=== PATIENT | female | born 1940 | race Caucasian/White ===

== ENCOUNTER → 2018-01-07 02:07 | Outpatient (CLI) | payer MEDICARE, SELFPAY ==
[2018-01-07 08:31] LABS: Anion Gap 11.3 mmol/L (3-11); BUN 18 mg/dL (7-18); CO2 23.7 mmol/L (21.0-32.0); CREATININE 1.34 mg/dL (0.55-1.02); Calcium 8.9 mg/dL (8.5-10.1); Chloride 107 mmol/L (98-107); Estimated GFR 38.25 (mL/min/1.73m2); Glucose 93 mg/dL (70-100); Lithium 0.71 mmol/L (0.60-1.20); Potassium 4.6 mmol/L (3.5-5.1); Sodium 142 mmol/L (136-145)
== END ==
PROVIDERS: PCP Nurse Practitioner Family; Visit Provider Psychiatry & Neurology Psychiatry
DX: F31.9 Bipolar disorder, unspecified (principal); Z79.899 Other long term (current) drug therapy; I12.9 Hypertensive chronic kidney disease with stage 1 through stage 4 chronic kidney disease, or unspecified chronic kidney disease; N18.9 Chronic kidney disease, unspecified
CPT/HCPCS: 36415; 80048; 80178

== ENCOUNTER 2018-04-03 01:51 | Outpatient (CLI) | payer MEDICARE, SELFPAY ==
[2018-04-03 08:18] LABS: Anion Gap 9.3 mmol/L (3-11); BUN 16 mg/dL (7-18); CO2 24.7 mmol/L (21.0-32.0); CREATININE 1.31 mg/dL (0.55-1.02); Chloride 107 mmol/L (98-107); Estimated GFR 39.16 (mL/min/1.73m2); Glucose 95 mg/dL (70-100); Potassium 4.4 mmol/L (3.5-5.1); Sodium 141 mmol/L (136-145)
[2018-04-03 08:21] LABS: Lithium 0.61 mmol/L (0.60-1.20)
== END 2018-04-03 02:11 ==
PROVIDERS: PCP Nurse Practitioner Family; Visit Provider Psychiatry & Neurology Psychiatry
DX: Z79.899 Other long term (current) drug therapy (principal); Z51.81 Encounter for therapeutic drug level monitoring; F31.9 Bipolar disorder, unspecified; I10 Essential (primary) hypertension
CPT/HCPCS: 36415; 80048; 80178

== ENCOUNTER 2018-06-12 01:57 | Outpatient (CLI) | payer MEDICARE, SELFPAY ==
[2018-06-12 07:47] LABS: Absolute Basophil Count 0.01 k/cumm (0.0-0.2); Absolute Eosinophil Count 0.23 k/cumm (0.0-0.7); Absolute Lymphocyte Count 1.83 k/cumm (1.2-3.4); Absolute Monocyte Count 0.41 k/cumm (0.11-0.7); Basophils % 0.2; Eosinophils % 4.9; HCT 38.6 % (36.0-46.0); HGB 12.1 g/dL (12.0-15.5); Lymphocytes % 39.1; Mean Corp. HGB Concentration 31.3 g/dL (32.0-36.0); Mean Corpuscular Hemoglobin 27.3 pg (27.0-33.0); Mean Corpuscular Volume 86.9 fL (80-95); Mean Platelet Volume 9.2 fL (8.0-11.0); Monocytes % 8.8; Platelet Count 310 x1000/uL (130-400); RBC 4.44 m/cumm (4.00-5.20); RBC Distribution Width 14.8 % (11.7-14.6); White Blood Cell Count 4.68 k/cumm (4.4-10.8)
[2018-06-12 08:17] LABS: Anion Gap 13.6 mmol/L (3-11); BUN 18 mg/dL (7-18); CO2 21.4 mmol/L (21.0-32.0); CREATININE 1.56 mg/dL (0.55-1.02); Chloride 108 mmol/L (98-107); Cholesterol 247 mg/dL (50-200); Estimated GFR 32.02 (mL/min/1.73m2); Glucose 105 mg/dL (70-100); HDL Cholesterol 44 mg/dL (40-60); LDL CHOLESTEROL 163 mg/dL (<100); Potassium 4.2 mmol/L (3.5-5.1); Sodium 143 mmol/L (136-145); Triglyceride 223 mg/dL (30-150)
[2018-06-12 08:25] LABS: TSH (W/Ref FT4) 0.68 uIU/mL (0.358-3.74)
== END 2018-06-12 02:17 ==
PROVIDERS: PCP Nurse Practitioner Family; Visit Provider Psychiatry & Neurology Psychiatry
DX: E03.9 Hypothyroidism, unspecified (principal); E78.5 Hyperlipidemia, unspecified; I12.9 Hypertensive chronic kidney disease with stage 1 through stage 4 chronic kidney disease, or unspecified chronic kidney disease; N18.9 Chronic kidney disease, unspecified; F32.9 Major depressive disorder, single episode, unspecified; Z51.81 Encounter for therapeutic drug level monitoring; Z79.899 Other long term (current) drug therapy
CPT/HCPCS: 36415; 80048; 80061; 83721; 80178; 84443; 85025

== ENCOUNTER 2018-12-12 01:58 | Outpatient (CLI) | payer MEDICARE, SELFPAY ==
[2018-12-12 09:02] LABS: Lithium 0.54 mmol/L (0.60-1.20)
[2018-12-12 09:18] LABS: Anion Gap 11.9 mmol/L (3-11); BUN 22 mg/dL (7-18); CO2 22.1 mmol/L (21.0-32.0); CREATININE 1.35 mg/dL (0.55-1.02); Calcium 9.2 mg/dL (8.5-10.1); Chloride 108 mmol/L (98-107); Estimated GFR 37.83 (mL/min/1.73m2); Glucose 100 mg/dL (70-100); Potassium 4.2 mmol/L (3.5-5.1); Sodium 142 mmol/L (136-145); TSH 1.28 uIU/mL (0.358-3.74)
== END 2018-12-12 02:18 ==
PROVIDERS: PCP Nurse Practitioner Family; Visit Provider Psychiatry & Neurology Psychiatry
DX: Z79.899 Other long term (current) drug therapy (principal); Z51.81 Encounter for therapeutic drug level monitoring; E03.9 Hypothyroidism, unspecified; I10 Essential (primary) hypertension; F31.9 Bipolar disorder, unspecified
CPT/HCPCS: 36415; 80048; 80178; 84443

== ENCOUNTER 2018-12-20 23:05 | Emergency (ER) | payer MEDICARE, SELFPAY ==
[2018-12-20] VITALS (11 sets, daily range): BP systolic 131–156; BP diastolic 71–78; PULSE 92–99; RESP 18–26; TEMP 36.6; O2SAT 94–97
--- NOTE | 2018-12-20 23:23 | W.ED.GENAD ---
Discharge Plan Disposition Patient Disposition: HOME Condition: Good Discharge Details Chief Complaint: Nausea/Vomit/Diar Clinical Impression: Nausea, vomiting and diarrhea, Dizziness Primary Care Provider: Patricia Goss ED Provider: Tawanda Lee [place] Meds and New Rx's Prescriptions: New ondansetron 4 mg tablet,disintegrating 4 mg PO Q8H PRN (Reason: nausea and vomiting) Qty: 10 RF: 0 meclizine 25 mg tablet 25 mg PO BID PRN (Reason: dizziness) Qty: 10 RF: 0 Continued psyllium husk [Metamucil] 0.4 gram capsule 0.4 gm PO DAILY Qty: 90 RF: 3 multivitamin 1 EACH tablet 1 ea PO DAILY RF: 0 cholecalciferol (vitamin D3) [Vitamin D3] 2,000 UNIT tablet 2,000 unit PO DAILY RF: 0 acetaminophen [Tylenol Extra Strength] 500 MG tablet 500 mg PO Q6H PRN RF: 0 aspirin [Aspirin Low-Strength] 81 MG tablet,chewable 81 mg PO DAILY RF: 0 nortriptyline 25 MG capsule 50 mg PO HS RF: 0 lithium carbonate 450 MG tablet extended release 300 mg PO HS RF: 0 lorazepam 0.5 MG tablet 1 mg PO TID RF: 0 quetiapine [Seroquel] 50 MG tablet 100 mg PO HS RF: 0 polyethylene glycol 3350 [Miralax] 17 GM powder in packet 17 gm PO daily prn PRNQty: 1 RF: 11 Varicella-Zoster Ge/As01b/Pf [Shingrix Vial Kit] 50 MCG INJ 50 mcg IM ONCE Qty: 1 RF: 1 sodium chloride [Saline Nasal Mist] 44 ML aerosol,spray 44 ml NS QID Qty: 1 RF: 0 metoprolol succinate 50 mg tablet extended release 24 hr 50 mg PO DAILY Qty: 30 RF: 11 folic acid 1 mg tablet 1 mg PO DAILY Qty: 30 RF: 11 amlodipine 5 mg tablet 5 mg PO DAILY Qty: 30 RF: 11 pantoprazole 40 mg tablet,delayed release (DR/EC) 40 mg PO DAILY Qty: 30 RF: 11 levothyroxine 50 mcg tablet 50 mcg PO DAILY Qty: 30 RF: 11 Discharge Instructions Instructions: Acute Nausea and Vomiting (ED), Dizziness (ED) Additional Instructions: Take it easy over the weekend. Patient ordered to stay hydrated and drink fluids. Stick with a bland diet. You may use ondansetron for nausea and vomiting. You may use meclizine for dizziness. Follow-up with primary care next week. Return to the ED if you develop worsening dizziness, inability to ambulate, persistent vomiting, severe headache, new neurological changes, chest pain, other concerns. Referrals: Patricia Goss NP [Primary Care Provider] - Medical Decision Making Patient presenting with vomiting and diarrhea, onset tonight. Denies any pain. Is quite uncomfortable from nausea. IV established and laboratory studies obtained. Zofran and LR ordered. EKG is sinus at 99. Nonspecific ST changes noted. Nothing acute. 00:15 -patient's laboratory studies for the most part are unremarkable. White count is normal. Hemoglobin is normal. Chemistries with a baseline creatinine of 1.4. Little bit of an anion gap which has been present previously. Potassium a little low at 3.3. Liver function normal. Magnesium normal. [place] level low. Patient complains she still feels unwell although is very vague and nonspecific. Continues to deny pain. Has significant problems with anxiety. States she is feeling dizzy when she gets up but she has not got up while here. I am going to give a low dose of IV Ativan. Continue fluids. Give her a p.o. challenge and check orthostatics and ambulation. 02:30 -patient was able to ambulate to the bathroom without difficulty. She is not orthostatic at all. She still complains of being dizzy but cannot really describe that for me. Daughter reports prior history of vertigo. Patient is not really reporting the spinning sensation to me. She is tolerating zafar mello. Ativan did not seem to help her at all. Daughter cannot recall the name of medication she is used for vertigo in the past. Patient given dose of Antivert. Subsequently fell asleep. When she woke she actually stated she felt better. I do not think this is stroke related. She is nonfocal neurologically and she ambulated without difficulty. Will discharge home with prescription for Zofran and Antivert and have her follow-up with primary care next week. Return to the ED over the weekend if any worsening vertigo, new neurologic changes, persistent vomiting, chest pain, other concerns. Medical Records Medical records reviewed: Yes I reviewed the patient's medical records. Lab Data Lab results reviewed: Yes I reviewed the patient's lab results. ECG Data Attestation: I personally reviewed and interpreted this ECG (s) as follows: Prior ECG tracings: available for review Interpretation: Sinus rhythm at 99. Normal axis and intervals. Nonspecific ST changes, nondiagnostic. HPI General Mode of arrival: wheelchair. Date/Time Provider Initiated Documentation: 12/20/18 23:19. Limitations to Documentation: no limitations. Information obtained by: patient, family, RN notes reviewed and old records reviewed. HPI Narrative: Patient is brought in by daughter for evaluation of nausea, vomiting and diarrhea that started a couple of hours ago. She had some dizziness last night but no vomiting or diarrhea. She saw her primary care today for medication refills. Tonight began to have vomiting and diarrhea. She is also feeling dizzy again. She denies pain anywhere. Specifically no headache, chest pain/pressure, abdominal pain. There is been no hematemesis or hematochezia. She had no fever. Patient herself is not really answering a lot of questions because she is so uncomfortable from the nausea. Related Data Home Medications Medication Instructions Recorded Confirmed cholecalciferol (vitamin D3) 2,000 unit PO DAILY 09/18/12 12/20/18 [Vitamin D3] multivitamin 1 ea PO DAILY 09/18/12 12/20/18 acetaminophen [Tylenol Extra 500 mg PO Q6H PRN 12/31/13 12/20/18 Strength] aspirin [Aspirin Low-Strength] 81 mg PO DAILY tab.chew 12/11/14 12/20/18 nortriptyline 50 mg PO HS 06/17/15 12/20/18 lithium carbonate 300 mg PO HS 10/31/17 12/20/18 lorazepam 1 mg PO TID tab-cap 10/31/17 12/20/18 quetiapine [Seroquel] 100 mg PO HS 10/31/17 12/20/18 polyethylene glycol 3350 [Miralax] 17 gm PO daily prn PRN #1 canister 12/06/17 12/20/18 sodium chloride [Saline Nasal Mist] 44 ml NS QID #1 bottle 12/26/17 12/20/18 psyllium husk 0.4 gram capsule 0.4 gm PO DAILY #90 cap 06/07/18 12/20/18 amlodipine 5 mg tablet 5 mg PO DAILY #30 tab-cap 11/20/18 12/20/18 folic acid 1 mg tablet 1 mg PO DAILY #30 tab 11/20/18 12/20/18 levothyroxine 50 mcg tablet 50 mcg PO DAILY #30 tab 11/20/18 12/20/18 metoprolol succinate 50 mg 50 mg PO DAILY #30 tab-cap 11/20/18 12/20/18 tablet,extended release 24 hr pantoprazole 40 mg tablet,delayed 40 mg PO DAILY #30 tab 11/20/18 12/20/18 release meclizine 25 mg PO BID PRN #10 tab 12/21/18 ondansetron 4 mg PO Q8H PRN #10 tab 12/21/18 Previous Rx's Medication Instructions Recorded sodium chloride [Saline Nasal Mist] 44 ml NS QID #1 bottle 12/26/17 psyllium husk 0.4 gram capsule 0.4 gm PO DAILY #90 cap 06/07/18 amlodipine 5 mg tablet 5 mg PO DAILY #30 tab-cap 11/20/18 folic acid 1 mg tablet 1 mg PO DAILY #30 tab 11/20/18 levothyroxine 50 mcg tablet 50 mcg PO DAILY #30 tab 11/20/18 metoprolol succinate 50 mg 50 mg PO DAILY #30 tab-cap 11/20/18 tablet,extended release 24 hr pantoprazole 40 mg tablet,delayed 40 mg PO DAILY #30 tab 11/20/18 release meclizine 25 mg PO BID PRN #10 tab 12/21/18 ondansetron 4 mg PO Q8H PRN #10 tab 12/21/18 Allergies Allergy/AdvReac Type Severity Reaction Status Date / Time fluoxetine Allergy Mild Unverified 12/20/18 09:53 olanzapine Allergy Mild Unverified 12/20/18 09:53 trazodone Allergy Mild Unverified 12/20/18 09:53 haloperidol AdvReac Severe Contraindic Unverified 12/20/18 09:53 ated Phenothiazines AdvReac Severe DYSTONIA Unverified 12/20/18 09:53 General Stated Complaint: Nausea/Vomit/Diar GRANT: 3 Review of Systems Review of Systems Unobtainable due to (patient not really answering questions at this time due to feeling unwell) [facility] Medical History (Updated 12/20/18 @ 23:34 by Tawanda Lee MD) Bipolar 2 disorder (Chronic 01/30/17) CKD (chronic kidney disease) Deep vein thrombosis (Resolved 12/08/13) ECT for depression, [facility] GERD (gastroesophageal reflux disease) (Chronic) HLD (hyperlipidemia) HTN (hypertension) Hypothyroidism (Chronic 11/11/12) Tardive dyskinesia (Chronic 04/17/16) Surgical History (Updated 12/20/18 @ 23:34 by Tawanda Lee MD) S/P ORIF (open reduction internal fixation) fracture (Acute) Social History Smoking/Tobacco Use Status: Never Alcohol Intake: former Drug use: Never Substance use type: does not use Number of Children: 2 Pets and animals: Yes Pets and animals: cat(s) Current gender identity: female What type of physical activity do you participate in: walking Frequency: daily Seatbelt use: always Do you feel safe at home: Yes Do you feel safe in your relationship?: Yes Exam Narrative Exam Narrative: Vitals: Afebrile. Tachypneic, tachycardic, elevated blood pressure, all likely related to anxiety and not feeling well. Normal saturations. Const: Elderly female who appears uncomfortable. HEENT: NC/AT. Normal facial exam. Eyes: Normal conjunctiva and sclera. Neck: Supple. Trachea midline. Lungs: Normal respiratory effort. Lungs are clear. Cor: RRR without murmur/gallop. Good distal pulses. GI: Soft. NT/ND. No guarding or rebound. Neuro: A+O x 3. CN grossly in tact. No focal deficits. Ext: No C/C/E. No deformity or tenderness. Skin: Warm and dry without rash. Course Vital Signs Temperature 97.9 F 12/20/18 23:11 Pulse 99 H 12/20/18 23:11 Respiratory Rate 26 H 12/20/18 23:11 Blood Pressure 156/74 H 12/20/18 23:11 Pulse Oximetry 95 12/20/18 23:11 Temperature 97.9 F 12/20/18 23:11 Pulse 99 H 12/20/18 23:11 Respiratory Rate 26 H 12/20/18 23:11 Blood Pressure 156/74 H 12/20/18 23:11 Blood Pressure Position Sitting 12/20/18 23:11 Pulse Oximetry 95 12/20/18 23:11 Oxygen Delivery Method Room Air 12/20/18 23:11 Oxygen Flow Rate 0 12/20/18 23:11
[2018-12-20 23:34] LABS: Abs Immature Grans 0.02 k/cumm (0.0-0.09); Absolute Basophil Count 0.01 k/cumm (0.0-0.2); Absolute Eosinophil Count 0.03 k/cumm (0.0-0.7); Absolute Lymphocyte Count 1.16 k/cumm (1.2-3.4); Absolute Monocyte Count 0.43 k/cumm (0.11-0.7); Absolute Neutrophil Count 7.62 k/cumm (1.2-6.7); Basophils % 0.1; Eosinophils % 0.3; HCT 37.6 % (36.0-46.0); HGB 12.2 g/dL (12.0-15.5); Immature Grans % 0.2; Lymphocytes % 12.5; Mean Corp. HGB Concentration 32.4 g/dL (32.0-36.0); Mean Corpuscular Volume 86.2 fL (80-95); Mean Platelet Volume 9.1 fL (8.0-11.0); Monocytes % 4.6; Neutrophils % 82.3; Platelet Count 264 x1000/uL (130-400); RBC 4.36 m/cumm (4.00-5.20); RBC Distribution Width 14.9 % (11.7-14.6); White Blood Cell Count 9.27 k/cumm (4.4-10.8)
[2018-12-20] MEDS: Lactated Ringers 1,000 ML 150 ML IV (23:34)
[2018-12-20] MEDS: Ondansetron 4 MG/2 ML VIAL IVP (23:34)
[2018-12-20 23:53] LABS: ALT 23 U/L (12-78); AST 19 U/L (15-37); Alkaline Phosphatase 83 U/L (46-116); Anion Gap 16.8 mmol/L (3-11); BUN 18 mg/dL (7-18); Bilirubin, Total 0.3 mg/dL (0.2-1.0); CO2 22.2 mmol/L (21.0-32.0); CREATININE 1.39 mg/dL (0.55-1.02); Calcium 9.1 mg/dL (8.5-10.1); Chloride 102 mmol/L (98-107); Estimated GFR 36.57 (mL/min/1.73m2); Glucose 179 mg/dL (70-100); Magnesium 2.1 mg/dL (1.8-2.4); Potassium 3.3 mmol/L (3.5-5.1); Sodium 141 mmol/L (136-145)
[2018-12-21] VITALS (23 sets, daily range): BP systolic 128–157; BP diastolic 67–92; PULSE 87–104; RESP 14–32; TEMP 36.8; O2SAT 95–98
[2018-12-21] LABS: Troponin I < 0.05 ng/mL (0.00-0.06)
[2018-12-21 00:04] LABS: Lithium 0.41 mmol/L (0.60-1.20)
[2018-12-21] MEDS: LORazepam 2 MG/ML VIAL 0.5 MG IVP (00:22)
--- NOTE | 2018-12-21 01:14 | NUR.NOTE ---
Nursing Note: Pt ambulated with steady gait stand by assist only to bathroom, voided then back into bed. Pt still c/o feeling dizzy. Dr. batres made aware.
--- NOTE | 2018-12-21 01:21 | NUR.NOTE ---
Nursing Note: Pt given zafar mello to sip on.
[2018-12-21] MEDS: Meclizine 25 MG TAB PO (01:30)
--- NOTE | 2018-12-21 02:13 | NUR.NOTE ---
Nursing Note: Pt tolerating po fluids.
== END 2018-12-21 02:47 | disposition home or self-care (01) ==
PROVIDERS: Emergency Provider Emergency Medicine; PCP Nurse Practitioner Family
DX: R11.2 Nausea with vomiting, unspecified (principal); R42 Dizziness and giddiness; F41.9 Anxiety disorder, unspecified; I12.9 Hypertensive chronic kidney disease with stage 1 through stage 4 chronic kidney disease, or unspecified chronic kidney disease; N18.9 Chronic kidney disease, unspecified
CPT/HCPCS: 36415; 80053; 93005; 96361; 96374; 96375; 99284; 80178; 83735; 84484; 85025; 93010; 99285; J2060; J2405

== ENCOUNTER 2019-01-11 14:05 | Emergency (ER) | payer MEDICARE, SELFPAY ==
--- NOTE | 2019-01-11 14:09 | NUR.NOTE ---
Nursing Note: daughter has taken PT in stating primary compliant of anxiety as a result of N/V/D that was present yesterday but absent today as well as a rash. PT has a history of anxiety and was given 1MG of ativan at 1300 daughter states that Ativan had no efect and PT is still nervous
[2019-01-11 14:14] VITALS: BP 137/77; PULSE 111; RESP 19; TEMP 36.5; O2SAT 98
[2019-01-11 15:13] LABS: Bilirubin Negative (Negative); Blood Negative (Negative); Clarity Clear (Clear); Glucose Negative (Negative); Ketones Negative (Negative); Leukocyte Esterase Negative (Negative); Nitrite Negative (Negative); Urobilinogen 0.2 EU/dL (Up TO 0.2); pH 7.5 (5-8)
[2019-01-11 15:50] LABS: Abs Immature Grans 0.01 k/cumm (0.0-0.09); Absolute Basophil Count 0.01 k/cumm (0.0-0.2); Absolute Eosinophil Count 0.08 k/cumm (0.0-0.7); Absolute Monocyte Count 0.71 k/cumm (0.11-0.7); Basophils % 0.1; Eosinophils % 0.8; HCT 40.5 % (36.0-46.0); Immature Grans % 0.1; Lymphocytes % 18.9; Mean Corp. HGB Concentration 32.1 g/dL (32.0-36.0); Mean Corpuscular Hemoglobin 27.8 pg (27.0-33.0); Mean Corpuscular Volume 86.5 fL (80-95); Mean Platelet Volume 8.5 fL (8.0-11.0); Monocytes % 7.5; Neutrophils % 72.6; Platelet Count 358 x1000/uL (130-400); RBC 4.68 m/cumm (4.00-5.20); RBC Distribution Width 15.4 % (11.7-14.6); White Blood Cell Count 9.51 k/cumm (4.4-10.8)
[2019-01-11 16:05] LABS: ALT 25 U/L (12-78); AST 29 U/L (15-37); Albumin 3.7 g/dL (3.4-5.0); Alkaline Phosphatase 89 U/L (46-116); Anion Gap 13.6 mmol/L (3-11); BUN 12 mg/dL (7-18); Bilirubin, Total 0.5 mg/dL (0.2-1.0); CO2 21.4 mmol/L (21.0-32.0); CREATININE 1.29 mg/dL (0.55-1.02); Calcium 9.5 mg/dL (8.5-10.1); Chloride 104 mmol/L (98-107); Estimated GFR 39.87 (mL/min/1.73m2); Glucose 105 mg/dL (70-100); Potassium 3.9 mmol/L (3.5-5.1); Sodium 139 mmol/L (136-145); Total Protein 8.1 g/dL (6.4-8.2)
[2019-01-11] MEDS: LORazepam 2 MG/ML VIAL 1 MG IVP (16:37)
[2019-01-11] MEDS: Ondansetron 4 MG/2 ML VIAL IVP (16:52)
[2019-01-11] MEDS: Clotrimazole 1% 15 GM TUBE TP (16:55)
--- NOTE | 2019-01-11 16:56 | ED.GENADUL_ITS ---
Discharge Plan Disposition Patient Disposition: HOME Condition: Improving Discharge Details Chief Complaint: Anxiety Clinical Impression: Anxiety, Vomiting and diarrhea Primary Care Provider: Patricia Goss ED Provider: Judith Wallace Home Meds and New Rx's Prescriptions: Continued psyllium husk [Metamucil] 0.4 gram capsule 0.4 gm PO DAILY Qty: 90 RF: 3 multivitamin 1 EACH tablet 1 ea PO DAILY RF: 0 cholecalciferol (vitamin D3) [Vitamin D3] 2,000 UNIT tablet 2,000 unit PO DAILY RF: 0 acetaminophen [Tylenol Extra Strength] 500 MG tablet 500 mg PO Q6H PRN RF: 0 aspirin [Aspirin Low-Strength] 81 MG tablet,chewable 81 mg PO DAILY RF: 0 nortriptyline 25 MG capsule 50 mg PO HS RF: 0 lithium carbonate 450 MG tablet extended release 300 mg PO HS RF: 0 lorazepam 0.5 MG tablet 1 mg PO TID RF: 0 quetiapine [Seroquel] 50 MG tablet 100 mg PO HS RF: 0 polyethylene glycol 3350 [Miralax] 17 GM powder in packet 17 gm PO daily prn PRNQty: 1 RF: 11 Varicella-Zoster Ge/As01b/Pf [Shingrix Vial Kit] 50 MCG INJ 50 mcg IM ONCE Qty: 1 RF: 1 sodium chloride [Saline Nasal Mist] 44 ML aerosol,spray 44 ml NS QID Qty: 1 RF: 0 metoprolol succinate 50 mg tablet extended release 24 hr 50 mg PO DAILY Qty: 30 RF: 11 folic acid 1 mg tablet 1 mg PO DAILY Qty: 30 RF: 11 amlodipine 5 mg tablet 5 mg PO DAILY Qty: 30 RF: 11 pantoprazole 40 mg tablet,delayed release (DR/EC) 40 mg PO DAILY Qty: 30 RF: 11 levothyroxine 50 mcg tablet 50 mcg PO DAILY Qty: 30 RF: 11 meclizine 25 mg tablet 25 mg PO BID PRN (Reason: dizziness) Qty: 10 RF: 0 ondansetron 4 mg tablet,disintegrating 4 mg PO Q8H PRN (Reason: nausea and vomiting) Qty: 10 RF: 0 Discharge Instructions Instructions: Acute Nausea and Vomiting (ED), Acute Diarrhea (ED), Anxiety (ED) Additional Instructions: Take your Zofran that you have at home as needed and directed for nausea or vomiting. Take your Ativan that you have at home as needed directed for your anxiety. Call your primary care doctor on Sunday to schedule follow-up appointment for reevaluation. Return immediately to the emergency department if you develop any worsening or new concerning symptoms. Discharge Data Discharge Date/Time-TO BE ENTERED AT DEPARTURE: 01/11/19 18:48 Discharge Physician: Judith Wallace Medical Decision Making 78-year-old female with history of bipolar, anxiety, hypertension, hypothyroidism who presents with dizziness yesterday and vomiting and diarrhea for the past 2 days. Daughter also states that patient is significantly anxious due to her symptoms. She also states she has what appears to be a yeast infection in her groin which patient is very anxious about. Heart rate 111. Remainder vitals within normal limits. She appears nontoxic. She is significantly anxious and has difficulty answering questions due to her anxiety. She is noted to be shaking and frequently running her hands through her head and hair with questioning. Screening labs checked on arrival which are unremarkable. Urinalysis negative. EKG done to complain of dizziness which notes a rate of 88, sinus and no acute ST ischemic changes. Patient given a dose of Zofran, Ativan, bolus IV fluids as well as clotrimazole cream to bilateral groin. Will reassess. 1800 --patient feels much better. She is no longer shaking and appears, relaxed. Clotrimazole cream applied to bilateral groin. Daughter admitted that patient has been having several episodes of dizziness for the past few weeks. Patient has no focal deficits on exam. A CT head was done which was negative. Daughter feels comfortable taking patient home. Patient has Ativan, meclizine and Zofran at home which she is advised to take as needed. Advised to call the primary care doctor to schedule a follow-up appointment for reevaluation and to return here at any time if worse. Medical Records Medical records reviewed: Yes I reviewed the patient's medical records. Lab Data Lab results reviewed: Yes I reviewed the patient's lab results. Laboratory Tests Range/Units 01/11/19 01/11/19 01/11/19 15:05 15:44 15:44 WBC (4.4-10.8) k/cumm 9.51 RBC (4.00-5.20) m/cumm 4.68 Hgb (12.0-15.5) g/dL 13.0 Hct (36.0-46.0) % 40.5 MCV (80-95) fL 86.5 MCH (27.0-33.0) pg 27.8 MCHC (32.0-36.0) g/dL 32.1 RDW (11.7-14.6) % 15.4 H Plt Count (130-400) x1000/uL 358 MPV (8.0-11.0) fL 8.5 Immature Gran % 0.1 Neutrophils % 72.6 Lymphocytes % 18.9 Monocytes % 7.5 Eosinophils % 0.8 Basophils % 0.1 Absolute Neutrophils (1.2-6.7) k/cumm 6.90 H Absolute Lymphocytes (1.2-3.4) k/cumm 1.80 Absolute Monocytes (0.11-0.7) k/cumm 0.71 H Absolute Eosinophils (0.0-0.7) k/cumm 0.08 Absolute Basophils (0.0-0.2) k/cumm 0.01 Sodium (136-145) mmol/L 139 Potassium (3.5-5.1) mmol/L 3.9 Chloride (98-107) mmol/L 104 Carbon Dioxide (21.0-32.0) mmol/L 21.4 Anion Gap (3-11) mmol/L 13.6 H BUN (7-18) mg/dL 12 Creatinine (0.55-1.02) mg/dL 1.29 H Estimated GFR/1.73 m2 (mL/min/1.73m2) 39.87 Glucose (70-100) mg/dL 105 H Calcium (8.5-10.1) mg/dL 9.5 Total Bilirubin (0.2-1.0) mg/dL 0.5 AST (15-37) U/L 29 ALT (12-78) U/L 25 Alkaline Phosphatase (46-116) U/L 89 Total Protein (6.4-8.2) g/dL 8.1 Albumin (3.4-5.0) g/dL 3.7 Urine Color (Yellow) Yellow Urine Clarity (Clear) Clear Urine pH (5-8) 7.5 Ur Specific Gregory (1.005-1.025) 1.010 Urine Protein (Negative) mg/dL Negative Urine Ketones (Negative) mg/dL Negative Urine Blood (Negative) Negative Urine Nitrite (Negative) Negative Urine Bilirubin (Negative) Negative Urine Urobilinogen (Up TO 0.2) EU/dL 0.2 Ur Leukocyte Esterase (Negative) Negative Urine Glucose (Negative) mg/dL Negative ECG Data Attestation: I personally reviewed and interpreted this ECG (s) as follows: Interpretation: rate of 83, sinus, [address] depression in 1, V4, V5 and V6 which is been seen in previous EKG. T wave inversion in V2 which is new compared to previous. There is no acute ST elevation. MD 170. QTc 501 which appears unchanged from previous. HPI General Mode of arrival: ambulatory . Date/Time Provider Initiated Documentation: 01/11/19 14:45 . Limitations to Documentation: no limitations . Information obtained by: patient and family . HPI Narrative: Patient is a 78-year-old female with a history of hypertension, hypothyroidism, anxiety, depression, bipolar disorder who presents to the ED with feelings of anxiety, nausea, vomiting, diarrhea and dizziness since yesterday. Patient presents with daughter who provides most of the history as patient is significantly anxious and hard of hearing and has difficulty providing some details of the history. Daughter states that patient vomited 3 times and had diarrhea 2 times since yesterday. C states patient complained mainly of dizziness yesterday morning but denies any at present. Daughter states that patient is significantly anxious and takes Ativan at home for this. Daughter states patient also has a bilateral groin rash which she would like evaluated. She states she has been eating and drinking. She denies any fever, coughing, headache, neck pain, chest pain, shortness of breath, abdominal pain, recent travel, recent surgery, recent antibiotics, sick contacts or new medications. Related Data Home Medications Medication Instructions Recorded Confirmed cholecalciferol (vitamin D3) 2,000 unit PO DAILY 09/18/12 01/11/19 [Vitamin D3] multivitamin 1 ea PO DAILY 09/18/12 01/11/19 acetaminophen [Tylenol Extra 500 mg PO Q6H PRN 12/31/13 01/11/19 Strength] aspirin [Aspirin Low-Strength] 81 mg PO DAILY tab.chew 12/11/14 01/11/19 nortriptyline 50 mg PO HS 06/17/15 01/11/19 lithium carbonate 300 mg PO HS 10/31/17 01/11/19 lorazepam 1 mg PO TID tab-cap 10/31/17 01/11/19 quetiapine [Seroquel] 100 mg PO HS 10/31/17 01/11/19 polyethylene glycol 3350 [Miralax] 17 gm PO daily prn PRN #1 canister 12/06/17 01/11/19 sodium chloride [Saline Nasal Mist] 44 ml NS QID #1 bottle 12/26/17 01/11/19 psyllium husk 0.4 gram capsule 0.4 gm PO DAILY #90 cap 06/07/18 01/11/19 amlodipine 5 mg tablet 5 mg PO DAILY #30 tab-cap 11/20/18 01/11/19 folic acid 1 mg tablet 1 mg PO DAILY #30 tab 11/20/18 01/11/19 levothyroxine 50 mcg tablet 50 mcg PO DAILY #30 tab 11/20/18 01/11/19 metoprolol succinate 50 mg 50 mg PO DAILY #30 tab-cap 11/20/18 01/11/19 tablet,extended release 24 hr pantoprazole 40 mg tablet,delayed 40 mg PO DAILY #30 tab 11/20/18 01/11/19 release ondansetron 4 mg PO Q8H PRN #10 tab 12/21/18 01/11/19 meclizine 25 mg tablet 25 mg PO BID PRN #10 tab 01/10/19 01/11/19 Previous Rx's Medication Instructions Recorded sodium chloride [Saline Nasal Mist] 44 ml NS QID #1 bottle 12/26/17 psyllium husk 0.4 gram capsule 0.4 gm PO DAILY #90 cap 06/07/18 amlodipine 5 mg tablet 5 mg PO DAILY #30 tab-cap 11/20/18 folic acid 1 mg tablet 1 mg PO DAILY #30 tab 11/20/18 levothyroxine 50 mcg tablet 50 mcg PO DAILY #30 tab 11/20/18 metoprolol succinate 50 mg 50 mg PO DAILY #30 tab-cap 11/20/18 tablet,extended release 24 hr pantoprazole 40 mg tablet,delayed 40 mg PO DAILY #30 tab 11/20/18 release ondansetron 4 mg PO Q8H PRN #10 tab 12/21/18 meclizine 25 mg tablet 25 mg PO BID PRN #10 tab 01/10/19 Allergies Allergy/AdvReac Type Severity Reaction Status Date / Time fluoxetine Allergy Mild Unverified 01/11/19 14:16 olanzapine Allergy Mild Unverified 01/11/19 14:16 trazodone Allergy Mild Unverified 01/11/19 14:16 haloperidol AdvReac Severe Contraindic Unverified 01/11/19 14:16 ated Phenothiazines AdvReac Severe DYSTONIA Unverified 01/11/19 14:16 General Stated Complaint: Anxiety GRANT: 4 Review of Systems Review of Systems All systems reviewed & are unremarkable except as noted in HPI and below Constitutional Reports as per HPI, Denies chills and Denies fever(s) Eyes Denies blurry vision ENT Denies dizziness, Denies sore throat and Denies throat swelling Cardiovascular Denies chest pain and Denies dyspnea Respiratory Denies cough and Denies dyspnea Gastrointestinal Denies abdominal pain, Reports diarrhea and Reports vomiting Genitourinary Denies hematuria and Denies dysuria Musculoskeletal Denies back pain and Denies numbness Integumentary/Breasts Denies lesions and Denies rash Neurologic Denies dizziness, Denies focal weakness and Denies numbness Psychiatric Reports anxiety Allergic/Immunologic Denies throat swelling [facility] Medical History Bipolar 2 disorder (Chronic 01/30/17) CKD (chronic kidney disease) Deep vein thrombosis (Resolved 12/08/13) ECT for depression, [facility] GERD (gastroesophageal reflux disease) (Chronic) HLD (hyperlipidemia) HTN (hypertension) Hypothyroidism (Chronic 11/11/12) Tardive dyskinesia (Chronic 04/17/16) Surgical History S/P ORIF (open reduction internal fixation) fracture (Acute) Social History Smoking/Tobacco Use Status: Never Alcohol Intake: former Drug use: Never Substance use type: does not use Number of Children: 2 Pets and animals: Yes Pets and animals: cat(s) Current gender identity: female What type of physical activity do you participate in: walking Frequency: daily Seatbelt use: always Do you feel safe at home: Yes Do you feel safe in your relationship?: Yes Exam Const General: cooperative, healthy appearing and anxious (Difficulty answering questions due to anxiety) HENMT Head: normal to inspection Face and sinus: normal facial exam Eyes General: appearance normal, both eyes and all related structures EOM: EOM intact bilaterally Neck Neck: normal visual inspection and No submandibular swelling Lymphatic: no lymphadenopathy noted Chest Chest: normal inspection of the chest and no tenderness Resp Effort & Inspection: normal respiratory effort and able to speak in complete sentences Auscultation: clear to auscultation bilaterally Cardio Rate: regular rate Rhythm: regular rhythm GI Inspection: normal to inspection Palpation: soft, not firm, not rigid and nontender Auscultation: normal bowel sounds Skin General skin exam: no rashes or lesions noted Neuro General: alert, awake and oriented x3 Cranial Nerves: CN's II-XI intact bilaterally Cognition: normal cognition Speech: speech normal Motor: muscle tone normal throughout and strength 5/5 throughout Sensory Exam: no sensory deficits noted Extrem General: normal to inspection, full ROM, normal capillary refill, no calf tenderness bilaterally and no edema Psych Appearance: grossly normal Mental Status: mental status grossly normal Speech and Movement: speech and movement normal Affect: anxious affect Course Vital Signs Temperature 97.7 F 01/11/19 14:14 Pulse 111 H 01/11/19 14:14 Respiratory Rate 01/11/19 14:14 Blood Pressure 137/77 01/11/19 14:14 Pulse Oximetry 98 01/11/19 14:14 Temperature 97.7 F 01/11/19 14:14 Temperature Source Skin 01/11/19 14:14 Pulse 111 H 01/11/19 14:14 Respiratory Rate 01/11/19 14:14 Respiratory Effort 01/11/19 16:17 Blood Pressure 137/77 01/11/19 14:14 Blood Pressure Position Sitting 01/11/19 14:14 Pulse Oximetry 98 01/11/19 14:14 Oxygen Delivery Method Room Air 01/11/19 14:14 Oxygen Flow Rate 0 01/11/19 14:14 Pain Level 0 01/11/19 14:14 Lab/Test Results Lab/Test Results: Laboratory Tests Range/Units 01/11/19 01/11/19 01/11/19 15:05 15:44 15:44 WBC (4.4-10.8) k/cumm 9.51 RBC (4.00-5.20) m/cumm 4.68 Hgb (12.0-15.5) g/dL 13.0 Hct (36.0-46.0) % 40.5 MCV (80-95) fL 86.5 MCH (27.0-33.0) pg 27.8 MCHC (32.0-36.0) g/dL 32.1 RDW (11.7-14.6) % 15.4 H Plt Count (130-400) x1000/uL 358 MPV (8.0-11.0) fL 8.5 Immature Gran % 0.1 Neutrophils % 72.6 Lymphocytes % 18.9 Monocytes % 7.5 Eosinophils % 0.8 Basophils % 0.1 Absolute Neutrophils (1.2-6.7) k/cumm 6.90 H Absolute Lymphocytes (1.2-3.4) k/cumm 1.80 Absolute Monocytes (0.11-0.7) k/cumm 0.71 H Absolute Eosinophils (0.0-0.7) k/cumm 0.08 Absolute Basophils (0.0-0.2) k/cumm 0.01 Sodium (136-145) mmol/L 139 Potassium (3.5-5.1) mmol/L 3.9 Chloride (98-107) mmol/L 104 Carbon Dioxide (21.0-32.0) mmol/L 21.4 Anion Gap (3-11) mmol/L 13.6 H BUN (7-18) mg/dL 12 Creatinine (0.55-1.02) mg/dL 1.29 H Estimated GFR/1.73 m2 (mL/min/1.73m2) 39.87 Glucose (70-100) mg/dL 105 H Calcium (8.5-10.1) mg/dL 9.5 Total Bilirubin (0.2-1.0) mg/dL 0.5 AST (15-37) U/L 29 ALT (12-78) U/L 25 Alkaline Phosphatase (46-116) U/L 89 Total Protein (6.4-8.2) g/dL 8.1 Albumin (3.4-5.0) g/dL 3.7 Urine Color (Yellow) Yellow Urine Clarity (Clear) Clear Urine pH (5-8) 7.5 Ur Specific Gregory (1.005-1.025) 1.010 Urine Protein (Negative) mg/dL Negative Urine Ketones (Negative) mg/dL Negative Urine Blood (Negative) Negative Urine Nitrite (Negative) Negative Urine Bilirubin (Negative) Negative Urine Urobilinogen (Up TO 0.2) EU/dL 0.2 Ur Leukocyte Esterase (Negative) Negative Urine Glucose (Negative) mg/dL Negative
[2019-01-11] MEDS: Normal Saline Flush 10 ML SYR IVP (17:01)
--- NOTE | 2019-01-11 17:49 | DI.CT_ITS ---
SYMPTOM/DIAGNOSIS: DIZZINESS,. ? ACUTE CVA NONCONTRAST HEAD CT: A noncontrast cranial CT was performed. There is moderate generalized cerebral atrophy and there are patchy areas of decreased attenuation and periventricular white matter bilaterally consistent with microvascular ischemic changes. The orbital and temporal bone structures appear intact. Paranasal sinuses and mastoid air cells appear clear. CONCLUSION: No evidence of acute intracranial process. Cerebral atrophy and white matter changes noted as described above.
--- NOTE | 2019-01-11 18:19 | DI.VRAD_ITS ---
EXAM: CT Head Without Contrast EXAM DATE/TIME: 01/11/2019 5:50 PM CLINICAL HISTORY: 78 years old, female; Anxiety TECHNIQUE: Imaging protocol: Computed tomography images of the head without contrast. Coronal and sagittal reformatted images were created and reviewed. COMPARISON: CT HEAD WITHOUT CONTRAST 07/21/2017 1:53 PM FINDINGS: Brain: Periventricular white matter areas of decreased density which are likely secondary to chronic ischemia from microvascular change. No acute intracranial hemorrhage. Diffuse cerebral atrophy. No mass effect or midline shift. No extra-axial fluid collection. Ventricles: Ventricular prominence in this patient with diffuse cerebral atrophy. Bones/joints: No acute fracture. Hyperostosis frontalis internus. Sinuses: Left ethmoid benign osteoma. Otherwise, no significant disease of the paranasal sinuses. Mastoid air cells: No mastoiditis. Soft tissues: Unremarkable. Vasculature: Arterial calcification. IMPRESSION: 1. No acute intracranial findings - no changes compared to 07/21/2017. 2. Diffuse cerebral atrophy and age-related periventricular white matter changes. Dictated and Authenticated by: Mike Rabago MD. Ordering:WILLIS Wong MD
[2019-01-11 18:44] VITALS: BP 171/69; PULSE 92; RESP 16; TEMP 36.7; O2SAT 97
== END 2019-01-11 18:48 | disposition home or self-care (01) ==
PROVIDERS: Emergency Provider Physician Assistant; PCP Nurse Practitioner Family
DX: F41.9 Anxiety disorder, unspecified (principal); R11.0 Nausea; I12.9 Hypertensive chronic kidney disease with stage 1 through stage 4 chronic kidney disease, or unspecified chronic kidney disease; N18.9 Chronic kidney disease, unspecified
CPT/HCPCS: 36415; 80053; 93005; 96374; 96375; 99285; 70450; 81003; 85025; 93010; J2060; J2405

== ENCOUNTER 2019-04-01 01:51 | Outpatient (CLI) | payer MEDICARE, SELFPAY ==
[2019-04-01 08:12] LABS: Lithium 0.53 mmol/L (0.60-1.20)
[2019-04-01 08:27] LABS: Anion Gap 11.1 mmol/L (3-11); BUN 16 mg/dL (7-18); CO2 24.9 mmol/L (21.0-32.0); CREATININE 1.32 mg/dL (0.55-1.02); Chloride 109 mmol/L (98-107); Estimated GFR 38.72 (mL/min/1.73m2); Potassium 4.3 mmol/L (3.5-5.1); Sodium 145 mmol/L (136-145); TSH 1.65 uIU/mL (0.36-3.74)
== END 2019-04-01 02:11 ==
PROVIDERS: PCP Nurse Practitioner Family; Visit Provider Nurse Practitioner Family
DX: F31.81 Bipolar II disorder (principal); Z79.899 Other long term (current) drug therapy; Z51.81 Encounter for therapeutic drug level monitoring
CPT/HCPCS: 36415; 80051; 84520; 80178; 82565; 84443

== ENCOUNTER 2019-04-19 04:40 | Emergency (ER) | payer MEDICARE, SELFPAY ==
[2019-04-19] VITALS (30 sets, daily range): BP systolic 141–158; BP diastolic 71–103; PULSE 85–132; RESP 16–31; TEMP 36.8; O2SAT 92–96
--- NOTE | 2019-04-19 05:25 | DI.CT_ITS ---
EXAM: CT CHEST/ABD/PEL WO CLINICAL HISTORY: fell, right flank and chest pain, r/o fracture TECHNIQUE: Noncontrast COMPARISON: No exams were available for comparison FINDINGS: There are fractures of the right 8th and 9th ribs. There is no evidence of pneumothorax, pleural or pericardial effusions. There is mild lingular atelectasis. There are old healed rib fractures on t he left. There are mild compression fractures of T8 and T10. Degenerative disc changes and facet deg enerative changes are seen. The liver, gallbladder, spleen, pancreas, kidneys and adrenals are unrem arkable. There is a large hiatal hernia. There is no bowel dilatation, free air or free fluid. The re is calcification in the aorta but no evidence of an aneurysm. Urinary bladder is somewhat distend ed but otherwise unremarkable. The uterus has a postmenopausal appearance. IMPRESSION: Acute fractures of the right 8th and 9th ribs.
[2019-04-19 05:27] LABS: Abs Immature Grans 0.01 k/cumm (0.0-0.09); Absolute Basophil Count 0.02 k/cumm (0.0-0.2); Absolute Eosinophil Count 0.33 k/cumm (0.0-0.7); Absolute Lymphocyte Count 2.03 k/cumm (1.2-3.4); Absolute Monocyte Count 0.55 k/cumm (0.11-0.7); Absolute Neutrophil Count 2.82 k/cumm (1.2-6.7); Basophils % 0.3; Eosinophils % 5.7; HCT 37.5 % (36.0-46.0); HGB 11.7 g/dL (12.0-15.5); Immature Grans % 0.2; Lymphocytes % 35.2; Mean Corp. HGB Concentration 31.2 g/dL (32.0-36.0); Mean Corpuscular Hemoglobin 27.9 pg (27.0-33.0); Mean Corpuscular Volume 89.3 fL (80-95); Monocytes % 9.5; Neutrophils % 49.1; Platelet Count 318 x1000/uL (130-400); RBC Distribution Width 14.9 % (11.7-14.6); White Blood Cell Count 5.76 k/cumm (4.4-10.8)
[2019-04-19] MEDS: Lidocaine 5% Patch 1 PATCH TP (05:30)
[2019-04-19] MEDS: Acetaminophen 500 MG TAB 1000 MG PO (05:30)
[2019-04-19 05:43] LABS: ALT 25 U/L (14-59); AST 16 U/L (15-37); Albumin 3.6 g/dL (3.4-5.0); Alkaline Phosphatase 72 U/L (46-116); Anion Gap 10.7 mmol/L (3-11); BUN 18 mg/dL (7-18); Bilirubin, Total 0.2 mg/dL (0.2-1.0); CO2 22.3 mmol/L (21.0-32.0); Chloride 108 mmol/L (98-107); Estimated GFR 36.18 (mL/min/1.73m2); Glucose 113 mg/dL (74-106); Potassium 3.7 mmol/L (3.5-5.1); Sodium 141 mmol/L (136-145); Total Protein 7.7 g/dL (6.4-8.2)
--- NOTE | 2019-04-19 05:44 | DI.VRAD_ITS ---
PROCEDURE INFORMATION: Exam: CT Chest Without Contrast Exam date and time: 04/19/2019 4:48 AM Age: 79 years old Clinical history: Injury or trauma; Initial encounter; Rlq; Blunt trauma (contusions or hematomas); Injury date: 04/19/2019; Injury details: Fall, right flank and chest pain, R/O fracture TECHNIQUE: Imaging protocol: Computed tomography of the chest without contrast. Radiation optimization: All CT scans at this facility use at least one of these dose optimization techniques: automated exposure control; mA and/or kV adjustment per patient size (includes targeted exams where dose is matched to clinical indication); or iterative reconstruction. COMPARISON: No relevant prior studies available. FINDINGS: Lungs: Atelectasis in the medial right middle lobe and lingula with no acute pulmonary infiltrate. Pleural space: Unremarkable. No pneumothorax. No pleural effusion. Heart: Unremarkable. No cardiomegaly. No pericardial effusion. Mediastinum: Prominent hiatal hernia. Patulous esophagus. Aorta: Unremarkable. No aortic aneurysm. Lymph nodes: Unremarkable. No enlarged lymph nodes. Bones/joints: Acute fractures of the right lateral ninth and possibly eighth ribs. Soft tissues: Unremarkable. IMPRESSION: Acute fractures of the right lateral ninth and possibly eighth ribs. PROCEDURE INFORMATION: Exam: CT Abdomen And Pelvis Without Contrast Exam date and time: 04/19/2019 4:48 AM Age: 79 years old Clinical history: Injury or trauma; Initial encounter; Rlq; Blunt trauma (contusions or hematomas); Injury date: 04/19/2019; Injury details: Fall, right flank and chest pain, R/O fracture TECHNIQUE: Imaging protocol: Computed tomography of the abdomen and pelvis without contrast. Radiation optimization: All CT scans at this facility use at least one of these dose optimization techniques: automated exposure control; mA and/or kV adjustment per patient size (includes targeted exams where dose is matched to clinical indication); or iterative reconstruction. COMPARISON: No relevant prior studies available. FINDINGS: Liver: Normal. No mass. Gallbladder and bile ducts: Normal. No calcified stones. No ductal dilation. Pancreas: Normal. No ductal dilation. Spleen: Normal. No splenomegaly. Adrenals: Normal. No mass. Kidneys and ureters: Normal. No hydronephrosis. Stomach and bowel: Unremarkable. No obstruction. No mucosal thickening. Appendix: No evidence of appendicitis. Intraperitoneal space: Unremarkable. No free air. No significant fluid collection. Vasculature: Unremarkable. No abdominal aortic aneurysm. Lymph nodes: Unremarkable. No enlarged lymph nodes. Bladder: Unremarkable as visualized. Reproductive: Unremarkable as visualized. Bones/joints: Unremarkable. No acute fracture. Soft tissues: Unremarkable. IMPRESSION: No acute findings. Dictated and Authenticated by: Reji Garcia MD. Ordering:NICKOLAS Mackay MD
--- NOTE | 2019-04-19 05:45 | W.ED.GENAD ---
Discharge Plan Disposition Patient Disposition: HOME Condition: Good Discharge Details Chief Complaint: Chest/Rib Clinical Impression: Right rib fracture Primary Care Provider: Patricia Goss ED Provider: Thompson Mireles Home Meds and New Rx's Prescriptions: New lidocaine [Lidoderm] 1 PATCH patch 1 patch Topical Q24H Qty: 4 RF: 0 No Action psyllium husk [Metamucil] 0.4 gram capsule 0.4 gm PO DAILY Qty: 90 RF: 3 multivitamin 1 EACH tablet 1 ea PO DAILY RF: 0 cholecalciferol (vitamin D3) [Vitamin D3] 2,000 UNIT tablet 2,000 unit PO DAILY RF: 0 acetaminophen [Tylenol Extra Strength] 500 MG tablet 500 mg PO Q6H PRN RF: 0 aspirin [Aspirin Low-Strength] 81 MG tablet,chewable 81 mg PO DAILY RF: 0 nortriptyline 25 MG capsule 50 mg PO HS RF: 0 lithium carbonate 450 MG tablet extended release 300 mg PO HS RF: 0 lorazepam 0.5 MG tablet 1 mg PO TID RF: 0 quetiapine [Seroquel] 50 MG tablet 100 mg PO HS RF: 0 Varicella-Zoster Ge/As01b/Pf [Shingrix Vial Kit] 50 MCG INJ 50 mcg IM ONCE Qty: 1 RF: 1 metoprolol succinate 50 mg tablet extended release 24 hr 50 mg PO DAILY Qty: 30 RF: 11 folic acid 1 mg tablet 1 mg PO DAILY Qty: 30 RF: 11 amlodipine 5 mg tablet 5 mg PO DAILY Qty: 30 RF: 11 pantoprazole 40 mg tablet,delayed release (DR/EC) 40 mg PO DAILY Qty: 30 RF: 11 levothyroxine 50 mcg tablet 50 mcg PO DAILY Qty: 30 RF: 11 meclizine 25 mg tablet 25 mg PO BID PRN (Reason: dizziness) Qty: 10 RF: 0 ondansetron 4 mg tablet,disintegrating 4 mg PO Q8H PRN (Reason: nausea and vomiting) Qty: 10 RF: 0 Discharge Instructions Instructions: Rib Fracture (ED) Additional Instructions: At this time you have a fracture of your potential 8 and ninth rib on the right. Please continue to use the patches, if your insurance does not cover these you can get [id number] patches at 4% and apply them as directed. Please use the incentive spirometer 5-10 times per day, in the way discussed with you. Continue to use Tylenol and Motrin as needed for pain. If you notice any worsening of your symptoms, or any new symptoms such as vomiting, diarrhea, fever, chills, shortness of breath, chest pain, numbness, weakness, or fainting , please return immediately to the emergency department for reevaluation. Please follow up with your primary care provider as soon as possible for reassessment and reevaluation. As always, it was a pleasure participating in your medical care today. Referrals: Patricia Goss NP [Primary Care Provider] - Medical Decision Making This is an 79-year-old female with a past medical history of bipolar, chronic kidney disease, hypertension high cholesterol who presents today for evaluation of right rib pain. Patient fell yesterday and hit her right ribs on the stove. Exam demonstrates no evidence of bruising but she does have mild reproducible tenderness of the right ribs. Because of the patient's age and mechanism CT scan was ordered, CT scan shows no evidence of pneumothorax, hemothorax, but does show evidence of mild acute fracture of the right lateral ninth and possibly eighth ribs. Patient's pain is slightly improved with NSAIDs and Lidoderm patch. No evidence of respiratory distress whatsoever. I did discuss oral medications versus rib block, and family has requested rib block. We will consult anesthesia to perform this. With no other acute process noted in the chest abdomen or pelvis see no clear clinical indication for admission at this time as the patient is notably stable. 8 AM Patient received rib block and had near complete resolution of her symptoms. Patient will be discharged home with incentive spirometry. Discussed red flags which to return. I have extensively reviewed the treatment plan and discharge instructions with the patient and their family. I have addressed all patient concerns at this time. The patient and family was made aware of what symptoms to monitor for that would warrant a return to the emergency department. Discussed the plan with the patient and family, they demonstrate verbal understanding and agreement with our assessment and plan at this time. EKG 4: 52 Rate 99, PA 170, QTc 485, QRS 104, sinus rhythm, no significant ST elevations or depressions, no evidence of STEMI. FINDINGS: Lungs: Atelectasis in the medial right middle lobe and lingula with no acute pulmonary infiltrate. Pleural space: Unremarkable. No pneumothorax. No pleural effusion. Heart: Unremarkable. No cardiomegaly. No pericardial effusion. Mediastinum: Prominent hiatal hernia. Patulous esophagus. Aorta: Unremarkable. No aortic aneurysm. Lymph nodes: Unremarkable. No enlarged lymph nodes. Bones/joints: Acute fractures of the right lateral ninth and possibly eighth ribs. Soft tissues: Unremarkable. IMPRESSION: Acute fractures of the right lateral ninth and possibly eighth ribs. FINDINGS: Liver: Normal. No mass. Gallbladder and bile ducts: Normal. No calcified stones. No ductal dilation. Pancreas: Normal. No ductal dilation. Spleen: Normal. No splenomegaly. Adrenals: Normal. No mass. Kidneys and ureters: Normal. No hydronephrosis. Stomach and bowel: Unremarkable. No obstruction. No mucosal thickening. Appendix: No evidence of appendicitis. Intraperitoneal space: Unremarkable. No free air. No significant fluid collection. Vasculature: Unremarkable. No abdominal aortic aneurysm. Lymph nodes: Unremarkable. No enlarged lymph nodes. Bladder: Unremarkable as visualized. Reproductive: Unremarkable as visualized. Bones/joints: Unremarkable. No acute fracture. Soft tissues: Unremarkable. IMPRESSION: No acute findings. Thank you for allowing us to participate in the care of your patient. Dictated and Authenticated by: Reji Garcia MD 04/19/2019 5:43 AM Eastern Time ([place] & [place]) HPI General Date/Time Provider Initiated Documentation: 04/19/19 04:41. HPI Narrative: This is an 79-year-old female with a past medical history of bipolar, depression, GERD, hypertension, chronic kidney disease, who presents today for evaluation of right rib pain. Patient states that yesterday she fell and hit her right ribs, did not hurt significantly then, however this evening while she was sleeping she woke up and had significant pain on the right side. Worse with movement palpation and breathing. She denies any cough fever or chills. She denies any tearing sensation in her chest. She denies any numbness tingling or weakness. She has not taken anything for the pain. She has no other complaints at this time. No other modifying factors. Related Data Home Medications Medication Instructions Recorded Confirmed cholecalciferol (vitamin D3) 2,000 unit PO DAILY 09/18/12 04/19/19 [Vitamin D3] multivitamin 1 ea PO DAILY 09/18/12 04/19/19 acetaminophen [Tylenol Extra 500 mg PO Q6H PRN 12/31/13 04/19/19 Strength] aspirin [Aspirin Low-Strength] 81 mg PO DAILY tab.chew 12/11/14 04/19/19 nortriptyline 50 mg PO HS 06/17/15 04/19/19 lithium carbonate 300 mg PO HS 10/31/17 04/19/19 lorazepam 1 mg PO TID tab-cap 10/31/17 04/19/19 quetiapine [Seroquel] 100 mg PO HS 10/31/17 04/19/19 psyllium husk 0.4 gram capsule 0.4 gm PO DAILY #90 cap 06/07/18 04/19/19 amlodipine 5 mg tablet 5 mg PO DAILY #30 tab-cap 11/20/18 04/19/19 folic acid 1 mg tablet 1 mg PO DAILY #30 tab 11/20/18 04/19/19 levothyroxine 50 mcg tablet 50 mcg PO DAILY #30 tab 11/20/18 04/19/19 metoprolol succinate 50 mg 50 mg PO DAILY #30 tab-cap 11/20/18 04/19/19 tablet,extended release 24 hr pantoprazole 40 mg tablet,delayed 40 mg PO DAILY #30 tab 11/20/18 04/19/19 release ondansetron 4 mg PO Q8H PRN #10 tab 12/21/18 04/19/19 meclizine 25 mg tablet 25 mg PO BID PRN #10 tab 01/10/19 04/19/19 lidocaine [Lidoderm] 1 patch TOPICAL Q24H #4 patch 04/19/19 Previous Rx's Medication Instructions Recorded psyllium husk 0.4 gram capsule 0.4 gm PO DAILY #90 cap 06/07/18 amlodipine 5 mg tablet 5 mg PO DAILY #30 tab-cap 11/20/18 folic acid 1 mg tablet 1 mg PO DAILY #30 tab 11/20/18 levothyroxine 50 mcg tablet 50 mcg PO DAILY #30 tab 11/20/18 metoprolol succinate 50 mg 50 mg PO DAILY #30 tab-cap 11/20/18 tablet,extended release 24 hr pantoprazole 40 mg tablet,delayed 40 mg PO DAILY #30 tab 11/20/18 release ondansetron 4 mg PO Q8H PRN #10 tab 12/21/18 meclizine 25 mg tablet 25 mg PO BID PRN #10 tab 08/16/19 lidocaine [Lidoderm] 1 patch TOPICAL Q24H #4 patch 04/19/19 Allergies Allergy/AdvReac Type Severity Reaction Status Date / Time fluoxetine Allergy Mild Unverified 04/19/19 07:19 olanzapine Allergy Mild Unverified 04/19/19 07:19 trazodone Allergy Mild Unverified 04/19/19 07:19 haloperidol AdvReac Severe Contraindic Unverified 04/19/19 07:19 ated Phenothiazines AdvReac Severe DYSTONIA Unverified 04/19/19 07:19 General GRANT: 4 Review of Systems All systems reviewed & are unremarkable except as noted in HPI and below PFSH Social History Smoking/Tobacco Use Status: Never Alcohol Intake: former Drug use: Never Substance use type: does not use Number of Children: 2 Pets and animals: Yes Pets and animals: cat(s) Current gender identity: female What type of physical activity do you participate in: walking Frequency: daily Seatbelt use: always Do you feel safe at home: Yes Do you feel safe in your relationship?: Yes Exam Narrative Exam Narrative: 1.Const: Well-nourished, Well-developed, appearing stated age 2.Eyes: PERRL, no conjunctival injection, and symmetrical lids. 3.ENT: Atraumatic external nose and ears. Moist MM. Neck: Symmetric, trachea midline, No thyromegaly. 4.CVS: +S1/S2, No murmurs or gallops. Peripheral pulses 2+ and equal in all extremities. Brisk capillary refill in all extremities. 5.RESP: Airway clear, no obstructions. No abrasions or ecchymosis. Chest movement symmetric with respirations. Trachea midline. No crepitus. No step offs. No paradoxical movements. Lungs are clear to auscultation bilaterally. No rales, rhonchi, wheezing or stridor. Breath sound symmetric. No Sucking chest wounds. No clinical evidence of significant chest trauma. Mild reproducible tenderness on the right aspect of the lower ribs around ribs 789. 6.GI: Soft, Nontender/Nondistended, No hepatosplenomegaly. No guarding or rebound. 7.MSK: Normocephalic/Atraumatic, Extremities w/o deformity No cyanosis or clubbing, Normal movement of all extremities. Please see respiratory for description of ribs 8.Skin: Warm, Dry. No rashes or lesions. 9.Neuro: venetian blind maker II-XII grossly intact. Sensation grossly intact, no focal neurologic deficits. 10.Psych: (AAO) x3. Appropriate mood and affect Course Lab/Test Results Lab/Test Results: Laboratory Tests Range/Units 04/19/19 05:10 WBC (4.4-10.8) k/cumm 5.76 RBC (4.00-5.20) m/cumm 4.20 Hgb (12.0-15.5) g/dL 11.7 L Hct (36.0-46.0) % 37.5 MCV (80-95) fL 89.3 MCH (27.0-33.0) pg 27.9 MCHC (32.0-36.0) g/dL 31.2 L RDW (11.7-14.6) % 14.9 H Plt Count (130-400) x1000/uL 318 MPV (8.0-11.0) fL 9.0 Immature Gran % 0.2 Neutrophils % 49.1 Lymphocytes % 35.2 Monocytes % 9.5 Eosinophils % 5.7 Basophils % 0.3 Absolute Neutrophils (1.2-6.7) k/cumm 2.82 Absolute Lymphocytes (1.2-3.4) k/cumm 2.03 Absolute Monocytes (0.11-0.7) k/cumm 0.55 Absolute Eosinophils (0.0-0.7) k/cumm 0.33 Absolute Basophils (0.0-0.2) k/cumm 0.02
[2019-04-19 05:51] LABS: Troponin I < 0.05 ng/Ml (<0.06)
[2019-04-19] MEDS: Bupivacaine 0.5% Pres-Free 30 ML VIAL (07:47)
[2019-04-19] MEDS: Bupivacaine LIPOSOME/PF 133 MG/10 ML VIAL IJ (07:47)
== END 2019-04-19 08:33 | disposition home or self-care (01) ==
PROVIDERS: Emergency Provider Student in an Organized Health Care Education/Training Program; PCP Nurse Practitioner Family
DX: R07.81 Pleurodynia (principal); S22.31XA Fracture of one rib, right side, initial encounter for closed fracture; W01.190A Fall on same level from slipping, tripping and stumbling with subsequent striking against furniture, initial encounter; I12.9 Hypertensive chronic kidney disease with stage 1 through stage 4 chronic kidney disease, or unspecified chronic kidney disease; N18.9 Chronic kidney disease, unspecified
CPT/HCPCS: 36415; 64450; 71250; 76942; 80053; 93005; 99285; 74176; 84484; 85025; 93010; 99284

== ENCOUNTER 2019-05-02 08:09 | Inpatient (IN) | payer MEDICARE, SELFPAY ==
[2019-05-02] VITALS (38 sets, daily range): BP systolic 49–175; BP diastolic 21–120; PULSE 71–118; RESP 15–31; TEMP 36.2–37; O2SAT 94–99
[2019-05-02 09:12] LABS: Bilirubin Negative (Negative); Blood Trace-intact (Negative); Clarity Sl Cloudy (Clear); Glucose Negative (Negative); Ketones Negative (Negative); Leukocyte Esterase Large (Negative); Nitrite Negative (Negative); Urobilinogen 0.2 EU/dL (Up TO 0.2)
[2019-05-02 09:22] LABS: Epithelial Cells Few HPF (Negative); RBC 0-2 HPF (0-2); WBC >50 HPF (0-5)
[2019-05-02 09:23] LABS: Bacteria Few HPF (Negative); C & S Indicated? Yes; Casts Negative LPF (Negative); Crystals Negative HPF (Negative); Mucus Negative (Negative)
--- NOTE | 2019-05-02 09:30 | DI.CT_ITS ---
EXAM: CT HEAD WO CLINICAL HISTORY: confusion TECHNIQUE: The procedure was performed according to the usual protocol. COMPARISON: CT HEAD WO from 01/11/2019 FINDINGS: Ventricles and sulci are consistent with the patient's age. There are areas of decreased attenuation in the white matter most consistent with small vessel ischemic disease. No acute intracranial hemor rhage, midline shift or mass effect is present. The ventricles are intact. The basilar cisterns are patent. The visualized paranasal sinuses and mastoid air cells are well pneumatized. The calvarium is intact. IMPRESSION: No acute intracranial process. The findings were discussed with the emergency department on the date of the examination.
--- NOTE | 2019-05-02 09:39 | DI.RAD_ITS ---
EXAM: XR CHEST 2V PA LATERAL INDICATION: recent chest trauma. COMPARISON: ABD FLAT UPRIGHT PA CHEST from 07/01/2009 ABD FLAT UPRIGHT PA CHEST from 11/13/2009 TECHNIQUE: 2D digital imaging was performed. FINDINGS: There is poor inspiration. The heart size and pulmonary vasculature are within normal limits. There is atherosclerosis of the thoracic aorta. The lungs are clear. No pleural effusion or pneumothorax is present. There is a hiatal hernia present. Age-appropriate degenerative changes are seen in the spine. IMPRESSION: No acute pulmonary process.
[2019-05-02] MEDS: Normal Saline 1,000 ML 1000 ML IV (09:55)
[2019-05-02] MEDS: Normal Saline Flush 10 ML SYR IVP ×2 (09:59→14:05)
[2019-05-02 10:03] LABS: Abs Immature Grans 0.02 k/cumm (0.0-0.09); Absolute Basophil Count 0.01 k/cumm (0.0-0.2); Absolute Eosinophil Count 0.22 k/cumm (0.0-0.7); Absolute Lymphocyte Count 1.26 k/cumm (1.2-3.4); Absolute Monocyte Count 0.52 k/cumm (0.11-0.7); Absolute Neutrophil Count 4.99 k/cumm (1.2-6.7); Basophils % 0.1; Eosinophils % 3.1; HGB 12.1 g/dL (12.0-15.5); Immature Grans % 0.3; Lymphocytes % 17.9; Mean Corpuscular Hemoglobin 27.3 pg (27.0-33.0); Mean Platelet Volume 8.4 fL (8.0-11.0); Monocytes % 7.4; Neutrophils % 71.2; Platelet Count 419 x1000/uL (130-400); RBC 4.43 m/cumm (4.00-5.20); RBC Distribution Width 14.9 % (11.7-14.6); White Blood Cell Count 7.02 k/cumm (4.4-10.8)
[2019-05-02 10:13] LABS: Lactate 2.4 mmol/L (0.6-1.4)
[2019-05-02 10:56] LABS: Lithium 0.78 mmol/L (0.60-1.20)
[2019-05-02 11:02] LABS: ALT 33 U/L (14-59); AST 28 U/L (15-37); Albumin 3.5 g/dL (3.4-5.0); Alkaline Phosphatase 75 U/L (46-116); Anion Gap 13.1 mmol/L (3-11); BUN 19 mg/dL (7-18); Bilirubin, Total 0.3 mg/dL (0.2-1.0); CO2 21.9 mmol/L (21.0-32.0); CREATININE 1.59 mg/dL (0.55-1.02); Calcium 9.1 mg/dL (8.5-10.1); Chloride 107 mmol/L (98-107); Estimated GFR 31.24 (mL/min/1.73m2); Glucose 117 mg/dL (74-106); Lipase 161 U/L (73-393); Potassium 3.9 mmol/L (3.5-5.1); Sodium 142 mmol/L (136-145); Total Protein 7.5 g/dL (6.4-8.2)
[2019-05-02 11:11] LABS: Troponin I < 0.05 ng/Ml (<0.06)
[2019-05-02] MEDS: cefTRIAXone 1 GM/50 ML BAG IVPB (12:00)
[2019-05-02] MEDS: Normal Saline 1,000 ML 125 ML IV ×2 (14:05→22:13)
[2019-05-02] MEDS: Heparin 5,000 UNITS/ML VIAL 5000 UNITS SC ×2 (14:09→21:41)
[2019-05-02 16:24] LABS: Troponin I < 0.05 ng/Ml (<0.06)
[2019-05-02 16:42] LABS: Lactate 1.6 mmol/L (0.6-1.4)
[2019-05-02] MEDS: Acetaminophen 325 MG TAB PO (16:44)
--- NOTE | 2019-05-02 17:03 | ED.GENADUL_ITS ---
Discharge Plan Discharge Details Chief Complaint: Anxiety Admit Date/Time: 05/02/19 11:37 Admit Provider: Hayley Pinzon Attending Provider: Hayley Pinzon Primary Care Provider: Patricia Goss ED Provider: Elsa Batista Discharge Data Discharge Date/Time-TO BE ENTERED AT DEPARTURE: 05/02/19 13:13 Medical Decision Making This is an 79-year-old patient who presents for what originally was reported as anxiety however sounds like changes in her daily activities and confusion as well as agitation in the evenings. Patient recently sustained a fall 2-1/2 weeks ago resulting in 2 rib fractures on the right. Patient has no new complaints of cough, difficulty breathing shortness of breath or wheezing. Patient does have change in her daily activity including inability to do her daily puzzles in the evening, decreased p.o. intake, increase in urinary incontinence. Patient's medical history and review of systems is somewhat limited as patient's answers are quite vague to most questions and requires redirecting. Patient is alert to person place and time. Patient's daughter at the bedside is somewhat concerned in her change in mental status. Originally seeking a psychiatric evaluation for agitation in the evenings. Patient has been compliant with Ativan which was prescribed a few days ago. Patient's neurologic exam today reveals no focal deficit however patient is slow to respond to commands and questions why test are being performed however again no focal neurologic deficits are noted. Labs ordered as well as head CT to be sure that she has no resulting head injury after fall sustained recently, urinalysis ordered given her urinary incontinence to be sure that there is no sign of infection. Crucible level ordered. Patient's lactate noted to be 2.4. No significant leukocytosis associated. Patient has some worsening renal function. Urinalysis is notable for urinary tract infection and associated to elevated lactate I feel likely this is patient source of infection. Patient's chest x-ray today is unremarkable. Given patient's clinical presentation I recommended admission to the hospital and IV antibiotic for possible urosepsis. Blood cultures are pending. Blood cultures drawn prior to admission antibiotic administration. CXR reveals: NDICATION: recent chest trauma. COMPARISON: ABD FLAT UPRIGHT PA CHEST from 07/01/2009 ABD FLAT UPRIGHT PA CHEST from 11/13/2009 TECHNIQUE: 2D digital imaging was performed. FINDINGS: There is poor inspiration. The heart size and pulmonary vasculature are within normal limits. There is atherosclerosis of the thoracic aorta. The lungs are clear. No pleural effusion or pneumothorax is present. There is a hiatal hernia present. Age-appropriate degenerative changes are seen in the spine. IMPRESSION: No acute pulmonary process. Head Ct reveals: CLINICAL HISTORY: confusion TECHNIQUE: The procedure was performed according to the usual protocol. COMPARISON: CT HEAD WO from 01/11/2019 FINDINGS: Ventricles and sulci are consistent with the patient's age. There are areas of decreased attenuation in the white matter most consistent with small vessel ischemic disease. No acute intracranial hemorrhage, midline shift or mass effect is present. The ventricles are intact. The basilar cisterns are patent. The visualized paranasal sinuses and mastoid air cells are well pneumatized. The calvarium is intact. IMPRESSION: No acute intracranial process. The findings were discussed with the emergency department on the date of the examination. EKG at this time reveals a heart rate of 105, sinus tachycardia with a regular rhythm. Nonspecific ST depressions were noted. No significant change compared to EKG performed on 01/11/2019. This was reviewed with Dr. Marlo Vang Patient and daughter agree with plan of care of admission to the hospital at this time. Spoke with hospitalist who will accept this patient's admission HPI General Date/Time Provider Initiated Documentation: 05/02/19 08:27 . HPI Narrative: This is a 79-year-old patient who presents accompanied by her daughter for increase in reported anxiety in the last several days. Patient is very vague in her history reporting that she is unsure of the majority of her symptoms. Daughter reports that she has had increase in agitation at night has been increasingly confused is clearly not at her baseline. Eating less as well as not performing her normal daily activities including her puzzles which she typically does at night. Patient was recently evaluated in the emergency room after sustaining a fall 2-1/2 weeks ago in which she fell striking her right rib cage. Patient had a CT at the time that reveals 2 acute fractures of the right ribs. Patient reports she has been managing her pain with patches as well as Tylenol. Patient reports patches are causing a rash at the right chest wall and they have discontinued patches today. Patient does report her pain is improving and is significantly less at this time. Patient denies obvious chest pain, difficulty breathing shortness of breath or wheezing. Patient reports baseline abdominal discomfort which is unchanged although she is very vague in her reports. Patient denies nausea, vomiting or diarrhea. Patient does report incontinence of urine which is increased recently however she does typically wear diapers. Patient denies obvious headache or dizziness. Daughter reports patient's gait has been less steady in the last week. Related Data Home Medications Medication Instructions Recorded Confirmed cholecalciferol (vitamin D3) 2,000 unit PO DAILY 09/18/12 05/02/19 [Vitamin D3] multivitamin 1 ea PO DAILY 09/18/12 05/02/19 acetaminophen [Tylenol Extra 500 mg PO Q6H PRN 12/31/13 05/02/19 Strength] aspirin [Aspirin Low-Strength] 81 mg PO DAILY tab.chew 12/11/14 05/02/19 nortriptyline 50 mg PO HS 06/17/15 05/02/19 lithium carbonate 300 mg PO HS 10/31/17 05/02/19 lorazepam 1 mg PO TID tab-cap 10/31/17 05/02/19 quetiapine [Seroquel] 100 mg PO HS 10/31/17 05/02/19 psyllium husk 0.4 gram capsule 0.4 gm PO DAILY #90 cap 06/07/18 04/19/19 amlodipine 5 mg tablet 5 mg PO DAILY #30 tab-cap 11/20/18 05/02/19 folic acid 1 mg tablet 1 mg PO DAILY #30 tab 11/20/18 05/02/19 levothyroxine 50 mcg tablet 50 mcg PO DAILY #30 tab 11/20/18 05/02/19 metoprolol succinate 50 mg 50 mg PO DAILY #30 tab-cap 11/20/18 05/02/19 tablet,extended release 24 hr pantoprazole 40 mg tablet,delayed 40 mg PO DAILY #30 tab 11/20/18 05/02/19 release ondansetron 4 mg PO Q8H PRN #10 tab 12/21/18 05/02/19 meclizine 25 mg tablet 25 mg PO BID PRN #10 tab 01/10/19 05/02/19 lidocaine [Lidoderm] 1 patch TOPICAL Q24H #4 patch 04/19/19 meloxicam 7.5 mg tablet 7.5 mg PO DAILY PRN #30 tab-cap 04/28/19 05/02/19 Previous Rx's Medication Instructions Recorded psyllium husk 0.4 gram capsule 0.4 gm PO DAILY #90 cap 06/07/18 amlodipine 5 mg tablet 5 mg PO DAILY #30 tab-cap 11/20/18 folic acid 1 mg tablet 1 mg PO DAILY #30 tab 11/20/18 levothyroxine 50 mcg tablet 50 mcg PO DAILY #30 tab 11/20/18 metoprolol succinate 50 mg 50 mg PO DAILY #30 tab-cap 11/20/18 tablet,extended release 24 hr pantoprazole 40 mg tablet,delayed 40 mg PO DAILY #30 tab 11/20/18 release ondansetron 4 mg PO Q8H PRN #10 tab 12/21/18 meclizine 25 mg tablet 25 mg PO BID PRN #10 tab 01/10/19 lidocaine [Lidoderm] 1 patch TOPICAL Q24H #4 patch 04/19/19 meloxicam 7.5 mg tablet 7.5 mg PO DAILY PRN #30 tab-cap 04/28/19 Allergies Allergy/AdvReac Type Severity Reaction Status Date / Time fluoxetine Allergy Mild Unverified 04/28/19 10:29 olanzapine Allergy Mild Unverified 04/28/19 10:29 trazodone Allergy Mild Unverified 04/28/19 10:29 haloperidol AdvReac Severe Contraindic Unverified 04/28/19 10:29 ated Phenothiazines AdvReac Severe DYSTONIA Unverified 04/28/19 10:29 General Stated Complaint: Anxiety GRANT: 3 Review of Systems All systems reviewed & are unremarkable except as noted in HPI and below Constitutional Constitutional: Denies chills and Denies fever(s) ENT Ears, Nose, Mouth, and Throat: Denies otalgia, Reports nasal discharge and Denies sore throat Cardiovascular Cardiovascular: Denies dyspnea Respiratory Respiratory: Denies cough and Denies dyspnea Gastrointestinal Gastrointestinal: Denies vomiting Genitourinary Genitourinary: Reports urinary incontinence [facility] Medical History Bipolar 2 disorder (Chronic 01/30/17) Per Dr. 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 HENMT: Head nomocephalic, normal to inspection. Atraumatic. Hearing grossly n ormal. External ear canal no erythema or swelling. TM normal bilaterally. Nose normal to inspection. No rhinnorhea. Normal facial exam. Oral mucosa dry. Tounge normal. Dentition normal. Normal posterior oropharynx. Uvula midline. EYES: General normal appearance. Alignment normal. Eyelids normal. Conjunctiva normal. Sclera normal. PERRL. NECK: Normal visual inspection. FROM. No lymphadenopathy. Trachea midline. No Midline tenderness. CHEST: Normal insepection of the chest. RESP: Normal respiratory effort. Speaking full sentences. No cough. No wheezing. No retractions. Clear to auscaltation. Breath sound equal and present bilaterally. CARDIO: No JVD. Normal PMI. Regular Rate, tachycardic. Regular Rhythm. Normal peripheral pulses. GI: Normal inspection of abdomen. No distension. Soft. Nontender. Bowel sounds present in all 4 quadrants. No rebound. No gaurding. MUSCULOSKELETAL: Normal Gait. FROM of all extremities. Distal neurovascularly intact. Sensation intact distally. No distal edema lower legs SKIN: Normal. Dry. No rashes. NEURO: Alert and awake. Speech clear. Alert and oriented x 3. Speech is clear. Patient is slow in her response to requested tasks however cranial nerves intact as tested III - XI. Normal [id number] test. No pronator drift. Normal heel-hines test. No Nystagmus. Gait normal. Strength intact in all extremities. Sensation intact in all extremities. PSYCH: Normal affect. Cooperative. Course Vital Signs Vital signs: Vital Signs Temperature 36.6 C 05/02/19 08:16 Pulse 118 H 05/02/19 08:16 Respiratory Rate 18 05/02/19 08:16 Blood Pressure 175/120 H 05/02/19 08:16 Pulse Oximetry 99 05/02/19 08:16 Temperature 36.3 C L 05/02/19 16:24 Temperature Source Temporal Artery Scan 05/02/19 16:24 Pulse 92 H 05/02/19 16:24 Pulse 86 05/02/19 13:01 Respiratory Rate 22 05/02/19 16:24 Respiratory Effort 05/02/19 08:16 Respiratory Depth Normal 05/02/19 08:16 Respiratory Pattern Normal 05/02/19 08:16 Blood Pressure 157/88 H 05/02/19 16:24 Blood Pressure Mean 101 05/02/19 13:00 Blood Pressure Position Sitting 05/02/19 08:16 Pulse Oximetry 96 05/02/19 16:24 Oxygen Delivery Method Room Air 05/02/19 16:24 Oxygen Flow Rate 0 05/02/19 16:24 Pain Level 6 05/02/19 16:44 Comment 05/02/19 14:00 Lab/Test Results Lab/Test Results: 05/02/19 09:05 Urine - Reflex from Ua Urine Culture - Pending Laboratory Tests Range/Units 05/02/19 05/02/19 05/02/19 09:05 09:55 09:55 WBC (4.4-10.8) k/cumm RBC (4.00-5.20) m/cumm Hgb (12.0-15.5) g/dL Hct (36.0-46.0) % MCV (80-95) fL MCH (27.0-33.0) pg MCHC (32.0-36.0) g/dL RDW (11.7-14.6) % Plt Count (130-400) x1000/uL MPV (8.0-11.0) fL Immature Gran % Neutrophils % Lymphocytes % Monocytes % Eosinophils % Basophils % Absolute Neutrophils (1.2-6.7) k/cumm Absolute Lymphocytes (1.2-3.4) k/cumm Absolute Monocytes (0.11-0.7) k/cumm Absolute Eosinophils (0.0-0.7) k/cumm Absolute Basophils (0.0-0.2) k/cumm Sodium (136-145) mmol/L 142 Potassium (3.5-5.1) mmol/L 3.9 Chloride (98-107) mmol/L 107 Carbon Dioxide (21.0-32.0) mmol/L 21.9 Anion Gap (3-11) mmol/L 13.1 H BUN (7-18) mg/dL 19 H Creatinine (0.55-1.02) mg/dL 1.59 H Estimated GFR/1.73 m2 (mL/min/1.73m2) 31.24 Glucose (74-106) mg/dL 117 H Lactate (0.6-1.4) mmol/L 2.4 H* Calcium (8.5-10.1) mg/dL 9.1 Total Bilirubin (0.2-1.0) mg/dL 0.3 AST (15-37) U/L 28 ALT (14-59) U/L 33 Alkaline Phosphatase (46-116) U/L 75 Troponin I (<0.06) ng/Ml < 0.05 Total Protein (6.4-8.2) g/dL 7.5 Albumin (3.4-5.0) g/dL 3.5 Lipase (73-393) U/L 161 Urine Color (Yellow) Yellow Urine Clarity (Clear) Sl cloudy Urine pH (5-8) 7.0 Ur Specific [place] (1.005-1.025) 1.010 Urine Protein (Negative) mg/dL Negative Urine Ketones (Negative) mg/dL Negative Urine Blood (Negative) Trace-intact H Urine Nitrite (Negative) Negative Urine Bilirubin (Negative) Negative Urine Urobilinogen (Up TO 0.2) EU/dL 0.2 Ur Leukocyte Esterase (Negative) Large H Urine RBC (0-2) HPF 0-2 Urine WBC (0-5) HPF >50 H Ur Epithelial Cells (Negative) HPF Few Urine Crystals (Negative) HPF Negative Urine Bacteria (Negative) HPF Few Urine Casts (Negative) LPF Negative Urine Mucus (Negative) Negative Urine Other (Negative) Ur Culture Indicated? Yes Urine Glucose (Negative) mg/dL Negative Crucible (0.60-1.20) mmol/L Range/Units 05/02/19 05/02/19 09:55 09:55 WBC (4.4-10.8) k/cumm 7.02 RBC (4.00-5.20) m/cumm 4.43 Hgb (12.0-15.5) g/dL 12.1 Hct (36.0-46.0) % 39.0 MCV (80-95) fL 88.0 MCH (27.0-33.0) pg 27.3 MCHC (32.0-36.0) g/dL 31.0 L RDW (11.7-14.6) % 14.9 H Plt Count (130-400) x1000/uL 419 H MPV (8.0-11.0) fL 8.4 Immature Gran % 0.3 Neutrophils % 71.2 Lymphocytes % 17.9 Monocytes % 7.4 Eosinophils % 3.1 Basophils % 0.1 Absolute Neutrophils (1.2-6.7) k/cumm 4.99 Absolute Lymphocytes (1.2-3.4) k/cumm 1.26 Absolute Monocytes (0.11-0.7) k/cumm 0.52 Absolute Eosinophils (0.0-0.7) k/cumm 0.22 Absolute Basophils (0.0-0.2) k/cumm 0.01 Sodium (136-145) mmol/L Potassium (3.5-5.1) mmol/L Chloride (98-107) mmol/L Carbon Dioxide (21.0-32.0) mmol/L Anion Gap (3-11) mmol/L BUN (7-18) mg/dL Creatinine (0.55-1.02) mg/dL Estimated GFR/1.73 m2 (mL/min/1.73m2) Glucose (74-106) mg/dL Lactate (0.6-1.4) mmol/L Calcium (8.5-10.1) mg/dL Total Bilirubin (0.2-1.0) mg/dL AST (15-37) U/L ALT (14-59) U/L Alkaline Phosphatase (46-116) U/L Troponin I (<0.06) ng/Ml Total Protein (6.4-8.2) g/dL Albumin (3.4-5.0) g/dL Lipase (73-393) U/L Urine Color (Yellow) Urine Clarity (Clear) Urine pH (5-8) Ur Specific [place] (1.005-1.025) Urine Protein (Negative) mg/dL Urine Ketones (Negative) mg/dL Urine Blood (Negative) Urine Nitrite (Negative) Urine Bilirubin (Negative) Urine Urobilinogen (Up TO 0.2) EU/dL Ur Leukocyte Esterase (Negative) Urine RBC (0-2) HPF Urine WBC (0-5) HPF Ur Epithelial Cells (Negative) HPF Urine Crystals (Negative) HPF Urine Bacteria (Negative) HPF Urine Casts (Negative) LPF Urine Mucus (Negative) Urine Other (Negative) Ur Culture Indicated? Urine Glucose (Negative) mg/dL Crucible (0.60-1.20) mmol/L 0.78
--- NOTE | 2019-05-02 19:13 | W.PM.HP.N ---
Date of service: 05/02/19 Time of Service: 19:13 Assessment and Plan Assessment and plan (1) Encephalopathy acute: Status: Acute Assessment and plan: Multifactorial - due to UTI, urinary retention - but also, possible supratherapeutic lithium level for her (her normal levels are closer to 0.4-0.6). Will hold lithium dose tonight. Hydrate aggressively. Treat UTI. Will place a batista catheter. Check TSH. If mental status does not normalize with these measures within the next 48 hours, we do have to wonder about this being a presentation of her psychiatric disorder rather than acute delirium. (2) UTI (urinary tract infection): Status: Acute Assessment and plan: As above - started on empiric ceftriaxone. Blood and urine cultures collected. In June of 2017, she had a pansensitive E.Coli. (3) Urinary retention with incomplete bladder emptying: Status: Acute Assessment and plan: Will offer a batista catheter today. I am afraid the patient might pull it out, so she might need a sitter. Might be contributing to both UTI and encephalopathy. Needs a steady bowel regimen as well. (4) Dehydration: Status: Acute Assessment and plan: Hydrate intravenously (5) Acute kidney injury superimposed on chronic kidney disease: Status: Acute Assessment and plan: Hydrate intravenously; treat urinary retention with a batista catheter; monitor I/O's and daily weights. (6) Bipolar 2 disorder: Status: Chronic Assessment and plan: Hold lithium tonight and recheck level in am - target level between 0.4-0.6. Encephalopathy could be due to slight lithium toxicity. Continue seroquel, lorazepam, nortriptyline (7) Essential hypertension: Status: Chronic Assessment and plan: Continue amlodipine and metoprolol. (8) DVT prophylaxis: Status: Acute Assessment and plan: heparin SC (9) Discharge planning issues: Status: Acute Assessment and plan: Full code History of Present Illness History of Present Illness Chief Complaint: agitation/anxiety Narrative: Ms Orosco is an 79 year old female with PMHx of Bipolar 2 disorder with severe depressive episodes, previously requiring ECT, on lithium, as well as mild tardive dyskinesia, h/o DVT, no longer on anticoagulation, HTN, hyperlipidemia, who for the last few days, but especially so for the last 2 days, had been more anxious, agitated, and sometimes aggressive at home. She was brought in to the ED because her daughter is fearful that the patient is about to become depressed again. She describes behaviors at home where the patient would be rocking in place, anxious. When family members (daughter or ) would try to help her go to the bathroom, she would pinch them, scratch them or hit them. She stopped doing her regular crossword puzzles at home. She hasn't been eating and drinking as much. In the ED, she was found to have a UTI and was initiated on rocephin. Her CT head was negative (2 weeks ago she fell and broke 2 ribs; no falls reported since). Her lithium level was 0.78 (normally it is close to 0.4-0.6). When I came to examine the patient and asked her how she was doing, she said I need to go to the bathroom and I can't. Her bladder scan revealed >800 cc. Batista catheter is ordered. Review of Systems Narrative: 12 systems attempted to be reviewed. Patient is inattentive, denies pain, but not answering most of my questions. Her daughter fills in that her last BM may or may not have been last night. [facility] Medical History Bipolar 2 disorder (Chronic 01/30/17) Per Dr. Heath, with severe treatment resistant dpressive phases vs treatment resistant depression 01/25/17 RH CKD (chronic kidney disease) Deep vein thrombosis (Resolved 12/08/13) ECT for depression, [facility] GERD (gastroesophageal reflux disease) (Chronic) HLD (hyperlipidemia) HTN (hypertension) Hypothyroidism (Chronic 11/11/12) Tardive dyskinesia (Chronic 04/17/16) Dr. 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 Family History (Updated 05/02/19 @ 19:30 by Hayley Pinzon MD) Brother Heart disease Stroke Brother Heart disease Other Hypertension Social History Smoking/Tobacco Use Status: Never Alcohol Intake: former Drug use: Never Substance use type: does not use Number of Children: 2 Pets and animals: Yes Pets and animals: cat(s) Current gender identity: female What type of physical activity do you participate in: walking Frequency: daily Seatbelt use: always Do you feel safe at home: Yes Do you feel safe in your relationship?: Yes Meds Home Medications and Allergies Home Medications Medication Instructions Recorded Confirmed Type cholecalciferol (vitamin D3) 2,000 unit PO DAILY 09/18/12 05/02/19 History [Vitamin D3] multivitamin 1 ea PO DAILY 09/18/12 05/02/19 History acetaminophen [Tylenol Extra 500 mg PO Q6H PRN 12/31/13 05/02/19 History Strength] aspirin [Aspirin Low-Strength] 81 mg PO DAILY tab.chew 12/11/14 05/02/19 History nortriptyline 50 mg PO HS 06/17/15 05/02/19 History lithium carbonate 300 mg PO HS 10/31/17 05/02/19 History lorazepam 1 mg PO TID tab-cap 10/31/17 05/02/19 History quetiapine [Seroquel] 100 mg PO HS 10/31/17 05/02/19 History amlodipine 5 mg tablet 5 mg PO DAILY #30 tab-cap 11/20/18 05/02/19 Rx folic acid 1 mg tablet 1 mg PO DAILY #30 tab 11/20/18 05/02/19 Rx levothyroxine 50 mcg tablet 50 mcg PO DAILY #30 tab 11/20/18 05/02/19 Rx metoprolol succinate 50 mg 50 mg PO DAILY #30 tab-cap 11/20/18 05/02/19 Rx tablet,extended release 24 hr pantoprazole 40 mg tablet,delayed 40 mg PO DAILY #30 tab 11/20/18 05/02/19 Rx release ondansetron 4 mg PO Q8H PRN #10 tab 12/21/18 05/02/19 Rx meclizine 25 mg tablet 25 mg PO BID PRN #10 tab 01/10/19 05/02/19 Rx meloxicam 7.5 mg tablet 7.5 mg PO DAILY PRN #30 tab-cap 04/28/19 05/02/19 Rx Allergies Allergy/AdvReac Type Severity Reaction Status Date / Time fluoxetine Allergy Mild Unverified 04/28/19 10:29 olanzapine Allergy Mild Unverified 04/28/19 10:29 trazodone Allergy Mild Unverified 04/28/19 10:29 haloperidol AdvReac Severe Contraindic Unverified 04/28/19 10:29 ated Phenothiazines AdvReac Severe DYSTONIA Unverified 04/28/19 10:29 Exam Narrative Exam Narrative: General: Very anxious elderly female, A&Ox3 (difficulty with the date), restless and rocking in the chair Neurological: A&ox3, no focal deficits, restless Psychiatric: anxious, restless, fearful affect Skin: Visible skin intact HEENT: Atraumatic, normocephalic, EOMI, dry MM, clear oropharynx, no submandibular or cervical lymphadenopathy, no goiter or JVD Cardiovascular: RRR, tachycardic, ?quiet CALVIN Lungs: CTAB Gastrointestinal: abdomen soft, full, nontender Genitourinary: bladder scan >800 cc Extremities: no e/c/c BLE's Results Imaging Additional studies: CT head: No acute intracranial process. CXR: No acute pulmonary process. EKG: Sinus tach, HR 105, nonspecific ST changes, but no acute ischemia Labs Result diagrams: 05/02/19 09:55 05/02/19 09:55 Labs: Laboratory Results - last 24 hr 05/02/19 05/02/19 05/02/19 09:05 09:55 09:55 WBC RBC Hgb Hct MCV MCH MCHC RDW Plt Count MPV Immature Gran % Neutrophils % Lymphocytes % Monocytes % Eosinophils % Basophils % Absolute Neutrophils Absolute Lymphocytes Absolute Monocytes Absolute Eosinophils Absolute Basophils Sodium 142 Potassium 3.9 Chloride 107 Carbon Dioxide 21.9 Anion Gap 13.1 H BUN 19 H Creatinine 1.59 H Estimated GFR/1.73 m2 31.24 Glucose 117 H Lactate 2.4 H* Calcium 9.1 Total Bilirubin 0.3 AST 28 ALT 33 Alkaline Phosphatase 75 Troponin I < 0.05 Total Protein 7.5 Albumin 3.5 Lipase 161 Urine Color Yellow Urine Clarity Sl cloudy Urine pH 7.0 Ur Specific [place] 1.010 Urine Protein Negative Urine Ketones Negative Urine Blood Trace-intact H Urine Nitrite Negative Urine Bilirubin Negative Urine Urobilinogen 0.2 Ur Leukocyte Esterase Large H Urine RBC 0-2 Urine WBC >50 H Ur Epithelial Cells Few Urine Crystals Negative Urine Bacteria Few Urine Casts Negative Urine Mucus Negative Urine Other Ur Culture Indicated? Yes Urine Glucose Negative [place] 05/02/19 05/02/19 05/02/19 09:55 09:55 11:40 WBC 7.02 RBC 4.43 Hgb 12.1 Hct 39.0 MCV 88.0 MCH 27.3 MCHC 31.0 L RDW 14.9 H Plt Count 419 H MPV 8.4 Immature Gran % 0.3 Neutrophils % 71.2 Lymphocytes % 17.9 Monocytes % 7.4 Eosinophils % 3.1 Basophils % 0.1 Absolute Neutrophils 4.99 Absolute Lymphocytes 1.26 Absolute Monocytes 0.52 Absolute Eosinophils 0.22 Absolute Basophils 0.01 Sodium Potassium Chloride Carbon Dioxide Anion Gap BUN Creatinine Estimated GFR/1.73 m2 Glucose Lactate Calcium Total Bilirubin AST ALT Alkaline Phosphatase Troponin I < 0.05 Total Protein Albumin Lipase Urine Color Urine Clarity Urine pH Ur Specific [place] Urine Protein Urine Ketones Urine Blood Urine Nitrite Urine Bilirubin Urine Urobilinogen Ur Leukocyte Esterase Urine RBC Urine WBC Ur Epithelial Cells Urine Crystals Urine Bacteria Urine Casts Urine Mucus Urine Other Ur Culture Indicated? Urine Glucose [place] 0.78 05/02/19 16:35 WBC RBC Hgb Hct MCV MCH MCHC RDW Plt Count MPV Immature Gran % Neutrophils % Lymphocytes % Monocytes % Eosinophils % Basophils % Absolute Neutrophils Absolute Lymphocytes Absolute Monocytes Absolute Eosinophils Absolute Basophils Sodium Potassium Chloride Carbon Dioxide Anion Gap BUN Creatinine Estimated GFR/1.73 m2 Glucose Lactate 1.6 H Calcium Total Bilirubin AST ALT Alkaline Phosphatase Troponin I Total Protein Albumin Lipase Urine Color Urine Clarity Urine pH Ur Specific [place] Urine Protein Urine Ketones Urine Blood Urine Nitrite Urine Bilirubin Urine Urobilinogen Ur Leukocyte Esterase Urine RBC Urine WBC Ur Epithelial Cells Urine Crystals Urine Bacteria Urine Casts Urine Mucus Urine Other Ur Culture Indicated? Urine Glucose [place] Last Vital Signs Temp 36.3 C L 05/02/19 16:24 Pulse 92 H 05/02/19 16:24 Resp 22 05/02/19 16:24 BP 157/88 H 05/02/19 16:24 Pulse Ox 96 05/02/19 16:24
[2019-05-02] MEDS: LORazepam 0.5 MG TAB 1 MG PO (20:19)
[2019-05-02] MEDS: QUEtiapine 100 MG TAB PO (21:40)
[2019-05-03 03:45] VITALS: BP 143/84; PULSE 79; RESP 16; TEMP 36.3; O2SAT 96
[2019-05-03] MEDS: Normal Saline 1,000 ML 125 ML IV (06:15)
[2019-05-03] MEDS: Heparin 5,000 UNITS/ML VIAL 5000 UNITS SC ×2 (06:16→14:01)
[2019-05-03] MEDS: Levothyroxine 50 MCG TAB PO (06:16)
[2019-05-03 07:31] LABS: Abs Immature Grans 0.01 k/cumm (0.0-0.09); Absolute Basophil Count 0.02 k/cumm (0.0-0.2); Absolute Eosinophil Count 0.23 k/cumm (0.0-0.7); Absolute Lymphocyte Count 1.49 k/cumm (1.2-3.4); Absolute Monocyte Count 0.32 k/cumm (0.11-0.7); Absolute Neutrophil Count 2.81 k/cumm (1.2-6.7); Basophils % 0.4; Eosinophils % 4.7; HCT 35.7 % (36.0-46.0); Immature Grans % 0.2; Lymphocytes % 30.5; Mean Corp. HGB Concentration 30.8 g/dL (32.0-36.0); Mean Corpuscular Hemoglobin 27.6 pg (27.0-33.0); Mean Corpuscular Volume 89.5 fL (80-95); Mean Platelet Volume 8.3 fL (8.0-11.0); Monocytes % 6.6; Neutrophils % 57.6; Platelet Count 338 x1000/uL (130-400); RBC 3.99 m/cumm (4.00-5.20); RBC Distribution Width 15.2 % (11.7-14.6); White Blood Cell Count 4.88 k/cumm (4.4-10.8)
[2019-05-03 07:35] LABS: Lactate 0.7 mmol/L (0.6-1.4)
[2019-05-03 07:40] VITALS: BP 137/74; PULSE 58; RESP 18; TEMP 36.4; O2SAT 98
[2019-05-03 07:58] LABS: Anion Gap 7.9 mmol/L (3-11); BUN 12 mg/dL (7-18); CO2 25.1 mmol/L (21.0-32.0); CREATININE 1.07 mg/dL (0.55-1.02); Calcium 8.3 mg/dL (8.5-10.1); Chloride 113 mmol/L (98-107); Estimated GFR 49.34 (mL/min/1.73m2); Glucose 101 mg/dL (74-106); Magnesium 2.2 mg/dL (1.8-2.4); Potassium 3.5 mmol/L (3.5-5.1); Sodium 146 mmol/L (136-145); TSH 1.66 uIU/mL (0.36-3.74)
[2019-05-03 08:08] LABS: Lithium 0.36 mmol/L (0.60-1.20)
[2019-05-03] MEDS: Pantoprazole 40 MG TABCR PO (08:59)
[2019-05-03] MEDS: Psyllium PKT 1 EACH PO (08:59)
[2019-05-03] MEDS: Cholecalciferol (Vitamin D3) 1,000 UNIT TAB 2000 UNITS PO (08:59)
[2019-05-03] MEDS: Folic Acid 1 MG TAB PO (09:00)
[2019-05-03] MEDS: Metoprolol CR 50 MG TABCR PO (09:00)
[2019-05-03] MEDS: amLODIPine 5 MG TAB PO (09:00)
[2019-05-03] MEDS: Multivitamin TAB 1 TAB PO (09:00)
[2019-05-03] MEDS: Aspirin 81 MG CHEW PO (09:00)
[2019-05-03] MEDS: LORazepam 0.5 MG TAB 1 MG PO ×2 (09:01→14:00)
[2019-05-03 11:53] VITALS: BP 162/91; PULSE 84; RESP 20; TEMP 36.7; O2SAT 97
--- NOTE | 2019-05-03 11:54 | IN_ITS ---
Date of service: 05/03/19 Time of Service: 09:00 PT Notes Inpatient Physical Therapy Evaluation Date: [] Referring Doctor: Dr. Hayley Pinzon PT Orders: PT CONSULT: Evaluate and treat: Limited ability Precautions: Fall precautions Patient Profile/Admitting Diagnosis: Patient is an 79-year-old female admitted May 02, 2019 after coming into the ER secondary to concerns from her family members with anxiety/confusion. Was found to be diagnosed with a UTI. Patient was recently seen at an [facility] emergency room on 19 April secondary to a fall onto a stove fracturing ribs 8 and 9 on the right. She was discharged to home after that ER visit. Patient's family indicated more confusion as of late and lack of interest with activities she enjoyed such as working on her puzzles in the evening. Also lack of appetite. PMHX: Medical History Bipolar 2 disorder (Chronic 01/30/17) Per Dr. Heath, with severe treatment resistant dpressive phases vs treatment resistant depression 01/25/17 [facility] CKD (chronic kidney disease) Deep vein thrombosis (Resolved 12/08/13) ECT for depression, [facility] GERD (gastroesophageal reflux disease) (Chronic) HLD (hyperlipidemia) HTN (hypertension) Hypothyroidism (Chronic 11/11/12) Tardive dyskinesia (Chronic 04/17/16) Dr. 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 Social History/Home Situation: Patient states she lives in a home with her and her daughter often checks on her. She has 3 steps entering the home. Baseline mobility was no use of an assistive device at home. Current Functional Limitations: Ambulation, functional mobility Equipment Owned/DME: None Subjective: Patient states that she is not interested in receiving physical therapy at this time. Following some discussion she is agreeable to consult. Poor historian. Seems somewhat confused and anxious. Evidence of tardive dyskinesia during today's evaluation. Denies any significant pain other than some mild discomfort in the right thoracic region in the area of her rib fractures. Objective: General Observation: IV in right antecubital fossa, catheter, bilateral lower extremity compression garments. Mental Status: Patient is awake upon start of initial evaluation. Is aware of person and place however not time. Pain: Mild complaints of thoracic pain on the right 3/10. ROM: Right Upper Extremity: Within functional limits Left Upper Extremity: Within functional limits Right Lower Extremity: Within functional limits Left Lower Extremity: Within functional limits Strength: Right Upper Extremity: 4/5 throughout Left Upper Extremity: 4/5 throughout Right Lower Extremity: 4-/5 throughout Left Lower Extremity: 4-/5 throughout Sensation: Intact sensation light touch throughout bilateral lower extremities Bed Mobility/Transfers: Supine to sit: Min assist x1 with head of bed at 40 degrees. Sit to stand: Contact-guard with gait belt Stand to sit: Contact-guard with gait belt Bed mobility: Min assist repositioning superiorly in the bed. Gait: 10 feet x 2 with contact-guard and front wheeled walker. Balance: Static Sitting: Good Dynamic Sitting: Good Static Standing: Fair Dynamic Standing: Fair Special Tests: Mobility Limitations Standardized Measure [facility] 6 clicks Basic Mobility Inpatient Short Form: Raw Score: 18 standardized Score: 43 0.63 CMS Score: 46.58% CMS Modifier: CK Informed Consent/Education: Patient instructed in purpose of PT consult and plan of care. Assessment: Patient is a 79 year old female referred to physical therapy services with the diagnosis of UTI, anxiety. Patient presents with clinical signs and symptoms consistent with medical diagnosis, as demonstrated by the following impairment level findings: Motor control, strength. Impairments are contributing to the following functional limitations: Bed mobility, ambulation, transfers. [facility] score 46.58%. Given her history of falls in the past, recommend assistive device a front wheel walker for ambulation purposes for safety reasons. Patient is assessed as a Moderate 91578 3 complexity based on the following: History: See above Examination: See above Presentation: Evolving Decision Making: AM-PAC 46.58% Goals: Goals X1 week 1. Supine-Sit: standby assist 2. Sit-Supine: Standby assist 3. Sit-Stand: Standby assist to a front wheel walker 4. Stand-Sit: Standby assist from a front wheeled walker 5. Bed-Chair: Standby assist with front wheeled walker 6. Chair-Bed: Standby assist with front wheeled walker 7. Gait greater than or equal to 150 feet with standby assist and front wheeled walker 8. Stairs standby assist with negotiation of 3 stairs with railing Plan of Care/Treatment Plan: 1-2x/day, 7 days/week x 1 week. Plan of care has been reviewed with the [employer] providing the service under Physical Therapy direction. Initiate Physical Therapy intervention for strengthening, bed mobility, transfers, gait, stairs, balance training, use of assistive device. DISCHARGE RECOMMENDATIONS: Home health PT for further strengthening and functional mobility training as well as gait training with front wheeled walker TREATMENT CODE/TIME: 07741: 30 minutes direct one-on-one care 9:00 to 930. Disclaimer: This note was created using PostPath voice recognition software. It was reviewed for major content. However, there may be multiple small discrepancies and errors due to the voice recognition aspects of the software. Reji Ferris PT, DPT
[2019-05-03] MEDS: cefTRIAXone 1 GM/50 ML BAG IVPB (12:36)
--- NOTE | 2019-05-03 12:38 | PHARADMIT ---
Admission Pharmacy Clinical Review Encephalopathy Code Status Full Code Current Weight Wgt-72.1 kg Renally Cleared and Narrow Therapeutic Index Meds CrCl~ 30 mL/min Meds-OK QTc Value / Action Taken QTc-473 (Protonix, Seroquel, Nortripytyline BP Control, Fever BP-162/91 Tmax- 36.7C Electrolytes reviewed Na-146 K+3.5 Mag-2.2 DVT Prophylaxis Heparin SC Opiate Usage / Scheduled Bowel Regimen Ordered No No Plt/SCr for Heparin / Enoxaparin Plts-338 SCr-1.07 INR for Warfarin na H/H stable, WBC/Bands H&H- 11.0/35.7 WBC- 4.88 Antibiotic appropriateness Rocephin, Cultures and Sensitivities Urine-strep, Blood-pending Surgical ABX d/c within 24 hr na DM control / Insulin Dosing BG-101 Heart Failure (Check EF%) (JOSE's, B-Block, Diuretics) Norvasc, Toprol-XL, IV to PO Switch No Home Meds Reviewed Yes Home Meds Not Ordered Meclizine, Comments [place] level low 0.36 (0.6-1.2)
--- NOTE | 2019-05-03 15:36 | PGE_ITS ---
Date of Service Date of service: 05/03/19 Time of Service: 15:36 Assessment and Plan Assessment and plan (1) Encephalopathy acute: Start date: 05/03/19 Start time: 15:38 Status: Acute Assessment and plan: Resolved back to baseline. UTI with urine culture growing strep b 10-50,000 colonies, on ceftriaxone. Anxious lady. [place] resumed, level 0.36 today Blood cultures no growth to date lactate 0.7 TSH normal range. (2) UTI (urinary tract infection): Start date: 05/03/19 Start time: 15:39 Status: Acute Assessment and plan: As above - started on empiric ceftriaxone. (3) Urinary retention with incomplete bladder emptying: Start date: 05/03/19 Start time: 15:40 Status: Acute Assessment and plan: Catheter insertion. Will d/c tomorrow with PVR for 24 hours to monitor retention (4) Dehydration: Start date: 05/03/19 Start time: 15:41 Status: Acute Assessment and plan: Resolved. MMM, Creatinine 1.07, does not appear dry (5) Acute kidney injury superimposed on chronic kidney disease: Start date: 05/03/19 Start time: 15:41 Status: Acute Assessment and plan: improved. Creatinine today 1.07 appears baseline approx 1.29-1.33, upon admission 1.59. Continue to monitor. D/C fluids. Taking oral hydration. (6) Bipolar 2 disorder: Start date: 05/03/19 Start time: 15:43 Status: Chronic Assessment and plan: lithium level 0.36, resume lithium Continue seroquel, lorazepam, nortriptyline (7) Essential hypertension: Start date: 05/03/19 Start time: 15:43 Status: Chronic Assessment and plan: Continue amlodipine and metoprolol. (8) DVT prophylaxis: Start date: 05/03/19 Start time: 15:43 Status: Acute Assessment and plan: heparin SC (9) Discharge planning issues: Start date: 05/03/19 Start time: 15:44 Status: Acute Assessment and plan: Full code Subjective Subjective Patient reports: other Interval history since last seen: Anxious, but feeling better, wants to go home. AAOx3. Denies CP, SOB, N/V/D Exam Narrative Exam Narrative: General: Very anxious elderly female, A&Ox3, anxious and rocking in the chair Neurological: A&ox3, no focal deficits, restless Psychiatric: anxious, restless, fearful affect Skin: Visible skin intact HEENT: Atraumatic, normocephalic, EOMI, MMM, clear oropharynx, no submandibular or cervical lymphadenopathy, no goiter or JVD Cardiovascular: RRR, tachycardic, ?quiet [place] Lungs: CTAB Gastrointestinal: abdomen soft, full, nontender Genitourinary: catheter with clear yellow urine Extremities: no e/c/c BLE's Objective Objective Clinical Data: Abnormal lab results 05/02/19 05/03/19 05/03/19 Range/Units 16:35 07:15 07:15 RBC (4.00-5.20) m/cumm Hgb (12.0-15.5) g/dL Hct (36.0-46.0) % MCHC (32.0-36.0) g/dL RDW (11.7-14.6) % Sodium 146 H (136-145) mmol/L Chloride 113 H (98-107) mmol/L Creatinine 1.07 H D (0.55-1.02) mg/dL Lactate 1.6 H (0.6-1.4) mmol/L Calcium 8.3 L (8.5-10.1) mg/dL [place] 0.36 L (0.60-1.20) mmol/L 05/03/19 Range/Units 07:15 RBC 3.99 L (4.00-5.20) m/cumm Hgb 11.0 L (12.0-15.5) g/dL Hct 35.7 L (36.0-46.0) % MCHC 30.8 L (32.0-36.0) g/dL RDW 15.2 H (11.7-14.6) % Sodium (136-145) mmol/L Chloride (98-107) mmol/L Creatinine (0.55-1.02) mg/dL Lactate (0.6-1.4) mmol/L Calcium (8.5-10.1) mg/dL [place] (0.60-1.20) mmol/L Vital Signs Temperature 36.7 C 05/03/19 11:53 Temperature Source Temporal Artery Scan 05/03/19 11:53 Pulse 84 05/03/19 11:53 Pulse Rhythm Regular 05/03/19 03:45 Pulse 86 05/02/19 13:01 Respiratory Rate 20 05/03/19 11:53 Respiratory Effort 05/03/19 03:45 Respiratory Depth Shallow 05/03/19 03:45 Respiratory Pattern Normal 05/03/19 03:45 Blood Pressure 162/91 H 05/03/19 11:53 Blood Pressure Mean 101 05/02/19 13:00 Blood Pressure Position Sitting 05/02/19 08:16 Pulse Oximetry 97 05/03/19 11:53 Oxygen Delivery Method Room Air 05/03/19 11:53 Oxygen Flow Rate 0 05/03/19 11:53 Pain Level 5 05/03/19 11:53 Comment 05/02/19 19:53 Intake & Output 05/02/19 05/03/19 05/03/19 23:59 11:59 23:59 Intake Total 2760 / 2760 2057.917 / 2597.917 540 / 2597.917 Output Total 1100 / 1100 3200 / 3200 Balance 1660 / 1660 -1142.083 / -602.083 540 / -602.083 Weight 72.121 kg Intake: IV 2060 / 2060 1347.917 / 1347.917 Oral 700 / 700 710 / 1250 540 / 1250 Output: Urine 1100 / 1100 3200 / 3200 Other: Urine Color Pale Pale Yellow Yellow Straw Urine Appearance Clear Clear Urine Odor Normal Comment very strong smelling Voiding Methods Bedside Commode Laboratory Results WBC 4.88 k/cumm (4.4-10.8) D 05/03/19 07:15 RBC 3.99 m/cumm (4.00-5.20) L 05/03/19 07:15 Hgb 11.0 g/dL (12.0-15.5) L 05/03/19 07:15 Hct 35.7 % (36.0-46.0) L 05/03/19 07:15 MCV 89.5 fL (80-95) 05/03/19 07:15 MCH 27.6 pg (27.0-33.0) 05/03/19 07:15 MCHC 30.8 g/dL (32.0-36.0) L 05/03/19 07:15 RDW 15.2 % (11.7-14.6) H 05/03/19 07:15 Plt Count 338 x1000/uL (130-400) 05/03/19 07:15 MPV 8.3 fL (8.0-11.0) 05/03/19 07:15 Immature Gran % 0.2 05/03/19 07:15 Neutrophils % 57.6 05/03/19 07:15 Lymphocytes % 30.5 05/03/19 07:15 Monocytes % 6.6 05/03/19 07:15 Eosinophils % 4.7 05/03/19 07:15 Basophils % 0.4 05/03/19 07:15 Absolute Neutrophils 2.81 k/cumm (1.2-6.7) 05/03/19 07:15 Absolute Lymphocytes 1.49 k/cumm (1.2-3.4) 05/03/19 07:15 Absolute Monocytes 0.32 k/cumm (0.11-0.7) 05/03/19 07:15 Absolute Eosinophils 0.23 k/cumm (0.0-0.7) 05/03/19 07:15 Absolute Basophils 0.02 k/cumm (0.0-0.2) 05/03/19 07:15 Sodium 146 mmol/L (136-145) H 05/03/19 07:15 Potassium 3.5 mmol/L (3.5-5.1) 05/03/19 07:15 Chloride 113 mmol/L (98-107) H 05/03/19 07:15 Carbon Dioxide 25.1 mmol/L (21.0-32.0) 05/03/19 07:15 Anion Gap 7.9 mmol/L (3-11) 05/03/19 07:15 BUN 12 mg/dL (7-18) D 05/03/19 07:15 Creatinine 1.07 mg/dL (0.55-1.02) H D 05/03/19 07:15 Estimated GFR/1.73 m2 49.34 (mL/min/1.73m2) 05/03/19 07:15 Glucose 101 mg/dL (74-106) 05/03/19 07:15 Lactate 0.7 mmol/L (0.6-1.4) 05/03/19 07:15 Calcium 8.3 mg/dL (8.5-10.1) L 05/03/19 07:15 Magnesium 2.2 mg/dL (1.8-2.4) 05/03/19 07:15 Total Bilirubin 0.3 mg/dL (0.2-1.0) 05/02/19 09:55 AST 28 U/L (15-37) 12 09:55 ALT 33 U/L (14-59) 05/02/19 09:55 Alkaline Phosphatase 75 U/L (46-116) 05/02/19 09:55 Troponin I < 0.05 ng/Ml (<0.06) 05/02/19 11:40 Total Protein 7.5 g/dL (6.4-8.2) 05/02/19 09:55 Albumin 3.5 g/dL (3.4-5.0) 05/02/19 09:55 Lipase 161 U/L (73-393) 05/02/19 09:55 TSH 1.66 uIU/mL (0.36-3.74) 05/03/19 07:15 Urine Color Yellow (Yellow) 05/02/19 09:05 Urine Clarity Sl cloudy (Clear) 05/02/19 09:05 Urine pH 7.0 (5-8) 05/02/19 09:05 Ur Specific [place] 1.010 (1.005-1.025) 05/02/19 09:05 Urine Protein Negative mg/dL (Negative) 05/02/19 09:05 Urine Ketones Negative mg/dL (Negative) 05/02/19 09:05 Urine Blood Trace-intact (Negative) H 05/02/19 09:05 Urine Nitrite Negative (Negative) 05/02/19 09:05 Urine Bilirubin Negative (Negative) 05/02/19 09:05 Urine Urobilinogen 0.2 EU/dL (Up TO 0.2) 05/02/19 09:05 Ur Leukocyte Esterase Large (Negative) H 05/02/19 09:05 Urine RBC 0-2 HPF (0-2) 05/02/19 09:05 Urine WBC >50 HPF (0-5) H 05/02/19 09:05 Ur Epithelial Cells Few HPF (Negative) 05/02/19 09:05 Urine Crystals Negative HPF (Negative) 05/02/19 09:05 Urine Bacteria Few HPF (Negative) 05/02/19 09:05 Urine Casts Negative LPF (Negative) 05/02/19 09:05 Urine Mucus Negative (Negative) 05/02/19 09:05 Urine Other (Negative) 05/02/19 09:05 Ur Culture Indicated? Yes 05/02/19 09:05 Urine Glucose Negative mg/dL (Negative) 05/02/19 09:05 [place] 0.36 mmol/L (0.60-1.20) L 05/03/19 07:15
[2019-05-03 15:42] VITALS: BP 172/99; PULSE 101; RESP 22; TEMP 36.5; O2SAT 99
--- NOTE | 2019-05-03 17:57 | INITIAL_ITS ---
- If Service Date Differs Date of service: 05/03/19 Time of Service: 17:57 Care Management Initial Assess REASON FOR HOSPITALIZATION:: Toxic metabolic encephalopathy PAST MEDICAL HISTORY/PAST SURGICAL HISTORY:: Medical History: Bipolar 2 disorder (Chronic 01/30/17) - Per Dr. 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 Dr. Esther Heath - Dose reductions in the past have led to severe relapse of psychotic depression. No surgical history of record. PREVIOUS FUNCTIONAL STATUS/SOCIAL/FAMILY SUPPORTS:: Stacy resides in [facility] with her , Llaito. The couple has two adult children who live locally and are sources of support for Stacy and her . At the daughter's report, Stacy is independent with her ADLs at baseline. Her does the grocery shopping and cooking at home and drives Stacy to appointments. Stacy helps clean the house and enjoys doing word searching and reading. CURRENT FUNCTIONAL STATUS:: Stacy is sitting in a chair when CM comes to meet with her. Her daughter, Lluvia, is present in the room. Stacy is visibly anxious and minimally engages in conversation. Lluvia answers most questions asked by CM. ADVANCE DIRECTIVES:: On file at [facility]; Poncho Orosco is agent and daughter Lluvia Briceno is alternate agent. Has patient been provided with information about the portal?: Yes Did the patient sign up for the portal?: No (Pt is not interested) CODE STATUS:: Full Code INSURANCE COVERAGE / FINANCIAL ISSUES:: [employer] and Medicare CURRENT HOME/COMMUNITY SERVICES/EQUIPMENT:: Patient sees Marita Monsalve aprn, at [facility]. Patient has no other community services or DME per her daughter. PRIMARY CARE PHYSICIAN:: Patricia Goss aprn ([facility]) POTENTIAL DISCHARGE NEEDS:: Follow-up appointment with PCP, [facility], and plan of care. PATIENT/FAMILY EDUCATION NEEDS:: Discharge plan, limitations, follow-up plan, including Ask Me Three and self-management. ANTICIPATED BARRIERS TO DISCHARGE:: None. TRANSPORTATION:: Via private vehicle by family member when ready. PLAN:: Stacy will be discharged home when medically cleared by provider. Anticipate no additional services needed at time of discharge. Family members will transport Stacy home via private vehicle upon discharge.
[2019-05-03] MEDS: Normal Saline Flush 10 ML SYR IVP (22:21)
[2019-05-03] MEDS: LORazepam 2 MG/ML VIAL 0.5 MG IVP (22:21)
[2019-05-04 06:50] VITALS: TEMP 37.3
[2019-05-04 09:01] LABS: Abs Immature Grans 0.03 k/cumm (0.0-0.09); Absolute Basophil Count 0.01 k/cumm (0.0-0.2); Absolute Lymphocyte Count 1.25 k/cumm (1.2-3.4); Absolute Monocyte Count 0.58 k/cumm (0.11-0.7); Absolute Neutrophil Count 10.97 k/cumm (1.2-6.7); Basophils % 0.1; Eosinophils % 0.2; HCT 38.1 % (36.0-46.0); Immature Grans % 0.2; Lymphocytes % 9.7; Mean Corp. HGB Concentration 31.5 g/dL (32.0-36.0); Mean Corpuscular Hemoglobin 27.6 pg (27.0-33.0); Mean Corpuscular Volume 87.8 fL (80-95); Mean Platelet Volume 8.3 fL (8.0-11.0); Monocytes % 4.5; Neutrophils % 85.3; Platelet Count 376 x1000/uL (130-400); RBC 4.34 m/cumm (4.00-5.20); RBC Distribution Width 14.9 % (11.7-14.6); White Blood Cell Count 12.86 k/cumm (4.4-10.8)
[2019-05-04 09:08] LABS: Anion Gap 12.2 mmol/L (3-11); BUN 11 mg/dL (7-18); CO2 23.8 mmol/L (21.0-32.0); CREATININE 0.93 mg/dL (0.55-1.02); Calcium 9.1 mg/dL (8.5-10.1); Chloride 108 mmol/L (98-107); Estimated GFR 58.01 (mL/min/1.73m2); Glucose 130 mg/dL (74-106); Potassium 3.6 mmol/L (3.5-5.1); Sodium 144 mmol/L (136-145)
[2019-05-04 09:13] LABS: Absolute Eosinophil Count 0.03 k/cumm (0.0-0.7)
[2019-05-04 10:50] VITALS: PULSE 112; RESP 24; TEMP 36.7; O2SAT 97
--- NOTE | 2019-05-04 12:21 | PT.INNT ---
Date of service: 05/04/19 Time of Service: 12:22 PT Notes Visit Reasons: UTI,TOXIC METABOLIC ENCEPHALOPATHY,MILD LITHIUM TO 05/04/2019 Held today's PT session, per nursing request. Will attempt to resume PT services tomorrow morning, if appropriate.
[2019-05-04] MEDS: LORazepam 2 MG/ML VIAL 1 MG IVP ×2 (12:30→18:40)
[2019-05-04] MEDS: diphenhydrAMINE 50 MG/ML VIAL 25 MG IVP (12:39)
[2019-05-04] MEDS: cefTRIAXone 1 GM/50 ML BAG IVPB (13:04)
--- NOTE | 2019-05-04 15:00 | W.INMHPGNOTE ---
Date of service: 05/04/19 Time of Service: 14:45 Mental Health Crisis Note Presenting Issue How did you arrive at the ED and why did you come: Patient arrives to [facility] transition unit with chief complaint of broken rib(s) and elevated anxiety / confusion and medication non-compliance (lithium). Precipitating Factors Patient is an 79yo female with extended history of anxiety and prior in-patient treatment. Per documentation and health care social worker consult, patient has a history of medication non-compliance and decompensation in relation anxiety and psychosis. Disposition BEHAVIOR: Appropriate EYE CONTACT: Fleeting MOOD: Unable to assess AFFECT: Unable to assess APPETITE: N/A SLEEP(trouble falling/staying asleep: N/A Plan Full assessment was not completed as patient was too subdued and not engaged and/or cooperative with process. Patient speaks extremely softly and it is difficult to adequately evaluate and hear all responses to questions in her current state. Patient did not exhibit any behavioral manifestations of acute psychosis at time of evaluation. Patient has not been medically cleared at time of contact. This information will be passed on to clinician and another evaluation may be warranted once clearance has been completed and/or patient presents in a more cooperative state. Signature Clinician's Name/Title: Bryon Sandoval [facility] Emergency Clinician
--- NOTE | 2019-05-04 15:16 | CMPROGNOTE_ITS ---
- If Service Date Differs Date of service: 05/04/19 Time of Service: 15:16 Care Management Progress Note S/O: Stacy is lying in bed when CM comes to meet with her today. Her daughter, Lluvia, is present in the room. Stacy makes little eye contact and engages minimally with CM. Daughter shares her concerns patient is becoming psychotic as she has been refusing to take her medications and has a history of on-set of psychosis when off of [place] for a period of time. At provider's request, CM coordinated a mental health crisis assessment. Krishan, [facility] crisis screener, briefly met with Stacy and reported he was unable to complete the assessment due to patient's lack of engagement with the process. CM continues to follow. A: Stacy is an 79 year old female admitted to [facility] on 05/02/2019 for UTI, toxic metabolic encephalopathy, and mild lithium toxicity. P: Disposition is to be determined in the next following days based on Stacy' progress and mental status. Per provider, Stacy is not currently medically cleared for discharge. CM continues to follow and to support discharge planning needs. - MH Services (Omit if N/A) Current MH Services: [facility] (Sees Marita Monsalve aprn, for med management)
--- NOTE | 2019-05-04 15:31 | W.PM.PROGNOT ---
Date of Service Date of service: 05/04/19 Time of Service: 15:31 Assessment and Plan Assessment and plan (1) Encephalopathy acute: Start date: 05/04/19 Start time: 15:43 Status: Acute Assessment and plan: Unable to assess at this time. Psych history with severe bipolar, anxiety and missed 2 doses of lithium. Daughter states when doses missed she becomes this way. this appears to be her underlying psych baseline. Unable to assess from infectious stand point, though yesterday she was AAOx3, so I feel this is more psych at this time. (2) UTI (urinary tract infection): Start date: 05/04/19 Start time: 15:45 Status: Acute Assessment and plan: Group b strep grew on urine culture. On ceftriaxone. Will give 5 day dose. (3) Urinary retention with incomplete bladder emptying: Start date: 05/04/19 Start time: 15:46 Status: Acute Assessment and plan: When patient willing to cooperate d/c catheter and PVR x 24 hours to assess urinary retention (4) Dehydration: Start date: 05/04/19 Start time: 15:47 Status: Acute Assessment and plan: Resolved. (5) Acute kidney injury superimposed on chronic kidney disease: Start date: 05/04/19 Start time: 15:47 Status: Acute Assessment and plan: Kidney function normal, likely in setting of not taking lithium x 2 days with hydration (6) Bipolar 2 disorder: Start date: 05/04/19 Start time: 15:48 Status: Chronic Assessment and plan: Refused lithium last night, today anxious, talking to her self not making sense. Refusing all care. Given ativan 1 mg IVP prn with benadryl IVP prn, q 6 hours for agitation Continue seroquel, and nortriptyline (7) Essential hypertension: Start date: 05/04/19 Start time: 15:50 Status: Chronic Assessment and plan: Continue amlodipine and metoprolol. Unable to assess today as patient is not cooperative (8) DVT prophylaxis: Start date: 05/04/19 Start time: 15:50 Status: Acute Assessment and plan: heparin SC (9) Discharge planning issues: Start date: 05/04/19 Start time: 15:50 Status: Acute Assessment and plan: Full code If patient becomes psychotic may require psychiatric treatment vs home. Will try liquid lithium to get patient to cooperate and ativan IVP with Benadryl. Above case discussed with Dr. Ferguson who is in agreement. Subjective Subjective Patient reports: other Interval history since last seen: Patient agitated and not allowing care today. Daughter at bedside, states when patient misses librium doses she has a psychotic break. Patient was talking to self and not making much sense, but then would say I can't I can't. refused assessment. Refused PO meds. Injection of ativan and benadryl given to patient for anxiety, pt was much calmer following injection. Ordered as needed. Stopped po ativan will trial low dose [id number]. Exam Narrative Exam Narrative: After injection, patient only allowed evaluation of her heart and anterior lung sounds. RRR no mumur, lungs clear from anterior position. AAO x self at this time, likely related to psychiatric history. Objective Objective Clinical Data: Abnormal lab results 05/04/19 05/04/19 Range/Units 08:45 08:45 WBC 12.86 H D (4.4-10.8) k/cumm MCHC 31.5 L (32.0-36.0) g/dL RDW 14.9 H (11.7-14.6) % Absolute Neutrophils 10.97 H (1.2-6.7) k/cumm Chloride 108 H (98-107) mmol/L Anion Gap 12.2 H (3-11) mmol/L Glucose 130 H (74-106) mg/dL Vital Signs Temperature 36.7 C 05/04/19 10:50 Temperature Source Skin 05/04/19 10:50 Pulse 112 H 05/04/19 10:50 Pulse Rhythm Regular 05/04/19 09:00 Pulse 86 05/02/19 13:01 Respiratory Rate 24 05/04/19 10:50 Respiratory Effort Non-Labored 05/04/19 09:00 Respiratory Depth Shallow 05/04/19 09:00 Respiratory Pattern Normal 05/04/19 09:00 Blood Pressure 172/99 H 05/03/19 15:42 Blood Pressure Mean 101 05/02/19 13:00 Blood Pressure Position Sitting 05/02/19 08:16 Pulse Oximetry 97 05/04/19 10:50 Oxygen Delivery Method Room Air 05/04/19 10:50 Oxygen Flow Rate 0 05/04/19 10:50 Pain Level 3 05/03/19 15:42 Comment 05/04/19 10:50 Intake & Output 05/03/19 05/04/19 05/04/19 23:59 11:59 23:59 Intake Total 1502.083 / 3560.000 300 / 420 120 / 420 Output Total 2100 / 5300 1300 / 1750 450 / 1750 Balance -597.917 / -1740.000 -1000 / -1330 -330 / -1330 Intake: IV 722.083 / 2070.000 Oral 780 / 1490 300 / 420 120 / 420 Output: Urine 2100 / 5300 1300 / 1750 450 / 1750 Other: Urine Color Pale Light [place]onda Yellow Urine Appearance Clear Sediment Clear Stool Size Moderate Stool Characteristics Soft Liquid Green Laboratory Results WBC 12.86 k/cumm (4.4-10.8) H D 05/04/19 08:45 RBC 4.34 m/cumm (4.00-5.20) 05/04/19 08:45 Hgb 12.0 g/dL (12.0-15.5) 05/04/19 08:45 Hct 38.1 % (36.0-46.0) 05/04/19 08:45 MCV 87.8 fL (80-95) 05/04/19 08:45 MCH 27.6 pg (27.0-33.0) 05/04/19 08:45 MCHC 31.5 g/dL (32.0-36.0) L 05/04/19 08:45 RDW 14.9 % (11.7-14.6) H 05/04/19 08:45 Plt Count 376 x1000/uL (130-400) 05/04/19 08:45 MPV 8.3 fL (8.0-11.0) 05/04/19 08:45 Immature Gran % 0.2 05/04/19 08:45 Neutrophils % 85.3 05/04/19 08:45 Lymphocytes % 9.7 05/04/19 08:45 Monocytes % 4.5 05/04/19 08:45 Eosinophils % 0.2 05/04/19 08:45 Basophils % 0.1 05/04/19 08:45 Absolute Neutrophils 10.97 k/cumm (1.2-6.7) H 05/04/19 08:45 Absolute Lymphocytes 1.25 k/cumm (1.2-3.4) 05/04/19 08:45 Absolute Monocytes 0.58 k/cumm (0.11-0.7) 05/04/19 08:45 Absolute Eosinophils 0.03 k/cumm (0.0-0.7) 05/04/19 08:45 Absolute Basophils 0.01 k/cumm (0.0-0.2) 05/04/19 08:45 Sodium 144 mmol/L (136-145) 05/04/19 08:45 Potassium 3.6 mmol/L (3.5-5.1) 05/04/19 08:45 Chloride 108 mmol/L (98-107) H 05/04/19 08:45 Carbon Dioxide 23.8 mmol/L (21.0-32.0) 05/04/19 08:45 Anion Gap 12.2 mmol/L (3-11) H 05/04/19 08:45 BUN 11 mg/dL (7-18) 05/04/19 08:45 Creatinine 0.93 mg/dL (0.55-1.02) 05/04/19 08:45 Estimated GFR/1.73 m2 58.01 (mL/min/1.73m2) 05/04/19 08:45 Glucose 130 mg/dL (74-106) H 05/04/19 08:45 Lactate 0.7 mmol/L (0.6-1.4) 05/03/19 07:15 Calcium 9.1 mg/dL (8.5-10.1) 05/04/19 08:45 Magnesium 2.2 mg/dL (1.8-2.4) 05/03/19 07:15 Total Bilirubin 0.3 mg/dL (0.2-1.0) 05/02/19 09:55 AST 28 U/L (15-37) 05/02/19 09:55 ALT 33 U/L (14-59) 05/02/19 09:55 Alkaline Phosphatase 75 U/L (46-116) 05/02/19 09:55 Troponin I < 0.05 ng/Ml (<0.06) 05/02/19 11:40 Total Protein 7.5 g/dL (6.4-8.2) 05/02/19 09:55 Albumin 3.5 g/dL (3.4-5.0) 05/02/19 09:55 Lipase 161 U/L (73-393) 05/02/19 09:55 TSH 1.66 uIU/mL (0.36-3.74) 05/03/19 07:15 Urine Color Yellow (Yellow) 05/02/19 09:05 Urine Clarity Sl cloudy (Clear) 05/02/19 09:05 Urine pH 7.0 (5-8) 05/02/19 09:05 Ur Specific [place] 1.010 (1.005-1.025) 05/02/19 09:05 Urine Protein Negative mg/dL (Negative) 05/02/19 09:05 Urine Ketones Negative mg/dL (Negative) 05/02/19 09:05 Urine Blood Trace-intact (Negative) H 05/02/19 09:05 Urine Nitrite Negative (Negative) 05/02/19 09:05 Urine Bilirubin Negative (Negative) 05/02/19 09:05 Urine Urobilinogen 0.2 EU/dL (Up TO 0.2) 05/02/19 09:05 Ur Leukocyte Esterase Large (Negative) H 05/02/19 09:05 Urine RBC 0-2 HPF (0-2) 05/02/19 09:05 Urine WBC >50 HPF (0-5) H 05/02/19 09:05 Ur Epithelial Cells Few HPF (Negative) 05/02/19 09:05 Urine Crystals Negative HPF (Negative) 05/02/19 09:05 Urine Bacteria Few HPF (Negative) 05/02/19 09:05 Urine Casts Negative LPF (Negative) 05/02/19 09:05 Urine Mucus Negative (Negative) 05/02/19 09:05 Urine Other (Negative) 05/02/19 09:05 Ur Culture Indicated? Yes 05/02/19 09:05 Urine Glucose Negative mg/dL (Negative) 05/02/19 09:05 [place] 0.36 mmol/L (0.60-1.20) L 05/03/19 07:15
[2019-05-04] MEDS: Cholestyramine/Aspartame PKT 1 EACH PO (15:48)
[2019-05-04 16:38] VITALS: TEMP 37
[2019-05-04] MEDS: diphenhydrAMINE 50 MG/ML VIAL IVP (18:41)
[2019-05-04] MEDS: QUEtiapine 100 MG TAB PO (19:10)
[2019-05-04 20:14] VITALS: BP 168/116; PULSE 109; RESP 21; TEMP 36.5; O2SAT 95
[2019-05-04 23:19] VITALS: BP 149/88; PULSE 125; RESP 20; TEMP 37; O2SAT 99
[2019-05-05 03:55] VITALS: BP 133/101; PULSE 116; RESP 21; TEMP 36.9; O2SAT 96
[2019-05-05] MEDS: Levothyroxine 50 MCG TAB PO (05:30)
[2019-05-05] MEDS: Heparin 5,000 UNITS/ML VIAL 5000 UNITS SC ×3 (05:30→20:32)
[2019-05-05 07:50] VITALS: BP 145/87; PULSE 108; RESP 17; TEMP 37.3; O2SAT 96
[2019-05-05 07:53] LABS: Abs Immature Grans 0.02 k/cumm (0.0-0.09); Absolute Basophil Count 0.01 k/cumm (0.0-0.2); Absolute Eosinophil Count 0.15 k/cumm (0.0-0.7); Absolute Lymphocyte Count 1.58 k/cumm (1.2-3.4); Absolute Monocyte Count 0.85 k/cumm (0.11-0.7); Absolute Neutrophil Count 8.69 k/cumm (1.2-6.7); Basophils % 0.1; Eosinophils % 1.3; HCT 37.3 % (36.0-46.0); HGB 11.6 g/dL (12.0-15.5); Immature Grans % 0.2; Mean Corp. HGB Concentration 31.1 g/dL (32.0-36.0); Mean Corpuscular Hemoglobin 27.4 pg (27.0-33.0); Mean Corpuscular Volume 88.2 fL (80-95); Mean Platelet Volume 8.6 fL (8.0-11.0); Monocytes % 7.5; Neutrophils % 76.9; Platelet Count 395 x1000/uL (130-400); RBC 4.23 m/cumm (4.00-5.20); RBC Distribution Width 15.2 % (11.7-14.6)
[2019-05-05 08:04] LABS: Anion Gap 12.1 mmol/L (3-11); BUN 17 mg/dL (7-18); CO2 22.9 mmol/L (21.0-32.0); CREATININE 1.22 mg/dL (0.55-1.02); Chloride 107 mmol/L (98-107); Estimated GFR 42.41 (mL/min/1.73m2); Glucose 119 mg/dL (74-106); Magnesium 2.4 mg/dL (1.8-2.4); Potassium 3.3 mmol/L (3.5-5.1); Sodium 142 mmol/L (136-145)
[2019-05-05] MEDS: Pantoprazole 40 MG TABCR PO (08:21)
[2019-05-05] MEDS: amLODIPine 5 MG TAB PO (08:23)
[2019-05-05] MEDS: Aspirin 81 MG CHEW PO (08:23)
[2019-05-05] MEDS: Metoprolol CR 50 MG TABCR PO (08:25)
--- NOTE | 2019-05-05 09:08 | PDOC.CMPRO ---
- If Service Date Differs Date of service: 05/05/19 Time of Service: 09:08 Care Management Progress Note S/O: Stacy continues to experience a lot of anxiety. When asked how she is, she replies I'm still living. She engages minimally with CM and when she does answer questions, her speech is so soft that she is difficult to understand. Her daughter, who is present in the room, reports Stacy is now taking her [place] and is doing a little bit better. CM continues to follow. A: Stacy is an 79 year old female admitted to [facility] on 05/02/2019 for UTI, metabolic encephalopathy, and mild [place] toxicity. P: Disposition remains to be determined as it is based on Stacy' progress and mental status over the next few days. Per provider, Stacy is not currently medically cleared for discharge. CM continues to follow and to support discharge planning needs. - MH Services (Omit if N/A) Current MH Services: [facility] (Sees Marita Monsalve aprn, for med mgmt)
--- NOTE | 2019-05-05 10:07 | PT.INNT ---
Date of service: 05/05/19 Time of Service: 10:07 PT Notes Visit Reasons: UTI,TOXIC METABOLIC ENCEPHALOPATHY,MILD LITHIUM TO 05/05/19 Patient appears confused and refuses to work with PT. Will attempt to resume PT services this afternoon.
[2019-05-05] MEDS: Normal Saline Flush 10 ML SYR IVP (14:07)
[2019-05-05] MEDS: cefTRIAXone 1 GM/50 ML BAG IVPB (14:08)
--- NOTE | 2019-05-05 14:29 | PT.INTREAT ---
Date of service: 05/05/19 Time of Service: 14:29 PT Notes Visit Reasons: UTI,TOXIC METABOLIC ENCEPHALOPATHY,MILD LITHIUM TO Inpatient Physical Therapy Treatment Note [facility] Date: 05/05/19 PRECAUTIONS: Fall SUBJECTIVE: Stacy reports the need to use the toilet. OBJECTIVE: Patient appears confused PAIN: No c/o pain BED MOBILITY/TRANSFERS Sit-stand: CGA Stand-sit: CGA GAIT Assistive Device: No AD Weight bearing: Full Assist: CGA Distance: 20' x2 Deviation: Confused, increased need for direction Static stand 2x5 minutes with SBA TOILETING: Patient toileted with assist for donning/doffing brief ASSESSMENT: Patient tolerated session with increased confusion. She was able to tolerate a progression in gait distance without assistive device support. PLAN: Continue with PT's POC TREATMENT CODE/TIME: 25 minutes; [id number] x2
[2019-05-05] MEDS: diphenhydrAMINE 50 MG/ML VIAL IVP (14:30)
[2019-05-05] MEDS: LORazepam 2 MG/ML VIAL 1 MG IVP (14:30)
[2019-05-05 15:27] LABS: Bilirubin Negative (Negative); Blood Moderate (Negative); Clarity Clear (Clear); Glucose Negative (Negative); Ketones Negative (Negative); Leukocyte Esterase Trace (Negative); Nitrite Negative (Negative); Specific Gravity 1.025 (1.005-1.025); Urobilinogen 0.2 EU/dL (Up TO 0.2)
[2019-05-05 15:32] VITALS: BP 122/80; PULSE 109; RESP 24; TEMP 37.3; O2SAT 94
[2019-05-05 15:38] LABS: Epithelial Cells Rare HPF (Negative)
[2019-05-05 15:39] LABS: Bacteria Few HPF (Negative); C & S Indicated? Yes; Crystals Negative HPF (Negative); Mucus Moderate (Negative); Other Cells Few Renal (Negative); RBC >50 HPF (0-2)
--- NOTE | 2019-05-05 15:56 | PGE_ITS ---
Date of Service Date of service: 05/05/19 Time of Service: 15:57 Assessment and Plan Assessment and plan (1) Encephalopathy acute: Start date: 05/05/19 Start time: 16:01 Status: Acute Assessment and plan: Unable to assess at this time. Psych history with severe bipolar, anxiety and missed 2 doses of lithium. Daughter states when doses missed she becomes this way. this appears to be her underlying psych baseline. She did take lithium last night, she is less anxious and more cooperative. Continue to offer lithium and patient should be back to baseline (2) UTI (urinary tract infection): Start date: 05/05/19 Start time: 16:02 Status: Acute Assessment and plan: Group b strep grew on urine culture. On ceftriaxone. urine culture with sensitivity to penicillins. Will give 5 day dose. Leukocytosis improving (3) Urinary retention with incomplete bladder emptying: Start date: 05/05/19 Start time: 16:02 Status: Acute Assessment and plan: catheter dcd and PVR x 24 hours to assess urinary retention (4) Acute kidney injury superimposed on chronic kidney disease: Start date: 05/05/19 Start time: 16:03 Status: Acute Assessment and plan: Creatinine is elevated at 1.22, but this still appears to be within patients baseline (5) Bipolar 2 disorder: Start date: 05/05/19 Start time: 16:04 Status: Chronic Assessment and plan: Took lithium last night. Improving today, allowing care and cooperative. Continues to anxious and talking to self, but answering questions more appropriately. Benadryl with ativan IVP as needed. Continue seroquel, and nortriptyline (6) Essential hypertension: Start date: 05/05/19 Start time: 16:06 Status: Chronic Assessment and plan: Continue amlodipine and metoprolol. normotensive. (7) DVT prophylaxis: Start date: 05/05/19 Start time: 16:06 Status: Acute Assessment and plan: heparin SC (8) Discharge planning issues: Status: Acute Assessment and plan: Full code If patient becomes psychotic may require psychiatric treatment vs home. Above case discussed with Dr. Ferguson who is in agreement. Subjective Subjective Patient reports: no new complaints Interval history since last seen: Better today. Was more cooperative and took lithium last night. Sitter at bedside due to anxiety. laying in bed and talking to self again today. Finish 5 day course of ceftriaxone. Exam Narrative Exam Narrative: Sherri cooperative today. Still continues to be oriented to self. tachy rhythm, no SOB, LSC, EOMI, FROM. no clubbing, cyanosis or edema to bilateral feet. Skin intact. Follow catheter dcd. Objective Objective Clinical Data: Abnormal lab results 05/05/19 05/05/19 05/05/19 Range/Units 07:23 07:23 14:30 WBC 11.30 H (4.4-10.8) k/cumm Hgb 11.6 L (12.0-15.5) g/dL MCHC 31.1 L (32.0-36.0) g/dL RDW 15.2 H (11.7-14.6) % Absolute Neutrophils 8.69 H (1.2-6.7) k/cumm Absolute Monocytes 0.85 H (0.11-0.7) k/cumm Potassium 3.3 L (3.5-5.1) mmol/L Anion Gap 12.1 H (3-11) mmol/L Creatinine 1.22 H (0.55-1.02) mg/dL Glucose 119 H (74-106) mg/dL Urine Protein 100 H (Negative) mg/dL Urine Blood Moderate H (Negative) Ur Leukocyte Esterase Trace H (Negative) Urine RBC >50 H (0-2) HPF Urine WBC 10-20 H (0-5) HPF Vital Signs Temperature 37.3 C 05/05/19 15:32 Temperature Source Tympanic 05/05/19 15:32 Pulse 109 H 05/05/19 15:32 Pulse Rhythm Regular 05/05/19 15:30 Pulse 86 05/02/19 13:01 Respiratory Rate 24 05/05/19 15:32 Respiratory Effort Non-Labored 05/05/19 15:30 Respiratory Depth Normal 05/05/19 15:30 Respiratory Pattern Normal 05/05/19 15:30 Blood Pressure 122/80 05/05/19 15:32 Blood Pressure Mean 101 05/02/19 13:00 Blood Pressure Position Sitting 05/02/19 08:16 Pulse Oximetry 94 L 05/05/19 15:32 Oxygen Delivery Method Room Air 05/05/19 15:32 Oxygen Flow Rate 0 05/05/19 15:32 Pain Level 0 05/05/19 15:32 Comment 05/04/19 16:38 Intake & Output 05/04/19 05/05/19 05/05/19 23:59 11:59 23:59 Intake Total 170 / 470 620 / 620 Output Total 650 / 1950 100 / 400 300 / 400 Balance -480 / -1480 -100 / 220 320 / 220 Weight 68 kg Intake: IV 50 / 50 80 / 80 Oral 120 / 420 540 / 540 Output: Urine 650 / 1950 100 / 400 300 / 400 Other: Urine Color Yellow Yellow Yellow Straw Urine Appearance Cloudy Clear Cloudy Urine Odor Normal Stool Size Moderate Small Stool Characteristics Soft Soft Liquid Brown Green Laboratory Results WBC 11.30 k/cumm (4.4-10.8) H 05/05/19 07:23 RBC 4.23 m/cumm (4.00-5.20) 05/05/19 07:23 Hgb 11.6 g/dL (12.0-15.5) L 05/05/19 07:23 Hct 37.3 % (36.0-46.0) 05/05/19 07:23 MCV 88.2 fL (80-95) 05/05/19 07:23 MCH 27.4 pg (27.0-33.0) 05/05/19 07:23 MCHC 31.1 g/dL (32.0-36.0) L 05/05/19 07:23 RDW 15.2 % (11.7-14.6) H 05/05/19 07:23 Plt Count 395 x1000/uL (130-400) 05/05/19 07:23 MPV 8.6 fL (8.0-11.0) 05/05/19 07:23 Immature Gran % 0.2 05/05/19 07:23 Neutrophils % 76.9 05/05/19 07:23 Lymphocytes % 14.0 05/05/19 07:23 Monocytes % 7.5 05/05/19 07:23 Eosinophils % 1.3 05/05/19 07:23 Basophils % 0.1 05/05/19 07:23 Absolute Neutrophils 8.69 k/cumm (1.2-6.7) H 05/05/19 07:23 Absolute Lymphocytes 1.58 k/cumm (1.2-3.4) 05/05/19 07:23 Absolute Monocytes 0.85 k/cumm (0.11-0.7) H 05/05/19 07:23 Absolute Eosinophils 0.15 k/cumm (0.0-0.7) 05/05/19 07:23 Absolute Basophils 0.01 k/cumm (0.0-0.2) 05/05/19 07:23 Sodium 142 mmol/L (136-145) 05/05/19 07:23 Potassium 3.3 mmol/L (3.5-5.1) L 05/05/19 07:23 Chloride 107 mmol/L (98-107) 05/05/19 07:23 Carbon Dioxide 22.9 mmol/L (21.0-32.0) 05/05/19 07:23 Anion Gap 12.1 mmol/L (3-11) H 05/05/19 07:23 BUN 17 mg/dL (7-18) D 05/05/19 07:23 Creatinine 1.22 mg/dL (0.55-1.02) H 05/05/19 07:23 Estimated GFR/1.73 m2 42.41 (mL/min/1.73m2) 05/05/19 07:23 Glucose 119 mg/dL (74-106) H 05/05/19 07:23 Lactate 0.7 mmol/L (0.6-1.4) 05/03/19 07:15 Calcium 9.0 mg/dL (8.5-10.1) 05/05/19 07:23 Magnesium 2.4 mg/dL (1.8-2.4) 05/05/19 07:23 Total Bilirubin 0.3 mg/dL (0.2-1.0) 05/02/19 09:55 AST 28 U/L (15-37) 05/02/19 09:55 ALT 33 U/L (14-59) 05/02/19 09:55 Alkaline Phosphatase 75 U/L (46-116) 05/02/19 09:55 Troponin I < 0.05 ng/Ml (<0.06) 05/02/19 11:40 Total Protein 7.5 g/dL (6.4-8.2) 05/02/19 09:55 Albumin 3.5 g/dL (3.4-5.0) 05/02/19 09:55 Lipase 161 U/L (73-393) 05/02/19 09:55 TSH 1.66 uIU/mL (0.36-3.74) 05/03/19 07:15 Urine Color Yellow (Yellow) 05/05/19 14:30 Urine Clarity Clear (Clear) 05/05/19 14:30 Urine pH 6.0 (5-8) 05/05/19 14:30 Ur Specific [place] 1.025 (1.005-1.025) 05/05/19 14:30 Urine Protein 100 mg/dL (Negative) H 05/05/19 14:30 Urine Ketones Negative mg/dL (Negative) 05/05/19 14:30 Urine Blood Moderate (Negative) H 05/05/19 14:30 Urine Nitrite Negative (Negative) 05/05/19 14:30 Urine Bilirubin Negative (Negative) 05/05/19 14:30 Urine Urobilinogen 0.2 EU/dL (Up TO 0.2) 05/05/19 14:30 Ur Leukocyte Esterase Trace (Negative) H 05/05/19 14:30 Urine RBC >50 HPF (0-2) H 05/05/19 14:30 Urine WBC 10-20 HPF (0-5) H 05/05/19 14:30 Ur Epithelial Cells Rare HPF (Negative) 05/05/19 14:30 Urine Crystals Negative HPF (Negative) 05/05/19 14:30 Urine Bacteria Few HPF (Negative) 05/05/19 14:30 Urine Casts Negative LPF (Negative) 05/02/19 09:05 Urine Mucus Moderate (Negative) 05/05/19 14:30 Urine Other Few renal (Negative) 05/05/19 14:30 Ur Culture Indicated? Yes 05/05/19 14:30 Urine Glucose Negative mg/dL (Negative) 05/05/19 14:30 [place] 0.36 mmol/L (0.60-1.20) L 05/03/19 07:15 Patient ABO/Rh A Positive 05/05/19 08:30 Antibody Screen Negative 05/05/19 08:30
[2019-05-05] MEDS: Acetaminophen 325 MG TAB PO (18:09)
[2019-05-05] MEDS: Docusate Sodium 100 MG CAP PO (18:10)
[2019-05-05] MEDS: QUEtiapine 100 MG TAB PO (20:31)
[2019-05-05] MEDS: Psyllium PKT 1 EACH PO (20:32)
[2019-05-05 20:50] VITALS: BP 171/91; PULSE 103; RESP 24; TEMP 37.1; O2SAT 96
[2019-05-06 01:53] VITALS: BP 133/84; PULSE 98; RESP 18; TEMP 36.4; O2SAT 95
[2019-05-06] MEDS: Heparin 5,000 UNITS/ML VIAL 5000 UNITS SC ×3 (04:47→20:08)
[2019-05-06] MEDS: Levothyroxine 50 MCG TAB PO (05:08)
[2019-05-06 05:25] VITALS: BP 133/82; PULSE 87; RESP 18; TEMP 36.6; O2SAT 95
[2019-05-06] MEDS: LORazepam 2 MG/ML VIAL 1 MG IVP ×2 (07:31→17:09)
[2019-05-06] MEDS: diphenhydrAMINE 50 MG/ML VIAL IVP (07:32)
[2019-05-06] MEDS: Normal Saline Flush 10 ML SYR IVP ×3 (07:32→17:10)
[2019-05-06 07:40] VITALS: BP 129/70; PULSE 70; RESP 17; TEMP 36.1; O2SAT 95
[2019-05-06 07:49] LABS: Abs Immature Grans 0.02 k/cumm (0.0-0.09); Absolute Basophil Count 0.01 k/cumm (0.0-0.2); Absolute Eosinophil Count 0.49 k/cumm (0.0-0.7); Absolute Lymphocyte Count 2.21 k/cumm (1.2-3.4); Absolute Monocyte Count 0.81 k/cumm (0.11-0.7); Absolute Neutrophil Count 4.96 k/cumm (1.2-6.7); Basophils % 0.1; Eosinophils % 5.8; HCT 37.8 % (36.0-46.0); HGB 11.8 g/dL (12.0-15.5); Immature Grans % 0.2; Mean Corp. HGB Concentration 31.2 g/dL (32.0-36.0); Mean Corpuscular Hemoglobin 27.9 pg (27.0-33.0); Mean Corpuscular Volume 89.4 fL (80-95); Mean Platelet Volume 9.5 fL (8.0-11.0); Monocytes % 9.5; Neutrophils % 58.4; Platelet Count 336 x1000/uL (130-400); RBC 4.23 m/cumm (4.00-5.20); RBC Distribution Width 15.3 % (11.7-14.6)
[2019-05-06 07:58] LABS: Anion Gap 12.5 mmol/L (3-11); BUN 29 mg/dL (7-18); CO2 22.5 mmol/L (21.0-32.0); CREATININE 1.41 mg/dL (0.55-1.02); Calcium 9.3 mg/dL (8.5-10.1); Chloride 105 mmol/L (98-107); Estimated GFR 35.89 (mL/min/1.73m2); Glucose 105 mg/dL (74-106); Potassium 3.6 mmol/L (3.5-5.1); Sodium 140 mmol/L (136-145)
--- NOTE | 2019-05-06 10:34 | PT.INTREAT ---
Date of service: 05/06/19 Time of Service: 10:34 PT Notes Visit Reasons: UTI,TOXIC METABOLIC ENCEPHALOPATHY,MILD LITHIUM TO Inpatient Physical Therapy Treatment Note [facility] Date: 05/06/19 PRECAUTIONS: Fall, Confusion SUBJECTIVE: Stacy expresses that she is sick of sitting in her bed. She is agreeable to taking a walk. Throughout session, she states I need to get to the hospital. OBJECTIVE: PAIN: No c/o pain BED MOBILITY/TRANSFERS Supine-sit: I with HOB flat Sit-stand: S Stand-sit: S GAIT Assistive Device: No AD Weight bearing: Full Assist: CGA-SBA Distance: 200' Deviation: Confused, standing pauses ASSESSMENT: Patient tolerated session well without complaint. She was able to tolerate a progression in gait distance without assistive device support and CGA-SBA. She would benefit from continued gait and transfer training, as well as general strengthening for improved mobility. PLAN: Continue with PT's POC TREATMENT CODE/TIME: 25 minutes; 34467 x2
[2019-05-06 11:20] VITALS: BP 137/88; PULSE 106; RESP 18; TEMP 36; O2SAT 95
--- NOTE | 2019-05-06 11:37 | W.NUTCONSULT ---
Date of service: 05/06/19 Time of Service: 11:37 Nutritional Consult ASSESSMENT: 79 year old female admitted with dehydration, UTI, ITZEL and encephalopathy. BMI indicates obesity. Following Heart Healthy Diet with adequate intake. Currently not considered at nutritional risk. screen completed by Corrina Duncan MS, RD NUTRITIONAL DIAGNOSIS: Dehydration, UTI MONITORING AND EVALUATION: will monitor po intake and weight trends and intervene as needed Time Spent in Nutritional Counseling and Treatment: 0 time face to face
[2019-05-06] MEDS: LORazepam 1 MG TAB PO (12:16)
[2019-05-06] MEDS: cefTRIAXone 1 GM/50 ML BAG IVPB (13:18)
[2019-05-06 15:40] VITALS: BP 146/92; PULSE 122; RESP 17; TEMP 36.4; O2SAT 96
--- NOTE | 2019-05-06 18:46 | W.PM.PROGNOT ---
Date of Service Date of service: 05/06/19 Time of Service: 18:46 Assessment and Plan Assessment and plan (1) UTI (urinary tract infection): Status: Acute Assessment and plan: She continues on IV ceftriaxone for her UTI. Urinalysis 05/02/2019 is growing out 10-50,000 colonies of mixed positive cori and 10-50,000 colonies of gram-positive cori. Group B strep was isolated which should be sensitive to ceftriaxone. (2) Encephalopathy acute: Status: Acute Assessment and plan: Her encephalopathy was thought to be secondary to the untreated UTI. She has been hydrated and the UTI is been treated. By report some of her encephalopathic symptoms are improved but she still is having some ongoing psyche issues including paranoia, lashing out at people, anxiety. Her daughter came by this evening and evaluated her and wanted her checked again by mental health. Her daughter recommend she go into a psych facility. (3) Bipolar 2 disorder: Status: Chronic Assessment and plan: Patient has had ongoing issues with bipolar illness. She is back on her lithium. Unclear what her baseline level of functioning is. Question psych referral. (4) Discharge planning issues: Status: Acute Assessment and plan: She is a full code and monitored in acute care status. She is improving. We are trying to assess her baseline and appropriateness for return home versus referral to a psych facility. Subjective Subjective Interval history since last seen: Patient requires a CPSO constantly because of wandering and abnormal behaviors. She has been striking out at caregivers that have been trying to help her. Her behaviors are a little better than they were yesterday. She is now on scheduled lorazepam as she takes at home. She is not complaining of any dysuria. No fevers. Exam Narrative Exam Narrative: On exam she is markedly confused and confabulatory. She appears to have a certain amount of paranoia. She has no respiratory difficulty. Her lungs are generally clear heart regular no abdominal tenderness. Objective Objective Clinical Data: Abnormal lab results 05/06/19 05/06/19 Range/Units 07:12 07:12 Hgb 11.8 L (12.0-15.5) g/dL MCHC 31.2 L (32.0-36.0) g/dL RDW 15.3 H (11.7-14.6) % Absolute Monocytes 0.81 H (0.11-0.7) k/cumm Anion Gap 12.5 H (3-11) mmol/L BUN 29 H D (7-18) mg/dL Creatinine 1.41 H (0.55-1.02) mg/dL Vital Signs Temperature 36.4 C L 05/06/19 15:40 Temperature Source Tympanic 05/06/19 15:40 Pulse 122 H 05/06/19 15:40 Pulse Rhythm Regular 05/06/19 10:37 Pulse 86 05/02/19 13:01 Respiratory Rate 17 05/06/19 15:40 Respiratory Effort Non-Labored 05/06/19 10:37 Respiratory Depth Normal 05/06/19 10:37 Respiratory Pattern Normal 05/06/19 10:37 Blood Pressure 146/92 H 05/06/19 15:40 Blood Pressure Mean 101 05/02/19 13:00 Blood Pressure Position Sitting 05/02/19 08:16 Pulse Oximetry 96 05/06/19 15:40 Oxygen Delivery Method Room Air 05/06/19 15:40 Oxygen Flow Rate 0 05/06/19 15:40 Pain Level 0 05/06/19 15:40 Comment 05/06/19 15:40 Intake & Output 05/05/19 05/06/19 05/06/19 23:59 11:59 23:59 Intake Total 620 / 620 170 / 630 460 / 630 Output Total 300 / 400 350 / 350 Balance 320 / 220 -180 / 280 460 / 280 Weight 70 kg Intake: IV 80 / 80 20 / 80 60 / 80 Oral 540 / 540 150 / 550 400 / 550 Output: Urine 300 / 400 350 / 350 Other: Urine Color Yellow Yellow Straw Urine Appearance Cloudy Clear Urine Odor None Comment per cadre pt voided a small amount of urine in the toilet earlier pt has voided x 2 on this shift. first void at approximately with small amount. second void at approximately 1400 with a very large void noted in toilet; no hat present in toilet to measure. Voiding Methods Toilet Bedside Commode Toilet Laboratory Results WBC 8.50 k/cumm (4.4-10.8) 05/06/19 07:12 RBC 4.23 m/cumm (4.00-5.20) 05/06/19 07:12 Hgb 11.8 g/dL (12.0-15.5) L 05/06/19 07:12 Hct 37.8 % (36.0-46.0) 05/06/19 07:12 MCV 89.4 fL (80-95) 05/06/19 07:12 MCH 27.9 pg (27.0-33.0) 05/06/19 07:12 MCHC 31.2 g/dL (32.0-36.0) L 05/06/19 07:12 RDW 15.3 % (11.7-14.6) H 05/06/19 07:12 Plt Count 336 x1000/uL (130-400) 05/06/19 07:12 MPV 9.5 fL (8.0-11.0) 05/06/19 07:12 Immature Gran % 0.2 05/06/19 07:12 Neutrophils % 58.4 05/06/19 07:12 Lymphocytes % 26.0 05/06/19 07:12 Monocytes % 9.5 05/06/19 07:12 Eosinophils % 5.8 05/06/19 07:12 Basophils % 0.1 05/06/19 07:12 Absolute Neutrophils 4.96 k/cumm (1.2-6.7) 05/06/19 07:12 Absolute Lymphocytes 2.21 k/cumm (1.2-3.4) 05/06/19 07:12 Absolute Monocytes 0.81 k/cumm (0.11-0.7) H 05/06/19 07:12 Absolute Eosinophils 0.49 k/cumm (0.0-0.7) 05/06/19 07:12 Absolute Basophils 0.01 k/cumm (0.0-0.2) 05/06/19 07:12 Sodium 140 mmol/L (136-145) 05/06/19 07:12 Potassium 3.6 mmol/L (3.5-5.1) 05/06/19 07:12 Chloride 105 mmol/L (98-107) 05/06/19 07:12 Carbon Dioxide 22.5 mmol/L (21.0-32.0) 05/06/19 07:12 Anion Gap 12.5 mmol/L (3-11) H 05/06/19 07:12 BUN 29 mg/dL (7-18) H D 05/06/19 07:12 Creatinine 1.41 mg/dL (0.55-1.02) H 05/06/19 07:12 Estimated GFR/1.73 m2 35.89 (mL/min/1.73m2) 05/06/19 07:12 Glucose 105 mg/dL (74-106) 05/06/19 07:12 Lactate 0.7 mmol/L (0.6-1.4) 05/03/19 07:15 Calcium 9.3 mg/dL (8.5-10.1) 05/06/19 07:12 Magnesium 2.4 mg/dL (1.8-2.4) 05/05/19 07:23 Total Bilirubin 0.3 mg/dL (0.2-1.0) 05/02/19 09:55 AST 28 U/L (15-37) 05/02/19 09:55 ALT 33 U/L (14-59) 05/02/19 09:55 Alkaline Phosphatase 75 U/L (46-116) 05/02/19 09:55 Troponin I < 0.05 ng/Ml (<0.06) 05/02/19 11:40 Total Protein 7.5 g/dL (6.4-8.2) 05/02/19 09:55 Albumin 3.5 g/dL (3.4-5.0) 05/02/19 09:55 Lipase 161 U/L (73-393) 05/02/19 09:55 TSH 1.66 uIU/mL (0.36-3.74) 05/03/19 07:15 Urine Color Yellow (Yellow) 05/05/19 14:30 Urine Clarity Clear (Clear) 05/05/19 14:30 Urine pH 6.0 (5-8) 05/05/19 14:30 Ur Specific [place] 1.025 (1.005-1.025) 05/05/19 14:30 Urine Protein 100 mg/dL (Negative) H 05/05/19 14:30 Urine Ketones Negative mg/dL (Negative) 05/05/19 14:30 Urine Blood Moderate (Negative) H 05/05/19 14:30 Urine Nitrite Negative (Negative) 05/05/19 14:30 Urine Bilirubin Negative (Negative) 05/05/19 14:30 Urine Urobilinogen 0.2 EU/dL (Up TO 0.2) 05/05/19 14:30 Ur Leukocyte Esterase Trace (Negative) H 05/05/19 14:30 Urine RBC >50 HPF (0-2) H 05/05/19 14:30 Urine WBC 10-20 HPF (0-5) H 05/05/19 14:30 Ur Epithelial Cells Rare HPF (Negative) 05/05/19 14:30 Urine Crystals Negative HPF (Negative) 05/05/19 14:30 Urine Bacteria Few HPF (Negative) 05/05/19 14:30 Urine Casts Negative LPF (Negative) 05/02/19 09:05 Urine Mucus Moderate (Negative) 05/05/19 14:30 Urine Other Few renal (Negative) 05/05/19 14:30 Ur Culture Indicated? Yes 05/05/19 14:30 Urine Glucose Negative mg/dL (Negative) 05/05/19 14:30 [place] 0.36 mmol/L (0.60-1.20) L 05/03/19 07:15 Patient ABO/Rh A Positive 05/05/19 08:30 Antibody Screen Negative 05/05/19 08:30
--- NOTE | 2019-05-06 18:47 | CMPROGNOTE_ITS ---
- If Service Date Differs Date of service: 05/06/19 Time of Service: 18:47 Care Management Progress Note S/O: Stacy was sitting up in her chair when CM met with her. She was responding to questions from CM, but often too quiet to hear or understand. CM also met with Stacy's daughter, Lluvia, who reported that she did not feel that she would be able to bring her mother home at this time. She stated that her mother has needed inpatient psychiatric stabilization many times in the past, and feels that she may need it now. CM contacted [facility] for a new evaluation. Theron from [facility] met with the patient and family and reported that she is not a candidate for transfer at this time as she does not meet criteria. CM will continue to follow. A: Stacy is an 79 year old female admitted to [facility] on 05/02/2019 for UTI, metabolic encephalopathy, and mild [place] toxicity. P: Anticipate Stacy will return home when medically cleared, possibly tomorrow. She will follow up with her PCP as well as outpatient therapist, as recommended. Her daughter will attempt to reschedule an appointment with Vanessa at [facility], as one was missed due to her inpatient status. Lluvia will drive her home via private vehicle when ready. CM will continue to follow and support patient, family and staff with discharge planning considerations.
[2019-05-06] MEDS: QUEtiapine 100 MG TAB PO (20:07)
[2019-05-06] MEDS: Cholestyramine/Aspartame PKT 1 EACH PO (20:07)
[2019-05-06] MEDS: Psyllium PKT 1 EACH PO (20:07)
[2019-05-06 20:29] VITALS: BP 132/83; PULSE 119; RESP 19; TEMP 36.5; O2SAT 96
[2019-05-07 01:02] VITALS: BP 129/64; PULSE 115; RESP 18; TEMP 36.6; O2SAT 95
[2019-05-07] MEDS: Normal Saline Flush 10 ML SYR IVP (01:21)
[2019-05-07] MEDS: LORazepam 2 MG/ML VIAL 1 MG IVP (01:21)
[2019-05-07] MEDS: Heparin 5,000 UNITS/ML VIAL 5000 UNITS SC (06:49)
[2019-05-07 07:35] LABS: Abs Immature Grans 0.02 k/cumm (0.0-0.09); Absolute Basophil Count 0.02 k/cumm (0.0-0.2); Absolute Eosinophil Count 0.53 k/cumm (0.0-0.7); Absolute Lymphocyte Count 1.63 k/cumm (1.2-3.4); Absolute Monocyte Count 0.69 k/cumm (0.11-0.7); Absolute Neutrophil Count 4.06 k/cumm (1.2-6.7); Basophils % 0.3; Eosinophils % 7.6; HCT 39.3 % (36.0-46.0); HGB 12.4 g/dL (12.0-15.5); Immature Grans % 0.3; Lymphocytes % 23.5; Mean Corp. HGB Concentration 31.6 g/dL (32.0-36.0); Mean Corpuscular Hemoglobin 27.9 pg (27.0-33.0); Mean Corpuscular Volume 88.3 fL (80-95); Mean Platelet Volume 9.3 fL (8.0-11.0); Monocytes % 9.9; Neutrophils % 58.4; Platelet Count 417 x1000/uL (130-400); RBC 4.45 m/cumm (4.00-5.20); RBC Distribution Width 15.3 % (11.7-14.6); White Blood Cell Count 6.95 k/cumm (4.4-10.8)
[2019-05-07 07:40] VITALS: BP 128/82; PULSE 111; RESP 17; TEMP 36.6; O2SAT 96
[2019-05-07 07:47] LABS: Anion Gap 11.8 mmol/L (3-11); BUN 32 mg/dL (7-18); CO2 24.2 mmol/L (21.0-32.0); CREATININE 1.61 mg/dL (0.55-1.02); Calcium 8.9 mg/dL (8.5-10.1); Chloride 103 mmol/L (98-107); Estimated GFR 30.79 (mL/min/1.73m2); Glucose 99 mg/dL (74-106); Potassium 3.6 mmol/L (3.5-5.1); Sodium 139 mmol/L (136-145)
[2019-05-07] MEDS: Multivitamin TAB 1 TAB PO (09:20)
[2019-05-07] MEDS: LORazepam 1 MG TAB PO (09:20)
[2019-05-07] MEDS: Aspirin 81 MG CHEW PO (09:20)
[2019-05-07] MEDS: Pantoprazole 40 MG TABCR PO (09:20)
[2019-05-07] MEDS: Folic Acid 1 MG TAB PO (09:20)
[2019-05-07] MEDS: Metoprolol CR 50 MG TABCR PO (09:20)
[2019-05-07] MEDS: Levothyroxine 50 MCG TAB PO (09:29)
[2019-05-07] MEDS: amLODIPine 5 MG TAB PO (09:29)
[2019-05-07 09:48] VITALS: PULSE 108
--- NOTE | 2019-05-07 17:04 | PDOC.CMDIS ---
- If Service Date Differs Date of service: 05/07/19 Time of Service: 17:04 LACE Index Scoring Tool - Questions: Length of Stay (in days): 4 - 6 Acuity (Admit via E.D.?): Yes Comorbidities: Liver or Renal Disease E.D. Visits: 4 - Answers: Total Score: 16 Risk of Readmission: High Risk Care Management Discharge Reason for Hospitalization: Toxic metabolic encephalopathy Discharge Plan: Stacy will return home with no additional services at this time. She will follow up today with Vanessa at [facility] regarding her med management. Her daughter Lluvia will drive her home via private vehicle. Patient/Family Education Needs: Review discharge instructions regarding medication, discussion of self care needs including Ask Me Three - MH Services (Omit if N/A) Current MH Services: Internal [facility] (Out patient med management)
--- NOTE | 2019-05-07 18:50 | DSE_ITS ---
Date of service: 05/07/19 Time of Service: 18:50 DS: Diagnosis Discharge Diagnosis (1) UTI (urinary tract infection): Status: Acute Asessment and Plan: Her urine culture grew out group B strep. She was treated with ceftriaxone. (2) Encephalopathy acute: Status: Acute Asessment and Plan: Her encephalopathic behavior was thought to be due to the untreated UTI and dehydration. She was hydrated with fluids and the UTI was treated. She continued to have some behavioral difficulties. Some of this was thought to be baseline for her. (3) Bipolar 2 disorder: Status: Chronic Asessment and Plan: She was put back on her lithium. She was cooperating with taking her medications. (4) Discharge planning issues: Status: Acute Asessment and Plan: She was discharged to home with plans to follow-up with [facility] later this morning. They will decide whether she needs further psych iatric hospitalization. Discharge Plan Disposition Patient Disposition: HOME Condition: Improving Discharge Details Chief Complaint: Anxiety Reason For Visit: UTI,TOXIC METABOLIC ENCEPHALOPATHY,MILD LITHIUM TO Admit Date/Time: 05/02/19 11:37 Admit Provider: Hayley Pinzon Attending Provider: Hyaley Pinzon Primary Care Provider: Patricia Goss ED Provider: Elsa Batista Hospital Course Hospital Course: 79-year-old female with history of bipolar 2 disorder, severe depression, history of ECT treatments, on lithium therapy presents with increased anger anxiety and agitation. She was combative with family members. Her p.o. intake had fallen off. In the emergency room she was found to have evidence of a urinary tract infection. She was started empirically on ceftriaxone. She had a head CT that was negative. Her lithium level slightly in the toxic range at 0.78. She appears to be in urinary retention with 800 cc in her bladder. She went on to grow group B strep in her urine culture. Subjectively her behaviors were a little more controllable. She had a CPSO during her entire stay. She wandered around and had most of her demands met. She did get agitated a few times with caregivers and could be assaultive at times. Our overall assessment was she was approaching baseline. Some of her behaviors seem to be chronic. We discussed this with her daughter who feels she would benefit from psychiatric admission. [facility] human services evaluated her and felt that she was at baseline and not in eminent danger to herself or others. Ultimately they offered her an appointment for 11 AM this morning to assess her on an outpatient basis. She is discharged home. Home Meds and New Rx's Prescriptions: Continued meloxicam 7.5 mg tablet 7.5 mg PO DAILY PRN (Reason: pain) Qty: 30 RF: 0 multivitamin 1 EACH tablet 1 ea PO DAILY RF: 0 cholecalciferol (vitamin D3) [Vitamin D3] 2,000 UNIT tablet 2,000 unit PO DAILY RF: 0 acetaminophen [Tylenol Extra Strength] 500 MG tablet 500 mg PO Q6H PRN RF: 0 aspirin [Aspirin Low-Strength] 81 MG tablet,chewable 81 mg PO DAILY RF: 0 nortriptyline 25 MG capsule 50 mg PO HS RF: 0 lorazepam 0.5 MG tablet 1 mg PO TID RF: 0 quetiapine [Seroquel] 50 MG tablet 100 mg PO HS RF: 0 metoprolol succinate 50 mg tablet extended release 24 hr 50 mg PO DAILY Qty: 30 RF: 11 folic acid 1 mg tablet 1 mg PO DAILY Qty: 30 RF: 11 amlodipine 5 mg tablet 5 mg PO DAILY Qty: 30 RF: 11 pantoprazole 40 mg tablet,delayed release (DR/EC) 40 mg PO DAILY Qty: 30 RF: 11 levothyroxine 50 mcg tablet 50 mcg PO DAILY Qty: 30 RF: 11 meclizine 25 mg tablet 25 mg PO BID PRN (Reason: dizziness) Qty: 10 RF: 0 ondansetron 4 mg tablet,disintegrating 4 mg PO Q8H PRN (Reason: nausea and vomiting) Qty: 10 RF: 0 lithium carbonate 300 mg Tablet Extended Release 300 mg PO QHS RF: 0 Discharge Instructions Instructions: Urinary Tract Infection in Women (DC), Encephalopathy (DC), [place] Toxicity (DC) Additional Instructions: Follow-up at [facility] services as scheduled Stand Alone Forms: Nursing Discharge Form Referrals: Bj Douglas DO [OSTEOPATHIC DOCTOR] - 05/13/19 2:45 pm Activity:: Activity as Tolerated Equipment/Supplies:: No Equipment Needed Diet:: As Tolerated Discharge Orders Discharge Orders: Discharge Order (Routine); Ordered 05/07/19 Ordered By: Reji Rangel Discharge Data Discharge Date/Time-TO BE ENTERED AT DEPARTURE: 05/07/19 10:49 DS: Summary Status at Discharge Functional status at discharge: independent ambulation Overall status at discharge: patient is progressing back to baseline Mental Status: other (Agitated dementia) Speech and Movement: agitated Mood: paranoid, angry and other (Agitated dementia) Affect: labile affect Exam Narrative Exam Narrative: At the time of discharge her vitals were stable she was afebrile satting 96% on room air Psych Mental Status: other (Agitated dementia) Speech and Movement: agitated Mood: paranoid, angry and other (Agitated dementia) Affect: labile affect DS: Data Vitals/I&O Vitals and I&O: Vital Signs Temperature 36.6 C 05/07/19 07:40 Temperature Source Tympanic 05/07/19 07:40 Pulse 108 H 05/07/19 09:48 Pulse Rhythm Regular 05/07/19 09:49 Pulse 86 05/02/19 13:01 Respiratory Rate 17 05/07/19 07:40 Respiratory Effort Non-Labored 05/07/19 09:49 Respiratory Depth Normal 05/07/19 09:49 Respiratory Pattern Normal 05/07/19 09:49 Blood Pressure 128/82 05/07/19 07:40 Blood Pressure Mean 101 05/02/19 13:00 Blood Pressure Position Sitting 05/02/19 08:16 Pulse Oximetry 96 05/07/19 07:40 Oxygen Delivery Method Room Air 05/07/19 07:40 Oxygen Flow Rate 0 05/07/19 07:40 Pain Level 0 05/07/19 07:40 Comment 05/06/19 15:40 Intake & Output 05/06/19 05/07/19 05/07/19 23:59 11:59 23:59 Intake Total 470 / 640 420 / 420 Balance 470 / 290 420 / 420 Weight 69.9 kg Intake: IV 70 / 90 Oral 400 / 550 420 / 420 Other: Urine Color Yellow Urine Appearance Clear Comment pt has voided x 2 on this shift. first void at approximately with small amount. second void at approximately 1400 with a very large void noted in toilet; no hat present in toilet to measure. VOIDED Voiding Methods Toilet Bedside Commode Data Completed and Pending Labs on day of discharge: Labs from last 24 hours 05/07/19 05/07/19 06:54 06:54 WBC 6.95 RBC 4.45 Hgb 12.4 Hct 39.3 MCV 88.3 MCH 27.9 MCHC 31.6 L RDW 15.3 H Plt Count 417 H MPV 9.3 Immature Gran % 0.3 Neutrophils % 58.4 Lymphocytes % 23.5 Monocytes % 9.9 Eosinophils % 7.6 Basophils % 0.3 Absolute Neutrophils 4.06 Absolute Lymphocytes 1.63 Absolute Monocytes 0.69 Absolute Eosinophils 0.53 Absolute Basophils 0.02 Sodium 139 Potassium 3.6 Chloride 103 Carbon Dioxide 24.2 Anion Gap 11.8 H BUN 32 H Creatinine 1.61 H Estimated GFR/1.73 m2 30.79 Glucose 99 Calcium 8.9 PFSH Medical History Bipolar 2 disorder (Chronic 01/30/17) Per Dr. 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 Surgical History S/P ORIF (open reduction internal fixation) fracture (Acute) Family History Brother Heart disease Stroke Brother Heart disease Other Hypertension Social History Smoking/Tobacco Use Status: Never Alcohol Intake: former Drug use: Never Substance use type: does not use Number of Children: 2 Pets and animals: Yes Pets and animals: cat(s) Current gender identity: female What type of physical activity do you participate in: walking Frequency: daily Seatbelt use: always Do you feel safe at home: Yes Do you feel safe in your relationship?: Yes
--- NOTE | 2019-05-08 13:51 | PT.INDS ---
Date of service: 05/08/19 Time of Service: 13:51 PT Notes Visit Reasons: UTI,TOXIC METABOLIC ENCEPHALOPATHY,MILD LITHIUM TO Inpatient Physical Therapy Discharge Summary Dates: 05/08/2019 Dates of Service: 05/03/2019 through 05/06/2019 This is a clinical summary of care provided on the duration of dates listed above. No charge was made in the completion of this documentation. Referring Doctor: Dr. Hayley Pinzon PT Orders: PT CONSULT: Evaluate and treat: Limited ability Precautions: Fall precautions Patient Profile/Admitting Diagnosis: Patient is an 79-year-old female admitted May 02, 2019 after coming into the ER secondary to concerns from her family members with anxiety/confusion. Was found to be diagnosed with a UTI. Patient was recently seen at an [facility] emergency room on 19 April secondary to a fall onto a stove fracturing ribs 8 and 9 on the right. She was discharged to home after that ER visit. Patient's family indicated more confusion as of late and lack of interest with activities she enjoyed such as working on her puzzles in the evening. Also lack of appetite. PMHX: Medical History Bipolar 2 disorder (Chronic 01/30/17) Per Dr. Heath, with severe treatment resistant dpressive phases vs treatment resistant depression 01/25/17 RH CKD (chronic kidney disease) Deep vein thrombosis (Resolved 12/08/13) ECT for depression, [facility] [place] [facility] (gastroesophageal reflux disease) (Chronic) HLD (hyperlipidemia) HTN (hypertension) Hypothyroidism (Chronic 11/11/12) Tardive dyskinesia (Chronic 04/17/16) Dr. 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 Social History/Home Situation: Patient states she lives in a home with her and her daughter often checks on her. She has 3 steps entering the home. Baseline mobility was no use of an assistive device at home. Current Functional Limitations: Ambulation, functional mobility Equipment Owned/DME: None Subjective: NT Objective: General Observation: NT Mental Status: NT Pain: NT ROM: Right Upper Extremity: Within functional limits Left Upper Extremity: Within functional limits Right Lower Extremity: Within functional limits Left Lower Extremity: Within functional limits Strength: Right Upper Extremity: 4/5 throughout Left Upper Extremity: 4/5 throughout Right Lower Extremity: 4-/5 throughout Left Lower Extremity: 4-/5 throughout Sensation: Intact sensation light touch throughout bilateral lower extremities Bed Mobility/Transfers: Supine to sit: Independent Sit to stand: Supervision Stand to sit: Supervision belt Bed mobility: Independent Gait: Patient tolerated 200 feet of level surface ambulation with full weightbearing requiring only CGA without an assistive device requiring only standing causes and minimal assist for directional changes. Balance: Static Sitting: Good Dynamic Sitting: Good Static Standing: Fair Dynamic Standing: Fair Assessment: Patient is a 79 year old female referred to physical therapy services with the diagnosis of UTI, anxiety. Patient presents with clinical signs and symptoms consistent with medical diagnosis, as demonstrated by the following impairment level findings: Motor control, strength. Impairments are contributing to the following functional limitations: Bed mobility, ambulation, transfers. Goals: Goals X1 week 1. Supine-Sit: standby assist MET 2. Sit-Supine: Standby assist MET 3. Sit-Stand: Standby assist to a front wheel walker MET 4. Stand-Sit: Standby assist from a front wheeled walker MET 5. Bed-Chair: Standby assist with front wheeled walker MET 6. Chair-Bed: Standby assist with front wheeled walker MET 7. Gait greater than or equal to 150 feet with standby assist and front wheeled walker MET 8. Stairs standby assist with negotiation of 3 stairs with railing MET DISCHARGE RECOMMENDATIONS: Home health PT for further strengthening and functional mobility training as well as gait training with front wheeled walker TREATMENT CODE/TIME: NC. Thank you very much for this referral. Sneha Paiz PT, DPT, CLT [facility] Inpatient PT at [facility]
== END 2019-05-07 10:49 | disposition home or self-care (01) | DRG 689 ==
LOC: ER 12:40 → MS 13:17
PROVIDERS: Nurse Practitioner Family; Admitting Provider Internal Medicine; Emergency Provider Physician Assistant; PCP Nurse Practitioner Family; Visit Provider Family Medicine
DX: N39.0 Urinary tract infection, site not specified (principal); G92 Toxic encephalopathy; F31.81 Bipolar II disorder; F03.91 Unspecified dementia, unspecified severity, with behavioral disturbance; N17.9 Acute kidney failure, unspecified; E86.0 Dehydration; R33.9 Retention of urine, unspecified; B95.1 Streptococcus, group B, as the cause of diseases classified elsewhere; Z91.83 Wandering in diseases classified elsewhere; T43.595A Adverse effect of other antipsychotics and neuroleptics, initial encounter; E03.9 Hypothyroidism, unspecified; N18.9 Chronic kidney disease, unspecified; I12.9 Hypertensive chronic kidney disease with stage 1 through stage 4 chronic kidney disease, or unspecified chronic kidney disease; K21.9 Gastro-esophageal reflux disease without esophagitis
CPT/HCPCS: 36410; 36415; 80048; 80053; 83690; 86850; 86900; 86901; 87040; 87077; 93005; 96361; 96365; 97162; 97530; 99223; 99233; 99238; 99285; 70450; 71046; 80178; 81003; 81015; 83605; 83735; 84443; 84484; 85025; 87086; 87324; 93010; J0696; J1200; J1644; J2060; J3490

== ENCOUNTER 2019-05-14 01:17 | Outpatient (CLI) | payer MEDICARE, SELFPAY ==
[2019-05-14 08:16] LABS: Lithium 0.64 mmol/L (0.60-1.20)
[2019-05-14 08:31] LABS: ALT 24 U/L (14-59); AST 17 U/L (15-37); Albumin 3.5 g/dL (3.4-5.0); Alkaline Phosphatase 76 U/L (46-116); BUN 16 mg/dL (7-18); Bilirubin, Total 0.3 mg/dL (0.2-1.0); CREATININE 1.38 mg/dL (0.55-1.02); Calcium 8.7 mg/dL (8.5-10.1); Chloride 106 mmol/L (98-107); Estimated GFR 36.79 (mL/min/1.73m2); Glucose 145 mg/dL (74-106); Sodium 142 mmol/L (136-145); TSH 5.19 uIU/mL (0.36-3.74); Total Protein 6.9 g/dL (6.4-8.2)
== END 2019-05-14 01:37 ==
PROVIDERS: Nurse Practitioner Family; PCP Nurse Practitioner Family; Visit Provider Nurse Practitioner Family
DX: F31.4 Bipolar disorder, current episode depressed, severe, without psychotic features (principal); Z51.81 Encounter for therapeutic drug level monitoring; Z79.899 Other long term (current) drug therapy
CPT/HCPCS: 36415; 80053; 80178; 84443

== ENCOUNTER 2019-05-16 11:38 | Outpatient (REF) | payer MEDICARE, SELFPAY | END 2019-05-16 11:58 | LOC: LBN 11:38 | PROVIDERS: PCP Nurse Practitioner Family; Visit Provider Family Medicine | DX: Z53.8 Procedure and treatment not carried out for other reasons | CPT/HCPCS: 87086 ==

== ENCOUNTER 2019-05-20 11:03 | Outpatient (REF) | payer MEDICARE, SELFPAY | END 2019-05-20 11:23 | LOC: LBN 11:03 | PROVIDERS: PCP Nurse Practitioner Family; Visit Provider Family Medicine | DX: N39.0 Urinary tract infection, site not specified (principal) | CPT/HCPCS: 87086 ==

== ENCOUNTER 2019-06-04 02:23 | Outpatient (CLI) | payer MEDICARE, SELFPAY ==
[2019-06-04 08:12] LABS: BUN 16 mg/dL (7-18); CREATININE 1.13 mg/dL (0.55-1.02); Estimated GFR 46.33 (mL/min/1.73m2)
[2019-06-04 08:26] LABS: TSH (W/Ref FT4) 2.65 uIU/mL (0.36-3.74)
[2019-06-04 08:53] LABS: Lithium 0.55 mmol/L (0.60-1.20)
== END 2019-06-04 02:43 ==
PROVIDERS: Family Medicine; PCP Nurse Practitioner Family; Visit Provider Nurse Practitioner Family
DX: E03.9 Hypothyroidism, unspecified (principal); E07.81 Sick-euthyroid syndrome; F31.4 Bipolar disorder, current episode depressed, severe, without psychotic features; Z79.899 Other long term (current) drug therapy; Z51.81 Encounter for therapeutic drug level monitoring
CPT/HCPCS: 36415; 84520; 80178; 82565; 84443

== ENCOUNTER 2019-06-05 09:56 | Emergency (ER) | payer MEDICARE, SELFPAY ==
[2019-06-05 10:01] VITALS: BP 151/68; PULSE 123; RESP 18; TEMP 36.4; O2SAT 98
--- NOTE | 2019-06-05 10:13 | ED.GENADUL_ITS ---
Discharge Plan Disposition Patient Disposition: HOME Condition: Stable Discharge Details Chief Complaint: AMS/LOC Clinical Impression: Bipolar 2 disorder Primary Care Provider: Patricia Goss ED Provider: Reji Hobbs Home Meds and New Rx's Prescriptions: Continued nortriptyline 50 mg capsule 50 mg PO QHS RF: 0 Vraylar 1.5 mg capsule 1.5 mg PO DAILY Qty: 30 RF: 0 multivitamin 1 EACH tablet 1 ea PO DAILY RF: 0 cholecalciferol (vitamin D3) [Vitamin D3] 2,000 UNIT tablet 2,000 unit PO DAILY RF: 0 acetaminophen [Tylenol Extra Strength] 500 MG tablet 500 mg PO Q6H PRN RF: 0 aspirin [Aspirin Low-Strength] 81 MG tablet,chewable 81 mg PO DAILY RF: 0 metoprolol succinate 50 mg tablet extended release 24 hr 50 mg PO DAILY Qty: 30 RF: 11 folic acid 1 mg tablet 1 mg PO DAILY Qty: 30 RF: 11 amlodipine 5 mg tablet 5 mg PO DAILY Qty: 30 RF: 11 pantoprazole 40 mg tablet,delayed release (DR/EC) 40 mg PO DAILY Qty: 30 RF: 11 levothyroxine 50 mcg tablet 50 mcg PO DAILY Qty: 30 RF: 11 meclizine 25 mg tablet 25 mg PO BID PRN (Reason: dizziness) Qty: 10 RF: 0 lorazepam 0.5 mg tablet 0.5 mg PO TID RF: 0 quetiapine [Seroquel] 50 mg tablet 100 mg PO HS RF: 0 ondansetron 4 mg tablet,disintegrating 4 mg PO Q8H PRN (Reason: nausea and vomiting) Qty: 10 RF: 0 lithium carbonate 300 mg tablet extended release 300 mg PO QHS RF: 0 Discharge Instructions Additional Instructions: follow up with your primary care provider and [facility] within the next 2 weeks take your medications as directed if you feel more ill, have difficulty breathing or fevers return to the emergency department Medical Decision Making 79 yo female with hx of bipolar, tardive dyskinesia, prior dvt not on blood thinners, ckd, who comes in with daughter as she had confusion today on taking her meds. She was admitted for a uti last month and d/c'd and today she thought the meds that were for her were her husbands and got upset about the being on a phone. The daughter brought her here. She states behavior like this is not significantly out of the ordinary for her mother. She has no chest pain, fevesr, chills. She does appear anxious on exam but is caox4 with no focal neuro deficits. suspect the episode this morning is due to her underlying bipolar but will evaluate for possible uti vs electrolyte abnormality. pt remains stable, lab shows no acute findings. Awaiting UA Ua unremarkable and remains stable. She remains caox4, no si/hi. Pt refused to meet with care management. Advised daughter to have her f/u with pcp and nekhs and return precautions given Differential Diagnosis Differential Diagnosis: uti, bipolar, electrolyte abnormalities HPI General Mode of arrival: ambulatory . Date/Time Provider Initiated Documentation: 06/05/19 10:04 . Limitations to Documentation: no limitations . Information obtained by: patient and family . History of Present Illness 79 year old F presents to the emergency department with the chief complaint of did not take meds, Patient started experiencing this minute(s) (120) and it has been constant. No relieving factors improve symptom(s), No exacerbating factors reported . Patient did receive the following treatments prior to arrival, none Related Data Home Medications Medication Instructions Recorded Confirmed cholecalciferol (vitamin D3) 2,000 unit PO DAILY 09/18/12 06/05/19 [Vitamin D3] multivitamin 1 ea PO DAILY 09/18/12 06/05/19 acetaminophen [Tylenol Extra 500 mg PO Q6H PRN 12/31/13 06/05/19 Strength] aspirin [Aspirin Low-Strength] 81 mg PO DAILY tab.chew 12/11/14 06/05/19 amlodipine 5 mg tablet 5 mg PO DAILY #30 tab-cap 11/20/18 06/05/19 folic acid 1 mg tablet 1 mg PO DAILY #30 tab 11/20/18 06/05/19 levothyroxine 50 mcg tablet 50 mcg PO DAILY #30 tab 11/20/18 06/05/19 metoprolol succinate 50 mg 50 mg PO DAILY #30 tab-cap 11/20/18 06/05/19 tablet,extended release 24 hr pantoprazole 40 mg tablet,delayed 40 mg PO DAILY #30 tab 11/20/18 06/05/19 release ondansetron 4 mg PO Q8H PRN #10 tab 12/21/18 06/05/19 meclizine 25 mg tablet 25 mg PO BID PRN #10 tab 01/10/19 06/05/19 cariprazine 1.5 mg capsule 1.5 mg PO DAILY #30 cap 05/16/19 06/05/19 lithium carbonate 300 mg 300 mg PO QHS tab 05/16/19 06/05/19 tablet,extended release lorazepam 0.5 mg tablet 0.5 mg PO TID tab-cap 05/16/19 06/05/19 nortriptyline 50 mg capsule 50 mg PO QHS 05/16/19 06/05/19 quetiapine 50 mg tablet 100 mg PO HS tab 05/16/19 06/05/19 Previous Rx's Medication Instructions Recorded amlodipine 5 mg tablet 5 mg PO DAILY #30 tab-cap 11/20/18 folic acid 1 mg tablet 1 mg PO DAILY #30 tab 11/20/18 levothyroxine 50 mcg tablet 50 mcg PO DAILY #30 tab 11/20/18 metoprolol succinate 50 mg 50 mg PO DAILY #30 tab-cap 11/20/18 tablet,extended release 24 hr pantoprazole 40 mg tablet,delayed 40 mg PO DAILY #30 tab 11/20/18 release ondansetron 4 mg PO Q8H PRN #10 tab 12/21/18 meclizine 25 mg tablet 25 mg PO BID PRN #10 tab 01/10/19 cariprazine 1.5 mg capsule 1.5 mg PO DAILY #30 cap 05/16/19 Allergies Allergy/AdvReac Type Severity Reaction Status Date / Time fluoxetine Allergy Mild Verified 06/05/19 10:05 olanzapine Allergy Mild Verified 06/05/19 10:05 trazodone Allergy Mild Verified 06/05/19 10:05 haloperidol AdvReac Severe Contraindic Verified 06/05/19 10:05 ated Phenothiazines AdvReac Severe DYSTONIA Verified 06/05/19 10:05 General Stated Complaint: AMS/LOC GRANT: 3 Review of Systems All systems reviewed & are unremarkable except as noted in HPI and below Constitutional Constitutional: Denies chills and Denies fever(s) ENT Ears, Nose, Mouth, and Throat: Denies change in voice Cardiovascular Cardiovascular: Denies chest pain and Denies dyspnea Respiratory Respiratory: Denies cough and Denies dyspnea Gastrointestinal Gastrointestinal: Denies abdominal pain, Denies nausea and Denies vomiting Musculoskeletal Musculoskeletal: Denies joint swelling Psychiatric Psychiatric: Denies depression [facility] Social History Smoking/Tobacco Use Status: Never Alcohol Intake: former Drug use: Never Substance use type: does not use Number of Children: 2 Pets and animals: Yes Pets and animals: cat(s) Current gender identity: female What type of physical activity do you participate in: walking Frequency: daily Seatbelt use: always Do you feel safe at home: Yes Do you feel safe in your relationship?: Yes Exam Const General: anxious Orientation: alert HENMT Head: normal to inspection Ears: external ears normal General nose exam: external nose normal Mouth: moist mucous membranes Eyes General: appearance normal, both eyes and all related structures Neck Neck: normal visual inspection Resp Effort & Inspection: normal respiratory effort and able to speak in complete sentences Cardio Rate: regular rate Skin General skin exam: no rashes or lesions noted Neuro General: alert and oriented x3 Extrem General: normal to inspection Psych Mental Status: mental status grossly normal Course Vital Signs Vital signs: Vital Signs Temperature 36.4 C L 06/05/19 10:01 Pulse 123 H 06/05/19 10:01 Respiratory Rate 18 06/05/19 10:01 Blood Pressure 151/68 H 06/05/19 10:01 Pulse Oximetry 98 06/05/19 10:01 Temperature 36.4 C L 06/05/19 10:01 Temperature Source Temporal Artery Scan 06/05/19 10:01 Pulse 123 H 06/05/19 10:01 Respiratory Rate 18 06/05/19 10:01 Respiratory Effort Non-Labored 06/05/19 10:04 Blood Pressure 151/68 H 06/05/19 10:01 Blood Pressure Position Supine 06/05/19 10:01 Pulse Oximetry 98 06/05/19 10:01 Oxygen Delivery Method Room Air 06/05/19 10:01 Oxygen Flow Rate 0 06/05/19 10:01 Pain Level 0 06/05/19 10:01
[2019-06-05 10:22] VITALS: RESP 18
[2019-06-05 10:26] LABS: BE (Venous) -3.5 mmol/L (-3-3); HCO3 (Venous) 22 mmol/L (22-28); O2 Sat (Venous) 70 % (70-80); TCO2 (Venous) 21 mmol/L (22-29); pCO2 (Venous) 39 mm/Hg (34-47); pH (Venous) 7.36 (7.32-7.43); pO2 (Venous) 38 mm/Hg (28-44)
[2019-06-05 10:29] LABS: Abs Immature Grans 0.01 k/cumm (0.0-0.09); Absolute Basophil Count 0.02 k/cumm (0.0-0.2); Absolute Eosinophil Count 0.19 k/cumm (0.0-0.7); Absolute Lymphocyte Count 1.27 k/cumm (1.2-3.4); Absolute Monocyte Count 0.42 k/cumm (0.11-0.7); Absolute Neutrophil Count 4.22 k/cumm (1.2-6.7); Basophils % 0.3; Eosinophils % 3.1; HCT 37.5 % (36.0-46.0); HGB 11.7 g/dL (12.0-15.5); Immature Grans % 0.2 %; Lymphocytes % 20.7; Mean Corp. HGB Concentration 31.2 g/dL (32.0-36.0); Mean Corpuscular Hemoglobin 27.9 pg (27.0-33.0); Mean Corpuscular Volume 89.3 fL (80-95); Mean Platelet Volume 8.5 fL (8.0-11.0); Monocytes % 6.9; Neutrophils % 68.8; Platelet Count 413 x1000/uL (130-400); RBC Distribution Width 15.8 % (11.7-14.6); White Blood Cell Count 6.13 k/cumm (4.4-10.8)
[2019-06-05 11:00] LABS: Magnesium 2.2 mg/dL (1.8-2.4); TSH (W/Ref FT4) 2.14 uIU/mL (0.36-3.74)
[2019-06-05 11:03] LABS: ALT 24 U/L (14-59); AST 20 U/L (15-37); Albumin 3.6 g/dL (3.4-5.0); Alkaline Phosphatase 91 U/L (46-116); Anion Gap 14.4 mmol/L (3-11); BUN 18 mg/dL (7-18); Bilirubin, Total 0.3 mg/dL (0.2-1.0); CO2 22.6 mmol/L (21.0-32.0); Chloride 107 mmol/L (98-107); Estimated GFR 33.41 (mL/min/1.73m2); Glucose 152 mg/dL (74-106); Lithium 0.53 mmol/L (0.60-1.20); Potassium 3.8 mmol/L (3.5-5.1); Sodium 144 mmol/L (136-145); Total Protein 7.8 g/dL (6.4-8.2)
[2019-06-05 11:11] VITALS: BP 122/66; PULSE 97; RESP 15; TEMP 36.4; O2SAT 94
[2019-06-05 11:13] LABS: ETHANOL BLOOD < 3.0 mg/dL (<3)
[2019-06-05] MEDS: Normal Saline 1,000 ML 150 ML IV (11:18)
[2019-06-05 11:19] LABS: Acetaminophen < 2 ug/mL (10-30)
[2019-06-05 11:58] VITALS: BP 113/51; PULSE 91; RESP 18; O2SAT 96
[2019-06-05 12:21] LABS: Bilirubin Negative (Negative); Blood Negative (Negative); Clarity Clear (Clear); Glucose Negative (Negative); Ketones Negative (Negative); Leukocyte Esterase Negative (Negative); Nitrite Negative (Negative); Specific Gravity <= 1.005 (1.005-1.025); Urobilinogen 0.2 EU/dL (Up TO 0.2); pH 6.5 (5-8)
== END 2019-06-05 13:04 | disposition home or self-care (01) ==
PROVIDERS: Emergency Provider Emergency Medicine; PCP Nurse Practitioner Family
DX: F31.81 Bipolar II disorder (principal)
CPT/HCPCS: 80053; 82805; 99282; 80178; 80320; 80329; 81003; 83735; 84443; 85025

== ENCOUNTER 2019-06-09 10:08 | Emergency (ER) | payer MEDICARE, SELFPAY ==
[2019-06-09 10:13] VITALS: BP 145/94; PULSE 114; RESP 20; TEMP 35.9; O2SAT 97
[2019-06-09] MEDS: Acetaminophen 500 MG TAB PO (10:59)
[2019-06-09 11:34] LABS: Abs Immature Grans 0.01 k/cumm (0.0-0.09); Absolute Basophil Count 0.01 k/cumm (0.0-0.2); Absolute Eosinophil Count 0.16 k/cumm (0.0-0.7); Absolute Lymphocyte Count 1.47 k/cumm (1.2-3.4); Absolute Monocyte Count 0.63 k/cumm (0.11-0.7); Absolute Neutrophil Count 4.54 k/cumm (1.2-6.7); Basophils % 0.1; Eosinophils % 2.3; HCT 35.7 % (36.0-46.0); HGB 11.1 g/dL (12.0-15.5); Immature Grans % 0.1 %; Lymphocytes % 21.6; Mean Corp. HGB Concentration 31.1 g/dL (32.0-36.0); Mean Corpuscular Hemoglobin 27.9 pg (27.0-33.0); Mean Corpuscular Volume 89.7 fL (80-95); Mean Platelet Volume 8.5 fL (8.0-11.0); Monocytes % 9.2; Neutrophils % 66.7; Platelet Count 364 x1000/uL (130-400); RBC 3.98 m/cumm (4.00-5.20); RBC Distribution Width 15.9 % (11.7-14.6); White Blood Cell Count 6.82 k/cumm (4.4-10.8)
[2019-06-09 11:51] LABS: ALT 21 U/L (14-59); AST 17 U/L (15-37); Albumin 3.4 g/dL (3.4-5.0); Alkaline Phosphatase 84 U/L (46-116); Anion Gap 10.3 mmol/L (3-11); BUN 16 mg/dL (7-18); Bilirubin, Total 0.2 mg/dL (0.2-1.0); CO2 25.7 mmol/L (21.0-32.0); CREATININE 1.27 mg/dL (0.55-1.02); Calcium 8.9 mg/dL (8.5-10.1); Chloride 108 mmol/L (98-107); Estimated GFR 40.49 (mL/min/1.73m2); Glucose 114 mg/dL (74-106); Potassium 3.9 mmol/L (3.5-5.1); Sodium 144 mmol/L (136-145); TSH 2.33 uIU/mL (0.36-3.74); Total Protein 7.2 g/dL (6.4-8.2)
[2019-06-09 11:52] LABS: Lithium 0.63 mmol/L (0.60-1.20)
--- NOTE | 2019-06-09 12:09 | PDOC.MHCN ---
Date of service: 06/09/19 Time of Service: 12:09 Mental Health Crisis Note Presenting Issue How did you arrive at the ED and why did you come: Stacy arrived to the ER today via [facility] after family called for help. Precipitating Factors Stacy has been struggling with agitation, confusion and day to day functions for the past 3 weeks. Her PMHNP, Marita Monsalve has attempted to work with Stacy and her family on an outpatient basis however, these attempts have not been beneficial. Marita tried Stacy on Vraylar 1.5mg to try to decrease the agitation but daughter reported that it has only intensified the agitation. Daughter wondered about an increase in lithium but Stacy' kidney levels are high so this is not supported. Stacy by hx is extremely sensitive to changes in medications even times administered either of these if not closely monitored could be detrimental to her health. Daughter described Stacy to be perseverating and obsessing on things and lately it has been [place] money she got that she has moved and hidden somewhere and now she is accusing others of taking. She has become dependant on her and will not allow him to leave the home to go to the store or out for a coffee with his friends. She is tearful and depressed. She is confused lately as to how she should put on her poise pads or depends and this has never been an issue. Daughter stated that most of her behaviors are first thing in the morning and later in the afternoons. Stacy is observed as tearful when we speak and and making comments that her family does not want her or that he took the wrong pills. Daughter stated that Stacy gets confused as to who is really the Pt and thinks it is her or her daughter. She stated that she her father and her brother can not continue to manage her in this state as she and her brother have missed a lot of work. Daughter reported that Stacy cannot take lithium during the day as it significantly increases her symptoms as does giving her, her meds on a different schedule than she has been taking them. Stacy' last hospitalization was May 2 years ago and Stacy was hospitalized for 7 months. Daughter reports that she tends ot have really long placements. Stacy denied SI and HI. She does not use substances. She can get aggressive when she is sick and has had some situations of being aggressive recetly. She is followed by Marita Monsalve from [facility] [phone]. Disposition BEHAVIOR: Stacy is tearful and confused. She speaks often in the 3rd person. She is medically cleared at this time. She is verbally aggressive but is not has not been physically aggressive. EYE CONTACT: Stacy makes fair eye contact. MOOD: Her mood is depressed. AFFECT: Her affect is flat and tearful. APPETITE: Stacy' appetite fluctuates day to day. SLEEP(trouble falling/staying asleep: Stacy has been sleeping as far as the daughter is aware. Plan Stacy needs more intensive support right now as her symptoms cannot be managed on an outpatient basis. I will seek an admission at [facility]. Provisional Diagnosis Depressive d/o unspecified Signature Clinician's Name/Title: Valerie Villarreal, MS Emergency Services Clinician
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
[2019-06-09 13:45] LABS: Bilirubin Negative (Negative); Blood Negative (Negative); Clarity Clear (Clear); Glucose Negative (Negative); Ketones Negative (Negative); Leukocyte Esterase Negative (Negative); Nitrite Negative (Negative); Urobilinogen 0.2 EU/dL (Up TO 0.2)
[2019-06-09 13:56] LABS: *AMPHETAMINES SCREEN URINE Negative (Negative); *BARBITURATES SCREEN URINE Negative (Negative); *BENZODIAZEPINES SCREEN URINE Negative (Negative); Cannabinoids THC Negative (Negative); Cocaine Screen,Urine Negative (Negative); METHADONE URINE SCREEN Negative (Negative); OPIATES URINE SCREEN Negative (Negative)
[2019-06-09 13:58] LABS: Tricyclic Antidepressants POSITIVE (Negative)
[2019-06-09 14:23] VITALS: BP 149/71; PULSE 98; O2SAT 99
[2019-06-09] MEDS: LORazepam 1 MG TAB PO (14:35)
== END 2019-06-09 14:33 | disposition home or self-care (01) ==
PROVIDERS: Emergency Provider Student in an Organized Health Care Education/Training Program; PCP Nurse Practitioner Family
DX: F31.81 Bipolar II disorder (principal); R41.0 Disorientation, unspecified; I12.9 Hypertensive chronic kidney disease with stage 1 through stage 4 chronic kidney disease, or unspecified chronic kidney disease; N18.9 Chronic kidney disease, unspecified
CPT/HCPCS: 36415; 80053; 80307; 93005; 99283; 80178; 81003; 84443; 85025; 93010

== ENCOUNTER 2019-06-13 19:55 | Inpatient (IN) | payer MEDICARE, SELFPAY ==
[2019-06-13 20:00] VITALS: BP 154/65; PULSE 104; RESP 19; TEMP 36.3; O2SAT 97
--- NOTE | 2019-06-13 20:11 | ED.GENADUL_ITS ---
Discharge Plan Disposition Patient Disposition: [facility] INPATIENT Condition: Stable Discharge Details Chief Complaint: AMS/LOC Clinical Impression: Acute hypokalemia, Noncompliance with medication regimen, AMS (altered mental status) Admit Date/Time: 06/13/19 21:25 Admit Provider: Heladio Robertson Attending Provider: Heladio Robertson Primary Care Provider: Patricia Goss ED Provider: Thompson Mireles Discharge Data Discharge Date/Time-TO BE ENTERED AT DEPARTURE: 06/13/19 22:50 Medical Decision Making 79-year-old female with a past medical history of bipolar, depression, multiple episodes of ECT therapy, hypertension high cholesterol hypothyroidism who presents today for evaluation of worsening delirium, altered mental status, medication refusal and combativeness. Family states that over the last week and 1/2 to 2 weeks she has had a steady decline. She is become more depressed at home, combative, and has been gradually refusing more and more of her home medications. This is climax over the last 2 days with complete refusal of her medications, mild altered mental status, and inability to care for self, combined with the refusal to let others care for her as well. She was seen 5 days ago by care management and the plan was to get her to a facility in either [place] or [facility]. Unfortunately secondary to her declining condition, this was never enacted. She presents today by EMS with her daughter for further assessment and evaluation. Patient does not provide any additional historical components. Daughter who is at bedside denies any complaints of new cough, fever, or other abnormalities. Exam is relatively unremarkable. The patient is a and O x1 for place, moves all extremities and shows no focal neurologic deficits or meningeal signs. Lungs are difficult to auscultate secondary to patient noncompliance, however no mary rhonchi or rales are detected. Vital signs demonstrate minimal tachycardia, afebrile, stable blood pressure. Patient is demonstrating signs concerning for failure to thrive, and her mental status is likely exacerbated by her medical noncompliance, and likely compounded by depression bipolar. No clinical evidence of meningitis or encephalitis at this time. I have contacted case management discussed the case with them, especially with the previous plan for transfer to a facility for prolonged care. At this time with the patient's altered state, we will evaluate for infectious etiology, rehydrate, plan for swing bed admission. 10:30 PM Laboratory work-up is returned relatively unremarkable, no white count, electrolytes benign aside for potassium of 3.2 in the setting of a normal magnesium. We will correct the potassium. Chest x-ray read as negative per virtual radiology, urinalysis shows no evidence of significant infection. After fluids the patient does certainly have more energy, but she continues to demonstrate noncompliance, and an inability to care for herself. Family still feels that replacement is best. We have contacted case management, they agree with admission, and evaluation tomorrow for potential placement options. I did discuss the case with hospitalist Dr. Robertson, he agrees with the assessment and plan. I have extensively reviewed the treatment plan with the patient. I have addressed all patient concerns at this time. I have also discussed the plan with the admitting physician and they agree with the current assessment and plan and have agreed to assume responsibility for the patient. All parties demonstrate verbal understanding and agreement with our assessment and plan at this time. FINDINGS: Lungs: No lung infiltrates or consolidation. No pulmonary edema. Pleural space: No pleural effusions. Heart/Mediastinum: Large hiatal hernia. Vasculature: Atherosclerotic thoracic aorta without aneurysmal features. Bones/joints: Degenerative thoracic spine change. IMPRESSION: 1. Prominent hiatal hernia. 2. No lung infiltrates or edema. 3. No pleural effusions. Thank you for allowing us to participate in the care of your patient. Dictated and Authenticated by: Jordy Richards MD 06/13/2019 8:38 PM Eastern Time ([place] & [place]) HPI General Date/Time Provider Initiated Documentation: 06/13/19 19:56 . HPI Narrative: 79-year-old female with a past medical history of bipolar, depression, multiple episodes of ECT therapy, hypertension high cholesterol hypothyroidism who presents today for evaluation of worsening delirium, altered mental status, medication refusal and combativeness. Family states that over the last week and 1/2 to 2 weeks she has had a steady decline. She is become more depressed at home, combative, and has been gradually refusing more and more of her home medications. This is climax over the last 2 days with complete refusal of her medications, mild altered mental status, and inability to care for self, combined with the refusal to let others care for her as well. She was seen 5 days ago by care management and the plan was to get her to a facility in either [place] or [facility]. Unfortunately secondary to her declining condition, this was never enacted. She presents today by EMS with her daughter for further assessment and evaluation. Patient does not provide any additional historical components. Daughter who is at bedside denies any complaints of new cough, fever, or other abnormalities. Related Data Home Medications Medication Instructions Recorded Confirmed cholecalciferol (vitamin D3) 2,000 unit PO DAILY 09/18/12 06/13/19 [Vitamin D3] multivitamin 1 ea PO DAILY 09/18/12 06/13/19 acetaminophen [Tylenol Extra 500 mg PO Q6H PRN 12/31/13 06/13/19 Strength] aspirin [Aspirin Low-Strength] 81 mg PO DAILY tab.chew 12/11/14 06/13/19 amlodipine 5 mg tablet 5 mg PO DAILY #30 tab-cap 11/20/18 06/13/19 folic acid 1 mg tablet 1 mg PO DAILY #30 tab 11/20/18 06/13/19 levothyroxine 50 mcg tablet 50 mcg PO DAILY #30 tab 11/20/18 06/13/19 metoprolol succinate 50 mg 50 mg PO DAILY #30 tab-cap 11/20/18 06/13/19 tablet,extended release 24 hr pantoprazole 40 mg tablet,delayed 40 mg PO DAILY #30 tab 11/20/18 06/13/19 release ondansetron 4 mg PO Q8H PRN #10 tab 12/21/18 06/13/19 lithium carbonate 300 mg 300 mg PO QHS tab 05/16/19 06/13/19 tablet,extended release lorazepam 0.5 mg tablet 0.5 mg PO TID tab-cap 05/16/19 06/13/19 nortriptyline 50 mg capsule 50 mg PO QHS 05/16/19 06/13/19 quetiapine 50 mg tablet 100 mg PO HS tab 05/16/19 06/13/19 Previous Rx's Medication Instructions Recorded amlodipine 5 mg tablet 5 mg PO DAILY #30 tab-cap 11/20/18 folic acid 1 mg tablet 1 mg PO DAILY #30 tab 11/20/18 levothyroxine 50 mcg tablet 50 mcg PO DAILY #30 tab 11/20/18 metoprolol succinate 50 mg 50 mg PO DAILY #30 tab-cap 11/20/18 tablet,extended release 24 hr pantoprazole 40 mg tablet,delayed 40 mg PO DAILY #30 tab 11/20/18 release ondansetron 4 mg PO Q8H PRN #10 tab 12/21/18 Allergies Allergy/AdvReac Type Severity Reaction Status Date / Time fluoxetine Allergy Mild Verified 06/13/19 20:09 olanzapine Allergy Mild Verified 06/13/19 20:09 trazodone Allergy Mild Verified 06/13/19 20:09 haloperidol AdvReac Severe Contraindic Verified 06/13/19 20:09 ated Phenothiazines AdvReac Severe DYSTONIA Verified 06/13/19 20:09 General Stated Complaint: AMS/LOC GRANT: 3 Review of Systems All systems reviewed & are unremarkable except as noted in HPI and below PFSH Medical History Bipolar 2 disorder (Chronic 01/30/17) Per Dr. Heath, with severe treatment resistant dpressive phases vs treatment resistant depression 01/25/17 CKD (chronic kidney disease) Deep vein thrombosis (Resolved 12/08/13) [place] [facility] [place]Chronic) HLD (hyperlipidemia) HTN (hypertension) Hypothyroidism (Chronic 11/11/12) Tardive dyskinesia (Chronic 04/17/16) Dr. Esther Heath Dose reductions in the past have led to severe relapse of psychotic depress ion Surgical History S/P ORIF (open reduction internal fixation) fracture (Acute) Family History Brother Heart disease Stroke Brother Heart disease Other Hypertension Social History Smoking/Tobacco Use Status: Never Alcohol Intake: former Drug use: Never Substance use type: does not use Number of Children: 2 Pets and animals: Yes Pets and animals: cat(s) Current gender identity: female What type of physical activity do you participate in: walking Frequency: daily Seatbelt use: always Do you feel safe at home: Yes Do you feel safe in your relationship?: Yes Exam Narrative Exam Narrative: 1.Const: Well-nourished, elderly 2.Eyes: PERRL, no conjunctival injection, and symmetrical lids. 3.ENT: Atraumatic external nose and ears. Dry MM. Neck: Symmetric, trachea midline, No thyromegaly. No nuchal rigidity or meningeal signs. Negative Kernig's and Brudzinski's. 4.CVS: +S1/S2, No murmurs or gallops. Peripheral pulses 2+ and equal in all extremities. Brisk capillary refill in all extremities. 5.RESP: Unlabored respiratory effort. Clear to auscultation bilaterally. No wheezes rales or rhonchi 6.GI: Soft, Nontender/Nondistended, No hepatosplenomegaly. No guarding or rebound. 7.MSK: Normocephalic/Atraumatic, Extremities w/o deformity or ttp No cyanosis or clubbing, Normal movement of all extremities 8.Skin: Warm, Dry. No rashes or lesions. 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 Sensation grossly intact, no focal neurologic deficits. 10.Psych: ANO x1, mildly altered, confrontational with nursing staff, is aware of place but no other components. Notably noncompliant with requests. Does move all extremities. Course Vital Signs Vital signs: Vital Signs Temperature 36.3 C L 06/13/19 20:00 Pulse 104 H 06/13/19 20:00 Respiratory Rate 19 06/13/19 20:00 Blood Pressure 154/65 H 06/13/19 20:00 Pulse Oximetry 97 06/13/19 20:00 Temperature 36.3 C L 06/13/19 20:00 Temperature Source Skin 06/13/19 20:00 Pulse 104 H 06/13/19 20:00 Respiratory Rate 19 06/13/19 20:00 Respiratory Effort 06/13/19 20:00 Blood Pressure 154/65 H 06/13/19 20:00 Pulse Oximetry 97 06/13/19 20:00 Oxygen Delivery Method Room Air 06/13/19 20:00 Oxygen Flow Rate 0 06/13/19 20:00 Pain Level 0 06/13/19 20:00 Lab/Test Results Lab/Test Results: 06/13/19 20:05 Urine - Bladder Aspirate Urine Culture - Pending
[2019-06-13] MEDS: Normal Saline 1,000 ML 1000 ML IV (20:21)
[2019-06-13 20:22] LABS: BE (Venous) -1.6 mmol/L (-3-3); HCO3 (Venous) 24 mmol/L (22-28); O2 Sat (Venous) 69 % (70-80); TCO2 (Venous) 23 mmol/L (22-29); pCO2 (Venous) 46 mm/Hg (34-47); pH (Venous) 7.33 (7.35-7.45); pO2 (Venous) 38 mm/Hg (28-44)
[2019-06-13 20:24] LABS: Absolute Basophil Count 0.01 k/cumm (0.0-0.2); Absolute Eosinophil Count 0.19 k/cumm (0.0-0.7); Absolute Lymphocyte Count 1.82 k/cumm (1.2-3.4); Absolute Monocyte Count 0.58 k/cumm (0.11-0.7); Absolute Neutrophil Count 5.42 k/cumm (1.2-6.7); Basophils % 0.1; Eosinophils % 2.4; HGB 10.7 g/dL (12.0-15.5); Lymphocytes % 22.7; Mean Corp. HGB Concentration 31.5 g/dL (32.0-36.0); Mean Corpuscular Hemoglobin 28.2 pg (27.0-33.0); Mean Corpuscular Volume 89.5 fL (80-95); Mean Platelet Volume 8.5 fL (8.0-11.0); Monocytes % 7.2; Neutrophils % 67.6; Platelet Count 347 x1000/uL (130-400); RBC Distribution Width 15.7 % (11.7-14.6); White Blood Cell Count 8.02 k/cumm (4.4-10.8)
--- NOTE | 2019-06-13 20:25 | DI.RAD_ITS ---
EXAM: XR PORTABLE CHEST AP CLINICAL HISTORY: altered, eval for pneumonia TECHNIQUE: COMPARISON: XR CHEST 2V PA LATERAL from 05/02/2019 FINDINGS: The heart may be mildly enlarged. There is a poor inspiration. There is a large hiatal hernia. Karen gs are grossly clear. IMPRESSION: No acute process. If there is a high clinical suspicion of pneumonia follow-up PA and lateral chest could be obtained.
[2019-06-13 20:37] LABS: INR 1.1 (0.9-1.1); Prothrombin Time 10.8 sec (9.3-11.0)
--- NOTE | 2019-06-13 20:39 | DI.VRAD_ITS ---
PROCEDURE INFORMATION: Exam: XR Chest, 1 View Exam date and time: 06/13/2019 8:03 PM Age: 79 years old Clinical indication: Patient HX: Altered, eval for pneumonia TECHNIQUE: Imaging protocol: XR of the chest Views: 1 view. COMPARISON: CR XR CHEST 2V PA LATERAL 05/02/2019 9:39 AM FINDINGS: Lungs: No lung infiltrates or consolidation. No pulmonary edema. Pleural space: No pleural effusions. Heart/Mediastinum: Large hiatal hernia. Vasculature: Atherosclerotic thoracic aorta without aneurysmal features. Bones/joints: Degenerative thoracic spine change. IMPRESSION: 1. Prominent hiatal hernia. 2. No lung infiltrates or edema. 3. No pleural effusions. Dictated and Authenticated by: Jordy Richards MD. Ordering:NICKOLAS Mackay MD
[2019-06-13 20:40] LABS: Ammonia < 10 umol/L (11-32)
[2019-06-13 20:45] LABS: ALT 20 U/L (14-59); AST 16 U/L (15-37); Albumin 3.4 g/dL (3.4-5.0); Alkaline Phosphatase 80 U/L (46-116); Anion Gap 11.2 mmol/L (3-11); BUN 18 mg/dL (7-18); Bilirubin, Total 0.3 mg/dL (0.2-1.0); CO2 24.8 mmol/L (21.0-32.0); CREATININE 1.31 mg/dL (0.55-1.02); Calcium 9.1 mg/dL (8.5-10.1); Chloride 106 mmol/L (98-107); Estimated GFR 39.06 (mL/min/1.73m2); Glucose 143 mg/dL (74-106); Potassium 3.2 mmol/L (3.5-5.1); Sodium 142 mmol/L (136-145); TSH (W/Ref FT4) 3.19 uIU/mL (0.36-3.74); Total Protein 7.3 g/dL (6.4-8.2)
[2019-06-13] MEDS: POTASSIUM CHLORIDE 20 MEQ/100 ML BAG 50 MEQ IVPB (20:52)
[2019-06-13 21:07] LABS: Magnesium 2.2 mg/dL (1.8-2.4)
--- NOTE | 2019-06-13 21:14 | W.PM.HP.N ---
Date of service: 06/13/19 Time of Service: 21:14 Assessment and Plan Assessment and plan (1) Agitation: Status: Acute Assessment and plan: Agitation. No specific precipitant identified at present. May be worsening of baseline mood disorder, but will want to r/o UTI. Plan: Check urinalysis, resume usual meds in meantime.. May need psychiatric placement. History of Present Illness History of Present Illness Chief Complaint: agitation Narrative: 79 female with long h/o depression. Over past few weeks, and especially past few days, has been becoming more agitated, oppositional, and now refusing all meds. Daughter tells me this is a typical sequence when her depression is flaring, but on at least one occasion was a manifestation of a UTI. At any rate she was brought by EMS as family was no longer able to manage kellen at home. In ER initial evaluation essentially benign except for slightly low potassium of 3.2, though urine sample has yet to be obtained.No feverr, leukocytosiss and CXR negative. Case reviewed with care management and advised admission. Patient denies pain or SOB. Does not provide any other history. Review of Systems Unobtainable due to mental condition [facility] Medical History Bipolar 2 disorder (Chronic 01/30/17) Per Dr. Heath, with severe treatment resistant dpressive phases vs treatment resistant depression 01/25/17 RH CKD (chronic kidney disease) Deep vein thrombosis (Resolved 12/08/13) [place] [facility] [place]Chronic) HLD (hyperlipidemia) HTN (hypertension) Hypothyroidism (Chronic 11/11/12) Tardive dyskinesia (Chronic 04/17/16) Dr. 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 Surgical History S/P ORIF (open reduction internal fixation) fracture (Acute) Family History Brother Heart disease Stroke Brother Heart disease Other Hypertension Social History Smoking/Tobacco Use Status: Never Alcohol Intake: former Drug use: Never Substance use type: does not use Number of Children: 2 Pets and animals: Yes Pets and animals: cat(s) Current gender identity: female What type of physical activity do you participate in: walking Frequency: daily Seatbelt use: always Do you feel safe at home: Yes Do you feel safe in your relationship?: Yes Meds Home Medications and Allergies Home Medications Medication Instructions Recorded Confirmed Type cholecalciferol (vitamin D3) 2,000 unit PO DAILY 09/18/12 06/13/19 History [Vitamin D3] multivitamin 1 ea PO DAILY 09/18/12 06/13/19 History acetaminophen [Tylenol Extra 500 mg PO Q6H PRN 12/31/13 06/13/19 History Strength] aspirin [Aspirin Low-Strength] 81 mg PO DAILY tab.chew 12/11/14 06/13/19 History amlodipine 5 mg tablet 5 mg PO DAILY #30 tab-cap 11/20/18 06/13/19 Rx folic acid 1 mg tablet 1 mg PO DAILY #30 tab 11/20/18 06/13/19 Rx levothyroxine 50 mcg tablet 50 mcg PO DAILY #30 tab 11/20/18 06/13/19 Rx metoprolol succinate 50 mg 50 mg PO DAILY #30 tab-cap 11/20/18 06/13/19 Rx tablet,extended release 24 hr pantoprazole 40 mg tablet,delayed 40 mg PO DAILY #30 tab 11/20/18 06/13/19 Rx release ondansetron 4 mg PO Q8H PRN #10 tab 12/21/18 06/13/19 Rx lithium carbonate 300 mg 300 mg PO QHS tab 05/16/19 06/13/19 History tablet,extended release lorazepam 0.5 mg tablet 0.5 mg PO TID tab-cap 05/16/19 06/13/19 History nortriptyline 50 mg capsule 50 mg PO QHS 05/16/19 06/13/19 History quetiapine 50 mg tablet 100 mg PO HS tab 05/16/19 06/13/19 History Allergies Allergy/AdvReac Type Severity Reaction Status Date / Time fluoxetine Allergy Mild Verified 06/13/19 20:09 olanzapine Allergy Mild Verified 06/13/19 20:09 trazodone Allergy Mild Verified 06/13/19 20:09 haloperidol AdvReac Severe Contraindic Verified 06/13/19 20:09 ated Phenothiazines AdvReac Severe DYSTONIA Verified 06/13/19 20:09 Exam Narrative Exam Narrative: 154/65, 104, 19, 36.3. HEENT AT/NC; neck supple; lungs clear; heart RRR; abdomen soft and NT; pelvic/rectal deferred; extremities w/o edema; neuro Ox1, moves all 4s. Results Labs Result diagrams: 06/13/19 20:15 06/13/19 20:15 Labs: Laboratory Results - last 24 hr 06/13/19 06/13/19 06/13/19 20:15 20:15 20:15 WBC 8.02 RBC 3.80 L Hgb 10.7 L Hct 34.0 L MCV 89.5 MCH 28.2 MCHC 31.5 L RDW 15.7 H Plt Count 347 MPV 8.5 Immature Gran % 0.0 Neutrophils % 67.6 Lymphocytes % 22.7 Monocytes % 7.2 Eosinophils % 2.4 Basophils % 0.1 Absolute Neutrophils 5.42 Absolute Lymphocytes 1.82 Absolute Monocytes 0.58 Absolute Eosinophils 0.19 Absolute Basophils 0.01 PT INR APTT VBG pH VBG pCO2 VBG pO2 VBG HCO3 VBG Total CO2 VBG O2 Saturation VBG Base Excess Sodium 142 Potassium 3.2 L Chloride 106 Carbon Dioxide 24.8 Anion Gap 11.2 H BUN 18 Creatinine 1.31 H Estimated GFR/1.73 m2 39.06 Glucose 143 H Calcium 9.1 Magnesium Total Bilirubin 0.3 AST 16 ALT 20 Alkaline Phosphatase 80 Ammonia < 10 L Total Protein 7.3 Albumin 3.4 TSH 3.19 06/13/19 06/13/19 06/13/19 20:15 20:15 20:15 WBC RBC Hgb Hct MCV MCH MCHC RDW Plt Count MPV Immature Gran % Neutrophils % Lymphocytes % Monocytes % Eosinophils % Basophils % Absolute Neutrophils Absolute Lymphocytes Absolute Monocytes Absolute Eosinophils Absolute Basophils PT 10.8 INR 1.1 APTT 22.0 VBG pH 7.33 L VBG pCO2 46 VBG pO2 38 VBG HCO3 24 VBG Total CO2 23 VBG O2 Saturation 69 L VBG Base Excess -1.6 Sodium Potassium Chloride Carbon Dioxide Anion Gap BUN Creatinine Estimated GFR/1.73 m2 Glucose Calcium Magnesium 2.2 Total Bilirubin AST ALT Alkaline Phosphatase Ammonia Total Protein Albumin TSH Last Vital Signs Temp 36.3 C L 06/13/19 20:00 Pulse 104 H 06/13/19 20:00 Resp 19 06/13/19 20:00 BP 154/65 H 06/13/19 20:00 Pulse Ox 97 06/13/19 20:00
[2019-06-13 21:31] LABS: Bilirubin Negative (Negative); Blood Trace-lysed (Negative); Clarity Clear (Clear); Glucose Negative (Negative); Ketones Negative (Negative); Leukocyte Esterase Negative (Negative); Nitrite Negative (Negative); Urobilinogen 0.2 EU/dL (Up TO 0.2)
[2019-06-13 21:41] LABS: Bacteria Negative HPF (Negative); C & S Indicated? C&S Done As Ordered; Casts Negative LPF (Negative); Crystals Negative HPF (Negative); Epithelial Cells Negative HPF (Negative); Mucus Negative (Negative); Other Cells Rare Renal (Negative); RBC 0-2 HPF (0-2); WBC 0-2 HPF (0-5)
--- NOTE | 2019-06-13 21:57 | NUR.NOTE ---
Nursing Note: Waiting room number for admit.
[2019-06-13] MEDS: LORazepam 2 MG/ML VIAL 0.5 MG IVP (22:22)
[2019-06-13 22:40] VITALS: BP 154/65; PULSE 104; RESP 19
[2019-06-13 23:06] VITALS: BP 164/73; PULSE 101; RESP 18; TEMP 36.5; O2SAT 98
[2019-06-14] MEDS: QUEtiapine 100 MG TAB PO ×2 (00:43→19:34)
[2019-06-14 07:30] VITALS: BP 166/68; PULSE 91; RESP 18; TEMP 36.6; O2SAT 98
[2019-06-14] MEDS: Aspirin 81 MG CHEW PO (09:15)
[2019-06-14] MEDS: Levothyroxine 50 MCG TAB PO (09:15)
[2019-06-14] MEDS: amLODIPine 5 MG TAB PO (09:15)
[2019-06-14] MEDS: Metoprolol CR 50 MG TABCR PO (09:15)
[2019-06-14] MEDS: Multivitamin TAB 1 TAB PO (09:15)
[2019-06-14] MEDS: Cholecalciferol (Vitamin D3) 1,000 UNIT TAB 2000 UNITS PO (09:15)
[2019-06-14] MEDS: Folic Acid 1 MG TAB PO (09:15)
[2019-06-14] MEDS: LORazepam 0.5 MG TAB PO ×3 (09:15→19:34)
[2019-06-14] MEDS: Pantoprazole 40 MG TABCR PO (09:15)
[2019-06-14 11:41] LABS: Lithium 0.78 mmol/L (0.60-1.20)
--- NOTE | 2019-06-14 13:12 | MHPN_ITS ---
Date of service: 06/14/19 Time of Service: 13:12 Mental Health Crisis Note Presenting Issue How did you arrive at the ED and why did you come: Patient was admitted to ER 06/13 with c/c of depressive agitation. BRIJESH is conducting a follow-up assessment to determine status and appropriate discharge location. Precipitating Factors Patient is an 79yo female that resides with . Per documentation history and consultation with care staff and family members, the patient has been struggling with severe depressive agitation, confusion, and decreased ADLs / daily functioning for the past several months. These episodes typically occur in the morning and evenings and have increased in frequency and severity. It is reported by family members that the patient will occasionally exhibit repetitive and irrational behavioral patterns, become verbally aggressive and/or unresponsive, refuse to take prescribed medications, express incoherent and confused speech, and will have difficulty accurately discerning the identity of family members. These episodes are also accompanied by severe deficits in short term memory. Patient has extensive history of hospitalizations and ECT treatment. Patient denies current SI / HI, intent or plan. She denies racing thoughts, delusions, or hallucinations. Disposition BEHAVIOR: The patient is alert and responsive to questions but displays some orientation errors and mild degree of confusion and/or comprehension issues. The patient's responses are occasionally delayed and she has some measure of d ifficulty properly articulating her responses. Some degree of cognitive impairment is present and memory deficits (retention and recall) are evident. The patient is otherwise appropriate in interactions. EYE CONTACT: Patient has intermittent eye contact accompanied by prolonged vacant staring. MOOD: Depressed AFFECT: Congruent to mood APPETITE: Fluctuating appetite. SLEEP(trouble falling/staying asleep: Intermittent sleep disturbance: 4+ days (per daughter). Plan The patient's family members express concern over her ability to adequately maintain her safety and daily functioning. Based on current presentation, extensive history of prior hospitalization, and reported interference with functioning across different domains, severity is estimated to be moderate-high. Due to concerns of acuity and history of decompensation, it is recommended that patient may require in-patient level of care for stabilization and safety. Signature Clinician's Name/Title: Bryon Sandoval BA, [facility] Emergency Security Analyst
[2019-06-14] MEDS: Potassium Chloride 20 MEQ TABCR 40 MEQ PO (14:16)
--- NOTE | 2019-06-14 14:34 | PHARADMIT ---
Addendum entered by Ad Trimble III 06/19/19 14:15: Pharmacy Note Subjective Patient has improved to baseline. feels patient may not have been receiving Seroquel at home. Now that patient is receiving meds properly she has responded. Objective VS-OK [place] level 1.12 (0.6-1.2) Assessment [place] CR 450mg reduced to 300mg PO daily. Plan Patient to be discharged home, (today) with daughter. Addendum entered by Ad Trimble III 06/18/19 12:08: Pharmacy Note Subjective Patients has psychosis, speaks in word salad, per . Awaiting EE evaluation. Objective BP- 101/65 HR-86 No Labs Assessment Seroquel dose increased to 200mg at 8PM. Plan Watch for [place] level Addendum entered by Arabella Worthington 06/16/19 17:24: Pharmacy Note Subjective neuro consult ordered Objective BP-146/85 HR-103 no labs Assessment lithium dose increased to 450 mg daily lorazepam dose increased to 1 mg TID Plan waiting for placement Original Note: Admission Pharmacy Clinical Review AGITATION Code Status Full Code Current Weight 69.2 kg Renally Cleared and Narrow Therapeutic Index Meds CRCL ~25ML/MIN QTc Value / Action Taken 472 BP Control, Fever 166/68 afebrile Electrolytes reviewed K 3.2 bolus given DVT Prophylaxis no Opiate Usage / Scheduled Bowel Regimen Ordered no/no Plt/SCr for Heparin / Enoxaparin 347 INR for Warfarin 1.1 H/H stable, WBC/Bands 10.7/34.0 wbc 8.02 Antibiotic appropriateness na Cultures and Sensitivities na Surgical ABX d/c within 24 hr na DM control / Insulin Dosing na Heart Failure (Check EF%) (JOSE's, B-Block, Diuretics) IV to PO Switch Home Meds Reviewed Home Meds Not Ordered ondansetron 4 mg PO Q8H PRN #10 tab lithium carbonate 300 mg tablet,extended release 300 mg PO QHS tab lorazepam 0.5 mg tablet 0.5 mg PO TID tab-cap nortriptyline 50 mg capsule 50 mg PO QHS quetiapine 50 mg tablet 100 mg PO HS tab Comments pt refusing medications, mental health to see pt. lithium level WNL but usually runs lower for pt.
[2019-06-14 15:30] VITALS: BP 132/81; PULSE 92; RESP 18; TEMP 36.2; O2SAT 95
--- NOTE | 2019-06-14 16:02 | PGE_ITS ---
Date of Service Date of service: 06/14/19 Time of Service: 16:02 Assessment and Plan Assessment and plan (1) Agitation: Start date: 06/14/19 Start time: 16:06 Status: Acute Assessment and plan: NO UTI present. Negative nitrates and leukos. 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 Could benefit from psychiatric inpatient stay. to see, waiting to hear back from [facility] and [facility] [place] for [place] status. Above case discussed with Dr. Pinzon who is in agreement. Subjective Subjective Patient reports: other Interval history since last seen: continues to be confused. Not agitated at the time of evaluation, though she can not recall facts such as her daughters name who is sitting beside her. evaluated her today. Awaiting to see if [facility] or [facility] will admit her to psychiatric services as they are familiar with her. Exam Narrative Exam Narrative: Const: Sitting in chair doing crossword puzzle Eyes: PERRLA, EOMI Neck: no lymphedema or goiter Resp: clear, even unlabored breath sounds Cardio: RRR no murmur appreciated. GI: abd soft nontender, bsx 4 Neuro: confused, does not recognize where she is or who is in the room. Objective Objective Clinical Data: Abnormal lab results 06/13/19 06/13/19 06/13/19 Range/Units 20:15 20:15 20:15 RBC 3.80 L (4.00-5.20) m/cumm Hgb 10.7 L (12.0-15.5) g/dL Hct 34.0 L (36.0-46.0) % MCHC 31.5 L (32.0-36.0) g/dL RDW 15.7 H (11.7-14.6) % VBG pH (7.35-7.45) VBG O2 Saturation (70-80) % Potassium 3.2 L (3.5-5.1) mmol/L Anion Gap 11.2 H (3-11) mmol/L Creatinine 1.31 H (0.55-1.02) mg/dL Glucose 143 H (74-106) mg/dL Ammonia < 10 L (11-32) umol/L Urine Blood (Negative) 06/13/19 06/13/19 Range/Units 20:15 21:25 RBC (4.00-5.20) m/cumm Hgb (12.0-15.5) g/dL Hct (36.0-46.0) % MCHC (32.0-36.0) g/dL RDW (11.7-14.6) % VBG pH 7.33 L (7.35-7.45) VBG O2 Saturation 69 L (70-80) % Potassium (3.5-5.1) mmol/L Anion Gap (3-11) mmol/L Creatinine (0.55-1.02) mg/dL Glucose (74-106) mg/dL Ammonia (11-32) umol/L Urine Blood Trace-lysed H (Negative) Vital Signs Temperature 36.2 C L 06/14/19 15:30 Temperature Source Tympanic 06/14/19 15:30 Pulse 92 H 06/14/19 15:30 Pulse Rhythm Regular 06/14/19 10:54 Respiratory Rate 18 06/14/19 15:30 Respiratory Effort 06/14/19 10:54 Respiratory Depth Normal 06/14/19 10:54 Respiratory Pattern Normal 06/14/19 10:54 Blood Pressure 132/81 06/14/19 15:30 Pulse Oximetry 95 06/14/19 15:30 Oxygen Delivery Method Room Air 06/14/19 15:30 Oxygen Flow Rate 0 06/14/19 15:30 Pain Level 0 06/14/19 07:30 Comment 06/14/19 00:19 Intake & Output 06/13/19 06/14/19 06/14/19 23:59 11:59 23:59 Intake Total 1000 / 1000 Output Total 650 / 650 Balance 350 / 350 Weight 73.2 kg 69.2 kg Intake: IV 1000 / 1000 Output: Urine 650 / 650 Other: Urine Color Pale Yellow Yellow Urine Appearance Clear Comment voided in toilet Voiding Methods Toilet Incontinent Laboratory Results WBC 8.02 k/cumm (4.4-10.8) 06/13/19 20:15 RBC 3.80 m/cumm (4.00-5.20) L 06/13/19 20:15 Hgb 10.7 g/dL (12.0-15.5) L 06/13/19 20:15 Hct 34.0 % (36.0-46.0) L 06/13/19 20:15 MCV 89.5 fL (80-95) 06/13/19 20:15 MCH 28.2 pg (27.0-33.0) 06/13/19 20:15 MCHC 31.5 g/dL (32.0-36.0) L 06/13/19 20:15 RDW 15.7 % (11.7-14.6) H 06/13/19 20:15 Plt Count 347 x1000/uL (130-400) 06/13/19 20:15 MPV 8.5 fL (8.0-11.0) 06/13/19 20:15 Immature Gran % 0.0 % 06/13/19 20:15 Neutrophils % 67.6 06/13/19 20:15 Lymphocytes % 22.7 06/13/19 20:15 Monocytes % 7.2 06/13/19 20:15 Eosinophils % 2.4 06/13/19 20:15 Basophils % 0.1 06/13/19 20:15 Absolute Neutrophils 5.42 k/cumm (1.2-6.7) 06/13/19 20:15 Absolute Lymphocytes 1.82 k/cumm (1.2-3.4) 06/13/19 20:15 Absolute Monocytes 0.58 k/cumm (0.11-0.7) 06/13/19 20:15 Absolute Eosinophils 0.19 k/cumm (0.0-0.7) 06/13/19 20:15 Absolute Basophils 0.01 k/cumm (0.0-0.2) 06/13/19 20:15 PT 10.8 sec (9.3-11.0) 06/13/19 20:15 INR 1.1 (0.9-1.1) 06/13/19 20:15 APTT 22.0 sec (21.0-31.4) 06/13/19 20:15 VBG pH 7.33 (7.35-7.45) L 06/13/19 20:15 VBG pCO2 46 mm/Hg (34-47) 06/13/19 20:15 VBG pO2 38 mm/Hg (28-44) 06/13/19 20:15 VBG HCO3 24 mmol/L (22-28) 06/13/19 20:15 VBG Total CO2 23 mmol/L (22-29) 06/13/19 20:15 VBG O2 Saturation 69 % (70-80) L 06/13/19 20:15 VBG Base Excess -1.6 mmol/L (-3-3) 06/13/19 20:15 Sodium 142 mmol/L (136-145) 06/13/19 20:15 Potassium 3.2 mmol/L (3.5-5.1) L 06/13/19 20:15 Chloride 106 mmol/L (98-107) 06/13/19 20:15 Carbon Dioxide 24.8 mmol/L (21.0-32.0) 06/13/19 20:15 Anion Gap 11.2 mmol/L (3-11) H 06/13/19 20:15 BUN 18 mg/dL (7-18) 06/13/19 20:15 Creatinine 1.31 mg/dL (0.55-1.02) H 06/13/19 20:15 Estimated GFR/1.73 m2 39.06 (mL/min/1.73m2) 06/13/19 20:15 Glucose 143 mg/dL (74-106) H 06/13/19 20:15 Calcium 9.1 mg/dL (8.5-10.1) 06/13/19 20:15 Magnesium 2.2 mg/dL (1.8-2.4) 06/13/19 20:15 Total Bilirubin 0.3 mg/dL (0.2-1.0) 06/13/19 20:15 AST 16 U/L (15-37) 06/13/19 20:15 ALT 20 U/L (14-59) 06/13/19 20:15 Alkaline Phosphatase 80 U/L (46-116) 06/13/19 20:15 Ammonia < 10 umol/L (11-32) L 06/13/19 20:15 Total Protein 7.3 g/dL (6.4-8.2) 06/13/19 20:15 Albumin 3.4 g/dL (3.4-5.0) 06/13/19 20:15 TSH 3.19 uIU/mL (0.36-3.74) 06/13/19 20:15 Urine Color Yellow (Yellow) 06/13/19 21:25 Urine Clarity Clear (Clear) 06/13/19 21:25 Urine pH 7.0 (5-8) 06/13/19 21:25 Ur Specific [place] 1.010 (1.005-1.025) 06/13/19 21:25 Urine Protein Negative mg/dL (Negative) 06/13/19 21:25 Urine Ketones Negative mg/dL (Negative) 06/13/19 21:25 Urine Blood Trace-lysed (Negative) H 06/13/19 21:25 Urine Nitrite Negative (Negative) 06/13/19 21:25 Urine Bilirubin Negative (Negative) 06/13/19 21:25 Urine Urobilinogen 0.2 EU/dL (Up TO 0.2) 06/13/19 21:25 Ur Leukocyte Esterase Negative (Negative) 06/13/19 21:25 Urine RBC 0-2 HPF (0-2) 06/13/19 21:25 Urine WBC 0-2 HPF (0-5) 06/13/19 21:25 Ur Epithelial Cells Negative HPF (Negative) 06/13/19 21:25 Urine Crystals Negative HPF (Negative) 06/13/19 21:25 Urine Bacteria Negative HPF (Negative) 06/13/19 21:25 Urine Casts Negative LPF (Negative) 06/13/19 21:25 Urine Mucus Negative (Negative) 06/13/19 21:25 Urine Other Rare renal (Negative) 06/13/19 21:25 Ur Culture Indicated? C&s done as ordered 06/13/19 21:25 Urine Glucose Negative mg/dL (Negative) 06/13/19 21: [place] 0.78 mmol/L (0.60-1.20) 06/14/19 11:15
--- NOTE | 2019-06-14 19:11 | PDOC.CMIN ---
- If Service Date Differs Date of service: 06/14/19 Time of Service: 19:11 Care Management Initial Assess REASON FOR HOSPITALIZATION:: Agitation PAST MEDICAL HISTORY/PAST SURGICAL HISTORY:: Medical History: Bipolar 2 disorder (Chronic 01/30/17) - Per Dr. 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 Dr. Esther Heath - Dose reductions in the past have led to severe relapse of psychotic depression. No surgical history of record. PREVIOUS FUNCTIONAL STATUS/SOCIAL/FAMILY SUPPORTS:: Stacy resides in [facility] with her , Lalito. The couple has two adult children who live locally and are sources of support for Stacy and her . At the daughter's report, Stacy is independent with her ADLs at baseline. Her does the grocery shopping and cooking at home and drives Stacy to appointments. Stacy helps clean the house and enjoys doing word searching and reading. CURRENT FUNCTIONAL STATUS:: Stacy was sitting up in her chair when CM met with her. She reported that she 'doesn't remember anything'. She presents confused and disoriented. Her daughter, Lluvia, who is her legal guardian, was in the room with her. She reported that her mother has not been back to her baseline since prior to her last admission, in Apr 2019. Lluvia reported that she has been staying with her since she discharged on 05/07/2019, and that her mother has had increasing symptoms of agitation and anxiety, which are worse at night. She asked CM if psyciatric stabilization would be explored on this admission. CM consulted [facility] for Stacy to be evaluated. [facility]errals were sent to [facility] and [facility] [place] [facility] [place] and [facility] do not have bed availability. [facility] [place] due to lack of acute pyschosis, per reports. CM will continue to follow. ADVANCE DIRECTIVES:: On file at [facility]; Poncho Orosco is agent and daughter Lluvia Briceno is alternate agent. Lluvia is Stacy's legal guardian. Has patient been provided with information about the portal?: No Did the patient sign up for the portal?: No CODE STATUS:: Full Code INSURANCE COVERAGE / FINANCIAL ISSUES:: MCR/ AARP CURRENT HOME/COMMUNITY SERVICES/EQUIPMENT:: Patient sees Marita Monsalve aprn, at [facility]. Patient has no other community services or DME per her daughter. PRIMARY CARE PHYSICIAN:: Patricia Goss aprn ([facility]) POTENTIAL DISCHARGE NEEDS:: Follow-up appointment with PCP, [facility], and plan of care. PATIENT/FAMILY EDUCATION NEEDS:: Review discharge instructions regarding medications, follow up plan and self management. ANTICIPATED BARRIERS TO DISCHARGE:: Lack of acceptance or bed availability at psychiatric facility, family having difficulty managing Stacy at home. TRANSPORTATION:: Anticipate via private vehicle by family PLAN:: CM supporting provider and [facility] disc pad knockout worker in order to create plan of care for Stacy, including placement at psychiatric facility, if accepted. Plan to be determined based on bed availability and acceptance. Outpatient follow up for mental health needs including counceling at [facility]. CM will continue to follow and support discharge planning considerations.
[2019-06-14 19:40] VITALS: BP 134/87; PULSE 92; RESP 18; TEMP 36.7; O2SAT 96
[2019-06-15 03:10] VITALS: BP 146/78; PULSE 85; RESP 17; TEMP 36.6; O2SAT 99
[2019-06-15] MEDS: Levothyroxine 50 MCG TAB PO (06:22)
[2019-06-15 07:30] VITALS: BP 164/83; PULSE 78; RESP 20; TEMP 36.3; O2SAT 91
[2019-06-15] MEDS: Aspirin 81 MG CHEW PO (07:52)
[2019-06-15] MEDS: Folic Acid 1 MG TAB PO (07:52)
[2019-06-15] MEDS: Pantoprazole 40 MG TABCR PO (07:52)
[2019-06-15] MEDS: LORazepam 0.5 MG TAB PO ×3 (07:52→19:21)
[2019-06-15] MEDS: amLODIPine 5 MG TAB PO (07:52)
[2019-06-15] MEDS: Cholecalciferol (Vitamin D3) 1,000 UNIT TAB 2000 UNITS PO (07:52)
[2019-06-15] MEDS: Metoprolol CR 50 MG TABCR PO (07:52)
[2019-06-15] MEDS: Multivitamin TAB 1 TAB PO (07:52)
--- NOTE | 2019-06-15 11:16 | W.PM.PROGNOT ---
Date of Service Date of service: 06/15/19 Time of Service: 11:16 Assessment and Plan Assessment and plan (1) Agitation: Status: Acute Assessment and plan: At this time she continues to be calm but delusional. Question dementia vs psychosis. No agitation at the moment. Brushing hair will consult neurology to r/o neuro diagnosis. Above case discussed with Dr. Pinzon who is in agreement. Subjective Subjective Patient reports: other Interval history since last seen: Continues to be delusional, can not answer questions appropriately. Questioning underlying dementia. Will consult neuro for psychosis vs dementia. Exam Narrative Exam Narrative: Const: Sitting in chair brushing hair Eyes: PERRLA, EOMI Neck: no lymphedema or goiter Resp: clear, even unlabored breath sounds Cardio: RRR no murmur appreciated. GI: abd soft nontender, bsx 4 Neuro: confused, does not recognize where she is or who is in the room. Objective Objective Clinical Data: Vital Signs Temperature 36.3 C L 06/15/19 07:30 Temperature Source Temporal Artery Scan 06/15/19 07:30 Pulse 78 06/15/19 07:30 Pulse Rhythm Regular 06/15/19 09:41 Respiratory Rate 20 06/15/19 07:30 Respiratory Effort 06/15/19 09:41 Respiratory Depth Normal 06/15/19 09:41 Respiratory Pattern Normal 06/15/19 09:41 Blood Pressure 164/83 H 06/15/19 07:30 Pulse Oximetry 91 L 06/15/19 07:30 Oxygen Delivery Method Room Air 06/15/19 07:30 Oxygen Flow Rate 0 06/15/19 07:30 Pain Level 2 06/15/19 07:30 Comment 06/14/19 00:19 Intake & Output 06/14/19 06/14/19 06/15/19 11:59 23:59 11:59 Intake Total 100 / 340 240 / 340 600 / 600 Output Total 200 / 200 600 / 600 Balance 100 / 140 40 / 140 0 / 0 Weight 69.2 kg Intake: Oral 100 / 340 240 / 340 600 / 600 Output: Urine 200 / 200 600 / 600 Other: Urine Color Yellow Yellow Yellow Urine Appearance Clear Clear Clear Urine Odor None None Comment voided in toilet 11,42,20 Voiding Methods Toilet Toilet Toilet Incontinent Laboratory Results WBC 8.02 k/cumm (4.4-10.8) 06/13/19 20:15 RBC 3.80 m/cumm (4.00-5.20) L 06/13/19 20:15 Hgb 10.7 g/dL (12.0-15.5) L 06/13/19 20:15 Hct 34.0 % (36.0-46.0) L 06/13/19 20:15 MCV 89.5 fL (80-95) 06/13/19 20:15 MCH 28.2 pg (27.0-33.0) 06/13/19 20:15 MCHC 31.5 g/dL (32.0-36.0) L 06/13/19 20:15 RDW 15.7 % (11.7-14.6) H 06/13/19 20:15 Plt Count 347 x1000/uL (130-400) 06/13/19 20:15 MPV 8.5 fL (8.0-11.0) 06/13/19 20:15 Immature Gran % 0.0 % 06/13/19 20:15 Neutrophils % 67.6 06/13/19 20:15 Lymphocytes % 22.7 06/13/19 20:15 Monocytes % 7.2 06/13/19 20:15 Eosinophils % 2.4 06/13/19 20:15 Basophils % 0.1 06/13/19 20:15 Absolute Neutrophils 5.42 k/cumm (1.2-6.7) 06/13/19 20:15 Absolute Lymphocytes 1.82 k/cumm (1.2-3.4) 06/13/19 20:15 Absolute Monocytes 0.58 k/cumm (0.11-0.7) 06/13/19 20:15 Absolute Eosinophils 0.19 k/cumm (0.0-0.7) 06/13/19 20:15 Absolute Basophils 0.01 k/cumm (0.0-0.2) 06/13/19 20:15 PT 10.8 sec (9.3-11.0) 06/13/19 20:15 INR 1.1 (0.9-1.1) 06/13/19 20:15 APTT 22.0 sec (21.0-31.4) 06/13/19 20:15 VBG pH 7.33 (7.35-7.45) L 06/13/19 20:15 VBG pCO2 46 mm/Hg (34-47) 06/13/19 20:15 VBG pO2 38 mm/Hg (28-44) 06/13/19 20:15 VBG HCO3 24 mmol/L (22-28) 06/13/19 20:15 VBG Total CO2 23 mmol/L (22-29) 06/13/19 20:15 VBG O2 Saturation 69 % (70-80) L 06/13/19 20:15 VBG Base Excess -1.6 mmol/L (-3-3) 06/13/19 20:15 Sodium 142 mmol/L (136-145) 06/13/19 20:15 Potassium 3.2 mmol/L (3.5-5.1) L 06/13/19 20:15 Chloride 106 mmol/L (98-107) 06/13/19 20:15 Carbon Dioxide 24.8 mmol/L (21.0-32.0) 06/13/19 20:15 Anion Gap 11.2 mmol/L (3-11) H 06/13/19 20:15 BUN 18 mg/dL (7-18) 06/13/19 20:15 Creatinine 1.31 mg/dL (0.55-1.02) H 06/13/19 20:15 Estimated GFR/1.73 m2 39.06 (mL/min/1.73m2) 06/13/19 20:15 Glucose 143 mg/dL (74-106) H 06/13/19 20:15 Calcium 9.1 mg/dL (8.5-10.1) 06/13/19 20:15 Magnesium 2.2 mg/dL (1.8-2.4) 06/13/19 20:15 Total Bilirubin 0.3 mg/dL (0.2-1.0) 06/13/19 20:15 AST 16 U/L (15-37) 06/13/19 20:15 ALT 20 U/L (14-59) 06/13/19 20:15 Alkaline Phosphatase 80 U/L (46-116) 06/13/19 20:15 Ammonia < 10 umol/L (11-32) L 06/13/19 20:15 Total Protein 7.3 g/dL (6.4-8.2) 06/13/19 20:15 Albumin 3.4 g/dL (3.4-5.0) 06/13/19 20:15 TSH 3.19 uIU/mL (0.36-3.74) 06/13/19 20:15 Urine Color Yellow (Yellow) 06/13/19 21:25 Urine Clarity Clear (Clear) 06/13/19 21:25 Urine pH 7.0 (5-8) 06/13/19 21:25 Ur Specific [place] 1.010 (1.005-1.025) 06/13/19 21:25 Urine Protein Negative mg/dL (Negative) 06/13/19 21:25 Urine Ketones Negative mg/dL (Negative) 06/13/19 21: Urine Blood Trace-lysed (Negative) H 06/13/19 21:25 Urine Nitrite Negative (Negative) 06/13/19 21: Urine Bilirubin Negative (Negative) 06/13/19 21: Urine Urobilinogen 0.2 EU/dL (Up TO 0.2) 06/13/19 21:25 Ur Leukocyte Esterase Negative (Negative) 06/13/19 21:25 Urine RBC 0-2 HPF (0-2) 06/13/19 21:25 Urine WBC 0-2 HPF (0-5) 06/13/19 21:25 Ur Epithelial Cells Negative HPF (Negative) 06/13/19 21:25 Urine Crystals Negative HPF (Negative) 06/13/19 21:25 Urine Bacteria Negative HPF (Negative) 06/13/19 21:25 Urine Casts Negative LPF (Negative) 06/13/19 21:25 Urine Mucus Negative (Negative) 06/13/19 21:25 Urine Other Rare renal (Negative) 06/13/19 21:25 Ur Culture Indicated? C&s done as ordered 06/13/19 21:25 Urine Glucose Negative mg/dL (Negative) 06/13/19 21:25 [place] 0.78 mmol/L (0.60-1.20) 06/14/19 11:15
[2019-06-15 15:30] VITALS: BP 154/84; PULSE 88; RESP 18; TEMP 36.8; O2SAT 94
[2019-06-15] MEDS: QUEtiapine 100 MG TAB PO (19:21)
[2019-06-15 19:29] VITALS: BP 155/83; PULSE 102; RESP 24; TEMP 36.5; O2SAT 97
--- NOTE | 2019-06-15 21:02 | CMPROGNOTE_ITS ---
- If Service Date Differs Date of service: 06/15/19 Time of Service: 21:02 Care Management Progress Note S/O: Per provider, Stacy is calm but continues to be delusional. Neurology consult ordered to r/o dementia. CM to call [facility] [place] if symptoms worsen to discuss inpatient psychiatric admission. CM will also follow up with [facility], [facility], [facility], and [facility]. CM will continue to follow. A: Stacy is an 79 year old female admitted to [facility] on 06/13/2019 for agitation. P: Anticipate Stacy will return home vs be admitted to inpatient psychiatric facility, depending on bed availability and acceptance. If home, CM will contact [facility] for wrap around support in the community. Neuro consulted to r/o dementia. Transportation TBD by disposition. CM will continue to follow and support pt, family and staff with discharge planning considerations.
[2019-06-16] MEDS: Levothyroxine 50 MCG TAB PO (05:03)
[2019-06-16 05:29] VITALS: BP 107/70; PULSE 91; RESP 18; TEMP 36.2; O2SAT 98
[2019-06-16 07:15] VITALS: BP 127/82; PULSE 95; RESP 20; TEMP 36.4; O2SAT 96
[2019-06-16] MEDS: Folic Acid 1 MG TAB PO (08:26)
[2019-06-16] MEDS: Cholecalciferol (Vitamin D3) 1,000 UNIT TAB 2000 UNITS PO (08:26)
[2019-06-16] MEDS: amLODIPine 5 MG TAB PO (08:27)
[2019-06-16] MEDS: Pantoprazole 40 MG TABCR PO (08:27)
[2019-06-16] MEDS: LORazepam 0.5 MG TAB PO ×3 (08:27→15:08)
[2019-06-16] MEDS: Metoprolol CR 50 MG TABCR PO (08:27)
[2019-06-16] MEDS: Aspirin 81 MG CHEW PO (08:27)
[2019-06-16] MEDS: Multivitamin TAB 1 TAB PO (08:27)
[2019-06-16] MEDS: LORazepam 2 MG/ML VIAL 0.5 MG IM/IVP (08:43)
[2019-06-16] MEDS: Normal Saline Flush 10 ML SYR IVP ×2 (08:43→19:22)
--- NOTE | 2019-06-16 10:05 | W.PM.PROGNOT ---
Date of Service Date of service: 06/16/19 Time of Service: 10:06 Assessment and Plan Assessment and plan (1) Agitation: Start date: 06/16/19 Start time: 10:08 Status: Acute Assessment and plan: At this time patient is agitated and confused. Allows assessment, but continues to rock and talk in sentences. unable to make sense of what she is saying. Given IVP ativan additionally to PO for anxiety. Above case discussed with Dr. Pinzon who is in agreement. Subjective Subjective Patient reports: other Interval history since last seen: Agitated this morning. Not making much sense with words. Keeps repeating sentences. Ativan po given, without relief of anxiety additional IVP given. Awaiting to hear back from inpatient psych facilities. Also waiting psych consult. Continue to monitor. Exam Narrative Exam Narrative: Const: Sitting in chair rocking agitated, unable to make out what patient is saying just repeating sentences over and over. Eyes: PERRLA, EOMI Neck: no lymphedema or goiter Resp: clear, even unlabored breath sounds Cardio: RRR no murmur appreciated. GI: abd soft nontender, bsx 4 Neuro: confused, agitated. Objective Objective Clinical Data: Vital Signs Temperature 36.2 C L 06/16/19 05:29 Temperature Source Tympanic 06/16/19 05:29 Pulse 91 H 06/16/19 05:29 Pulse Rhythm Regular 06/16/19 09:51 Respiratory Rate 18 06/16/19 05:29 Respiratory Effort Non-Labored 06/16/19 09:51 Respiratory Depth Normal 06/16/19 09:51 Respiratory Pattern Normal 06/16/19 09:51 Blood Pressure 107/70 06/16/19 05:29 Pulse Oximetry 98 06/16/19 05:29 Oxygen Delivery Method Room Air 06/16/19 05:29 Oxygen Flow Rate 0 06/16/19 05:29 Pain Level 0 06/16/19 05:29 Comment 06/14/19 00:19 Intake & Output 06/15/19 06/15/19 06/16/19 11:59 23:59 11:59 Intake Total 600 / 1640 1040 / 1640 500 / 500 Output Total 600 / 1700 1100 / 1700 400 / 400 Balance 0 / -60 -60 / -60 100 / 100 Intake: Oral 600 / 1640 1040 / 1640 500 / 500 Output: Urine 600 / 1700 1100 / 1700 400 / 400 Other: Urine Color Yellow Yellow Yellow Urine Appearance Clear Clear Clear Urine Odor None Normal Normal Comment 11,42,20 Stool Size Moderate Stool Characteristics Soft Formed Voiding Methods Toilet Toilet Toilet Laboratory Results WBC 8.02 k/cumm (4.4-10.8) 06/13/19 20:15 RBC 3.80 m/cumm (4.00-5.20) L 06/13/19 20:15 Hgb 10.7 g/dL (12.0-15.5) L 06/13/19 20:15 Hct 34.0 % (36.0-46.0) L 06/13/19 20:15 MCV 89.5 fL (80-95) 06/13/19 20:15 MCH 28.2 pg (27.0-33.0) 06/13/19 20:15 MCHC 31.5 g/dL (32.0-36.0) L 06/13/19 20:15 RDW 15.7 % (11.7-14.6) H 06/13/19 20:15 Plt Count 347 x1000/uL (130-400) 06/13/19 20:15 MPV 8.5 fL (8.0-11.0) 06/13/19 20:15 Immature Gran % 0.0 % 06/13/19 20:15 Neutrophils % 67.6 06/13/19 20:15 Lymphocytes % 22.7 06/13/19 20:15 Monocytes % 7.2 06/13/19 20:15 Eosinophils % 2.4 06/13/19 20:15 Basophils % 0.1 06/13/19 20:15 Absolute Neutrophils 5.42 k/cumm (1.2-6.7) 06/13/19 20:15 Absolute Lymphocytes 1.82 k/cumm (1.2-3.4) 06/13/19 20:15 Absolute Monocytes 0.58 k/cumm (0.11-0.7) 06/13/19 20:15 Absolute Eosinophils 0.19 k/cumm (0.0-0.7) 06/13/19 20:15 Absolute Basophils 0.01 k/cumm (0.0-0.2) 06/13/19 20:15 PT 10.8 sec (9.3-11.0) 06/13/19 20:15 INR 1.1 (0.9-1.1) 06/13/19 20:15 APTT 22.0 sec (21.0-31.4) 06/13/19 20:15 VBG pH 7.33 (7.35-7.45) L 06/13/19 20:15 VBG pCO2 46 mm/Hg (34-47) 06/13/19 20:15 VBG pO2 38 mm/Hg (28-44) 06/13/19 20:15 VBG HCO3 24 mmol/L (22-28) 06/13/19 20:15 VBG Total CO2 23 mmol/L (22-29) 06/13/19 20:15 VBG O2 Saturation 69 % (70-80) L 06/13/19 20:15 VBG Base Excess -1.6 mmol/L (-3-3) 06/13/19 20:15 Sodium 142 mmol/L (136-145) 06/13/19 20:15 Potassium 3.2 mmol/L (3.5-5.1) L 06/13/19 20:15 Chloride 106 mmol/L (98-107) 06/13/19 20:15 Carbon Dioxide 24.8 mmol/L (21.0-32.0) 06/13/19 20:15 Anion Gap 11.2 mmol/L (3-11) H 06/13/19 20:15 BUN 18 mg/dL (7-18) 06/13/19 20:15 Creatinine 1.31 mg/dL (0.55-1.02) H 06/13/19 20:15 Estimated GFR/1.73 m2 39.06 (mL/min/1.73m2) 06/13/19 20:15 Glucose 143 mg/dL (74-106) H 06/13/19 20:15 Calcium 9.1 mg/dL (8.5-10.1) 06/13/19 20:15 Magnesium 2.2 mg/dL (1.8-2.4) 06/13/19 20:15 Total Bilirubin 0.3 mg/dL (0.2-1.0) 06/13/19 20:15 AST 16 U/L (15-37) 06/13/19 20:15 ALT 20 U/L (14-59) 06/13/19 20:15 Alkaline Phosphatase 80 U/L (46-116) 06/13/19 20:15 Ammonia < 10 umol/L (11-32) L 06/13/19 20:15 Total Protein 7.3 g/dL (6.4-8.2) 06/13/19 20:15 Albumin 3.4 g/dL (3.4-5.0) 06/13/19 20:15 TSH 3.19 uIU/mL (0.36-3.74) 06/13/19 20:15 Urine Color Yellow (Yellow) 06/13/19 21:25 Urine Clarity Clear (Clear) 06/13/19 21: Urine pH 7.0 (5-8) 06/13/19 21:25 Ur Specific [place] 1.010 (1.005-1.025) 06/13/19 21:25 Urine Protein Negative mg/dL (Negative) 06/13/19 21: Urine Ketones Negative mg/dL (Negative) 06/13/19 21:25 Urine Blood Trace-lysed (Negative) H 06/13/19 21:25 Urine Nitrite Negative (Negative) 06/13/19 21: Urine Bilirubin Negative (Negative) 06/13/19 21: Urine Urobilinogen 0.2 EU/dL (Up TO 0.2) 06/13/19 21:25 Ur Leukocyte Esterase Negative (Negative) 06/13/19 21:25 Urine RBC 0-2 HPF (0-2) 06/13/19 21:25 Urine WBC 0-2 HPF (0-5) 06/13/19 21:25 Ur Epithelial Cells Negative HPF (Negative) 06/13/19 21:25 Urine Crystals Negative HPF (Negative) 06/13/19 21:25 Urine Bacteria Negative HPF (Negative) 06/13/19 21:25 Urine Casts Negative LPF (Negative) 06/13/19 21:25 Urine Mucus Negative (Negative) 06/13/19 21:25 Urine Other Rare renal (Negative) 06/13/19 21:25 Ur Culture Indicated? C&s done as ordered 06/13/19 21: Urine Glucose Negative mg/dL (Negative) 06/13/19 21: [place] 0.78 mmol/L (0.60-1.20) 06/14/19 11:15
[2019-06-16 10:38] VITALS: O2SAT 97
--- NOTE | 2019-06-16 12:10 | W.NUTCONSULT ---
Date of service: 06/16/19 Time of Service: 12:10 Nutritional Consult ASSESSMENT: 79 year old female admitted for agitation, placement pending. BMI on high end of normal for age. Following regular meal plan with adequate intake. Not considered at nutritional risk at this time. MONITORING AND EVALUATION: po intake, weight, labs Time Spent in Nutritional Counseling and Treatment: 0 time spent face to face
--- NOTE | 2019-06-16 13:09 | NCONE_ITS ---
Date of service: 06/16/19 Time of Service: 13:09 Assessment and Plan Assessment and plan (1) Agitation: Status: Acute (2) Psychosis: Status: Acute Assessment and plan: Ms. Orosco is an 79-year-old woman of unknown handedness with a history of poorly controlled bipolar depression and anxiety who presents with a one-month history of progressive depression and agitation. Neurology was consulted with concerns of whether she could be developing dementia and/or her symptoms could be a manifestation of dementia. Her cognitive testing and neurological and physical exam were all somewhat limited due to acute psychosis. Based on these limited findings and review of her history, I cannot find any supportive documentation of a progressive or late stage dementia. Her symptoms are atypical of an acute dementing state. Given history of similar presentations which were felt to be psychiatric and responded to psychiatric treatments, I would again pursue psychiatric treatment. If she does not improve with psychiatric treatments, she should be referred back to neurology for further evaluation. Please call with any further questions or concerns. DISCLAIMER: This note was created using [employer] voice recognition software. History of Present Illness History of Present Illness Chief Complaint: altered mental status Narrative: Handedness: unknown. HPI: Ms. Orosco is an 79 year-old woman with a past medical history of hyper tension, hyperlipidemia, chronic kidney disease, hypothyroidism, remote DVT not on anticoagulation, and bipolar disorder complicated by depression s/p remote ECT as well as tardive dyskinesia. Ms. Orosco has a long history of bipolar disorder and major depression with disassociative features with multiple extended previous inpatient psychiatric hospitalizations throughout her life. Her most recent hospitalization occurred summer 2017 which include medication adjustments and ECT treatments. This past summer 2018, Ms. Orosco's anxiety began increasing, likely in relation to the skilled nursing of her longtime psychiatrist Dr. Heath. Beginning in April, she has become increasingly confused and especially agitated at times. She was briefly admitted in mid April at which time she was found to have a UTI and mild dehydration. She has had 2 further ER visits since for altered mental status and agitation and was ultimately admitted on 06/13/2018 for this as well as refusal to take any of her medications. Throughout these visits, she has had numerous testing including normal CBC, CMP, TSH, and UA. She did a urine drug screen on 06/09/2019 which showed positive try cyclic antidepressants. She did a lithium level on 06/14/2019 which was 0.78. She had a CT head on 05/02/2019 which I was able to review personally. She has no significant atrophy but does have mild to moderate chronic white matter disease changes. There are no acute findings. I compared these images with her images from 01/11/2019 and do not see any changes. Prior to April, she was living with her daughter but quite capable in her ADLs and IADLs per report. In review of her PCP notes from the last 2 years, I cannot find any mention of memory problems or concerns about memory. Per hospitalization notes, daughter has reported that current symptoms are consistent with psychiatric breaks in the past. Consults Requesting physician: Linda Bell Review of Systems Unobtainable due to mental status [facility] Medical History Bipolar 2 disorder (Chronic 01/30/17) Per Dr. 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 Surgical History S/P ORIF (open reduction internal fixation) fracture (Acute) Family History Brother Heart disease Stroke Brother Heart disease Other Hypertension Social History Smoking/Tobacco Use Status: Never Alcohol Intake: former Drug use: Never Substance use type: does not use Number of Children: 2 Pets and animals: Yes Pets and animals: cat(s) Current gender identity: female What type of physical activity do you participate in: walking Frequency: daily Seatbelt use: always Do you feel safe at home: Yes Do you feel safe in your relationship?: Yes Visit Medication and Allergies Active Medications Generic Name Dose Route Start Last Admin Trade Name Freq PRN Reason Stop Dose Admin Acetaminophen 650 mg 06/13/19 21:24 Tylenol PO Q4H PRN PRN Amlodipine Besylate 5 mg 06/14/19 08:30 06/16/19 08:27 Norvasc PO 5 mg DAILY [facility] Administration Aspirin 81 mg 06/14/19 08:30 06/16/19 08:27 PO 81 mg DAILY MEÑO Administration Cholecalciferol 2,000 units 06/14/19 08:30 06/16/19 08:26 Vitamin D PO 2,000 units DAILY [facility] Administration Dimethicone/Zinc Oxide 0 gm 06/13/19 21:24 Norman Protect Cream TP PRN PRN Folic Acid 1 mg 06/14/19 08:30 06/16/19 08:26 Folate PO 1 mg DAILY [facility] Administration IV Miscellaneous Supplies 1 each 06/13/19 20:00 IV DIRECTED [facility] Levothyroxine Sodium 50 mcg 06/14/19 06:00 06/16/19 05:03 Levothroid PO 50 mcg 0600 [facility] Administration Fraser Carbonate 300 mg 06/14/19 20:00 06/15/19 19:21 Eskalith Cr PO 300 mg DAILY@1999 [facility] Administration Lorazepam 0.5 mg 06/14/19 08:30 06/16/19 08:27 Ativan PO 0.5 mg TID [facility] Administration Lorazepam 0.5 mg 06/14/19 17:26 06/16/19 08:43 Ativan Injection IM/IVP 0.5 mg Q6H PRN PRN Administration Metoprolol Succinate 50 mg 06/14/19 08:30 06/16/19 08:27 Toprol Xl PO 50 mg DAILY [facility] Administration Multivitamins 1 tab 06/14/19 08:30 06/16/19 08:27 PO 1 tab DAILY [facility] Administration Nortriptyline HCl 50 mg 06/14/19 20:00 06/15/19 19:21 Pamelor PO 50 mg DAILY@1999 [facility] Administration Pantoprazole Sodium 40 mg 06/14/19 08:30 06/16/19 08:27 Protonix PO 40 mg DAILY [facility] Administration Quetiapine Fumarate 100 mg 06/14/19 20:00 06/15/19 19:21 Seroquel PO 100 mg DAILY@1999 [facility] Administration Sodium Chloride 0 ml 06/16/19 08:30 06/16/19 08:43 Saline Flush 10 Ml Syringe IVP 10 ml BID MEÑO Administration Allergies fluoxetine Allergy (Mild, Verified 06/13/19 20:09) olanzapine Allergy (Mild, Verified 06/13/19 20:09) trazodone Allergy (Mild, Verified 06/13/19 20:09) haloperidol Adverse Reaction (Severe, Verified 06/13/19 20:09) Contraindicated Phenothiazines Adverse Reaction (Severe, Verified 06/13/19 20:09) DYSTONIA Exam Narrative Exam Narrative: Physical Exam: Gen: Patient of apparent stated age, NAD Head and face: no facial or cranial abnormalities Neck: Supple, no meningismus, no occipital tenderness CV: RRR, no murmur Resp: CTA B/L Abd: soft, nontender, nondistended Ext: No edema. No clubbing or cyanosis. No bony deformity. Neuro Exam: Language: fluency, naming, and repetition intact; some difficulties with comprehension; Mental Status: AAOx3, current events and fund of knowledge not intact; tangential; kept referring to a piece of paper in a non-sensical way; was very fixated on this piece of paper and having it interpreted; it was a list of her medications Speech: mild dysarthria with minimal chin tremor; has diagnosis of TD Cranial nerves: Funduscopy: not performed CN II: visual ignacio intact by threat CN III, IV, : extraocular movements intact by observation; she was unable to participate in visual pursuit;, no nystagmus, pupils symmetric and reactive to light CN V: face sensation intact to PP CN VII: no facial asymmetry noted CN VIII: hearing intact bilaterally CN IX, X: palate rises symmetrically CN XI: trapezius/SCM appear 5/5 bilaterally CN XII: protrudes tongue symmetrically Sensory: intact to PP in all extremities Motor: bulk and tone intact. No cogwheel rigidity. Would not participate in FMM testing or with pronator drift. Strength difficult to assess due to lack of cooperation. Moves all extremities equally. Has 5/5 strength in the bilateral UE. Had give way weakness in the LE, but this was symmetrical. LE testing also inhibited by bilateral leg/feet tremors. Reflexes: 2+ at the biceps, triceps, brachioradialis, and L patella; reduced at the R patella and achilles tendons bilaterally; toes down going on the right and neutral on the left; Coordination: would not participate in formal testing; some dysmetria noted in bilateral UE with natural movements Gait: deferred, patient in contained environment MMSE 1.Orientation a.Place (Country, State, City, Building, Floor) 4 b.Time (Year, Season, Month, Date, day of the week) 4 2.Immediate Recall (3 objects) 3/3 3.Attention (Serial 7s or spell world backwards) 0/5 (would not participate) 4.Delayed Recall (3 objects) 0/3 (2/3 with cueing) 5.Language a.Naming (watch and pencil) 06/29 b.Repetition 05/28 c.Comprehension (3-step command) 05/30 d.Reading (Close your eyes) N/T e.Writing (sentence) N/T 6.Visuospatial/Executive (copy drawing) N/T TOTAL: Results Last Vital Signs Temp 36.4 C L 06/16/19 07:15 Pulse 95 H 06/16/19 07:15 Resp 20 06/16/19 07:15 BP 127/82 06/16/19 07:15 Pulse Ox 97 06/16/19 10:38 Labs Result diagrams: 06/13/19 20:15 06/13/19 20:15
[2019-06-16 15:20] VITALS: BP 146/85; PULSE 103; RESP 18; TEMP 36.8; O2SAT 96
--- NOTE | 2019-06-16 16:38 | PDOC.CMPRO ---
- If Service Date Differs Date of service: 06/16/19 Time of Service: 16:39 Care Management Progress Note S/O: CM met with Stacy in the room she is talkative/she is not able to articulate her needs at this time. She has a list in her hand of her medications she states that she does not know what they are for. She expresses concern that she does not know what her medications are for or what her daughter is giving her. She states that she does not always get a long with her daughter. Stacy states that she wants to be home with her spouse and does not want to go anywhere for treatment. She is fixated on the paper in her hand. Mental Health did assess her on admission, however there is no mention of continued support while she is inpatient. [facility] has declined Stacy. Stacy has a pending neuro consult r/t question of cognitive impairment will await to see the results of the consult. Daughter is not present at the time of encounter with CM. A:Stacy is a 79 year old female admitted with agitation, with a history of bipolar P:Stacy remains acute at this time disposition to be determined. CM to continue to provide support patient and family discharge planning disposition.
[2019-06-16] MEDS: LORazepam 1 MG TAB PO (19:21)
[2019-06-16] MEDS: QUEtiapine 100 MG TAB PO (19:22)
[2019-06-16 19:25] VITALS: BP 145/84; PULSE 105; RESP 20; TEMP 36.8; O2SAT 94
[2019-06-17] MEDS: LORazepam 1 MG TAB PO ×3 (07:52→19:39)
[2019-06-17] MEDS: Metoprolol CR 50 MG TABCR PO (07:54)
[2019-06-17] MEDS: LORazepam 2 MG/ML VIAL 0.5 MG IM/IVP (08:07)
--- NOTE | 2019-06-17 08:28 | CMPROGNOTE_ITS ---
- If Service Date Differs Date of service: 06/17/19 Time of Service: 08:28 Care Management Progress Note S/O: Stacy remains acute at this time, CM contacted mental health and requested that they revaluate patient. [facility] recommend making the patient involuntary there is not a physician available and the patient is not requesting to leave. The patient is not currently SI or HI and is not in need of a CPSO. Stacy is taking her medications, she is agitated at times when CM is in the room which appears to be worse when her daughter is present. Daughter (Guardian) of patient states she will not take the patient home and that she or Stacy spouse can not provide safe care due to Stacy's behaviors. CM reviewed benefits in r/t acute stay vs swing bed level of care. Daughter states I cant pay for my mothers care there will be nothing left for me or my brother. Patient was declined exterminator term[employer] m edicaid in the past due to resources. CM encouraged family to reach out to their insole and outsole splitter to discuss financial resources to assist in determination if she would meet LTM guidelines. Stacy remains inpatient at this time related to agitation and determination of safe discharge plan which includes assistance by mental health in psychiatric placement. A:Stacy is a 79 year old female admitted with agitation, with a history of bipolar in need of psychiatric stabilization P:Stacy remains acute at this time disposition to be determined. CM to continue to provide support patient and family discharge planning disposition.
[2019-06-17] MEDS: Normal Saline Flush 10 ML SYR IVP ×2 (08:46→19:40)
[2019-06-17] MEDS: Levothyroxine 50 MCG TAB PO (09:13)
[2019-06-17 09:50] VITALS: BP 126/72; PULSE 78
[2019-06-17] MEDS: Folic Acid 1 MG TAB PO (10:02)
[2019-06-17] MEDS: amLODIPine 5 MG TAB PO (10:02)
[2019-06-17] MEDS: Aspirin 81 MG CHEW PO (10:02)
[2019-06-17] MEDS: Cholecalciferol (Vitamin D3) 1,000 UNIT TAB 2000 UNITS PO (10:02)
[2019-06-17] MEDS: Multivitamin TAB 1 TAB PO (10:02)
--- NOTE | 2019-06-17 13:18 | PGE_ITS ---
Date of Service Date of service: 06/17/19 Time of Service: 13:18 Assessment and Plan Assessment and plan (1) Psychosis: Status: Acute Assessment and plan: Evaluated by neurology - patient's presentation is not felt to be due to dementia, based on course/symptoms. The patient requires inpatient psychiatric hospitalization, and if the patient does not want to go voluntarily, I support the idea of involuntary hospitalization. She is medically cleared for inpatient psychiatric stay. For now, continue her current medications. (2) Agitation: Status: Acute Assessment and plan: As above (3) Bipolar 2 disorder: Status: Chronic Assessment and plan: As above (4) Hypothyroidism: Status: Chronic Assessment and plan: Continue levothyroxine Qualifiers: Hypothyroidism type: unspecified Qualified Code(s): E03.9 - Hypothyroidism, unspecified (5) DVT prophylaxis: Status: Acute Assessment and plan: heparin SC (6) Discharge planning issues: Status: Acute Assessment and plan: Full code Seeking EE for involuntary admission to a psychiatric facility. Subjective Subjective Interval history since last seen: I'm doing bad. When I ask Ms Orosco what she means, she does not answer. When I ask her what's bad? She says everything. When I ask her if I can listen to her with my sthetoscope, she answers: I don't want to listen to anybody. She seems to choose not to answer my other questions. She states I don't want to see anybody. She does not know where she is right now. I guess I am in f ... I am in f (and she does not complete the sentence). Per her daughter and nursing, the patient has been perseverating over her list of medications, repeatedly looking over it. Per nursing/daughter, the patient believes she is being given the wrong medications. Per mental health, the patient may have to be EE'ed for involuntary psychiatric admission, which in my opinion is appropriate. Exam Narrative Exam Narrative: General: elderly female, sitting in a chair, responds to her name and some questions, A&Ox1 HEENT: EOMI, MMM Heart: RRR, no m/r/g Lungs: CTAB Abdomen: soft, nontender, nondistended Extremities: no e/c/c BLE's Objective Objective Clinical Data: Vital Signs Temperature 36.8 C 06/16/19 19:25 Temperature Source Skin 06/16/19 19:25 Pulse 78 06/17/19 09:50 Pulse Rhythm Regular 06/17/19 09:50 Respiratory Rate 20 06/16/19 19:25 Respiratory Effort 06/17/19 09:50 Respiratory Depth Shallow 06/17/19 09:50 Respiratory Pattern Normal 06/17/19 03:15 Blood Pressure 126/72 06/17/19 09:50 Pulse Oximetry 94 L 06/16/19 19:25 Oxygen Delivery Method Room Air 06/16/19 19:25 Oxygen Flow Rate 0 06/16/19 19:25 Pain Level 0 06/16/19 15:20 Comment 06/17/19 03:10 Intake & Output 06/16/19 06/17/19 06/17/19 23:59 11:59 23:59 Intake Total 610 / 1110 Output Total 200 / 600 600 / 600 Balance 410 / 510 -600 / -600 Intake: IV 10 / 10 Oral 600 / 1100 Output: Urine 200 / 600 600 / 600 Other: Urine Color Yellow Yellow Urine Appearance Clear Clear Urine Odor None Comment Voided significant amount in diaper as well Voiding Methods Toilet Toilet Diaper Incontinent Laboratory Results WBC 8.02 k/cumm (4.4-10.8) 06/13/19 20:15 RBC 3.80 m/cumm (4.00-5.20) L 06/13/19 20:15 Hgb 10.7 g/dL (12.0-15.5) L 06/13/19 20:15 Hct 34.0 % (36.0-46.0) L 06/13/19 20:15 MCV 89.5 fL (80-95) 06/13/19 20:15 MCH 28.2 pg (27.0-33.0) 06/13/19 20:15 MCHC 31.5 g/dL (32.0-36.0) L 06/13/19 20:15 RDW 15.7 % (11.7-14.6) H 06/13/19 20:15 Plt Count 347 x1000/uL (130-400) 06/13/19 20:15 MPV 8.5 fL (8.0-11.0) 06/13/19 20:15 Immature Gran % 0.0 % 06/13/19 20:15 Neutrophils % 67.6 06/13/19 20:15 Lymphocytes % 22.7 06/13/19 20:15 Monocytes % 7.2 06/13/19 20:15 Eosinophils % 2.4 06/13/19 20:15 Basophils % 0.1 06/13/19 20:15 Absolute Neutrophils 5.42 k/cumm (1.2-6.7) 06/13/19 20:15 Absolute Lymphocytes 1.82 k/cumm (1.2-3.4) 06/13/19 20:15 Absolute Monocytes 0.58 k/cumm (0.11-0.7) 06/13/19 20:15 Absolute Eosinophils 0.19 k/cumm (0.0-0.7) 06/13/19 20:15 Absolute Basophils 0.01 k/cumm (0.0-0.2) 06/13/19 20:15 PT 10.8 sec (9.3-11.0) 06/13/19 20:15 INR 1.1 (0.9-1.1) 06/13/19 20:15 APTT 22.0 sec (21.0-31.4) 06/13/19 20:15 VBG pH 7.33 (7.35-7.45) L 06/13/19 20:15 VBG pCO2 46 mm/Hg (34-47) 06/13/19 20:15 VBG pO2 38 mm/Hg (28-44) 06/13/19 20:15 VBG HCO3 24 mmol/L (22-28) 06/13/19 20:15 VBG Total CO2 23 mmol/L (22-29) 06/13/19 20:15 VBG O2 Saturation 69 % (70-80) L 06/13/19 20:15 VBG Base Excess -1.6 mmol/L (-3-3) 06/13/19 20:15 Sodium 142 mmol/L (136-145) 06/13/19 20:15 Potassium 3.2 mmol/L (3.5-5.1) L 06/13/19 20:15 Chloride 106 mmol/L (98-107) 06/13/19 20:15 Carbon Dioxide 24.8 mmol/L (21.0-32.0) 06/13/19 20:15 Anion Gap 11.2 mmol/L (3-11) H 06/13/19 20:15 BUN 18 mg/dL (7-18) 06/13/19 20:15 Creatinine 1.31 mg/dL (0.55-1.02) H 06/13/19 20:15 Estimated GFR/1.73 m2 39.06 (mL/min/1.73m2) 06/13/19 20:15 Glucose 143 mg/dL (74-106) H 06/13/19 20:15 Calcium 9.1 mg/dL (8.5-10.1) 06/13/19 20:15 Magnesium 2.2 mg/dL (1.8-2.4) 06/13/19 20:15 Total Bilirubin 0.3 mg/dL (0.2-1.0) 06/13/19 20:15 AST 16 U/L (15-37) 06/13/19 20:15 ALT 20 U/L (14-59) 06/13/19 20:15 Alkaline Phosphatase 80 U/L (46-116) 06/13/19 20:15 Ammonia < 10 umol/L (11-32) L 06/13/19 20:15 Total Protein 7.3 g/dL (6.4-8.2) 06/13/19 20:15 Albumin 3.4 g/dL (3.4-5.0) 06/13/19 20:15 TSH 3.19 uIU/mL (0.36-3.74) 06/13/19 20:15 Urine Color Yellow (Yellow) 06/13/19 21:25 Urine Clarity Clear (Clear) 06/13/19 21:25 Urine pH 7.0 (5-8) 06/13/19 21:25 Ur Specific [place] 1.010 (1.005-1.025) 06/13/19 21:25 Urine Protein Negative mg/dL (Negative) 06/13/19 21:25 Urine Ketones Negative mg/dL (Negative) 06/13/19 21:25 Urine Blood Trace-lysed (Negative) H 06/13/19 21:25 Urine Nitrite Negative (Negative) 06/13/19 21:25 Urine Bilirubin Negative (Negative) 06/13/19 21:25 Urine Urobilinogen 0.2 EU/dL (Up TO 0.2) 06/13/19 21:25 Ur Leukocyte Esterase Negative (Negative) 06/13/19 21:25 Urine RBC 0-2 HPF (0-2) 06/13/19 21:25 Urine WBC 0-2 HPF (0-5) 06/13/19 21:25 Ur Epithelial Cells Negative HPF (Negative) 06/13/19 21:25 Urine Crystals Negative HPF (Negative) 06/13/19 21:25 Urine Bacteria Negative HPF (Negative) 06/13/19 21:25 Urine Casts Negative LPF (Negative) 06/13/19 21:25 Urine Mucus Negative (Negative) 06/13/19 21:25 Urine Other Rare renal (Negative) 06/13/19 21:25 Ur Culture Indicated? C&s done as ordered 06/13/19 21:25 Urine Glucose Negative mg/dL (Negative) 06/13/19 21:25 [place] 0.78 mmol/L (0.60-1.20) 06/14/19 11:15
--- NOTE | 2019-06-17 14:34 | PDOC.MHCN_ITS ---
Mental Health Crisis Note Presenting Issue How did you arrive at the ED and why did you come: Clt had already arrived at [facility] was placed on the floors. Clt has been suffering from agitation and testing was done. The clt was cleared of any neurological issues. Medical suspected clt's behavior was because of clt's psychological issues. Precipitating Factors Clt was very incoherent. She was not able to do date, place, time or situation. The clt had claimed she was at home demanding her daughter leave. The clt has been decompensating for days having some days better than others. On good days clt was oriented times 4. Disposition BEHAVIOR: uncooperative and harsh toward family EYE CONTACT: Intermittent MOOD: Disagreeable AFFECT: Angry APPETITE: Good Plan We are considering an EE.
[2019-06-17 15:35] VITALS: BP 152/92; PULSE 100; RESP 20; TEMP 36.1; O2SAT 97
[2019-06-17] MEDS: QUEtiapine 100 MG TAB PO (19:40)
[2019-06-18] MEDS: Heparin 5,000 UNITS/ML VIAL 5000 UNITS SC ×2 (01:51→14:38)
[2019-06-18 04:10] VITALS: BP 146/85; PULSE 92; RESP 19; TEMP 36.4; O2SAT 97
[2019-06-18] MEDS: Levothyroxine 50 MCG TAB PO (05:45)
[2019-06-18 06:53] LABS: HCT 35.6 % (36.0-46.0); Mean Corp. HGB Concentration 30.9 g/dL (32.0-36.0); Mean Corpuscular Hemoglobin 27.5 pg (27.0-33.0); Mean Platelet Volume 8.8 fL (8.0-11.0); Platelet Count 351 x1000/uL (130-400); RBC Distribution Width 15.8 % (11.7-14.6); White Blood Cell Count 7.93 k/cumm (4.4-10.8)
[2019-06-18] MEDS: Cholecalciferol (Vitamin D3) 1,000 UNIT TAB 2000 UNITS PO (07:57)
[2019-06-18] MEDS: LORazepam 1 MG TAB PO ×3 (07:57→20:11)
[2019-06-18] MEDS: amLODIPine 5 MG TAB PO (07:57)
[2019-06-18] MEDS: Aspirin 81 MG CHEW PO (07:58)
[2019-06-18] MEDS: Pantoprazole 40 MG TABCR PO (07:59)
[2019-06-18] MEDS: Multivitamin TAB 1 TAB PO (07:59)
[2019-06-18] MEDS: Metoprolol CR 50 MG TABCR PO (08:01)
[2019-06-18] MEDS: Normal Saline Flush 10 ML SYR IVP ×2 (08:03→20:11)
[2019-06-18] MEDS: Folic Acid 1 MG TAB PO (08:03)
[2019-06-18 09:29] VITALS: BP 101/65; PULSE 86; RESP 18; TEMP 36.7; O2SAT 96
[2019-06-18 09:55] VITALS: O2SAT 96
--- NOTE | 2019-06-18 10:25 | PT.INIE ---
Date of service: 06/18/19 Time of Service: 09:26 PT Notes Visit Reasons: AGITATION Physical Therapy Inpatient Initial Evaluation Date: 06/18/2019 Referring Doctor: Hayley Pinzon M.D. PT Orders: PT CONSULT: Limited Ability Precautions: Fall. Standard. Activity as tolerated. Patient Profile/Admitting Diagnosis: Pt is an 79-year-old female that presented to the ER on 06/13/2019 for AMS/LOC. She was admitted to the hospital with diagnoses of agitation, psychosis, and bipolar 2 disorder. PMHX: Medical History Bipolar 2 disorder (Chronic 01/30/17) Per Dr. 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 Surgical History S/P ORIF (open reduction internal fixation) fracture (Acute) Social History/Home Situation: Pt previously lived with her daughter, but per medical records the daughter is no longer able to care for the pt at home. Care management is currently looking at a psychiatric facility for housing. Equipment Owned/DME: none Subjective: While ambulating the pt stated twice, ?not too far? as she reported that she had broken her ribs and hips, but was not able to report on when this had occurred. Objective: General Observation: IV line in RUE. Mental Status: Unable to follow greater than one step commands. Pain: no complaints of pain at rest Vital Signs: NT ROM: Right Upper Extremity: Shoulder Flexion WFL. Shoulder abduction WFL. Elbow flexion WFL. Wrist flexion WFL. Opening and closing of hand WFL. Left Upper Extremity: Shoulder Flexion WFL. Shoulder abduction WFL. Elbow flexion WFL. Wrist flexion WFL. Opening and closing of hand WFL. Right Lower Extremity: Hip flexion WFL. Hip abduction WFL. Knee flexion WFL. Ankle dorsiflexion WFL. Ankle plantarflexion WFL. Left Lower Extremity: Hip flexion WFL. Hip abduction WFL. Knee flexion WFL. Ankle dorsiflexion WFL. Ankle plantarflexion WFL. 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 Strength may be greater, however, the pt had a difficult time with instructions for PT to apply resistance. Lower extremity strength is globally a 3/5 strength. Strength may be greater, however, the pt had a difficult time with instructions for PT to apply resistance. Sensation: Intact as to pain and pressure on bilateral lower extremities. Bed Mobility/Transfers: Rolling NT Supine to sit NT Sit to supine NT Sit to stand SBA with cues to push up from chair Stand to sit SBA with cues to reach back to chair Bed to chair SBA Chair to bed SBA Gait: Pt was able to ambulate 120 feet + 25 feet + 25 feet with FWB using a front-wheeled walker. Step through gait pattern using walker and age-related decrease in mark. CGA by PT with wheelchair follow of PT student. She requires guidance by PT with walker. Pt reported some discomfort on ribs and hip. Balance: Static Sitting: Normal Dynamic Sitting: Normal Static Standing: Fair Dynamic Standing: Fair Special Tests: Mobility Limitations Standardized Measure [facility] AM-PAC 6 clicks Basic Mobility Inpatient Short Form: Raw Score: 22 CMS Score: 21% deficit Informed Consent/Education: Patient instructed in purpose of PT consult and plan of care. Assessment: Pt is an 79-year-old female that presented to the ER on 06/13/2019 for AMS/LOC. She was admitted to the hospital with diagnoses of agitation, psychosis, and bipolar 2 disorder. Pt presents to physical therapy with impairment level findings as listed below. She demonstrates decreased safety awareness with using walker as she required assistance with walker while ambulating. Pt would continue to benefit from skilled physical therapy at this time. Patient presents with clinical signs and symptoms consistent with current/admitting diagnoses that have resulted to mobility limitations, gait instability, generalized weakness, and impairment of motor control as demonstrated by the following impairment level findings: 1. Decreased strength to B LE and UE major muscle groups 2. Impaired standing balance 3. Impaired activity tolerance 4. Impaired cognition Impairments are contributing to the following functional limitations: 1. Increased dependence with transfers 2. Inability to safely ambulate without assistive device and physical assistance 3. Increase completion time for mobility ADL performance 4. Increased fall risk Patient is assessed as a 11716 moderate complexity based on the following: History: Pt is an 79-year-old female that presented to the ER on 06/13/2019 for AMS/LOC. She was admitted to the hospital with diagnoses of agitation, psychosis, and bipolar 2 disorder. Examination: Demonstrable impairment in strength, balance, and range of motion with underlying impairments and functional limitations as documented above Presentation: Evolving Decision Makin moderate complexity Goals: Goals X1 week 1. Supine-Sit independent 2. Sit-Supine independent 3. Sit-Stand independent 4. Stand-Sit independent 5. Bed-Chair independent 6. Chair-Bed independent 7. Independent gait on level surface with use of least restrictive device for at least 300 feet without report of pain nor dyspnea 8. Independent stair negotiation while holding onto bilateral rails for at least 5 steps without report of pain nor dyspnea 9. Independent with home exercise program 10. Good static and dynamic standing balance/tolerance Plan of Care/Treatment Plan: 1x/day, 7 days/week x 1 week. Plan of care has been reviewed with the CARE MANAGEMENT ASSOCIATE providing the service under Physical Therapy direction. Initiate Physical Therapy intervention for strengthening, bed mobility, transfers, gait, stairs, balance training, use of assistive device. DISCHARGE RECOMMENDATIONS: Pt is to be discharged to a SNF when medically cleared. TREATMENT CODE/TIME: 90209 x 29 minutes beginning at 9:26 A.M. Thank you very much for this referral. Gala Henriquez, SPT Doctor of Physical Therapy Student [facility] Supervision provided by: Sneha Paiz PT, DPT, CLT [facility] [place], [place]
[2019-06-18 12:15] LABS: Bilirubin Negative (Negative); Blood Negative (Negative); Clarity Clear (Clear); Glucose Negative (Negative); Ketones Negative (Negative); Leukocyte Esterase Trace (Negative); Nitrite Negative (Negative); Specific Gravity 1.015 (1.005-1.025); Urobilinogen 0.2 EU/dL (Up TO 0.2); pH 6.5 (5-8)
[2019-06-18 12:27] LABS: Epithelial Cells Moderate HPF (Negative); Other Cells Few Renal (Negative); RBC 0-2 HPF (0-2)
[2019-06-18 12:28] LABS: Bacteria Few HPF (Negative); C & S Indicated? No/Sq. Contamination; Casts 10-20 Hyaline LPF (Negative); Crystals Few Amorphous HPF (Negative); Mucus Negative (Negative)
--- NOTE | 2019-06-18 12:53 | NUR.NOTE ---
Patient took AM medication with some education on why she should take them and what medications she was given. Pt is following commands, however does perseverate on her medications and believes that she is suppose to give the medications to her and is afraid she will give the wrong meds. Nursing Note:
[2019-06-18 15:34] VITALS: BP 146/80; PULSE 82; RESP 18; TEMP 36.3; O2SAT 97
--- NOTE | 2019-06-18 15:55 | PDOC.MHCN ---
Mental Health Crisis Note Presenting Issue How did you arrive at the ED and why did you come: Kathleen has been hospitalized since Sunday evening because of agitation. Precipitating Factors Clt yesterday was angry and disoriented. Today, clt has appeared that she has cleared. The clt was oriented to month and year, to place, and situation. The clt was able to engage in a coherent conversation. Clt's affect was bright. She called and requested her visit. The clt's Seroquel will be up'ed and upon the clt's continued improvement, she'll dc'ed tomorrow. Disposition BEHAVIOR: Clt has been cooperative. EYE CONTACT: Eye contact is good. MOOD: PLeasant AFFECT: Bright APPETITE: Good SLEEP(trouble falling/staying asleep: Better Plan Upon her continued improvement clt should be dc'ed tomorrow.
--- NOTE | 2019-06-18 16:14 | PGE_ITS ---
Date of Service Date of service: 06/18/19 Time of Service: 16:14 Assessment and Plan Assessment and plan (1) Psychosis: Status: Acute Assessment and plan: Evaluated by neurology - patient's presentation is not felt to be due to dementia, based on course/symptoms. Her exam today is markedly better than yesterday. I have informally consulted psychiatry - Dr Arevalo's recommendation is trialing to increase seroquel tonight, which we will do. Pending patient's status tomorrow, she could potentially be discharged home. Continue lithium. Recheck level in am. (2) Agitation: Status: Acute Assessment and plan: As above (3) Bipolar 2 disorder: Status: Chronic Assessment and plan: As above (4) Hypothyroidism: Status: Chronic Assessment and plan: Continue levothyroxine Qualifiers: Hypothyroidism type: unspecified Qualified Code(s): E03.9 - Hypothyroidism, unspecified (5) DVT prophylaxis: Status: Acute Assessment and plan: heparin SC (6) Discharge planning issues: Status: Acute Assessment and plan: Full code No longer appears to meet criteria for EE. Possible discharge home tomorrow. Subjective Subjective Interval history since last seen: Ms Orosco is much more alert today. She knows she is at [facility]. She has been able to speak in full sentences that make sense. She was able to tell me the details of her conversation with Kamilla (mental health worker). She has been taking her medications. Denies chest pain, shortness of breath, dizziness, nausea. When I ask her if something specific is bothering her today, she says my depression, I guess. Exam Narrative Exam Narrative: General: elderly female, sitting in a chair, A&Ox2, much more coherent today and interacts appropriately. HEENT: EOMI, MMM Heart: RRR, no m/r/g Lungs: CTAB Abdomen: soft, nontender, nondistended Extremities: no e/c/c BLE's Objective Objective Clinical Data: Abnormal lab results 06/18/19 06/18/19 Range/Units 06:25 10:45 Hgb 11.0 L (12.0-15.5) g/dL Hct 35.6 L (36.0-46.0) % MCHC 30.9 L (32.0-36.0) g/dL RDW 15.8 H (11.7-14.6) % Ur Leukocyte Esterase Trace H (Negative) Vital Signs Temperature 36.3 C L 06/18/19 15:34 Temperature Source Tympanic 06/18/19 15:34 Pulse 82 06/18/19 15:34 Pulse Rhythm Regular 06/18/19 15:51 Respiratory Rate 18 06/18/19 15:34 Respiratory Effort 06/18/19 15:51 Respiratory Depth Normal 06/18/19 15:51 Respiratory Pattern Normal 06/18/19 15:51 Blood Pressure 146/80 H 06/18/19 15:34 Pulse Oximetry 97 06/18/19 15:34 Oxygen Delivery Method Room Air 06/18/19 15:34 Oxygen Flow Rate 0 06/18/19 15:34 Pain Level 0 06/18/19 15:34 Comment 06/17/19 03:10 Intake & Output 06/17/19 06/18/19 06/18/19 23:59 11:59 23:59 Intake Total 920 / 920 900 / 1340 440 / 1340 Output Total 800 / 1400 700 / 700 Balance 120 / -480 200 / 640 440 / 640 Intake: IV 10 Oral 910 / 910 900 / 1340 440 / 1340 Output: Urine 800 / 1400 700 / 700 Other: Urine Color Yellow Yellow Urine Appearance Clear Clear Clear Urine Odor Strong None Voiding Methods Toilet Toilet Laboratory Results WBC 7.93 k/cumm (4.4-10.8) 06/18/19 06:25 RBC 4.00 m/cumm (4.00-5.20) 06/18/19 06:25 Hgb 11.0 g/dL (12.0-15.5) L 06/18/19 06:25 Hct 35.6 % (36.0-46.0) L 06/18/19 06:25 MCV 89.0 fL (80-95) 06/18/19 06:25 MCH 27.5 pg (27.0-33.0) 06/18/19 06:25 MCHC 30.9 g/dL (32.0-36.0) L 06/18/19 06:25 RDW 15.8 % (11.7-14.6) H 06/18/19 06:25 Plt Count 351 x1000/uL (130-400) 06/18/19 06:25 MPV 8.8 fL (8.0-11.0) 06/18/19 06:25 Immature Gran % 0.0 % 06/13/19 20:15 Neutrophils % 67.6 06/13/19 20:15 Lymphocytes % 22.7 06/13/19 20:15 Monocytes % 7.2 06/13/19 20:15 Eosinophils % 2.4 06/13/19 20:15 Basophils % 0.1 06/13/19 20:15 Absolute Neutrophils 5.42 k/cumm (1.2-6.7) 06/13/19 20:15 Absolute Lymphocytes 1.82 k/cumm (1.2-3.4) 06/13/19 20:15 Absolute Monocytes 0.58 k/cumm (0.11-0.7) 06/13/19 20:15 Absolute Eosinophils 0.19 k/cumm (0.0-0.7) 06/13/19 20:15 Absolute Basophils 0.01 k/cumm (0.0-0.2) 06/13/19 20:15 PT 10.8 sec (9.3-11.0) 06/13/19 20:15 INR 1.1 (0.9-1.1) 06/13/19 20:15 APTT 22.0 sec (21.0-31.4) 06/13/19 20:15 VBG pH 7.33 (7.35-7.45) L 06/13/19 20:15 VBG pCO2 46 mm/Hg (34-47) 06/13/19 20:15 VBG pO2 38 mm/Hg (28-44) 06/13/19 20:15 VBG HCO3 24 mmol/L (22-28) 06/13/19 20:15 VBG Total CO2 23 mmol/L (22-29) 06/13/19 20:15 VBG O2 Saturation 69 % (70-80) L 06/13/19 20:15 VBG Base Excess -1.6 mmol/L (-3-3) 06/13/19 20:15 Sodium 142 mmol/L (136-145) 06/13/19 20:15 Potassium 3.2 mmol/L (3.5-5.1) L 06/13/19 20:15 Chloride 106 mmol/L (98-107) 06/13/19 20:15 Carbon Dioxide 24.8 mmol/L (21.0-32.0) 06/13/19 20:15 Anion Gap 11.2 mmol/L (3-11) H 06/13/19 20:15 BUN 18 mg/dL (7-18) 06/13/19 20:15 Creatinine 1.31 mg/dL (0.55-1.02) H 06/13/19 20:15 Estimated GFR/1.73 m2 39.06 (mL/min/1.73m2) 06/13/19 20:15 Glucose 143 mg/dL (74-106) H 06/13/19 20:15 Calcium 9.1 mg/dL (8.5-10.1) 06/13/19 20:15 Magnesium 2.2 mg/dL (1.8-2.4) 06/13/19 20:15 Total Bilirubin 0.3 mg/dL (0.2-1.0) 06/13/19 20:15 AST 16 U/L (15-37) 06/13/19 20:15 ALT 20 U/L (14-59) 06/13/19 20:15 Alkaline Phosphatase 80 U/L (46-116) 06/13/19 20:15 Ammonia < 10 umol/L (11-32) L 06/13/19 20:15 Total Protein 7.3 g/dL (6.4-8.2) 06/13/19 20:15 Albumin 3.4 g/dL (3.4-5.0) 06/13/19 20:15 TSH 3.19 uIU/mL (0.36-3.74) 06/13/19 20:15 Urine Color Yellow (Yellow) 06/18/19 10:45 Urine Clarity Clear (Clear) 06/18/19 10:45 Urine pH 6.5 (5-8) 06/18/19 10:45 Ur Specific [place] 1.015 (1.005-1.025) 06/18/19 10:45 Urine Protein Negative mg/dL (Negative) 06/18/19 10:45 Urine Ketones Negative mg/dL (Negative) 06/18/19 10:45 Urine Blood Negative (Negative) 06/18/19 10:45 Urine Nitrite Negative (Negative) 06/18/19 10:45 Urine Bilirubin Negative (Negative) 06/18/19 10:45 Urine Urobilinogen 0.2 EU/dL (Up TO 0.2) 06/18/19 10:45 Ur Leukocyte Esterase Trace (Negative) H 06/18/19 10:45 Urine RBC 0-2 HPF (0-2) 06/18/19 10:45 Urine WBC 5-10 HPF (0-5) 06/18/19 10:45 Ur Epithelial Cells Moderate HPF (Negative) 06/18/19 10:45 Urine Crystals Few amorphous HPF (Negative) 06/18/19 10:45 Urine Bacteria Few HPF (Negative) 06/18/19 10:45 Urine Casts 10-20 hyaline LPF (Negative) 06/18/19 10:45 Urine Mucus Negative (Negative) 06/18/19 10:45 Urine Other Few renal (Negative) 06/18/19 10:45 Ur Culture Indicated? No/sq. contamination 06/18/19 10:45 Urine Glucose Negative mg/dL (Negative) 06/18/19 10:45 Lucky 0.78 mmol/L (0.60-1.20) 06/14/19 11:15
--- NOTE | 2019-06-18 17:57 | PDOC.CMPRO ---
- If Service Date Differs Date of service: 06/18/19 Time of Service: 17:57 Care Management Progress Note S/O: Stacy remains acute at this time, CM met with mental health Stacy is no longer meeting EE criteria. She is taking her medications, she was able communicate today including reading the newspaper. She appeared less agitated with her family and requested her spouse come to visit. Provider increased her Seroquel today to see if her symptoms improved. Per Mental health Stacy had been on a higher dose and the family decreased it recently. Stacy may be able to return home with family if her agitation continues to improve. Her daughter Lluvia agrees with the plan and feels that if on Stacy continues to progress she would like her to be discharged home with ongoing supports through [facility]. A:Stacy is a 79 year old female admitted with agitation, with a history of bipolar in need of psychiatric stabilization P:Stacy remains acute at this time disposition to be determined. CM to continue to provide support patient and family discharge planning disposition.
[2019-06-18 20:09] VITALS: BP 126/75; PULSE 74; RESP 18; TEMP 37.2; O2SAT 97
[2019-06-18] MEDS: QUEtiapine 100 MG TAB 200 MG PO (20:11)
[2019-06-18] MEDS: Acetaminophen 325 MG TAB 650 MG PO (23:14)
[2019-06-19] MEDS: Heparin 5,000 UNITS/ML VIAL 5000 UNITS SC ×2 (01:46→13:57)
[2019-06-19 01:55] VITALS: BP 94/61; PULSE 72; RESP 16; TEMP 36.1; O2SAT 94
[2019-06-19 05:21] VITALS: BP 100/60; PULSE 68; RESP 16; TEMP 36.4; O2SAT 95
[2019-06-19] MEDS: Levothyroxine 50 MCG TAB PO (05:27)
[2019-06-19 07:33] LABS: Lithium 1.12 mmol/L (0.60-1.20)
[2019-06-19 07:38] VITALS: BP 131/81; PULSE 91; RESP 17; TEMP 36.4; O2SAT 95
[2019-06-19] MEDS: Normal Saline Flush 10 ML SYR IVP (09:19)
[2019-06-19] MEDS: Aspirin 81 MG CHEW PO (09:20)
[2019-06-19] MEDS: Multivitamin TAB 1 TAB PO (09:20)
[2019-06-19] MEDS: Metoprolol CR 50 MG TABCR PO (09:20)
[2019-06-19] MEDS: Cholecalciferol (Vitamin D3) 1,000 UNIT TAB 2000 UNITS PO (09:20)
[2019-06-19] MEDS: Pantoprazole 40 MG TABCR PO (09:20)
[2019-06-19] MEDS: amLODIPine 5 MG TAB PO (09:20)
[2019-06-19] MEDS: LORazepam 1 MG TAB PO ×2 (09:20→13:56)
[2019-06-19] MEDS: Folic Acid 1 MG TAB PO (09:20)
--- NOTE | 2019-06-19 10:53 | PT.INTREAT ---
Date of service: 06/19/19 Time of Service: 10:53 PT Notes Visit Reasons: AGITATION Inpatient Physical Therapy Treatment Note [facility] Date: 06/19/19 PRECAUTIONS: Fall SUBJECTIVE: Stacy is pleasant and agreeable to participating in PT. OBJECTIVE: PAIN: No c/o pain BED MOBILITY/TRANSFERS Sit-stand: SBA Stand-sit: SBA GAIT Assistive Device: No AD FWW Weight bearing: Full Assist: CGA without AD SBA with FWW Distance: 40' without AD 200' with FWW Deviation: Small shuffling steps without AD, path deviation to R with FWW, not able to navigate around obstacles well ASSESSMENT: Patient tolerated session well without complaint. She was able to tolerate a progression in gait distance with FWW support and SBA. She would benefit from continued gait and transfer training, as well as general conditioning for improved mobility and activity tolerance. PLAN: Continue with PT's POC TREATMENT CODE/TIME: 15 minutes; 63128
--- NOTE | 2019-06-19 12:49 | PDOC.CMDIS ---
- If Service Date Differs Date of service: 06/19/19 Time of Service: 12:49 LACE Index Scoring Tool - Questions: Length of Stay (in days): 4 - 6 Acuity (Admit via E.D.?): Yes Comorbidities: Mild Liver/Renal Disease E.D. Visits: 7 - Answers: Total Score: 13 Risk of Readmission: High Risk Care Management Discharge Reason for Hospitalization: Agitation Discharge Plan: Stacy will be discharged home today with her daughter and return to her own home with her spouse. Home health is been recommended for nursing and PT which will be ordered at time of discharge. CM contacted home health and placed referral. Stacy will have medication changes to manage her symptoms of agitation, family is part of discharge plan and education. She will follow-up with [facility] services and her primary care provider as directed. [facility] did meet with patient today and reviewed the plan, CM is recommended PUBLIC RELATIONS SENIOR ASSOCIATE services in the community to assist with medications and support r/t Stacy's mental health diagnosis and promote indepednece. Daughter to transport home at time of discharge. Patient/Family Education Needs: Discharge education, medication changes, limitations, follow-up plan of care, ask me 3, and self-management. Services Needed at Discharge: Home Health Care Services, Physical Therapy - MH Services (Omit if N/A) Current MH Services: [facility]
--- NOTE | 2019-06-19 14:41 | DSE_ITS ---
Date of service: 06/19/19 Time of Service: 14:42 DS: Diagnosis Discharge Diagnosis (1) Psychosis: Status: Acute (2) Agitation: Status: Acute (3) Bipolar 2 disorder: Status: Chronic (4) Hypothyroidism: Status: Chronic Discharge Plan Disposition Patient Disposition: HOME W/HOME HEALTH SERVICE Condition: Stable Discharge Details Chief Complaint: AMS/LOC Clinical Impression: Acute hypokalemia, Noncompliance with medication regimen, AMS (altered mental status) Reason For Visit: AGITATION Admit Date/Time: 06/15/19 22:26 Admit Provider: Heladio Robertson Attending Provider: Heladio Robertson Primary Care Provider: Patricia Goss ED Provider: Thompson Mireles Hospital Course Hospital Course: Ms Orosco is an 79 year old female with PMHx of Bipolar disorder with episodes of agitated depression/psychosis, as well as history of hypothyroidism, CKDIII, tardive dyskinesia, who was treated on [facility] hospitalist service from 06/13/2019 until 06/19/2019 for acute psychosis and agitation in setting of her bipolar 2 disorder. Per daughter, the patient was taking 450 mg of lithium as well as 100 mg of seroquel at home with worsening symptoms. When the patient was given 450 mg of lithium at [facility], this resulted in her levels going up to 1.12 without evidence of lithium toxicity. This is slightly higher than target for Ms Orosco, however, so this dose is being decreased back down to 300 mg on discharge with recommendations for prompt follow up with PCP and psychiatry on discharge. Her seroquel was titrated back up to 200 mg PO QHS. With these changes, the patient is A&Ox3, able to participate in her care, does not resist care, is compliant with her medications. While she was initially agreeing to a voluntary psychiatric hospitalization, she was declined by several facilities, and is no longer willing to go voluntarily. Given her ability to participate in her care and improved psychiatric status, the patient does not meet criteria for involuntary psychiatric hospitalization. She is cleared for discharge home with home health RN, PT, YOUTH CAREER SPECIALIST. She is also being set up with [facility]. Care for patient as well as completion of her discharge summary on day of discharge took 45 minutes. Home Meds and New Rx's Prescriptions: New lithium carbonate 300 mg Tablet Extended Release 300 mg PO DAILY@1999 Qty: 30 RF: 0 quetiapine [Seroquel] 100 mg Tablet 200 mg PO DAILY@1999 Qty: 60 RF: 0 Continued nortriptyline 50 mg capsule 50 mg PO QHS RF: 0 multivitamin 1 EACH tablet 1 ea PO DAILY RF: 0 cholecalciferol (vitamin D3) [Vitamin D3] 2,000 UNIT tablet 2,000 unit PO DAILY RF: 0 acetaminophen [Tylenol Extra Strength] 500 MG tablet 500 mg PO Q6H PRN RF: 0 aspirin [Aspirin Low-Strength] 81 MG tablet,chewable 81 mg PO DAILY RF: 0 metoprolol succinate 50 mg tablet extended release 24 hr 50 mg PO DAILY Qty: 30 RF: 11 folic acid 1 mg tablet 1 mg PO DAILY Qty: 30 RF: 11 amlodipine 5 mg tablet 5 mg PO DAILY Qty: 30 RF: 11 pantoprazole 40 mg tablet,delayed release (DR/EC) 40 mg PO DAILY Qty: 30 RF: 11 levothyroxine 50 mcg tablet 50 mcg PO DAILY Qty: 30 RF: 11 ondansetron 4 mg tablet,disintegrating 4 mg PO Q8H PRN (Reason: nausea and vomiting) Qty: 10 RF: 0 lorazepam 1 mg Tablet 1 mg PO TID RF: 0 Discontinued quetiapine [Seroquel] 50 mg tablet 100 mg PO HS RF: 0 lithium carbonate 450 mg Tablet Extended Release 450 mg PO QHS RF: 0 Discharge Instructions Instructions: Flournoy (By mouth), Quetiapine (By mouth) Additional Instructions: Follow up with your PCP and mental health as instructed. Return to the hospital with any changes in mental/psychiatric status that cannot be handled at home, any fever, bleeding, chest pain, or shortness of breath. Drink plenty of water. Next lithium level 06/23/2019. Care Plan Goals: Home with [facility], home health nursing, PT, YOUTH CAREER SPECIALIST. Stand Alone Forms: Nursing Discharge Form Referrals: Linda Garcia NP [NURSE PRACTITIONER] - 06/26/19 12:45 pm Activity:: Activity as Tolerated Equipment/Supplies:: No Equipment Needed Diet:: As Tolerated DS: Summary Status at Discharge Functional status at discharge: independent ambulation Overall status at discharge: patient is progressing back to baseline Mental Status: mental status grossly normal Speech and Movement: speech and movement normal Mood: congruent mood and euthymic mood Affect: normal affect and blunted Exam Narrative Exam Narrative: General: elderly female, sitting in a chair, A&Ox3, coherent, answering questions appropriately HEENT: EOMI, MMM Heart: RRR, no m/r/g Lungs: CTAB Abdomen: soft, nontender, nondistended Extremities: no e/c/c BLE's Psych Mental Status: mental status grossly normal Speech and Movement: speech and movement normal Mood: congruent mood and euthymic mood Affect: normal affect and blunted DS: Data Vitals/I&O Vitals and I&O: Vital Signs Temperature 36.4 C L 06/19/19 07:38 Temperature Source Tympanic 06/19/19 07:38 Pulse 91 H 06/19/19 07:38 Pulse Rhythm Regular 06/19/19 11:05 Respiratory Rate 17 06/19/19 07:38 Respiratory Effort Non-Labored 06/19/19 11:05 Respiratory Depth Normal 06/19/19 11:05 Respiratory Pattern Normal 06/19/19 11:05 Blood Pressure 131/81 06/19/19 07:38 Pulse Oximetry 95 06/19/19 07:38 Oxygen Delivery Method Room Air 06/19/19 07:38 Oxygen Flow Rate 0 06/19/19 07:38 Pain Level 0 06/19/19 07:38 Comment 06/17/19 03:10 Intake & Output 06/18/19 06/19/19 06/19/19 23:59 11:59 23:59 Intake Total 680 / 1580 1090 / 1330 240 / 1330 Output Total 500 / 1200 350 / 350 Balance 180 / 380 740 / 980 240 / 980 Intake: Oral 680 / 1580 1090 / 1330 240 / 1330 Output: Urine 500 / 1200 350 / 350 Other: Urine Color Yellow Straw Urine Appearance Clear Clear Urine Odor None Normal Comment patient missed the hat good flow in the toilet Voiding Methods Toilet Toilet Toilet Data Completed and Pending Completed studies during hospitalization [Text1]: CXR 06/13/2019: No acute process. If there is a high clinical suspicion of pneumonia follow-up PA and lateral chest could be obtained. Labs on day of discharge: Labs from last 24 hours 06/19/19 06:40 Flournoy 1.12 [facility] Medical History Bipolar 2 disorder (Chronic 01/30/17) Per Dr. 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 Surgical History S/P ORIF (open reduction internal fixation) fracture (Acute) Family History Brother Heart disease Stroke Brother Heart disease Other Hypertension Social History Smoking/Tobacco Use Status: Never Alcohol Intake: former Drug use: Never Substance use type: does not use Number of Children: 2 Pets and animals: Yes Pets and animals: cat(s) Current gender identity: female What type of physical activity do you participate in: walking Frequency: daily Seatbelt use: always Do you feel safe at home: Yes Do you feel safe in your relationship?: Yes
--- NOTE | 2019-06-19 15:04 | PDOC.HHF2F ---
Home Health Certification Home Health Certification: 1. Encounter Date and Reason I certify that KENIA RAPHAEL was seen by Hayley Pinzon on 06/19/19 and that I had a [id number] encounter with this patient that meets the physician face to face encounter requirements. 2. Clinical Findings Supporting Skilled Need and Homebound Status I certify that home health services are medically necessary, include either intermittent chcf and/or physical/speech therapy, and that this patient is homebound in that absences from the home require considerable and taxing effort and are infrequent or of short duration, or are attributable to the need to receive medical care. [X] (a) Attached documentation from encounter provides clinical findings supporting skilled need and homebound status (including what assistance patient requires to leave the home). The encounter with the patient was in whole, or in part, for the following medical condition, which is the primary reason for home health care: AGITATION Fdc: medication reconciliation, teaching, assessment of patient's safety. Please, check lithium level on 06/23/2019 - results to Prerna Plunkett. Physical Therapy: eval and treat ASSISTANT MANAGER AIRSIDE OPERATIONS: assess for patient's safety at home and resources in the community that might benefit the patient Homebound: unable to leave home without assistance 3. Certification and Authentication I certify that I composed the above information based on my clinical judgement relating to this patient's medical condition and, if applicable, clinical findings communicated to me by the NPP or inpatient physician who performed the Home Health Referral. All further orders will be obtained through ___Patricia Goss (Community Based Physician - PCP)
--- NOTE | 2019-06-20 15:26 | INDS_ITS ---
Date of service: 06/20/19 Time of Service: 15:26 PT Notes Visit Reasons: AGITATION Physical Therapy Inpatient Discharge Summary Date: 06/18/2019 Dates of Service: 06/18/2019 through 06/19/2019 This is a clinical summary of care provided on the duration of dates listed above. No charge was made in the completion of this documentation. Objective: Unable to follow greater than one step commands. Pain: no complaints of pain at rest Vital Signs: NT ROM: Right Upper Extremity: Shoulder Flexion WFL. Shoulder abduction WFL. Elbow flexion WFL. Wrist flexion WFL. Opening and closing of hand WFL. Left Upper Extremity: Shoulder Flexion WFL. Shoulder abduction WFL. Elbow flexion WFL. Wrist flexion WFL. Opening and closing of hand WFL. Right Lower Extremity: Hip flexion WFL. Hip abduction WFL. Knee flexion WFL. Ankle dorsiflexion WFL. Ankle plantarflexion WFL. Left Lower Extremity: Hip flexion WFL. Hip abduction WFL. Knee flexion WFL. Ankle dorsiflexion WFL. Ankle plantarflexion WFL. Strength: Upper extremity strength is globally a 3/5 with strong sql report developer strength. Strength may be greater, however, the pt had a difficult time with instructions for PT to apply resistance. Lower extremity strength is globally a 3/5 strength. Strength may be greater, however, the pt had a difficult time with instructions for PT to apply resistance. Sensation: Intact as to pain and pressure on bilateral lower extremities. Bed Mobility/Transfers: Rolling NT Supine to sit NT Sit to supine NT Sit to stand SBA with cues to push up from chair Stand to sit SBA with cues to reach back to chair Bed to chair SBA Chair to bed SBA Gait: Pt was able to ambulate 40 feet FWB without an assistive device. Small shuffling gait pattern. CGA provided by PT. She was able to ambulate 200 feet using a front-wheeled walker. Path of ambulation deviates to the R. Not able to navigate around obstacles very well. SBA provided by PT. Balance: Static Sitting: Normal Dynamic Sitting: Normal Static Standing: Fair Dynamic Standing: Fair Assessment: Pt is an 79-year-old female that presented to the ER on 06/13/2019 for AMS/LOC. She was admitted to the hospital with diagnoses of agitation, psychosis, and bipolar 2 disorder. Pt presented to physical therapy with impairment level findings as listed below. The pt is able to ambulate without an assistive device, however, demonstrates a shuffling gait placing her at a high fall risk. She demonstrates decreased safety awareness with using a walker as she required assistance with walker navigation and deviates to the R while ambulating. Patient presented with clinical signs and symptoms consistent with current/admitting diagnoses that have resulted to mobility limitations, gait instability, generalized weakness, and impairment of motor control as demonstrated by the following impairment level findings: 1. Decreased strength to B LE and UE major muscle groups 2. Impaired standing balance 3. Impaired activity tolerance 4. Impaired cognition Impairments continue to contribute to the following functional limitations: 1. Increased dependence with transfers 2. Inability to safely ambulate without assistive device and physical assistance 3. Increase completion time for mobility ADL performance 4. Increased fall risk Patient is assessed as a [id number] moderate complexity based on the following: History: Pt is an 79-year-old female that presented to the ER on 06/13/2019 for AMS/LOC. She was admitted to the hospital with diagnoses of agitation, psychosis, and bipolar 2 disorder. Examination: Demonstrable impairment in strength, balance, and range of motion with underlying impairments and functional limitations as documented above Presentation: Evolving Decision Makin moderate complexity Goals: Goals X1 week 1. Supine-Sit independent -NOT MET 2. Sit-Supine independent -NOT MET 3. Sit-Stand independent -NOT MET 4. Stand-Sit independent -NOT MET 5. Bed-Chair independent -NOT MET 6. Chair-Bed independent -NOT MET 7. Independent gait on level surface with use of least restrictive device for at least 300 feet without report of pain nor dyspnea -NOT MET 8. Independent stair negotiation while holding onto bilateral rails for at least 5 steps without report of pain nor dyspnea -NOT MET 9. Independent with home exercise program -NOT MET 10. Good static and dynamic standing balance/tolerance -NOT MET DISCHARGE RECOMMENDATIONS: Discharge to nursing home facility for continued physical therapy for improved strength and increased independence with ambulating. Thank you very much for this referral. Gala Henriquez, SPT Doctor of Physical Therapy Student [facility] Supervision provided by Sneha Paiz PT, DPT, CLT [facility] [place], [place]
== END 2019-06-19 16:16 | disposition home health service (06) | DRG 885 ==
LOC: ER 20:22 → MS 22:54
PROVIDERS: Family Medicine; Admitting Provider General Practice; Emergency Provider Student in an Organized Health Care Education/Training Program; PCP Nurse Practitioner Family; Visit Provider Internal Medicine
DX: F23 Brief psychotic disorder (principal); F31.81 Bipolar II disorder; R45.1 Restlessness and agitation; E87.6 Hypokalemia; T43.596A Underdosing of other antipsychotics and neuroleptics, initial encounter; Z91.138 Patient's unintentional underdosing of medication regimen for other reason; E03.9 Hypothyroidism, unspecified; N18.3 Chronic kidney disease, stage 3 (moderate); K21.9 Gastro-esophageal reflux disease without esophagitis; E78.5 Hyperlipidemia, unspecified; G24.01 Drug induced subacute dyskinesia; I12.9 Hypertensive chronic kidney disease with stage 1 through stage 4 chronic kidney disease, or unspecified chronic kidney disease
CPT/HCPCS: 36415; 51701; 80053; 82805; 85027; 96361; 96365; 96366; 96375; 97162; 97530; 99222; 99223; 99232; 99233; 99239; 99285; 71045; 80178; 81003; 81015; 82140; 83735; 84443; 85025; 85610; 85730; 87086; 99219; 99226; G0378; J1644; J2060; J3480; J3490

== ENCOUNTER → 2019-06-16 08:14 | Outpatient (BNVA) | payer MEDICARE, SELFPAY | PROVIDERS: PCP Nurse Practitioner Family; Referring Provider Nurse Practitioner Family; Visit Provider Psychiatry & Neurology Neurology | DX: R69 Illness, unspecified (principal) ==

== ENCOUNTER 2020-01-09 08:47 | Outpatient (CLI) | payer MEDICARE, SELFPAY ==
[2020-01-12 10:50] LABS: SARS-CoV-2 RNA Undetected (Undetected); SARS-CoV-2 Specimen Source Nasopharynx
== END 2020-01-09 09:07 ==
PROVIDERS: PCP Nurse Practitioner Family; Visit Provider Nurse Practitioner
DX: Z11.59 Encounter for screening for other viral diseases (principal)
CPT/HCPCS: U0003

== ENCOUNTER 2020-02-10 00:41 | Outpatient (CLI) | payer MEDICARE, SELFPAY ==
--- NOTE | 2020-02-10 06:30 | DI.RAD_ITS ---
EXAM: XR HIP RT COMPLETE AP PELVIS CLINICAL HISTORY: R/o fx or dislocation, RT HIP PAIN, M25.551 TECHNIQUE: COMPARISON: No exams were available for comparison FINDINGS: Three views were obtained. There are mild degenerative changes of both hips with mild osteophyte for mation of the acetabula bilaterally. Mild DJD of the SI joints and moderate degenerative changes of the lower lumbar spine noted. There is no evidence of acute fracture or dislocation. IMPRESSION: RADIATION DOSE DELIVERED: Total DLP
[2020-02-10 08:22] LABS: Abs Immature Grans 0.01 10^3/uL (0.0-0.06); Absolute Basophil Count 0.02 10^3/uL (0.0-0.2); Absolute Eosinophil Count 0.25 10^3/uL (0.0-0.7); Absolute Monocyte Count 0.39 10^3/uL (0.1-0.8); Basophils % 0.4; Eosinophils % 4.4; HCT 40.6 % (36.0-46.0); HGB 12.7 g/dL (11.2-15.7); Immature Grans % 0.2; Lymphocytes % 28.2; MCH 29.1 pg (27.0-33.0); MCHC 31.3 % (32.0-36.0); MCV 92.9 fL (80-95); MPV 9.7 fL (8.0-11.0); Monocytes % 6.9; Neutrophils % 59.9; Nucleated RBC 0 %; Platelet Count 248 10^3/uL (130-400); RBC 4.37 10^6/uL (3.93-5.22); RDW 13.7 % (11.7-14.6); RDW-SD 46.5 fL; WBC 5.67 10^3/uL (4.4-10.8)
[2020-02-10 08:28] LABS: ALT 20 U/L (14-59); AST 16 U/L (15-37); Albumin 3.6 g/dL (3.4-5.0); Alkaline Phosphatase 63 U/L (46-116); Anion Gap 10.3 mmol/L (3-11); BUN 17 mg/dL (7-18); Bilirubin, Total 0.5 mg/dL (0.2-1.0); CO2 21.7 mmol/L (21.0-32.0); CREATININE 1.37 mg/dL (0.55-1.02); Calcium 9.4 mg/dL (8.5-10.1); Chloride 108 mmol/L (98-107); Glucose 106 mg/dL (74-106); Potassium 4.1 mmol/L (3.5-5.1); Sodium 140 mmol/L (136-145); TSH (W/Ref FT4) 0.36 uIU/mL (0.36-3.74); Total Protein 7.5 g/dL (6.4-8.2)
[2020-02-10 08:51] LABS: Lithium 0.83 mmol/L (0.60-1.20)
== END 2020-02-10 01:01 ==
PROVIDERS: Nurse Practitioner Family; PCP Nurse Practitioner Family; Visit Provider Nurse Practitioner Family
DX: M25.551 Pain in right hip (principal); M16.0 Bilateral primary osteoarthritis of hip; D64.9 Anemia, unspecified; F31.4 Bipolar disorder, current episode depressed, severe, without psychotic features; Z79.899 Other long term (current) drug therapy; Z51.81 Encounter for therapeutic drug level monitoring
CPT/HCPCS: 36415; 80053; 73502; 80178; 84443; 85025

== ENCOUNTER 2020-04-09 03:28 | Outpatient (CLI) | payer MEDICARE, SELFPAY ==
--- NOTE | 2020-04-09 14:00 | DI.RAD_ITS ---
EXAM: XR KNEE RT 3V AP,LAT,RAINE CLINICAL HISTORY: OA vs. other?,rt knee pain,m25.561. TECHNIQUE: 2D digital imaging was performed. COMPARISON: CR XR CHEST 2V PA LATERAL from 05/02/2019 FINDINGS: BONES: No acute fracture is present. No bony destructive lesion is seen. Small enthesophyte at the chaudhari perior patella. JOINTS: The knee is normally aligned. No joint effusion is seen. SOFT TISSUE: Normal. IMPRESSION: Unremarkable radiographs of the right knee. DATA REPOSITORY: RADIATION DOSE DELIVERED:
== END 2020-04-09 03:48 ==
PROVIDERS: PCP Nurse Practitioner Family; Visit Provider Nurse Practitioner Family
DX: M25.561 Pain in right knee (principal)
CPT/HCPCS: 73562

== ENCOUNTER 2020-05-27 03:09 | Outpatient (CLI) | payer MEDICARE, SELFPAY ==
[2020-05-27 08:44] LABS: Lithium 0.61 mmol/L (0.60-1.20)
[2020-05-27 08:55] LABS: TSH (W/Ref FT4) 4.83 uIU/mL (0.36-3.74)
[2020-05-27 09:16] LABS: FREE T4 0.98 ng/dL (0.76-1.46)
== END 2020-05-27 03:29 ==
PROVIDERS: Nurse Practitioner Adult Health; PCP Nurse Practitioner Family; Visit Provider Nurse Practitioner Family
DX: E03.9 Hypothyroidism, unspecified (principal); F31.81 Bipolar II disorder; F32.9 Major depressive disorder, single episode, unspecified; Z51.81 Encounter for therapeutic drug level monitoring; Z79.899 Other long term (current) drug therapy
CPT/HCPCS: 36415; 80178; 84439; 84443

== ENCOUNTER 2020-07-12 23:30 | Observation (INO) | payer MEDICARE, SELFPAY ==
[2020-07-12 23:31] VITALS: BP 144/74; PULSE 95; RESP 18; TEMP 36.6; O2SAT 96
[2020-07-12 23:37] VITALS: RESP 18
--- NOTE | 2020-07-12 23:44 | ED.GENADUL_ITS ---
Discharge Plan Disposition Patient Disposition: [facility] INPATIENT Condition: Stable Discharge Details Chief Complaint: AMS/LOC Clinical Impression: Agitation, Psychosis, Bipolar 2 disorder Primary Care Provider: Patricia Goss ED Provider: Reji Hobbs Home Meds and New Rx's Prescriptions: No Action multivitamin 1 EACH tablet 1 ea PO DAILY RF: 0 cholecalciferol (vitamin D3) [Vitamin D3] 2,000 UNIT tablet 2,000 unit PO DAILY RF: 0 aspirin [Aspirin Low-Strength] 81 MG tablet,chewable 81 mg PO DAILY RF: 0 docusate sodium 100 mg capsule 100 mg PO BID RF: 0 ferrous sulfate 324 mg (65 mg iron) tablet,delayed release (DR/EC) 324 mg PO DAILY RF: 0 Desenex 2 % powder 1 applic TP DAILY RF: 0 sennosides [Senna Laxative] 8.6 mg tablet 8.6 mg PO QHS PRNRF: 0 lithium carbonate 300 mg tablet 300 mg PO QHS RF: 0 lorazepam 1 mg tablet 1 mg PO BID PRNRF: 0 melatonin 3 mg capsule 3 mg PO HS PRN (Reason: sleep) Qty: 90 RF: 3 amlodipine 5 mg tablet 5 mg PO DAILY Qty: 30 RF: 11 carvedilol 12.5 mg tablet 12.5 mg PO BID Qty: 60 RF: 11 folic acid 1 mg tablet 1 mg PO DAILY Qty: 30 RF: 11 levothyroxine 50 mcg tablet 50 mcg PO DAILY Qty: 30 RF: 11 memantine 10 mg tablet 10 mg PO DAILY Qty: 30 RF: 11 pantoprazole 40 mg tablet,delayed release (DR/EC) 40 mg PO DAILY Qty: 30 RF: 11 acetaminophen [Tylenol Extra Strength] 500 mg tablet 1,000 mg PO TID PRN (Reason: pain) Qty: 270 RF: 3 levothyroxine 25 mcg tablet 25 mcg PO DAILY Qty: 30 RF: 2 quetiapine [Seroquel] 50 mg tablet 100 mg PO QHS RF: 0 Medical Decision Making 80 yo female with hx of bipolar, hypothyroidism ckd, htn, who comes in with altered mental status. Pt lives with her . Her daughter called prior to patient arrival stating patient is normally caox4 and calm but the last day or so has been more aggressive, yelling at family, no physical altercations per daughter. The patient arrives and when asked what her name is she states I don't know and says the same to where she is and time. She appears anxious on exam and will only say 1-2 words at a time without signs of being in respiratory distress. SHe is moving all her extremities and states she can feel soft touch when applied to all extremities. PERRL, no obvious facial assymetry, doesn't cooperate fully enough to evaluate all cranial nerves. She apparently has had intermittent right leg pain since March and on exam I fully ranged her hip, knee and ankle and she had no complaints of pain and no grimacing to indicate pain, no calf tenderness and no swelling. Given lack of falls reported by family and no signs of trauma and reassuring exam of the leg do not feel imaging indicated at the present time. Will obtain labs to evaluate for elevated lithium level, hyponatremia, ua to evaluate for uti and also head ct to evaluate for possible sdh, less likely to have cva but has had symptoms for over a day so would not be a lytic candidate regardless. while in CT patient started to scream that she could not lie down due to pain in the right leg, and was able to lift her leg up and clutch it with her arms by flexing at the hip, points to her right hip when asked where the pain is. Unlikely fx given the range of motion but while she is in CT will obtain ct pelvis labs and imaging show no significant findings and UAalso unremarkable. Upon chart review it appears when she had episodes of increased agitation in the past increasing her seroquel to 200mg at night has helped and so I ordered 100mg orally and she is now calm in the bed in no distress. I spoke with her daughter Lluvia who did not feel comfortable currently having her return home as she doesn't feel she has the support necessary to care for her. Will discuss with hospitalist about admission for agitation and altered mental status which is likely secondary to her bipolar disorder Differential Diagnosis Differential Diagnosis: uti, hyponatremia, sdh HPI General Mode of arrival: EMS . Date/Time Provider Initiated Documentation: 07/12/20 23:39 . Limitations to Documentation: altered mental status . History of Present Illness 80 year old F presents to the emergency department with the chief complaint of altered mental status, described as moderate, Patient started experiencing this day(s) (1) and it has been constant. No relieving factors improve symptom(s), No exacerbating factors reported . Patient notes no other symptoms.. Patient did receive the following treatments prior to arrival, none Related Data Home Medications Medication Instructions Recorded Confirmed cholecalciferol (vitamin D3) 2,000 unit PO DAILY 09/18/12 07/12/20 [Vitamin D3] multivitamin 1 ea PO DAILY 09/18/12 07/12/20 aspirin [Aspirin Low-Strength] 81 mg PO DAILY tab.chew 12/11/14 07/12/20 docusate sodium 100 mg capsule 100 mg PO BID 11/27/19 07/12/20 ferrous sulfate 324 mg (65 mg 324 mg PO DAILY 11/27/19 07/12/20 iron) tablet,delayed release miconazole nitrate 2 % topical 1 applic TP DAILY 11/27/19 07/12/20 powder sennosides 8.6 mg tablet 8.6 mg PO QHS PRN 11/27/19 04/08/20 lithium carbonate 300 mg tablet 300 mg PO QHS 12/31/19 07/12/20 lorazepam 1 mg tablet 1 mg PO BID PRN 01/12/20 07/12/20 melatonin 3 mg capsule 3 mg PO HS PRN #90 cap 01/19/20 07/12/20 amlodipine 5 mg tablet 5 mg PO DAILY #30 tab 02/05/20 07/12/20 carvedilol 12.5 mg tablet 12.5 mg PO BID #60 tab 02/05/20 07/12/20 folic acid 1 mg tablet 1 mg PO DAILY #30 tab 02/05/20 07/12/20 levothyroxine 50 mcg tablet 50 mcg PO DAILY #30 tab 02/05/20 07/12/20 memantine 10 mg tablet 10 mg PO DAILY #30 tab 02/05/20 07/12/20 pantoprazole 40 mg tablet,delayed 40 mg PO DAILY #30 tab 02/05/20 07/12/20 release acetaminophen 500 mg tablet 1,000 mg PO TID PRN #270 tab 02/20/20 07/12/20 levothyroxine 25 mcg tablet 25 mcg PO DAILY #30 tab-cap 04/15/20 07/12/20 quetiapine 50 mg tablet 100 mg PO QHS tab 07/12/20 07/12/20 Previous Rx's Medication Instructions Recorded melatonin 3 mg capsule 3 mg PO HS PRN #90 cap 01/19/20 amlodipine 5 mg tablet 5 mg PO DAILY #30 tab 02/05/20 carvedilol 12.5 mg tablet 12.5 mg PO BID #60 tab 02/05/20 folic acid 1 mg tablet 1 mg PO DAILY #30 tab 02/05/20 levothyroxine 50 mcg tablet 50 mcg PO DAILY #30 tab 02/05/20 memantine 10 mg tablet 10 mg PO DAILY #30 tab 02/05/20 pantoprazole 40 mg tablet,delayed 40 mg PO DAILY #30 tab 02/05/20 release acetaminophen 500 mg tablet 1,000 mg PO TID PRN #270 tab 02/20/20 levothyroxine 25 mcg tablet 25 mcg PO DAILY #30 tab-cap 04/15/20 Allergies Allergy/AdvReac Type Severity Reaction Status Date / Time fluoxetine Allergy Mild Verified 07/12/20 23:39 olanzapine Allergy Mild Verified 07/12/20 23:39 trazodone Allergy Mild Verified 07/12/20 23:39 haloperidol AdvReac Severe Contraindic Verified 07/12/20 23:39 ated Phenothiazines AdvReac Severe DYSTONIA Verified 07/12/20 23:39 General Stated Complaint: AMS/LOC GRANT: 3 Review of Systems Unobtainable due to mental condition Gastrointestinal Gastrointestinal: Denies vomiting [facility] Medical History (Updated 07/13/20 @ 01:20 by Reji Hobbs MD) Bipolar 2 disorder (01/30/17) Per Dr. 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 Surgical History S/P ORIF (open reduction internal fixation) fracture Family History Brother Heart disease Stroke Brother Heart disease Other Hypertension Social History Smoking/Tobacco Use Status: Never Smoking risk assessment performed?: Yes Alcohol Intake: former Drug use: Never Substance use type: does not use Number of Children: 2 Pets and animals: Yes Pets and animals: cat(s) Current gender identity: female What type of physical activity do you participate in: walking Frequency: daily Seatbelt use: always Do you feel safe at home: Yes Do you feel safe in your relationship?: Yes Exam Const General: anxious Orientation: alert HENMT Head: normal to inspection Ears: external ears normal General nose exam: external nose normal Mouth: moist mucous membranes Eyes General: appearance normal, both eyes and all related structures Neck Neck: normal visual inspection Resp Effort & Inspection: normal respiratory effort Cardio Rate: regular rate Skin General skin exam: no rashes or lesions noted Neuro General: patient alert Extrem General: normal to inspection Course Vital Signs Vital signs: Vital Signs Temperature 36.6 C 07/12/20 23:31 Pulse 95 H 07/12/20 23:31 Respiratory Rate 18 07/12/20 23:31 Blood Pressure 144/74 H 07/12/20 23:31 Pulse Oximetry 96 07/12/20 23:31 Temperature 36.6 C 07/12/20 23:31 Temperature Source Temporal Artery Scan 07/12/20 23:31 Pulse 95 H 07/12/20 23:31 Respiratory Rate 18 07/12/20 23:37 Respiratory Effort Non-Labored 07/12/20 23:37 Respiratory Depth Normal 07/12/20 23:37 Respiratory Pattern Normal 07/12/20 23:37 Blood Pressure 144/74 H 07/12/20 23:31 Blood Pressure Position Supine 07/12/20 23:31 Pulse Oximetry 96 07/12/20 23:31 Oxygen Delivery Method Room Air 07/12/20 23:31 Oxygen Flow Rate 0 07/12/20 23:31 Pain Level 3 07/12/20 23:31
--- NOTE | 2020-07-12 23:45 | DI.CT_ITS ---
EXAM: CT HEAD WO CLINICAL HISTORY: altered mental status TECHNIQUE: COMPARISON: CT CT HEAD WO from 05/02/2019 FINDINGS: Noncontrast cranial CT was performed. There is significant motion artifact on the images obtained. There is moderate generalized cerebral atrophy. There is no gross intracranial hemorrhage, mass effe ct, or midline shift. Orbital and temporal bone structures appear intact. No gross calvarial fractu re. Visualized portions of mastoid air cells and paranasal sinuses appear well aerated. IMPRESSION: Limited study. No evidence of acute intracranial injury. RADIATION DOSE DELIVERED: 791.67mGy.cm Total DLP
[2020-07-13] VITALS (7 sets, daily range): BP systolic 128–160; BP diastolic 69–86; PULSE 57–78; RESP 18–20; TEMP 36.2–36.9; O2SAT 95–99
[2020-07-13 00:09] LABS: Abs Immature Grans 0.02 10^3/uL (0.0-0.06); Absolute Basophil Count 0.02 10^3/uL (0.0-0.2); Absolute Eosinophil Count 0.27 10^3/uL (0.0-0.7); Absolute Lymphocyte Count 2.28 10^3/uL (1.2-3.4); Absolute Monocyte Count 0.58 10^3/uL (0.1-0.8); Absolute Neutrophil Count 3.62 10^3/uL (1.2-6.7); Basophils % 0.3; HCT 36.1 % (36.0-46.0); HGB 11.6 g/dL (11.2-15.7); Immature Grans % 0.3; Lymphocytes % 33.6; MCH 29.2 pg (27.0-33.0); MCHC 32.1 % (32.0-36.0); MCV 90.9 fL (80-95); MPV 10.9 fL (8.0-11.0); Monocytes % 8.5; Neutrophils % 53.3; Nucleated RBC 0 %; RBC 3.97 10^6/uL (3.93-5.22); RDW 14.2 % (11.7-14.6); RDW-SD 47.6 fL; WBC 6.79 10^3/uL (4.4-10.8)
[2020-07-13 00:15] LABS: Lithium 1.3 mmol/l (0.6-1.2)
[2020-07-13 00:16] LABS: Ammonia 30 umol/L (11-32)
[2020-07-13 00:20] LABS: ALT 20 U/L (14-59); AST 19 U/L (15-37); Albumin 3.7 g/dL (3.4-5.0); Alkaline Phosphatase 64 U/L (46-116); Anion Gap 10.8 mmol/L (3-11); BUN 23 mg/dL (7-18); Bilirubin, Total 0.2 mg/dL (0.2-1.0); CO2 22.2 mmol/L (21.0-32.0); CREATININE 1.2 mg/dL (0.55-1.02); Calcium 9.1 mg/dL (8.5-10.1); Chloride 109 mmol/L (98-107); Estimated GFR 43.12 (mL/min/1.73m2); Glucose 120 mg/dL (74-106); Magnesium 2.3 mg/dL (1.8-2.4); Sodium 142 mmol/L (136-145); Total Protein 7.4 g/dL (6.4-8.2)
[2020-07-13 00:22] LABS: Bilirubin, Direct < 0.05 mg/dL (0.00-0.20)
[2020-07-13 00:24] LABS: Bilirubin Negative (Negative); Blood Negative (Negative); Clarity Clear (Clear); Glucose Negative (Negative); Ketones Negative (Negative); Leukocyte Esterase Negative (Negative); Nitrite Negative (Negative); Urobilinogen 0.2 EU/dL (Up TO 0.2)
--- NOTE | 2020-07-13 00:26 | DI.CT_ITS ---
EXAM: CT PELVIC WO CLINICAL HISTORY: right hip pain TECHNIQUE: COMPARISON: CT CT CHEST/ABD/PEL WO from 04/19/2019 FINDINGS: CT of the pelvis was performed without contrast administration. No abdominal wall hernia. No free f luid in the pelvis. No free intraperitoneal air. Normal caliber of visualized abdominal aorta. Not e is made of constipation. There are degenerative changes of the lower lumbar spine, the SI joints, and the hips. There is no e vidence acute fracture or dislocation. IMPRESSION: No evidence of acute pelvic fracture. RADIATION DOSE DELIVERED: 354.07mGy.cm Total DLP
[2020-07-13 00:29] LABS: *AMPHETAMINES SCREEN URINE Negative (Negative); *BARBITURATES SCREEN URINE Negative (Negative); *BENZODIAZEPINES SCREEN URINE Negative (Negative); Cannabinoids THC Negative (Negative); Cocaine Screen,Urine Negative (Negative); METHADONE URINE SCREEN Negative (Negative); OPIATES URINE SCREEN Negative (Negative)
[2020-07-13 00:32] LABS: ETHANOL BLOOD < 3.0 mg/dL (<3)
[2020-07-13 00:33] LABS: Tricyclic Antidepressants POSITIVE (Negative)
--- NOTE | 2020-07-13 00:49 | DI.VRAD_ITS ---
PROCEDURE INFORMATION: Exam: CT Head Without Contrast Exam date and time: 07/12/2020 12:25 AM Age: 80 years old Clinical indication: Altered mental status/memory loss; Confusion or disorientation; Patient HX: Confusion/ AMS TECHNIQUE: Imaging protocol: Computed tomography of the head without contrast. Radiation optimization: All CT scans at this facility use at least one of these dose optimization techniques: automated exposure control; mA and/or kV adjustment per patient size (includes targeted exams where dose is matched to clinical indication); or iterative reconstruction. COMPARISON: CT HEAD WO 05/02/2019 9:30 AM FINDINGS: Brain: Generalized atrophy and chronic white matter ischemic changes. There is no mass, acute hemorrhage or acute infarct. Cerebral ventricles: No ventriculomegaly. Bones/joints: Unremarkable. No acute fracture. Paranasal sinuses: Visualized sinuses are unremarkable. No fluid levels. Mastoid air cells: Visualized mastoid air cells are well aerated. Soft tissues: Unremarkable. IMPRESSION: No acute abnormality. Dictated and Authenticated by: Kiera Vincent MD. Ordering:LUIZ Mendoza MD
[2020-07-13] MEDS: QUEtiapine 100 MG TAB PO (01:01)
--- NOTE | 2020-07-13 01:02 | DI.VRAD_ITS ---
PROCEDURE INFORMATION: Exam: CT Pelvis Without Contrast; Skeletal Exam date and time: 07/13/2020 12:38 AM Age: 80 years old Clinical indication: Patient HX: Right hip pain, confusion TECHNIQUE: Imaging protocol: Computed tomography images of the pelvis without contrast. Exam focused on the skeletal structures. Radiation optimization: All CT scans at this facility use at least one of these dose optimization techniques: automated exposure control; mA and/or kV adjustment per patient size (includes targeted exams where dose is matched to clinical indication); or iterative reconstruction. COMPARISON: CT CHEST/ABD/PEL WO 04/19/2019 5:17 AM FINDINGS: Bones/joints: Degenerative changes of the spine and scoliosis, without acute osseous abnormality. No acute fracture. No dislocation. Soft tissues: There is a small fat-containing umbilical hernia. IMPRESSION: No acute findings. Additional findings as described. Dictated and Authenticated by: Kiera Vincent MD. Ordering:LUIZ Mendoza MD
[2020-07-13 01:44] LABS: FREE T4 0.96 ng/dL (0.76-1.46)
[2020-07-13 01:44] LABS: Source Nasopharynx
[2020-07-13 02:22] LABS: COVID-19 PCR Negative (Negative); Influenza A PCR Negative (Negative); Influenza B PCR Negative (Negative); RSV PCR Negative (Negative)
--- NOTE | 2020-07-13 03:13 | HPE_ITS ---
Date of service: 07/13/20 Time of Service: 03:13 Assessment and Plan Assessment and plan (1) Agitation: Status: Acute Assessment and plan: Most consistent with developing manic episode. Looking back over her history she has had previous episodes of agitation that responded to increased quetiapine. I agree with increasing to 200mg qhs. She has a history of even more severe depression needing ECT, follow mood. Memantine is a new medication in the past year. Presumably given for cognitive impairment, but this can cause agitation so I will withhold this for now. Pain may also be contributing, see below. (2) Bipolar 2 disorder: Status: Chronic Assessment and plan: On chronic lithium and quetiaptine. [place] level high, though was much lower on the same dose. Discussed using as where she is not been taking her medication for the last 2 days. Clearly she is having difficulty managing her medication as an outpatient, and this is further evidence she likely needs additional nursing care. Clarify the dose and long-acting versus short acting formulation with pharmacy today. (3) Hypothyroidism: Status: Chronic Assessment and plan: TSH above ideal range, but has been on iron so I think affecting absorbtion. Will stop iron rather than increase dose. Follow as outpatient in 6 weeks. Qualifiers: Hypothyroidism type: unspecified Qualified Code(s): E03.9 - Hypothyroidism, unspecified (4) Anemia: Status: Chronic Assessment and plan: Normalized on past 2 CBCs including on admission with normal MCV. Iron likely affecting thyroid absorbtion. Stop iron. (5) Chronic kidney disease, stage III (moderate): Status: Chronic Assessment and plan: Stable at baseline. Follow with medication changes (6) Essential hypertension: Status: Chronic Assessment and plan: Blood pressures high with agitation, but not at dangerous levels. Continue amlodipine. JOSE/ARB not recommended per nephrology. (7) DJD (degenerative joint disease), lumbar: Status: Acute Assessment and plan: CT reviewed. I think pain is from her spine, though she is not cooperative with exam. Acetaminophen prn for now. Consider PT if limiting mobility when she is less agitated. She has history of DVT but was on the other side, exam not consistent with this. (8) DVT prophylaxis: Status: Inactive Assessment and plan: lovenox (9) Discharge planning issues: Status: Acute Assessment and plan: plan to discharge home pending stability of mood/behavior. History of Present Illness History of Present Illness Chief Complaint: agitation Narrative: 80 yo F with history of bipolar on lithium who is brought by daughter to the ED with increasing agitation, refusing her medication and increasing combativeness at home. Patient is not able to give her own history, though she does respond to some directed yes or no questions. History per the family and emergency room record. Family states over the past 1 to 2 weeks she is steadily been more depressed, irritable, and refusing some of her medications. She states for the past 2 days she is not taking any of her medications, and has not been able to take care of herself or let them take care of her. They had previously had a plan of admission to a [facility] facility in the week prior to admission, but with increasing combativeness this they were not able to place her. Review of Systems Narrative: partially limited by mental status, lack of cooperation with interview Constitutional Constitutional: Denies fever(s), Denies poor appetite, Denies weight gain and Denies weight loss Eyes Eyes: Denies change in vision and Denies other visual disturbances ENT Ears, Nose, Mouth, and Throat: Denies nasal congestion, Denies nasal discharge and Denies sore throat Cardiovascular Cardiovascular: Denies chest pain and Denies palpitations Respiratory Respiratory: Denies chest congestion and Denies cough Gastrointestinal Gastrointestinal: Denies change in stool character and Denies vomiting Neurologic Neurologic: Reports behavioral changes, Denies localized weakness, Denies sensory deficit and Denies tremor(s) Psychiatric Psychiatric: Reports behavioral changes and Reports irritability Comments: doesn't express AH/VH or SI Endocrine Endocrine: Denies palpitations Hematologic/Lymphatic Hematologic/Lymphatic: Reports easy bruising [facility] Medical History (Updated 07/13/20 @ 03:28 by Garcia Gerardo) Bipolar 2 disorder (01/30/17) Per Dr. Heath, with severe treatment resistant dpressive phases vs treatment resistant depression 01/25/17 CKD (chronic kidney disease) Deep vein thrombosis (12/08/13) ECT for depression, [facility] GERD (gastroesophageal reflux disease) HLD (hyperlipidemia) HTN (hypertension) Hypothyroidism (11/11/12) Tardive dyskinesia (04/17/16) Dr. 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 Surgical History S/P ORIF (open reduction internal fixation) fracture Family History Brother Heart disease Stroke Brother Heart disease Other Hypertension Social History Smoking/Tobacco Use Status: Never Smoking risk assessment performed?: Yes Alcohol Intake: former Drug use: Never Substance use type: does not use Number of Children: 2 Pets and animals: Yes Pets and animals: cat(s) Current gender identity: female What type of physical activity do you participate in: walking Frequency: daily Seatbelt use: always Do you feel safe at home: Yes Do you feel safe in your relationship?: Yes Meds Home Medications and Allergies Home Medications Medication Instructions Recorded Confirmed Type cholecalciferol (vitamin D3) 2,000 unit PO DAILY 09/18/12 07/12/20 History [Vitamin D3] multivitamin 1 ea PO DAILY 09/18/12 07/12/20 History aspirin [Aspirin Low-Strength] 81 mg PO DAILY tab.chew 12/11/14 07/12/20 History docusate sodium 100 mg capsule 100 mg PO BID 11/27/19 07/12/20 History ferrous sulfate 324 mg (65 mg 324 mg PO DAILY 11/27/19 07/12/20 History iron) tablet,delayed release miconazole nitrate 2 % topical 1 applic TP DAILY 11/27/19 07/12/20 History powder sennosides 8.6 mg tablet 8.6 mg PO QHS PRN 11/27/19 04/08/20 History lithium carbonate 300 mg tablet 300 mg PO QHS 12/31/19 07/12/20 History lorazepam 1 mg tablet 1 mg PO BID PRN 01/12/20 07/12/20 History melatonin 3 mg capsule 3 mg PO HS PRN #90 cap 01/19/20 07/12/20 Rx amlodipine 5 mg tablet 5 mg PO DAILY #30 tab 02/05/20 07/12/20 Rx carvedilol 12.5 mg tablet 12.5 mg PO BID #60 tab 02/05/20 07/12/20 Rx folic acid 1 mg tablet 1 mg PO DAILY #30 tab 02/05/20 07/12/20 Rx levothyroxine 50 mcg tablet 50 mcg PO DAILY #30 tab 02/05/20 07/12/20 Rx memantine 10 mg tablet 10 mg PO DAILY #30 tab 02/05/20 07/12/20 Rx pantoprazole 40 mg tablet,delayed 40 mg PO DAILY #30 tab 02/05/20 07/12/20 Rx release acetaminophen 500 mg tablet 1,000 mg PO TID PRN #270 tab 02/20/20 07/12/20 Rx levothyroxine 25 mcg tablet 25 mcg PO DAILY #30 tab-cap 04/15/20 07/12/20 Rx quetiapine 50 mg tablet 100 mg PO QHS tab 07/12/20 07/12/20 History Allergies Allergy/AdvReac Type Severity Reaction Status Date / Time fluoxetine Allergy Mild Verified 07/12/20 23:39 olanzapine Allergy Mild Verified 07/12/20 23:39 trazodone Allergy Mild Verified 07/12/20 23:39 haloperidol AdvReac Severe Contraindic Verified 07/12/20 23:39 ated Phenothiazines AdvReac Severe DYSTONIA Verified 07/12/20 23:39 Exam Narrative Exam Narrative: GEN: Alert and oriented x3, irritable and not cooperative with exam. She is breathing heavily when she talks, but normally at rest. HEENT: Head atraumatic. Conjunctiva clear, no icterus. PEERL, EOMI. no rhinorrhea. MMM, OP benign. Neck is supple with no masses or lymphadenopathy LUNGS: CTAB with normal effort CV: RRR with no murmurs, gallops, or rubs. ABD: +BS, soft, NT/ND EXT: no cyanosis, clubbing, or edema MSK: No joint redness or swelling. Does not allow exam of the right leg. She is not focally tender at the greater trochanter. She is able to move the hip and flex the knee without obvious worsening pain. NEURO: CN 2-12 grossly intact. Normal movement of 4 extremities. Normal speech and coordination SKIN: No rashs or open wounds. PSYCH: Irritable, somewhat depressed. No overt hallucinations. Results Imaging CT scan - pelvis: report reviewed Additional studies: CT pelvis without contrast: No evidence of acute pelvic fracture. CT head without contrast: No evidence of acute intracranial injury. Labs Result diagrams: 07/12/20 23:55 07/12/20 23:55 Labs: Laboratory Results - last 24 hr 07/12/20 07/12/20 07/12/20 23:49 23:55 23:55 WBC RBC Hgb Hct MCV MCH MCHC RDW Plt Count MPV Immature Gran % Neutrophils % Lymphocytes % Monocytes % Eosinophils % Basophils % Nucleated RBC % Absolute Neutrophils Absolute Lymphocytes Absolute Monocytes Absolute Eosinophils Absolute Basophils Sodium 142 Potassium 4.0 Chloride 109 H Carbon Dioxide 22.2 Anion Gap 10.8 BUN 23 H Creatinine 1.2 H Estimated GFR/1.73 m2 43.12 Glucose 120 H Calcium 9.1 Magnesium 2.3 Total Bilirubin 0.2 Conjugated Bilirubin < 0.05 AST 19 ALT 20 Alkaline Phosphatase 64 Ammonia Total Protein 7.4 Albumin 3.7 TSH 7.30 H Free T4 0.96 Urine Color Urine Clarity Urine pH Ur Specific [place] Urine Protein Urine Ketones Urine Blood Urine Nitrite Urine Bilirubin Urine Urobilinogen Ur Leukocyte Esterase Urine Glucose Urine Opiates Screen Urine Methadone Screen Ur Barbiturates Screen Ur Tricyclics Screen Ur Amphetamines Screen U Benzodiazepines Scrn [place] 1.3 H Urine Cocaine Screen Ur THC Screen Ethyl Alcohol < 3.0 COVID-19 Source SARS-CoV-2 (PCR) Influenza Type A (PCR) Influenza Type B (PCR) RSV (PCR) 07/12/20 07/12/20 07/13/20 23:55 23:55 00:05 WBC 6.79 RBC 3.97 Hgb 11.6 Hct 36.1 MCV 90.9 MCH 29.2 MCHC 32.1 RDW 14.2 Plt Count MPV 10.9 Immature Gran % 0.3 Neutrophils % 53.3 Lymphocytes % 33.6 Monocytes % 8.5 Eosinophils % 4.0 Basophils % 0.3 Nucleated RBC % 0 Absolute Neutrophils 3.62 Absolute Lymphocytes 2.28 Absolute Monocytes 0.58 Absolute Eosinophils 0.27 Absolute Basophils 0.02 Sodium Potassium Chloride Carbon Dioxide Anion Gap BUN Creatinine Estimated GFR/1.73 m2 Glucose Calcium Magnesium Total Bilirubin Conjugated Bilirubin AST ALT Alkaline Phosphatase Ammonia 30 Total Protein Albumin TSH Free T4 Urine Color Urine Clarity Urine pH Ur Specific [place] Urine Protein Urine Ketones Urine Blood Urine Nitrite Urine Bilirubin Urine Urobilinogen Ur Leukocyte Esterase Urine Glucose Urine Opiates Screen Negative Urine Methadone Screen Negative Ur Barbiturates Screen Negative Ur Tricyclics Screen Positive A Ur Amphetamines Screen Negative U Benzodiazepines Scrn Negative [place] Urine Cocaine Screen Negative Ur THC Screen Negative Ethyl Alcohol COVID-19 Source SARS-CoV-2 (PCR) Influenza Type A (PCR) Influenza Type B (PCR) RSV (PCR) 07/13/20 07/13/20 00:05 01:40 WBC RBC Hgb Hct MCV MCH MCHC RDW Plt Count MPV Immature Gran % Neutrophils % Lymphocytes % Monocytes % Eosinophils % Basophils % Nucleated RBC % Absolute Neutrophils Absolute Lymphocytes Absolute Monocytes Absolute Eosinophils Absolute Basophils Sodium Potassium Chloride Carbon Dioxide Anion Gap BUN Creatinine Estimated GFR/1.73 m2 Glucose Calcium Magnesium Total Bilirubin Conjugated Bilirubin AST ALT Alkaline Phosphatase Ammonia Total Protein Albumin TSH Free T4 Urine Color Yellow Urine Clarity Clear Urine pH 7.0 Ur Specific [place] 1.020 Urine Protein Negative Urine Ketones Negative Urine Blood Negative Urine Nitrite Negative Urine Bilirubin Negative Urine Urobilinogen 0.2 Ur Leukocyte Esterase Negative Urine Glucose Negative Urine Opiates Screen Urine Methadone Screen Ur Barbiturates Screen Ur Tricyclics Screen Ur Amphetamines Screen U Benzodiazepines Scrn [place] Urine Cocaine Screen Ur THC Screen Ethyl Alcohol COVID-19 Source Nasopharynx SARS-CoV-2 (PCR) Negative Influenza Type A (PCR) Negative Influenza Type B (PCR) Negative RSV (PCR) Negative Last Vital Signs Temp 36.3 C L 07/13/20 02:42 Pulse 78 07/13/20 02:42 Resp 20 07/13/20 02:42 BP 160/86 H 07/13/20 02:42 Pulse Ox 96 07/13/20 02:42 COVID-19 Screening Have you, or household traveled for leisure in last 14 days?: No Had IN PERSON contact w/suspected or confirmed C-19 person: No
[2020-07-13] MEDS: Levothyroxine 50 MCG TAB 75 MCG PO (05:57)
[2020-07-13] MEDS: Acetaminophen 500 MG TAB 1000 MG PO ×2 (08:29→13:23)
[2020-07-13] MEDS: Carvedilol 12.5 MG TAB PO ×2 (08:31→17:22)
[2020-07-13] MEDS: Aspirin 81 MG CHEW PO (08:31)
[2020-07-13] MEDS: amLODIPine 5 MG TAB PO (08:31)
[2020-07-13] MEDS: Folic Acid 1 MG TAB PO (08:31)
[2020-07-13] MEDS: Cholecalciferol (Vitamin D3) 1,000 UNIT TAB 2000 UNITS PO (08:31)
[2020-07-13] MEDS: Pantoprazole 40 MG TABCR PO (08:31)
[2020-07-13] MEDS: Enoxaparin 40 MG/0.4 ML SYR SC (08:32)
--- NOTE | 2020-07-13 09:43 | PDOC.CMIN ---
- If Service Date Differs Date of service: 07/13/20 Time of Service: 09:44 Care Management Initial Assess REASON FOR HOSPITALIZATION:: Agitation PAST MEDICAL HISTORY/PAST SURGICAL HISTORY:: Medical History (Updated 07/13/20 @ 03:28 by Garcia Gerardo). Bipolar 2 disorder (01/30/17). Per Dr. Heath, with severe treatment resistant dpressive phases vs treatment resistant depression 01/25/17 RH. CKD (chronic kidney disease). Deep vein thrombosis (12/08/13). ECT for depression, [facility] [place]. GERD (gastroesophageal reflux disease). HLD (hyperlipidemia). HTN (hypertension). Hypothyroidism (11/11/12). Tardive dyskinesia (04/17/16). Dr. Esther Heath. 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 Surgical History . S/P ORIF (open reduction internal fixation) fracture PREVIOUS FUNCTIONAL STATUS/SOCIAL/FAMILY SUPPORTS:: Stacy lives in a single family home in [place], [place] with her Laltio. She has 2 children; one of them, Lluvia Briceno, lives locally and is supportive. Lalito does most of the shopping and cooking however Stacy is able to perform most of her ADLs. CURRENT FUNCTIONAL STATUS:: Stacy was sitting up in a chair when met with her. She appeared hesitant to talk to and repeatedly told CM that she does not want to go anywhere except home. Stacy seemed to have a lot of difficulty finding words to express her thoughts, as though she could not remember. She did manage to tell that her daughter was upset with her because she did not know which medications she needed to take and when to take them. Per her daughter, Stacy did not refuse any doses of medication as was told to the providers on admission except for Tylenol because she thought she had already taken it. Stacy also shared that sometimes she has really bad dreams. She stated that she thought this was from the Tylenol she is taking for her back pain, as her daughter told her it was possible. Her daughter confirmed this. ADVANCE DIRECTIVES:: Marcus Orosco [facility] - on file at [facility] Has patient been provided with info about the portal/API?: Yes Did the patient sign up for the portal?: No CODE STATUS:: Full Code INSURANCE COVERAGE / FINANCIAL ISSUES:: Medicare. AARP CURRENT HOME/COMMUNITY SERVICES/EQUIPMENT:: has been seen by [facility] in past PRIMARY CARE PHYSICIAN:: Patricia Goss POTENTIAL DISCHARGE NEEDS:: Stacy may need either additional supports in the home or possibly placement in a SNF PATIENT/FAMILY EDUCATION NEEDS:: Discharge plan, limitations, follow up plan, Ask Me Three TRANSPORTATION:: to be determined by disposition PLAN:: Stacy will likely be discharged home with new home health services for medication management. She will follow up with her PCP and discharge plan of care and transport home with family. CM will continue to support patient and family and assess for discharge planning needs.
[2020-07-13] MEDS: Heparin 500 UNITS/5 ML SYRINGE IVP (11:56)
[2020-07-13] MEDS: Normal Saline Flush 10 ML SYR IVP (11:56)
--- NOTE | 2020-07-13 16:23 | PGE_ITS ---
Date of Service Date of service: 07/13/20 Time of Service: 16:24 Subjective Subjective Patient reports: no new complaints Interval history since last seen: Patient sitting up in chair working on [employer], calm, believes she is here because of her leg. No complaints. Objective Last Vital Signs Temp 36.8 C 07/13/20 11:17 Pulse 57 L 07/13/20 11:17 Resp 18 07/13/20 11:17 BP 157/69 H 07/13/20 11:17 Pulse Ox 97 07/13/20 11:17 Laboratory Results - last 24 hr 07/12/20 07/12/20 07/12/20 23:49 23:55 23:55 WBC RBC Hgb Hct MCV MCH MCHC RDW Plt Count MPV Immature Gran % Neutrophils % Lymphocytes % Monocytes % Eosinophils % Basophils % Nucleated RBC % Absolute Neutrophils Absolute Lymphocytes Absolute Monocytes Absolute Eosinophils Absolute Basophils Sodium 142 Potassium 4.0 Chloride 109 H Carbon Dioxide 22.2 Anion Gap 10.8 BUN 23 H Creatinine 1.2 H Estimated GFR/1.73 m2 43.12 Glucose 120 H Calcium 9.1 Magnesium 2.3 Total Bilirubin 0.2 Conjugated Bilirubin < 0.05 AST 19 ALT 20 Alkaline Phosphatase 64 Ammonia Total Protein 7.4 Albumin 3.7 TSH 7.30 H Free T4 0.96 Urine Color Urine Clarity Urine pH Ur Specific [place] Urine Protein Urine Ketones Urine Blood Urine Nitrite Urine Bilirubin Urine Urobilinogen Ur Leukocyte Esterase Urine Glucose Urine Opiates Screen Urine Methadone Screen Ur Barbiturates Screen Ur Tricyclics Screen Ur Amphetamines Screen U Benzodiazepines Scrn [place] 1.3 H Urine Cocaine Screen Ur THC Screen Ethyl Alcohol < 3.0 COVID-19 Source SARS-CoV-2 (PCR) Influenza Type A (PCR) Influenza Type B (PCR) RSV (PCR) 07/12/20 07/12/20 07/13/20 23:55 23:55 00:05 WBC 6.79 RBC 3.97 Hgb 11.6 Hct 36.1 MCV 90.9 MCH 29.2 MCHC 32.1 RDW 14.2 Plt Count MPV 10.9 Immature Gran % 0.3 Neutrophils % 53.3 Lymphocytes % 33.6 Monocytes % 8.5 Eosinophils % 4.0 Basophils % 0.3 Nucleated RBC % 0 Absolute Neutrophils 3.62 Absolute Lymphocytes 2.28 Absolute Monocytes 0.58 Absolute Eosinophils 0.27 Absolute Basophils 0.02 Sodium Potassium Chloride Carbon Dioxide Anion Gap BUN Creatinine Estimated GFR/1.73 m2 Glucose Calcium Magnesium Total Bilirubin Conjugated Bilirubin AST ALT Alkaline Phosphatase Ammonia 30 Total Protein Albumin TSH Free T4 Urine Color Urine Clarity Urine pH Ur Specific [place] Urine Protein Urine Ketones Urine Blood Urine Nitrite Urine Bilirubin Urine Urobilinogen Ur Leukocyte Esterase Urine Glucose Urine Opiates Screen Negative Urine Methadone Screen Negative Ur Barbiturates Screen Negative Ur Tricyclics Screen Positive A Ur Amphetamines Screen Negative U Benzodiazepines Scrn Negative [place] Urine Cocaine Screen Negative Ur THC Screen Negative Ethyl Alcohol COVID-19 Source SARS-CoV-2 (PCR) Influenza Type A (PCR) Influenza Type B (PCR) RSV (PCR) 07/13/20 07/13/20 00:05 01:40 WBC RBC Hgb Hct MCV MCH MCHC RDW Plt Count MPV Immature Gran % Neutrophils % Lymphocytes % Monocytes % Eosinophils % Basophils % Nucleated RBC % Absolute Neutrophils Absolute Lymphocytes Absolute Monocytes Absolute Eosinophils Absolute Basophils Sodium Potassium Chloride Carbon Dioxide Anion Gap BUN Creatinine Estimated GFR/1.73 m2 Glucose Calcium Magnesium Total Bilirubin Conjugated Bilirubin AST ALT Alkaline Phosphatase [place]mon[place] Total Protein Albumin TSH Free T4 Urine Color Yellow Urine Clarity Clear Urine pH 7.0 Ur Specific [place] 1.020 Urine Protein Negative Urine Ketones Negative Urine Blood Negative Urine Nitrite Negative Urine Bilirubin Negative Urine Urobilinogen 0.2 Ur Leukocyte Esterase Negative Urine Glucose Negative Urine Opiates Screen Urine Methadone Screen Ur Barbiturates Screen Ur Tricyclics Screen Ur Amphetamines Screen U Benzodiazepines Scrn [place] Urine Cocaine Screen Ur THC Screen Ethyl Alcohol COVID-19 Source Nasopharynx SARS-CoV-2 (PCR) Negative Influenza Type A (PCR) Negative Influenza Type B (PCR) Negative RSV (PCR) Negative
[2020-07-13] MEDS: Lithium Carbonate 150 MG CAP 300 MG PO (21:10)
[2020-07-13] MEDS: QUEtiapine 100 MG TAB 200 MG PO (21:10)
[2020-07-13] MEDS: LORazepam 1 MG TAB PO (22:04)
[2020-07-14 04:15] VITALS: BP 129/71; PULSE 71; RESP 17; TEMP 36.7; O2SAT 97
[2020-07-14] MEDS: Levothyroxine 50 MCG TAB 75 MCG PO (06:18)
[2020-07-14 07:24] VITALS: BP 126/73; PULSE 66; RESP 16; TEMP 36.1; O2SAT 96
[2020-07-14] MEDS: amLODIPine 5 MG TAB PO (07:36)
[2020-07-14] MEDS: Cholecalciferol (Vitamin D3) 1,000 UNIT TAB 2000 UNITS PO (07:36)
[2020-07-14] MEDS: Folic Acid 1 MG TAB PO (07:36)
[2020-07-14] MEDS: Pantoprazole 40 MG TABCR PO (07:36)
[2020-07-14] MEDS: Carvedilol 12.5 MG TAB PO (07:36)
[2020-07-14] MEDS: Aspirin 81 MG CHEW PO (07:36)
[2020-07-14] MEDS: LORazepam 1 MG TAB PO (07:36)
[2020-07-14] MEDS: Acetaminophen 500 MG TAB 1000 MG PO (07:37)
[2020-07-14] MEDS: Enoxaparin 40 MG/0.4 ML SYR SC (08:19)
--- NOTE | 2020-07-14 08:58 | PDOC.CMPRO ---
- If Service Date Differs Date of service: 07/14/20 Time of Service: 08:58 Care Management Progress Note S/O: A: Stacy is an 80 year old woman admitted on with agitation P:Stacy will likely be discharged home with new home health services for medication management. She will follow up with her PCP and discharge plan of care and transport home with family. CM will continue to support patient and family and assess for discharge planning needs.
[2020-07-14] MEDS: Docusate Sodium 100 MG CAP PO (09:26)
[2020-07-14] MEDS: Polyethylene Glycol 3350 17 GM PACKET PO (09:26)
[2020-07-14 11:32] VITALS: BP 113/73; PULSE 70; RESP 18; TEMP 36.3; O2SAT 97
--- NOTE | 2020-07-14 12:32 | DSE_ITS ---
Date of service: 07/14/20 Time of Service: 12:33 DS: Diagnosis Discharge Diagnosis (1) Agitation: Status: Acute (2) Bipolar 2 disorder: Status: Chronic (3) Hypothyroidism: Status: Chronic (4) Anemia: Status: Chronic (5) Chronic kidney disease, stage III (moderate): Status: Chronic (6) Essential hypertension: Status: Chronic (7) DJD (degenerative joint disease), lumbar: Status: Acute Discharge Plan Disposition Patient Disposition: HOME Condition: Stable Discharge Details Reason For Visit: AGITATION Admit Date/Time: 07/13/20 01:28 Admit Provider: Garcia Gerardo Attending Provider: Garcia Gerardo Primary Care Provider: Patricia Goss [facility] Course Hospital Course: This is an 80 yo female with history of bipolar on lithium who is brought to the ED by her daughter with increasing agitation, refusing her medication and increasing combativeness at home. Patient is not able to give her own history, though she does respond to some directed yes or no questions. History per the family and emergency room record which includes a 1 to 2 week history of steadily being more depressed, irritable, and refusing some of her medications. Her work up in the ED showed a TSH of 7.3, lithium level of 1.3, otherwise unremarkable work up. she was referred to observation for further monitoring and evaluation. Her seroquel dose was increased to 200 mg nightly, her iron and memantine placed on hold. Her behaviors resolved and she was cooperative, taking her medications as directed. she should follow up outpatient with TSH level in 4-6 weeks and resume other medications per pcp. discharge plan discussed with DR Marty Gonzalez and New Rx's Prescriptions: Continued multivitamin 1 EACH tablet 1 ea PO DAILY RF: 0 cholecalciferol (vitamin D3) [Vitamin D3] 2,000 UNIT tablet 2,000 unit PO DAILY RF: 0 aspirin [Aspirin Low-Strength] 81 MG tablet,chewable 81 mg PO DAILY RF: 0 docusate sodium 100 mg capsule 100 mg PO BID RF: 0 Desenex 2 % powder 1 applic TP DAILY RF: 0 sennosides [Senna Laxative] 8.6 mg tablet 8.6 mg PO QHS PRNRF: 0 lithium carbonate 300 mg tablet 300 mg PO QHS RF: 0 lorazepam 1 mg tablet 1 mg PO BID PRNRF: 0 melatonin 3 mg capsule 3 mg PO HS PRN (Reason: sleep) Qty: 90 RF: 3 amlodipine 5 mg tablet 5 mg PO DAILY Qty: 30 RF: 11 carvedilol 12.5 mg tablet 12.5 mg PO BID Qty: 60 RF: 11 folic acid 1 mg tablet 1 mg PO DAILY Qty: 30 RF: 11 levothyroxine 50 mcg tablet 50 mcg PO DAILY Qty: 30 RF: 11 pantoprazole 40 mg tablet,delayed release (DR/EC) 40 mg PO DAILY Qty: 30 RF: 11 acetaminophen [Tylenol Extra Strength] 500 mg tablet 1,000 mg PO TID PRN (Reason: pain) Qty: 270 RF: 3 levothyroxine 25 mcg tablet 25 mcg PO DAILY Qty: 30 RF: 2 Changed quetiapine [Seroquel] 50 mg tablet 200 mg PO QHS Qty: 0 RF: 0 Discontinued ferrous sulfate 324 mg (65 mg iron) tablet,delayed release (DR/EC) 324 mg PO DAILY RF: 0 memantine 10 mg tablet 10 mg PO DAILY Qty: 30 RF: 11 Discharge Instructions Instructions: Altered Mental Status (ED) Additional Instructions: your TSH level was elevated and thought to be due use with iron supplementation. this has been discontinued and you should continue your usual synthyroid dose and recheck level in 6 weeks. Stand Alone Forms: Nursing Discharge Form Referrals: Patricia Goss NP [Primary Care Provider] - 07/22/20 10:00 am Activity:: Activity as Tolerated Equipment/Supplies:: No Equipment Needed Diet:: As Tolerated Discharge Orders Discharge Orders: Discharge Order (Routine); Ordered 07/14/20 Ordered By: Alejandra Trujillo Other Ambulatory Orders: TSH (Routine) Timeframe: 4 Weeks Location: None Selected Ordered By: Alejandra Trujillo DS: Summary Time Spent with Patient providing and/or coordinating discharge services: Less than 30 minutes Status at Discharge Functional status at discharge: independent ambulation Overall status at discharge: patient is progressing back to baseline Mental Status: mental status grossly normal Speech and Movement: speech and movement normal Mood: congruent mood Affect: normal affect Exam Const General: cooperative, healthy appearing, comfortable and no acute distress Nutritional Appearance: average body habitus Orientation: alert HENMT Head: normal to inspection, normocephalic and atraumatic General nose exam: external nose normal Mouth: moist mucous membranes Eyes General: appearance normal, both eyes and all related structures Neck Neck: normal visual inspection Resp Effort & Inspection: normal respiratory effort Cardio Rate: regular rate Rhythm: regular rhythm GI Inspection: normal to inspection Palpation: soft Auscultation: normal bowel sounds Skin General skin exam: no rashes or lesions noted Neuro General: patient alert and patient awake Extrem General: normal to inspection and full ROM Psych Mental Status: mental status grossly normal Speech and Movement: speech and movement normal Mood: congruent mood Affect: normal affect DS: Data Vitals/I&O Vitals and I&O: Vital Signs Temperature 36.3 C L 07/14/20 11:32 Temperature Source Tympanic 07/14/20 11:32 Pulse 70 07/14/20 11:32 Pulse Rhythm Regular 07/14/20 02:47 Respiratory Rate 18 07/14/20 11:32 Respiratory Effort 07/14/20 02:47 Respiratory Depth Normal 07/14/20 02:47 Respiratory Pattern Normal 07/14/20 02:47 Blood Pressure 113/73 07/14/20 11:32 Blood Pressure Position Supine 07/12/20 23:31 Pulse Oximetry 97 07/14/20 11:32 Oxygen Delivery Method Room Air 07/14/20 11:32 Oxygen Flow Rate 0 07/14/20 11:32 Pain Level 2 07/14/20 12:22 Comment 07/14/20 07:24 Intake & Output 07/13/20 07/14/20 07/14/20 23:59 11:59 23:59 Intake Total 520 / 1525 1500 / 1500 Output Total 100 / 400 Balance 420 / 1125 1500 / 1500 Weight 60.6 kg Intake: Oral 520 / 1490 1500 / 1500 Output: Urine 100 / 400 Other: Urine Color Yellow Yellow Urine Appearance Clear Clear Urine Odor Normal Comment voided large amount into toilet Void x1 in the toilet. Voiding Methods Toilet Toilet [facility] Medical History (Updated 07/13/20 @ 03:28 by Garcia Gerardo) Bipolar 2 disorder (01/30/17) Per Dr. 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
--- NOTE | 2020-07-14 19:18 | PDOC.CMDIS ---
- If Service Date Differs Date of service: 07/14/20 Time of Service: 19:18 LACE Index Scoring Tool - Questions: Length of Stay (in days): 1 Acuity (Admit via E.D.?): Yes Comorbidities: Liver or Renal Disease E.D. Visits: 1 - Answers: Total Score: 10 Risk of Readmission: High Risk Care Management Discharge Reason for Hospitalization: Agitation Discharge Plan: Stacy will be discharged home with no new services. She will follow up with her PCP and discharge plan of care and transport home with family. Patient/Family Education Needs: Discharge plan, limitations, follow up plan, Ask Me Three
== END 2020-07-14 14:06 | disposition home or self-care (01) ==
LOC: ER 07-13 01:48 → MS 07-13 02:36
PROVIDERS: Admitting Provider Family Medicine; Emergency Provider Emergency Medicine; PCP Nurse Practitioner Family; Visit Provider Family Medicine
DX: F31.81 Bipolar II disorder (principal); E03.9 Hypothyroidism, unspecified; I12.9 Hypertensive chronic kidney disease with stage 1 through stage 4 chronic kidney disease, or unspecified chronic kidney disease; Z86.718 Personal history of other venous thrombosis and embolism; G24.01 Drug induced subacute dyskinesia; R45.1 Restlessness and agitation; N18.30 Chronic kidney disease, stage 3 unspecified; M47.816 Spondylosis without myelopathy or radiculopathy, lumbar region
CPT/HCPCS: 36415; 80053; 80307; 87637; 99217; 99219; 99285; J1650; NC; 70450; 72192; 80178; 80320; 81003; 82140; 82248; 83735; 84439; 84443; 85025; G0378

== ENCOUNTER 2020-07-26 03:51 | Outpatient (CLI) | payer MEDICARE, SELFPAY ==
[2020-07-26 08:26] LABS: Abs Immature Grans 0.02 10^3/uL (0.0-0.06); Absolute Basophil Count 0.02 10^3/uL (0.0-0.2); Absolute Eosinophil Count 0.28 10^3/uL (0.0-0.7); Absolute Lymphocyte Count 1.75 10^3/uL (1.2-3.4); Absolute Monocyte Count 0.41 10^3/uL (0.1-0.8); Absolute Neutrophil Count 3.24 10^3/uL (1.2-6.7); Basophils % 0.3; Eosinophils % 4.9; HCT 38.6 % (36.0-46.0); HGB 12.1 g/dL (11.2-15.7); Immature Grans % 0.3; Lymphocytes % 30.6; MCH 28.7 pg (27.0-33.0); MCHC 31.3 % (32.0-36.0); MCV 91.5 fL (80-95); MPV 8.9 fL (8.0-11.0); Monocytes % 7.2; Neutrophils % 56.7; Nucleated RBC 0 %; Platelet Count 303 10^3/uL (130-400); RBC 4.22 10^6/uL (3.93-5.22); RDW 14.6 % (11.7-14.6); RDW-SD 49.3 fL; WBC 5.72 10^3/uL (4.4-10.8)
[2020-07-26 08:46] LABS: Hemoglobin A1C 5.5 % (<5.7)
[2020-07-26 08:57] LABS: ALT 20 U/L (14-59); AST 12 U/L (15-37); Albumin 3.6 g/dL (3.4-5.0); Alkaline Phosphatase 70 U/L (46-116); Anion Gap 10.3 mmol/L (3-11); BUN 25 mg/dL (7-18); Bilirubin, Total 0.3 mg/dL (0.2-1.0); CO2 23.7 mmol/L (21.0-32.0); CREATININE 1.2 mg/dL (0.55-1.02); Calcium 9.1 mg/dL (8.5-10.1); Chloride 109 mmol/L (98-107); Estimated GFR 43.12 (mL/min/1.73m2); FREE T4 0.89 ng/dL (0.76-1.46); Glucose 100 mg/dL (74-106); Magnesium 2.3 mg/dL (1.8-2.4); Potassium 4.2 mmol/L (3.5-5.1); Sodium 143 mmol/L (136-145); TSH 1.83 uIU/mL (0.36-3.74); Total Protein 7.6 g/dL (6.4-8.2)
[2020-07-26 09:37] LABS: Calculated LDL 134 mg/dL (<100); Cholesterol 223 mg/dL (<200); Folate > 20.0 ng/mL (8.6-20.0); HDL Cholesterol 44 mg/dL (40-60); Triglyceride 227 mg/dL (<150); Vitamin B12 897 pg/mL (193-986)
[2020-07-26 09:39] LABS: Lithium 0.6 mmol/l (0.6-1.2)
[2020-07-26 16:13] LABS: T3,Free 2.8 pg/mL (2.8-5.3)
[2020-07-28 21:42] LABS: 25-Hydroxy D Total 82 ng/mL; 25-Hydroxy D2 <4.0 ng/mL; 25-Hydroxy D3 82 ng/mL
== END 2020-07-26 03:52 | disposition home or self-care (01) ==
LOC: LBO 03:51
PROVIDERS: PCP Nurse Practitioner Family; Visit Provider Psychiatry & Neurology Psychiatry
DX: F31.4 Bipolar disorder, current episode depressed, severe, without psychotic features (principal); Z79.899 Other long term (current) drug therapy; Z13.228 Encounter for screening for other metabolic disorders; Z51.81 Encounter for therapeutic drug level monitoring
CPT/HCPCS: 36415; 80053; 80061; 82306; 80178; 82607; 82746; 83036; 83735; 84439; 84443; 84481; 85025

== ENCOUNTER 2020-08-16 03:46 | Outpatient (CLI) | payer MEDICARE, SELFPAY ==
[2020-08-16 15:48] LABS: TSH (W/Ref FT4) 1.51 uIU/mL (0.36-3.74)
== END 2020-08-16 03:47 | disposition home or self-care (01) ==
PROVIDERS: PCP Nurse Practitioner Family; Visit Provider Nurse Practitioner Family
DX: E03.9 Hypothyroidism, unspecified (principal)
CPT/HCPCS: 36415; 84443

== ENCOUNTER 2020-08-30 02:39 | Outpatient (CLI) | payer MEDICARE, SELFPAY ==
--- NOTE | 2020-08-30 08:04 | DI.US_ITS ---
EXAM: US EXTREMITY VENOUS BI CLINICAL HISTORY: R/o DVT,BILAT LEG PAIN,M79.605,M79.604. TECHNIQUE: Bilateral lower extremity venous ultrasound performed using grayscale, color-flow, and sp ectral Doppler analysis. COMPARISON: No exams were available for comparison FINDINGS: The bilateral common femoral, femoral and popliteal veins demonstrate normal compressibility, augment ation, and color Doppler. The posterior tibial veins are patent. The saphenofemoral junctions are unr emarkable. There is no evidence of a Le's cyst. The soft tissues are unremarkable. IMPRESSION: Right: Negative for DVT Left: Negative for DVT DATA REPOSITORY:
== END 2020-08-30 02:59 ==
PROVIDERS: PCP Nurse Practitioner Family; Visit Provider Nurse Practitioner Family
DX: M79.604 Pain in right leg (principal); M79.605 Pain in left leg
CPT/HCPCS: 93970

== ENCOUNTER 2020-11-23 03:21 | Outpatient (CLI) | payer MEDICARE, SELFPAY ==
[2020-11-23 08:25] LABS: Abs Immature Grans 0.01 10^3/uL (0.0-0.06); Absolute Basophil Count 0.02 10^3/uL (0.0-0.2); Absolute Lymphocyte Count 1.45 10^3/uL (1.2-3.4); Absolute Monocyte Count 0.49 10^3/uL (0.1-0.8); Absolute Neutrophil Count 3.25 10^3/uL (1.2-6.7); Basophils % 0.4; Eosinophils % 3.7; HCT 36.5 % (36.0-46.0); HGB 11.4 g/dL (11.2-15.7); Hemoglobin A1C 5.8 % (<5.7); Immature Grans % 0.2; Lymphocytes % 26.8; MCH 27.6 pg (27.0-33.0); MCHC 31.2 % (32.0-36.0); MCV 88.4 fL (80-95); Neutrophils % 59.9; Nucleated RBC 0 %; Platelet Count 330 10^3/uL (130-400); RBC 4.13 10^6/uL (3.93-5.22); RDW 14.4 % (11.7-14.6); RDW-SD 46.7 fL; WBC 5.42 10^3/uL (4.4-10.8)
[2020-11-23 09:34] LABS: ALT 19 U/L (14-59); AST 11 U/L (15-37); Albumin 3.7 g/dL (3.4-5.0); Alkaline Phosphatase 69 U/L (46-116); Anion Gap 14.8 mmol/L (3-11); BUN 24 mg/dL (7-18); Bilirubin, Total 0.4 mg/dL (0.2-1.0); CO2 20.2 mmol/L (21.0-32.0); CREATININE 1.4 mg/dL (0.55-1.02); Calcium 9.3 mg/dL (8.5-10.1); Calculated LDL 157 mg/dL (<100); Chloride 110 mmol/L (98-107); Cholesterol 242 mg/dL (<200); Estimated GFR 36.09 (mL/min/1.73m2); Ferritin 35 ng/mL (8-252); Glucose 115 mg/dL (74-106); HDL Cholesterol 44 mg/dL (40-60); Magnesium 2.3 mg/dL (1.8-2.4); Potassium 4.5 mmol/L (3.5-5.1); Sodium 145 mmol/L (136-145); TSH 1.69 uIU/mL (0.36-3.74); Total Protein 7.5 g/dL (6.4-8.2); Triglyceride 209 mg/dL (<150); Vitamin B12 996 pg/mL (193-986)
[2020-11-23 09:38] LABS: Folate > 20.0 ng/mL (8.6-20.0)
[2020-11-23 15:15] LABS: FREE T4 0.79 ng/dL (0.76-1.46)
[2020-11-23 16:44] LABS: T3,Free 3.1 pg/mL (2.8-5.3)
[2020-11-25 00:50] LABS: Vitamin D 25 Total 80.1 ng/mL (30-100)
== END 2020-11-23 03:22 | disposition home or self-care (01) ==
LOC: LBO 03:21
PROVIDERS: PCP Nurse Practitioner Family; Visit Provider Psychiatry & Neurology Psychiatry
DX: F31.4 Bipolar disorder, current episode depressed, severe, without psychotic features (principal); Z79.899 Other long term (current) drug therapy
CPT/HCPCS: 36415; 80053; 80061; 82306; 82607; 82728; 82746; 83036; 83735; 84439; 84443; 84481; 85025; 86140

== ENCOUNTER 2020-12-05 21:13 | Observation (INO) | payer MEDICARE, SELFPAY ==
[2020-12-05 21:27] VITALS: BP 159/89; PULSE 108; RESP 20; TEMP 36.2; O2SAT 97
--- NOTE | 2020-12-05 21:45 | RT.EKG_ITS ---
APPROVED REPORT Exam: Resting ECG Reason for Exam: agitation Patient Location: E HR:96 bpm ECG Measurements Heart Rate 96 AXIS VT 156 P 24 QRSd 97 QRS -9 QT 394 T -3 QTc 497 Conclusion Sinus rhythm...normal P axis, V-rate 60- [address]-T changes
[2020-12-05] MEDS: LORazepam 2 MG/ML VIAL 0.5 MG IVP (22:43)
[2020-12-05 22:53] LABS: Abs Immature Grans 0.02 10^3/uL (0.0-0.06); Absolute Basophil Count 0.02 10^3/uL (0.0-0.2); Absolute Eosinophil Count 0.26 10^3/uL (0.0-0.7); Absolute Lymphocyte Count 2.22 10^3/uL (1.2-3.4); Absolute Monocyte Count 0.63 10^3/uL (0.1-0.8); Absolute Neutrophil Count 4.33 10^3/uL (1.2-6.7); Basophils % 0.3; Eosinophils % 3.5; HCT 35.6 % (36.0-46.0); HGB 11.1 g/dL (11.2-15.7); Immature Grans % 0.3; Lymphocytes % 29.7; MCH 27.7 pg (27.0-33.0); MCHC 31.2 % (32.0-36.0); MCV 88.8 fL (80-95); MPV 9.3 fL (8.0-11.0); Monocytes % 8.4; Neutrophils % 57.8; Nucleated RBC 0 %; Platelet Count 275 10^3/uL (130-400); RBC 4.01 10^6/uL (3.93-5.22); RDW 14.2 % (11.7-14.6); RDW-SD 46.1 fL; WBC 7.48 10^3/uL (4.4-10.8)
[2020-12-05 23:04] LABS: Lithium 0.5 mmol/l (0.6-1.2)
[2020-12-05 23:14] LABS: ALT 18 U/L (14-59); AST 16 U/L (15-37); Albumin 3.8 g/dL (3.4-5.0); Alkaline Phosphatase 65 U/L (46-116); Anion Gap 13.3 mmol/L (3-11); BUN 19 mg/dL (7-18); Bilirubin, Total 0.3 mg/dL (0.2-1.0); CO2 21.7 mmol/L (21.0-32.0); CREATININE 1.4 mg/dL (0.55-1.02); Calcium 9.2 mg/dL (8.5-10.1); Chloride 109 mmol/L (98-107); Estimated GFR 36.09 (mL/min/1.73m2); Glucose 109 mg/dL (74-106); Potassium 3.8 mmol/L (3.5-5.1); Sodium 144 mmol/L (136-145); TSH 1.74 uIU/mL (0.36-3.74); Total Protein 7.7 g/dL (6.4-8.2)
[2020-12-05 23:37] LABS: Bilirubin Negative (Negative); Blood Negative (Negative); Clarity Clear (Clear); Glucose Negative (Negative); Ketones Negative (Negative); Leukocyte Esterase Negative (Negative); Nitrite Negative (Negative); Specific Gravity 1.015 (1.005-1.025); Urobilinogen 0.2 EU/dL (Up TO 0.2)
--- NOTE | 2020-12-05 23:43 | ED.GENADUL_ITS ---
Discharge Plan Disposition Condition: Improving Discharge Details Chief Complaint: GenMedical Admit Date/Time: 12/06/20 00:26 Admit Provider: Heladio Robertson Attending Provider: Heladio Robertson Primary Care Provider: Patricia Goss ED Provider: Nataliia Gould Discharge Instructions Activity:: Activity as Tolerated Equipment/Supplies:: No Equipment Needed Diet:: Normal Diet Discharge Orders Discharge Orders: Discharge Order (Routine); Ordered 12/06/20 Ordered By: Krishan Ferguson Discharge Data Discharge Date/Time-TO BE ENTERED AT DEPARTURE: 12/06/20 02:00 Medical Decision Making [place] slightly subtherapeutic, the remainder of labs do not show acute pathology Urinalysis no evidence of infection Patient is alert and oriented x2 which is baseline per daughter, however she is quite tangential and does not respond appropriately for questions asked, she is repetitive in the room and daughter states that patient has episodes similar to this, specifically after ECT however this was more progressive and patient has been quite combative and agitated at home and I do not feel comfortable. Specifically patient's called daughter to pick her up to bring patient to the emergency room as he is unable to care for her at home. She is been hospitalized before for similar presentation reportedly there have been no falls or trauma so no CT was ordered EKG does not show significant abnormality Patient denies any current complaints She is alert, quite restless in the room although cooperative for basic tasks when asked Creatinine baseline per patient, 1.4, BUN 19 Glucose 109 Urinalysis for infection Case discussed with Dr. Robertson who is agreeable to admitting patient [facility] and [facility] counselor evaluated patient and patient will be reassessed in the morning after discussion with psychiatrist, plan for possible placement Patient given 0.5 of Ativan for anxiety and restless Medical Records Medical records reviewed: Yes I reviewed the patient's medical records. Lab Data Lab results reviewed: Yes I reviewed the patient's lab results. ECG Data Prior ECG tracings: available for review HPI General Mode of arrival: ambulatory . Date/Time Provider Initiated Documentation: 12/05/20 21:36 . Limitations to Documentation: altered mental status . Information obtained by: family . HPI Narrative: This 80-year-old female presents with past medical history of bipolar disease, dementia, tardive dyskinesia, hypothyroidism, hypertension, hyperlipidemia, DVT who presents for report of increasing agitation and refusing to take medications. Patient has been combative with and daughter. She lives with her he has been attempting to give her medication but patient has been increasingly more anxious prompting the visit today. Daughter states patient scratched her numerous times has been quite combative. Patient's does not feel comfo rtable taking care of this patient reportedly. Patient is status post ECT on . Daughter states she has suddenly worsened since having ECT. She has managed by a psychiatrist she recommended increasing her Seroquel during the day, daughter has been doing this for the past 3 days without relief of symptoms. They deny any falls or injuries. She is presented similarly to this in the past. It sounds like she has not been hospitalized for the past several months although daughter is concerned that she is trending toward possible placement. They do not feel comfortable taking patient home. They feels that she is progressively more confused although she has presented similarly. He denies new or urinary symptoms, fever, falls, injuries, vomiting, diarrhea Re lated Data Home Medications Medication Instructions Recorded Confirmed cholecalciferol (vitamin D3) 2,000 unit PO DAILY 09/18/12 12/07/20 [Vitamin D3] multivitamin 1 ea PO DAILY 09/18/12 12/07/20 aspirin [Aspirin Low-Strength] 81 mg PO DAILY tab.chew 12/11/14 12/07/20 miconazole nitrate 2 % topical 1 applic TP DAILY 11/27/19 12/07/20 powder lithium carbonate 300 mg tablet 300 mg PO QHS 12/31/19 12/07/20 lorazepam 1 mg tablet 1 mg PO BID PRN 01/12/20 12/07/20 amlodipine 5 mg tablet 5 mg PO DAILY #30 tab 02/05/20 12/07/20 carvedilol 12.5 mg tablet 12.5 mg PO BID #60 tab 02/05/20 12/07/20 folic acid 1 mg tablet 1 mg PO DAILY #30 tab 02/05/20 12/07/20 levothyroxine 50 mcg tablet 50 mcg PO DAILY #30 tab 02/05/20 12/07/20 pantoprazole 40 mg tablet,delayed 40 mg PO DAILY #30 tab 02/05/20 12/07/20 release acetaminophen 500 mg tablet 1,000 mg PO TID PRN #270 tab 02/20/20 12/07/20 quetiapine [Seroquel] 200 mg PO QHS #0 tab 07/14/20 12/07/20 quetiapine 50 mg PO QAM 12/06/20 12/07/20 Previous Rx's Medication Instructions Recorded amlodipine 5 mg tablet 5 mg PO DAILY #30 tab 02/05/20 carvedilol 12.5 mg tablet 12.5 mg PO BID #60 tab 02/05/20 folic acid 1 mg tablet 1 mg PO DAILY #30 tab 02/05/20 levothyroxine 50 mcg tablet 50 mcg PO DAILY #30 tab 02/05/20 pantoprazole 40 mg tablet,delayed 40 mg PO DAILY #30 tab 02/05/20 release acetaminophen 500 mg tablet 1,000 mg PO TID PRN #270 tab 02/20/20 quetiapine [Seroquel] 200 mg PO QHS #0 tab 07/14/20 Allergies Allergy/AdvReac Type Severity Reaction Status Date / Time fluoxetine Allergy Mild Verified 12/07/20 12:19 olanzapine Allergy Mild Verified 12/07/20 12:19 trazodone Allergy Mild Verified 12/07/20 12:19 haloperidol AdvReac Severe Contraindic Verified 12/07/20 12:19 ated Phenothiazines AdvReac Severe DYSTONIA Verified 12/07/20 12:19 General Stated Complaint: GenMedical GRANT: 3 Review of Systems All systems reviewed & are unremarkable except as noted in HPI and below PFSH Medical History Bipolar 2 disorder (01/30/17) Per Dr. 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 Esther Heath Dose reductions in the past have led to severe relapse of psychotic depr ession Surgical History S/P ORIF (open reduction internal fixation) fracture Family History Brother Heart disease Stroke Brother Heart disease Other Hypertension Social History Smoking/Tobacco Use Status: Never Smoking risk assessment performed?: Yes Alcohol Intake: former Drug use: Never Substance use type: does not use Number of Children: 2 Pets and animals: Yes Pets and animals: cat(s) Current gender identity: female What type of physical activity do you participate in: walking Frequency: daily Seatbelt use: always Do you feel safe at home: Yes Do you feel safe in your relationship?: Yes Exam Const General: frail appearing HENMT Head: normal to inspection Teeth and gingiva: dentition normal Eyes Pupils: PERRL Resp Effort & Inspection: normal respiratory effort Cardio Rate: regular rate GI Other: Nontender abdominal exam, scratches noted Skin Other: Scratches noted to bilateral lower extremities Neuro General: patient alert and patient oriented x3 Cranial Nerves: PERRL Gait: gait assisted Other: Able to follow basic commands although tangential and repetitive Extrem Other: See above Psych Appearance: disheveled Speech and Movement: agitated, not catatonic and restless Affect: labile affect Attitude: cooperative Thought Content: suicidality Judgment: poor Course Vital Signs Vital signs: Vital Signs Temperature 36.2 C L 12/05/20 21:27 Pulse 108 H 12/05/20 21:27 Respiratory Rate 20 12/05/20 21:27 Blood Pressure 159/89 H 12/05/20 21:27 Pulse Oximetry 97 12/05/20 21:27 Temperature 36.2 C L 12/05/20 21:27 Temperature Source Skin 12/05/20 21:27 Pulse 108 H 12/05/20 21:27 Respiratory Rate 20 12/05/20 21:27 Blood Pressure 159/89 H 12/05/20 21:27 Pulse Oximetry 97 12/05/20 21:27 Pain Level 5 12/05/20 21:27 Lab/Test Results Lab/Test Results: Laboratory Tests Range/Units 12/05/20 12/05/20 12/05/20 22:45 22:45 22:45 WBC (4.4-10.8) 10^3/uL 7.48 RBC (3.93-5.22) 10^6/uL 4.01 Hgb (11.2-15.7) g/dL 11.1 L Hct (36.0-46.0) % 35.6 L MCV (80-95) fL 88.8 MCH (27.0-33.0) pg 27.7 MCHC (32.0-36.0) % 31.2 L RDW (11.7-14.6) % 14.2 Plt Count (130-400) 10^3/uL 275 MPV (8.0-11.0) fL 9.3 Immature Gran % 0.3 Neutrophils % 57.8 Lymphocytes % 29.7 Monocytes % 8.4 Eosinophils % 3.5 Basophils % 0.3 Nucleated RBC % % 0 Absolute Neutrophils (1.2-6.7) 10^3/uL 4.33 Absolute Lymphocytes (1.2-3.4) 10^3/uL 2.22 Absolute Monocytes (0.1-0.8) 10^3/uL 0.63 Absolute Eosinophils (0.0-0.7) 10^3/uL 0.26 Absolute Basophils (0.0-0.2) 10^3/uL 0.02 Sodium (136-145) mmol/L 144 Potassium (3.5-5.1) mmol/L 3.8 Chloride (98-107) mmol/L 109 H Carbon Dioxide (21.0-32.0) mmol/L 21.7 Anion Gap (3-11) mmol/L 13.3 H BUN (7-18) mg/dL 19 H Creatinine (0.55-1.02) mg/dL 1.4 H Estimated GFR/1.73 m2 (mL/min/1.73m2) 36.09 Glucose (74-106) mg/dL 109 H Calcium (8.5-10.1) mg/dL 9.2 Total Bilirubin (0.2-1.0) mg/dL 0.3 AST (15-37) U/L 16 ALT (14-59) U/L 18 Alkaline Phosphatase (46-116) U/L 65 Total Protein (6.4-8.2) g/dL 7.7 Albumin (3.4-5.0) g/dL 3.8 TSH (0.36-3.74) uIU/mL 1.74 Urine Color (Yellow) Urine Clarity (Clear) Urine pH (5-8) Ur Specific [place] (1.005-1.025) Urine Protein (Negative) mg/dL Urine Ketones (Negative) mg/dL Urine Blood (Negative) Urine Nitrite (Negative) Urine Bilirubin (Negative) Urine Urobilinogen (Up TO 0.2) EU/dL Ur Leukocyte Esterase (Negative) Urine Glucose (Negative) mg/dL [place] (0.6-1.2) mmol/l 0.5 L Range/Units 12/05/20 23:30 WBC (4.4-10.8) 10^3/uL RBC (3.93-5.22) 10^6/uL Hgb (11.2-15.7) g/dL Hct (36.0-46.0) % MCV (80-95) fL MCH (27.0-33.0) pg MCHC (32.0-36.0) % RDW (11.7-14.6) % Plt Count (130-400) 10^3/uL MPV (8.0-11.0) fL Immature Gran % Neutrophils % Lymphocytes % Monocytes % Eosinophils % Basophils % Nucleated RBC % % Absolute Neutrophils (1.2-6.7) 10^3/uL Absolute Lymphocytes (1.2-3.4) 10^3/uL Absolute Monocytes (0.1-0.8) 10^3/uL Absolute Eosinophils (0.0-0.7) 10^3/uL Absolute Basophils (0.0-0.2) 10^3/uL Sodium (136-145) mmol/L Potassium (3.5-5.1) mmol/L Chloride (98-107) mmol/L Carbon Dioxide (21.0-32.0) mmol/L Anion Gap (3-11) mmol/L BUN (7-18) mg/dL Creatinine (0.55-1.02) mg/dL Estimated GFR/1.73 m2 (mL/min/1.73m2) Glucose (74-106) mg/dL Calcium (8.5-10.1) mg/dL Total Bilirubin (0.2-1.0) mg/dL AST (15-37) U/L ALT (14-59) U/L Alkaline Phosphatase (46-116) U/L Total Protein (6.4-8.2) g/dL Albumin (3.4-5.0) g/dL TSH (0.36-3.74) uIU/mL Urine Color (Yellow) Yellow Urine Clarity (Clear) Clear Urine pH (5-8) 7.0 Ur Specific [place] (1.005-1.025) 1.015 Urine Protein (Negative) mg/dL Negative Urine Ketones (Negative) mg/dL Negative Urine Blood (Negative) Negative Urine Nitrite (Negative) Negative Urine Bilirubin (Negative) Negative Urine Urobilinogen (Up TO 0.2) EU/dL 0.2 Ur Leukocyte Esterase (Negative) Negative Urine Glucose (Negative) mg/dL Negative [place] (0.6-1.2) mmol/l
[2020-12-05 23:48] LABS: Source Nasal/Nares
--- NOTE | 2020-12-06 00:01 | PDOC.MHCN_ITS ---
Date of service: 12/06/20 Time of Service: 00:01 Mental Health Crisis Note Presenting Issue How did you arrive at the ED and why did you come: Client arrived at [facility] ED with her daughter, daughter states that client has been getting ECT 2x monthly at [facility]. This past Sunday she got her ECT and when she arrived home she was worried about her medication. On Sunday client took 2 doses of her medication. Precipitating Factors Did not assess due to state of client. Disposition BEHAVIOR: Client is laying down i hospital bed and is disoriented. Client was unable to answer majority of the questions, but daughter was present in the room who is legal guardian and was able to process with this radio script writer what client was saying. EYE CONTACT: Client makes minimal eye contact. MOOD: Clients mood appears to be highly agitated and disoriented. AFFECT: Elevated APPETITE: Clients daughter states that client has not been eating well the past couple of days, stating that client has been grazing on a couple of meals. SLEEP(trouble falling/staying asleep: Client on a typical day would go to bed around 6:00 p.m. however the past couple of nights has not been going to bed until very late. Plan Client is being admitted in the ICU due to not being able to go home in agitated state. Physicians medical assistant cardiology Nataliia Vincent states that alternative placement will be discussed for client tomorrow. This radio script writer will notify clients [facility] doctor about interaction with client. Signature Clinician's Name/Title: Citlaly Martell [facility] Emergency Clinician
--- NOTE | 2020-12-06 00:08 | HPE_ITS ---
Date of service: 12/06/20 Time of Service: 00:09 Assessment and Plan Assessment and plan (1) Agitation: Status: Acute Assessment and plan: By timing this is likely due to recent change in med regimen, though may also be part of natural course and variability of disease. For now would continue baseline regimen with additional prn Ativan. Will need some further adjustment, perhaps including increased dose [place] as this is slightly subtherapeutic. Per prior records patient is Full Code History of Present Illness History of Present Illness Chief Complaint: agitation Narrative: 80 female with h/o dementia, psychotic depression, bipolar, gets q2week ECT in addition to medication regimen. According to family patient's regimen was adjusted some 3-4 days [employer] by reducing Ativan by 50% and adding daytime dose of Seroquel to baseline HS dose. It is not clear to family (daughter) why the Ativan dose was reduced. In any case patient here with increasing agitation, combativeness over past few days and they are not able to care for her. In ER medical w/u unrevealing save perhaps for [place] level of 0.5 (0.6-1.2). Patient given Ativan 0.5 IV, daughter states has not helped much. Patient is admitted for further management. Patient unable to provide further history. Review of Systems Unobtainable due to mental status PFSH Medical History Bipolar 2 disorder (01/30/17) Per Dr. 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 Surgical History S/P ORIF (open reduction internal fixation) fracture Family History Brother Heart disease Stroke Brother Heart disease Other Hypertension Social History Smoking/Tobacco Use Status: Never Smoking risk assessment performed?: Yes Alcohol Intake: former Drug use: Never Substance use type: does not use Number of Children: 2 Pets and animals: Yes Pets and animals: cat(s) Current gender identity: female What type of physical activity do you participate in: walking Frequency: daily Seatbelt use: always Do you feel safe at home: Yes Do you feel safe in your relationship?: Yes Meds Allergies and Home Medications Allergies Allergy/AdvReac Type Severity Reaction Status Date / Time fluoxetine Allergy Mild Verified 12/05/20 21:31 olanzapine Allergy Mild Verified 12/05/20 21:31 trazodone Allergy Mild Verified 12/05/20 21:31 haloperidol AdvReac Severe Contraindic Verified 12/05/20 21:31 ated Phenothiazines AdvReac Severe DYSTONIA Verified 12/05/20 21:31 Home Medications Medication Instructions Recorded Confirmed Type cholecalciferol (vitamin D3) 2,000 unit PO DAILY 09/18/12 12/05/20 History [Vitamin D3] multivitamin 1 ea PO DAILY 09/18/12 12/05/20 History aspirin [Aspirin Low-Strength] 81 mg PO DAILY tab.chew 12/11/14 12/05/20 History miconazole nitrate 2 % topical 1 applic TP DAILY 11/27/19 12/05/20 History powder sennosides 8.6 mg tablet 8.6 mg PO QHS PRN 11/27/19 12/05/20 History lithium carbonate 300 mg tablet 300 mg PO QHS 12/31/19 12/05/20 History lorazepam 1 mg tablet 1 mg PO BID PRN 01/12/20 12/05/20 History amlodipine 5 mg tablet 5 mg PO DAILY #30 tab 02/05/20 12/05/20 Rx carvedilol 12.5 mg tablet 12.5 mg PO BID #60 tab 02/05/20 12/05/20 Rx folic acid 1 mg tablet 1 mg PO DAILY #30 tab 02/05/20 12/05/20 Rx levothyroxine 50 mcg tablet 50 mcg PO DAILY #30 tab 02/05/20 12/05/20 Rx pantoprazole 40 mg tablet,delayed 40 mg PO DAILY #30 tab 02/05/20 12/05/20 Rx release acetaminophen 500 mg tablet 1,000 mg PO TID PRN #270 tab 02/20/20 12/05/20 Rx quetiapine [Seroquel] 200 mg PO QHS #0 tab 07/14/20 12/05/20 Rx Exam Narrative Exam Narrative: 159/89, 108, 36.2, 20, 97% RA. HEENT atraumatic; neck supple; lungs clear; heart RRR; abdomen soft and NT; extremities w/o edema; neuro restless, limited responsiveness to questions, moves all 4s Results Labs Result diagrams: 12/05/20 22:45 12/05/20 22:45 Labs: Laboratory Results - last 24 hr 12/05/20 12/05/20 12/05/20 22:45 22:45 22:45 WBC 7.48 RBC 4.01 Hgb 11.1 L Hct 35.6 L MCV 88.8 MCH 27.7 MCHC 31.2 L RDW 14.2 Plt Count 275 MPV 9.3 Immature Gran % 0.3 Neutrophils % 57.8 Lymphocytes % 29.7 Monocytes % 8.4 Eosinophils % 3.5 Basophils % 0.3 Nucleated RBC % 0 Absolute Neutrophils 4.33 Absolute Lymphocytes 2.22 Absolute Monocytes 0.63 Absolute Eosinophils 0.26 Absolute Basophils 0.02 Sodium 144 Potassium 3.8 Chloride 109 H Carbon Dioxide 21.7 Anion Gap 13.3 H BUN 19 H Creatinine 1.4 H Estimated GFR/1.73 m2 36.09 Glucose 109 H Calcium 9.2 Total Bilirubin 0.3 AST 16 ALT 18 Alkaline Phosphatase 65 Total Protein 7.7 Albumin 3.8 TSH 1.74 Urine Color Urine Clarity Urine pH Ur Specific [place] Urine Protein Urine Ketones Urine Blood Urine Nitrite Urine Bilirubin Urine Urobilinogen Ur Leukocyte Esterase Urine Glucose [place] 0.5 L COVID-19 Source 12/05/20 12/05/20 23:30 23:40 WBC RBC Hgb Hct MCV MCH MCHC RDW Plt Count MPV Immature Gran % Neutrophils % Lymphocytes % Monocytes % Eosinophils % Basophils % Nucleated RBC % Absolute Neutrophils Absolute Lymphocytes Absolute Monocytes Absolute Eosinophils Absolute Basophils Sodium Potassium Chloride Carbon Dioxide Anion Gap BUN Creatinine Estimated GFR/1.73 m2 Glucose Calcium Total Bilirubin AST ALT Alkaline Phosphatase Total Protein Albumin TSH Urine Color Yellow Urine Clarity Clear Urine pH 7.0 Ur Specific [place] 1.015 Urine Protein Negative Urine Ketones Negative Urine Blood Negative Urine Nitrite Negative Urine Bilirubin Negative Urine Urobilinogen 0.2 Ur Leukocyte Esterase Negative Urine Glucose Negative [place] COVID-19 Source Nasal/Nares Last Vital Signs Temp 36.2 C L 12/05/20 21:27 Pulse 108 H 12/05/20 21:27 Resp 20 12/05/20 21:27 BP 159/89 H 12/05/20 21:27 Pulse Ox 97 12/05/20 21:27
[2020-12-06 00:38] LABS: COVID-19 PCR Negative (Negative)
[2020-12-06] MEDS: Acetaminophen 325 MG TAB 650 MG PO (01:10)
[2020-12-06] MEDS: LORazepam 2 MG/ML VIAL 0.5 MG IVP (01:11)
[2020-12-06 02:10] VITALS: BP 150/98; PULSE 90; RESP 22; TEMP 35.7; O2SAT 95
[2020-12-06 02:26] LABS: *AMPHETAMINES SCREEN URINE Negative (Negative); *BARBITURATES SCREEN URINE Negative (Negative); *BENZODIAZEPINES SCREEN URINE Negative (Negative); Cannabinoids THC Negative (Negative); Cocaine Screen,Urine Negative (Negative); METHADONE URINE SCREEN Negative (Negative); OPIATES URINE SCREEN Negative (Negative)
[2020-12-06 02:27] LABS: Tricyclic Antidepressants Negative (Negative)
[2020-12-06] MEDS: Levothyroxine 50 MCG TAB PO (06:27)
[2020-12-06 08:03] VITALS: BP 128/66; PULSE 75; O2SAT 96
[2020-12-06] MEDS: Aspirin 81 MG CHEW PO (08:09)
[2020-12-06] MEDS: LORazepam 1 MG TAB PO (08:09)
[2020-12-06] MEDS: amLODIPine 5 MG TAB PO (08:09)
[2020-12-06] MEDS: Pantoprazole 40 MG TABCR PO (08:09)
[2020-12-06] MEDS: Carvedilol 12.5 MG TAB PO ×2 (08:10→17:11)
[2020-12-06 08:21] VITALS: O2SAT 96
--- NOTE | 2020-12-06 09:20 | PDOC.CMIN ---
- If Service Date Differs Date of service: 12/06/20 Time of Service: 09:20 Care Management Initial Assess REASON FOR HOSPITALIZATION:: Agitation PAST MEDICAL HISTORY/PAST SURGICAL HISTORY:: Bipolar 2 disorder (01/30/17). Per Dr. Heath, with severe treatment resistant dpressive phases vs treatment resistant depression 01/25/17 [facility]. CKD (chronic kidney disease). Deep vein thrombosis (12/08/13). GERD (gastroesophageal reflux disease). HLD (hyperlipidemia). HTN (hypertension). Hypothyroidism (11/11/12). Tardive dyskinesia (04/17/16). Dr. Esther Heath. 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 S/P ORIF (open reduction internal fixation) fracture PREVIOUS FUNCTIONAL STATUS/SOCIAL/FAMILY SUPPORTS:: Stacy resides in [facility] with her , Lalito. Her daughter Lluvia lives close by and is her legal guardian, and supportive in her care needs. Lluvia is diagnosed with bipolar disorder 2, as well as dementia, her family manages her primary care needs. CURRENT FUNCTIONAL STATUS:: Stacy was lying in bed when CM met with her. She had just woken up from a nap. CM met with Lluvia to review discharge plan, she reviewed her current concerns re: Stacy's symptoms to include agitation, confusion and medication management-missed doses. CM encouraged Lluvia to engage in caregiver supports and self care as she reported feeling overwhelmed with the current needs of her family in the setting of being unemployed. ADVANCE DIRECTIVES:: On file, daughter Lluvia as guardian, Lalito as agent. Has patient been provided with info about the portal/API?: No Did the patient sign up for the portal?: No CODE STATUS:: Full Code INSURANCE COVERAGE / FINANCIAL ISSUES:: Medicare. AARP CURRENT HOME/COMMUNITY SERVICES/EQUIPMENT:: Medication management; previous Dr. Heath PRIMARY CARE PHYSICIAN:: Patricia Goss POTENTIAL DISCHARGE NEEDS:: Evaluations for increased needs; possible placement. PATIENT/FAMILY EDUCATION NEEDS:: Review discharge instructions, discuss Ask Me Three. ANTICIPATED BARRIERS TO DISCHARGE:: Patient presentation, agitated dementia. TRANSPORTATION:: TBD by disposition. PLAN:: Stacy continues to be closely monitored and treated, if she stabilizes behaviorally on medications she will likely return home. CM to discuss possible transfer to [facility] for further observation and medication management; Lluvia was uninterested in [facility] at this time. [facility] has met with Stacy and feels she is stable to return home, which at this time is in line with her wishes.
[2020-12-06] MEDS: QUEtiapine 50 MG TAB PO (10:38)
[2020-12-06] MEDS: Acetaminophen 500 MG TAB 1000 MG PO (11:11)
--- NOTE | 2020-12-06 11:31 | NUR.NOTE ---
Nursing Note: At 1055 on 12/06/20, this RN received report on the pt. from the [facility]. At 1100 on 12/06/20, pt. was transferred from ICU to Med/Surg at this time per MD order. Pt. was settled in and oriented to room 212. VS were obtained; VSS. Pt. complaining of mild-moderate right leg pain. Pt. to be medicated at the next available time per the MAR. Head to toe assessment performed; see worklist for more information. RN will reassess as necessary.
--- NOTE | 2020-12-06 12:44 | W.INMHPGNOTE ---
Date of service: 12/06/20 Time of Service: 12:45 Mental Health Crisis Note Presenting Issue How did you arrive at the ED and why did you come: Pt arrived on 12.05.2020 via her daughter for catatonia and confusion with perseveration regarding her medications. Precipitating Factors Pt denied SI and HI. She is not showing signs of delusions rather is fully oriented. Disposition BEHAVIOR: Pt is cooperative and engaged. She is clear about why she came and what she would like to happen today. EYE CONTACT: Eye contact is fair. MOOD: Pt's mood appeared calm and slightly anxious about why this clinician and [facility] Arlette Dickerson were present or about possibly having to go somewhere other than home. AFFECT: Pt's affect was slightly anxious. APPETITE: Pt is eating lunch when [facility] arrived. She reported that she has little appetite. SLEEP(trouble falling/staying asleep: Pt reported that she is tired and stated she does not think she slept well but was reported to have slept per staff observations. Plan Pt is cleared for release home when she is medically safe to do so. Pt does not want further treatment at this time and does not meet criteria for in patient treatment. Daughter was made aware and is planning to visit this afternoon and discuss option with her medical team at [facility]. Signature Clinician's Name/Title: Valerie Villarreal MS, [facility] Emergency Services Clinician
--- NOTE | 2020-12-06 16:10 | W.PM.DS.N ---
Date of service: 12/06/20 Time of Service: 16:11 DS: Diagnosis Discharge Diagnosis (1) Agitation: Status: Acute Asessment and Plan: Patient presented to the ER last night 12/05 w/ increased agitation and combativeness to the point her family was unable to care for her. She has long hx of depression w/ pschosis and BPD for which she has been receiving ECT treatments every 2 wks along w/ medications (lithium, seroquel and ativan). Her Seroquel was recently increased from 200 mg nightly to 50 mg in the a.m. and 200 mg at night but her lorazepam was reduced to 0.5 mg bid prn. Since then she has had increased agitation necessitating her being brougth to the ER. She was resumed on her increased dose of Seroquel and her lorazepam dose was resumed at 1 mg bid. Mental health from [facility] did a consultation and did not find her to be agitated but rather she was cooperative and clear about why she was brought to the hospital. [facility] felt that she was appropriate for discharge home to her family. The patient desires to return home and her meds have been resumed at their prior doses. workup included routine labs including CBC, CMP, TSH, lithium level (0.5) all which were unremarkable. (2) Bipolar 2 disorder: Status: Chronic Asessment and Plan: cont. current home meds. follow up w/ PCP and psychiatry/psychology (3) Major depressive disorder: Status: Chronic Asessment and Plan: as above Discharge Plan Disposition Patient Disposition: HOME Condition: Improving Discharge Details Reason For Visit: Agitation Admit Date/Time: 12/06/20 00:26 Admit Provider: Heladio Robertson Attending Provider: Heladio Robertson [facility] Hospital Course: see H&P, ER notes and mental health consultation for details. See my notes under her problem lists regarding presentation and treatment. Home Meds and New Rx's Prescriptions: Continued multivitamin 1 EACH tablet 1 ea PO DAILY RF: 0 cholecalciferol (vitamin D3) [Vitamin D3] 2,000 UNIT tablet 2,000 unit PO DAILY RF: 0 aspirin [Aspirin Low-Strength] 81 MG tablet,chewable 81 mg PO DAILY RF: 0 Desenex 2 % powder 1 applic TP DAILY RF: 0 sennosides [Senna Laxative] 8.6 mg tablet 8.6 mg PO QHS PRNRF: 0 lithium carbonate 300 mg tablet 300 mg PO QHS RF: 0 lorazepam 1 mg tablet 1 mg PO BID PRNRF: 0 amlodipine 5 mg tablet 5 mg PO DAILY Qty: 30 RF: 11 carvedilol 12.5 mg tablet 12.5 mg PO BID Qty: 60 RF: 11 folic acid 1 mg tablet 1 mg PO DAILY Qty: 30 RF: 11 levothyroxine 50 mcg tablet 50 mcg PO DAILY Qty: 30 RF: 11 pantoprazole 40 mg tablet,delayed release (DR/EC) 40 mg PO DAILY Qty: 30 RF: 11 acetaminophen [Tylenol Extra Strength] 500 mg tablet 1,000 mg PO TID PRN (Reason: pain) Qty: 270 RF: 3 quetiapine [Seroquel] 50 mg tablet 200 mg PO QHS Qty: 0 RF: 0 quetiapine 50 mg tablet 50 mg PO QAM RF: 0 Discharge Instructions Instructions: Anxiety (DC), Depression in Older Adults (ED) Referrals: Patricia Goss NP [Primary Care Provider] - 12/16/20 3:00 pm Activity:: Activity as Tolerated Equipment/Supplies:: No Equipment Needed Diet:: Normal Diet Discharge Orders Discharge Orders: Discharge Order (Routine); Ordered 12/06/20 Ordered By: Krishan Ferguson DS: Summary Time Spent with Patient providing and/or coordinating discharge services: Less than 30 minutes Status at Discharge Functional status at discharge: independent ambulation Overall status at discharge: patient is back to baseline Mental Status: other (patient is clear and coherent. she is back to a baseline cognition) Speech and Movement: speech and movement normal Mood: congruent mood and other (patient is clear and coherent. she is back to a baseline cognition) Affect: normal affect Exam Narrative Exam Narrative: Patient is alert and oriented to person/place and circumstances; she is calm demeanor, she is sitting up watching TV and is requesting to return home. She has no tremors nor involuntary EPS movements such as akesthesia, or dyskinesia. She is holding the newspaper while listening to the TV. Voice is quiet but coherent, she responds to my questions appropriately. Psych Mental Status: other (patient is clear and coherent. she is back to a baseline cognition) Speech and Movement: speech and movement normal Mood: congruent mood and other (patient is clear and coherent. she is back to a baseline cognition) Affect: normal affect DS: Data Vitals/I&O Vitals and I&O: Vital Signs Temperature 35.7 C L 12/06/20 02:10 Temperature Source Temporal Artery Scan 12/06/20 02:10 Pulse 75 12/06/20 08:03 Pulse Rhythm Regular 12/06/20 11:05 Respiratory Rate 22 12/06/20 02:10 Respiratory Effort Non-Labored 12/06/20 11:05 Respiratory Depth Normal 12/06/20 11:05 Respiratory Pattern Normal 12/06/20 11:05 Blood Pressure 128/66 12/06/20 08:03 Blood Pressure Mean 75 12/06/20 08:03 Pulse Oximetry 96 12/06/20 08:21 Oxygen Delivery Method Room Air 12/06/20 08:21 Oxygen Flow Rate 0 12/06/20 08:21 Pain Level 0 12/06/20 15:08 Comment 12/06/20 15:08 Intake & Output 12/05/20 12/06/20 12/06/20 23:59 11:59 23:59 Intake Total 520 / 520 Output Total 150 / 150 400 / 400 Balance -150 / -150 120 / 120 Weight 65.408 kg 62.5 kg Intake: IV Oral 510 / 510 Output: Urine 150 / 150 400 / 400 Other: Urine Color Pale Straw Yellow Urine Appearance Clear Clear Urine Odor Normal Normal Comment unable to obtain information due to mental status Incontinent x1 of a moderate amount of urine in the briefs. Briefs were changed. Voiding Methods Bedside Commode Diaper Incontinent Data Completed and Pending Labs on day of discharge: Labs from last 24 hours 12/06/20 12/05/20 12/05/20 01:41 23:40 23:30 WBC RBC Hgb Hct MCV MCH MCHC RDW Plt Count MPV Immature Gran % Neutrophils % Lymphocytes % Monocytes % Eosinophils % Basophils % Nucleated RBC % Absolute Neutrophils Absolute Lymphocytes Absolute Monocytes Absolute Eosinophils Absolute Basophils Sodium Potassium Chloride Carbon Dioxide Anion Gap BUN Creatinine Estimated GFR/1.73 m2 Glucose Calcium Total Bilirubin AST ALT Alkaline Phosphatase Total Protein Albumin TSH Urine Color Urine Clarity Urine pH Ur Specific [place] Urine Protein Urine Ketones Urine Blood Urine Nitrite Urine Bilirubin Urine Urobilinogen Ur Leukocyte Esterase Urine Glucose Urine Opiates Screen Cancelled Negative Urine Methadone Screen Cancelled Negative Ur Barbiturates Screen Cancelled Negative Ur Tricyclics Screen Cancelled Negative Ur Amphetamines Screen Cancelled Negative U Benzodiazepines Scrn Cancelled Negative [place] Urine Cocaine Screen Cancelled Negative Ur THC Screen Cancelled Negative COVID-19 Source Nasal/Nares SARS-CoV-2 (PCR) Negative 12/05/20 12/05/20 12/05/20 23:30 22:45 22:45 WBC 7.48 RBC 4.01 Hgb 11.1 L Hct 35.6 L MCV 88.8 MCH 27.7 MCHC 31.2 L RDW 14.2 Plt Count 275 MPV 9.3 Immature Gran % 0.3 Neutrophils % 57.8 Lymphocytes % 29.7 Monocytes % 8.4 Eosinophils % 3.5 Basophils % 0.3 Nucleated RBC % 0 Absolute Neutrophils 4.33 Absolute Lymphocytes 2.22 Absolute Monocytes 0.63 Absolute Eosinophils 0.26 Absolute Basophils 0.02 Sodium Potassium Chloride Carbon Dioxide Anion Gap BUN Creatinine Estimated GFR/1.73 m2 Glucose Calcium Total Bilirubin AST ALT Alkaline Phosphatase Total Protein Albumin TSH Urine Color Yellow Urine Clarity Clear Urine pH 7.0 Ur Specific [place] 1.015 Urine Protein Negative Urine Ketones Negative Urine Blood Negative Urine Nitrite Negative Urine Bilirubin Negative Urine Urobilinogen 0.2 Ur Leukocyte Esterase Negative Urine Glucose Negative Urine Opiates Screen Urine Methadone Screen Ur Barbiturates Screen Ur Tricyclics Screen Ur Amphetamines Screen U Benzodiazepines Scrn [place] 0.5 L Urine Cocaine Screen Ur THC Screen COVID-19 Source SARS-CoV-2 (PCR) 12/05/20 22:45 WBC RBC Hgb Hct MCV MCH MCHC RDW Plt Count MPV Immature Gran % Neutrophils % Lymphocytes % Monocytes % Eosinophils % Basophils % Nucleated RBC % Absolute Neutrophils Absolute Lymphocytes Absolute Monocytes Absolute Eosinophils Absolute Basophils Sodium 144 Potassium 3.8 Chloride 109 H Carbon Dioxide 21.7 Anion Gap 13.3 H BUN 19 H Creatinine 1.4 H Estimated GFR/1.73 m2 36.09 Glucose 109 H Calcium 9.2 Total Bilirubin 0.3 AST 16 ALT 18 Alkaline Phosphatase 65 Total Protein 7.7 Albumin 3.8 TSH 1.74 Urine Color Urine Clarity Urine pH Ur Specific [place] Urine Protein Urine Ketones Urine Blood Urine Nitrite Urine Bilirubin Urine Urobilinogen Ur Leukocyte Esterase Urine Glucose Urine Opiates Screen Urine Methadone Screen Ur Barbiturates Screen Ur Tricyclics Screen Ur Amphetamines Screen U Benzodiazepines Scrn [facility] Urine Cocaine Screen Ur THC Screen COVID-19 Source SARS-CoV-2 (PCR) [facility] Medical History Bipolar 2 disorder (01/30/17) Per Dr. 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
[2020-12-06 17:10] VITALS: BP 119/74; PULSE 74
== END 2020-12-06 17:45 | disposition home or self-care (01) ==
LOC: ER 12-06 01:01 → ICU 12-06 02:37 → MS 12-06 11:57
PROVIDERS: Admitting Provider General Practice; Emergency Provider Physician Assistant; PCP Nurse Practitioner Family; Visit Provider General Practice
DX: R45.1 Restlessness and agitation (principal); F31.81 Bipolar II disorder; I12.9 Hypertensive chronic kidney disease with stage 1 through stage 4 chronic kidney disease, or unspecified chronic kidney disease; N18.9 Chronic kidney disease, unspecified; E03.9 Hypothyroidism, unspecified; Z20.822 Contact with and (suspected) exposure to COVID-19; K21.9 Gastro-esophageal reflux disease without esophagitis; E78.5 Hyperlipidemia, unspecified; Z86.718 Personal history of other venous thrombosis and embolism; G24.01 Drug induced subacute dyskinesia; F03.90 Unspecified dementia, unspecified severity, without behavioral disturbance, psychotic disturbance, mood disturbance, and anxiety
CPT/HCPCS: 36415; 51701; 80053; 80307; 87635; 93005; 96374; 96376; 99285; 80178; 81003; 84443; 85025; 93010; 99219; 99222; 99238; G0378; J2060

== ENCOUNTER 2020-12-07 11:12 | Inpatient (IN) | payer MEDICARE, SELFPAY ==
[2020-12-07 11:14] VITALS: BP 142/100; PULSE 106; RESP 18; TEMP 36.4; O2SAT 97
--- NOTE | 2020-12-07 12:48 | ED.GENADUL_ITS ---
Discharge Plan Discharge Details Chief Complaint: AMS/LOC Admit Date/Time: 12/07/20 12:52 Admit Provider: Krishan Ferguson Attending Provider: Krishan Ferguson Primary Care Provider: Patricia Goss ED Provider: Marlo Vang Discharge Data Discharge Date/Time-TO BE ENTERED AT DEPARTURE: 12/07/20 13:35 Medical Decision Making 80-year-old female with multiple local problems including history of bipolar, just discharged in the hospital returns with family who is unable to care for her secondary to altered mental status and intermittently aggressive behavior. I spoke to Dr. Salomon who will admit the patient. HPI General Mode of arrival: ambulatory . Date/Time Provider Initiated Documentation: 12/07/20 11:16 . Limitations to Documentation: altered mental status . Information obtained by: patient . HPI Narrative: 80-year-old with multiple medical problems occluding history of bipolar, recently hospitalized for combative behavior, discharged yesterday, returns today with family who notes they are unable to care for her at home. Family states she remains altered and was combative today. Patient seems to be perseverating about her medications. Symptoms are severe per daughter. Review of systems and history limited secondary to altered mental status. Noted trauma. Patient denies pain. Related Data Home Medications Medication Instructions Recorded Confirmed cholecalciferol (vitamin D3) 2,000 unit PO DAILY 09/18/12 12/07/20 [Vitamin D3] multivitamin 1 ea PO DAILY 09/18/12 12/07/20 aspirin [Aspirin Low-Strength] 81 mg PO DAILY tab.chew 12/11/14 12/07/20 miconazole nitrate 2 % topical 1 applic TP DAILY 11/27/19 12/07/20 powder lithium carbonate 300 mg tablet 300 mg PO QHS 12/31/19 12/07/20 lorazepam 1 mg tablet 1 mg PO BID PRN 01/12/20 12/07/20 amlodipine 5 mg tablet 5 mg PO DAILY #30 tab 02/05/20 12/07/20 carvedilol 12.5 mg tablet 12.5 mg PO BID #60 tab 02/05/20 12/07/20 folic acid 1 mg tablet 1 mg PO DAILY #30 tab 02/05/20 12/07/20 levothyroxine 50 mcg tablet 50 mcg PO DAILY #30 tab 02/05/20 12/07/20 pantoprazole 40 mg tablet,delayed 40 mg PO DAILY #30 tab 02/05/20 12/07/20 release acetaminophen 500 mg tablet 1,000 mg PO TID PRN #270 tab 02/20/20 12/07/20 quetiapine [Seroquel] 200 mg PO QHS #0 tab 07/14/20 12/07/20 quetiapine 50 mg PO QAM 12/06/20 12/07/20 Previous Rx's Medication Instructions Recorded amlodipine 5 mg tablet 5 mg PO DAILY #30 tab 02/05/20 carvedilol 12.5 mg tablet 12.5 mg PO BID #60 tab 02/05/20 folic acid 1 mg tablet 1 mg PO DAILY #30 tab 02/05/20 levothyroxine 50 mcg tablet 50 mcg PO DAILY #30 tab 02/05/20 pantoprazole 40 mg tablet,delayed 40 mg PO DAILY #30 tab 02/05/20 release acetaminophen 500 mg tablet 1,000 mg PO TID PRN #270 tab 02/20/20 quetiapine [Seroquel] 200 mg PO QHS #0 tab 07/14/20 Allergies Allergy/AdvReac Type Severity Reaction Status Date / Time fluoxetine Allergy Mild Verified 12/07/20 12:19 olanzapine Allergy Mild Verified 12/07/20 12:19 trazodone Allergy Mild Verified 12/07/20 12:19 haloperidol AdvReac Severe Contraindic Verified 12/07/20 12:19 ated Phenothiazines AdvReac Severe DYSTONIA Verified 12/07/20 12:19 General Stated Complaint: AMS/LOC GRANT: 3 Review of Systems Unobtainable due to mental condition [facility] Medical History Bipolar 2 disorder (01/30/17) Per Dr. 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 Surgical History S/P ORIF (open reduction internal fixation) fracture Family History Brother Heart disease Stroke Brother Heart disease Other Hypertension Social History Smoking/Tobacco Use Status: Never Smoking risk assessment performed?: Yes Alcohol Intake: former Drug use: Never Substance use type: does not use Number of Children: 2 Pets and animals: Yes Pets and animals: cat(s) Current gender identity: female What type of physical activity do you participate in: walking Frequency: daily Seatbelt use: always Do you feel safe at home: Yes Do you feel safe in your relationship?: Yes Exam Const General: cooperative and anxious Orientation: alert, awake and oriented to person HENMT Head: normocephalic and atraumatic Mouth: moist mucous membranes Eyes Conjunctivae: normal conjunctivae Sclera: normal sclerae EOM: EOM intact bilaterally Resp Auscultation: clear to auscultation bilaterally, no rales, no rhonchi and no wheezes Cardio Jugular venous pressure: no JVD Rate: regular rate and not tachycardic Rhythm: regular rhythm GI Palpation: soft, not firm, no guarding, no masses, not rigid and nontender Skin General skin exam: no rashes or lesions noted Neuro General: patient alert, patient awake, oriented Patient Orientation: Person and Confused and tone normal Cognition: abnormal cognition Extrem General: no edema Psych Appearance: grossly normal Affect: other (Anxious) Attitude: cooperative Thought Process: perseverating Insight: poor Course Vital Signs Vital signs: Vital Signs Temperature 36.4 C L 12/07/20 11:14 Pulse 106 H 12/07/20 11:14 Respiratory Rate 18 12/07/20 11:14 Blood Pressure 142/100 H 12/07/20 11:14 Pulse Oximetry 97 12/07/20 11:14 Temperature 36.4 C L 12/07/20 11:14 Temperature Source Skin 12/07/20 11:14 Pulse 106 H 12/07/20 11:14 Respiratory Rate 18 12/07/20 11:14 Blood Pressure 142/100 H 12/07/20 11:14 Blood Pressure Position Sitting 12/07/20 11:14 Pulse Oximetry 97 12/07/20 11:14 Oxygen Delivery Method Room Air 12/07/20 11:14 Oxygen Flow Rate 0 12/07/20 11:14
[2020-12-07 13:29] VITALS: BP 143/86; PULSE 98; RESP 20; TEMP 36.4; O2SAT 97
[2020-12-07 13:38] LABS: Source Nasal/Nares
[2020-12-07] MEDS: QUEtiapine 25 MG TAB 50 MG PO (13:54)
[2020-12-07] MEDS: LORazepam 1 MG TAB PO (13:54)
[2020-12-07 13:55] VITALS: BP 142/65; PULSE 93; RESP 20; TEMP 36.6; O2SAT 97
[2020-12-07 14:28] LABS: COVID-19 PCR Negative (Negative)
[2020-12-07] MEDS: Acetaminophen 325 MG TAB PO (14:47)
[2020-12-07 15:26] VITALS: BP 144/88; PULSE 93; RESP 19; TEMP 36.4; O2SAT 96
[2020-12-07] MEDS: LORazepam 1 MG TAB (16:58)
--- NOTE | 2020-12-07 17:52 | W.PM.HP.N ---
Date of service: 12/07/20 Time of Service: 17:53 Assessment and Plan Assessment and plan (1) Agitation: Status: Acute Assessment and plan: Her agitation and combativeness seems to be a chronic concern and related to her BPD and she may also suffer from some dementia as well. Per her daughter, she perseverates on her medications and when she is not obsessed about her meds she becomes preoccupied about her bowel movements or about having cancer. I told Lluvia, the patient's daughter, that I will speak w/ Dr. Cardenas or one of the psychiatric nurse practitioners about her mother and discuss medication management. We will also look into trying to get her into [facility] in [place]. The patient apparently has been there in the past. (2) Bipolar 2 disorder: Status: Chronic Assessment and plan: cont. [place] 300 mg HS, incr. Seroquel to 100 mg in the a.m. and 200 mg at HS. Further adjustment based upon my discussion w/ her psychiatric providers tomorrow. History of Present Illness History of Present Illness Chief Complaint: agitation Narrative: 80 yr old female w/ PMH of BPD, psychotic depression, ?dementia, who receives ECT every 2 wks in addition to medications for her BPD and psychosis (including [place], Seroquel, and prn lorazepam for agitation) (patient had been under the care of Dr. Heath but now is under the care of Dr. Cardenas at [facility]) and she was hospitalized at [facility] from 12/05 to 12/06/2020 for worsening agitation, combativeness. Patient lives w/ her but became aggressive and combative after her lorazepam dose was reduced and she had just had her Seroquel dose increased (was on 200 mg HS and additional 50 mg was added in the morning. Patient was hospitalized overnight and her home meds were resumed including resumption of her lorazepam at 1 mg bid prn agitation and her Seroquel was continued at 50 mg qam and 200 mg qHS. Patient was seen by [facility] (Valerie Villarreal) and deemed to be mentally stable for outpatient follow up and did not require inpatient psychiatric treatment. Patient was discharged home to the care of her family as she was cooperative and taking her meds. However the family brought her back to the ER today when patient became aggressive towards her daughter and when they tried to get her to take the rest of her morning meds. Patient had overslept and was late in taking her medications. She did take her levothyroxine and protonix but when her daughter and her tried to get her to take the rest of her morning medications she became aggressive and tried to charge at them. Her daughter Lluvia called human services who advised the family to bring her to the emergency room. Lluvia indicated that the patient has been tried on various antipsychotic w/ a number of different doseasges. Patient previously had been on higher dose of lithium up to 450 mg per day but developed toxicity. She was also on alternating 300 mg w/ 450 mg per day and seemed to do ok. She was intolerant of Depakote d/t severe somnolence. I told Lluvia that I will reach out to YELITZA to Dr. Cardenas to try to have a phone consultation to discuss med adjustment. Review of Systems Unobtainable due to mental condition [facility] Medical History Bipolar 2 disorder (01/30/17) Per Dr. 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 Surgical History S/P ORIF (open reduction internal fixation) fracture Family History Brother Heart disease Stroke Brother Heart disease Other Hypertension Social History Smoking/Tobacco Use Status: Never Smoking risk assessment performed?: Yes Alcohol Intake: former Drug use: Never Substance use type: does not use Number of Children: 2 Pets and animals: Yes Pets and animals: cat(s) Current gender identity: female What type of physical activity do you participate in: walking Frequency: daily Seatbelt use: always Do you feel safe at home: Yes Do you feel safe in your relationship?: Yes Meds Allergies and Home Medications Allergies Allergy/AdvReac Type Severity Reaction Status Date / Time fluoxetine Allergy Mild Verified 12/07/20 12:19 olanzapine Allergy Mild Verified 12/07/20 12:19 trazodone Allergy Mild Verified 12/07/20 12:19 haloperidol AdvReac Severe Contraindic Verified 12/07/20 12:19 ated Phenothiazines AdvReac Severe DYSTONIA Verified 12/07/20 12:19 Home Medications Medication Instructions Recorded Confirmed Type cholecalciferol (vitamin D3) 2,000 unit PO DAILY 09/18/12 12/07/20 History [Vitamin D3] multivitamin 1 ea PO DAILY 09/18/12 12/07/20 History aspirin [Aspirin Low-Strength] 81 mg PO DAILY tab.chew 12/11/14 12/07/20 History miconazole nitrate 2 % topical 1 applic TP DAILY 11/27/19 12/07/20 History powder lithium carbonate 300 mg tablet 300 mg PO QHS 12/31/19 12/07/20 History lorazepam 1 mg tablet 1 mg PO BID PRN 01/12/20 12/07/20 History amlodipine 5 mg tablet 5 mg PO DAILY #30 tab 02/05/20 12/07/20 Rx carvedilol 12.5 mg tablet 12.5 mg PO BID #60 tab 02/05/20 12/07/20 Rx folic acid 1 mg tablet 1 mg PO DAILY #30 tab 02/05/20 12/07/20 Rx levothyroxine 50 mcg tablet 50 mcg PO DAILY #30 tab 02/05/20 12/07/20 Rx pantoprazole 40 mg tablet,delayed 40 mg PO DAILY #30 tab 02/05/20 12/07/20 Rx release acetaminophen 500 mg tablet 1,000 mg PO TID PRN #270 tab 02/20/20 12/07/20 Rx quetiapine [Seroquel] 200 mg PO QHS #0 tab 07/14/20 12/07/20 Rx quetiapine 50 mg PO QAM 12/06/20 12/07/20 History Exam Narrative Exam Narrative: Elderly white female lying in bed. She is alert, she is oriented to person and place (knows that she is in the hospital) however she is obsessed w/ her medication list and perseverates on her medications all being wrong and not being given at the correct times despite multiple people explaining to her that her meds have been reordered as prescribed at home. Patient is dressed in her street clothes as she refuses to put on hospital gowns. HEENT unremarkable, speech is clear, coherent; eyes w/out nystagmus; no facial asymmetry Neck: supple and nontender Lungs: clear Heart: regular Abdomen: soft and nontender Results Labs Labs: Laboratory Results - last 24 hr 12/07/20 13:18 COVID-19 Source Nasal/Nares SARS-CoV-2 (PCR) Negative Last Vital Signs Temp 36.4 C L 12/07/20 15:26 Pulse 93 H 12/07/20 15:26 Resp 19 12/07/20 15:26 BP 144/88 H 12/07/20 15:26 Pulse Ox 96 12/07/20 15:26
[2020-12-07 23:52] VITALS: BP 152/92; PULSE 86; RESP 20; TEMP 36.3; O2SAT 97
[2020-12-08] MEDS: Acetaminophen 325 MG TAB PO ×2 (02:02→11:00)
[2020-12-08] MEDS: LORazepam 1 MG TAB PO ×3 (02:05→17:00)
[2020-12-08 07:14] LABS: HCT 38.8 % (36.0-46.0); HGB 12.1 g/dL (11.2-15.7); MCH 27.5 pg (27.0-33.0); MCHC 31.2 % (32.0-36.0); MCV 88.2 fL (80-95); MPV 9.3 fL (8.0-11.0); Platelet Count 291 10^3/uL (130-400); RDW 14.3 % (11.7-14.6); RDW-SD 46.5 fL; WBC 6.49 10^3/uL (4.4-10.8)
[2020-12-08 07:41] VITALS: BP 164/90; PULSE 86; RESP 18; TEMP 37.1; O2SAT 97
[2020-12-08] MEDS: Carvedilol 12.5 MG TAB PO ×2 (08:11→22:12)
[2020-12-08] MEDS: QUEtiapine 25 MG TAB 100 MG PO (08:11)
[2020-12-08] MEDS: Pantoprazole 40 MG TABCR PO (08:11)
[2020-12-08] MEDS: amLODIPine 5 MG TAB PO (08:12)
[2020-12-08] MEDS: Levothyroxine 50 MCG TAB PO (08:13)
--- NOTE | 2020-12-08 09:44 | NUR.NOTE ---
Nursing Note: 0925: pt has been appropriate with interactions with this scribe this morning. pt is fixated on medications and what she should be taking this morning. it appears that pt takes medication from pill boxes at home and is not clear as to what each one is, rather that she takes pills from a certain color pill box at certain times. from the medication list provided by family, it also appears that the pt has several pill boxes around the house as it indicates to take pills from the counter the basket the headboard at various times throughout the day. there are medications listed on the med list provided by the family, that indicate meds to be taken at Noon and 1400; pt only has daily and HS meds ordered at this time. RN was able to administer several medications this morning to pt with time and patience. pt declined breakfast but is drinking water when offered by RN and has had 400 cc intake this morning. pt has not rested since admission on 12/07/20. RN sits with pt at the bedside, pt is obviously drowsy with eyes closing frequently but pt fights sleep and sits back up in an attempt to stay awake. pt has declined to get oob to the chair this am; RN awaiting medication to take full effect and will attempt again to toilet and bathe the pt.
--- NOTE | 2020-12-08 13:37 | INITIAL_ITS ---
- If Service Date Differs Date of service: 12/08/20 Time of Service: 13:38 Care Management Initial Assess REASON FOR HOSPITALIZATION:: Agitation, failure to thrive PAST MEDICAL HISTORY/PAST SURGICAL HISTORY:: Bipolar 2 disorder (01/30/17). Per Dr. Heath, with severe treatment resistant dpressive phases vs treatment resistant depression 01/25/17 RH. CKD (chronic kidney disease). Deep vein thrombosis (12/08/13). GERD (gastroesophageal reflux disease). HLD (hyperlipidemia). HTN (hypertension). Hypothyroidism (11/11/12). Tardive dyskinesia (04/17/16). Dr. Esther Heath. 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 S/P ORIF (open reduction internal fixation) fracture PREVIOUS FUNCTIONAL STATUS/SOCIAL/FAMILY SUPPORTS:: Stacy resides in [facility] with her , Lalito. Her daughter Lluvia lives close by and is her legal guardian, and supportive in her care needs. Lluvia is diagnosed with bipolar disorder 2, as well as dementia, her family manages her primary care needs. CURRENT FUNCTIONAL STATUS:: Stacy is in bed, in constant movement, perseverating on medications. Lluvia and Nursing is attempting to support her. ADVANCE DIRECTIVES:: On file, daughter Lluvia as guardian, Lalito as agent. Has patient been provided with info about the portal/API?: No Did the patient sign up for the portal?: No CODE STATUS:: Full Code INSURANCE COVERAGE / FINANCIAL ISSUES:: Medicare. AARP CURRENT HOME/COMMUNITY SERVICES/EQUIPMENT:: Medication management; Dr. Cardenas at [facility]. PRIMARY CARE PHYSICIAN:: Patricia Goss POTENTIAL DISCHARGE NEEDS:: Evaluations for increased needs; possible placement- referral to [facility] completed. MD-MD: Dr. Ferguson and Dr. Cardenas. PATIENT/FAMILY EDUCATION NEEDS:: Review discharge instructions, discuss Ask Me Three. ANTICIPATED BARRIERS TO DISCHARGE:: Patient presentation, agitation. TRANSPORTATION:: TBD by disposition. PLAN:: Stacy continues to be closely monitored and treated, she has continued to have periods of agitation and required additional support with accepting medications. faxed referral to [facility]; awaiting determination-no beds availability anticipated for at least a week at this time. Stacy will meet with Valerie of [facility], as well. Dr. Ferguson will connect with Dr. Cardenas to discuss medication adjustments. CM continues to follow.
[2020-12-08] MEDS: QUEtiapine 25 MG TAB PO ×2 (13:47→19:30)
[2020-12-08] MEDS: Lithium Carbonate 300 MG CAP PO (15:20)
[2020-12-08 15:36] VITALS: BP 165/86; PULSE 86; RESP 20; TEMP 36.5; O2SAT 99
--- NOTE | 2020-12-08 16:53 | W.PM.PROGNOT ---
Date of Service Date of service: 12/08/20 Time of Service: 16:53 Assessment and Plan Assessment and plan (1) Agitation: Status: Acute Assessment and plan: trial of Klonopin 0.25 mg bid during the day, continue her Seroquel at reduced dose of 100 mg HS; trial of low dose Ambien at night since melatonin is not working. (2) Bipolar 2 disorder: Status: Chronic Assessment and plan: cont. [place] 300 mg HS, Seroquel doses changed as noted above. Patient has been intolerant of higher doses of [place]. She did take her lithium dose early today. Case d/w Dr. Cardenas this morning. Subjective Subjective Interval history since last seen: Patient has been agitated all day. Reportedly not sleeping at night. I had a phone conversation w/ her psychiatrist, Dr. Cardenas, this morning, and he recommended adding smaller more frequent Seroquel doses such as 25 mg bid and reduce her night dose to 100 mg. He has been trying to avoid benzodiazepines in her d/t incr confusion in elderly. However, I explained to him that Lluvia her daughter has been frustrated w/ her mother's behavior w/ agitation and aggressiveness. I am discontinuing her Ativan but put her on scheduled dose of Klonapin 0.25 mg bid to see if this controls her agitation. Also she needs a good night sleep. I will trial Ambien. I usually avoid this in elderly but I think this is safer than giving her higher doses of antipsychotics and she has allergy to trazodone. At least w/ ambien it has short half life and if she does not tolerate this I can stop the Ambien. Exam Narrative Exam Narrative: confused and agitated. This afternoon she has been constantly trying to elope from her room. She is restless and not making much sense. Objective Last Vital Signs Temp 36.5 C 12/08/20 15:36 Pulse 86 12/08/20 15:36 Resp 20 12/08/20 15:36 BP 165/86 H 12/08/20 15:36 Pulse Ox 99 12/08/20 15:36 Laboratory Results - last 24 hr 12/08/20 06:18 WBC 6.49 RBC 4.40 Hgb 12.1 Hct 38.8 MCV 88.2 MCH 27.5 MCHC 31.2 L RDW 14.3 Plt Count 291 MPV 9.3
[2020-12-08] MEDS: Polyethylene Glycol 3350 17 GM PACKET PO (17:08)
[2020-12-08] MEDS: clonazePAM 0.5 MG TAB 0.25 MG PO (17:17)
[2020-12-08] MEDS: Melatonin 3 MG TAB 9 MG PO (22:12)
[2020-12-08] MEDS: QUEtiapine 100 MG TAB PO (22:12)
[2020-12-08] MEDS: Zolpidem 6.25 MG TABCR PO (22:12)
[2020-12-09 01:14] VITALS: RESP 18
[2020-12-09 08:54] VITALS: BP 122/78; PULSE 67; RESP 16; TEMP 36.7; O2SAT 94
[2020-12-09] MEDS: Aspirin 81 MG CHEW PO (08:56)
[2020-12-09] MEDS: Pantoprazole 40 MG TABCR PO (08:56)
[2020-12-09] MEDS: Cholecalciferol (Vitamin D3) 1,000 UNIT TAB 2000 UNITS PO (08:56)
[2020-12-09] MEDS: amLODIPine 5 MG TAB PO (08:56)
[2020-12-09] MEDS: Multivitamin TAB 1 TAB PO (08:56)
[2020-12-09] MEDS: Folic Acid 1 MG TAB PO (08:56)
[2020-12-09] MEDS: Carvedilol 12.5 MG TAB PO ×2 (08:56→19:21)
[2020-12-09] MEDS: Levothyroxine 50 MCG TAB PO (08:56)
[2020-12-09] MEDS: clonazePAM 0.5 MG TAB 0.25 MG PO ×2 (08:56→14:01)
[2020-12-09] MEDS: QUEtiapine 25 MG TAB PO ×3 (08:57→19:21)
--- NOTE | 2020-12-09 10:13 | NUR.NOTE ---
Nursing Note: At 1000 on 12/09/20, this RN returned a call from Lluvia Briceno (the pt.'s daughter). RN updated the pt.'s daughter regarding the pt.'s mentation, VS, pain level, head to toe assessment, plan of care, medications administered, etc. Pt.'s daughter verbalized understanding and presented with a few questions that were answered. Pt.'s daughter states that she has tried to ask the MD and the day care director about the possibility of getting the pt. transferred [place] [facility] where the pt.'s specialists are, as well as, where the pt. receives electroconvulsive therapy. RN informed the pt.'s daughter that they would mention this to the charge nurse so that it could be mentioned to the MD again. RN will reassess as necessary.
[2020-12-09] MEDS: Enoxaparin 30 MG/0.3 ML SYR SC (14:01)
--- NOTE | 2020-12-09 14:32 | PGE_ITS ---
Date of Service Date of service: 12/09/20 Time of Service: 14:33 Assessment and Plan Assessment and plan (1) Agitation: Status: Acute Assessment and plan: cont. low dose Klonopin 0.25 mg bid during the day, along w/ her Seroquel 25 mg tid and Seroquel 100 mg at HS. Ambien CR 6.25 mg at HS. (2) Bipolar 2 disorder: Status: Chronic Assessment and plan: cont. [place] 300 mg HS, Seroquel doses changed as noted above. Patient has been intolerant of higher doses of [place]. Case d/w Dr. Cardenas yesterday. Subjective Subjective Interval history since last seen: Patient has been cooperative w/ taking her meds this morning. She is still restless and perseverates on her medications/schedule. She is convinced that her daughter does not know what meds she is to be taking or on what schedule. She also thinks that the nursed do not know her meds. Stacy slept last night. she did have a rough time on evening shift but once she got her evening Seroquel and Ambien she did sleep. I went over the patient's recent med changes w/ Lluvia and explained them and the child care center administrator walked in and joined our conversation. I also sat next to the patient and directed my conversation to her explaining the recent med changes. Her Seroquel dose was adjusted at the recommendation of Dr. Cardenas her psychiatrist however, I explained that the addition of Klonopin and Ambien were mine. Exam Narrative Exam Narrative: Patient is sitting in her chair. She did not try to get up on her own nor did she try to grab my papers like she did yesterday. At times she was tearful. She still perseverates on her meds. She has a list of her meds in front of her that was handwrittten for her. She is not exhibiting any dyskinesia. She is still restless but she is more alert and following the conversation compared to yesterday. Objective Last Vital Signs Temp 36.7 C 12/09/20 08:54 Pulse 67 12/09/20 08:54 Resp 16 12/09/20 08:54 BP 122/78 12/09/20 08:54 Pulse Ox 94 12/09/20 08:54
[2020-12-09 15:39] VITALS: BP 136/82; PULSE 72; RESP 19; TEMP 36.6; O2SAT 97
--- NOTE | 2020-12-09 17:15 | CMPROGNOTE_ITS ---
Care Management Progress Note S/O: Stacy was sitting up in her chair, her mother on her bedside, meeting with Dr. Ferguson when CM met with her. She continues to perseverate on medications and requested an updated list of medications-CM notified GUERRERO Vincent of request. Plan at this time is to attempt stabilization through medication adjustments and discharge Stacy to home. CM continues to follow. A: 80 year old female admitted to [facility] on 12/07/20 for agitation, failure to thrive P: Stacy continues to be closely monitored and treated, she has continued to have periods of agitation and required additional support with accepting medications. LASHAWN declined referral. Dr. Ferguson continues to work with Dr. Cardenas in regard to medication adjustments. CM continues to follow.
[2020-12-09] MEDS: Melatonin 3 MG TAB 9 MG PO (19:21)
[2020-12-09] MEDS: QUEtiapine 100 MG TAB PO (19:21)
[2020-12-09] MEDS: Zolpidem 6.25 MG TABCR PO (19:21)
[2020-12-09] MEDS: Lithium Carbonate 300 MG CAP PO (21:04)
[2020-12-09 21:42] VITALS: BP 132/79; PULSE 81; RESP 18; TEMP 36.6; O2SAT 98
[2020-12-10] MEDS: Levothyroxine 50 MCG TAB PO (07:36)
[2020-12-10 07:43] VITALS: BP 133/71; PULSE 66; RESP 18; TEMP 36.5; O2SAT 95
[2020-12-10] MEDS: Multivitamin TAB 1 TAB PO (08:35)
[2020-12-10] MEDS: Folic Acid 1 MG TAB PO (08:35)
[2020-12-10] MEDS: Carvedilol 12.5 MG TAB PO ×2 (08:35→19:49)
[2020-12-10] MEDS: amLODIPine 5 MG TAB PO (08:35)
[2020-12-10] MEDS: QUEtiapine 25 MG TAB PO ×3 (08:35→19:49)
[2020-12-10] MEDS: Cholecalciferol (Vitamin D3) 1,000 UNIT TAB 2000 UNITS PO (08:35)
[2020-12-10] MEDS: Aspirin 81 MG CHEW PO (08:35)
[2020-12-10] MEDS: clonazePAM 0.5 MG TAB 0.25 MG PO ×2 (08:35→13:59)
[2020-12-10] MEDS: Pantoprazole 40 MG TABCR PO (08:35)
--- NOTE | 2020-12-10 09:50 | CMPROGNOTE_ITS ---
Care Management Progress Note S/O: Stacy continues to make gains toward stabilization. Plan remains to attempt stabilization through medication adjustments and discharge Stacy to home. CM reviewed with Lluvia, daughter that if Stacy remains stable through the weekend she will discharge to home on Sunday. CM continues to follow. A: 80 year old female admitted to [facility] on 12/07/20 for agitation, failure to thrive P: Stacy continues to be closely monitored and treated, and acute for medication adjustments. 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 CM continues to follow.
--- NOTE | 2020-12-10 13:35 | W.PM.PROGNOT ---
Date of Service Date of service: 12/10/20 Time of Service: 13:35 Assessment and Plan Assessment and plan (1) Agitation: Status: Acute Assessment and plan: cont. low dose Klonopin 0.25 mg bid during the day, along w/ her Seroquel 25 mg tid and Seroquel 100 mg at HS. Ambien CR 6.25 mg at HS and melatonin at night. (note she had just been on melatonin but was not sleeping adequately, since Ambien was added she is now sleeping through the night. (2) Bipolar 2 disorder: Status: Chronic Assessment and plan: cont. [place] 300 mg HS, Seroquel doses changed as noted above. Patient has been intolerant of higher doses of [place]. Case d/w Dr. Cardenas yesterday. (3) Constipation: Status: Chronic Assessment and plan: last BM 48hr ago.She is on prn docusate and miralax and dulcolax. I will ask nursing to put her on scheduled docusate and give her dose of Miralax today. Qualifiers: Constipation type: unspecified constipation type Qualified Code(s): K59.00 - Constipation, unspecified (4) Essential hypertension: Status: Chronic Assessment and plan: her bp is much improved since she has been on the klonopin. I think a lot of her elevated BP on admission was d/t her agitation. 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 (5) GERD (gastroesophageal reflux disease): Status: Chronic Assessment and plan: patient is chronically on protonix 40 mg daily Qualifiers: Esophagitis presence: esophagitis presence not specified Qualified Code(s): K21.9 - Gastro-esophageal reflux disease without esophagitis (6) Discharge planning issues: Status: Acute Assessment and plan: Per my discussion w/ CM yesterday and today, the patient was not accepted for admission to [facility]. The patient previously had been an inpatient there and [place] [facility]unclear reason but from my discussion w/ her daughter Lluvia yesterday, the patient had worsening psychosis which led to lengthy hospitalizations at both [facility] [place] [facility] It is my opinion that if the patient continues to cooperate w/ her medicaation schedule and does not present to be a behaviorial issue w/ aggression then I think that the patient should return home to family on Sunday unless they are seeking assisted placement. An acute inpatient stay will no longer be necessary if she is taking her meds and she is calm and cooperative. Patient remains full code Subjective Subjective Interval history since last seen: Patient slept well last night. She has been taking her medications (w/ a lot of encouragement from nursing). She still perseverates on her medications and timing of her meds. She indicates that her daughter does not care for her and will not give her medications the way the patient feels she is suppose to have them. The patient at times will swear at staff but has not been physically aggressive and has not tried to elope. Exam Narrative Exam Narrative: Patient is sitting up in her chair and staff is grooming her hair. She is calm and cooperative for nursing staff. Voice is tremulous but she is alert, and reponds to questions appropriately although she seems to be fixated on her medication schedule. She is upset that she slept in until 7:20 a.m. and only had 40 minutes until breakfast to get some of her morning meds into her. (she takes her synthroid and her protonix first thing in the morning before breakfast. Lungs are clear Heart is regular Abdomen: soft, not distended and not tender. Objective Last Vital Signs Temp 36.5 C 12/10/20 07:43 Pulse 66 12/10/20 07:43 Resp 18 12/10/20 07:43 BP 133/71 12/10/20 07:43 Pulse Ox 95 12/10/20 07:43
[2020-12-10] MEDS: Enoxaparin 30 MG/0.3 ML SYR SC (13:59)
[2020-12-10] MEDS: Polyethylene Glycol 3350 17 GM PACKET PO (13:59)
[2020-12-10 15:23] VITALS: BP 128/84; PULSE 80; RESP 22; TEMP 36.8; O2SAT 94
[2020-12-10 19:30] VITALS: BP 140/73; PULSE 66; RESP 18; TEMP 36.5; O2SAT 98
[2020-12-10] MEDS: QUEtiapine 100 MG TAB PO (19:48)
[2020-12-10] MEDS: Docusate Sodium 100 MG CAP PO (19:48)
[2020-12-10] MEDS: Lithium Carbonate 300 MG CAP PO (19:48)
[2020-12-10] MEDS: Zolpidem 6.25 MG TABCR PO (19:48)
[2020-12-10] MEDS: Melatonin 3 MG TAB 9 MG PO (19:49)
[2020-12-10 22:32] VITALS: BP 106/70; PULSE 73; RESP 17; TEMP 36; O2SAT 95
[2020-12-11] MEDS: Pantoprazole 40 MG TABCR PO (06:04)
[2020-12-11] MEDS: Levothyroxine 50 MCG TAB PO (06:04)
[2020-12-11 07:00] LABS: HCT 37.4 % (36.0-46.0); HGB 11.6 g/dL (11.2-15.7); MCH 27.6 pg (27.0-33.0); MCV 88.8 fL (80-95); MPV 9.4 fL (8.0-11.0); Platelet Count 267 10^3/uL (130-400); RBC 4.21 10^6/uL (3.93-5.22); RDW 14.5 % (11.7-14.6); RDW-SD 46.9 fL; WBC 5.93 10^3/uL (4.4-10.8)
[2020-12-11] MEDS: Carvedilol 12.5 MG TAB PO ×2 (07:45→20:24)
[2020-12-11] MEDS: Docusate Sodium 100 MG CAP PO (07:45)
[2020-12-11] MEDS: amLODIPine 5 MG TAB PO (07:45)
[2020-12-11] MEDS: Cholecalciferol (Vitamin D3) 1,000 UNIT TAB 2000 UNITS PO (07:45)
[2020-12-11] MEDS: Folic Acid 1 MG TAB PO (07:45)
[2020-12-11] MEDS: Aspirin 81 MG CHEW PO (07:45)
[2020-12-11] MEDS: QUEtiapine 25 MG TAB PO ×3 (07:45→20:25)
[2020-12-11 07:46] VITALS: BP 142/82; PULSE 83; RESP 19; TEMP 36.6; O2SAT 97
[2020-12-11] MEDS: Multivitamin TAB 1 TAB PO (07:46)
[2020-12-11] MEDS: clonazePAM 0.5 MG TAB 0.25 MG PO ×2 (07:46→14:07)
--- NOTE | 2020-12-11 11:10 | PGE_ITS ---
Date of Service Date of service: 12/11/20 Time of Service: 11:10 Assessment and Plan Assessment and plan (1) Bipolar 2 disorder: Status: Chronic Assessment and plan: With anxiety and agitation. Currently with ongoing anxiety; perseverating over her medications. Klonipin was added yesterday. Also added yesterday was Ambien to help regulate her sleep-wake cycle. Cont her Seroqeul; dosage was adjusted yesterday. Cont lithium. (2) Constipation: Status: Chronic Assessment and plan: Now with frequent loose stool. Stopped scheduled Senna. Cont prn MIralax and Colace. Qualifiers: Constipation type: unspecified constipation type Qualified Code(s): K59.00 - Constipation, unspecified (3) Essential hypertension: Status: Chronic Assessment and plan: Cont Coreg and monitor. Has improved with addition of Klonipin; some anxiety driven elevations were likely occuring. (4) Chronic kidney disease, stage III (moderate): Status: Chronic Assessment and plan: Creatinine of 1.4 Recent baseline around 1.2. Encourage po intake. (5) Discharge planning issues: Status: Acute Assessment and plan: She was not accepted for admission to [facility]. The patient previously had been an inpatient there and required transfer out [place] [facility]unclear reason but from my discussion w/ her daughter Lluvia yesterday, the patient had worsening psychosis which led to lengthy hospitalizations at both [facility] [place] [facility]). If the patient continues to cooperate w/ her medicaation schedule and does not present to be a behaviorial issue w/ aggression then she should return home to family on Sunday unless they are seeking custodial placement. An acute inpatient stay will no longer be necessary if she is taking her meds and she is calm and cooperative. Patient remains full code Subjective Subjective Patient reports: afebrile; denies nausea, vomiting and shortness of breath Interval history since last seen: Ms Orosco is sitting in the recliner. Anxious appearing and suspicious of who I am. She has her list of medications and the times they are administered in front of her on her tray. States she is eating well. She c/o frequent stools. Is not reliable as to the number of stools or the time frame. She states she didn't sleep well last PM but this contradicts nursing staff reports. Exam Const General: no acute distress Nutritional Appearance: average body habitus Orientation: alert Neck Neck: full ROM and no JVD Resp Effort & Inspection: normal respiratory effort Auscultation: clear to auscultation bilaterally Cardio Rate: regular rate Rhythm: regular rhythm Heart Sounds: S1 normal and S2 normal GI Palpation: soft and nontender Auscultation: normal bowel sounds Extrem General: no pedal edema and no calf tenderness Psych Appearance: grossly normal Affect: anxious affect Thought Process: impoverished Thought Content: obsessions Insight: poor Objective Last Vital Signs Temp 36.6 C 12/11/20 07:46 Pulse 83 12/11/20 07:46 Resp 19 12/11/20 07:46 BP 142/82 H 12/11/20 07:46 Pulse Ox 97 12/11/20 07:46 Laboratory Results - last 24 hr 12/11/20 06:15 WBC 5.93 RBC 4.21 Hgb 11.6 Hct 37.4 MCV 88.8 MCH 27.6 MCHC 31.0 L RDW 14.5 Plt Count 267 MPV 9.4
[2020-12-11] MEDS: Enoxaparin 30 MG/0.3 ML SYR SC (14:07)
[2020-12-11 15:00] VITALS: BP 155/87; PULSE 88; RESP 18; TEMP 36.6; O2SAT 95
[2020-12-11 20:05] VITALS: BP 163/73; PULSE 84; RESP 18; TEMP 36.6; O2SAT 96
[2020-12-11] MEDS: Zolpidem 6.25 MG TABCR PO (20:25)
[2020-12-11] MEDS: Melatonin 3 MG TAB 9 MG PO (20:25)
[2020-12-11] MEDS: Lithium Carbonate 300 MG CAP PO (20:25)
[2020-12-11] MEDS: QUEtiapine 100 MG TAB PO (20:25)
[2020-12-12] MEDS: Pantoprazole 40 MG TABCR PO (05:52)
[2020-12-12] MEDS: Levothyroxine 50 MCG TAB PO (05:53)
[2020-12-12 07:30] VITALS: BP 169/87; PULSE 78; RESP 16; TEMP 36.3; O2SAT 97
[2020-12-12] MEDS: clonazePAM 0.5 MG TAB 0.25 MG PO ×2 (07:45→14:10)
[2020-12-12] MEDS: Aspirin 81 MG CHEW PO (07:45)
[2020-12-12] MEDS: QUEtiapine 25 MG TAB PO ×3 (07:45→19:40)
[2020-12-12] MEDS: Cholecalciferol (Vitamin D3) 1,000 UNIT TAB 1000 UNITS PO (07:45)
[2020-12-12] MEDS: Multivitamin TAB 1 TAB PO (07:45)
[2020-12-12] MEDS: Carvedilol 12.5 MG TAB PO ×2 (07:45→19:40)
[2020-12-12] MEDS: Folic Acid 1 MG TAB PO (07:45)
[2020-12-12] MEDS: amLODIPine 5 MG TAB PO (07:45)
--- NOTE | 2020-12-12 10:45 | W.PM.PROGNOT ---
Date of Service Date of service: 12/12/20 Time of Service: 10:45 Assessment and Plan Assessment and plan (1) Bipolar 2 disorder: Status: Chronic Assessment and plan: With anxiety and agitation. Currently with ongoing anxiety; perseverating over her medications. Klonipin has helped with her previous agitation. Manuelaien has helped aid in her sleep. Cont her Seroquel. Cont lithium. (2) Constipation: Status: Chronic Assessment and plan: Loose stool on 12/10 and none since. Stopped scheduled Senna; now prn. Cont prn MIralax and Colace. Qualifiers: Constipation type: unspecified constipation type Qualified Code(s): K59.00 - Constipation, unspecified (3) Essential hypertension: Status: Chronic Assessment and plan: Cont Coreg and monitor. (4) Chronic kidney disease, stage III (moderate): Status: Chronic Assessment and plan: Creatinine of 1.4 on 12/05. Recent baseline around 1.2. Encourage po intake. BMP in AM (5) Discharge planning issues: Status: Acute Assessment and plan: She was not accepted for admission to [facility]. The patient previously had been an inpatient there and required transfer out to [facility] [place] (unclear reason but from my discussion w/ her daughter Lluvia yesterday, the patient had worsening psychosis which led to lengthy hospitalizations at both [facility] and [facility]). If the patient continues to cooperate w/ her medicaation schedule and does not present to be a behaviorial issue w/ aggression then she should return home to family on Sunday unless they are seeking assisted placement. An acute inpatient stay will no longer be necessary if she is taking her meds and she is calm and cooperative. Patient remains full code Subjective Subjective Patient reports: afebrile; denies nausea, vomiting and shortness of breath Interval history since last seen: Ms Orosco is sitting in the recliner. Anxious appearing and suspicious of who I am. She continuous to have her list of medications and the times they are administered in front of her on her tray. States she is eating well. Last recorded stool was on 12/10. Exam Const General: no acute distress Nutritional Appearance: average body habitus Orientation: alert Neck Neck: full ROM and no JVD Resp Effort & Inspection: normal respiratory effort Auscultation: clear to auscultation bilaterally Cardio Rate: regular rate Rhythm: regular rhythm Heart Sounds: S1 normal and S2 normal GI Palpation: soft and nontender Auscultation: normal bowel sounds Extrem General: no pedal edema and no calf tenderness Psych Appearance: grossly normal Affect: anxious affect Thought Process: impoverished Thought Content: obsessions Insight: poor Objective Last Vital Signs Temp 36.3 C L 12/12/20 07:30 Pulse 78 12/12/20 07:30 Resp 16 12/12/20 07:30 BP 169/87 H 12/12/20 07:30 Pulse Ox 97 12/12/20 07:30
[2020-12-12] MEDS: Enoxaparin 30 MG/0.3 ML SYR SC (14:10)
[2020-12-12] MEDS: Acetaminophen 325 MG TAB PO (14:10)
[2020-12-12 16:00] VITALS: BP 156/86; PULSE 79; RESP 16; TEMP 36.7; O2SAT 97
--- NOTE | 2020-12-12 17:38 | NUR.NOTE ---
Nursing Note: 1700 12/12/20 patients son came to visit with his partner. This RN was sitting at nurses station documenting and could hear son arguing/raising voice. This RN overheard conversations asking patient how many times a day she takes meds and what are you going to do when you get home? all things that patient has been over-worried about since her arrival. patient had a good day today with this RN. did not focus as much on the med list. talked with nurse about her hair and what foods she likes. walked a loop in the hallway with nurse. willing to take tylenol for arthritis pain. When this RN walked into patients room to see patients son, patient was crying. RN asked if patient was okay and patient replied just forget about it. this RN told family that patient had a good day and hadn't been emotional all day, and that this conversation might be better for another time. patients son replied with yeah we've been dealing with this for 25 years. this RN said okay, I'll be back later to check in.
[2020-12-12] MEDS: QUEtiapine 100 MG TAB PO (22:34)
[2020-12-12] MEDS: Lithium Carbonate 300 MG CAP PO (22:34)
[2020-12-12] MEDS: Melatonin 3 MG TAB 9 MG PO (22:34)
[2020-12-12] MEDS: Zolpidem 6.25 MG TABCR PO (22:34)
[2020-12-12 23:44] VITALS: BP 114/73; PULSE 78; RESP 16; TEMP 36.3; O2SAT 98
[2020-12-13] MEDS: Levothyroxine 50 MCG TAB PO (06:00)
[2020-12-13 08:14] VITALS: BP 158/85; PULSE 77; RESP 17; TEMP 36.6; O2SAT 97
[2020-12-13] MEDS: clonazePAM 0.5 MG TAB 0.25 MG PO ×2 (08:17→14:04)
[2020-12-13] MEDS: Cholecalciferol (Vitamin D3) 1,000 UNIT TAB 1000 UNITS PO (08:18)
[2020-12-13] MEDS: Pantoprazole 40 MG TABCR PO (08:18)
[2020-12-13] MEDS: Multivitamin TAB 1 TAB PO (08:18)
[2020-12-13] MEDS: amLODIPine 5 MG TAB PO (08:18)
[2020-12-13] MEDS: Aspirin 81 MG CHEW PO (08:18)
[2020-12-13] MEDS: Folic Acid 1 MG TAB PO (08:18)
[2020-12-13] MEDS: QUEtiapine 25 MG TAB PO ×2 (08:18→14:04)
[2020-12-13] MEDS: Carvedilol 12.5 MG TAB PO (08:18)
[2020-12-13 10:35] LABS: Anion Gap 8.8 mmol/L (3-11); BUN 39 mg/dL (7-18); CO2 23.2 mmol/L (21.0-32.0); CREATININE 1.4 mg/dL (0.55-1.02); Calcium 8.9 mg/dL (8.5-10.1); Chloride 108 mmol/L (98-107); Estimated GFR 36.09 (mL/min/1.73m2); Glucose 130 mg/dL (74-106); Potassium 3.9 mmol/L (3.5-5.1); Sodium 140 mmol/L (136-145)
--- NOTE | 2020-12-13 12:37 | W.PM.DS.N ---
Date of service: 12/13/20 Time of Service: 12:38 DS: Diagnosis Discharge Diagnosis (1) Bipolar 2 disorder: Status: Chronic (2) Constipation: Status: Chronic (3) Essential hypertension: Status: Chronic (4) Chronic kidney disease, stage III (moderate): Status: Chronic (5) Discharge planning issues: Status: Acute Discharge Plan Disposition Patient Disposition: HOME W/HOME HEALTH SERVICE Condition: Stable Discharge Details Reason For Visit: Agitation, Failure to Thrive Admit Date/Time: 12/07/20 12:52 Admit Provider: Krishan Ferguson Attending Provider: Krishan Ferguson Primary Care Provider: Wolfgang,[facility] Hospital Course: 80 yr old female w/ PMH of BPD, psychotic depression, ?dementia, who receives ECT every 2 wks in addition to medications for her BPD and psychosis (including [place], Seroquel, and prn lorazepam for agitation) (patient had been under the care of Dr. Heath but now is under the care of Dr. Cardenas at [facility]) and she was hospitalized at [facility] from 12/05 to 12/06/2020 for worsening agitation, combativeness. Patient lives w/ her but became aggressive and combative after her lorazepam dose was reduced and she had just had her Seroquel dose increased (was on 200 mg HS and additional 50 mg was added in the morning. Patient was hospitalized overnight and her home meds were resumed including resumption of her lorazepam at 1 mg bid prn agitation and her Seroquel was continued at 50 mg qam and 200 mg qHS. Patient was seen by [facility] (Valerie Villarreal) and deemed to be mentally stable for outpatient follow up and did not require inpatient psychiatric treatment. Patient was discharged home to the care of her family as she was cooperative and taking her meds. However the family brought her back to the ER today when patient became aggressive towards her daughter and when they tried to get her to take the rest of her morning meds. Patient had overslept and was late in taking her medications. She did take her levothyroxine and protonix but when her daughter and her tried to get her to take the rest of her morning medications she became aggressive and tried to charge at them. Her daughter Lluvia called human services who advised the family to bring her to the emergency room. Lluvia indicated that the patient has been tried on various antipsychotic w/ a number of different dosages. Patient previously had been on higher dose of lithium up to 450 mg per day but developed toxicity. She was also on alternating 300 mg w/ 450 mg per day and seemed to do ok. She was intolerant of Depakote d/t severe somnolence. I told Lluvia that I will reach out to YELITZA to Dr. Cardenas to try to have a phone consultation to discuss med adjustment. After discussing her case with her psychiatrist, her Seroquel dose was adjusted. Her lithium dose remained as per her routine. Clonazepam 0.25mg po in the AM and at 2 Pm initiated, as was Ambien nightly. Her sleep-wake cycle improved. She showed no combative/aggressive or obstinate behaviors after these changes. She continued to perseverate on her medications and was anxious. Her appetite was good and her vital signs remained stable. Labs were unremarkable. We found that it was best not to engage her in conversation frequently since it caused her anxiety that appeared to be due to difficulty in forming her thoughts and expressing herself. She will follow up with her PCP in 1-2 weeks. Home Meds and New Rx's Prescriptions: New quetiapine 25 mg Tablet 25 mg PO TID Qty: 90 RF: 0 polyethylene glycol 3350 17 gram Powder In Packet 17 g PO DAILY PRN PRN (Reason: Constipation) Qty: 0 RF: 0 clonazepam 0.5 mg Tablet 0.25 mg PO 0800,1400 Qty: 60 RF: 0 Melatonin 9 mg PO HS Qty: 0 RF: 0 zolpidem 6.25 mg Tablet,Ext Release Multiphase 6.25 mg PO HS Qty: 30 RF: 0 Continued Desenex 2 % powder 1 applic TP DAILY RF: 0 acetaminophen [Tylenol Extra Strength] 500 mg tablet 1,000 mg PO TID PRN (Reason: pain) Qty: 270 RF: 3 Changed quetiapine [Seroquel] 50 mg tablet 100 mg PO QHS Qty: 0 RF: 0 Discontinued lorazepam 1 mg tablet 1 mg PO BID PRNRF: 0 No Action multivitamin 1 EACH tablet 1 ea PO DAILY RF: 0 cholecalciferol (vitamin D3) [Vitamin D3] 2,000 UNIT tablet 2,000 unit PO DAILY RF: 0 aspirin [Aspirin Low-Strength] 81 MG tablet,chewable 81 mg PO DAILY RF: 0 lithium carbonate 300 mg tablet 300 mg PO QHS RF: 0 amlodipine 5 mg tablet 5 mg PO DAILY Qty: 30 RF: 11 carvedilol 12.5 mg tablet 12.5 mg PO BID Qty: 60 RF: 11 folic acid 1 mg tablet 1 mg PO DAILY Qty: 30 RF: 11 levothyroxine 50 mcg tablet 50 mcg PO DAILY Qty: 30 RF: 11 pantoprazole 40 mg tablet,delayed release (DR/EC) 40 mg PO DAILY Qty: 30 RF: 11 quetiapine 50 mg tablet 50 mg PO QAM RF: 0 Discharge Instructions Stand Alone Forms: Nursing Discharge Form Activity:: Activity as Tolerated Equipment/Supplies:: No Equipment Needed Diet:: Normal Diet Discharge Orders Discharge Orders: Discharge Order (Routine); Ordered 12/13/20 Ordered By: Jose Alfredo Mark DS: Summary Time Spent with Patient providing and/or coordinating discharge services: Greater than 30 minutes Status at Discharge Functional status at discharge: independent ambulation Overall status at discharge: patient is back to baseline Mental Status: other (Baseline confusion) Speech and Movement: restless Mood: anxious mood Affect: anxious affect Exam Psych Speech and Movement: restless Mood: anxious mood Affect: anxious affect DS: Data Vitals/I&O Vitals and I&O: Vital Signs Temperature 36.6 C 12/13/20 08:14 Temperature Source Temporal Artery Scan 12/13/20 08:14 Pulse 77 12/13/20 08:14 Pulse Rhythm Regular 12/13/20 10:35 Respiratory Rate 17 12/13/20 08:14 Respiratory Effort Non-Labored 12/13/20 10:35 Respiratory Depth Normal 12/13/20 10:35 Respiratory Pattern Normal 12/13/20 10:35 Blood Pressure 158/85 H 12/13/20 08:14 Blood Pressure Position Sitting 12/07/20 11:14 Pulse Oximetry 97 12/13/20 08:14 Oxygen Delivery Method Room Air 12/13/20 08:14 Oxygen Flow Rate 0 12/13/20 08:14 Pain Level 0 12/13/20 08:14 Comment 12/09/20 15:30 Intake & Output 12/12/20 12/13/20 12/13/20 23:59 11:59 23:59 Intake Total 480 / 960 240 / 240 Balance 480 / 960 240 / 240 Intake: Oral 480 / 960 240 / 240 Other: Urine Color Yellow Yellow Urine Appearance Clear Clear Urine Odor Normal Voiding Methods Toilet Toilet Data Completed and Pending Labs on day of discharge: Labs from last 24 hours 12/13/20 10:20 Sodium 140 Potassium 3.9 Chloride 108 H Carbon Dioxide 23.2 Anion Gap 8.8 BUN 39 H Creatinine 1.4 H Estimated GFR/1.73 m2 36.09 Glucose 130 H Calcium 8.9 PFSH Medical History Bipolar 2 disorder (01/30/17) Per Dr. 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
--- NOTE | 2020-12-13 13:14 | PDOC.HHF2F ---
Home Health Certification Home Health Certification: 1. Encounter Date and Reason I certify that Stacy Orosco was seen by Jose Alfredo Mark MD on 12/13/20 and that I had a [id number] encounter with this patient that meets the physician face to face encounter requirements. 2. Clinical Findings Supporting Skilled Need and Homebound Status I certify that home health services are medically necessary, include either intermittent senior care and/or physical/speech therapy, and that this patient is homebound in that absences from the home require considerable and taxing effort and are infrequent or of short duration, or are attributable to the need to receive medical care. [X] (a) Attached documentation from encounter provides clinical findings supporting skilled need and homebound status (including what assistance patient requires to leave the home). The encounter with the patient was in whole, or in part, for the following medical condition, which is the primary reason for home health care: Agitation, Failure to Thrive Jail:Medication managment. New medications and changes to established medications made during this hospitalization. Middle School Librarian: Assist patient and family with community resources. Physical Therapy: Speech Therapy: Homebound: Pt has significant debility from her bipolar disorder that causes confusion and difficulty making decisions. She is not safe outside of her home environment without another person assisting her. 3. Certification and Authentication I certify that I composed the above information based on my clinical judgement relating to this patient's medical condition and, if applicable, clinical findings communicated to me by the NPP or inpatient physician who performed the Home Health Referral. All further orders will be obtained through ____Patricia Goss (Community Based Physician - PCP)
--- NOTE | 2020-12-13 13:59 | CMDISCH_ITS ---
LACE Index Scoring Tool - Questions: Length of Stay (in days): 4 - 6 Acuity (Admit via E.D.?): Yes Comorbidities: Liver or Renal Disease E.D. Visits: 3 - Answers: Total Score: 15 Risk of Readmission: High Risk Care Management Discharge Reason for Hospitalization: Agitation, failure to thrive Discharge Plan: Stacy will discharge home with new orders for VNA RN and LINUX SERVER ENGINEER through [facility] to support the family in med reconciliation and long term care administrator planning. She will transport via private vehicle with her daughter, Lluvia. Patient/Family Education Needs: Review discharge instructions, discuss Ask Me Three. Services Needed at Discharge: Home Health Care Services (RN/LINUX SERVER ENGINEER)
[2020-12-13] MEDS: Enoxaparin 30 MG/0.3 ML SYR SC (14:04)
[2020-12-13 16:11] VITALS: BP 136/78; PULSE 70; RESP 17; TEMP 36.5; O2SAT 96
== END 2020-12-13 17:50 | disposition home health service (06) | DRG 884 ==
LOC: ER 13:04 → MS 13:44
PROVIDERS: Family Medicine; Admitting Provider Internal Medicine; Emergency Provider Student in an Organized Health Care Education/Training Program; PCP Nurse Practitioner Family; Visit Provider Internal Medicine
DX: R45.1 Restlessness and agitation (principal); F31.81 Bipolar II disorder; I12.9 Hypertensive chronic kidney disease with stage 1 through stage 4 chronic kidney disease, or unspecified chronic kidney disease; K59.00 Constipation, unspecified; R41.0 Disorientation, unspecified; Z20.822 Contact with and (suspected) exposure to COVID-19; F03.90 Unspecified dementia, unspecified severity, without behavioral disturbance, psychotic disturbance, mood disturbance, and anxiety; F28 Other psychotic disorder not due to a substance or known physiological condition; Z86.718 Personal history of other venous thrombosis and embolism; E78.5 Hyperlipidemia, unspecified; E03.9 Hypothyroidism, unspecified; G24.01 Drug induced subacute dyskinesia; K21.9 Gastro-esophageal reflux disease without esophagitis; N18.30 Chronic kidney disease, stage 3 unspecified
CPT/HCPCS: 36415; 80048; 85027; 87635; 99285; 99222; 99231; 99232; 99239; 99284; J1650

== ENCOUNTER 2020-12-15 07:30 | Emergency (ER) | payer MEDICARE, SELFPAY ==
[2020-12-15 07:32] VITALS: BP 158/83; PULSE 92; TEMP 37.4; O2SAT 97
[2020-12-15 07:43] VITALS: RESP 18
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
[2020-12-15 08:14] LABS: Abs Immature Grans 0.01 10^3/uL (0.0-0.06); Absolute Basophil Count 0.02 10^3/uL (0.0-0.2); Absolute Eosinophil Count 0.31 10^3/uL (0.0-0.7); Absolute Lymphocyte Count 1.37 10^3/uL (1.2-3.4); Absolute Monocyte Count 0.54 10^3/uL (0.1-0.8); Absolute Neutrophil Count 3.48 10^3/uL (1.2-6.7); Basophils % 0.3; Eosinophils % 5.4; HCT 37.2 % (36.0-46.0); HGB 11.7 g/dL (11.2-15.7); Immature Grans % 0.2; Lymphocytes % 23.9; MCH 27.6 pg (27.0-33.0); MCHC 31.5 % (32.0-36.0); MCV 87.7 fL (80-95); MPV 9.3 fL (8.0-11.0); Monocytes % 9.4; Neutrophils % 60.8; Nucleated RBC 0 %; Platelet Count 284 10^3/uL (130-400); RBC 4.24 10^6/uL (3.93-5.22); RDW 14.2 % (11.7-14.6); RDW-SD 45.8 fL; WBC 5.73 10^3/uL (4.4-10.8)
[2020-12-15] MEDS: Normal Saline 1,000 ML 150 ML IV (08:25)
[2020-12-15] MEDS: Normal Saline Flush 10 ML SYR IVP (08:25)
[2020-12-15] MEDS: LORazepam 2 MG/ML VIAL (08:26)
[2020-12-15 08:32] LABS: ALT 21 U/L (14-59); AST 20 U/L (15-37); Alkaline Phosphatase 66 U/L (46-116); Anion Gap 11.1 mmol/L (3-11); BUN 31 mg/dL (7-18); Bilirubin, Total 0.6 mg/dL (0.2-1.0); CO2 22.9 mmol/L (21.0-32.0); CREATININE 1.3 mg/dL (0.55-1.02); Calcium 9.7 mg/dL (8.5-10.1); Chloride 110 mmol/L (98-107); Estimated GFR 39.31 (mL/min/1.73m2); Glucose 116 mg/dL (74-106); Magnesium 2.3 mg/dL (1.8-2.4); Potassium 3.6 mmol/L (3.5-5.1); Sodium 144 mmol/L (136-145); Total Protein 8.1 g/dL (6.4-8.2)
[2020-12-15] MEDS: QUEtiapine 25 MG TAB 50 MG PO (08:44)
[2020-12-15 08:48] LABS: Lithium 0.8 mmol/l (0.6-1.2)
--- NOTE | 2020-12-15 11:00 | PDOC.MHCN_ITS ---
Date of service: 12/15/20 Time of Service: 11:00 Mental Health Crisis Note Presenting Issue How did you arrive at the ED and why did you come: Pt arrived via [facility] today at the request of her daughter. She is in an agitated state and needs support. Precipitating Factors Pt denied SI and HI. She is showing no signs of delusions at this time. Disposition BEHAVIOR: Pt is oriented to time and place. She understands that she is having increased agitation and aggressiveness. She does not feel that anything is going to work and yet knows she needs help. EYE CONTACT: Pt makes good eye contact. MOOD: Pt's mood is agitated and confused about why she is doing what she is doing but is fully oriented to person, place and time. She is also anxious. AFFECT: Her affect appeared anxious. APPETITE: Pt reported her appetite is fine until last night and her daughter made her eat. SLEEP(trouble falling/staying asleep: Pt reported her sleep has been fine except for last night. Pt's daughter reported that she left at 10 pm last night and that the Pt was still up and that the Pt's said she had gotten up several times after the daughter left. Plan Pt is decompensating in her mood and ability to remain independent and safe. Sh e knows something is wrong however, she is not willing to be admitted to [facility] until placement is found and there is not enough to write an EE at this time. Therefore she will need to be discharged to home. A huddle was had with care management, nursing supervisor knitting and Dr. Messina. Both Dr. Messina and I attempted to get the Pt admitted to [facility] in hopes to get early intervention and transfer possibly from [facility] however, they are not accepting referrals at this time. Signature Clinician's Name/Title: Valerie Villarreal MS, [facility] Emergency Services Clinician, [facility]
[2020-12-15 11:06] LABS: Bilirubin Negative (Negative); Blood Negative (Negative); Clarity Clear (Clear); Glucose Negative (Negative); Ketones Negative (Negative); Leukocyte Esterase Negative (Negative); Nitrite Negative (Negative); Specific Gravity 1.015 (1.005-1.025); Urobilinogen 0.2 EU/dL (Up TO 0.2)
--- NOTE | 2020-12-15 11:28 | NUR.NOTE ---
customer care agent is with pt at this time Nursing Note:
[2020-12-15 11:36] LABS: Source Nasal/Nares
[2020-12-15 12:27] LABS: COVID-19 PCR Negative (Negative)
--- NOTE | 2020-12-15 17:00 | CMPROGNOTE_ITS ---
- If Service Date Differs Date of service: 12/15/20 Time of Service: 17:00 Care Management Progress Note CM rec'd page from ED MD Dr. Messina to review Stacy's needs. CM reviewed past admission interventions, safety plan and barriers to stability in home setting including familial relations. CM notified [employer] Alejandra of Stacy's presentation, Alejandra reported speaking with Psychiatry who recommended ECT, which Stacy is scheduled for soon. CM met with Valerie [facility] and then with Lluvia and Stacy to report that [facility] had exhausted resources stabilizing Stacy and that she experienced stability while inpatient with med changes coordinated by Dr. Cardenas and Dr. Ferguson. Lluvia reported that Dr. Cardenas had again adjusted medications yesterday including increasing seroquel and librium and removing ambien, which Lluvia reports Stacy has not had since her discharge on Sunday. [facility] currently has no inpatient beds at this time, and Stacy reported CM reviewed recommendation that Stacy remain in [facility] ED until she could transfer to appropriate facility that could meet her current needs. Valerie reported that due to Stacy not being willing to seek voluntary treatment, she could not be held by at this time; please refer to her note for further information.
--- NOTE | 2021-01-04 07:59 | NUR.NOTE ---
Nursing Note: Patient's IV fluids ended at 11 am, she got a total of 375 NS via IV and 625 mLs were wasted.
== END 2020-12-15 12:32 | disposition home or self-care (01) ==
PROVIDERS: Emergency Provider Emergency Medicine; PCP Nurse Practitioner Family
DX: F31.81 Bipolar II disorder (principal); Z20.822 Contact with and (suspected) exposure to COVID-19
CPT/HCPCS: 36415; 80053; 87635; 96361; 96374; 99284; 80178; 81003; 83735; 85025; J2060

== ENCOUNTER 2021-02-09 02:19 | Outpatient (CLI) | payer MEDICARE, SELFPAY ==
[2021-02-10 18:57] LABS: COVID-19 RT-PCR UVMMC Result Negative (Negative)
== END 2021-02-09 02:20 | disposition home or self-care (01) ==
LOC: LBO 02:19
PROVIDERS: PCP Nurse Practitioner Family; Visit Provider Nurse Practitioner Family
DX: Z20.822 Contact with and (suspected) exposure to COVID-19 (principal)
CPT/HCPCS: U0003; U0005

== ENCOUNTER 2021-03-30 03:19 | Outpatient (CLI) | payer MEDICARE, SELFPAY ==
[2021-03-30 07:52] LABS: Abs Immature Grans 0.01 10^3/uL (0.0-0.06); Absolute Basophil Count 0.02 10^3/uL (0.0-0.2); Absolute Eosinophil Count 0.27 10^3/uL (0.0-0.7); Absolute Lymphocyte Count 1.53 10^3/uL (1.2-3.4); Absolute Monocyte Count 0.38 10^3/uL (0.1-0.8); Absolute Neutrophil Count 2.89 10^3/uL (1.2-6.7); Basophils % 0.4; Eosinophils % 5.3; HCT 36.3 % (36.0-46.0); HGB 10.9 g/dL (11.2-15.7); Immature Grans % 0.2; MCH 26.4 pg (27.0-33.0); MCV 87.9 fL (80-95); MPV 8.9 fL (8.0-11.0); Monocytes % 7.5; Neutrophils % 56.6; Nucleated RBC 0 %; Platelet Count 368 10^3/uL (130-400); RBC 4.13 10^6/uL (3.93-5.22); RDW 14.8 % (11.7-14.6); RDW-SD 47.4 fL
[2021-03-30 08:27] LABS: Lithium 0.9 mmol/l (0.6-1.2)
[2021-03-30 08:38] LABS: ALT 17 U/L (14-59); AST 11 U/L (15-37); Albumin 3.8 g/dL (3.4-5.0); Alkaline Phosphatase 62 U/L (46-116); Anion Gap 13.6 mmol/L (3-11); BUN 24 mg/dL (7-18); Bilirubin, Total 0.3 mg/dL (0.2-1.0); CO2 21.4 mmol/L (21.0-32.0); CREATININE 1.5 mg/dL (0.55-1.02); Calcium 9.2 mg/dL (8.5-10.1); Chloride 109 mmol/L (98-107); Estimated GFR 33.33 (mL/min/1.73m2); Glucose 109 mg/dL (74-106); Potassium 4.9 mmol/L (3.5-5.1); Sodium 144 mmol/L (136-145); TSH 1.82 uIU/mL (0.36-3.74); Total Protein 7.6 g/dL (6.4-8.2)
[2021-03-30 08:54] LABS: FREE T4 0.87 ng/dL (0.76-1.46)
[2021-03-30 16:50] LABS: T3,Free 2.7 pg/mL (2.8-5.3)
== END 2021-03-30 03:20 | disposition home or self-care (01) ==
LOC: LBO 03:19
PROVIDERS: PCP Nurse Practitioner Family; Visit Provider Psychiatry & Neurology Psychiatry
DX: F31.4 Bipolar disorder, current episode depressed, severe, without psychotic features (principal)
CPT/HCPCS: 36415; 80053; 80178; 84439; 84443; 84481; 85025

== ENCOUNTER 2021-05-14 05:12 | Emergency (ER) | payer MEDICARE, SELFPAY ==
--- NOTE | 2021-05-14 05:20 | W.ED.GENAD ---
Discharge Plan Disposition Patient Disposition: HOME Condition: Stable Discharge Details Clinical Impression: Anxiety Primary Care Provider: Patricia Goss ED Provider: Marlo Vang Home Meds and New Rx's Prescriptions: Continued amlodipine 10 mg tablet 10 mg PO DAILY Qty: 90 RF: 3 multivitamin 1 EACH tablet 1 ea PO DAILY RF: 0 cholecalciferol (vitamin D3) [Vitamin D3] 2,000 UNIT tablet 2,000 unit PO DAILY RF: 0 aspirin [Aspirin Low-Strength] 81 MG tablet,chewable 81 mg PO DAILY RF: 0 Desenex 2 % powder 1 applic TP DAILY RF: 0 acetaminophen [Tylenol Extra Strength] 500 mg tablet 1,000 mg PO TID PRN (Reason: pain) Qty: 270 RF: 3 carvedilol 12.5 mg tablet 12.5 mg PO BID Qty: 60 RF: 11 folic acid 1 mg tablet 1 mg PO DAILY Qty: 30 RF: 11 levothyroxine 50 mcg tablet 50 mcg PO DAILY Qty: 30 RF: 11 pantoprazole 40 mg tablet,delayed release (DR/EC) 40 mg PO DAILY Qty: 30 RF: 11 polyethylene glycol 3350 17 gram Powder In Packet 17 g PO DAILY PRN PRN (Reason: Constipation) Qty: 0 RF: 0 lithium carbonate 450 mg Tablet Extended Release 450 mg PO HS RF: 0 lorazepam 1 mg tablet 1 mg PO BID PRN PRNRF: 0 melatonin 5 mg capsule 5 mg PO HS RF: 0 hydroxyzine HCl 25 mg Tablet 25 mg PO RF: 0 quetiapine [Seroquel] 50 mg tablet 150 mg PO QHS RF: 0 Discharge Instructions Instructions: Anxiety (ED) Additional Instructions: Please contact your primary care physician to arrange follow-up. Return to the ER immediately for any worsening or new concerning symptoms. Referrals: Patricia Goss NP [Primary Care Provider] - Discharge Data Discharge Date/Time-TO BE ENTERED AT DEPARTURE: 05/14/21 09:08 Medical Decision Making <Tawanda Lee MD - Last Filed: 05/17/21 20:05> While this may be a chronic condition for patient, daughter brought her in for evaluation though cannot definitively tell me this is an acute change. That being said patient is agitated, incoherent at times with thought process, pressured, and would benefit from lab check, urinalysis, head CT. We will also offer Ativan to help calm her down. Patient definitely more calm after Ativan. Laboratory studies are baseline and unchanged. Urine is negative for infection. [place] level is therapeutic. CT head has a lot of motion artifact. There was questionable worsening hypodensity in the left frontal lobe. Radiology recommends repeat scan with the patient being still. Will likely need more Ativan or something to help with some sedation. Will sign over to oncoming physician Dr. Vang. Daughter will take the patient home and follow-up with Dr. Cardenas from [facility] on Sunday if CT scan shows no new changes. Lab Data Lab results reviewed: Yes I reviewed the patient's lab results. <Marlo Vang MD - Last Filed: 05/14/21 09:07> CT of the head was interpreted by radiology: No evidence of hypoattenuation frontal lobe as questioned on previous examination. No evidence of acute intracranial process. Chronic small vessel ischemic changes are present. A medical screening exam was performed today and patient is stable. Plan for discharge with outpatient follow-up on Sunday. Plan discussed with patient and her daughter who are in agreement. HPI <Tawanda Lee MD - Last Filed: 05/17/21 20:05> General Mode of arrival: ambulatory. Date/Time Provider Initiated Documentation: 05/14/21 05:14. Limitations to Documentation: no limitations. Information obtained by: patient, family and RN notes reviewed. HPI Narrative: Patient brought in by her daughter for evaluation of agitation. Per the daughter patient has not been sleeping and has been up all night last night. Patient has history of bipolar disorder. She receives ECT once every 2 weeks. She is also on medications including lithium. Per the daughter patient is more agitated and aggressive at home. She becomes compulsive regarding morning medications. She does not sleep. I am unable to ascertain from the daughter whether this is a significant change or not. It does not sound much different than the patient baseline, however, and daughter of patient at this point are overwhelmed. Patient herself does not want to be here. She is difficult to understand at times, but this also does not sound new. Patient offers no complaint other than she does not want to be here. Patient is clearly anxious and agitated. Related Data Home Medications Medication Instructions Recorded Confirmed cholecalciferol (vitamin D3) 2,000 unit PO DAILY 09/18/12 05/14/21 [Vitamin D3] multivitamin 1 ea PO DAILY 09/18/12 05/14/21 aspirin [Aspirin Low-Strength] 81 mg PO DAILY tab.chew 12/11/14 05/14/21 miconazole nitrate 2 % topical 1 applic TP DAILY 11/27/19 05/14/21 powder acetaminophen 500 mg tablet 1,000 mg PO TID PRN #270 tab 02/20/20 05/14/21 polyethylene glycol 3350 17 g PO DAILY PRN PRN #0 ea 12/13/20 01/26/21 quetiapine [Seroquel] 150 mg PO QHS 12/15/20 05/14/21 amlodipine 10 mg tablet 10 mg PO DAILY #90 tab-cap 01/26/21 05/14/21 carvedilol 12.5 mg tablet 12.5 mg PO BID #60 tab 02/09/21 05/14/21 folic acid 1 mg tablet 1 mg PO DAILY #30 tab 02/09/21 05/14/21 levothyroxine 50 mcg tablet 50 mcg PO DAILY #30 tab 02/09/21 05/14/21 pantoprazole 40 mg tablet,delayed 40 mg PO DAILY #30 tab 02/09/21 05/14/21 release hydroxyzine HCl 25 mg PO 05/14/21 lithium carbonate 450 mg PO HS 05/14/21 05/14/21 lorazepam 1 mg PO BID PRN PRN 05/14/21 05/14/21 melatonin 5 mg PO HS 05/14/21 05/14/21 Previous Rx's Medication Instructions Recorded acetaminophen 500 mg tablet 1,000 mg PO TID PRN #270 tab 02/20/20 polyethylene glycol 3350 17 g PO DAILY PRN PRN #0 ea 12/13/20 amlodipine 10 mg tablet 10 mg PO DAILY #90 tab-cap 01/26/21 carvedilol 12.5 mg tablet 12.5 mg PO BID #60 tab 02/09/21 folic acid 1 mg tablet 1 mg PO DAILY #30 tab 02/09/21 levothyroxine 50 mcg tablet 50 mcg PO DAILY #30 tab 02/09/21 pantoprazole 40 mg tablet,delayed 40 mg PO DAILY #30 tab 02/09/21 release Allergies Allergy/AdvReac Type Severity Reaction Status Date / Time fluoxetine Allergy Mild Verified 05/14/21 05:34 olanzapine Allergy Mild Verified 05/14/21 05:34 trazodone Allergy Mild Verified 05/14/21 05:34 haloperidol AdvReac Severe Contraindic Verified 05/14/21 05:34 ated Phenothiazines AdvReac Severe DYSTONIA Verified 05/14/21 05:34 General GRANT: 3 Review of Systems <Tawanda Lee MD - Last Filed: 05/17/21 20:05> Unobtainable due to mental condition [facility] <Tawanda Lee MD - Last Filed: 05/17/21 20:05> All Active Problems (Updated 05/14/21 @ 08:50 by Marlo Vang MD) Anxiety (Chronic) Sensorineural hearing loss, bilateral (Acute) Knee pain, right (Acute) Hip pain, right (Acute) Anemia (Chronic) Acute kidney injury superimposed on chronic kidney disease (Acute) Encephalopathy acute (Acute) Multiple fractures of ribs (Acute 12/09/13) Hearing loss (Chronic) Chronic kidney disease, stage III (moderate) (Chronic 09/26/11) 08/25/2016 [facility] nephro consult: JOSE-I or ARB not recommended for this pt DJD (degenerative joint disease), lumbar (Acute 12/26/13) x-ray 12/2013 DVT (deep venous thrombosis) (Acute 12/08/13) 09/2013 L at OSH, (confirmed 11/2013 [facility] pt off therapy) RX Xarelto Depressive disorder (Acute 11/11/12) Dr. Esther Heath, Psychiatrist Multiple hospitalizations Psych dx's: unipolar vs. 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 With Catatonia. S/P multiple psychiatric admissions. On [place], Lorazepam, Nortriptyline and Quetiapine as an out-patient, unclear doses. Hypertension (Chronic) Hyperlipidemia (Chronic) Hypothyroidism (Chronic) Constipation (Chronic) Medical History Bipolar 2 disorder (01/30/17) Per Dr. 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 Surgical History S/P ORIF (open reduction internal fixation) fracture Family History Brother Heart disease Stroke Brother Heart disease Other Hypertension Social History Smoking/Tobacco Use Status: Never Smoking risk assessment performed?: Yes Alcohol Intake: former Drug use: Never Substance use type: does not use Number of Children: 2 Pets and animals: Yes Pets and animals: cat(s) Current gender identity: female What type of physical activity do you participate in: walking Frequency: daily Seatbelt use: always Do you feel safe at home: Yes Do you feel safe in your relationship?: Yes Exam <Tawanda Lee MD - Last Filed: 05/17/21 20:05> Narrative Exam Narrative: Const: Anxious, agitated elderly female who offers no physical complaint. HEENT: NC/AT. Normal facial exam. Neck: Supple. Trachea midline. Lungs: Normal respiratory effort. Lungs are clear. Cor: RRR without murmur/gallop. Good radial pulses. GI: Soft. NT/ND. No guarding or rebound. Neuro: Awake and alert. Agitated. Speech difficult to understand at times due to mumbling/slurring and at other times due to non-coherent structure. Cranial nerves II - XII grossly intact. No gross motor or sensory deficit. Ext: No C/C/E. Skin: Warm and dry without rash. Psych: Agitated. Pressured. Abnormal thought process. Sign Out <Tawanda Lee MD - Last Filed: 05/17/21 20:05> Sign Out Data: Sign Out Comment: pending repeat CT head Last updated by Tawanda Lee MD at 05/14/21 07:51
[2021-05-14 05:24] VITALS: BP 163/108; PULSE 106; RESP 20; TEMP 36.7; O2SAT 98
--- NOTE | 2021-05-14 05:45 | DI.CT_ITS ---
Exam(s) CT HEAD WO EXAM: CT HEAD WO CLINICAL HISTORY: AMS. TECHNIQUE: Imaging Protocol: Axial computed tomography images with coronal and sagittal reformatted images were created and reviewed COMPARISON: CT CT HEAD WO from 07/13/2020 FINDINGS: Exam is limited by patient motion. Ventricles are normal in size. Areas of hemorrhage or infarct ca nnot be excluded. No grossly displaced skull fracture. Sinuses and mastoid air cells are grossly cl ear. IMPRESSION: Severely limited exam. No gross evidence of an acute intracranial process. RADIATION DOSE DELIVERED: 1,413.6mGy.cm Total DLP DATA REPOSITORY: All CT scans at this facility are submitted to the National Radiology Data Registry (NRDR) Dose Index Registry (DIR) with the [employer] (ACR). RADIATION OPTIMIZATION: All CT scans at this facility use at least one of these dose optimization te chniques: automated exposure control; mA and/or kV adjustment per patient size (includes targeted exa ms where dose is matched to clinical indication); or iterative reconstruction.
[2021-05-14 05:56] LABS: Bilirubin Negative (Negative); Blood Trace-intact (Negative); Clarity Clear (Clear); Glucose Negative (Negative); Ketones Negative (Negative); Leukocyte Esterase Negative (Negative); Nitrite Negative (Negative); Urobilinogen 0.2 EU/dL (Up TO 0.2)
[2021-05-14 06:01] LABS: Bacteria Negative HPF (Negative); C & S Indicated? No; Casts Negative LPF (Negative); Crystals Negative HPF (Negative); Epithelial Cells Negative HPF (Negative); Mucus Negative (Negative); RBC 0-2 HPF (0-2); WBC Negative HPF (0-5)
[2021-05-14 06:05] LABS: HCT 35.6 % (36.0-46.0); HGB 10.7 g/dL (11.2-15.7); MCHC 30.1 % (32.0-36.0); MCV 86.6 fL (80-95); MPV 8.6 fL (8.0-11.0); Platelet Count 361 10^3/uL (130-400); RBC 4.11 10^6/uL (3.93-5.22); RDW 15.2 % (11.7-14.6); RDW-SD 48.3 fL; WBC 8.78 10^3/uL (4.4-10.8)
[2021-05-14] MEDS: LORazepam 1 MG TAB PO ×2 (06:05→08:08)
[2021-05-14 06:17] LABS: Lithium 0.9 mmol/l (0.6-1.2)
[2021-05-14 06:31] LABS: ALT 16 U/L (14-59); AST 13 U/L (15-37); Albumin 4.1 g/dL (3.4-5.0); Alkaline Phosphatase 74 U/L (46-116); Anion Gap 13.3 mmol/L (3-11); BUN 22 mg/dL (7-18); Bilirubin, Total 0.3 mg/dL (0.2-1.0); CO2 21.7 mmol/L (21.0-32.0); CREATININE 1.4 mg/dL (0.55-1.02); Calcium 9.2 mg/dL (8.5-10.1); Chloride 111 mmol/L (98-107); Glucose 118 mg/dL (74-106); Potassium 4.1 mmol/L (3.5-5.1); Sodium 146 mmol/L (136-145); TSH (W/Ref FT4) 3.79 uIU/mL (0.36-3.74); Total Protein 8.2 g/dL (6.4-8.2)
[2021-05-14 06:48] LABS: FREE T4 0.87 ng/dL (0.76-1.46)
--- NOTE | 2021-05-14 07:30 | DI.VRAD_ITS ---
Addendum created by Claudio Yee DO on 05/14/2021 7:38:56 AM EST: THIS REPORT CONTAINS FINDINGS THAT MAY BE CRITICAL TO PATIENT CARE. The findings were verbally communicated via telephone conference with AMARI LEUNG at 7:38 AM EST on 05/14/2021. The findings were acknowledged and understood. Initial report created on 05/14/2021 7:30:31 AM EST: PROCEDURE INFORMATION: Exam: CT Head Without Contrast Exam date and time: 05/14/2021 5:54 AM Age: 81 years old Clinical indication: Other: AMS TECHNIQUE: Imaging protocol: Computed tomography of the head without contrast. COMPARISON: CT HEAD WO 07/13/2020 12:14 AM FINDINGS: Brain: Limited evaluation due to patient motion. No large intracranial hemorrhage appreciated. Evaluation for acute or subacute ischemic changes is markedly limited however there is an area hypoattenuation in the left frontal lobe that may represent an acute or subacute ischemic event. This is an area hypodensity seen on prior exam, however on this study this appears to be somewhat more prominent than on prior exam. Cerebral ventricles: No ventriculomegaly. Paranasal sinuses: Not well evaluated due to motion but grossly clear. Mastoid air cells: Visualized mastoid air cells are well aerated. Bones/joints: Limited evaluation. Soft tissues: Limited evaluation. Other findings: Markedly limited examination secondary to patient motion. IMPRESSION: Markedly limited evaluation secondary to patient motion, however there is an area hypodensity in the left frontal lobe that appears to be more prominent than on previous exam and may represent an acute or subacute ischemic event. Dictated and Authenticated by: Claudio Yee MD. Ordering:CAROLINA Neff MD
--- NOTE | 2021-05-14 08:00 | DI.CT_ITS ---
Exam(s) CT HEAD WO EXAM: CT HEAD WO CLINICAL HISTORY: altered, prior with artifact. TECHNIQUE: Imaging Protocol: Axial computed tomography images with coronal and sagittal reformatted images were created and reviewed COMPARISON: CT CT HEAD WO from 05/14/2021 FINDINGS: There is no significant motion artifact on the current exam Ventricles and Extra axial spaces: Normal in size and morphology for the patient's age. Hemorrhage: None. Cerebral parenchyma: Mild white matter changes of small vessel disease. No significant atrophy. Midline shift: None. Brainstem/Cerebellum: Normal. Calvarium: Normal. Visualized Paranasal sinuses/Mastoids: Clear. Soft Tissues: Unremarkable. IMPRESSION: No acute intracranial process. RADIATION DOSE DELIVERED: 645.8mGy.cm Total DLP DATA REPOSITORY: All CT scans at this facility are submitted to the National Radiology Data Registry (NRDR) Dose Index Registry (DIR) with the [employer] (ACR). RADIATION OPTIMIZATION: All CT scans at this facility use at least one of these dose optimization te chniques: automated exposure control; mA and/or kV adjustment per patient size (includes targeted exa ms where dose is matched to clinical indication); or iterative reconstruction.
--- NOTE | 2021-05-14 08:47 | DI.VRAD_ITS ---
PROCEDURE INFORMATION: Exam: CT Head Without Contrast Exam date and time: 05/14/2021 8:05 AM Age: 81 years old Clinical indication: Altered mental status/memory loss TECHNIQUE: Imaging protocol: Computed tomography of the head without contrast. COMPARISON: CT HEAD WO 05/14/2021 6:13 AM FINDINGS: Brain: The question hypodensity in the left frontal lobe seen on previous examination is not present on this exam. There are scattered periventricular areas white matter hypoattenuation consistent with chronic small vessel ischemic change. No acute intracranial hemorrhage. Cerebral ventricles: No ventriculomegaly. Paranasal sinuses: Visualized sinuses are unremarkable. No fluid levels. Mastoid air cells: Visualized mastoid air cells are well aerated. Bones/joints: Unremarkable. No acute fracture. Soft tissues: Unremarkable. IMPRESSION: 1. No evidence of hypo attenuation in the left frontal lobe as questioned on previous examination. No evidence of an acute intracranial process. 2. Chronic small vessel ischemic changes are present. Dictated and Authenticated by: Claudio Yee MD. Ordering:MATHEW Sellers MD
== END 2021-05-14 09:08 | disposition home or self-care (01) ==
PROVIDERS: Emergency Medicine; Emergency Provider Student in an Organized Health Care Education/Training Program; PCP Nurse Practitioner Family
DX: F41.9 Anxiety disorder, unspecified (principal); R41.82 Altered mental status, unspecified
CPT/HCPCS: 36415; 80053; 85027; 99284; 70450; 80178; 81003; 81015; 84439; 84443; 99283

== ENCOUNTER 2021-08-16 02:43 | Outpatient (CLI) | payer MEDICARE, SELFPAY ==
[2021-08-16 09:03] LABS: Lithium 0.7 mmol/l (0.6-1.2)
== END 2021-08-16 02:44 | disposition home or self-care (01) ==
LOC: LBO 02:43
PROVIDERS: PCP Nurse Practitioner Family; Visit Provider Psychiatry & Neurology Psychiatry
DX: F31.4 Bipolar disorder, current episode depressed, severe, without psychotic features (principal)
CPT/HCPCS: 36415; 80178

== ENCOUNTER 2021-09-13 01:30 | Outpatient (RCR) | payer MEDICARE, SELFPAY ==
[2021-09-13] MEDS: Normal Saline Flush 10 ML SYR IVP (09:25)
[2021-09-13] MEDS: Heparin 500 UNITS/5 ML SYRINGE IV (09:25)
== END 2021-09-24 23:59 | disposition home or self-care (01) ==
LOC: INF 01:30
PROVIDERS: PCP Nurse Practitioner Family; Visit Provider Nurse Practitioner Family
DX: Z45.2 Encounter for adjustment and management of vascular access device (principal)
CPT/HCPCS: 96523

== ENCOUNTER 2021-10-18 02:26 | Outpatient (RCR) | payer MEDICARE, SELFPAY ==
[2021-10-18] MEDS: Normal Saline Flush 10 ML SYR IVP (10:02)
[2021-10-18] MEDS: Heparin 500 UNITS/5 ML SYRINGE IV (10:03)
== END 2021-10-25 23:59 | disposition home or self-care (01) ==
LOC: INF 02:26
PROVIDERS: PCP Nurse Practitioner Family; Visit Provider Nurse Practitioner Family
DX: Z45.2 Encounter for adjustment and management of vascular access device (principal)
CPT/HCPCS: 96523

== ENCOUNTER 2021-11-19 04:17 | Inpatient (IN) | payer MEDICARE, SELFPAY ==
[2021-11-19] VITALS (150 sets, daily range): BP systolic 78–151; BP diastolic 30–100; PULSE 72–114; RESP 5–37; TEMP 33.1–37.8; O2SAT 85–100
--- NOTE | 2021-11-19 04:30 | RT.EKG_ITS ---
APPROVED REPORT Exam: Resting ECG Reason for Exam: altered mental status Patient Location: E HR:90 bpm ECG Measurements Heart Rate 90 AXIS NC 156 P 44 QRSd 94 QRS 20 QT 398 T 14 QTc 487 Conclusion Sinus rhythm...normal P axis, V-rate 60- 99
--- NOTE | 2021-11-19 04:45 | DI.CT_ITS ---
Exam(s) CT CHEST/ABD/PEL WO EXAM: CT CHEST/ABD/PEL WO CLINICAL HISTORY: fall, pain on right chest and abdomen. TECHNIQUE: Imaging Protocol: Axial computed tomography images with coronal and sagittal reformatted images were created and reviewed CONTRAST MATERIAL: Intravenous: none Oral: None COMPARISON: CT CT PELVIC WO from 07/13/2020 FINDINGS: CHEST: Images degraded by respiratory motion artifact. LUNGS: Prominent area of infiltrate involving the left upper lobe and lingular segment. Also signifi cant infiltrate in the left lower lobe. No associated pleural effusion on either side. No infiltrat es in the right lung.. MEDIASTINUM: No obvious hilar nor mediastinal adenopathy. The esophagus is dilated and there is a lar ge retrocardiac hiatal hernia measuring 10 cm wide by 5.5 cm AP. CARDIAC: Mild cardiomegaly. No pericardial effusion. Mitral valve calcification notedevaluation of the ascending thoracic aorta is difficult because of the amount of motion artifact OSSEOUS: No significant osseous lesions.. ABDOMEN: There is no ascites. LIVER: There are no obvious focal hepatic lesions evident of this noninfused study. GALLBLADDER/BILIARY: Gallstones noted. Gallbladder wall is difficult to evaluate accurately because of the amount of motion artifact here. CBD is not dilated. PANCREAS: No evidence of obvious pancreatic mass nor dilatation of the pancreatic duct. SPLEEN: Spleen is not enlarged. No obvious intrasplenic lesions. ADRENALS: There are no significant adrenal masses. KIDNEYS: No calculi nor hydronephrosis. No obvious solid renal masses. No cysts evident. ABDOMINAL AORTA: Abdominal aorta is not enlarged. LYMPH NODES: There is no retroperitoneal nor para-aortic adenopathy. ABDOMINAL WALL/GI: No evidence of significant anterior abdominal wall nor inguinal hernia. No evidence of bowel obstruction. PELVIS: LYMPH NODES: There is no intrapelvic nor inguinal adenopathy. GI: No evidence of appendicitis.No evidence of sigmoid diverticulitis. URINARY BLADDER: No calculi nor obvious masses evident REPRODUCTIVE: Age appropriate OSSEOUS: No significant osseous lesions. Mild compression fracture at superior endplate of L1, age indeterminate.. Also T10 and T8 IMPRESSION: 1. Large area of infiltrate in the left upper lobe and left lower lobe. No pleural effusions. No pn eumothorax. Right lung is clear. 2. Large hiatal hernia evident, as described above 3. Cholelithiasis. L1 compression fracture, most probably not acute. RADIATION DOSE DELIVERED: 1,081.72mGy.cm Total DLP DATA REPOSITORY: All CT scans at this facility are submitted to the National Radiology Data Registry (NRDR) Dose Index Registry (DIR) with the [employer] (ACR). RADIATION OPTIMIZATION: All CT scans at this facility use at least one of these dose optimization te chniques: automated exposure control; mA and/or kV adjustment per patient size (includes targeted exa ms where dose is matched to clinical indication); or iterative reconstruction.
--- NOTE | 2021-11-19 04:45 | DI.CT_ITS ---
Exam(s) CT HEAD CERVICAL SPINE WO EXAM: CT HEAD CERVICAL SPINE WO CLINICAL HISTORY: fall, altered mental status. TECHNIQUE: Imaging Protocol: Axial computed tomography images with coronal and sagittal reformatted images were created and reviewed COMPARISON: CT CT HEAD WO from 05/14/2021 FINDINGS: BRAIN: There are no skull fractures nor fluid in the visualized paranasal sinuses. There is no evidence of intracranial hemorrhage, mass effect, or shift of midline structures. There are no extra-axial fluid collections. The ventricles are not enlarged or shifted and there is no blo od within the ventricular system nor within the basal cisterns. The amount of periventricular hypodensity is basically unchanged from 05/24/2021 consistent chronic s mall vessel disease. No acute infarct. CERVICAL SPINE: There is no evidence of fracture nor listhesis. No significant prevertebral soft tissue swelling. There is no significant facet joint malalignment. In left side of C 4 vertebral body there is asymmetric prominence of the left foramen transverse area at this level. This of questionable significance. No lytic lesion evident at this level. IMPRESSION: No acute intracranial findings on this noninfused CT scan of the brain. No evidence of cervical spine fracture, malalignment, nor acute compromise of the cervical spinal can al. Asymmetric increased size of the left foramen transverse area at C4 level noted. Smooth erosion at t his level. If clinically indicated further study with MRI or CT angiography can be performed. RADIATION DOSE DELIVERED: 1,135.83mGy.cm Total DLP DATA REPOSITORY: All CT scans at this facility are submitted to the National Radiology Data Registry (NRDR) Dose Index Registry (DIR) with the [employer] (ACR). RADIATION OPTIMIZATION: All CT scans at this facility use at least one of these dose optimization te chniques: automated exposure control; mA and/or kV adjustment per patient size (includes targeted exa ms where dose is matched to clinical indication); or iterative reconstruction.
[2021-11-19] MEDS: Normal Saline 1,000 ML 1000 ML IV (04:50)
--- NOTE | 2021-11-19 04:51 | ED.GENADUL_ITS ---
Discharge Plan Disposition Patient Disposition: [facility] INPATIENT Condition: Critical Discharge Details Clinical Impression: Anemia, Fall, Altered mental status, Pneumonia Primary Care Provider: Patricia Goss ED Provider: Reji Hobbs [place] Meds and New Rx's Prescriptions: No Action ondansetron 4 mg tablet,disintegrating 4 mg PO Q8H PRN amlodipine 10 mg tablet 10 mg PO DAILY Qty: 90 3RF multivitamin 1 EACH tablet 1 ea PO DAILY cholecalciferol (vitamin D3) [Vitamin D3] 2,000 UNIT tablet 2,000 unit PO DAILY aspirin [Aspirin Low-Strength] 81 MG tablet,chewable 81 mg PO DAILY Desenex 2 % powder 1 applic TP DAILY Rx Instructions: to erythematous areas of groin per discharge [facility] 11/25/19 [facility] acetaminophen [Tylenol Extra Strength] 500 mg tablet 1,000 mg PO TID PRN (Reason: pain) Qty: 270 3RF carvedilol 12.5 mg tablet 12.5 mg PO BID Qty: 60 11RF folic acid 1 mg tablet 1 mg PO DAILY Qty: 30 11RF levothyroxine 50 mcg tablet 50 mcg PO DAILY Qty: 30 11RF Rx Instructions: DX:THYROID REPLACEMENT pantoprazole 40 mg tablet,delayed release (DR/EC) 40 mg PO DAILY Qty: 30 11RF Rx Instructions: Take 40mg in the AM on an empty stomach, at least 20-30 minutes before first meal. polyethylene glycol 3350 17 gram Powder In Packet 17 g PO DAILY PRN PRN (Reason: Constipation) Qty: 0 0RF lithium carbonate 450 mg Tablet Extended Release 450 mg PO HS lorazepam 1 mg tablet 1 mg PO BID PRN PRN Label Comments: TAKE ONE TABLET BY MOUTH TWICE A DAY NEEDED melatonin 5 mg capsule 5 mg PO HS Label Comments: Take 1 capsule by mouth at bedtime hydroxyzine HCl 25 mg Tablet 25 mg PO Rx Instructions: Daughter thinks she gets this prior to her ECT treatments. quetiapine [Seroquel] 50 mg tablet 150 mg PO QHS Medical Decision Making 81 yo female with hx of bipolar on lithium, ckd, htn, hld, who comes in with ems with AMS. The daughter provides most of this history and states for the last few days has been agitated and altered. Tonight she was asleep with her significant other and she got up to use the rest room and he heard her fall. EMS was called and on their arrival she was on the ground not able to provide any history, was lethargic so was brought here. On arrival she is noted to be hypoxic in the mid to high 80's and has a systolic BP of 90. She appears lethargic but will open her eyes to verbal stimuli and knows her name and that she is in the hospital but is unable to provide answers to any other questions. She has a very mild right facial assymetry that her daughter is unsure is new or not. She is pale in appearance. PERRL, no signs of trauma to the head, does have tenderness to the right side of her abdomen and right lateral chest with no crepitus. Diminished breath sounds at the bases, no wheezing. When I try and test drift her legs immediately hit the bed and her arms she slowly raises back down to the bed. Unclear etiology of her symptoms, given the fall and tenderness will obtain ct chest/abd/pelvis and also ct head and c spine. Her last known normal was days ago so not a lytic candidate if this is a cva. Will check cbc, cmp, lithium level and reassess. cbc with hemoglobin of 5.8, I did a rectal exam with daughter and nurse in the room and daughter gave consent for the patient, only able to get a small less than a pea size amout of stool that was brown and guiac negative. other labs pending, daughter consents for the patient to get blood so [address] shows consolidation on the left consistent with pneumonia, ceftriaxone and azithromycin ordered. Labs show creatinine of 2.1, bun only 38 so unlikely Upper gi bleed. Given her anemia, pneumonia, AMS and soft blood pressure will admit to the ICU for continued treatment and management. Daughter updated with plan and is in agreement. Differential Diagnosis Differential Diagnosis: cva, lithium toxicity, electrolyte abnormality, pneumonia Medical Records Medical records reviewed: Yes I reviewed the patient's medical records. Imaging Data Radiologic Study: Attestation: I personally reviewed and interpreted this imaging study as follows: Imaging: CT Scan Radiologist's impression: no acute findings head and c spine CT Radiologic Study #2: Attestation: I personally reviewed and interpreted this imaging study as follows: Imaging: CT Scan Radiologist's impression: IMPRESSION: 1. No evidence for acute trauma in the chest. 2. Large consolidation in the left upper lobe and moderate amount in the left lower lobe. Consistent with pneumonia 3. Large hiatal/paraesophageal hernia. IMPRESSION: 1. No acute findings. 2. Cholelithiasis 3. No acute fracture. Mild L1 compression deformity, likely chronic but new from 2019 exam Lab Data Lab results reviewed: Yes I reviewed the patient's lab results. ECG Data Attestation: I personally reviewed and interpreted this ECG (s) as follows: Prior ECG tracings: available for review Interpretation: sinus rhythm, rate of 90, no acute st t wave ischemic findings HPI General Mode of arrival: EMS . Date/Time Provider Initiated Documentation: 11/19/21 04:18 . Limitations to Documentation: altered mental status . Information obtained by: family . History of Present Illness 81 year old F presents to the emergency department with the chief complaint of altered mental status, described as moderate, Patient started experiencing this unknown and it has been constant. No relieving factors improve symptom(s), No exacerbating factors reported . Patient notes confusion. Patient did receive the following treatments prior to arrival, none Related Data Home Medications Medication Instructions Recorded Confirmed cholecalciferol (vitamin D3) 50 2,000 unit PO DAILY 09/18/12 05/19/21 mcg (2,000 unit) tablet (Vitamin D3) multivitamin 1 ea PO DAILY 09/18/12 05/19/21 aspirin 81 mg chewable tablet 81 mg PO DAILY 12/11/14 05/19/21 (Aspirin Low-Strength) miconazole nitrate 2 % topical 1 applic topical DAILY 11/27/19 05/19/21 powder (Desenex) acetaminophen 500 mg tablet 1,000 mg PO TID PRN pain #270 tabs 02/20/20 05/19/21 (Tylenol Extra Strength) polyethylene glycol 3350 17 gram 17 g PO DAILY PRN PRN Constipation 12/13/20 05/19/21 oral powder packet #0 ea quetiapine 50 mg tablet (Seroquel) 150 mg PO QHS 12/15/20 05/19/21 amlodipine 10 mg tablet 10 mg PO DAILY #90 tab-caps 01/26/21 05/19/21 carvedilol 12.5 mg tablet 12.5 mg PO BID #60 tabs 02/09/21 05/19/21 folic acid 1 mg tablet 1 mg PO DAILY #30 tabs 02/09/21 05/19/21 levothyroxine 50 mcg tablet 50 mcg PO DAILY #30 tabs 02/09/21 05/19/21 pantoprazole 40 mg tablet,delayed 40 mg PO DAILY #30 tabs 02/09/21 05/19/21 release hydroxyzine HCl 25 mg tablet 25 mg PO 05/14/21 05/19/21 lithium carbonate 450 mg 450 mg PO HS 05/14/21 05/14/21 tablet,extended release lorazepam 1 mg tablet 1 mg PO BID PRN PRN 05/14/21 05/19/21 melatonin 5 mg capsule 5 mg PO HS 05/14/21 05/19/21 ondansetron 4 mg disintegrating 4 mg PO Q8H PRN 05/19/21 05/19/21 tablet Previous Rx's Medication Instructions Recorded acetaminophen 500 mg tablet 1,000 mg PO TID PRN pain #270 tabs 02/20/20 (Tylenol Extra Strength) polyethylene glycol 3350 17 gram 17 g PO DAILY PRN PRN Constipation 12/13/20 oral powder packet #0 ea amlodipine 10 mg tablet 10 mg PO DAILY #90 tab-caps 01/26/21 carvedilol 12.5 mg tablet 12.5 mg PO BID #60 tabs 02/09/21 folic acid 1 mg tablet 1 mg PO DAILY #30 tabs 02/09/21 levothyroxine 50 mcg tablet 50 mcg PO DAILY #30 tabs 02/09/21 pantoprazole 40 mg tablet,delayed 40 mg PO DAILY #30 tabs 02/09/21 release Allergies Allergy/AdvReac Type Severity Reaction Status Date / Time fluoxetine Allergy Mild Verified 05/19/21 10:52 olanzapine Allergy Mild Verified 05/19/21 10:52 trazodone Allergy Mild Verified 05/19/21 10:52 haloperidol AdvReac Severe Contraindic Verified 05/19/21 10:52 ated Phenothiazines AdvReac Severe DYSTONIA Verified 05/19/21 10:52 General Stated Complaint: AMS/LOC GRANT: 3 Review of Systems Unobtainable due to mental status PFSH All Active Problems (Updated 11/19/21 @ 06:37 by Heladio Gold) Hypoxemia (Acute) ITZEL (acute kidney injury) (Acute) Anemia (Acute) Fall (Acute) Altered mental status (Acute) Pneumonia (Acute) Asymmetrical sensorineural hearing loss (Acute) Anxiety (Chronic) Sensorineural hearing loss, bilateral (Acute) Knee pain, right (Acute) Hip pain, right (Acute) Anemia (Chronic) Acute kidney injury superimposed on chronic kidney disease (Acute) Encephalopathy acute (Acute) Multiple fractures of ribs (Acute 12/09/13) Hearing loss (Chronic) Chronic kidney disease, stage III (moderate) (Chronic 09/26/11) 08/25/2016 [facility] [place] nephro consult: JOSE-I or ARB not recommended for this pt DJD (degenerative joint disease), lumbar (Acute 12/26/13) x-ray 12/2013 DVT (deep venous thrombosis) (Acute 12/08/13) 09/2013 L at OSH, (confirmed 11/2013 [facility] bc pt off therapy) RX Xarelto Depressive disorder (Acute 11/11/12) Dr. Esther Heath, Psychiatrist Multiple hospitalizations Psych dx's: unipolar vs. bipolar 2 depression, multiple episodes of delirium in response to medications in the past during previous hospitalizations Essential hypertension (Chronic 10/01/12) Heartburn (Acute 11/11/12) Hyperlipidemia (Acute 11/11/12) TLCs Lumbar scoliosis (Acute 12/26/13) X-ray 12/2013; moderate L convex lumbar scoliosis Urge incontinence of urine (Acute 11/11/12) M. 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 With Catatonia. S/P multiple psychiatric admissions. On [place], Lorazepam, Nortriptyline and Quetiapine as an out-patient, unclear doses. Hypertension (Chronic) Hyperlipidemia (Chronic) Hypothyroidism (Chronic) Constipation (Chronic) Medical History Bipolar 2 disorder (01/30/17) Per Dr. 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 Surgical History S/P ORIF (open reduction internal fixation) fracture Family History Brother Heart disease Stroke Brother Heart disease Dementia Father Throat cancer Mother Dementia Other Hypertension Social History Smoking/Tobacco Use Status: Never Smoking risk assessment performed?: Yes Alcohol Intake: former Drug use: Never Substance use type: does not use Number of Children: 2 Pets and animals: Yes Pets and animals: cat(s) Current gender identity: female What type of physical activity do you participate in: walking Frequency: daily Seatbelt use: always Do you feel safe at home: Yes Do you feel safe in your relationship?: Yes Exam Const Limitations: altered mental status HENMT Head: normal to inspection Ears: external ears normal General nose exam: external nose normal Mouth: moist mucous membranes Eyes General: appearance normal, both eyes and all related structures Neck Neck: normal visual inspection Resp Auscultation: no wheezes Cardio Rate: regular rate GI Palpation: soft and tender Skin General skin exam: no rashes or lesions noted Neuro General: patient confused Cranial Nerves: PERRL Extrem General: normal to inspection Course Vital Signs Vital signs: Vital Signs Temperature 36.0 C L 11/19/21 04:27 Pulse 92 H 11/19/21 04:27 Respiratory Rate 24 11/19/21 04:27 Blood Pressure 91/42 L 11/19/21 04:27 Pulse Oximetry 100 11/19/21 04:27 Temperature 36.0 C L 11/19/21 04:27 Temperature Source Skin 11/19/21 04:27 Pulse 92 H 11/19/21 04:27 Respiratory Rate 24 11/19/21 04:27 Blood Pressure 91/42 L 11/19/21 04:27 Blood Pressure Position Sitting 11/19/21 04:27 Pulse Oximetry 100 11/19/21 04:27 Oxygen Delivery Method Room Air 11/19/21 04:27 Oxygen Flow Rate 0 11/19/21 04:27 Comment 11/19/21 04:27 Critical Care Time Critical Care Time Critical Care Time: Yes Total Critical Care Time: 60 (minutes) Attestation: time spent on lab review, hemodynamic monitoring, and frequent reassessments on a patient requiring bipap and blood transfusions for life threatening anemia and potential to deteriorate at any time
[2021-11-19 04:58] LABS: BE (Venous) -10 mmol/L (-2-3); HCO3 (Venous) 16 mmol/L (23-28); O2 Sat (Venous) 75 %; Source Nasal/Nares; TCO2 (Venous) 16 mmol/L (24-29); pCO2 (Venous) 31 mmHg (41-51); pH (Venous) 7.33 (7.31-7.41); pO2 (Venous) 43 mmHg
[2021-11-19 05:06] LABS: Abs Immature Grans 0.02 10^3/uL (0.0-0.06); Absolute Basophil Count 0.01 10^3/uL (0.0-0.2); Absolute Eosinophil Count 0.02 10^3/uL (0.0-0.7); Absolute Lymphocyte Count 0.56 10^3/uL (1.2-3.4); Absolute Monocyte Count 0.49 10^3/uL (0.1-0.8); Absolute Neutrophil Count 4.02 10^3/uL (1.2-6.7); Basophils % 0.2; Eosinophils % 0.4; HCT 21.2 % (36.0-46.0); Immature Grans % 0.4; Lymphocytes % 10.9; MCH 19.1 pg (27.0-33.0); MCHC 27.4 % (32.0-36.0); MCV 70 fL (80-95); MPV 9.6 fL (8.0-11.0); Monocytes % 9.6; Neutrophils % 78.5; Platelet Count 264 10^3/uL (130-400); RBC 3.04 10^6/uL (3.93-5.22); RDW 17.1 % (11.7-14.6); RDW-SD 43.8 fL; WBC 5.12 10^3/uL (4.4-10.8)
[2021-11-19 05:09] LABS: Lithium 0.8 mmol/l (0.6-1.2)
[2021-11-19 05:13] LABS: HGB 5.8 g/dL (11.2-15.7)
[2021-11-19 05:17] LABS: Troponin I < 50 ng/L (<or=60)
[2021-11-19 05:20] LABS: Hypochromasia 3+; Microcytosis 2+
[2021-11-19 05:23] LABS: ALT 15 U/L (14-59); AST 13 U/L (15-37); Albumin 3.4 g/dL (3.4-5.0); Alkaline Phosphatase 66 U/L (46-116); Anion Gap 10.7 mmol/L (3-11); BUN 38 mg/dL (7-18); Bilirubin, Total 0.4 mg/dL (0.2-1.0); CO2 20.3 mmol/L (21.0-32.0); CREATININE 2.1 mg/dL (0.55-1.02); Calcium 8.5 mg/dL (8.5-10.1); Chloride 104 mmol/L (98-107); ETHANOL BLOOD 4.1 mg/dL (<10); Estimated GFR 22.55 (mL/min/1.73m2); Glucose 109 mg/dL (74-106); Potassium 4.1 mmol/L (3.5-5.1); Sodium 135 mmol/L (136-145); TSH (W/Ref FT4) 2.19 uIU/mL (0.36-3.74); Total Protein 6.6 g/dL (6.4-8.2)
[2021-11-19 05:24] LABS: Acetaminophen < 2 ug/mL (10-30)
--- NOTE | 2021-11-19 05:39 | DI.VRAD_ITS ---
PROCEDURE INFORMATION: Exam: CT Head Without Contrast Exam date and time: 11/19/2021 5:12 AM Age: 81 years old Clinical indication: Trauma; Concussion / head injury; Injury date: 11/19/21; Fall, altered mental status TECHNIQUE: Imaging protocol: Computed tomography of the head without contrast. Radiation optimization: All CT scans at this facility use at least one of these dose optimization techniques: automated exposure control; mA and/or kV adjustment per patient size (includes targeted exams where dose is matched to clinical indication); or iterative reconstruction. COMPARISON: CT HEAD WO 05/14/2021 8:37 AM FINDINGS: Brain: Periventricular white matter areas of decreased density which are likely secondary to chronic ischemia from microvascular change. No acute intracranial hemorrhage. Diffuse cerebral atrophy. Cerebral ventricles: Ventricular prominence in this patient with diffuse cerebral atrophy. Paranasal sinuses: No significant disease of the paranasal sinuses. Mastoid air cells: No mastoiditis. Bones/joints: No acute fracture. Soft tissues: Unremarkable. Vasculature: Arterial calcifications. IMPRESSION: 1. No acute fracture. 2. No acute intracranial findings. 3. Diffuse cerebral atrophy. Age-related periventricular white matter changes. PROCEDURE INFORMATION: Exam: CT Cervical Spine Without Contrast Exam date and time: 11/19/2021 5:12 AM Age: 81 years old Clinical indication: Trauma; Concussion / head injury; Injury date: 11/19/21; Fall, altered mental status TECHNIQUE: Imaging protocol: Computed tomography of the cervical spine without contrast. Radiation optimization: All CT scans at this facility use at least one of these dose optimization techniques: automated exposure control; mA and/or kV adjustment per patient size (includes targeted exams where dose is matched to clinical indication); or iterative reconstruction. COMPARISON: CT HEAD WO 05/14/2021 8:37 AM FINDINGS: Bones/joints: No acute fracture. No subluxation. Discs/Spinal canal/Neural foramina: No significant disc protrusion. No severe spinal canal stenosis. Cervical spine multilevel degenerative / spondylitic changes with multilevel neural foraminal narrowing. Lungs: Lung apices are normal. Soft tissues: Unremarkable. IMPRESSION: No acute fracture or subluxation. Dictated and Authenticated by: Mike Rabago MD. Ordering:LUIZ Mendoza MD
--- NOTE | 2021-11-19 05:49 | NUR.NOTE ---
ordered emergency release 1 unit uncrossmatched O- blood 0540 signed release 0542 This nurse received O- blood 1 unit from lab. 0550 Vitals prior to infusion: T 36.1, RR 28, BP 99/45, Spo2 100% on BiPAP Peep 5 Fio2 35 [id number] GUERRERO Hernandez hung 1 unit O- blood 0551.
--- NOTE | 2021-11-19 05:51 | DI.VRAD_ITS ---
PROCEDURE INFORMATION: Exam: CT Chest Without Contrast; Diagnostic Exam date and time: 11/19/2021 5:16 AM Age: 81 years old Clinical indication: Injury or trauma; Ruq; Blunt trauma (contusions or hematomas); Injury date: 11/19/21; Injury details: Fall, pain on right chest and abdomen; Prior surgery; Surgery date: 6+ months; Surgery type: Port-a-cath TECHNIQUE: Imaging protocol: Diagnostic computed tomography of the chest without contrast. Reformatted images were created and reviewed. Radiation optimization: All CT scans at this facility use at least one of these dose optimization techniques: automated exposure control; mA and/or kV adjustment per patient size (includes targeted exams where dose is matched to clinical indication); or iterative reconstruction. COMPARISON: CT CHEST/ABD/PEL WO 04/19/2019 5:17 AM FINDINGS: Tubes, catheters and devices: Right Port-A-Cath Lungs: Large consolidation in the left upper lobe and moderate amount in the left lower lobe Pleural spaces: Unremarkable. No pneumothorax. No pleural effusion. Heart: No pericardial effusion. Lymph nodes: No enlarged lymph nodes. Vasculature: Unremarkable. No aortic aneurysm. Stomach and bowel: Large hiatal/paraesophageal hernia. Bones/joints: No acute fracture. [id number] chronic compression deformities in the mid and lower thoracic spine, similar to prior Soft tissues: No acute findings. IMPRESSION: 1. No evidence for acute trauma in the chest. 2. Large consolidation in the left upper lobe and moderate amount in the left lower lobe. Consistent with pneumonia 3. Large hiatal/paraesophageal hernia. PROCEDURE INFORMATION: Exam: CT Abdomen And Pelvis Without Contrast Exam date and time: 11/19/2021 5:16 AM Age: 81 years old Clinical indication: Injury or trauma; Ruq; Blunt trauma (contusions or hematomas); Injury date: 11/19/21; Injury details: Fall, pain on right chest and abdomen; Prior surgery; Surgery date: 6+ months; Surgery type: Port-a-cath TECHNIQUE: Imaging protocol: Computed tomography of the abdomen and pelvis without contrast. Reformatted images were created and reviewed. Radiation optimization: All CT scans at this facility use at least one of these dose optimization techniques: automated exposure control; mA and/or kV adjustment per patient size (includes targeted exams where dose is matched to clinical indication); or iterative reconstruction. COMPARISON: 1. CT CHEST/ABD/PEL WO 04/19/2019 5:[address] PELVIC WO 07/13/2020 12:35 AM FINDINGS: Liver: No acute abnormality. Gallbladder and bile ducts: Gallstone Pancreas: No ductal dilation. Spleen: No acute abnormality. Adrenal glands: Normal. No mass. Kidneys and ureters: No ureter or obstructing renal stones. No hydronephrosis. Stomach and bowel: No bowel obstruction. Appendix: No evidence of appendicitis. Intraperitoneal space: No free air. No significant fluid collection. Vasculature: No abdominal aortic aneurysm. Lymph nodes: No enlarged lymph nodes. Urinary bladder: Unremarkable as visualized. Reproductive: No acute findings. Bones/joints: No acute fracture. Mild L1 compression deformity, likely chronic but new from 2019 exam. Mild lumbar scoliosis convex towards the left again noted Soft tissues: No acute findings. IMPRESSION: 1. No acute findings. 2. Cholelithiasis 3. No acute fracture. Mild L1 compression deformity, likely chronic but new from 2019 exam. Dictated and Authenticated by: Garcia Ross MD. Ordering:LUIZ Mendoza MD
[2021-11-19 05:55] LABS: COVID-19 PCR Negative (Negative)
[2021-11-19 06:18] LABS: Bilirubin Negative (Negative); Blood Negative (Negative); Clarity Sl Cloudy (Clear); Glucose Negative (Negative); Ketones Negative (Negative); Leukocyte Esterase Negative (Negative); Nitrite Negative (Negative); Urobilinogen 0.2 EU/dL (Up TO 0.2); pH 5.5 (5-8)
--- NOTE | 2021-11-19 06:21 | HPE_ITS ---
Date of service: 11/19/21 Time of Service: 06: Assessment and Plan Assessment and plan (1) Fall: Start date: 11/19/21 Status: Acute Assessment and plan: This is an 81-year-old lady who has bipolar disorder and over the last week has become altered with her mental status with daughter thinking that she was becoming catatonic with her bipolar mood disorder on lithium. She fell onto her right side prior to admission with no significant injury and was found to be profoundly anemic which appears to be chronic with low MCV and heme-negative stools with rectal exam done by ED physician. She was hypoxic and hypotensive with ITZEL and is responding to blood transfusion and IV fluids. She also supported with BiPAP for hypoxemia with her pneumonia and hypoventilation with her acute change in mental status. Her fall was most likely multifactorial and secondary to her acute decompensation with hypotension. She is a full code and will be placed in the ICU for care. (2) Altered mental status: Start date: 11/19/21 Status: Acute Assessment and plan: Secondary to hypotension and hypoxemia the patient having baseline problems with catatonia occasionally with her bipolar mood disorder. This should clear to baseline with treatment of her acute anemia, ITZEL and improvement of her hypoxemia with O2 treating her pneumonia. (3) Anemia: Start date: 11/19/21 Status: Acute Assessment and plan: Patient has profound anemia most likely secondary to slow blood loss with low MCV and most likely iron. Transfuse 2 units packed red blood cells and consider surgical consultation with endoscopies once stabilized. Patient does not appear to have active blood loss with heme-negative stools in the rectal vault with ED physician exam. Patient may have some chronic anemia with CKD on her problem list. (4) Pneumonia: Start date: 11/19/21 Status: Acute Assessment and plan: Left pneumonia with patient on ceftriaxone and Zithromax which will be continued. Continue O2 support for hypoxemia. Patient currently is on BiPAP and will go to the ICU for care. (5) ITZEL (acute kidney injury): Start date: 11/19/21 Status: Acute Assessment and plan: IV hydration okay to have patient return to baseline CKD. (6) Hypoxemia: Start date: 11/19/21 Status: Acute Assessment and plan: Secondary to pneumonia and hypoventilation with patient's acute obtundation. BiPAP and O2 supplementation as we treat her reversible problems including pneumonia. Replenishing her blood with her anemia may be helpful as well. History of Present Illness History of Present Illness Chief Complaint: Altered mental status with fall at home Narrative: This is an 81-year-old female patient who lives with significant other and has her daughter help her with her health care. Her daughter is DPOA. Patient does have chronic bipolar mood disorder and is on lithium and the daughter worried about her being more lethargic over this last week and was wanting her to have blood work. Patient has not had any cough, fever or change in bowel habits and the daughter has not seen any blood in her stool or urine. Patient has had no urinary complaints. At home patient has been more agitated and abnormal thi nking that she was having catatonia which she has had problems with in the past. She was concerned about her kidneys being on lithium. On the day of admission during the night prior the patient got up to go to the bathroom and her significant other her a noise and she fell. She was brought to the ED for evaluation and found to be severely anemic which appear to be chronic with an MCV being low and heme-negative stool. Patient was also hypotensive and hypoxic and was found to have a pneumonia with significant infiltrate on imaging. She was placed on BiPAP for hypoxemia but was not retaining CO2. Patient appeared to have fallen on her right side with some discomfort to palpation over her chest and abdomen but no significant injury noted. She had no obvious focal neurological findings and imaging mostly revealed the pneumonia. The patient has been a DNR/DNI in the past but the daughter wanted her to be a full code. This is an ongoing discussion. Patient did receive fluid and her first unit of packed red blood cells in the ED with improvement of her blood pressure and hypoxemia was improved with BiPAP with O2. She will be switched to high flow O2 in the ICU where she will be admitted for continued treatment. She does have ITZEL with pneumonia over the left lung field. CT of the head did not reveal any acute process. CT of the chest and abdomen did reveal cholelithiasis, a large hilar hernia consolidation in the right lung as mentioned and a mild L1 compression fracture with appear to be old. Patient was not able to offer further history lying in bed with warmer on BiPAP but comfortable. Review of Systems Narrative: 13 point review of systems otherwise unrevealing or unobtainable with patient obtunded. Daughter did offer further history about the 1 week of change in mental status with what she thought was catatonia. [facility] All Active Problems (Updated 11/19/21 @ 06:37 by Heladio Gold) Hypoxemia (Acute) ITZEL (acute kidney injury) (Acute) Anemia (Acute) Fall (Acute) Altered mental status (Acute) Pneumonia (Acute) Asymmetrical sensorineural hearing loss (Acute) Anxiety (Chronic) Sensorineural hearing loss, bilateral (Acute) Knee pain, right (Acute) Hip pain, right (Acute) Anemia (Chronic) Acute kidney injury superimposed on chronic kidney disease (Acute) Encephalopathy acute (Acute) Multiple fractures of ribs (Acute 12/09/13) Hearing loss (Chronic) Chronic kidney disease, stage III (moderate) (Chronic 09/26/11) 08/25/2016 [facility] nephro consult: JOSE-I or ARB not recommended for this pt DJD (degenerative joint disease), lumbar (Acute 12/26/13) x-ray 12/2013 DVT (deep venous thrombosis) (Acute 12/08/13) 09/2013 L at OSH, (confirmed 11/2013 [facility] pt off therapy) RX Xarelto Depressive disorder (Acute 11/11/12) Dr. Esther Heath, Psychiatrist Multiple hospitalizations Psych dx's: unipolar vs. 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 With Catatonia. S/P multiple psychiatric admissions. On [place], Lorazepam, Nortriptyline and Quetiapine as an out-patient, unclear doses. Hypertension (Chronic) Hyperlipidemia (Chronic) Hypothyroidism (Chronic) Constipation (Chronic) Medical History Bipolar 2 disorder (01/30/17) Per Dr. Heath, with severe treatment resistant dpressive phases vs treat ment resistant depression 01/25/17 [facility] CKD (chronic kidney disease) Deep vein thrombosis (12/08/13) GERD (gastroesophageal reflux disease) HLD (hyperlipidemia) HTN (hypertension) Hypothyroidism (11/11/12) Tardive dyskinesia (04/17/16) Dr. 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 Surgical History S/P ORIF (open reduction internal fixation) fracture Family History Brother Heart disease Stroke Brother Heart disease Dementia Father Throat cancer Mother Dementia Other Hypertension Social History Smoking/Tobacco Use Status: Never Smoking risk assessment performed?: Yes Alcohol Intake: former Drug use: Never Substance use type: does not use Number of Children: 2 Pets and animals: Yes Pets and animals: cat(s) Current gender identity: female What type of physical activity do you participate in: walking Frequency: daily Seatbelt use: always Do you feel safe at home: Yes Do you feel safe in your relationship?: Yes Meds Allergies and Home Medications Allergies Allergy/AdvReac Type Severity Reaction Status Date / Time fluoxetine Allergy Mild Verified 05/19/21 10:52 olanzapine Allergy Mild Verified 05/19/21 10:52 trazodone Allergy Mild Verified 05/19/21 10:52 haloperidol AdvReac Severe Contraindic Verified 05/19/21 10:52 ated Phenothiazines AdvReac Severe DYSTONIA Verified 05/19/21 10:52 Home Medications Medication Instructions Recorded Confirmed Type cholecalciferol (vitamin D3) 50 2,000 unit PO DAILY 09/18/12 05/19/21 History mcg (2,000 unit) tablet (Vitamin D3) multivitamin 1 ea PO DAILY 09/18/12 05/19/21 History aspirin 81 mg chewable tablet 81 mg PO DAILY 12/11/14 05/19/21 History (Aspirin Low-Strength) miconazole nitrate 2 % topical 1 applic topical DAILY 11/27/19 05/19/21 History powder (Desenex) acetaminophen 500 mg tablet 1,000 mg PO TID PRN pain #270 tabs 02/20/20 05/19/21 Rx (Tylenol Extra Strength) polyethylene glycol 3350 17 gram 17 g PO DAILY PRN PRN Constipation 12/13/20 05/19/21 Rx oral powder packet #0 ea quetiapine 50 mg tablet (Seroquel) 150 mg PO QHS 12/15/20 05/19/21 History amlodipine 10 mg tablet 10 mg PO DAILY #90 tab-caps 01/26/21 05/19/21 Rx carvedilol 12.5 mg tablet 12.5 mg PO BID #60 tabs 02/09/21 05/19/21 Rx folic acid 1 mg tablet 1 mg PO DAILY #30 tabs 02/09/21 05/19/21 Rx levothyroxine 50 mcg tablet 50 mcg PO DAILY #30 tabs 02/09/21 05/19/21 Rx pantoprazole 40 mg tablet,delayed 40 mg PO DAILY #30 tabs 02/09/21 05/19/21 Rx release hydroxyzine HCl 25 mg tablet 25 mg PO 05/14/21 05/19/21 History lithium carbonate 450 mg 450 mg PO HS 05/14/21 05/14/21 History tablet,extended release lorazepam 1 mg tablet 1 mg PO BID PRN PRN 05/14/21 05/19/21 History melatonin 5 mg capsule 5 mg PO HS 05/14/21 05/19/21 History ondansetron 4 mg disintegrating 4 mg PO Q8H PRN 05/19/21 05/19/21 History tablet Exam Narrative Exam Narrative: General: Patient appears appropriate for age lying in bed comfortably with eyes closed responding minimally. By report she did notice she was in the hospital and knew her daughter. She is in no acute distress. She is wearing BiPAP. HEENT: Normocephalic, eyes with pupils equal and reactive to light symmetrically, extraocular movement intact and sclera anicteric. Oral mucosa dry. Neck: Supple without JVD. Back: Not examined with patient lying on stretcher. Lungs: Expiratory crackles bilaterally with shallow respirations but with deep breath fairly clear with occasional rhonchi. No focalizing rales with anterior exam of the chest. Breast: Exam deferred. Abdomen: Obese contour, soft nontender to palpation with no guarding or rebound. No palpable hepatosplenomegaly. Genitalia/rectal: Exam deferred. Patient has Payan catheter in place. Extremities: Without pitting edema, cyanosis or clubbing. Fair capillary refill. Skin: Pale, warm and dry. No bruising over the right side where patient had fallen but was uncomfortable with ED exam. Neuro: Cranial nerves II through XII appear grossly intact, there is no focal motor findings with patient moving all extremities passively. Psych: Patient is withdrawn and obtunded with her acute medical illness. Daughter states that she has been acting more catatonic recently but usually engages well with family. There is no mention of remote or recent memory deficits but she does suffer with mood disorder and at times is less lucid. Results Imaging Imaging Studies: Exam: CT Head Without Contrast Exam date and time: 11/19/2021 5:12 AM Age: 81 years old Clinical indication: Trauma; Concussion / head injury; Injury date: 11/19/21; Fall, altered mental status TECHNIQUE: Imaging protocol: Computed tomography of the head without contrast. Radiation optimization: All CT scans at this facility use at least one of these dose optimization techniques: automated exposure control; mA and/or kV adjustment per patient size (includes targeted exams where dose is matched to clinical indication); or iterative reconstruction. COMPARISON: CT HEAD WO 05/14/2021 8:37 AM FINDINGS: Brain: Periventricular white matter areas of decreased density which are likely secondary to chronic ischemia from microvascular change. No acute intracranial hemorrhage. Diffuse cerebral atrophy. Cerebral ventricles: Ventricular prominence in this patient with diffuse cerebral atrophy. Paranasal sinuses: No significant disease of the paranasal sinuses. Mastoid air cells: No mastoiditis. Bones/joints: No acute fracture. Soft tissues: Unremarkable. Vasculature: Arterial calcifications. IMPRESSION: 1. No acute fracture. 2. No acute intracranial findings. 3. Diffuse cerebral atrophy. Age-related periventricular white matter changes. Exam: CT Chest Without Contrast; Diagnostic Exam date and time: 11/19/2021 5:16 AM Age: 81 years old Clinical indication: Injury or trauma; Ruq; Blunt trauma (contusions or hematomas); Injury date: 11/19/21; Injury details: Fall, pain on right chest and abdomen; Prior surgery; Surgery date: 6+ months; Surgery type: Port-a-cath TECHNIQUE: Imaging protocol: Diagnostic computed tomography of the chest without contrast. Reformatted images were created and reviewed. Radiation optimization: All CT scans at this facility use at least one of these dose optimization techniques: automated exposure control; mA and/or kV adjustment per patient size (includes targeted exams where dose is matched to clinical indication); or iterative reconstruction. COMPARISON: CT CHEST/ABD/PEL WO 04/19/2019 5:17 AM FINDINGS: Tubes, catheters and devices: Right Port-A-Cath Lungs: Large consolidation in the left upper lobe and moderate amount in the left lower lobe Pleural spaces: Unremarkable. No pneumothorax. No pleural effusion. Heart: No pericardial effusion. Lymph nodes: No enlarged lymph nodes. Vasculature: Unremarkable. No aortic aneurysm.? Stomach and bowel: Large hiatal/paraesophageal hernia. Bones/joints: No acute fracture. [id number] chronic compression deformities in the mid and lower thoracic spine, similar to prior Soft tissues: No acute findings. IMPRESSION: 1. No evidence for acute trauma in the chest. 2. Large consolidation in the left upper lobe and moderate amount in the left lower lobe. Consistent with pneumonia 3. Large hiatal/paraesophageal hernia. PROCEDURE INFORMATION: Exam: CT Abdomen And Pelvis Without Contrast Exam date and time: 11/19/2021 5:16 AM Age: 81 years old Clinical indication: Injury or trauma; Ruq; Blunt trauma (contusions or hematomas); Injury date: 11/19/21; Injury details: Fall, pain on right chest and abdomen; Prior surgery; Surgery date: 6+ months; Surgery type: Port-a-cath TECHNIQUE: Imaging protocol: Computed tomography of the abdomen and pelvis without contrast. Reformatted images were created and reviewed. Radiation optimization: All CT scans at this facility use at least one of these dose optimization techniques: automated exposure control; mA and/or kV adjustment per patient size (includes targeted exams where dose is matched to clinical indication); or iterative reconstruction. COMPARISON: 1. CT CHEST/ABD/PEL WO 04/19/2019 5:[address] PELVIC WO 07/13/2020 12:35 AM FINDINGS: Liver: No acute abnormality. Gallbladder and bile ducts: Gallstone Pancreas: No ductal dilation. Spleen: No acute abnormality. Adrenal glands: Normal. No mass. Kidneys and ureters: No ureter or obstructing renal stones. No hydronephrosis. Stomach and bowel: No bowel obstruction. Appendix: No evidence of appendicitis. Intraperitoneal space: No free air. No significant fluid collection. Vasculature: No abdominal aortic aneurysm. Lymph nodes: No enlarged lymph nodes. Urinary bladder: Unremarkable as visualized. Reproductive: No acute findings. Bones/joints: No acute fracture. Mild L1 compression deformity, likely chronic but new from 2019 exam. Mild lumbar scoliosis convex towards the left again noted Soft tissues: No acute findings. IMPRESSION: 1. No acute findings. 2. Cholelithiasis 3. No acute fracture. Mild L1 compression deformity, likely chronic but new from 2019 exam. Labs Result diagrams: 11/19/21 04:40 11/19/21 04:40 Labs: Laboratory Results - last 24 hr 11/19/21 11/19/21 11/19/21 04:40 04:40 04:40 WBC 5.12 RBC 3.04 L Hgb 5.8 L* Hct 21.2 L MCV 70 L MCH 19.1 L MCHC 27.4 L RDW 17.1 H Plt Count 264 MPV 9.6 Immature Gran % 0.4 Neutrophils % 78.5 Lymphocytes % 10.9 Monocytes % 9.6 Eosinophils % 0.4 Basophils % 0.2 Nucleated RBC % 0.0 Absolute Neutrophils 4.02 Absolute Lymphocytes 0.56 L Absolute Monocytes 0.49 Absolute Eosinophils 0.02 Absolute Basophils 0.01 RBC Morphology See Below Hypochromasia 3+ Microcytosis 2+ VBG pH VBG pCO2 VBG pO2 VBG HCO3 VBG Total CO2 VBG O2 Saturation VBG Base Excess Sodium 135 L Potassium 4.1 Chloride 104 Carbon Dioxide 20.3 L Anion Gap 10.7 BUN 38 H Creatinine 2.1 H Estimated GFR/1.73 m2 22.55 Glucose 109 H Calcium 8.5 Magnesium 2.0 Total Bilirubin 0.4 AST 13 L ALT 15 Alkaline Phosphatase 66 Troponin I Total Protein 6.6 Albumin 3.4 TSH 2.19 Urine Color Urine Clarity Urine pH Ur Specific [place] Urine Protein Urine Ketones Urine Blood Urine Nitrite Urine Bilirubin Urine Urobilinogen Ur Leukocyte Esterase Urine Glucose Acetaminophen < [address] [place] Ethyl Alcohol 4.1 COVID-19 Source Nasal/Nares SARS-CoV-2 (PCR) Negative Patient ABO/Rh Antibody Screen Crossmatch 11/19/21 11/19/21 11/19/21 04:40 04:40 04:40 WBC RBC Hgb Hct MCV MCH MCHC RDW Plt Count MPV Immature Gran % Neutrophils % Lymphocytes % Monocytes % Eosinophils % Basophils % Nucleated RBC % Absolute Neutrophils Absolute Lymphocytes Absolute Monocytes Absolute Eosinophils Absolute Basophils RBC Morphology Hypochromasia Microcytosis VBG pH 7.33 VBG pCO2 31 L VBG pO2 43 VBG HCO3 16 L VBG Total CO2 16 L VBG O2 Saturation 75 VBG Base Excess -10 L Sodium Potassium Chloride Carbon Dioxide Anion Gap BUN Creatinine Estimated GFR/1.73 m2 Glucose Calcium Magnesium Total Bilirubin AST ALT Alkaline Phosphatase Troponin I < 50 Total Protein Albumin TSH Urine Color Urine Clarity Urine pH Ur Specific [place] Urine Protein Urine Ketones Urine Blood Urine Nitrite Urine Bilirubin Urine Urobilinogen Ur Leukocyte Esterase Urine Glucose Acetaminophen [place] 0.8 Ethyl Alcohol COVID-19 Source SARS-CoV-2 (PCR) Patient ABO/Rh Antibody Screen Crossmatch 11/19/21 11/19/21 05:30 06:15 WBC RBC Hgb Hct MCV MCH MCHC RDW Plt Count MPV Immature Gran % Neutrophils % Lymphocytes % Monocytes % Eosinophils % Basophils % Nucleated RBC % Absolute Neutrophils Absolute Lymphocytes Absolute Monocytes Absolute Eosinophils Absolute Basophils RBC Morphology Hypochromasia Microcytosis VBG pH VBG pCO2 VBG pO2 VBG HCO3 VBG Total CO2 VBG O2 Saturation VBG Base Excess Sodium Potassium Chloride Carbon Dioxide Anion Gap BUN Creatinine Estimated GFR/1.73 m2 Glucose Calcium Magnesium Total Bilirubin AST ALT Alkaline Phosphatase Troponin I Total Protein Albumin TSH Urine Color Yellow Urine Clarity Sl Cloudy Urine pH 5.5 Ur Specific [place] 1.020 Urine Protein Trace H Urine Ketones Negative Urine Blood Negative Urine Nitrite Negative Urine Bilirubin Negative Urine Urobilinogen 0.2 Ur Leukocyte Esterase Negative Urine Glucose Negative Acetaminophen [place] Ethyl Alcohol COVID-19 Source SARS-CoV-2 (PCR) Patient ABO/Rh A Positive Antibody Screen NEGATIVE Crossmatch See Detail Last Vital Signs Temp 36.0 C L 11/19/21 04:27 Pulse 90 11/19/21 05:31 Resp 29 H 11/19/21 05:31 BP 87/38 L 11/19/21 05:31 Pulse Ox 92 11/19/21 05:31
[2021-11-19 06:25] LABS: Bacteria Rare HPF (Negative); C & S Indicated? No; Casts 0-2 Hyaline LPF (Negative); Crystals Negative HPF (Negative); Epithelial Cells Rare HPF (Negative); Mucus Moderate (Negative); RBC 0-2 HPF (0-2); WBC 0-2 HPF (0-5)
[2021-11-19 06:37] LABS: *AMPHETAMINES SCREEN URINE Negative (Negative); *BARBITURATES SCREEN URINE Negative (Negative); *BENZODIAZEPINES SCREEN URINE Negative (Negative); Cannabinoids THC Negative (Negative); Cocaine Screen,Urine Negative (Negative); METHADONE URINE SCREEN Negative (Negative); OPIATES URINE SCREEN Negative (Negative)
[2021-11-19 06:51] LABS: Tricyclic Antidepressants Positive (Negative)
[2021-11-19] MEDS: cefTRIAXone 2 GM/50 ML BAG IVPB (07:51)
[2021-11-19 08:15] LABS: Troponin I < 50 ng/L (<or=60)
[2021-11-19] MEDS: AZITHROMYCIN 500 MG in Normal Saline 250 ML 250 MG IVPB (08:28)
[2021-11-19] MEDS: Normal Saline 250 ML 500 ML IV (08:55)
[2021-11-19] MEDS: ACETAMINOPHEN 1,000 MG/100 ML BTL 400 MG IVPB (09:24)
[2021-11-19] MEDS: LORazepam 2 MG/ML VIAL 1 MG IVP (10:34)
[2021-11-19] MEDS: Normal Saline 1,000 ML 150 ML IV ×3 (10:41→20:01)
[2021-11-19] MEDS: Pantoprazole 40 MG VIAL IVP ×2 (11:00→20:24)
[2021-11-19 11:13] LABS: INR 1.1 (0.9-1.1); Prothrombin Time 11.3 sec (9.3-11.0)
--- NOTE | 2021-11-19 12:33 | NUR.NOTE ---
Patient arrives on ICU unit at 12:20 p.m. Nursing Note:
--- NOTE | 2021-11-19 12:36 | NUR.NOTE ---
[Patient not making any sense at all. Vital signs are stable.Nursing Note:
[2021-11-19 13:14] LABS: HCT 25.1 % (36.0-46.0); HGB 7.4 g/dL (11.2-15.7)
[2021-11-19] MEDS: Normal Saline Flush 10 ML SYR IVP (13:22)
--- NOTE | 2021-11-19 14:58 | W.PM.PROGNOT ---
Date of Service Date of service: 11/19/21 Time of Service: 14:58 Assessment and Plan Assessment and plan (1) Pneumonia: Start date: 11/19/21 Status: Acute Assessment and plan: Present on admission. Continue empiric azithromycin and ceftriaxone as well as IVF. Await blood culture results. I do not think the patient will be cooperative with giving us a sputum sample. Check urine legionella and strep. Off of BiPAp and transitioned to 4L of O2 by NC. (2) Acute respiratory failure with hypoxia: Status: Acute Assessment and plan: Due to PNA, present on admission. As above. (3) Toxic metabolic encephalopathy: Status: Acute Assessment and plan: DDx: due to PNA, possible effect of supratherapeutic for her lithium level, dehydration/ITZEL, psychiatric causes, ?post-concussive. The patient is agitated to the point of now requiring restraints (combative, pulling out batista catheter). Will trial valium IM (ativan on national shortage). Haldol and olanzapine are listed in allergies (contraindicated). May require neurology and/or psychiatry consult. (4) Anemia: Start date: 11/19/21 Status: Acute Assessment and plan: S/p 2 units pRBCs - H/H improved to 7.4/25.1. Microcytic. Heme negative in the ED and not actively bleeding. Hemoglobin was 10.7 in 05/17. Will monitor hemoccults. Will attempt to obtain anemia studies on pre-transfusion blood. Recheck H/H in am. (5) Acute kidney injury superimposed on chronic kidney disease: Status: Acute Assessment and plan: ?Dehydration. Continue IVF, monitoring I/Os, daily weights. No evidence of obstructive uropathy on CT. Continue batista if the patient tolerates it. (6) Bipolar 2 disorder: Assessment and plan: Continue seroquel. Consider psychiatry consult. (7) Fall: Start date: 11/19/21 Status: Acute Assessment and plan: PT/OT consult when mental status is more appropriate. (8) DVT prophylaxis: Status: Acute Assessment and plan: TEDs. No chemica DVT ppx given unclear etiology of her anemia. (9) Discharge planning issues: Status: Acute Assessment and plan: Full code (formerly DNR/DNI, but this was reversed by the daughter on admission). Would probably benefit from a palliative care consult. Total Critical Care Time 35 minutes. Subjective Subjective Interval history since last seen: Ms Orosco remains very confused and restless. She is off of BiPAP and on 4L of O2. She is not able to answer any of my questions and has been speaking nonsensically. She completed transfusion of 2 units of pRBCs. She is not actively bleeding. Exam Narrative Exam Narrative: General: Restless elderly female who is A&Ox0, speaking nonsensically HEENT: EOMI, MMM Heart: RRR, no m/r/g Lungs: Diminished breath sounds B Abdomen: soft, nontender, nondistended Extremities: no edema BLEs Objective Last Vital Signs Temp 36.5 C 11/19/21 14:32 Pulse 90 11/19/21 14:32 Resp 17 11/19/21 14:32 BP 116/73 11/19/21 14:32 Pulse Ox 95 11/19/21 14:32 Laboratory Results - last 24 hr 11/19/21 11/19/21 11/19/21 04:40 04:40 04:40 WBC 5.12 RBC 3.04 L Hgb 5.8 L* Hct 21.2 L MCV 70 L MCH 19.1 L MCHC 27.4 L RDW 17.1 H Plt Count 264 MPV 9.6 Immature Gran % 0.4 Neutrophils % 78.5 Lymphocytes % 10.9 Monocytes % 9.6 Eosinophils % 0.4 Basophils % 0.2 Nucleated RBC % 0.0 Absolute Neutrophils 4.02 Absolute Lymphocytes 0.56 L Absolute Monocytes 0.49 Absolute Eosinophils 0.02 Absolute Basophils 0.01 RBC Morphology See Below Hypochromasia 3+ Microcytosis 2+ PT INR VBG pH VBG pCO2 VBG pO2 VBG HCO3 VBG Total CO2 VBG O2 Saturation VBG Base Excess Sodium 135 L Potassium 4.1 Chloride 104 Carbon Dioxide 20.3 L Anion Gap 10.7 BUN 38 H Creatinine 2.1 H Estimated GFR/1.73 m2 22.55 Glucose 109 H Calcium 8.5 Magnesium 2.0 Total Bilirubin 0.4 AST 13 L ALT 15 Alkaline Phosphatase 66 Troponin I Total Protein 6.6 Albumin 3.4 TSH 2.19 Urine Color Urine Clarity Urine pH Ur Specific [place] Urine Protein Urine Ketones Urine Blood Urine Nitrite Urine Bilirubin Urine Urobilinogen Ur Leukocyte Esterase Urine RBC Urine WBC Ur Epithelial Cells Urine Crystals Urine Bacteria Urine Casts Urine Mucus Ur Culture Indicated? Urine Glucose Urine Opiates Screen Urine Methadone Screen Acetaminophen < 2 Ur Barbiturates Screen Ur Tricyclics Screen Ur Amphetamines Screen U Benzodiazepines Scrn [place] Urine Cocaine Screen Ur THC Screen Ethyl Alcohol 4.1 COVID-19 Source Nasal/Nares SARS-CoV-2 (PCR) Negative Patient ABO/Rh Antibody Screen Crossmatch 11/19/21 11/19/21 11/19/21 04:40 04:40 04:40 WBC RBC Hgb Hct MCV MCH MCHC RDW Plt Count MPV Immature Gran % Neutrophils % Lymphocytes % Monocytes % Eosinophils % Basophils % Nucleated RBC % Absolute Neutrophils Absolute Lymphocytes Absolute Monocytes Absolute Eosinophils Absolute Basophils RBC Morphology Hypochromasia Microcytosis PT INR VBG pH 7.33 VBG pCO2 31 L VBG pO2 43 VBG HCO3 16 L VBG Total CO2 16 L VBG O2 Saturation 75 VBG Base Excess -10 L Sodium Potassium Chloride Carbon Dioxide Anion Gap BUN Creatinine Estimated GFR/1.73 m2 Glucose Calcium Magnesium Total Bilirubin AST ALT Alkaline Phosphatase Troponin I < 50 Total Protein Albumin TSH Urine Color Urine Clarity Urine pH Ur Specific [place] Urine Protein Urine Ketones Urine Blood Urine Nitrite Urine Bilirubin Urine Urobilinogen Ur Leukocyte Esterase Urine RBC Urine WBC Ur Epithelial Cells Urine Crystals Urine Bacteria Urine Casts Urine Mucus Ur Culture Indicated? Urine Glucose Urine Opiates Screen Urine Methadone Screen Acetaminophen Ur Barbiturates Screen Ur Tricyclics Screen Ur Amphetamines Screen U Benzodiazepines Scrn [place] 0.8 Urine Cocaine Screen Ur THC Screen Ethyl Alcohol COVID-19 Source SARS-CoV-2 (PCR) Patient ABO/Rh Antibody Screen Crossmatch 11/19/21 11/19/21 11/19/21 05:30 06:15 06:15 WBC RBC Hgb Hct MCV MCH MCHC RDW Plt Count MPV Immature Gran % Neutrophils % Lymphocytes % Monocytes % Eosinophils % Basophils % Nucleated RBC % Absolute Neutrophils Absolute Lymphocytes Absolute Monocytes Absolute Eosinophils Absolute Basophils RBC Morphology Hypochromasia Microcytosis PT INR VBG pH VBG pCO2 VBG pO2 VBG HCO3 VBG Total CO2 VBG O2 Saturation VBG Base Excess Sodium Potassium Chloride Carbon Dioxide Anion Gap BUN Creatinine Estimated GFR/1.73 m2 Glucose Calcium Magnesium Total Bilirubin AST ALT Alkaline Phosphatase Troponin I Total Protein Albumin TSH Urine Color Yellow Urine Clarity Sl Cloudy Urine pH 5.5 Ur Specific [place] 1.020 Urine Protein Trace H Urine Ketones Negative Urine Blood Negative Urine Nitrite Negative Urine Bilirubin Negative Urine Urobilinogen 0.2 Ur Leukocyte Esterase Negative Urine RBC 0-2 Urine WBC 0-2 Ur Epithelial Cells Rare Urine Crystals Negative Urine Bacteria Rare Urine Casts 0-2 Hyaline Urine Mucus Moderate Ur Culture Indicated? No Urine Glucose Negative Urine Opiates Screen Negative Urine Methadone Screen Negative Acetaminophen Ur Barbiturates Screen Negative Ur Tricyclics Screen Positive A Ur Amphetamines Screen Negative U Benzodiazepines Scrn Negative [place] Urine Cocaine Screen Negative Ur THC Screen Negative Ethyl Alcohol COVID-19 Source SARS-CoV-2 (PCR) Patient ABO/Rh A Positive Antibody Screen NEGATIVE Crossmatch See Detail 11/19/21 11/19/21 11/19/21 07:45 10:50 13:05 WBC RBC Hgb 7.4 L Hct 25.1 L MCV MCH MCHC RDW Plt Count MPV Immature Gran % Neutrophils % Lymphocytes % Monocytes % Eosinophils % Basophils % Nucleated RBC % Absolute Neutrophils Absolute Lymphocytes Absolute Monocytes Absolute Eosinophils Absolute Basophils RBC Morphology Hypochromasia Microcytosis PT 11.3 H INR 1.1 VBG pH VBG pCO2 VBG pO2 VBG HCO3 VBG Total CO2 VBG O2 Saturation VBG Base Excess Sodium Potassium Chloride Carbon Dioxide Anion Gap BUN Creatinine Estimated GFR/1.73 m2 Glucose Calcium Magnesium Total Bilirubin AST ALT Alkaline Phosphatase Troponin I < 50 Total Protein Albumin TSH Urine Color Urine Clarity Urine pH Ur Specific [place] Urine Protein Urine Ketones Urine Blood Urine Nitrite Urine Bilirubin Urine Urobilinogen Ur Leukocyte Esterase Urine RBC Urine WBC Ur Epithelial Cells Urine Crystals Urine Bacteria Urine Casts Urine Mucus Ur Culture Indicated? Urine Glucose Urine Opiates Screen Urine Methadone Screen Acetaminophen Ur Barbiturates Screen Ur Tricyclics Screen Ur Amphetamines Screen U Benzodiazepines Scrn [place] Urine Cocaine Screen Ur THC Screen Ethyl Alcohol COVID-19 Source SARS-CoV-2 (PCR) Patient ABO/Rh Antibody Screen Crossmatch Multi-Disciplinary Checklist Lines/Tubes CENTRAL LINE: no BATISTA: yes, Batista Day#: 0 ENDOTRACHEAL TUBE: no ICU Maintenance GLUCOSE 140-180mg/dL: yes NUTRITION AT GOAL: yes PRESSURE ULCER: no RESTRAINTS: yes, Reviewed Necessity: Yes ANTIBIOTICS(if yes, consider Stewardship): Yes Social Issues FAMILY UPDATED: yes PT/OT: no, Reason/Intervention: Not yet clinically appropriate GOALS/DISPOSITION/SUPERVISOR CURING ROOM: yes CODE STATUS: Full Prophylaxis DVT PROPHYLAXIS: yes GI PROPHYLAXIS: yes, Indication: Came in with anemia of unclear origin
[2021-11-19] MEDS: LORazepam 1 MG TAB PO (15:09)
[2021-11-19] MEDS: diazePAM 10 MG/2 ML SYR 2 MG IM (15:41)
[2021-11-19 16:13] LABS: Lab Add On Test DONE
[2021-11-19 16:40] LABS: Iron 17 ug/dL (50-170); Total Iron Binding Capacity 466 ug/dL (250-450); Transferrin Sat 4 % (15-50)
[2021-11-19 17:45] LABS: Ferritin 13 ng/mL (8-252); Vitamin B12 769 pg/mL (193-986)
[2021-11-19 18:01] LABS: Folate > 20.0 ng/mL (8.6-20.0)
[2021-11-19] MEDS: diazePAM 10 MG/2 ML SYR 5 MG IM ×3 (18:17→22:42)
--- NOTE | 2021-11-19 18:48 | NUR.NOTE ---
NursingED RN reports this unit was complete prior to the start of their shift at 0700-[place] RN should have dc'd mirella Vences Note:
[2021-11-19] MEDS: hydrOXYzine 25 MG/ML VIAL IM (20:22)
[2021-11-19] MEDS: QUEtiapine 100 MG TAB 150 MG PO (23:20)
[2021-11-19] MEDS: Melatonin 3 MG TAB PO (23:23)
[2021-11-20] VITALS (149 sets, daily range): BP systolic 109–182; BP diastolic 53–111; PULSE 79–115; RESP 17–40; TEMP 36–37; O2SAT 91–98
[2021-11-20] MEDS: hydrOXYzine 25 MG/ML VIAL IM ×2 (01:01→05:35)
[2021-11-20] MEDS: diazePAM 10 MG/2 ML SYR 5 MG IM (02:45)
[2021-11-20] MEDS: Normal Saline 1,000 ML 150 ML IV (03:07)
[2021-11-20] MEDS: Levothyroxine 50 MCG TAB PO (06:13)
[2021-11-20] MEDS: Normal Saline Flush 10 ML SYR IVP ×7 (06:13→18:12)
[2021-11-20 06:57] LABS: Abs Immature Grans 0.33 10^3/uL (0.0-0.06); HCT 27.8 % (36.0-46.0); HGB 8.4 g/dL (11.2-15.7); MCH 22.9 pg (27.0-33.0); MCHC 30.2 % (32.0-36.0); MCV 76 fL (80-95); MPV 9.7 fL (8.0-11.0); RBC 3.67 10^6/uL (3.93-5.22); RDW-SD 56.7 fL; WBC 18.53 10^3/uL (4.4-10.8)
[2021-11-20 07:18] LABS: ALT 18 U/L (14-59); AST 31 U/L (15-37); Albumin 3.1 g/dL (3.4-5.0); Alkaline Phosphatase 72 U/L (46-116); Anion Gap 12.4 mmol/L (3-11); BUN 21 mg/dL (7-18); Bilirubin, Total 0.4 mg/dL (0.2-1.0); CO2 18.6 mmol/L (21.0-32.0); CREATININE 1.3 mg/dL (0.55-1.02); Calcium 8.9 mg/dL (8.5-10.1); Chloride 118 mmol/L (98-107); Estimated GFR 39.21 (mL/min/1.73m2); Glucose 109 mg/dL (74-106); Potassium 3.7 mmol/L (3.5-5.1); Sodium 149 mmol/L (136-145); Total Protein 7.1 g/dL (6.4-8.2)
[2021-11-20 07:20] LABS: Absolute Basophil Count 0.19 10^3/uL (0.0-0.2); Absolute Eosinophil Count 0.19 10^3/uL (0.0-0.7); Absolute Lymphocyte Count 0.93 10^3/uL (1.2-3.4); Absolute Monocyte Count 1.11 10^3/uL (0.1-0.8); Absolute Neutrophil Count 15.75 10^3/uL (1.2-6.7); Bands % 8; Platelet Count 216 10^3/uL (130-400)
[2021-11-20 07:21] LABS: Anisocytosis 2+; Diff Comment Manual Differential; Hypochromasia 2+
[2021-11-20 07:22] LABS: Poikilocytes 2+
--- NOTE | 2021-11-20 08:32 | PGE_ITS ---
Date of Service Date of service: 11/20/21 Time of Service: 08:32 Assessment and Plan Assessment and plan (1) Pneumonia: Status: Acute Assessment and plan: Present on admission. I am concerned about the rising WBC. We verified with EMS - she did not get steroids. [place] toxicity can also cause leucocytosis as can andrew. We will procure ambulance records, recheck lithium level. Continue empiric azithromycin and ceftriaxone. Change IVF to D5W x 500 cc (hypernatremic), then no IVF, as she is euvolemic and eating/drinking. Await blood culture results (still pending), urine legionella/strep. Check urine legionella and strep. On 3.5L of O2 today. (2) Acute respiratory failure with hypoxia: Status: Acute Assessment and plan: Due to PNA, present on admission. As above. (3) Toxic metabolic encephalopathy: Status: Acute Assessment and plan: DDx: due to PNA, possible effect of supratherapeutic for her lithium level, dehydration/ITZEL, psychiatric causes, ?post-concussive. Mental status is improving, but still restless/confused. Continues to require restraints. Continue home psychiatric medications, prn valium. May require neurology and/or psychiatry consult. Known to [facility] psychiatry service. (4) Anemia: Status: Acute Assessment and plan: S/p 2 units pRBCs - H/H improved. No active bleeding. Microcytic. Has iron deficiency. B12/folate are actually high. Heme negative in the ED. May require outpatient GI workup. Continue to monitor hemoccults. Continue to monitor CBC. (5) Acute kidney injury superimposed on chronic kidney disease: Status: Resolved Assessment and plan: ?Dehydration vs lithium toxicity. Troponin at baseline. Hypernatremic today - change IVF to D5W x 500 ccs, then d/c as eating and drinking. Follow up chemistry at 2 pm. No evidence of obstructive uropathy on CT. Patient did not tolerate a batista catheter. Repeat UA. (6) Bipolar 2 disorder: Assessment and plan: Continue seroquel. Consider psychiatry consult (known to [facility] psych). Repeat lithium level. (7) Fall: Status: Acute Assessment and plan: PT/OT consult when mental status is more appropriate. (8) DVT prophylaxis: Status: Acute Assessment and plan: TEDs. No chemica DVT ppx given unclear etiology of her anemia. (9) Discharge planning issues: Status: Acute Assessment and plan: Full code (formerly DNR/DNI, but this was reversed by the daughter on admission). Would probably benefit from a palliative care consult and psychiatry consult when medical illness is better treated and mental status more appropriate. Daughter requests [facility] transfer for the psychiatric treatment, but she is not cleared from the medically stand point, there are no medical beds at [facility], and the patient does not have a medical need for transfer to a medical bed at [facility]. We will assess need for transfer to [facility] psychiatry if remains confused when her pneumonia is better treated. Transfer to med surg. Subjective Subjective Interval history since last seen: Ms Orosco is a little more coherent today, answering questions more sensically and following most of commands. She remains inattentive and forgetful. I cannot get clear answers to a lot of my questions, but she did deny pain and shortness of breath. Ms Orosco keeps saying that she can't understand why she cannot go home and that she wants to go home, despite me and nursing explaining several times that she has pneumonia and needs to be here. She is on 3.5 L of O2 saturating 96%. She pulled out her batista catheter yesterday and has been incontinent since. She was agitated last night and required IM valium and hydroxyzine. She is calmer today, but continues to be restless in bed and continues to require restraints. Exam Narrative Exam Narrative: General: Restless elderly female who is A&Ox1, still inattentive, but is more sensical HEENT: EOMI, MMM Heart: RRR, no m/r/g, mildly tachcyardic Lungs: Diminished breath sounds B Abdomen: soft, nontender, nondistended Extremities: no edema BLEs Objective Last Vital Signs Temp 36.5 C 11/20/21 07:27 Pulse 102 H 11/20/21 07:27 Resp 22 11/20/21 07:27 BP 143/76 H 11/20/21 07:27 Pulse Ox 94 11/20/21 07:22 Laboratory Results - last 24 hr 11/19/21 11/19/21 11/19/21 04:40 05:30 07:00 WBC RBC Hgb Hct MCV MCH MCHC RDW Plt Count MPV Immature Gran % Neutrophils % Band Neutrophils % Lymphocytes % Monocytes % Eosinophils % Basophils % Nucleated RBC % Absolute Neutrophils Absolute Lymphocytes Absolute Monocytes Absolute Eosinophils Absolute Basophils RBC Morphology Hypochromasia Poikilocytosis Anisocytosis PT INR Sodium Potassium Chloride Carbon Dioxide Anion Gap BUN Creatinine Estimated GFR/1.73 m2 Glucose Calcium Iron 17 L TIBC 466 H Transferrin % Sat 4 L Ferritin Total Bilirubin AST ALT Alkaline Phosphatase Total Protein Albumin Vitamin B12 Folate Add-On Test Request DONE Crossmatch See Detail 11/19/21 11/19/21 11/19/21 10:50 13:05 14:40 WBC RBC Hgb 7.4 L Hct 25.1 L MCV MCH MCHC RDW Plt Count MPV Immature Gran % Neutrophils % Band Neutrophils % Lymphocytes % Monocytes % Eosinophils % Basophils % Nucleated RBC % Absolute Neutrophils Absolute Lymphocytes Absolute Monocytes Absolute Eosinophils Absolute Basophils RBC Morphology Hypochromasia Poikilocytosis Anisocytosis PT 11.3 H INR 1.1 Sodium Potassium Chloride Carbon Dioxide Anion Gap BUN Creatinine Estimated GFR/1.73 m2 Glucose Calcium Iron TIBC Transferrin % Sat Ferritin 13 Total Bilirubin AST ALT Alkaline Phosphatase Total Protein Albumin Vitamin B12 769 Folate > 20.0 H Add-On Test Request Crossmatch 11/20/21 11/20/21 06:01 06:01 WBC 18.53 H RBC 3.67 L Hgb 8.4 L Hct 27.8 L MCV 76 L D MCH 22.9 L MCHC 30.2 L D RDW 21.0 H Plt Count 216 MPV 9.7 Immature Gran % See Differential Neutrophils % 77.0 Band Neutrophils % 8 Lymphocytes % 5.0 Monocytes % 6.0 Eosinophils % 1.0 Basophils % 1.0 Nucleated RBC % 0.0 Absolute Neutrophils 15.75 H Absolute Lymphocytes 0.93 L Absolute Monocytes 1.11 H Absolute Eosinophils 0.19 Absolute Basophils 0.19 RBC Morphology See Below Hypochromasia 2+ Poikilocytosis 2+ Anisocytosis 2+ PT INR Sodium 149 H D Potassium 3.7 Chloride 118 H Carbon Dioxide 18.6 L Anion Gap 12.4 H BUN 21 H Creatinine 1.3 H Estimated GFR/1.73 m2 39.21 Glucose 109 H Calcium 8.9 Iron TIBC Transferrin % Sat Ferritin Total Bilirubin 0.4 AST 31 ALT 18 Alkaline Phosphatase 72 Total Protein 7.1 Albumin 3.1 L Vitamin B12 Folate Add-On Test Request Crossmatch Multi-Disciplinary Checklist Lines/Tubes CENTRAL LINE: no ARTERIAL LINE: no BATISTA: no ENDOTRACHEAL TUBE: no ICU Maintenance GLUCOSE 140-180mg/dL: no, Reason/Intervention: not diabetic NUTRITION AT GOAL: yes PRESSURE ULCER: no RESTRAINTS: yes, Reviewed Necessity: Yes ANTIBIOTICS(if yes, consider Stewardship): Yes Social Issues FAMILY UPDATED: yes PT/OT: no, Reason/Intervention: not yet clinically appropriate GOALS/DISPOSITION/BRICK LOADER: yes CODE STATUS: Full (palliative care consulted.) Prophylaxis DVT PROPHYLAXIS: yes GI PROPHYLAXIS: yes,
[2021-11-20] MEDS: AZITHROMYCIN 500 MG in Normal Saline 250 ML 250 MG IVPB (09:01)
[2021-11-20] MEDS: Multivitamin TAB 1 TAB PO (09:02)
[2021-11-20] MEDS: Folic Acid 1 MG TAB PO (09:02)
[2021-11-20] MEDS: Pantoprazole 40 MG VIAL IVP ×2 (09:13→18:12)
--- NOTE | 2021-11-20 09:48 | NUR.NOTE ---
Per MD order, RN contacts [facility] to determine if any medications were given to patient on route to hospital. [facility] informs RN only 02 was delivered and no other medications.Nursing Note:
[2021-11-20 10:46] LABS: Bilirubin Negative (Negative); Blood Moderate (Negative); Clarity Clear (Clear); Glucose Negative (Negative); Ketones Negative (Negative); Leukocyte Esterase Negative (Negative); Nitrite Negative (Negative); Urobilinogen 0.2 EU/dL (Up TO 0.2)
[2021-11-20] MEDS: DEXTROSE 5%-WATER 1,000 ML 100 ML IV (10:48)
[2021-11-20 11:00] LABS: Bacteria Rare HPF (Negative); Crystals Negative HPF (Negative); Epithelial Cells Few HPF (Negative); Mucus Trace (Negative); WBC 0-2 HPF (0-5)
[2021-11-20 11:01] LABS: C & S Indicated? No; Casts 0-2 Fine Granular LPF (Negative)
--- NOTE | 2021-11-20 11:37 | NUR.NOTE ---
RN attempts to give patient 1mg of Ativan PO. Patient refuses.Nursing Note:
[2021-11-20] MEDS: diazePAM 10 MG/2 ML SYR 2 MG IVP ×2 (11:59→15:38)
--- NOTE | 2021-11-20 12:02 | NUR.NOTE ---
Patient given 2mg of Diazepam IVP for severe agitation.Nursing Note:
--- NOTE | 2021-11-20 12:40 | INITIAL_ITS ---
- If Service Date Differs Date of service: 11/20/21 Time of Service: 12:40 Care Management Initial Assess REASON FOR HOSPITALIZATION:: Severe anemia, ITZEL, left pneumonia with hypoxemia. PAST MEDICAL HISTORY/PAST SURGICAL HISTORY:: All Active Problems: Hypoxemia (Acute), ITZEL (acute kidney injury) (Acute), Anemia (Acute), Fall (Acute), Altered mental status (Acute),. Pneumonia (Acute), Asymmetrical sensorineural hearing loss (Acute),. Anxiety (Chronic), Sensorineural hearing loss, bilateral (Acute), Knee pain, right (Acute), Hip pain, right (Acute), Anemia (Chronic), Acute kidney injury superimposed on chronic kidney disease (Acute), Encephalopathy acute (Acute), Multiple fractures of ribs (Acute 12/09/13), Hearing loss (Chronic), Chronic kidney disease, stage III (moderate) (Chronic 09/26/11) - 08/25/2016 [facility] nephro consult: JOSE-I or ARB not recommended for this pt, DJD (degenerative joint disease), lumbar (Acute 12/26/13) - x-ray 12/2013, DVT (deep venous thrombosis) (Acute 12/08/13) - 09/2013 L at OSH, (confirmed 11/2013 [facility] pt off therapy) - RX Xarelto, Depressive disorder (Acute 11/11/12) - Dr. Esther Heath, Psychiatrist - Multiple hospitalizations - Psych dx's: unipolar vs. bipolar 2 depression, multiple episodes of delirium i n response to medications in the past during previous hospitalizations, Essential hypertension (Chronic 10/01/12), Heartburn (Acute 11/11/12), Hyperlipidemia (Acute 11/11/12) - TLCs, Lumbar scoliosis (Acute 12/26/13) - X- ray 12/2013; moderate L convex lumbar scoliosis, Urge incontinence of urine (Acute 11/11/12). M. 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 From multiple month hospitalization 2013, Major depressive disorder (Chronic 05/10/13) - With agitation. With Catatonia. S/P multiple psychiatric admissions. On [place], Lorazepam, Nortriptyline and Quetiapine as an out-patient, unclear doses., Hypertension (Chronic),. Hyperlipidemia (Chronic), Hypothyroidism (Chronic), and Constipation (Chronic). Medical History: Bipolar 2 disorder (01/30/17) - Per Dr. Heath, with severe treatment resistant dpressive phases vs treatment resistant depression 01/25/17 [facility], CKD (chronic kidney disease), Deep vein thrombosis (12/08/13), GERD (gastroesophageal reflux disease), HLD (hyperlipidemia), HTN (hypertension), Hypothyroidism (11/11/12), and. Tardive dyskinesia (04/17/16) - Dr. Esther Heath - Dose reductions in the past have led to severe relapse of psychotic depression. Surgical History: S/P ORIF (open reduction internal fixation) fracture. PREVIOUS FUNCTIONAL STATUS/SOCIAL/FAMILY SUPPORTS:: Stacy lives in [facility] with her , Lalito. Her and daughter, Lluvia Briceno, are her legal guardians and provide her care at home. Stacy has diagnoses of Bipolar Disorder 2 and dementia. CURRENT FUNCTIONAL STATUS:: Stacy is lying in bed when CM comes to meet with her. She is restless, confused and unable to answer questions. Per provider, the need for a transfer to [facility] psychiatry will be assessed when Stacy' medical issues are under better control. CM will continue to follow. ADVANCE DIRECTIVES:: On file; , Lalito Orosco, is appointed as Health Care Agent. Has patient been provided with info about the portal/API?: No Did the patient sign up for the portal?: No CODE STATUS:: Full Code INSURANCE COVERAGE / FINANCIAL ISSUES:: [facility] [employer] and Medicare. CURRENT HOME/COMMUNITY SERVICES/EQUIPMENT:: Stacy sees Dr. Cardenas at [facility] for medication management. PRIMARY CARE PHYSICIAN:: Patricia Goss NP ([facility]). POTENTIAL DISCHARGE NEEDS:: Evaluation for further needs and placement, follow up appointments, and potential transfer to [facility] psychiatric services. PATIENT/FAMILY EDUCATION NEEDS:: Review discharge instructions and discuss Ask Me Three. ANTICIPATED BARRIERS TO DISCHARGE:: Patient's mental status and agitation level. TRANSPORTATION:: To be determined by disposition. PLAN:: Plan is undetermined at this time as it is dependent on Stacy' progress. She continues to be closely monitored and treated. Stacy may require transfer to [facility] for ECT treatment. CM will continue to follow.
--- NOTE | 2021-11-20 13:16 | NUR.NOTE ---
Patient is visited by her , daughter, son, [id number] and sister. Patient is quite agitated. RN calls MD to get additional order for sedating medication. RN speaks to RING STAMPER. RING STAMPER orders 5mg of Valium IVP.Nursing Note:
--- NOTE | 2021-11-20 13:57 | NUR.NOTE ---
Payan catheter is placed. Patient puts ouit 775ml of clear yellow urine.Nursing Note:
[2021-11-20] MEDS: diazePAM 10 MG/2 ML SYR 5 MG IVP ×3 (14:12→17:54)
--- NOTE | 2021-11-20 14:14 | NUR.NOTE ---
Patient given 5mg of Diazepam IVP.Nursing Note:
--- NOTE | 2021-11-20 14:15 | NUR.NOTE ---
Patient is more calm now that 775ml of urine has been unloaded from bladder via batista catheter.Nursing Note:
--- NOTE | 2021-11-20 15:07 | NUR.NOTE ---
Patient too confused to take PO medication at this time but is more relaxed.Nursing Note:
[2021-11-20 15:41] LABS: Anion Gap 12.9 mmol/L (3-11); BUN 17 mg/dL (7-18); CO2 19.1 mmol/L (21.0-32.0); CREATININE 1.2 mg/dL (0.55-1.02); Calcium 9.1 mg/dL (8.5-10.1); Chloride 113 mmol/L (98-107); Estimated GFR 43.01 (mL/min/1.73m2); Glucose 89 mg/dL (74-106); Potassium 3.9 mmol/L (3.5-5.1); Sodium 145 mmol/L (136-145)
[2021-11-20 15:46] LABS: Creatine Kinase 731 U/L (26-192)
[2021-11-20 15:59] LABS: Lithium 0.3 mmol/l (0.6-1.2)
[2021-11-20 16:11] LABS: Iron 7 ug/dL (50-170); Total Iron Binding Capacity 430 ug/dL (250-450); Transferrin Sat 2 % (15-50)
[2021-11-20] MEDS: LORazepam 1 MG TAB PO (17:55)
[2021-11-20] MEDS: Lactated Ringers 1,000 ML 100 ML IV (17:55)
[2021-11-20] MEDS: Bisacodyl 5 MG TABEC PO (18:11)
[2021-11-20] MEDS: QUEtiapine 100 MG TAB 150 MG PO (18:11)
[2021-11-20 19:25] LABS: Legionella Ag Detection Urine Negative (Negative)
[2021-11-20] MEDS: IRON SUCROSE COMPLEX 300 MG in Normal Saline 250 ML 167 MG IVPB (19:28)
[2021-11-21] VITALS (86 sets, daily range): BP systolic 106–145; BP diastolic 47–90; PULSE 81–158; RESP 14–37; TEMP 36.7–37.4; O2SAT 84–98
--- NOTE | 2021-11-21 | DI.RAD_ITS ---
Exam(s) XR KNEE RT 2V AP,LAT EXAM: XR KNEE RT 2V AP,LAT CLINICAL HISTORY: R knee pain, s/p fall. TECHNIQUE: 2D digital imaging was performed. COMPARISON: CR XR KNEE RT 3V AP,LAT,RAINE from 04/09/2020 FINDINGS: Two views No evidence of fracture nor obvious joint effusion. No joint space narrowing. No osteophytes. Bone density is age-appropriate. IMPRESSION: No significant radiograph findings in these two views of the right knee DATA REPOSITORY: RADIATION DOSE DELIVERED:
--- NOTE | 2021-11-21 | DI.US_ITS ---
APPROVED REPORT EXAM: Comprehensive 2D, Doppler, and color-flow Echocardiogram Patient Location: In-Patient Room/Bed: [id number] Skip Hoist Engineer: Caitlyn Romeo RDCS (AE) Indications: A Fib Other Information Study Quality: Adequate. Technically limited study due to inability to position patient exam done sup ine. Conclusion Normal left ventricular wall thickness and chamber size. Estimated ejection fraction is 59%. Wall m otion is normal Normal right ventricular size and systolic function The left atrium is borderline dilated. Right atrium is normal in size Trileaflet aortic valve without stenosis or regurgitation Mitral annular calcification. Trace mitral regurgitation Normal tricuspid valve with mild to moderate regurgitation. Estimated right ventricular systolic pre ssure is 33 mmHg Dilated ascending aorta measuring 3.71 cm Wall motion Left Ventricle The left ventricle is normal size. The left ventricular systolic function is normal. The left ventric ular ejection fraction is within the normal range. There is normal left ventricular wall thickness. T here is normal LV segmental wall motion. There is no ventricular septal defect visualized. LVEF is 59 %. Right Ventricle The right ventricle is normal size. The right ventricular systolic function is normal. The RVSP is 33 .5 mmHg. Atria Left atrium is borderline dilated. The right atrium size is normal. The interatrial septum is intact with no evidence for an atrial septal defect. Aortic Valve The aortic valve is normal in structure. Aortic valve is trileaflet. There is no aortic valvular sten osis. No aortic regurgitation is present. Mitral Valve Moderate mitral annular calcification. No evidence of mitral valve stenosis. Trace mitral regurgitati on. Tricuspid Valve The tricuspid valve is normal in structure. There is no tricuspid valve stenosis. Mild to moderate tr icuspid regurgitation. Pulmonic Valve The pulmonary valve is normal in structure. There is no pulmonic valvular stenosis. There is no pulmo gil valvular regurgitation. Great Vessels The aortic root is normal in size. The ascending aorta is moderately dilated. Ascending aorta is not well visualized. IVC is normal in size and collapses >50% with inspiration. Pericardium There is no pericardial effusion. 2D Dimensions IVSD d PLAX 0.90 cm F: 0.6-1.0 LV Vol A2C d MOD 63.2 mL LVPW d PLAX 0.90 cm F: 0.6 - 1.0 LV Vol A4C d MOD 68.9 mL LVID d PLAX 4.52 cm F: 3.8 - 5.2 LA vol/ BSA A2C s A-L 28.3 mL/m2 LVDs 3.15 cm F: 2.2 - 3.5 LA vol/ BSA A4C s A-L 31.2 mL/m2 Ao Root d 2.98 cm F: 2.7 - 3.3 LA Vol/ BSA Biplane s A-L 30.8 mL/m2 RA Area A4C 17.58 cm2 LA Area A4C s MOD 18.68 cm2 RA Vol/ BSA A4C s A-L 30.5 mL/m2 LA Area A2C s MOD 17.18 cm2 Ao Asc Diam d 3.71 cm F: 2.3 - 3.1 LV EF A4C MOD 58.6 % LV EF Teichholz 57.2 % LV EF A2C MOD 59.9 % LVEF (Mistry's) 58.81 % F: 54 - 74 LV EF Biplane MOD 58.8 % LV Volume 54.68 mL F: 46 - 106 SV 39.48 mL LV Volume Index 34.38 mL/m2 F: 29 - 61 SV Index 24.84 mL/m2 LV Vol Biplane MOD 67.1 mL FS 29.90 % M-Mode TAPSE 1.84 cm (M/F) >1.7 LV Diastology MV E' medial 0.067 (>0.07 m/s) E/A Ratio 0.9 LV E/e MED 17.70 (<14) MV E Vmax 1.18 (0.4-1.3 m/s) MV E' lateral 0.073 (>0.1 m/s) MV A Vmax 1.25 (0.4-1.3 m/s) LV E/e LAT 16.10 (<14) MV E/A Ratio 0.93 MV E/E' medial 17.70 MV E/E' lateral 16.13 Aortic Valve LVOT Area 3.03 cm2 AoV Area Vmax 2.39 cm2 LVOT Vmax 1.34 m/s AoV Area/ BSA (Vmax) 1.50 cm2/m2 LVOT Mean Vikas. 0.88 m/s CINDY Mean Vikas. 2.23 cm2 LVOT Peak Grad 7.1 mmHg CINDY Mean Vikas. Index 1.40 cm2/m2 LVOT Mean Grad 3.7 mmHg LVOT VTI 0.265 m LVOT Diam s 1.95 cm AoV Vmax 1.69 m/s Velocity Ratio 0.79 AoV Mean Vikas. 1.20 m/s AoV Peak Grad 11.5 mmHg LVOT SV 80.35 mL AoV Mean Grad 6.3 mmHg AoV VTI 0.288 m AoV Area VTI 2.79 cm2 AoV Area/ BSA (VTI) 1.76 cm/m2 Mitral Valve MV DT 254 (160-240 msec) MV PHT 74 msec MV Area PHT 2.98 cm2 MV VTI 0.364 m MV Area VTI 2.21 (4.0-6.0 cm2) Pulmonary Valve PV Vmax 0.85 (0.5-1.5 m/s) RVOT Peak Gr. 1.49 mmHg PV Peak Grad 2.9 mmHg RVOT Mean Gr. 0.90 mmHg PV Mean Grad 1.7 mmHg RVOT VTI 0.130 m PV VTI 0.154 m RVOT Vmax 0.61 m/s Tricuspid Valve TR Peak Grad 30.5 mmHg TR Vmax 2.76 m/s RA Pressure 3.00 mmHg RVSP (TR) 33.5 mmHg
[2021-11-21] MEDS: diazePAM 10 MG/2 ML SYR 5 MG IVP ×4 (05:07→23:52)
[2021-11-21] MEDS: Levothyroxine 50 MCG TAB PO (05:07)
[2021-11-21] MEDS: LORazepam 1 MG TAB PO (05:22)
[2021-11-21] MEDS: Lactated Ringers 1,000 ML 100 ML IV (05:27)
[2021-11-21 07:07] LABS: Metamyelocytes % 2
[2021-11-21 08:31] LABS: Abs Immature Grans 0.41 10^3/uL (0.0-0.06); Absolute Basophil Count 0.05 10^3/uL (0.0-0.2); Absolute Eosinophil Count 0.35 10^3/uL (0.0-0.7); Absolute Monocyte Count 0.66 10^3/uL (0.1-0.8); Absolute Neutrophil Count 15.42 10^3/uL (1.2-6.7); Basophils % 0.3; Eosinophils % 1.9; HCT 27.9 % (36.0-46.0); HGB 8.2 g/dL (11.2-15.7); Immature Grans % 2.2; Lymphocytes % 7.4; MCH 22.2 pg (27.0-33.0); MCHC 29.4 % (32.0-36.0); MCV 76 fL (80-95); MPV 9.7 fL (8.0-11.0); Monocytes % 3.6; Neutrophils % 84.6; Platelet Count 225 10^3/uL (130-400); RBC 3.69 10^6/uL (3.93-5.22); RDW 21.4 % (11.7-14.6); RDW-SD 57.9 fL; WBC 18.23 10^3/uL (4.4-10.8)
[2021-11-21 08:36] LABS: Absolute Lymphocyte Count 1.35 10^3/uL (1.2-3.4)
[2021-11-21 08:45] LABS: Anisocytosis 2+; Diff Comment RBC Morph Reviewed; Hypochromasia 1+
[2021-11-21 08:49] LABS: Lithium < 0.2 mmol/l (0.6-1.2)
--- NOTE | 2021-11-21 08:51 | W.PM.PROGNOT ---
Date of Service Date of service: 11/21/21 Time of Service: 08:52 Assessment and Plan Assessment and plan (1) Sepsis: Status: Acute Assessment and plan: Due to PNA, present on admission. Change abx to unasyn + azithromycin due to concerns for possible aspiration (has a hiatal hernia) and because WBC went up and is not coming down. Consider repeat imaging and blood cultures. (2) Rapid atrial fibrillation: Status: Acute Assessment and plan: Did not respond to IV metoprolol. Will trial cardizem bolus and drip. Obtain serial troponins, echo. (3) Pneumonia: Status: Acute Assessment and plan: Present on admission. As above On 4L of O2 today and not as tachypneic. (4) Acute respiratory failure with hypoxia: Status: Acute Assessment and plan: Due to PNA, present on admission. As above. 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 Actually doing better today than she was yesterday. Continue scheduled and prn benzodiazepines. If becomes rigid, the concern for malignant catatonia would warrant a transfer to [facility] for emergent ECT. It is reassuring that her CPK is down today. Appreciate Dr Beach phone recommendations yesterday. (6) Anemia: Status: Acute Assessment and plan: S/p 2 units pRBCs - H/H improved. No active bleeding. Microcytic. Has iron deficiency. B12/folate are actually high. Heme negative in the ED. S/p venofer yesterday. May require outpatient GI workup. Continue to monitor hemoccults. Continue to monitor CBC. (7) Acute kidney injury superimposed on chronic kidney disease: Status: Resolved Assessment and plan: ?Dehydration vs lithium toxicity. Troponin at baseline. Sodium normalized - d/c IVF and encourage PO fluids. No evidence of obstructive uropathy on CT. Garcia catheter had to be reinserted for urinary retentioN (>950 ccs came out). (8) Bipolar 2 disorder: Assessment and plan: Continue seroquel. Read discussion above (9) Fall: Status: Acute Assessment and plan: PT/OT consult when mental status is more appropriate. (10) DVT prophylaxis: Status: Acute Assessment and plan: TEDs. No chemica DVT ppx given unclear etiology of her anemia. (11) Discharge planning issues: Status: Acute Assessment and plan: Full code (formerly DNR/DNI, but this was reversed by the daughter on admission). Palliative care and psychiatry consulted. May require transfer to [facility] if becomes rigid and/or behaviors escalate. Back in the ICU, which she continues to require. Not requiring restraints at this time. Discussed with Dr Roldan. Total Critical Care Time 40 minutes. Subjective Subjective Interval history since last seen: Transferred back to the ICU yesterday afternoon due to escalating agitation/restlessness. However, doing better since beginning on scheduled diazepam. Ms Orosco is sleeping this morning. She was restless earlier and did get the ativan in addition to the IV valium. She is saturating in the 90s on 4L of O2 by NC. She went into rapid Afib this morning with HRs in 150s. She is not able to answer questions at this time; when she was awake, per nursing, her speech was garbled. Restraints off since 2 am. Exam Narrative Exam Narrative: General: Elderly female is asleep, not tachypneic HEENT: EOMI, MMM Heart: irregularly irregular rhythm, no m/r/g Lungs: Diminished breath sounds B Abdomen: soft, nontender, nondistended Extremities: no edema BLEs Objective Last Vital Signs Temp 37.4 C 11/21/21 08:00 Pulse 100 H 11/21/21 08:00 Resp 18 11/21/21 08:00 BP 132/55 L 11/21/21 08:00 Pulse Ox 91 L 11/21/21 08:00 Laboratory Results - last 24 hr 11/19/21 11/19/21 11/20/21 05:30 16:55 06:01 WBC RBC Hgb Hct MCV MCH MCHC RDW Plt Count MPV Immature Gran % Neutrophils % Lymphocytes % Monocytes % Eosinophils % Basophils % Metamyelocytes % 2 Nucleated RBC % Absolute Neutrophils Absolute Lymphocytes Absolute Monocytes Absolute Eosinophils Absolute Basophils RBC Morphology Hypochromasia Anisocytosis Sodium Potassium Chloride Carbon Dioxide Anion Gap BUN Creatinine Estimated GFR/1.73 m2 Glucose Calcium Magnesium Iron TIBC Transferrin % Sat Creatine Kinase Urine Color Urine Clarity Urine pH Ur Specific [place] Urine Protein Urine Ketones Urine Blood Urine Nitrite Urine Bilirubin Urine Urobilinogen Ur Leukocyte Esterase Urine RBC Urine WBC Ur Epithelial Cells Urine Crystals Urine Bacteria Urine Casts Urine Mucus Ur Culture Indicated? Urine Glucose [place] Urine Legionella Ag Negative Crossmatch See Detail 11/20/21 11/20/21 11/20/21 10:30 15:15 15:15 WBC RBC Hgb Hct MCV MCH MCHC RDW Plt Count MPV Immature Gran % Neutrophils % Lymphocytes % Monocytes % Eosinophils % Basophils % Metamyelocytes % Nucleated RBC % Absolute Neutrophils Absolute Lymphocytes Absolute Monocytes Absolute Eosinophils Absolute Basophils RBC Morphology Hypochromasia Anisocytosis Sodium 145 Potassium 3.9 Chloride 113 H Carbon Dioxide 19.1 L Anion Gap 12.9 H BUN 17 Creatinine 1.2 H Estimated GFR/1.73 m2 43.01 Glucose 89 Calcium 9.1 Magnesium Iron TIBC Transferrin % Sat Creatine Kinase Urine Color Yellow Urine Clarity Clear Urine pH 7.0 Ur Specific [place] 1.020 Urine Protein Trace H Urine Ketones Negative Urine Blood Moderate H Urine Nitrite Negative Urine Bilirubin Negative Urine Urobilinogen 0.2 Ur Leukocyte Esterase Negative Urine RBC 5-10 H Urine WBC 0-2 Ur Epithelial Cells Few Urine Crystals Negative Urine Bacteria Rare Urine Casts 0-2 Fine Granular Urine Mucus Trace Ur Culture Indicated? No Urine Glucose Negative [place] 0.3 L Urine Legionella Ag Crossmatch 11/20/21 11/20/21 11/21/21 15:15 15:15 08:23 WBC RBC Hgb Hct MCV MCH MCHC RDW Plt Count MPV Immature Gran % Neutrophils % Lymphocytes % Monocytes % Eosinophils % Basophils % Metamyelocytes % Nucleated RBC % Absolute Neutrophils Absolute Lymphocytes Absolute Monocytes Absolute Eosinophils Absolute Basophils RBC Morphology Hypochromasia Anisocytosis Sodium Potassium Chloride Carbon Dioxide Anion Gap BUN Creatinine Estimated GFR/1.73 m2 Glucose Calcium Magnesium 2.0 Iron 7 L TIBC 430 Transferrin % Sat 2 L Creatine Kinase 731 H Urine Color Urine Clarity Urine pH Ur Specific [place] Urine Protein Urine Ketones Urine Blood Urine Nitrite Urine Bilirubin Urine Urobilinogen Ur Leukocyte Esterase Urine RBC Urine WBC Ur Epithelial Cells Urine Crystals Urine Bacteria Urine Casts Urine Mucus Ur Culture Indicated? Urine Glucose [place] Urine Legionella Ag Crossmatch 11/21/21 11/21/21 08:23 08:23 WBC 18.23 H RBC 3.69 L Hgb 8.2 L Hct 27.9 L MCV 76 L MCH 22.2 L MCHC 29.4 L D RDW 21.4 H Plt Count 225 MPV 9.7 Immature Gran % 2.2 Neutrophils % 84.6 Lymphocytes % 7.4 Monocytes % 3.6 Eosinophils % 1.9 Basophils % 0.3 Metamyelocytes % Nucleated RBC % 0.0 Absolute Neutrophils 15.42 H Absolute Lymphocytes 1.35 Absolute Monocytes 0.66 Absolute Eosinophils 0.35 Absolute Basophils 0.05 RBC Morphology See Below Hypochromasia 1+ Anisocytosis 2+ Sodium Potassium Chloride Carbon Dioxide Anion Gap BUN Creatinine Estimated GFR/1.73 m2 Glucose Calcium Magnesium Iron TIBC Transferrin % Sat Creatine Kinase Urine Color Urine Clarity Urine pH Ur Specific [place] Urine Protein Urine Ketones Urine Blood Urine Nitrite Urine Bilirubin Urine Urobilinogen Ur Leukocyte Esterase Urine RBC Urine WBC Ur Epithelial Cells Urine Crystals Urine Bacteria Urine Casts Urine Mucus Ur Culture Indicated? Urine Glucose [place] < 0.2 L Urine Legionella Ag Crossmatch Objective Narrative Objective Narrative: EKG P Multi-Disciplinary Checklist Lines/Tubes CENTRAL LINE: no ARTERIAL LINE: no GARCIA: yes, Garcia Day#: 1 Note: reinserted on 11/20/21 ENDOTRACHEAL TUBE: no ICU Maintenance GLUCOSE 140-180mg/dL: yes NUTRITION AT GOAL: yes PRESSURE ULCER: no RESTRAINTS: no ANTIBIOTICS(if yes, consider Stewardship): Yes Social Issues FAMILY UPDATED: yes PT/OT: no, Reason/Intervention: not clinically appropriate GOALS/DISPOSITION/CAR SHAGGER: yes CODE STATUS: Full (palliative care consulted as COLST form was reversed) Prophylaxis DVT PROPHYLAXIS: yes GI PROPHYLAXIS: yes, Indication: anemia of unclear source
[2021-11-21] MEDS: Metoprolol 5 MG/5 ML VIAL IVP (09:11)
[2021-11-21 09:12] LABS: Anion Gap 11.5 mmol/L (3-11); BUN 16 mg/dL (7-18); CO2 18.5 mmol/L (21.0-32.0); CREATININE 1.2 mg/dL (0.55-1.02); Calcium 8.9 mg/dL (8.5-10.1); Chloride 115 mmol/L (98-107); Estimated GFR 43.01 (mL/min/1.73m2); Glucose 97 mg/dL (74-106); Sodium 145 mmol/L (136-145)
[2021-11-21] MEDS: Normal Saline Flush 10 ML SYR IVP ×4 (09:17→23:56)
[2021-11-21] MEDS: Pantoprazole 40 MG VIAL IVP ×2 (09:18→20:28)
[2021-11-21 09:24] LABS: Creatine Kinase 235 U/L (26-192)
[2021-11-21 09:32] LABS: Troponin I < 50 ng/L (<or=60)
[2021-11-21] MEDS: dilTIAZem 25 MG/5 ML VIAL 10 MG IVP (09:51)
[2021-11-21] MEDS: dilTIAZem 125 MG in Normal Saline 100 ML IV (09:59)
[2021-11-21] MEDS: POTASSIUM CHLORIDE 20 MEQ/100 ML BAG 50 MEQ IVPB ×4 (10:52→15:53)
[2021-11-21] MEDS: AMPICILLIN/SULBACTAM 3 GM in Normal Saline 100 ML IVPB ×2 (10:53→21:43)
--- NOTE | 2021-11-21 11:05 | PDOC.CMPRO ---
- If Service Date Differs Date of service: 11/21/21 Time of Service: 11:05 Care Management Progress Note S/O: Stacy was having an echo today when CM attempted to visit. CM met with her daughter, Lluvia, briefly, and discussed Stacy having a Palliative care meeting today. CM stressed the importance of her being at the visit, as Stacy is not able to communicate well at this time. Lluvia is advocating for her mother to be transferred to [facility], which has attempted, awaiting a response. CM will continue to follow. A: Stacy is an 81 year old female admitted to [facility] on 11/19/21 with severe anemia, ITZEL, L pneumonia w/hypoxemia. P: Plan is undetermined at this time as it is dependent on Stacy' progress. She continues to be closely monitored and treated. Stacy may require transfer to [facility] for ECT treatment. CM will continue to follow.
[2021-11-21] MEDS: AZITHROMYCIN 500 MG in Normal Saline 250 ML 250 MG IVPB (11:20)
[2021-11-21] MEDS: Acetaminophen 325 MG TAB 650 MG PO (12:55)
[2021-11-21 12:58] LABS: Troponin I < 50 ng/L (<or=60)
--- NOTE | 2021-11-21 14:52 | PCNE_ITS ---
Date of service: 11/21/21 Time of Service: 14:00 History of Present Illness Narrative: Ms. Kumar is an 81 y/o F currently inpatient in ICU at [facility] 2/2 sepsis r/t PNA; PMHx sig for bipolar d/o, CKD, A fib, HTN, HLD Patient sleeping comfortably at time of visit, no acute distress no groaning or grimacing Patient legal guardian and daughter Lluvia unable for inperson PC visit, unavailable by telephone today, will attempt to call again PC consult to discuss CODE STATUS, patient was previously DNR DNI however was reversed by daughter to full code on this admission; review of advanced directive from 2012 patient selects if terminal condition w/imminent preference for [employer] and natural , if in persistent vegetative state preference for [employer] and natural , if at end-stage condition that is incurable that has already resulted in loss of capacity and complete dependency preference for [employer] and natural , pain relief no matter condition, preference for hospice care as appropriate Staff report patient with increased anxiousness and restlessness with face care, including nasal cannula, due to psych history; f/b [facility] psych No discharge plans at this time. Patient previously lives in [facility] with Lalito; daughter Lluvia is legal guardian Hospital course: presented to [facility] ED on 11/19/21 w/CC agitation and altered MS; work up in ED found PNA, admitted to ICU; chronic anemia, heme-neg stool on rectal exam, found to be hypoxic and hypotensive w/ITZEL: 11/21/21 sepsis d/t PNA, abx changed to Unasyn and azithromycin f/b [facility] psych, consider consult or transfer to [facility] Assessment and Plan Assessment and plan (1) Sepsis: Status: Acute Assessment and plan: d/t PNA; continue Unasyn and azithromycin, concerns for possible aspiration consider repeat imaging/blood cultures (2) Pneumonia: Status: Acute Assessment and plan: continue 4L O2, continue abx as above (3) Anxiety: Status: Chronic Assessment and plan: increased w/face care/NC and oxygen requirement; continue PRN/scheduled benzodiazepine f/b [facility] psych (4) Bipolar 2 disorder: Assessment and plan: f/b [facility]; lithium levels today <0.2 continue Seroquel psych consult pending, consider transfer to [facility] pending escalation; (5) Full code status: Status: Acute Assessment and plan: pt had previously been DNR/I, unclear of switch to Full code - attempted to call daughter/legal guardian, DNA, will attempt to call back previous AD review from 2013: terminal condition w/imminent preference for [employer] and natural , if in persistent vegetative state preference for [employer]CH[employer] and natural , if at end-stage condition that is incurable that has already resulted in loss of capacity and complete dependency preference for [employer] and natural , pain relief no matter condition, preference for hospice care as appropriate palliative to continue to follow through admission Review of Systems Narrative: unobtainable d/t mental condition and pt sleeping PFSH All Active Problems (Updated 11/21/21 @ 15:17 by Mackenzie Dos Santos NP) Full code status (Acute) Rapid atrial fibrillation (Acute) Sepsis (Acute) Discharge planning issues (Acute) DVT prophylaxis (Acute) Acute respiratory failure with hypoxia (Acute) Toxic metabolic encephalopathy (Acute) Hypoxemia (Acute) ITZEL (acute kidney injury) (Acute) Anemia (Acute) Fall (Acute) Altered mental status (Acute) Pneumonia (Acute) Asymmetrical sensorineural hearing loss (Acute) Anxiety (Chronic) Sensorineural hearing loss, bilateral (Acute) Knee pain, right (Acute) Hip pain, right (Acute) Anemia (Chronic) Acute kidney injury superimposed on chronic kidney disease (Acute) Encephalopathy acute (Acute) Multiple fractures of ribs (Acute 12/09/13) Hearing loss (Chronic) Chronic kidney disease, stage III (moderate) (Chronic 09/26/11) 08/25/2016 [facility] nephro consult: JOSE-I or ARB not recommended for this pt DJD (degenerative joint disease), lumbar (Acute 12/26/13) x-ray 12/2013 DVT (deep venous thrombosis) (Acute 12/08/13) 09/2013 L at OSH, (confirmed 11/2013 [facility] pt off therapy) RX Xarelto Depressive disorder (Acute 11/11/12) Dr. Esther Heath, Psychiatrist Multiple hospitalizations Psych dx's: unipolar vs. 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 With Catatonia. S/P multiple psychiatric admissions. On [place], Lorazepam, Nortriptyline and Quetiapine as an out-patient, unclear doses. Hypertension (Chronic) Hyperlipidemia (Chronic) Hypothyroidism (Chronic) Constipation (Chronic) Medical History Bipolar 2 disorder (01/30/17) Per Dr. 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 Surgical History S/P ORIF (open reduction internal fixation) fracture Family History Brother Heart disease Stroke Brother Heart disease Dementia Father Throat cancer Mother Dementia Other Hypertension Social History Smoking/Tobacco Use Status: Never Smoking risk assessment performed?: Yes Alcohol Intake: former Drug use: Never Substance use type: does not use Number of Children: 2 Pets and animals: Yes Pets and animals: cat(s) Current gender identity: female What type of physical activity do you participate in: walking Frequency: daily Seatbelt use: always Do you feel safe at home: Yes Do you feel safe in your relationship?: Yes Exam Narrative Exam Narrative: pt sleeping comfortably in ICU at time of visit NAD, comfortable respirations regular and even, unlabored, no audible wheeze or cough no grimace/groan, no burrowed face Results Last Vital Signs Temp 99.3 F 11/21/21 08:00 Pulse 84 11/21/21 10:15 Resp 27 H 11/21/21 10:15 BP 127/65 11/21/21 10:15 Pulse Ox 93 11/21/21 10:15 Labs Result diagrams: 11/21/21 08:23 11/21/21 08:23 Labs: Laboratory Results - last 24 hr 11/19/21 11/19/21 11/20/21 05:30 16:55 06:01 WBC RBC Hgb Hct MCV MCH MCHC RDW Plt Count MPV Immature Gran % Neutrophils % Lymphocytes % Monocytes % Eosinophils % Basophils % Metamyelocytes % 2 Nucleated RBC % Absolute Neutrophils Absolute Lymphocytes Absolute Monocytes Absolute Eosinophils Absolute Basophils RBC Morphology Hypochromasia Anisocytosis Sodium Potassium Chloride Carbon Dioxide Anion Gap BUN Creatinine Estimated GFR/1.73 m2 Glucose Calcium Magnesium Iron TIBC Transferrin % Sat Creatine Kinase Troponin I [place] Urine Legionella Ag Negative Crossmatch See Detail 11/20/21 11/20/21 11/20/21 15:15 15:15 15:15 WBC RBC Hgb Hct MCV MCH MCHC RDW Plt Count MPV Immature Gran % Neutrophils % Lymphocytes % Monocytes % Eosinophils % Basophils % Metamyelocytes % Nucleated RBC % Absolute Neutrophils Absolute Lymphocytes Absolute Monocytes Absolute Eosinophils Absolute Basophils RBC Morphology Hypochromasia Anisocytosis Sodium 145 Potassium 3.9 Chloride 113 H Carbon Dioxide 19.1 L Anion Gap 12.9 H BUN 17 Creatinine 1.2 H Estimated GFR/1.73 m2 43.01 Glucose 89 Calcium 9.1 Magnesium Iron TIBC Transferrin % Sat Creatine Kinase 731 H Troponin I [place] 0.3 L Urine Legionella Ag Crossmatch 11/20/21 11/21/21 11/21/21 15:15 08:23 08:23 WBC RBC Hgb Hct MCV MCH MCHC RDW Plt Count MPV Immature Gran % Neutrophils % Lymphocytes % Monocytes % Eosinophils % Basophils % Metamyelocytes % Nucleated RBC % Absolute Neutrophils Absolute Lymphocytes Absolute Monocytes Absolute Eosinophils Absolute Basophils RBC Morphology Hypochromasia Anisocytosis Sodium 145 Potassium 3.0 L Chloride 115 H Carbon Dioxide 18.5 L Anion Gap 11.5 H BUN 16 Creatinine 1.2 H Estimated GFR/1.73 m2 43.01 Glucose 97 Calcium 8.9 Magnesium 2.0 Iron 7 L TIBC 430 Transferrin % Sat 2 L Creatine Kinase 235 H Troponin I [place] Urine Legionella Ag Crossmatch 11/21/21 11/21/21 11/21/21 08:23 08:23 08:23 WBC 18.23 H RBC 3.69 L Hgb 8.2 L Hct 27.9 L MCV 76 L MCH 22.2 L MCHC 29.4 L D RDW 21.4 H Plt Count 225 MPV 9.7 Immature Gran % 2.2 Neutrophils % 84.6 Lymphocytes % 7.4 Monocytes % 3.6 Eosinophils % 1.9 Basophils % 0.3 Metamyelocytes % Nucleated RBC % 0.0 Absolute Neutrophils 15.42 H Absolute Lymphocytes 1.35 Absolute Monocytes 0.66 Absolute Eosinophils 0.35 Absolute Basophils 0.05 RBC Morphology See Below Hypochromasia 1+ Anisocytosis 2+ Sodium Potassium Chloride Carbon Dioxide Anion Gap BUN Creatinine Estimated GFR/1.73 m2 Glucose Calcium Magnesium Iron TIBC Transferrin % Sat Creatine Kinase Troponin I < 50 [place] < 0.2 L Urine Legionella Ag Crossmatch 11/21/21 12:30 WBC RBC Hgb Hct MCV MCH MCHC RDW Plt Count MPV Immature Gran % Neutrophils % Lymphocytes % Monocytes % Eosinophils % Basophils % Metamyelocytes % Nucleated RBC % Absolute Neutrophils Absolute Lymphocytes Absolute Monocytes Absolute Eosinophils Absolute Basophils RBC Morphology Hypochromasia Anisocytosis Sodium Potassium Chloride Carbon Dioxide Anion Gap BUN Creatinine Estimated GFR/1.73 m2 Glucose Calcium Magnesium Iron TIBC Transferrin % Sat Creatine Kinase Troponin I < 50 [place] Urine Legionella Ag Crossmatch
--- NOTE | 2021-11-21 15:45 | RT.EKG_ITS ---
APPROVED REPORT Exam: Resting ECG Reason for Exam: rhythm change Patient Location: I HR:94 bpm ECG Measurements Heart Rate 94 AXIS ME 135 P 55 QRSd 97 QRS 12 QT 379 T 24 QTc 474 Conclusion Sinus rhythm...normal P axis, V-rate 50- 99 Normal Electrocardiogram
[2021-11-21] MEDS: Metoprolol 12.5 MG TAB PO (20:28)
[2021-11-21] MEDS: Docusate Sodium 100 MG CAP PO (20:28)
[2021-11-21] MEDS: QUEtiapine 100 MG TAB 150 MG PO (20:29)
[2021-11-21] MEDS: Melatonin 3 MG TAB PO (21:44)
[2021-11-21 23:45] LABS: Streptococcus Pneumoniae Ag, U Negative (Negative)
[2021-11-22] VITALS (21 sets, daily range): BP systolic 129–166; BP diastolic 61–124; PULSE 84–114; RESP 21–39; TEMP 36.6–37.3; O2SAT 91–96
[2021-11-22] MEDS: diazePAM 10 MG/2 ML SYR 5 MG IVP ×3 (05:08→21:10)
[2021-11-22 06:33] LABS: Absolute Basophil Count 0.04 10^3/uL (0.0-0.2); Absolute Eosinophil Count 0.44 10^3/uL (0.0-0.7); Absolute Monocyte Count 0.77 10^3/uL (0.1-0.8); Basophils % 0.3; HCT 26.9 % (36.0-46.0); HGB 7.9 g/dL (11.2-15.7); Immature Grans % 0.7; Lymphocytes % 11.5; MCH 22.2 pg (27.0-33.0); MCHC 29.4 % (32.0-36.0); MCV 76 fL (80-95); MPV 9.6 fL (8.0-11.0); Monocytes % 5.2; Neutrophils % 79.3; Nucleated RBC 0.1 % (0.0-0.3); Platelet Count 224 10^3/uL (130-400); RBC 3.56 10^6/uL (3.93-5.22); RDW 21.6 % (11.7-14.6); RDW-SD 58.7 fL; WBC 14.77 10^3/uL (4.4-10.8)
[2021-11-22 06:39] LABS: Absolute Neutrophil Count 11.71 10^3/uL (1.2-6.7)
[2021-11-22 06:49] LABS: Anion Gap 10.9 mmol/L (3-11); BUN 14 mg/dL (7-18); CO2 19.1 mmol/L (21.0-32.0); CREATININE 1.1 mg/dL (0.55-1.02); Calcium 8.9 mg/dL (8.5-10.1); Chloride 115 mmol/L (98-107); Creatine Kinase 132 U/L (26-192); Estimated GFR 47.55 (mL/min/1.73m2); Glucose 102 mg/dL (74-106); Magnesium 1.9 mg/dL (1.8-2.4); Potassium 3.3 mmol/L (3.5-5.1); Sodium 145 mmol/L (136-145)
[2021-11-22 06:54] LABS: Anisocytosis 2+; Diff Comment RBC Morph Reviewed; Poikilocytes 1+
[2021-11-22] MEDS: Levothyroxine 50 MCG TAB PO (10:04)
[2021-11-22] MEDS: Docusate Sodium 100 MG CAP PO (10:05)
[2021-11-22] MEDS: Folic Acid 1 MG TAB PO (10:05)
[2021-11-22] MEDS: Metoprolol 12.5 MG TAB PO (10:05)
[2021-11-22] MEDS: Polyethylene Glycol 3350 17 GM PACKET PO (10:05)
[2021-11-22] MEDS: Multivitamin TAB 1 TAB PO (10:06)
[2021-11-22] MEDS: Pantoprazole 40 MG VIAL IVP ×2 (10:07→21:10)
[2021-11-22] MEDS: Normal Saline Flush 10 ML SYR IVP (10:07)
[2021-11-22] MEDS: POTASSIUM CHLORIDE 10 MEQ/100 ML BAG 100 MEQ IVPB ×4 (10:08→13:18)
[2021-11-22] MEDS: AMPICILLIN/SULBACTAM 3 GM in Normal Saline 100 ML IVPB ×2 (10:10→21:12)
[2021-11-22] MEDS: AZITHROMYCIN 500 MG in Normal Saline 250 ML 100 MG IVPB (10:10)
[2021-11-22] MEDS: Normal Saline 500 ML IV (10:21)
--- NOTE | 2021-11-22 10:33 | CMPROGNOTE_ITS ---
- If Service Date Differs Date of service: 11/22/21 Time of Service: 10:33 Care Management Progress Note S/O: Stacy was sleeping when CM attempted to met with her. Her daughter was not present at the time. Yesterday, Mackenzie, Palliative Care met with Stacy, but was unable to connect with her daughter, Lluvia. Stacy continues to be closely monitored and treated at ICU level of care. Per report, she is on IV abx for sepsis due to pneumonia. CM will continue to follow. A: Stacy is an 81 year old female admitted to [facility] on 11/19/21 with severe anemia, ITZEL, L pneumonia w/hypoxemia. P: Plan is undetermined at this time as it is dependent on Stacy' progress. She continues to be closely monitored and treated. Stacy may require transfer to [facility] [place] for ECT treatment. CM will continue to follow.
--- NOTE | 2021-11-22 13:47 | W.PM.PROGNOT ---
Date of Service Date of service: 11/22/21 Time of Service: 13:47 Assessment and Plan Assessment and plan (1) Sepsis: Status: Acute Assessment and plan: Due to PNA, present on admission. Change abx to unasyn + azithromycin due to concerns for possible aspiration (has a hiatal hernia) and because WBC went up. WBC count now improved. Afebrile. Blood cultures negative. (2) Rapid atrial fibrillation: Status: Acute Assessment and plan: Now on po metoprolol with HR in the low 90's. BP is in the 130's - 150 range. Consider increasing metoprolol tomorrow to bring HR under better control. Serial troponins were neg. Echo: Est. EF of 59%. Normal left ventricular wall thickness and chamber size, mild to mod tricuspid regurgitation.. (3) Pneumonia: Status: Acute Assessment and plan: Present on admission. As above On 4L of O2 with saturations of 95, 96%. (4) Acute respiratory failure with hypoxia: Status: Acute Assessment and plan: Due to PNA, present on admission. As above. 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 Continue scheduled and prn benzodiazepines. If becomes rigid, the concern for malignant catatonia would warrant a transfer [place] [facility] [place]. It is reassuring that her CPK has declined. Dr Johnson consulted earlier in this hospitalization. (6) Anemia: Status: Acute Assessment and plan: S/p 2 units pRBCs - H/H improved; 7.9 today. No active bleeding. Microcytic. Has iron deficiency. B12/folate are actually high. Heme negative in the ED. S/p venofer dose. May require outpatient GI workup. Continue to monitor hemoccults. Continue to monitor CBC. (7) Acute kidney injury superimposed on chronic kidney disease: Status: Resolved Assessment and plan: ?Dehydration vs lithium toxicity. Creatinine 1.1; at baseline. Sodium normalized. Now off IV fluids. No evidence of obstructive uropathy on CT. Payan catheter had to be reinserted for urinary retentioN (>950 ccs came out). (8) Bipolar 2 disorder: Assessment and plan: Continue seroquel. Read discussion above (9) Fall: Status: Acute Assessment and plan: PT/OT consult when mental status is more appropriate. (10) DVT prophylaxis: Status: Acute Assessment and plan: TEDs. No chemica DVT ppx given unclear etiology of her anemia. (11) Discharge planning issues: Status: Acute Assessment and plan: Full code (formerly DNR/DNI, but this was reversed by the daughter on admission). Palliative care and psychiatry consulted. May require transfer [place] [facility] if becomes rigid and/or behaviors escalate. Back in the ICU, which she continues to require. Not requiring restraints at this time. Discussed with Dr Roldan. Subjective Subjective Patient reports: tolerating a regular diet and afebrile; denies diarrhea or vomiting Exam Narrative Exam Narrative: Gen: confused, elderly female lying on right side. Awake. NAD, comfortable Resp: Lungs clear. No increased work of breathing. Intermittent weak, congested sounding cough. CV: RRR. Ext: No edema. Warm/dry. Objective Last Vital Signs Temp 37.3 C 11/22/21 07:50 Pulse 93 H 11/22/21 10:00 Resp 23 11/22/21 10:00 BP 136/70 11/22/21 10:00 Pulse Ox 96 11/22/21 10:00 Laboratory Results - last 24 hr 11/19/21 11/22/21 11/22/21 16:55 05:50 05:50 WBC 14.77 H RBC 3.56 L Hgb 7.9 L Hct 26.9 L MCV 76 L MCH 22.2 L MCHC 29.4 L RDW 21.6 H Plt Count 224 MPV 9.6 Immature Gran % 0.7 Neutrophils % 79.3 Lymphocytes % 11.5 Monocytes % 5.2 Eosinophils % 3.0 Basophils % 0.3 Nucleated RBC % 0.1 Absolute Neutrophils 11.71 H Absolute Lymphocytes 1.70 Absolute Monocytes 0.77 Absolute Eosinophils 0.44 Absolute Basophils 0.04 RBC Morphology See Below Poikilocytosis 1+ Anisocytosis 2+ Sodium 145 Potassium 3.3 L Chloride 115 H Carbon Dioxide 19.1 L Anion Gap 10.9 BUN 14 Creatinine 1.1 H Estimated GFR/1.73 m2 47.55 Glucose 102 Calcium 8.9 Magnesium 1.9 Creatine Kinase 132 Ur Strep pneumoniae Ag Negative
[2021-11-23] VITALS (56 sets, daily range): BP systolic 96–177; BP diastolic 51–146; PULSE 81–113; RESP 12–34; TEMP 36.1–37; O2SAT 89–97
--- NOTE | 2021-11-23 | DI.CT_ITS ---
Exam(s) CT ABDOMEN PELVIS WO EXAM: CT ABDOMEN PELVIS WO CLINICAL HISTORY: pain, decreased hgb w/o heme positive stools.. TECHNIQUE: Imaging Protocol: Axial computed tomography images with coronal and sagittal reformatted images were created and reviewed. COMPARISON: CT CT CHEST/ABD/PEL WO from 11/19/2021 FINDINGS: The examination is limited due to patient motion artifact. ABDOMEN: Lung Bases: There is a persistent but improved infiltrate in the left lingula and left lower lobe. T here is again seen a large hiatal hernia. Coronary artery calcification and mitral valve calcificati on is noted. Liver: Normal density. No measurable mass. Gallbladder and biliary tract: The gallbladder is contracted. It is difficult to evaluate secondary to motion artifact. There does appear to be a gallstone present. Pancreas: Normal density, no abnormal calcifications or inflammatory process. Spleen: Normal. Kidneys: Normal size, contour and axis.No radiodense stones or obstructive uropathy. No masses seen. Adrenal glands: No mass is seen. Lymph nodes: Within normal limits. Abdominal Aorta: Abdominal portion non-dilated. Atherosclerosis is present. PELVIS: Bladder:The urinary bladder is incompletely distended. There is a Payan catheter in place. Evaluati on is limited. Bowel: No obstruction or bowel wall thickening. No evidence of appendicitis. Peritoneal cavity: No ascites, collection or mesenteric inflammatory response. No free air. Reproductive organs: Unremarkable as visualized. Bones: Within normal limits. Soft Tissues: Within normal limits. IMPRESSION: 1. Acute abdominal or pelvic process. 2. Improving pneumonia in the left lower lobe and left lingula. RADIATION DOSE DELIVERED: 819.01mGy.cm Total DLP DATA REPOSITORY: All CT scans at this facility are submitted to the National Radiology Data Registry (NRDR) Dose Index Registry (DIR) with the [employer] ([employer]). RADIATION OPTIMIZATION: All CT scans at this facility use at least one of these dose optimization te chniques: automated exposure control; mA and/or kV adjustment per patient size (includes targeted exa ms where dose is matched to clinical indication); or iterative reconstruction.
--- NOTE | 2021-11-23 | DI.CT_ITS ---
Exam(s) CT HEAD WO EXAM: CT HEAD WO CLINICAL HISTORY: confusion. TECHNIQUE: Imaging Protocol: Axial computed tomography images with coronal and sagittal reformatted images were created and reviewed COMPARISON: CT CT HEAD CERVICAL SPINE WO from 11/19/2021 FINDINGS: The examination is limited due to patient motion artifact.. Ventricles and Extra axial spaces: Normal in size and morphology for the patient's age. Hemorrhage: None. Cerebral parenchyma: No acute territorial infarct. There are areas of decreased attenuation in the w andree matter consistent with small vessel ischemic disease. Midline shift: None. Brainstem/Cerebellum: Normal. Calvarium: Normal. Visualized Paranasal sinuses/Mastoids: Clear. Soft Tissues: Unremarkable. IMPRESSION: No acute intracranial process. RADIATION DOSE DELIVERED: 692mGy.cm Total DLP DATA REPOSITORY: All CT scans at this facility are submitted to the National Radiology Data Registry (NRDR) Dose Index Registry (DIR) with the [employer] (A[employer]). RADIATION OPTIMIZATION: All CT scans at this facility use at least one of these dose optimization te chniques: automated exposure control; mA and/or kV adjustment per patient size (includes targeted exa ms where dose is matched to clinical indication); or iterative reconstruction.
[2021-11-23] MEDS: ACETAMINOPHEN 1,000 MG/100 ML BTL 400 MG IVPB ×2 (00:10→09:54)
[2021-11-23] MEDS: diazePAM 10 MG/2 ML SYR 5 MG IVP ×6 (02:10→23:43)
[2021-11-23] MEDS: Normal Saline Flush 10 ML SYR IVP ×5 (02:12→19:30)
[2021-11-23] MEDS: AZITHROMYCIN 500 MG in Normal Saline 250 ML 250 MG IVPB (08:46)
[2021-11-23] MEDS: Pantoprazole 40 MG VIAL IVP ×2 (08:46→21:13)
[2021-11-23] MEDS: Alteplase 2 MG VIAL IJ (08:46)
[2021-11-23] MEDS: Metoprolol 12.5 MG TAB PO (08:58)
[2021-11-23] MEDS: Water,Injection,Sterile 10 ML VIAL (09:00)
--- NOTE | 2021-11-23 10:17 | CMPROGNOTE_ITS ---
- If Service Date Differs Date of service: 11/23/21 Time of Service: 10:17 Care Management Progress Note S/O: Stacy was sitting up in bed when CM met with her. She appeared restless and attempted to get out of bed several times. Palliative care met with her daughter, Lluvia today, to discuss goals of care. They will continue to follow Stacy while she is inpatient. Per report, she remains on IV abx for sepsis due to pneumonia. Her H&H was low today, and she was transfused a unit of blood. CM wi ll continue to follow. A: Stacy is an 81 year old female admitted to [facility] on 11/19/21 with severe anemia, ITZEL, L pneumonia w/hypoxemia. P: Plan is undetermined at this time as it is dependent on Stacy' progress. She continues to be closely monitored and treated. Stacy may require transfer [place] [facility]. CM will continue to follow.
[2021-11-23 10:18] LABS: Abs Immature Grans 0.24 10^3/uL (0.0-0.06); Absolute Basophil Count 0.02 10^3/uL (0.0-0.2); Absolute Eosinophil Count 0.45 10^3/uL (0.0-0.7); Absolute Lymphocyte Count 1.37 10^3/uL (1.2-3.4); Absolute Monocyte Count 0.47 10^3/uL (0.1-0.8); Absolute Neutrophil Count 4.28 10^3/uL (1.2-6.7); Basophils % 0.3; Eosinophils % 6.6; HCT 22.2 % (36.0-46.0); Immature Grans % 3.5; Lymphocytes % 20.1; MCH 22.3 pg (27.0-33.0); MCHC 29.3 % (32.0-36.0); MCV 76 fL (80-95); MPV 10.6 fL (8.0-11.0); Monocytes % 6.9; Neutrophils % 62.6; Nucleated RBC 0.6 % (0.0-0.3); Platelet Count 141 10^3/uL (130-400); RBC 2.92 10^6/uL (3.93-5.22); RDW 22.3 % (11.7-14.6); RDW-SD 59.7 fL; WBC 6.83 10^3/uL (4.4-10.8)
[2021-11-23] MEDS: AMPICILLIN/SULBACTAM 3 GM in Normal Saline 100 ML IVPB ×2 (10:19→21:14)
[2021-11-23 10:36] LABS: Anion Gap 9.7 mmol/L (3-11); BUN 16 mg/dL (7-18); CO2 22.3 mmol/L (21.0-32.0); CREATININE 1.2 mg/dL (0.55-1.02); Calcium 8.7 mg/dL (8.5-10.1); Chloride 108 mmol/L (98-107); Estimated GFR 43.01 (mL/min/1.73m2); Glucose 128 mg/dL (74-106); Potassium 3.3 mmol/L (3.5-5.1); Sodium 140 mmol/L (136-145)
[2021-11-23 10:40] LABS: C Diff PCR Negative (Negative)
[2021-11-23 11:02] LABS: HGB 6.5 g/dL (11.2-15.7)
[2021-11-23 11:03] LABS: Anisocytosis 1+; Macrocytosis 1+; Polychromasia Present
[2021-11-23] MEDS: Magnesium Oxide 400 MG TAB PO (13:03)
[2021-11-23] MEDS: QUEtiapine 50 MG TAB PO (13:04)
[2021-11-23] MEDS: POTASSIUM CHLORIDE 10 MEQ/100 ML BAG 100 MEQ IVPB ×2 (13:05→14:49)
[2021-11-23] MEDS: Benzonatate 200 MG CAP PO ×2 (14:47→21:14)
--- NOTE | 2021-11-23 16:46 | W.PM.PROGNOT ---
Date of Service Date of service: 11/23/21 Time of Service: 16:46 Assessment and Plan Assessment and plan (1) Sepsis: Status: Acute Assessment and plan: Due to PNA, present on admission. Cont unasyn + azithromycin. WBC count now normalized. Afebrile. Blood cultures negative. (2) Rapid atrial fibrillation: Status: Acute Assessment and plan: Now on po metoprolol; held this am d/t relatively low BP. BP is in the 130's - 150 range. Consider increasing metoprolol tomorrow to bring HR under better control. Serial troponins were neg. Echo: Est. EF of 59%. Normal left ventricular wall thickness and chamber size, mild to mod tricuspid regurgitation.. (3) Pneumonia: Status: Acute Assessment and plan: Present on admission. As above LIkely d/t aspiration. Hypoxia resolved. Now on RA. (4) Acute respiratory failure with hypoxia: Status: Acute Assessment and plan: Due to PNA, present on admission. Now resolved. (5) Toxic metabolic encephalopathy: Status: Acute Assessment and plan: DDx: due to PNA, possible effect of supratherapeutic for her lithium level, dehydration/ITZEL, possible benzodiazepine withdrawal, psychiatric causes (?malignant catatonia - has a history of this, treated [place] [facility] [place]), ?post-concussive. Continue scheduled and prn benzodiazepines. If becomes rigid, the concern for malignant catatonia would warrant a transfer to [facility] [place]. It is reassuring that her CPK has declined. Dr Johnson consulted earlier in this hospitalization. (6) Anemia: Status: Acute Assessment and plan: S/p 2 units pRBCs - H/H improved but then decreased again: 6.5 today No active bleeding noted. Stool heme negative. Transfuse 1 unit pRBCs. Microcytic. Has iron deficiency. B12/folate are actually high. Heme negative in the ED. S/p venofer dose. May require outpatient GI workup. Continue to monitor hemoccults. Continue to monitor CBC. (7) Acute kidney injury superimposed on chronic kidney disease: Status: Resolved Assessment and plan: ?Dehydration vs lithium toxicity. Creatinine 1.1 - 1.2; at baseline. Sodium normalized. Now off IV fluids. No evidence of obstructive uropathy on CT. Payan catheter had to be reinserted for urinary retentioN (>950 ccs came out). (8) Bipolar 2 disorder: Assessment and plan: Continue seroquel. Read discussion above (9) Fall: Status: Acute Assessment and plan: PT/OT consult when mental status is more appropriate. (10) DVT prophylaxis: Status: Acute Assessment and plan: TEDs. No chemica DVT ppx given unclear etiology of her anemia. (11) Discharge planning issues: Status: Acute Assessment and plan: Full code (formerly DNR/DNI, but this was reversed by the daughter on admission). Palliative care and psychiatry consulted. Palliative stated that daughter, YEIMY, changed the patients code status because I'm ot ready for her to . May require transfer [place] [facility] if becomes rigid and/or behaviors escalate. Now med-surg status. Not requiring restraints at this time. Subjective Subjective Patient reports: afebrile; denies shortness of breath Interval history since last seen: Confused. Tries to verbalize and will manage short sentences occasionally. Less cough. Cough now dry sounding; was wet/congested sounding. Refuses medications at times. Exam Narrative Exam Narrative: Gen: confused, restless and trying to get out of bed. Resp: Lungs clear. No increased work of breathing. No cough during my visit. CV: RRR. Ext: No edema. Warm/dry. Psych: confused. Struggles to talk. Objective Last Vital Signs Temp 36.1 C L 11/23/21 15:54 Pulse 92 H 11/23/21 16:32 Resp 17 11/23/21 16:32 BP 164/95 H 11/23/21 16:32 Pulse Ox 94 11/23/21 16:32 Laboratory Results - last 24 hr 11/23/21 11/23/21 11/23/21 08:45 09:45 09:45 WBC 6.83 RBC 2.92 L Hgb 6.5 L* Hct 22.2 L MCV 76 L MCH 22.3 L MCHC 29.3 L RDW 22.3 H Plt Count 141 MPV 10.6 Immature Gran % 3.5 Neutrophils % 62.6 Lymphocytes % 20.1 Monocytes % 6.9 Eosinophils % 6.6 Basophils % 0.3 Nucleated RBC % 0.6 H Absolute Neutrophils 4.28 Absolute Lymphocytes 1.37 Absolute Monocytes 0.47 Absolute Eosinophils 0.45 Absolute Basophils 0.02 RBC Morphology See Below Polychromasia Present Anisocytosis 1+ Macrocytosis 1+ Sodium 140 Potassium 3.3 L Chloride 108 H Carbon Dioxide 22.3 Anion Gap 9.7 BUN 16 Creatinine 1.2 H Estimated GFR/1.73 m2 43.01 Glucose 128 H Calcium 8.7 Stl C.difficile Tox PCR Negative Patient ABO/Rh Antibody Screen Crossmatch 11/23/21 09:45 WBC RBC Hgb Hct MCV MCH MCHC RDW Plt Count MPV Immature Gran % Neutrophils % Lymphocytes % Monocytes % Eosinophils % Basophils % Nucleated RBC % Absolute Neutrophils Absolute Lymphocytes Absolute Monocytes Absolute Eosinophils Absolute Basophils RBC Morphology Polychromasia Anisocytosis Macrocytosis Sodium Potassium Chloride Carbon Dioxide Anion Gap BUN Creatinine Estimated GFR/1.73 m2 Glucose Calcium Stl C.difficile Tox PCR Patient ABO/Rh A Positive Antibody Screen NEGATIVE Crossmatch See Detail
[2021-11-23] MEDS: LORazepam 1 MG TAB PO (18:39)
[2021-11-23] MEDS: LORazepam 2 MG/ML VIAL IVP (19:45)
--- NOTE | 2021-11-23 20:28 | DI.VRAD_ITS ---
PROCEDURE INFORMATION: Exam: CT Abdomen And Pelvis Without Contrast Exam date and time: 11/23/2021 19:50 Age: 81 years old Clinical indication: Other: Pain, decreased hgb w/o heme positive stools TECHNIQUE: Imaging protocol: Computed tomography of the abdomen and pelvis without contrast. Radiation optimization: All CT scans at this facility use at least one of these dose optimization techniques: automated exposure control; mA and/or kV adjustment per patient size (includes targeted exams where dose is matched to clinical indication); or iterative reconstruction. COMPARISON: CT CHEST/ABD/PEL WO 11/19/2021 05:16 FINDINGS: Lungs: Moderate airspace consolidation in the left lung base worse in the lingula, which however does appear improved since recent imaging of the thorax. Pleural spaces: Trace bilateral pleural fluid. Liver: No hepatic masses on noncontrast imaging. Gallbladder and bile ducts: No calcified stones. No ductal dilation. Pancreas: No gross pathology in the pancreas on noncontrast imaging. Spleen: No splenomegaly or focal lesions. Adrenal glands: No mass. Kidneys and ureters: No nephrolithiasis or collecting system obstruction. Stomach and bowel: Large hiatal hernia containing the majority of the stomach. No colitis or diverticular disease. No gross pathology in the small bowel without IV contrast. Appendix: No evidence of appendicitis. Intraperitoneal space: No free air. No significant fluid collection. Vasculature: No abdominal aortic aneurysm. Lymph nodes: No significantly enlarged lymph nodes. Urinary bladder: Payan catheter in a decompressed urinary bladder. Reproductive: Unremarkable as visualized. Bones/joints: Chronic bony changes with no acute fracture. Soft tissues: No suspicious lesions. Other findings: Mild generalized motion artifact. IMPRESSION: 1. No acute visceral pathology on noncontrast imaging. 2. The left lung base pneumonia is improving. 3. Payan catheter in a decompressed urinary bladder. 4. Incidental findings as described. Dictated and Authenticated by: Elizabeth Greenwood MD. Ordering:JAVED Veliz MD
--- NOTE | 2021-11-23 20:29 | DI.VRAD_ITS ---
PROCEDURE INFORMATION: Exam: CT Head Without Contrast Exam date and time: 11/23/2021 7:41 PM Age: 81 years old Clinical indication: Other: Confusion TECHNIQUE: Imaging protocol: Computed tomography of the head without contrast. Radiation optimization: All CT scans at this facility use at least one of these dose optimization techniques: automated exposure control; mA and/or kV adjustment per patient size (includes targeted exams where dose is matched to clinical indication); or iterative reconstruction. COMPARISON: CT HEAD CERVICAL SPINE WO 11/19/2021 5:12 AM FINDINGS: Brain: No shift, mass, mass effect, or acute hemorrhage. Mild chronic stable small-vessel patchy lucency in the periventricular paris and centrum appears stable, mostly bifrontal. Cerebral ventricles: No unusual ventriculomegaly for age. Atrophy, age appropriate. No hydrocephalus. Pituitary gland and sella: No obvious mass or expansile change. Paranasal sinuses: Left ethmoid osteoma or fibro-osseous lesion is stable, incidental, 11 mm. Mild right anterior ethmoid opacification. No fluid levels. Mastoid air cells: Visualized mastoid air cells are well aerated. Orbital cavities: Unremarkable by this method. Bones/joints: Unremarkable. No acute fracture. No destructive lesion. Soft tissues: Unremarkable. Vasculature: Heavy carotid siphon calcification redemonstrated. IMPRESSION: No acute intracranial abnormality. Dictated and Authenticated by: Andry Urrutia MD. Ordering:JAVED Veliz MD
[2021-11-23] MEDS: guaiFENesin 600 MG TABCR PO (21:13)
[2021-11-23] MEDS: QUEtiapine 100 MG TAB 150 MG PO (21:14)
[2021-11-23] MEDS: Melatonin 3 MG TAB PO (21:14)
[2021-11-24] VITALS (20 sets, daily range): BP systolic 122–158; BP diastolic 56–91; PULSE 75–96; RESP 16–28; TEMP 36.5–37.3; O2SAT 87–95
[2021-11-24] MEDS: LORazepam 1 MG TAB PO (00:45)
[2021-11-24] MEDS: ACETAMINOPHEN 1,000 MG/100 ML BTL 400 MG IVPB ×2 (00:45→17:43)
[2021-11-24] MEDS: Levothyroxine 50 MCG TAB PO (05:52)
[2021-11-24] MEDS: Normal Saline Flush 10 ML SYR IVP ×6 (05:55→21:39)
--- NOTE | 2021-11-24 07:02 | W.PALLCONSUL ---
Date of service: 11/24/21 Time of Service: 13:30 History of Present Illness Narrative: Ms. Kumar is an 81 y/o F currently inpatient in ICU at [facility] 2/2 sepsis r/t PNA; PMHx sig for bipolar d/o, CKD, A fib, HTN, HLD, A fib; report from daughter/guardian Lluvia reports long psych h/o x25 years, starting around age 58; chronic ECT and lithium therapies, in more recent years/months has spent several months in and out of hospital r/t psych/catatonia, f/b [facility] [place]; pt does not like ECT, d/t that has had varying schedule of ECT, to 3x/wk to once monthly, last ECT tx in July; f/b Dr. Cardenas w/human services, f/u scheduled in person 12/26/21 pt lives w/ Lalito in [facility], daughter also lives in [facility]; reports prior to this hospitalization was iADL, doing well, sxs controlled; no in home services; h/o several falls w/multiple rib fractures AD completed in 2012, guardianship enacted in 2013 d/t psych; pt was previously DNR/I, guardian switched to FULL code on this hospitalization, I'm not ready; I've seen her go through worse, h/o feeding tube, several serious hospitalizations, catatonia; believes she is strong and will recover to previous baseline; daughter reports several outside family stressors; daughter reports also wanting pt to continue to live, and not ready for her to , reports son not fully engaged in care of pt; daughter feels worried, scared and fearful of losing mom Hospital course: reports prior to this hospitalization was doing well, went on drive and dinner days before, then noticed drop in BP, pale, brought to urgent care for labs, next morning has a fall in the morning, l/t presentation to hospital; presented to [facility] ED on 11/19/21 w/CC agitation and altered MS; work up in ED found PNA, admitted to ICU; chronic anemia, receiving blood transfusions, heme-neg stool on rectal exam, GI work up pending for outpatient f/u, found to be hypoxic and hypotensive w/ITZEL: 11/21/21 sepsis d/t PNA, abx changed to Unasyn and azithromycin; a fib, now on metoprolol; f/b [facility] psych, consider consult or transfer to [facility] Assessment and Plan Assessment and plan (1) Full code status: Status: Acute Assessment and plan: reviewed previously completed AD from 2012 completed by patient w/daughter which clearly states preference for if from terminal condition imminent keep me comfortable and allow natural to occur, I do not want any medical interventions to extent my life. If in persistent vegetative state and not away of myself or environment or able to interact w/others keep me comfortable and allow a natural to occur. If i am in an end-stage condition, that is incurable, that will continue until and has already resulted in loss of capacity and complete physical dependency keep me comfortable and allow natural to occur. preference for hospice care when dying - encouraged she consider pt preferences, clearly stated from AD, reviewed DNR/I does not mean do not treat; reviewed futility of CPR attempt; reviewed pt unlikely to return to previous baseline, discussed alternative pathways of pt's remaining life; reviewed hospice eligible at this time; daughter is unable to process and consider alternatives at this time - daughter preference to remain full code at this time (2) Palliative care encounter: Status: Acute Assessment and plan: PC to continue to follow [facility] admission; f/u w/Brittany Dale this week and Dr. Falcon early next week, likely will require several conversations regarding GOC and code status (3) Rapid atrial fibrillation: Status: Acute Assessment and plan: Now on po metoprolol; held this am d/t relatively low BP. BP is in the 130's - 150 range.? Consider increasing metoprolol tomorrow to bring HR under better control.? Serial troponins were neg. Echo: Est. EF of 59%.? Normal left ventricular wall thickness and chamber size, mild to mod tricuspid regurgitation. (4) Sepsis: Status: Acute Assessment and plan: on arrival r/t PNA, continue unasyn and azithromycin. WBC count now normalized.? Afebrile. (5) Acute kidney injury superimposed on chronic kidney disease: Status: Resolved Assessment and plan: ?Dehydration vs lithium toxicity. Creatinine 1.1 - 1.2;? at baseline. Sodium normalized.? Now off IV fluids. No evidence of obstructive uropathy on CT. (6) Anemia: Status: Acute Assessment and plan: S/p 2 units pRBCs - H/H improved but then decreased again: 6.5 today No active bleeding noted.? Stool heme negative. Transfuse 1 unit pRBCs. Microcytic. Has iron deficiency. B12/folate are actually high. Heme negative in the ED. S/p venofer dose. May require outpatient GI workup. Continue to monitor hemoccults. Continue to monitor CBC. 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 Continue scheduled and prn benzodiazepines. If becomes rigid, the concern for malignant catatonia would warrant a transfer to [facility] for emergent ECT. It is reassuring that her CPK has declined.? Dr Johnson consulted earlier in this hospitalization. Review of Systems Narrative: see HPI, ROS not obtainable d/t mental condition PFSH All Active Problems (Updated 11/24/21 @ 07:35 by Mackenzie Dos Santos NP) Palliative care encounter (Acute) Full code status (Acute) Rapid atrial fibrillation (Acute) Sepsis (Acute) Discharge planning issues (Acute) DVT prophylaxis (Acute) Acute respiratory failure with hypoxia (Acute) Toxic metabolic encephalopathy (Acute) Hypoxemia (Acute) ITZEL (acute kidney injury) (Acute) Anemia (Acute) Fall (Acute) Altered mental status (Acute) Pneumonia (Acute) Asymmetrical sensorineural hearing loss (Acute) Anxiety (Chronic) Sensorineural hearing loss, bilateral (Acute) Knee pain, right (Acute) Hip pain, right (Acute) Anemia (Chronic) Acute kidney injury superimposed on chronic kidney disease (Acute) Encephalopathy acute (Acute) Multiple fractures of ribs (Acute 12/09/13) Hearing loss (Chronic) Chronic kidney disease, stage III (moderate) (Chronic 09/26/11) 08/25/2016 [facility] nephro consult: JOSE-I or ARB not recommended for this pt DJD (degenerative joint disease), lumbar (Acute 12/26/13) x-ray 12/2013 DVT (deep venous thrombosis) (Acute 12/08/13) 09/2013 L at OSH, (confirmed 11/2013 [facility] pt off therapy) RX Xarelto Depressive disorder (Acute 11/11/12) Dr. Esther Heath, Psychiatrist Multiple hospitalizations Psych dx's: unipolar vs. 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 With Catatonia. S/P multiple psychiatric admissions. On [place], Lorazepam, Nortriptyline and Quetiapine as an out-patient, unclear doses. Hypertension (Chronic) Hyperlipidemia (Chronic) Hypothyroidism (Chronic) Constipation (Chronic) Medical History Bipolar 2 disorder (01/30/17) Per Dr. 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 Surgical History S/P ORIF (open reduction internal fixation) fracture Family History Brother Heart disease Stroke Brother Heart disease Dementia Father Throat cancer Mother Dementia Other Hypertension Social History Smoking/Tobacco Use Status: Never Smoking risk assessment performed?: Yes Alcohol Intake: former Drug use: Never Substance use type: does not use Number of Children: 2 Pets and animals: Yes Pets and animals: cat(s) Current gender identity: female What type of physical activity do you participate in: walking Frequency: daily Seatbelt use: always Do you feel safe at home: Yes Do you feel safe in your relationship?: Yes Exam Narrative Exam Narrative: lying in bed throughout visit; pt sleeps intermittent throughout visit, on and off alertness, responds to daughter verbal direction best w/taking medications and repositioning; no meaningful communication, garbled, mumbled; respirations regular, no labored breathing Results Last Vital Signs Temp 97.0 F L 11/23/21 16:00 Pulse 86 11/24/21 05:00 Resp 23 11/24/21 05:00 BP 156/91 H 11/24/21 05:00 Pulse Ox 91 L 11/24/21 05:00 Labs Result diagrams: 11/24/21 10:00 11/23/21 09:45 Labs: Laboratory Results - last 24 hr 11/23/21 11/23/21 11/23/21 08:45 09:45 09:45 WBC 6.83 RBC 2.92 L Hgb 6.5 L* Hct 22.2 L MCV 76 L MCH 22.3 L MCHC 29.3 L RDW 22.3 H Plt Count 141 MPV 10.6 Immature Gran % 3.5 Neutrophils % 62.6 Lymphocytes % 20.1 Monocytes % 6.9 Eosinophils % 6.6 Basophils % 0.3 Nucleated RBC % 0.6 H Absolute Neutrophils 4.28 Absolute Lymphocytes 1.37 Absolute Monocytes 0.47 Absolute Eosinophils 0.45 Absolute Basophils 0.02 RBC Morphology See Below Polychromasia Present Anisocytosis 1+ Macrocytosis 1+ Sodium 140 Potassium 3.3 L Chloride 108 H Carbon Dioxide 22.3 Anion Gap 9.7 BUN 16 Creatinine 1.2 H Estimated GFR/1.73 m2 43.01 Glucose 128 H Calcium 8.7 Stl C.difficile Tox PCR Negative Patient ABO/Rh Antibody Screen Crossmatch 11/23/21 09:45 WBC RBC Hgb Hct MCV MCH MCHC RDW Plt Count MPV Immature Gran % Neutrophils % Lymphocytes % Monocytes % Eosinophils % Basophils % Nucleated RBC % Absolute Neutrophils Absolute Lymphocytes Absolute Monocytes Absolute Eosinophils Absolute Basophils RBC Morphology Polychromasia Anisocytosis Macrocytosis Sodium Potassium Chloride Carbon Dioxide Anion Gap BUN Creatinine Estimated GFR/1.73 m2 Glucose Calcium Stl C.difficile Tox PCR Patient ABO/Rh A Positive Antibody Screen NEGATIVE Crossmatch See Detail
[2021-11-24] MEDS: diazePAM 10 MG/2 ML SYR 5 MG IVP ×2 (07:34→13:34)
[2021-11-24] MEDS: AZITHROMYCIN 500 MG in Normal Saline 250 ML 250 MG IVPB (09:10)
[2021-11-24] MEDS: Alteplase 2 MG VIAL IJ (09:10)
[2021-11-24] MEDS: Water,Injection,Sterile 10 ML VIAL (09:11)
--- NOTE | 2021-11-24 09:50 | CMPROGNOTE_ITS ---
- If Service Date Differs Date of service: 11/24/21 Time of Service: 09:50 Care Management Progress Note S/O: Stacy transitioned to med surg today. Stacy is being closely monitored and treated with IV abx for sepsis due to pneumonia. PT/OT consult is recommended when pts mental status improves. Palliative provider discussed goals of care with Stacy and her daughter Lluvia on 11/23/21, no changes were made. Palliative will continue to follow. Dr Johnson was consulted earlier in this hospitalization. CM will continue to follow. A: Stacy is an 81 year old female admitted to [facility] on 11/19/21 with severe anemia, ITZEL, L pneumonia w/hypoxemia. P: Plan is undetermined at this time as it is dependent on Stacy' progress. She continues to be closely monitored and treated. Stacy may require transfer to [facility] for ECT treatment. CM will continue to follow.
[2021-11-24] MEDS: AMPICILLIN/SULBACTAM 3 GM in Normal Saline 100 ML IVPB ×2 (09:53→21:37)
[2021-11-24] MEDS: Pantoprazole 40 MG VIAL IVP (10:23)
[2021-11-24 10:35] LABS: Abs Immature Grans 0.23 10^3/uL (0.0-0.06); Absolute Basophil Count 0.04 10^3/uL (0.0-0.2); Absolute Eosinophil Count 0.72 10^3/uL (0.0-0.7); Absolute Lymphocyte Count 1.45 10^3/uL (1.2-3.4); Absolute Monocyte Count 0.48 10^3/uL (0.1-0.8); Absolute Neutrophil Count 4.22 10^3/uL (1.2-6.7); Basophils % 0.6; Eosinophils % 10.1; HCT 31.2 % (36.0-46.0); HGB 9.5 g/dL (11.2-15.7); Immature Grans % 3.2; Lymphocytes % 20.3; MCH 23.5 pg (27.0-33.0); MCHC 30.4 % (32.0-36.0); MCV 77 fL (80-95); MPV 9.8 fL (8.0-11.0); Monocytes % 6.7; Neutrophils % 59.1; Nucleated RBC 0.4 % (0.0-0.3); Platelet Count 236 10^3/uL (130-400); RBC 4.04 10^6/uL (3.93-5.22); RDW 22.9 % (11.7-14.6); RDW-SD 60.8 fL; WBC 7.14 10^3/uL (4.4-10.8)
[2021-11-24 10:52] LABS: Anisocytosis 2+; Diff Comment RBC Morph Reviewed
--- NOTE | 2021-11-24 13:30 | W.PM.PROGNOT ---
Date of Service Date of service: 11/24/21 Time of Service: 13:30 Assessment and Plan Assessment and plan (1) Sepsis: Status: Acute Assessment and plan: Due to PNA, present on admission. Cont unasyn + azithromycin. WBC count now normalized. Afebrile. Blood cultures negative. (2) Rapid atrial fibrillation: Status: Acute Assessment and plan: Now on po metoprolol BP generally controlled. HR in the 90's. Serial troponins were neg. Echo: Est. EF of 59%. Normal left ventricular wall thickness and chamber size, mild to mod tricuspid regurgitation.. (3) Pneumonia: Status: Acute Assessment and plan: Present on admission. As above LIkely d/t aspiration. Hypoxia resolved. Now on RA. (4) Acute respiratory failure with hypoxia: Status: Acute Assessment and plan: Due to PNA, present on admission. Now resolved. 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 Continue scheduled and prn benzodiazepines. If becomes rigid, the concern for malignant catatonia would warrant a transfer to [facility] for emergent ECT. It is reassuring that her CPK has declined. Dr Johnson consulted earlier in this hospitalization. (6) Anemia: Status: Acute Assessment and plan: S/p 2 units pRBCs - H/H improved but then decreased again to 6.5 No active bleeding noted. Stool heme negative. Transfused 1 unit pRBCs and Hgb 9.5 Microcytic. Has iron deficiency. B12/folate are actually high. Heme negative in the ED. S/p venofer dose. May require outpatient GI workup. Continue to monitor hemoccults. Continue to monitor CBC. CT Abd/pelvis w/o acute findings. No retroperitoneal bleed. (7) Acute kidney injury superimposed on chronic kidney disease: Status: Resolved Assessment and plan: ?Dehydration vs lithium toxicity. Creatinine 1.1 - 1.2; at baseline. Sodium normalized. Now off IV fluids. No evidence of obstructive uropathy on CT. Payan catheter had to be reinserted for urinary retentioN (>950 ccs came out). (8) Bipolar 2 disorder: Assessment and plan: Continue seroquel. Read discussion above (9) Fall: Status: Acute Assessment and plan: PT/OT consult when mental status is more appropriate. (10) DVT prophylaxis: Status: Acute Assessment and plan: TEDs. No chemica DVT ppx given unclear etiology of her anemia. (11) Discharge planning issues: Status: Acute Assessment and plan: Full code (formerly DNR/DNI, but this was reversed by the daughter on admission). Palliative care and psychiatry consulted. Palliative stated that daughter, YEIMY, changed the patients code status because I'm ot ready for her to . This was changed the year after her Health Care Directive was signed. May require transfer to [facility] if becomes rigid and/or behaviors escalate. Now med-surg status. Not requiring restraints at this time. Subjective Subjective Patient reports: afebrile; denies vomiting Interval history since last seen: Patient has been sleeping much of the morning. Exam Narrative Exam Narrative: Gen: asleep. Arouses briefly. Resp: Lungs clear. No increased work of breathing. No cough during my visit. CV: RRR. Ext: No edema. Warm/dry. Psych: confused. Struggles to talk. Objective Last Vital Signs Temp 37.3 C 11/24/21 11:15 Pulse 92 H 11/24/21 11:15 Resp 20 11/24/21 11:15 BP 122/70 11/24/21 11:15 Pulse Ox 91 L 11/24/21 11:15 Laboratory Results - last 24 hr 11/23/21 11/24/21 11/24/21 09:45 10:00 13:05 WBC 7.14 RBC 4.04 Hgb 9.5 L D Hct 31.2 L MCV 77 L MCH 23.5 L MCHC 30.4 L D RDW 22.9 H Plt Count 236 D MPV 9.8 Immature Gran % 3.2 Neutrophils % 59.1 Lymphocytes % 20.3 Monocytes % 6.7 Eosinophils % 10.1 Basophils % 0.6 Nucleated RBC % 0.4 H Absolute Neutrophils 4.22 Absolute Lymphocytes 1.45 Absolute Monocytes 0.48 Absolute Eosinophils 0.72 H Absolute Basophils 0.04 RBC Morphology See Below Anisocytosis 2+ Lactate Dehydrogenase Cancelled Add-On Test Request Patient ABO/Rh A Positive Antibody Screen NEGATIVE Crossmatch See Detail 11/24/21 Unknown WBC RBC Hgb Hct MCV MCH MCHC RDW Plt Count MPV Immature Gran % Neutrophils % Lymphocytes % Monocytes % Eosinophils % Basophils % Nucleated RBC % Absolute Neutrophils Absolute Lymphocytes Absolute Monocytes Absolute Eosinophils Absolute Basophils RBC Morphology Anisocytosis Lactate Dehydrogenase Add-On Test Request TNP Patient ABO/Rh Antibody Screen Crossmatch
--- NOTE | 2021-11-24 19:31 | W.PALPGNOTE ---
Date of service: 11/24/21 Time of Service: 16:00 Assessment and Plan Assessment and plan (1) Rapid atrial fibrillation: Status: Acute (2) Sepsis: Status: Acute (3) Acute respiratory failure with hypoxia: Status: Acute (4) Palliative care encounter: Status: Acute Assessment and plan: Lluvia and I reviewed Stacy's labs and imaging studies. Lluvia and I spoke for some time about what Stacy would want if she could answer for herself. She admitted that Stacy would want DNR/DNI like she had been years ago. After a long conversation she stated that although she didn't want her mom to , she was willing to change her code status to DNR/DNI to follow Stacy's wishes. Lluvia also wanted lorazepam to be used instead of diazepam as this has worked well in the past. Lluvia also clearly wanted her mom transferred to receive ECT if it became necessary I passed this information onto the hospitalist team. Subjective Subjective Interval history since last seen: I was asked to see Stacy and speak with her daughter Lluvia concerning goals of care. Stacy had received diazepam after an agitated spell. SHe was sleeping Exam Narrative Exam Narrative: Lying in her bed, respirations normal and non labored. Heart rate in the 80's. Lungs - shallow breaths but good air sounds Objective Last Vital Signs Temp 98.6 F 11/24/21 19:10 Pulse 87 11/24/21 19:10 Resp 16 11/24/21 19:10 BP 130/77 11/24/21 19:10 Pulse Ox 92 11/24/21 19:10 Laboratory Results - last 24 hr 11/24/21 11/24/21 11/24/21 10:00 13:05 Unknown WBC 7.14 RBC 4.04 Hgb 9.5 L D Hct 31.2 L MCV 77 L MCH 23.5 L MCHC 30.4 L D RDW 22.9 H Plt Count 236 D MPV 9.8 Immature Gran % 3.2 Neutrophils % 59.1 Lymphocytes % 20.3 Monocytes % 6.7 Eosinophils % 10.1 Basophils % 0.6 Nucleated RBC % 0.4 H Absolute Neutrophils 4.22 Absolute Lymphocytes 1.45 Absolute Monocytes 0.48 Absolute Eosinophils 0.72 H Absolute Basophils 0.04 RBC Morphology See Below Anisocytosis 2+ Lactate Dehydrogenase Cancelled Add-On Test Request TNP reviewed CT of head, abd and pelvis
[2021-11-24] MEDS: diazePAM 10 MG/2 ML SYR 2.5 MG IVP (21:38)
[2021-11-25] VITALS (9 sets, daily range): BP systolic 133–155; BP diastolic 63–84; PULSE 66–108; RESP 16–24; TEMP 35.8–36.9; O2SAT 91–97
[2021-11-25] MEDS: Levothyroxine 50 MCG TAB PO (05:37)
[2021-11-25 06:29] LABS: HCT 31.7 % (36.0-46.0)
[2021-11-25] MEDS: ACETAMINOPHEN 1,000 MG/100 ML BTL 400 MG IVPB (07:11)
[2021-11-25] MEDS: Normal Saline Flush 10 ML SYR IVP ×2 (07:11→08:27)
[2021-11-25] MEDS: QUEtiapine 50 MG TAB PO (08:08)
[2021-11-25] MEDS: Folic Acid 1 MG TAB PO (08:08)
[2021-11-25] MEDS: Benzonatate 200 MG CAP PO ×3 (08:08→20:49)
[2021-11-25] MEDS: Multivitamin TAB 1 TAB PO (08:08)
[2021-11-25] MEDS: Magnesium Oxide 400 MG TAB PO (08:08)
[2021-11-25] MEDS: guaiFENesin 600 MG TABCR PO ×2 (08:08→20:49)
[2021-11-25] MEDS: Pantoprazole 40 MG VIAL IVP ×2 (08:25→21:00)
[2021-11-25] MEDS: diazePAM 10 MG/2 ML SYR 2.5 MG IVP (08:26)
--- NOTE | 2021-11-25 10:30 | CMPROGNOTE_ITS ---
- If Service Date Differs Date of service: 11/25/21 Time of Service: 10:30 Care Management Progress Note S/O: Stacy was resting when CM attempted to meet with her. An ethics meeting was called this afternoon regarding Stacy's code status, as her daughter changed her to a full code, after she was previously a DNR/DNI on a [place] Advanced Directive. The committee contacted Mey Milligan, Surgical Physician Assistant of the [place] Ethics Committee, who stated that the court will always follow an AD that was created by the patient prior to their capacity being taken away, therefore, it is the only ethical option to return her status to DNR/DNI. CM and MD attempted to discuss this with her daughter, Lluvia, who was unavailable. PT was consulted today to evaluate her mobility, as she appears weak from PNA and a prolonged hospitalization. CM will continue to follow. A: Stacy is an 81 year old female admitted to [facility] on 11/19/21 with severe anemia, ITZEL, L pneumonia w/hypoxemia. P: Plan is undetermined at this time as it is dependent on Stacy' progress. She continues to be closely monitored and treated. Stacy may require transfer to [facility] for E[place] treatment. CM will continue to follow.
[2021-11-25] MEDS: AMPICILLIN/SULBACTAM 3 GM in Normal Saline 100 ML IVPB ×2 (11:46→21:02)
--- NOTE | 2021-11-25 17:29 | W.PM.PROGNOT ---
Date of Service Date of service: 11/25/21 Time of Service: 17:30 Assessment and Plan Assessment and plan (1) Sepsis: Status: Acute Assessment and plan: Due to PNA, present on admission. Resolved. Cont unasyn for one more day. Completed course of azithromycin WBC count now normalized. Afebrile. Blood cultures negative. (2) Rapid atrial fibrillation: Status: Acute Assessment and plan: Now on po metoprolol BP generally controlled. HR variable; 60's to 90's. Serial troponins were neg. Echo: Est. EF of 59%. Normal left ventricular wall thickness and chamber size, mild to mod tricuspid regurgitation.. (3) Pneumonia: Status: Acute Assessment and plan: Present on admission. As above LIkely d/t aspiration. Hypoxia resolved. Now on RA. (4) Acute respiratory failure with hypoxia: Status: Acute Assessment and plan: Due to PNA, present on admission. Now resolved. 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 Improving; moving back to baseline mentation. Continue scheduled and prn benzodiazepines. If becomes rigid, the concern for malignant catatonia would warrant a transfer to [facility] [place]. It is reassuring that her CPK has declined. Dr Johnson consulted earlier in this hospitalization. (6) Anemia: Status: Acute Assessment and plan: S/p 2 units pRBCs - H/H improved but then decreased again to 6.5 No active bleeding noted. Stool heme negative. Transfused 1 unit pRBCs and Hgb 9.5 > 10.0 Microcytic. Has iron deficiency. B12/folate are actually high. Heme negative in the ED. S/p venofer dose. May require outpatient GI workup. Continue to monitor CBC. CT Abd/pelvis w/o acute findings. No retroperitoneal bleed. (7) Acute kidney injury superimposed on chronic kidney disease: Status: Resolved Assessment and plan: ?Dehydration vs lithium toxicity. Creatinine 1.1 - 1.2; at baseline. Sodium normalized. Now off IV fluids. No evidence of obstructive uropathy on CT. Payan catheter had to be reinserted for urinary retentioN (>950 ccs came out). (8) Bipolar 2 disorder: Assessment and plan: Continue seroquel. Read discussion above (9) Fall: Status: Acute Assessment and plan: PT/OT consult; mental status improving. (10) DVT prophylaxis: Status: Acute Assessment and plan: TEDs. No chemica DVT ppx given unclear etiology of her anemia. (11) Discharge planning issues: Status: Acute Assessment and plan: Now DNR/DNI. Met with ethics team and discussed her advanced directive. Phone conversation with Mey Milligan, Respiratory Therapy Manager of the [place] Ethics Committee. The AD created by patient previously cannot be changed by her daughter who is her guardian. Her code status will stand; DNR/DNI. Her daughter was informed and is OK with the decision. Subjective Subjective Patient reports: tolerating a regular diet, bowel movement (Loose stools, less frequent) and afebrile; denies nausea or vomiting Exam Narrative Exam Narrative: Gen:Lying on side with upper body raised. Daughter feeding. Drinking on her own. Smiling. Resp: Lungs clear. No increased work of breathing. No cough during my visit. CV: RRR. Ext: No edema. Warm/dry. Psych: Affect bright. Objective Last Vital Signs Temp 35.8 C L 11/25/21 11:38 Pulse 86 11/25/21 15:00 Resp 18 11/25/21 11:38 BP 133/79 11/25/21 11:38 Pulse Ox 96 11/25/21 11:38 Laboratory Results - last 24 hr 11/25/21 06:00 Hgb 10.0 L Hct 31.7 L
[2021-11-25] MEDS: LORazepam 0.5 MG TAB PO (20:49)
[2021-11-25] MEDS: QUEtiapine 100 MG TAB 150 MG PO (20:49)
[2021-11-26] VITALS (8 sets, daily range): BP systolic 109–136; BP diastolic 58–87; PULSE 85–96; RESP 16–22; TEMP 35.3–37.7; O2SAT 91–94
[2021-11-26] MEDS: Acetaminophen 325 MG TAB 650 MG PO ×2 (00:27→07:53)
[2021-11-26] MEDS: Levothyroxine 50 MCG TAB PO (05:29)
[2021-11-26 06:15] LABS: Platelet Count 260 10^3/uL (130-400)
[2021-11-26] MEDS: QUEtiapine 50 MG TAB PO (07:53)
[2021-11-26] MEDS: Multivitamin TAB 1 TAB PO (07:53)
[2021-11-26] MEDS: guaiFENesin 600 MG TABCR PO ×2 (07:53→20:43)
[2021-11-26] MEDS: Benzonatate 200 MG CAP PO ×2 (07:53→20:42)
[2021-11-26] MEDS: Magnesium Oxide 400 MG TAB PO (07:53)
[2021-11-26] MEDS: LORazepam 0.5 MG TAB PO ×2 (07:53→20:43)
[2021-11-26] MEDS: Folic Acid 1 MG TAB PO (07:53)
[2021-11-26] MEDS: Normal Saline Flush 10 ML SYR IVP ×3 (07:54→17:47)
[2021-11-26] MEDS: Pantoprazole 40 MG VIAL IVP (09:13)
[2021-11-26] MEDS: AMPICILLIN/SULBACTAM 3 GM in Normal Saline 100 ML IVPB ×2 (10:40→22:04)
--- NOTE | 2021-11-26 10:44 | PT.INNT ---
Date of service: 11/26/21 Time of Service: 10:44 PT Notes Visit Reasons: Severe Anemia,ITZEL,Left Pneumonia with Hypoxemia Attempted PT evaluation as requested via Dr Mark this morning however patient was sleeping and was unable to arouse to follow even simple commands.
--- NOTE | 2021-11-26 16:50 | W.PM.PROGNOT ---
Date of Service Date of service: 11/26/21 Time of Service: 16:50 Assessment and Plan Assessment and plan (1) Sepsis: Status: Acute Assessment and plan: Due to PNA, present on admission. Resolved. (2) Rapid atrial fibrillation: Status: Acute Assessment and plan: Now on po metoprolol HR 85 - 91 today BP generally controlled. Serial troponins were neg. Echo: Est. EF of 59%. Normal left ventricular wall thickness and chamber size, mild to mod tricuspid regurgitation.. (3) Pneumonia: Status: Acute Assessment and plan: Present on admission. As above LIkely d/t aspiration. Hypoxia resolved. Now on RA. Finished course of antibiotic (4) Acute respiratory failure with hypoxia: Status: Acute Assessment and plan: Due to PNA, present on admission. Now resolved. 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 Improving; moving back to baseline mentation. Continue scheduled and prn benzodiazepines. If becomes rigid, the concern for malignant catatonia would warrant a transfer to [facility] for emergent ECT. It is reassuring that her CPK has declined. Dr Johnson consulted earlier in this hospitalization. (6) Anemia: Status: Acute Assessment and plan: S/p 2 units pRBCs - H/H improved but then decreased again to 6.5 No active bleeding noted. Stool heme negative. Transfused 1 unit pRBCs and Hgb 9.5 > 10.0 Microcytic. Has iron deficiency. B12/folate are actually high. Heme negative in the ED. S/p venofer dose. May require outpatient GI workup. Continue to monitor CBC. CT Abd/pelvis w/o acute findings. No retroperitoneal bleed. (7) Acute kidney injury superimposed on chronic kidney disease: Status: Resolved Assessment and plan: ?Dehydration vs lithium toxicity. Creatinine 1.1 - 1.2; at baseline. Sodium normalized. Now off IV fluids. No evidence of obstructive uropathy on CT. Payan catheter had to be reinserted for urinary retentioN (>950 ccs came out). (8) Bipolar 2 disorder: Assessment and plan: Continue seroquel. Read discussion above (9) Fall: Status: Acute Assessment and plan: PT/OT consult; mental status improving. (10) DVT prophylaxis: Status: Acute Assessment and plan: TEDs. No chemica DVT ppx given unclear etiology of her anemia. (11) Discharge planning issues: Status: Acute Assessment and plan: Now DNR/DNI. Met with ethics team and discussed her advanced directive. Phone conversation with Mey Milligan, Fill Plant Operator of the [place] Ethics Committee. The AD created by patient previously cannot be changed by her daughter who is her guardian. Her code status will stand; DNR/DNI. Her daughter was informed and is OK with the decision. Subjective Subjective Patient reports: feels better, tolerating a regular diet and afebrile; denies nausea, vomiting or shortness of breath Interval history since last seen: Pt is more conversational today. Exam Narrative Exam Narrative: Gen:Lying on side with upper body raised. Pleasant and cooperative. Resp: Lungs clear. No increased work of breathing. No cough during my visit. CV: RRR. Ext: No edema. Warm/dry. Psych: Affect normal. Smiling. Objective Last Vital Signs Temp 36.7 C 11/26/21 11:45 Pulse 87 11/26/21 15:08 Resp 22 11/26/21 11:45 BP 115/72 11/26/21 11:45 Pulse Ox 92 11/26/21 11:45 Laboratory Results - last 24 hr 11/26/21 05:30 Plt Count 260
[2021-11-26] MEDS: ACETAMINOPHEN 1,000 MG/100 ML BTL 400 MG IVPB (17:46)
[2021-11-26] MEDS: Carvedilol 6.25 MG TAB PO (20:43)
[2021-11-26] MEDS: QUEtiapine 100 MG TAB 150 MG PO (20:43)
[2021-11-26] MEDS: Pantoprazole 40 MG TABCR PO (20:43)
[2021-11-26] MEDS: Melatonin 3 MG TAB PO (22:05)
[2021-11-27] VITALS (7 sets, daily range): BP systolic 126–158; BP diastolic 61–85; PULSE 74–95; RESP 16–22; TEMP 36.4–37.1; O2SAT 93–96
[2021-11-27] MEDS: Levothyroxine 50 MCG TAB PO (06:22)
[2021-11-27] MEDS: Normal Saline Flush 10 ML SYR IVP ×2 (07:12→20:25)
[2021-11-27] MEDS: ACETAMINOPHEN 1,000 MG/100 ML BTL 400 MG IVPB (07:12)
[2021-11-27] MEDS: Pantoprazole 40 MG TABCR PO (09:52)
[2021-11-27] MEDS: Multivitamin TAB 1 TAB PO (09:52)
[2021-11-27] MEDS: Folic Acid 1 MG TAB PO (09:52)
[2021-11-27] MEDS: guaiFENesin 600 MG TABCR PO (09:53)
[2021-11-27] MEDS: Cholecalciferol (Vitamin D3) 1,000 UNIT TAB 2000 UNITS PO (09:53)
[2021-11-27] MEDS: LORazepam 0.5 MG TAB PO (09:53)
[2021-11-27] MEDS: Carvedilol 6.25 MG TAB PO (09:53)
[2021-11-27] MEDS: QUEtiapine 50 MG TAB PO (09:53)
[2021-11-27] MEDS: Magnesium Oxide 400 MG TAB PO (09:53)
--- NOTE | 2021-11-27 10:38 | PGE_ITS ---
Date of Service Date of service: 11/27/21 Time of Service: 10:38 Assessment and Plan Assessment and plan (1) Sepsis: Status: Acute Assessment and plan: Due to PNA, present on admission. Resolved. (2) Rapid atrial fibrillation: Status: Acute Assessment and plan: Now on po metoprolol HR controlled. BP generally controlled. Serial troponins were neg. Echo: Est. EF of 59%. Normal left ventricular wall thickness and chamber size, mild to mod tricuspid regurgitation.. (3) Pneumonia: Status: Acute Assessment and plan: Present on admission. As above LIkely d/t aspiration. Hypoxia resolved. Now on RA. Finished course of antibiotic (4) Acute respiratory failure with hypoxia: Status: Acute Assessment and plan: Due to PNA, present on admission. Now resolved. 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 Improving; moving back to baseline mentation. Continue scheduled and prn benzodiazepines. If becomes rigid, the concern for malignant catatonia would warrant a transfer to [facility] for emergent ECT. It is reassuring that her CPK has declined. Dr Johnson consulted earlier in this hospitalization. (6) Anemia: Status: Acute Assessment and plan: S/p 2 units pRBCs - H/H improved but then decreased again to 6.5 No active bleeding noted. Stool heme negative. Transfused 1 unit pRBCs and Hgb 9.5 > 10.0 Microcytic. Has iron deficiency. B12/folate are actually high. Heme negative in the ED. S/p venofer dose. May require outpatient GI workup. Continue to monitor CBC. CT Abd/pelvis w/o acute findings. No retroperitoneal bleed. (7) Acute kidney injury superimposed on chronic kidney disease: Status: Resolved Assessment and plan: ?Dehydration vs lithium toxicity. Creatinine 1.1 - 1.2; at baseline. Sodium normalized. Now off IV fluids. No evidence of obstructive uropathy on CT. Payan catheter had to be reinserted for urinary retentioN (>950 ccs came out). (8) Bipolar 2 disorder: Assessment and plan: Continue seroquel. Read discussion above (9) Fall: Status: Acute Assessment and plan: PT/OT consult; mental status improving. (10) DVT prophylaxis: Status: Acute Assessment and plan: TEDs. No chemica DVT ppx given unclear etiology of her anemia. (11) Discharge planning issues: Status: Acute Assessment and plan: Now DNR/DNI. Met with ethics team and discussed her advanced directive. Phone conversation with Mey Milligan, Beef Cattle Specialist of the [place] Ethics Committee. The AD created by patient previously cannot be changed by her daughter who is her guardian. Her code status will stand; DNR/DNI. Her daughter was informed and is OK with the decision. (12) Diarrhea: Status: Acute Assessment and plan: Frequent loose stools causing scalding skin of buttocks. Recheck C.Diff (previously negative). Place on lactose free diet; may have primary or secondary intolerance. Flexseal rectal tube placed. Subjective Subjective Patient reports: still having pain (buttocks; irritated skin), tolerating a regular diet, diarrhea and afebrile; denies nausea, vomiting or shortness of breath Exam Narrative Exam Narrative: Gen:Appears uncomfortable. Resp: Lungs clear. No increased work of breathing. No cough during my visit. CV: RRR. Ext: No edema. Warm/dry. Skin: Erythema, scaled appearing skin, of R and L buttocks. Psych: Affect normal. Smiling. Objective Last Vital Signs Temp 36.4 C L 11/27/21 07:20 Pulse 87 11/27/21 07:22 Resp 22 11/27/21 07:20 BP 158/85 H 11/27/21 07:20 Pulse Ox 93 11/27/21 07:20
--- NOTE | 2021-11-27 10:48 | PT.INNT ---
Date of service: 11/27/21 Time of Service: 10:48 PT Notes Visit Reasons: Severe Anemia,ITZEL,Left Pneumonia with Hypoxemia Attempted PT evaluation this morning. Unable to complete. Spoke with Dr Mark will hold IE until Sunday allowing her mental status to improve and improved level of pain. Patient was unable to follow simple command this morning.
[2021-11-27 11:58] LABS: Anion Gap 8.8 mmol/L (3-11); BUN 18 mg/dL (7-18); CO2 25.2 mmol/L (21.0-32.0); CREATININE 1.1 mg/dL (0.55-1.02); Calcium 8.6 mg/dL (8.5-10.1); Chloride 107 mmol/L (98-107); Estimated GFR 47.55 (mL/min/1.73m2); Glucose 133 mg/dL (74-106); Potassium 3.8 mmol/L (3.5-5.1); Sodium 141 mmol/L (136-145)
[2021-11-27 12:13] LABS: C Diff PCR Negative (Negative)
[2021-11-27] MEDS: Ondansetron 4 MG TAB PO (15:26)
[2021-11-28] MEDS: Melatonin 3 MG TAB PO (00:05)
[2021-11-28] MEDS: LORazepam 1 MG TAB PO (00:05)
[2021-11-28] MEDS: Acetaminophen 325 MG TAB 650 MG PO ×2 (00:05→18:21)
[2021-11-28 04:26] VITALS: BP 125/75; PULSE 88; RESP 16; TEMP 36.7; O2SAT 96
[2021-11-28 07:11] LABS: HCT 30.9 % (36.0-46.0); HGB 9.1 g/dL (11.2-15.7)
[2021-11-28 07:43] VITALS: BP 129/75; PULSE 73; RESP 17; TEMP 36.3; O2SAT 92
[2021-11-28] MEDS: Docusate Sodium 100 MG CAP PO (07:50)
[2021-11-28] MEDS: Multivitamin TAB 1 TAB PO (07:50)
[2021-11-28] MEDS: QUEtiapine 50 MG TAB PO (07:50)
[2021-11-28] MEDS: Pantoprazole 40 MG TABCR PO (07:50)
[2021-11-28] MEDS: Benzonatate 200 MG CAP PO ×2 (07:50→14:36)
[2021-11-28] MEDS: Folic Acid 1 MG TAB PO (07:50)
[2021-11-28] MEDS: Magnesium Oxide 400 MG TAB PO (07:51)
[2021-11-28] MEDS: Carvedilol 6.25 MG TAB PO ×2 (07:51→20:51)
[2021-11-28] MEDS: Cholecalciferol (Vitamin D3) 1,000 UNIT TAB 2000 UNITS PO (07:51)
[2021-11-28] MEDS: LORazepam 0.5 MG TAB PO ×2 (07:51→20:50)
[2021-11-28] MEDS: guaiFENesin 600 MG TABCR PO (07:51)
[2021-11-28] MEDS: Polyethylene Glycol 3350 17 GM PACKET PO (08:01)
[2021-11-28 11:19] VITALS: BP 136/80; PULSE 94; RESP 18; TEMP 37; O2SAT 93
--- NOTE | 2021-11-28 12:41 | W.PM.PROGNOT ---
Date of Service Date of service: 11/28/21 Time of Service: 12:41 Assessment and Plan Assessment and plan (1) Bipolar 2 disorder: Assessment and plan: Continue current dose of Seroquel and lorazepam. See discussion under toxic metabolic encephalopathy Professional time spent interviewing and examining patient, discussion of goals of care with hospital team (care management, nursing and consulting professionals) was 45 minutes. 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 Improving; moving back to baseline mentation. Continue scheduled and prn benzodiazepines. If becomes rigid, the concern for malignant catatonia would warrant a transfer to [facility] for emergent ECT. It is reassuring that her CPK has declined. Dr Johnson consulted earlier in this hospitalization. (3) Diarrhea: Status: Acute Assessment and plan: Frequent loose stools causing scalding skin of buttocks. Recheck C.Diff was negative. Place on lactose free diet; may have primary or secondary intolerance. Flexseal rectal tube placed but patient pulled this out. We will leave the Flexi-Seal rectal tube out for now. Continue to wear depends with frequent cleanout. Stools are becoming more formed. Continue use of Lomotil. (4) Anemia: Status: Acute Assessment and plan: S/p 2 units pRBCs - H/H improved but then decreased again to 6.5 No active bleeding noted. Stool heme negative. Transfused 1 unit pRBCs and Hgb 9.5 > 10.0 >9.1 Microcytic. Has iron deficiency. B12/folate are actually high. Not currently on iron supplementation but did receive venofer 300 mg x 1 dose. I will give her an additional dose of venofer 300 mg Heme negative in the ED. S/p venofer dose. May require outpatient GI workup. Currently on Protonix 40 mg twice a day. Continue to monitor CBC. CT Abd/pelvis w/o acute findings. No retroperitoneal bleed. (5) Acute kidney injury superimposed on chronic kidney disease: Status: Resolved Assessment and plan: ?Dehydration vs lithium toxicity. Creatinine 1.1 - 1.2; at baseline. Sodium normalized. Now off IV fluids. No evidence of obstructive uropathy on CT. Payan catheter had to be reinserted for urinary retentioN (>950 ccs came out). (6) Rapid atrial fibrillation: Status: Acute Assessment and plan: Now on po metoprolol 12.5 mg p.o. twice daily. She is no longer on telemetry but palpated pulses are in the 90s. I will increase the dose to 12.5 mg 3 times daily and hopefully consolidate to a long-acting metoprolol over the next 24 to 48 hours prior to her discharge. HR controlled. BP generally controlled. Serial troponins were neg. Echo: Est. EF of 59%. Normal left ventricular wall thickness and chamber size, mild to mod tricuspid regurgitation.. (7) Sepsis: Status: Resolved Assessment and plan: Due to PNA, present on admission. Patient was treated with ceftriaxone from 11/19/2021 through 11/21/2021 and then Unasyn 11/21/2021 through 11/27/2021. We will get a follow-up chest x-ray Resolved. (8) Pneumonia: Status: Acute Assessment and plan: Present on admission. As above LIkely d/t aspiration. Hypoxia resolved. Now on RA. Finished course of antibiotic (ceftriaxone followed by Unasyn, see comments under sepsis) (9) Acute respiratory failure with hypoxia: Status: Acute Assessment and plan: Due to PNA, present on admission. Now resolved. Not requiring oxygen therefore I have discontinued her orders for supplemental oxygen (10) Fall: Status: Acute Assessment and plan: PT/OT consult; mental status improving. PT was put on hold yesterday because of her mental status. Patient is much more alert although only oriented to person. She is more cooperative today. I will order PT to resume tomorrow morning. (11) DVT prophylaxis: Status: Acute Assessment and plan: TEDs. No chemica DVT ppx given unclear etiology of her anemia. (12) Discharge planning issues: Status: Acute Assessment and plan: Now DNR/DNI. Met with ethics team and discussed her advanced directive. Phone conversation with Mey Milligan, Coin Machine Mechanic of the [place] Ethics Committee. The AD created by patient previously cannot be changed by her daughter who is her guardian. Her code status will stand; DNR/DNI. Her daughter was informed and is OK with the decision. Subjective Subjective Patient reports: no new complaints and tolerating a regular diet Interval history since last seen: Per nursing she is eating 75% of her breakfast and 100% of her lunch. Seems to be taking her medications. Since the change in her bipolar disorder medications were made by Dr. Mark at the recommendation of Dr. Johnson patient's mood and behavior have improved. She is now on Scheduled dose of lorazepam 0.5 mg twice daily along with as needed dosing of lorazepam 1 mg twice daily as needed. She is also on Seroquel 150 mg each evening and 50 mg daily. Exam Narrative Exam Narrative: Elderly male who is lying in bed alert and oriented only to person. Initially when I asked how she is she said not good but when I asked her to specify what is wrong she could not tell me. However says her family came in the visit she was smiling and responding to them. Lungs are clear to auscultation. Heart is irregularly irregular at a controlled rate, she is currently not on any telemetry. Abdomen is soft nondistended nontender normal bowel sounds Extremities without peripheral cyanosis or edema. Buttocks were examined she has some slight pinkness to her butt cheeks but there is no open ulcers. She has depends diapers on and has some incontinence of bowel movement with soft semiformed stool is dark brown but not black. Objective Last Vital Signs Temp 37.0 C 11/28/21 11:19 Pulse 94 H 11/28/21 11:19 Resp 18 11/28/21 11:19 BP 136/80 11/28/21 11:19 Pulse Ox 93 11/28/21 11:19 Laboratory Results - last 24 hr 11/28/21 06:05 Hgb 9.1 L Hct 30.9 L
[2021-11-28 14:23] VITALS: BP 129/79; PULSE 88; RESP 18; TEMP 36.6; O2SAT 92
[2021-11-28] MEDS: Metoprolol 12.5 MG TAB PO ×2 (14:36→20:49)
[2021-11-28] MEDS: Normal Saline 500 ML IV (14:37)
[2021-11-28] MEDS: IRON SUCROSE COMPLEX 300 MG in Normal Saline 250 ML 167 MG IVPB (14:37)
[2021-11-28] MEDS: Normal Saline Flush 10 ML SYR IVP (14:37)
[2021-11-28] MEDS: QUEtiapine 100 MG TAB 150 MG PO (20:49)
[2021-11-28 22:42] VITALS: BP 128/78; PULSE 81; RESP 18; TEMP 36.6; O2SAT 90
[2021-11-29 03:45] VITALS: BP 134/70; PULSE 78; RESP 18; TEMP 36.6; O2SAT 92
[2021-11-29] MEDS: Levothyroxine 50 MCG TAB PO (05:44)
[2021-11-29 08:05] VITALS: BP 147/74; PULSE 77; RESP 21; TEMP 37; O2SAT 93
[2021-11-29] MEDS: Metoprolol 12.5 MG TAB PO ×3 (09:14→19:50)
[2021-11-29] MEDS: Folic Acid 1 MG TAB PO (09:14)
[2021-11-29] MEDS: Pantoprazole 40 MG TABCR PO ×2 (09:14→19:49)
[2021-11-29] MEDS: Carvedilol 6.25 MG TAB PO ×2 (09:14→19:48)
[2021-11-29] MEDS: QUEtiapine 50 MG TAB PO (09:14)
[2021-11-29] MEDS: Benzonatate 200 MG CAP PO ×3 (09:15→19:52)
[2021-11-29] MEDS: LORazepam 0.5 MG TAB PO (09:15)
[2021-11-29] MEDS: Cholecalciferol (Vitamin D3) 1,000 UNIT TAB 2000 UNITS PO (09:15)
[2021-11-29] MEDS: Magnesium Oxide 400 MG TAB PO (09:15)
[2021-11-29] MEDS: guaiFENesin 600 MG TABCR PO ×2 (09:15→19:53)
[2021-11-29] MEDS: Multivitamin TAB 1 TAB PO (09:15)
--- NOTE | 2021-11-29 09:30 | PT.INIE ---
PT Notes Visit Reasons: Severe Anemia,ITZEL,Left Pneumonia with Hypoxemia Inpatient Physical Therapy Evaluation Date: 11/29/2021 Referring Doctor: Krishan Dasilva MD PT Orders: PT CONSULT: Extend his stay?weakness Precautions: Fall Patient Profile/Admitting Diagnosis: 81-year-old female who was admitted on 11/19/2021 and with bipolar disorder with altered mental status and fall. PMHX: All Active Problems?(Updated 11/19/21 @ 06:37 by Heladio Gold) Hypoxemia (Acute) ITZEL (acute kidney injury) (Acute) Anemia (Acute) Fall (Acute) Altered mental status (Acute) Pneumonia (Acute) Asymmetrical sensorineural hearing loss (Acute) Anxiety (Chronic) Sensorineural hearing loss, bilateral (Acute) Knee pain, right (Acute) Hip pain, right (Acute) Anemia (Chronic) Acute kidney injury superimposed on chronic kidney disease (Acute) Encephalopathy acute (Acute) Multiple fractures of ribs (Acute 12/09/13) Hearing loss (Chronic) Chronic kidney disease, stage III (moderate) (Chronic 09/26/11) 08/25/2016 [facility] [place] consult: JOSE-I or ARB not recommended for this pt DJD (degenerative joint disease), lumbar (Acute 12/26/13) x-ray 12/2013 DVT (deep venous thrombosis) (Acute 12/08/13) 09/2013 L at OSH, (confirmed 11/2013 [facility] pt off therapy) RX Xarelto Depressive disorder (Acute 11/11/12) Dr. Esther Heath, Psychiatrist Multiple hospitalizations Psych dx's: unipolar vs. 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 With Catatonia. S/P multiple psychiatric admissions.? On [facility], Lorazepam, Nortriptyline and Quetiapine as an out-patient, unclear doses.Hypertension (Chronic) Hyperlipidemia (Chronic) Hypothyroidism (Chronic) Constipation (Chronic) Medical History? Bipolar 2 disorder (01/30/17) Per Dr. 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 Surgical History? S/P ORIF (open reduction internal fixation) fracture Social History/Home Situation: Patient notes that she lives in a private home with her and is visited frequently by her daughter for healthcare etc. She does not elaborate regarding the home set up with questioning. She states that she was walking without assistive device around the home. Current Functional Limitations: Requires assistance with all ADLs Equipment Owned/DME: None mentioned Subjective: Lying on her side eating breakfast when I entered the room. She appears comfortable Objective: General Observation: Hard of hearing, and frequently mentioning that she is not allowed to get out of bed Mental Status: Alert and oriented to time Pain: No complaints of pain offered upon questioning Vital Signs: O2 sat is 84% and pulse is 85 bpm ROM: She is functional pain-free range of motion of her articular structures other than some mild crepitation of the right shoulder with movement Strength: She has full motor control throughout but strength is generally rated 2-3/5 Neuro: Reflexes were not tested. Patient not following simple commands such as rapid repetitive arm movements, fingertips to nose, etc. Bed Mobility/Transfers: Requires moderate assist with assuming the side-lying to sitting position and vice versa, maximal assist of 3 people to adjust her in bed alignment, and moderate assist of 2 people when assuming a sitting to standing position with a walker Gait: She refused to walk or march in place Balance: Static Sitting: Fair with standby supervision Dynamic Sitting: Poor frequently lies back on her left elbow Static Standing: Poor with contact guarding of 2 people Dynamic Standing: Poor Special Tests: Mobility Limitations Standardized Measure [facility] 6 clicks Basic Mobility Inpatient Short Form: Raw Score: 9 standardized Score: 4.04 CMS Score: 86.62% Informed Consent/Education: Patient instructed in purpose of PT consult and plan of care. Assessment: Patient is a 81year old female referred to physical therapy services with the diagnosis of bipolar disorder, hypoxia, fall, pneumonia, etc.. Patient presents with clinical signs and symptoms consistent with these diagnoses, as demonstrated by the following impairment level findings: Weakness throughout resulting in significant assistance with all bed mobility activities, standing and inability to walk. Patient is assessed as a High 51023 complexity based on the following: History: See comorbidities and social history Examination: See above for functional limitations impairments Presentation: Unstable Decision Making: High complexity based on her clinical findings Goals: Goals X1 week 1. Supine-Sit minimal assist 2. Sit-Supine minimal assist 3. Sit-Stand moderate assist 4. Stand-Sit minimal assist 5. Bed-Chair moderate assist 6. Chair-Bed moderate assist 7. Gait ambulation with an FW W for 5 to 10 feet with contact guarding Plan of Care/Treatment Plan: 1-2x/day, 7 days/week x 1 week. Plan of care has been reviewed with the PATIENT'S LIBRARIAN providing the service under Physical Therapy direction. Initiate Physical Therapy intervention for strengthening, bed mobility, transfers, gait, stairs, balance training, use of assistive device. DISCHARGE RECOMMENDATIONS: [employer] [facility] TREATMENT CODE/TIME: 9716 3/45 minutes Disclaimer: This note was created using [employer] voice recognition software. It was reviewed for major content. However, there may be multiple small discrepancies and errors due to the voice recognition aspects of the software.
--- NOTE | 2021-11-29 09:33 | PDOC.CMPRO ---
- If Service Date Differs Date of service: 11/29/21 Time of Service: 09:33 Care Management Progress Note S/O: Stacy was resting when CM met with her. CM called her daughter, Lulvia to discuss potential discharge plans. She stated that her plan is to bring her mother home, although she is concerned about restarting Stacy's [place], as she stated that this is generally a taper (when this has happened in the past), and often she is psychiatrically hospitalized for the taper. CM explained that this is not offered at [facility], and that the providers have reached out to [facility] multiple times during this admission, and have not been successful at having her transferred. Lluvia requested that Dr. Cardenas is contacted by the hospitalist to discuss the psychiatric medications. CM will attempt to connect Dr. Cardenas to the Hospitalist tomorrow morning, as he was not available after speaking to Lluvia. Lluvia also stated that Stacy was complaining of pain today. CM will provide this information to the MD. CM will continue to follow. A: Stacy is an 81 year old female admitted to [facility] on 11/19/21 with severe anemia, ITZEL, L pneumonia w/hypoxemia. P: Plan is undetermined at this time as it is dependent on Stacy' progress. She continues to be closely monitored and treated. Stacy may require transfer to [facility] for ECT treatment. CM will continue to follow.
[2021-11-29 11:45] VITALS: BP 126/70; PULSE 74; RESP 22; TEMP 36.8; O2SAT 94
[2021-11-29] MEDS: Acetaminophen 325 MG TAB 650 MG PO ×2 (13:30→18:01)
--- NOTE | 2021-11-29 13:30 | PTTR_ITS ---
Date of service: 11/29/21 Time of Service: 12:53 PT Notes Visit Reasons: Severe Anemia,ITZEL,Left Pneumonia with Hypoxemia Inpatient Physical Therapy Treatment Note [facility] Date: 11/29/2021 PRECAUTIONS: Fall, activity as tolerated, confusion, Bipolar SUBJECTIVE: Stacy reports that she hurts all over. She repeatedly states I can't do it, I can't do it. Patient's daughter is present at time of session and encourages her to participate in PT and get out of bed. OBJECTIVE: PAIN: Patient c/o hip pain with all activity. She reports I hurt all over multiple times throughout the session. BED MOBILITY/TRANSFERS Rolling L/R: CGA Supine-sit: CGA Sit-supine: CGA Sit-stand: CGA x2 Stand-sit: CGA x2 GAIT Assistive Device: AUTOMOTIVE GLASS SPECIALIST x2 Weight bearing: Full Assist: CGA x2 Distance: 15' + 5' Deviation: Cueing for improved posture and for task reorientation VITALS: Checked by nursing during session, all WNL. THEREX: Patient was instructed in LAQ exercise, completed in a seated position, ~x10 bialterally. ASSESSMENT: Patient tolerated session with c/o R LE pain with all activity. She requires AUTOMOTIVE GLASS SPECIALIST x2/CGA x2 for safety due to confusion, as well as global weakness. PLAN: Continue with global strengthening and mobility training, as tolerated for improved activity tolerance and mobility. TREATMENT CODE/TIME: 32 minutes; 94379 x2 (12:53)
[2021-11-29 15:07] VITALS: BP 124/80; PULSE 66; RESP 20; TEMP 36.6; O2SAT 94
--- NOTE | 2021-11-29 17:01 | PGE_ITS ---
Date of Service Date of service: 11/29/21 Time of Service: 17:01 Assessment and Plan Assessment and plan (1) Bipolar 2 disorder: Assessment and plan: Increase her dose of Seroquel and lorazepam. See discussion under toxic metabolic encephalopathy. Unclear as to why her lithim was discontinued. Her levels have either been therapeutic or subtherapeutic. She did initially present w/ sepsis and ITZEL and therefore there was legitimate concern for lithium toxicity however her highest levels were 0.8 which is therapeutic. I will discuss w/ Dr. Cardenas restarting her dose. Her home dose was Eskolith 300 mg at [facility] Professional time spent interviewing and examining patient, discussion of goals of care with hospital team (care management, nursing and consulting professionals) was 20 minutes. 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 Improving; moving back to baseline mentation. Continue scheduled and prn benzodiazepines. I have increased her lorazepam scheduled dose to 1 mg bid and kept her prn dose at 1 mg bid prn agitation. I have increased her Seroquel 100 mg qam and left her evening dose at 150 mg. If becomes rigid, the concern for malignant catatonia would warrant a [place] [facility] [place]. It is reassuring that her CPK has declined. Dr Johnson consulted earlier in this hospitalization. CM will try to facilitate phone conversation w/ me and Dr. Cardenas, the patient's psychiatrist at [facility] (3) Diarrhea: Status: Resolved Assessment and plan: Frequent loose stools causing scalding skin of buttocks however this is improving. I examined her buttocks w/ her nurse Anabelle and the skin is improving using the current barrier cream. Recheck C.Diff was negative. Place on lactose free diet; may have primary or secondary intolerance. Flexseal rectal tube placed but patient pulled this out. We will leave the Flexi-Seal rectal tube out for now. Continue to wear depends with frequent cleanout. Stools are becoming more formed. Continue use of Lomotil. (4) Anemia: Status: Acute Assessment and plan: S/p 2 units pRBCs - H/H improved but then decreased again to 6.5 No active bleeding noted. Stool heme negative. Transfused 1 unit pRBCs and Hgb 9.5 > 10.0 >9.1 Microcytic. Has iron deficiency. B12/folate are actually high. Not currently on iron supplementation but did receive venofer 300 mg x 1 dose. I will give her an additional dose of venofer 300 mg Heme negative in the ED. S/p venofer dose. May require outpatient GI workup. Currently on Protonix 40 mg twice a day. Continue to monitor CBC. CT Abd/pelvis w/o acute findings. No retroperitoneal bleed. (5) Acute kidney injury superimposed on chronic kidney disease: Status: Resolved Assessment and plan: ?Dehydration vs lithium toxicity. Creatinine 1.1 - 1.2; at baseline. Sodium normalized. Now off IV fluids. No evidence of obstructive uropathy on CT. Payan catheter had to be reinserted for urinary retentioN (>950 ccs came out). (6) Rapid atrial fibrillation: Status: Acute Assessment and plan: Now on po metoprolol 12.5 mg p.o. twice daily. She is no longer on telemetry but palpated pulses are in the 90s. I will increase the dose to 12.5 mg 3 times daily and hopefully consolidate to a long-acting metoprolol over the next 24 to 48 hours prior to her discharge. HR controlled. BP generally controlled. Serial troponins were neg. Echo: Est. EF of 59%. Normal left ventricular wall thickness and chamber size, mild to mod tricuspid regurgitation.. (7) Sepsis: Status: Resolved Assessment and plan: Due to PNA, present on admission. Patient was treated with ceftriaxone from 11/19/2021 through 11/21/2021 and then Unasyn 11/21/2021 through 11/27/2021. We will get a follow-up chest x-ray Resolved. (8) Pneumonia: Status: Acute Assessment and plan: Present on admission. As above LIkely d/t aspiration. Hypoxia resolved. Now on RA. Finished course of antibiotic (ceftriaxone followed by Unasyn, see comments under sepsis) (9) Acute respiratory failure with hypoxia: Status: Acute Assessment and plan: Due to PNA, present on admission. Now resolved. Not requiring oxygen therefore I have discontinued her orders for supplemental oxygen (10) Fall: Status: Acute Assessment and plan: PT/OT consult; mental status improving. PT was put on hold yesterday because of her mental status. Patient is much more alert although only oriented to person. She is more cooperative today. I will order PT to resume tomorrow morning. (11) DVT prophylaxis: Status: Acute Assessment and plan: TEDs. No chemica DVT ppx given unclear etiology of her anemia. (12) Discharge planning issues: Status: Acute Assessment and plan: Now DNR/DNI. Met with ethics team and discussed her advanced directive. Phone conversation with Mey Milligan, Nature [employer] of the [place] Ethics Committee. The AD created by patient previously cannot be changed by her daughter who is her guardian. Her code status will stand; DNR/DNI. Her daughter was informed and is OK with the decision. Subjective Subjective Interval history since last seen: Stacy reportedly had a good morning this day feeding herself breakfast and lunch however this afternoon she has become agitated restless complaining not feeling right but not being very specific just hurting all over. Her nurse Anabelle gave her one of her as needed doses of lorazepam. Per my discussion with case management the daughter is concerned that she has been off her lithium. Her daughter would like a phone conversation between the hospitalist service and the patient's own psychiatrist Dr. Cardenas. room manager will try to facilitate this tomorrow. Exam Narrative Exam Narrative: Patient is tearful appears to be frightened but is unable to pinpoint her concerns or her discomfort. Lungs are clear to auscultation Heart regular rate and rhythm Abdomen she is found holding her abdomen but her abdomen is soft nondistended patient had a good bowel movement and that her nurse just cleaned her up for the bowel movement. Extremities without edema Objective Last Vital Signs Temp 36.6 C 11/29/21 15:07 Pulse 66 11/29/21 15:07 Resp 20 11/29/21 15:07 BP 124/80 11/29/21 15:07 Pulse Ox 94 11/29/21 15:07
[2021-11-29] MEDS: LORazepam 1 MG TAB PO (18:00)
[2021-11-29 19:20] VITALS: BP 125/80; PULSE 66; RESP 22; TEMP 36.7; O2SAT 94
[2021-11-29] MEDS: QUEtiapine 100 MG TAB 150 MG PO (19:49)
[2021-11-29] MEDS: LORazepam 0.5 MG TAB 1 MG PO (20:03)
[2021-11-29] MEDS: Normal Saline Flush 10 ML SYR IVP (20:07)
[2021-11-29 22:52] VITALS: BP 138/82; PULSE 82; RESP 20; TEMP 36.6; O2SAT 93
[2021-11-30] MEDS: LORazepam 1 MG TAB PO (02:11)
[2021-11-30 03:20] VITALS: BP 104/66; PULSE 65; RESP 20; TEMP 36.6; O2SAT 92
[2021-11-30] MEDS: Levothyroxine 50 MCG TAB PO (06:07)
[2021-11-30 07:06] LABS: Abs Immature Grans 0.03 10^3/uL (0.0-0.06); Absolute Basophil Count 0.02 10^3/uL (0.0-0.2); Absolute Eosinophil Count 0.24 10^3/uL (0.0-0.7); Absolute Lymphocyte Count 1.52 10^3/uL (1.2-3.4); Absolute Monocyte Count 0.56 10^3/uL (0.1-0.8); Absolute Neutrophil Count 3.73 10^3/uL (1.2-6.7); Basophils % 0.3; Eosinophils % 3.9; HCT 32.3 % (36.0-46.0); HGB 9.4 g/dL (11.2-15.7); Immature Grans % 0.5; Lymphocytes % 24.9; MCH 23.4 pg (27.0-33.0); MCHC 29.1 % (32.0-36.0); MCV 81 fL (80-95); Monocytes % 9.2; Neutrophils % 61.2; Platelet Count 389 10^3/uL (130-400); RBC 4.01 10^6/uL (3.93-5.22); RDW 26.2 % (11.7-14.6); RDW-SD 72.7 fL
[2021-11-30 07:07] LABS: Reticulocyte 2.3 % (0.5-2.4)
[2021-11-30 07:25] LABS: Anion Gap 10.1 mmol/L (3-11); BUN 25 mg/dL (7-18); CO2 22.9 mmol/L (21.0-32.0); CREATININE 1.4 mg/dL (0.55-1.02); Calcium 8.9 mg/dL (8.5-10.1); Chloride 106 mmol/L (98-107); Glucose 82 mg/dL (74-106); Potassium 4.1 mmol/L (3.5-5.1); Sodium 139 mmol/L (136-145)
[2021-11-30 07:34] LABS: Anisocytosis 3+; Diff Comment Diff Reviewed; Polychromasia Present
[2021-11-30 08:30] VITALS: BP 119/94; PULSE 74; RESP 20; TEMP 36; O2SAT 94
[2021-11-30] MEDS: Benzonatate 200 MG CAP PO ×2 (08:35→14:17)
[2021-11-30] MEDS: Metoprolol 12.5 MG TAB PO ×2 (08:35→14:17)
[2021-11-30] MEDS: Cholecalciferol (Vitamin D3) 1,000 UNIT TAB 2000 UNITS PO (08:36)
[2021-11-30] MEDS: QUEtiapine 50 MG TAB 100 MG PO (08:36)
[2021-11-30] MEDS: Multivitamin TAB 1 TAB PO (08:36)
[2021-11-30] MEDS: LORazepam 0.5 MG TAB 1 MG PO (08:36)
[2021-11-30] MEDS: Carvedilol 6.25 MG TAB PO (08:36)
[2021-11-30] MEDS: Pantoprazole 40 MG TABCR PO ×2 (08:37→21:41)
[2021-11-30] MEDS: Magnesium Oxide 400 MG TAB PO (08:37)
[2021-11-30] MEDS: Folic Acid 1 MG TAB PO (08:38)
[2021-11-30] MEDS: guaiFENesin 600 MG TABCR PO (08:38)
[2021-11-30] MEDS: Docusate Sodium 100 MG CAP PO (08:38)
--- NOTE | 2021-11-30 11:54 | PTTR_ITS ---
Date of service: 11/30/21 Time of Service: 10:16 PT Notes Visit Reasons: Severe Anemia,ITZEL,Left Pneumonia with Hypoxemia Inpatient Physical Therapy Treatment Note [facility] Date: 11/30/2021 PRECAUTIONS: Fall, activity as tolerated, confusion, Bipolar disorder SUBJECTIVE: Stacy reports that she just doesn't feel right. OBJECTIVE: PAIN: No c/o pain BED MOBILITY/TRANSFERS Supine-sit: CGA Sit-stand: CGA x2 Stand-sit: CGA x2 GAIT Assistive Device: COMMERCIAL CONSTRUCTION ESTIMATOR x2 Weight bearing: Full Assist: CGA x2 Distance: 5' Deviation: Slow pacing, short step height and length, task re-orientation ASSESSMENT: Patient tolerated session with unspecified complaint of just not feeling right with all activity. She requires COMMERCIAL CONSTRUCTION ESTIMATOR x2/CGA x2 for safety due to confusion, as well as global weakness. PLAN: Continue with global strengthening and mobility training, as tolerated for improved activity tolerance and mobility. TREATMENT CODE/TIME: Session 1: 13 minutes; 88039 (10:16) Session 2: Hold, patient just transferred back to bed with nursing staff
--- NOTE | 2021-11-30 13:19 | PCPN_ITS ---
Date of service: 11/30/21 Time of Service: 12:00 Assessment and Plan Assessment and plan (1) Palliative care encounter: Status: Acute Assessment and plan: The issue of CODE STATUS has been determined. Stacy clearly stated in an advanced directive that she wanted to be a DNR/DNI. Her guardian does not have the right to change this. She remains a DNR/DNI. I did explain that again to Lluvia. This has been explained to Lluvia several times. Care management is working on placement. Since Lluvia does not feel that she can take her mother home, she will need placement She continues to have a catheter in place due to her renal insufficiency. Her lithium has not been restarted. This may be restarted outpatient Lluvia did give me a piece of paper from the court stating that she has the righ t to order ECT treatments if she feels that that is her mother's best option and all other options have been tried. This will be scanned into our system. I am not sure how this works as Stacy today clearly stated she did not want to do this ECT anymore. Lluvia says she hates going through it and that her resiliency is less. If Stacy clearly refuses ECT treatment, and Lluvia clearly states that she should have it, I would recommend reconsulting us so that we can determine if the legal paper Lluvia has allows for Stacy is wishes to not be honored (2) Acute kidney injury superimposed on chronic kidney disease: Status: Resolved (3) Pneumonia: Status: Acute Subjective Subjective Interval history since last seen: Per staff Stacy is doing quite well. She is alert and oriented. Physical therapy feels that she is moving well. She still has a catheter in place. Her lithium has not been restarted and at this point there does not appear to be an indication to do so. Her daughter again contacted me and states that she wants Stacy to be a full code despite the ethics committee finding that it was unethical to have changed her status from DNR to full code as it was clearly spelled out that she wanted to be a DNR/DNI. Stacy is sitting in her hospital chair eating fruit. She did answer my questions. Exam Narrative Exam Narrative: Stacy states that she wants to stay in the hospital longer. She does not remember meeting me last week. Her heart is regular. Her lungs little air movement but was difficult to get her to breathe so I could auscultate her. She looked depressed but was able to smile at times Objective Last Vital Signs Temp 96.8 F L 11/30/21 08:30 Pulse 74 11/30/21 08:30 Resp 20 11/30/21 08:30 BP 119/94 H 11/30/21 08:30 Pulse Ox 94 11/30/21 08:30 Laboratory Results - last 24 hr 11/30/21 11/30/21 11/30/21 06:10 06:10 06:10 WBC 6.10 RBC 4.01 Hgb 9.4 L Hct 32.3 L MCV 81 MCH 23.4 L MCHC 29.1 L RDW 26.2 H Plt Count 389 MPV 10.0 Reticulocyte % (Auto) 2.3 Immature Gran % 0.5 Neutrophils % 61.2 Lymphocytes % 24.9 Monocytes % 9.2 Eosinophils % 3.9 Basophils % 0.3 Nucleated RBC % 0.0 Absolute Neutrophils 3.73 Absolute Lymphocytes 1.52 Absolute Monocytes 0.56 Absolute Eosinophils 0.24 Absolute Basophils 0.02 RBC Morphology See Below Polychromasia Present Anisocytosis 3+ Sodium 139 Potassium 4.1 Chloride 106 Carbon Dioxide 22.9 Anion Gap 10.1 BUN 25 H Creatinine 1.4 H Estimated GFR/1.73 m2 36.00 Glucose 82 Calcium 8.9
[2021-11-30 15:31] VITALS: BP 148/86; PULSE 80; RESP 18; TEMP 36.1; O2SAT 94
--- NOTE | 2021-11-30 17:02 | CMPROGNOTE_ITS ---
- If Service Date Differs Date of service: 11/30/21 Time of Service: 17:03 Care Management Progress Note S/O: Stacy was sitting up in a chair when CM met with her, and her daughter, Lluvia, who was in the room visiting. Her RN and the provider were present. Lluvia stated that she does not feel that her mother is ready for discharge, as she would like her to get stronger prior to returning home. She asked that referrals are placed at the [facility] and the [facility]. CM sent the referrals and followed up, no bed offers today. CM talked to Lluvia later in the day, stating that if she does not have a bed offer at a sub acute rehab facility, she would be discharged, or would transition to [facility], which is private pay. Lluvia expressed understanding that Stacy will need to be discharged once she is medically cleared. The provider discussed Stacy's psychiatric medications with Dr. Cardenas, who recommended that the lithium not be restarted, as it could worsen her kidney function. Per report, she is stable on her current regiment of medications. CM will continue to follow. A: Stacy is an 81 year old female admitted to [facility] on 11/19/21 with severe anemia, ITZEL, L pneumonia w/hypoxemia. P: Stacy will return home with new RN, PT, OT, AP PROCESSOR vs SNF for continued rehab. She will transport via private vehicle vs w/c van. CM sent referrals, awaiting a bed offer. She will follow up with her PCP and discharge plan of care. CM will continue to follow.
--- NOTE | 2021-11-30 17:08 | W.PM.PROGNOT ---
Date of Service Date of service: 11/30/21 Time of Service: 17:08 Assessment and Plan Assessment and plan (1) Bipolar 2 disorder: Assessment and plan: no behavioral issues. tolerating increase her dose of Seroquel which is reviewed with DR Cardenas (her outpatient psychiatric provider, he agrees with current regimen), discussed tapering lorazepam so dose dropped to 0.5 mg bid from 1 mg bid, continue prn dosing as needed. He agrees with not restarting lithium at this time, citing her kidney function and history of lithium toxicity with relatively low levels and that she is clinically stable. 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 resolved at this time (3) Diarrhea: Status: Resolved Assessment and plan: continue barrier cream Recheck on C.Diff was negative. Placed on lactose free diet; may have primary or secondary intolerance. Continue use of Lomotil. (4) Anemia: Status: Acute Assessment and plan: S/p 3 units pRBCs with stable H&H No active bleeding noted. Stool heme negative. Has iron deficiency. B12/folate are actually high. Not currently on iron supplementation but did receive venofer 300 mg x 2 doses will give oral supplementation May require outpatient GI workup. Currently on Protonix 40 mg twice a day. CT Abd/pelvis w/o acute findings. No retroperitoneal bleed. (5) Acute kidney injury superimposed on chronic kidney disease: Status: Resolved Assessment and plan: ?Dehydration vs lithium toxicity. Creatinine 1.1 - 1.2; at baseline. Sodium normalized. Now off IV fluids. No evidence of obstructive uropathy on CT. Batista catheter had to be reinserted for urinary retentioN (>950 ccs came out). avoid nephrotoxic drugs and renal dose as needed. (6) Rapid atrial fibrillation: Status: Acute Assessment and plan: ? on lopressor and coreg. will discontinue lopressor, increase coreg dose HR controlled. BP controlled. Serial troponins were neg. Echo: Est. EF of 59%. Normal left ventricular wall thickness and chamber size, mild to mod tricuspid regurgitation.. (7) Pneumonia: Status: Acute Assessment and plan: Present on admission. As above LIkely d/t aspiration. Hypoxia resolved. Now on RA. Finished course of antibiotic (ceftriaxone followed by Unasyn, see comments under sepsis) (8) Acute respiratory failure with hypoxia: Status: Resolved Assessment and plan: Due to PNA, present on admission. Now resolved. Not requiring oxygen therefore I have discontinued her orders for supplemental oxygen (9) Fall: Status: Acute Assessment and plan: PT/OT consulted, working with them and improving (10) DVT prophylaxis: Status: Acute Assessment and plan: TEDs. No chemica DVT ppx given unclear etiology of her anemia. (11) Discharge planning issues: Status: Acute Assessment and plan: Now DNR/DNI. Met with ethics team and discussed her advanced directive. Phone conversation with Mey Milligan, T[employer] Out of the [place] Ethics Committee. The AD created by patient previously cannot be changed by her daughter who is her guardian. Her code status will stand; DNR/DNI. Palliative care is following. patient is likely at her baseline at this point, she is medically stable. She is safe for discharge and daughter is requesting rehabilitation. case management following and referrals have been placed. if not accepted will be discharged to home with home health services discussed with Dr Martino. Subjective Subjective Patient reports: no new complaints, tolerating liquids well and tolerating a regular diet Interval history since last seen: batista to gravity draining clear yellow urine. staff reports she has been walking well today and yesterday. received tylenol for generalized discomfort with good effect. no new active issues. she is hemodynamically stable and likely at her baseline. Exam Const General: cooperative, no acute distress and well developed Nutritional Appearance: average body habitus Orientation: alert, awake, oriented to person and confused [facility] Head: normal to inspection, normocephalic and atraumatic Mouth: oral mucosae normal Chest Chest: normal inspection of the chest Resp Effort & Inspection: normal respiratory effort Auscultation: clear to auscultation bilaterally Cardio Rate: regular rate Rhythm: regular rhythm GI Inspection: normal to inspection Palpation: soft Skin Lesions: other (breakdown to cocyx improving per staff report.) Rashes: no rashes Extrem General: normal to inspection, full ROM and no pedal edema Psych Appearance: grossly normal Mental Status: other (cognitive impairment) Mood: other (cognitive impairment) Affect: normal affect Attitude: cooperative Insight: poor Judgment: poor Objective Last Vital Signs Temp 36.1 C L 11/30/21 15:31 Pulse 80 11/30/21 15:31 Resp 18 11/30/21 15:31 BP 148/86 H 11/30/21 15:31 Pulse Ox 94 11/30/21 15:31 Laboratory Results - last 24 hr 11/30/21 11/30/21 11/30/21 06:10 06:10 06:10 WBC 6.10 RBC 4.01 Hgb 9.4 L Hct 32.3 L MCV 81 MCH 23.4 L MCHC 29.1 L RDW 26.2 H Plt Count 389 MPV 10.0 Reticulocyte % (Auto) 2.3 Immature Gran % 0.5 Neutrophils % 61.2 Lymphocytes % 24.9 Monocytes % 9.2 Eosinophils % 3.9 Basophils % 0.3 Nucleated RBC % 0.0 Absolute Neutrophils 3.73 Absolute Lymphocytes 1.52 Absolute Monocytes 0.56 Absolute Eosinophils 0.24 Absolute Basophils 0.02 RBC Morphology See Below Polychromasia Present Anisocytosis 3+ Sodium 139 Potassium 4.1 Chloride 106 Carbon Dioxide 22.9 Anion Gap 10.1 BUN 25 H Creatinine 1.4 H Estimated GFR/1.73 m2 36.00 Glucose 82 Calcium 8.9
[2021-11-30 19:31] VITALS: BP 133/73; PULSE 76; RESP 14; TEMP 37.3; O2SAT 92
[2021-11-30] MEDS: Carvedilol 6.25 MG TAB 12.5 MG PO (21:42)
[2021-11-30] MEDS: QUEtiapine 100 MG TAB 150 MG PO (21:42)
[2021-11-30] MEDS: LORazepam 0.5 MG TAB PO (21:42)
[2021-11-30 23:21] VITALS: BP 119/74; PULSE 72; RESP 18; TEMP 36.6; O2SAT 94
[2021-12-01 03:28] VITALS: BP 118/72; PULSE 70; RESP 18; TEMP 36.6; O2SAT 96
[2021-12-01] MEDS: Levothyroxine 50 MCG TAB PO (06:33)
[2021-12-01 09:01] VITALS: BP 133/76; PULSE 80; RESP 17; TEMP 37.2; O2SAT 93
[2021-12-01] MEDS: Pantoprazole 40 MG TABCR PO ×2 (09:04→20:23)
[2021-12-01] MEDS: QUEtiapine 50 MG TAB 100 MG PO (09:04)
[2021-12-01] MEDS: Cholecalciferol (Vitamin D3) 1,000 UNIT TAB 2000 UNITS PO (09:04)
[2021-12-01] MEDS: LORazepam 0.5 MG TAB PO ×2 (09:04→20:23)
[2021-12-01] MEDS: Multivitamin TAB 1 TAB PO (09:05)
[2021-12-01] MEDS: Ferrous Sulfate 325 MG TAB PO ×2 (09:05→20:23)
[2021-12-01] MEDS: Folic Acid 1 MG TAB PO (09:05)
[2021-12-01] MEDS: Magnesium Oxide 400 MG TAB PO (09:05)
[2021-12-01] MEDS: Carvedilol 6.25 MG TAB 12.5 MG PO ×2 (09:16→20:23)
[2021-12-01 11:22] VITALS: BP 120/73; PULSE 92; RESP 17; TEMP 36; O2SAT 92
--- NOTE | 2021-12-01 12:53 | PTTR_ITS ---
Date of service: 12/01/21 Time of Service: 08:40 PT Notes Visit Reasons: Severe Anemia,ITZEL,Left Pneumonia with Hypoxemia Inpatient Physical Therapy Treatment Note [facility] Date: 12/01/2021 PRECAUTIONS: Fall, activity as tolerated, confusion, Bipolar disorder SUBJECTIVE: Stacy is agreeable to getting out of bed and to her chair for breakfast this morning. OBJECTIVE: PAIN: No c/o pain BED MOBILITY/TRANSFERS Supine-sit: CGA Sit-stand: CGA x2 Stand-sit: CGA x2 GAIT Assistive Device: FORENSIC PSYCHIATRIST x2 Weight bearing: Full Assist: CGA x2 Distance: 200' Deviation: Slow pacing, short step height and length, task re-orientation ASSESSMENT: Patient tolerated session well, although indicates that she wants to sit and eat her breakfast. She continues to require cueing for task re- orientation and FORENSIC PSYCHIATRIST x2 + CGA x2 for safety at this time. PLAN: Patient to discharge from inpatient admission, per provider. Recommend follow up with PT upon discharge to home. TREATMENT CODE/TIME: 15 minutes; [id number] (08:40)
--- NOTE | 2021-12-01 13:18 | CMPROGNOTE_ITS ---
- If Service Date Differs Date of service: 12/01/21 Time of Service: 13:18 Care Management Progress Note S/O: Yesterday Lluvia's daughter met with the RECRUITER SPECIALIST and CM and was informed that the plan would be to discharge Stacy today. Referrals had been sent to various SNFs and, if by mid day no bed offers were received , she would be discharged home with services or be admitted into [facility] as she does not require hospitalization. CM contacted all of the SNFs that referrals were sent to and all of them have declined to offer her a bed. CM informed Lluvia of this. CM spoke with Lluvia this morning and was informed that she was appealing the discharge as outlined in Medicare guidelines. CM received notification from [employer] that the appeal had been filed and all requested paperwork was faxed and received. A: Stacy is an 81 year old female admitted to [facility] on 11/19/21 with severe anemia, ITZEL, L pneumonia w/hypoxemia. P: Plan is undetermined at this time as it is dependent on the outcome of the [facility] review. Stacy continues to be monitored and treated. CM will continue to follow.
[2021-12-01] MEDS: Bacitracin 1 PACKET TP (14:32)
[2021-12-01] MEDS: Heparin 500 UNITS/5 ML SYRINGE IVP (14:33)
[2021-12-01] MEDS: Normal Saline Flush 10 ML SYR IVP (14:33)
[2021-12-01 15:00] VITALS: BP 133/80; PULSE 84; RESP 17; TEMP 36.8; O2SAT 94
--- NOTE | 2021-12-01 15:38 | NUR.NOTE ---
Nursing Note: At this time, this RN noted the occlusive dressing on the left arm from the midline had blood saturated to the gauze. This RN took down the dressing and redressed using gauze. The blood noted on the old gauze appeared to be clot like. Charge nurse made aware of the situation. Will continue to assess as needed.
[2021-12-01] MEDS: Acetaminophen 325 MG TAB 650 MG PO (16:02)
--- NOTE | 2021-12-01 18:15 | PT.INDS ---
Date of service: 12/01/21 PT Notes Visit Reasons: Severe Anemia,ITZEL,Left Pneumonia with Hypoxemia Physical Therapy Inpatient Discharge Summary Date: 12/01/2021 Dates of Service: 11/29/2021 critical [facility] hospital 12/01/2021 This is a clinical summary of care provided for the duration of dates listed above. No charge was made in the completion of this documentation. Referring Doctor: Krishan Dasilva MD PT Orders: PT CONSULT: Extend his stay?weakness Precautions: Fall Patient Profile/Admitting Diagnosis: 81-year-old female?who was admitted on 11/19/2021 and with bipolar disorder with altered mental status and fall. PMHX:? All Active Problems?(Updated 11/19/21 @ 06:37 by Heladio Gold) Hypoxemia (Acute) ITZEL (acute kidney injury) (Acute) Anemia (Acute) Fall (Acute) Altered mental status (Acute) Pneumonia (Acute) Asymmetrical sensorineural hearing loss (Acute) Anxiety (Chronic) Sensorineural hearing loss, bilateral (Acute) Knee pain, right (Acute) Hip pain, right (Acute) Anemia (Chronic) Acute kidney injury superimposed on chronic kidney disease (Acute) Encephalopathy acute (Acute) Multiple fractures of ribs (Acute 12/09/13) Hearing loss (Chronic) Chronic kidney disease, stage III (moderate) (Chronic 09/26/11) 08/25/2016 [facility] nephro consult: JOSE-I or ARB not recommended for this pt DJD (degenerative joint disease), lumbar (Acute 12/26/13) x-ray 12/2013 DVT (deep venous thrombosis) (Acute 12/08/13) 09/2013 L at OSH, (confirmed 11/2013 [facility] pt off therapy) RX Xarelto Depressive disorder (Acute 11/11/12) Dr. Esther Heath, Psychiatrist Multiple hospitalizations Psych dx's: unipolar vs. 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 With Catatonia. S/P multiple psychiatric admissions.? On [place], Lorazepam, Nortriptyline and Quetiapine as an out-patient, unclear doses.Hypertension (Chronic) Hyperlipidemia (Chronic) Hypothyroidism (Chronic) Constipation (Chronic) Medical History? Bipolar 2 disorder (01/30/17) Per Dr. 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 Surgical History? S/P ORIF (open reduction internal fixation) fracture Social History/Home Situation: Patient notes that she lives in a private home with her and is visited frequently by her daughter for healthcare etc.? She does not elaborate regarding the home set up with questioning.? She states that she was walking without assistive device around the home. Current Functional Limitations: Requires assistance with all ADLs Equipment Owned/DME: None mentioned Subjective: NT. See most recent [employer] MACHINE OPERATOR notes. Objective:? General Observation: NT. See most recent [employer]ARN TEXT[employer] MACHINE OPERATOR notes. Mental Status: NT. See most recent YARN TEXTURING MACHINE OPERATOR notes. Pain: NT. See most recent YARN TEXTUR[employer] MACHINE OPERATOR notes. Vital Signs: NT. See most recent YARN TEXTUR[employer] MACHINE OPERATOR notes. ROM: Not able to reassess Strength: Not able to reassess Neuro: Reflexes were not tested.? Patient not following simple commands such as rapid repetitive arm movements, fingertips to nose, etc. Bed Mobility/Transfers:? Rolling contact-guard assist Supine to sit contact-guard assist Sit to supine c contact-guard assist Sit to stand contact-guard assist Stand to sit contact-guard assist Bed to chair contact-guard assist Gait:?Patient is able to tolerate up to 20 feet of level surface ambulation requiring contact-guard assist of 2 for safety. Balance:? Static Sitting: Fair Dynamic Sitting: Fair Static Standing: Fair Dynamic Standing: Fair Assessment:?? Patient will benefit from home health PT services in order to progress mobility level using least restrictive assistive ambulatory device, assess home safety, identify additional equipment needs, and establish a functional maintenance program that will increase ability of patient to remain at home. Goals: Goals X1 week 1. Supine-Sit minimal assist MET 2. Sit-Supine minimal assist MET 3. Sit-Stand moderate assist MET 4. Stand-Sit minimal assist MET 5. Bed-Chair moderate assist MET 6. Chair-Bed moderate assist MET 7. Gait ambulation with an FW W for 5 to 10 feet with contact guarding MET DISCHARGE RECOMMENDATIONS: SNF TREATMENT CODE/TIME: NC Thank you for the opportunity to participate in the care of this patient. Sneha Paiz PT, DPT, CLT [facility] [place], [place]
[2021-12-01 19:45] VITALS: BP 160/61; PULSE 74; RESP 18; TEMP 36.4; O2SAT 96
[2021-12-01] MEDS: QUEtiapine 100 MG TAB 150 MG PO (20:23)
[2021-12-01] MEDS: Melatonin 3 MG TAB PO (21:24)
[2021-12-01 23:50] VITALS: BP 114/74; PULSE 70; RESP 17; TEMP 36.4; O2SAT 91
[2021-12-02] MEDS: Levothyroxine 50 MCG TAB PO (05:50)
[2021-12-02 08:22] VITALS: BP 132/84; PULSE 81; RESP 17; TEMP 36.6; O2SAT 95
[2021-12-02] MEDS: Carvedilol 6.25 MG TAB 12.5 MG PO ×2 (08:44→19:21)
[2021-12-02] MEDS: Multivitamin TAB 1 TAB PO (08:44)
[2021-12-02] MEDS: Magnesium Oxide 400 MG TAB PO (08:44)
[2021-12-02] MEDS: LORazepam 0.5 MG TAB PO ×2 (08:44→19:21)
[2021-12-02] MEDS: Cholecalciferol (Vitamin D3) 1,000 UNIT TAB 2000 UNITS PO (08:44)
[2021-12-02] MEDS: Pantoprazole 40 MG TABCR PO ×2 (08:44→19:20)
[2021-12-02] MEDS: QUEtiapine 50 MG TAB 100 MG PO (08:44)
[2021-12-02] MEDS: Ferrous Sulfate 325 MG TAB PO ×2 (08:44→19:20)
[2021-12-02] MEDS: Folic Acid 1 MG TAB PO (08:44)
--- NOTE | 2021-12-02 12:23 | CMPROGNOTE_ITS ---
- If Service Date Differs Date of service: 12/02/21 Time of Service: 12:23 Care Management Progress Note S/O: Stacy was sitting up in a chair in her room when CM met with her. Her and daughter were both in the room visiting. Stacy reported that she is not doing well today, as she just wants to go home. Yesterday Stacy was discharged, and her daughter disagreed with the discharge and [facility] CM faxed all clinical information to [facility], and is awaiting determination. Lluvia had questions about Stacy's medications today, and CM informed her RN and the provider, who addressed her concerns. CM will continue to follow. A: Stacy is an 81 year old female admitted to [facility] on 11/19/21 with severe anemia, ITZEL, L pneumonia w/hypoxemia. P: Plan is undetermined at this time as it is dependent on the outcome of the [facility] review. Stacy continues to be monitored and treated. CM will continue to follow.
[2021-12-02 14:38] VITALS: BP 121/78; PULSE 77; RESP 16; TEMP 36.4; O2SAT 94
[2021-12-02] MEDS: Acetaminophen 325 MG TAB 650 MG PO (18:36)
--- NOTE | 2021-12-02 18:36 | PGE_ITS ---
Date of Service Date of service: 12/02/21 Time of Service: 11:00 Assessment and Plan Assessment and plan (1) Bipolar 2 disorder: Assessment and plan: no behavioral issues. tolerating increase her dose of Seroquel which is reviewed with DR Cardenas (her outpatient psychiatric provider, he agrees with current regimen), discussed tapering lorazepam so dose dropped to 0.5 mg bid from 1 mg bid, continue prn dosing as needed. He agrees with not restarting lithium at this time, citing her kidney function and history of lithium toxicity with relatively low levels and that she is clinically stable. 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 resolved at this time (3) Diarrhea: Status: Resolved Assessment and plan: continue barrier cream Recheck on C.Diff was negative. Placed on lactose free diet; may have primary or secondary intolerance. Continue use of Lomotil. (4) Anemia: Status: Acute Assessment and plan: S/p 3 units pRBCs with stable H&H No active bleeding noted. Stool heme negative. Has iron deficiency. B12/folate are actually high. Not currently on iron supplementation but did receive venofer 300 mg x 2 doses will give oral supplementation May require outpatient GI workup. Currently on Protonix 40 mg twice a day. CT Abd/pelvis w/o acute findings. No retroperitoneal bleed. (5) Acute kidney injury superimposed on chronic kidney disease: Status: Resolved Assessment and plan: ?Dehydration vs lithium toxicity. Creatinine 1.1 - 1.2; at baseline. Sodium normalized. Now off IV fluids. No evidence of obstructive uropathy on CT. Payan catheter had to be reinserted for urinary retentioN (>950 ccs came out). avoid nephrotoxic drugs and renal dose as needed. (6) Rapid atrial fibrillation: Status: Acute Assessment and plan: ? on lopressor and coreg. will discontinue lopressor, increase coreg dose HR controlled. BP controlled. Serial troponins were neg. Echo: Est. EF of 59%. Normal left ventricular wall thickness and chamber size, mild to mod tricuspid regurgitation.. (7) Pneumonia: Status: Acute Assessment and plan: Present on admission. As above LIkely d/t aspiration. Hypoxia resolved. Now on RA. Finished course of antibiotic (ceftriaxone followed by Unasyn, see comments under sepsis) (8) Acute respiratory failure with hypoxia: Status: Resolved Assessment and plan: Due to PNA, present on admission. Now resolved. Not requiring oxygen therefore I have discontinued her orders for supplemental oxygen (9) Fall: Status: Acute Assessment and plan: PT/OT consulted, working with them and improving (10) DVT prophylaxis: Status: Acute Assessment and plan: TEDs. No chemica DVT ppx given unclear etiology of her anemia. (11) Discharge planning issues: Status: Acute Assessment and plan: She is safe for discharge and daughter is requesting rehabilitation. case management following and referrals have been placed. Not accepted at any facility. Daughter now refusing to take her home, even with home health services, and is appealing the discharge. discussed with Dr Ferguson. Subjective Subjective Patient reports: no new complaints Interval history since last seen: Daughter visits and asks that we change the dose of seroquel, per Dr Cardenas. I explained to her that we have consulted and spoken with Dr Cardenas. I advised her the medication will stay the same here until discharge and it can be looked at by Dr Cardenas as an out patient. Exam Const General: cooperative, no acute distress and well developed Nutritional Appearance: average body habitus Orientation: alert, awake, oriented to person and confused [facility] Head: normal to inspection, normocephalic and atraumatic Mouth: oral mucosae normal Chest Chest: normal inspection of the chest Resp Effort & Inspection: normal respiratory effort Auscultation: clear to auscultation bilaterally Cardio Rate: regular rate Rhythm: regular rhythm GI Inspection: normal to inspection Palpation: soft Skin Lesions: other (breakdown to cocyx improving per staff report.) Rashes: no rashes Extrem General: normal to inspection, full ROM and no pedal edema Psych Appearance: grossly normal Mental Status: other (cognitive impairment) Speech and Movement: other Mood: other (cognitive impairment) Affect: normal affect Attitude: cooperative Insight: poor Judgment: poor Objective Last Vital Signs Temp 36.4 C L 12/02/21 14:38 Pulse 77 12/02/21 14:38 Resp 16 12/02/21 14:38 BP 121/78 12/02/21 14:38 Pulse Ox 94 12/02/21 14:38
[2021-12-02 19:17] VITALS: BP 124/74; PULSE 79; RESP 16; TEMP 37; O2SAT 94
[2021-12-02] MEDS: QUEtiapine 100 MG TAB 150 MG PO (19:20)
[2021-12-02] MEDS: Docusate Sodium 100 MG CAP PO (19:21)
[2021-12-02] MEDS: Melatonin 3 MG TAB PO (21:51)
[2021-12-03 03:33] VITALS: BP 119/47; PULSE 68; RESP 16; TEMP 36.4; O2SAT 95
[2021-12-03] MEDS: Levothyroxine 50 MCG TAB PO (05:24)
[2021-12-03 07:20] VITALS: BP 105/65; PULSE 64; RESP 14; TEMP 36.6; O2SAT 94
[2021-12-03] MEDS: Multivitamin TAB 1 TAB PO (08:36)
[2021-12-03] MEDS: Pantoprazole 40 MG TABCR PO ×2 (08:36→20:36)
[2021-12-03] MEDS: Docusate Sodium 100 MG CAP PO ×2 (08:36→20:36)
[2021-12-03] MEDS: Folic Acid 1 MG TAB PO (08:36)
[2021-12-03] MEDS: Magnesium Oxide 400 MG TAB PO (08:36)
[2021-12-03] MEDS: LORazepam 0.5 MG TAB PO ×2 (08:36→20:37)
[2021-12-03] MEDS: QUEtiapine 50 MG TAB 100 MG PO (08:36)
[2021-12-03] MEDS: Carvedilol 6.25 MG TAB 12.5 MG PO ×2 (08:36→20:35)
[2021-12-03] MEDS: Cholecalciferol (Vitamin D3) 1,000 UNIT TAB 2000 UNITS PO (08:36)
[2021-12-03] MEDS: Ferrous Sulfate 325 MG TAB PO ×2 (08:37→20:36)
--- NOTE | 2021-12-03 11:50 | W.PM.PROGNOT ---
Date of Service Date of service: 12/03/21 Time of Service: 11:50 Assessment and Plan Assessment and plan (1) Bipolar 2 disorder: Status: Chronic Assessment and plan: no behavioral issues. tolerating increase her dose of Seroquel which is reviewed with DR Cardenas (her outpatient psychiatric provider, he agrees with current regimen), discussed tapering lorazepam so dose dropped to 0.5 mg bid from 1 mg bid, continue prn dosing as needed. He agrees with not restarting lithium at this time, citing her kidney function and history of lithium toxicity with relatively low levels and that she is clinically stable. Last ECT therapy was in July 2021 (2) Anemia: Status: Chronic Assessment and plan: S/p 3 units pRBCs with stable H&H No active bleeding noted. Stool heme negative. Has iron deficiency. B12/folate are actually high. Not currently on iron supplementation but did receive venofer 300 mg x 2 doses will give oral supplementation May require outpatient GI workup. Currently on Protonix 40 mg twice a day. CT Abd/pelvis w/o acute findings. No retroperitoneal bleed. (3) Fall: Status: Acute Assessment and plan: PT/OT following, working with them and improving. recommendations for home health services (4) DVT prophylaxis: Status: Acute Assessment and plan: TEDs. No chemica DVT ppx given unclear etiology of her anemia. (5) Discharge planning issues: Status: Acute Assessment and plan: She is medically stable and has been discharged. Daughter was requesting rehabilitation. case management was following and referrals had been placed but she was not accepted at any facility as it appears she has met full inpatient rehab potential and is safe for discharge to home. Daughter refusing to take her home, even with home health services, and has appealed the discharge. She will continue remain here for correction care while awaiting decision of appeal. Lluvia has requested psychiatric medication changes yesterday that are not recommended or appropriate as patient is stable (her current regimen was discussed with her psychiatrist who is in agreement with plan and patients behaviors and mental status is stable and likely better than her most recent baseline). The DPOA (Lluvia) behaviors and requests are concerning that she is not acting in the best interest of the patient. discussed with Dr Mark. Subjective Subjective Patient reports: no new complaints Interval history since last seen: patient remains medically stable, no behavioral issues. Exam Const General: cooperative, no acute distress and well developed Nutritional Appearance: average body habitus Orientation: alert, awake, oriented to person and confused [facility] Head: normal to inspection, normocephalic and atraumatic Mouth: oral mucosae normal Chest Chest: normal inspection of the chest Resp Effort & Inspection: normal respiratory effort Auscultation: clear to auscultation bilaterally Cardio Rate: regular rate Rhythm: regular rhythm GI Inspection: normal to inspection Palpation: soft Skin Lesions: other (breakdown to cocyx improving per staff report.) Rashes: no rashes Extrem General: normal to inspection, full ROM and no pedal edema Psych Appearance: grossly normal Mental Status: other (cognitive impairment) Speech and Movement: other Mood: other (cognitive impairment) Affect: normal affect Attitude: cooperative Insight: poor Judgment: poor Objective Last Vital Signs Temp 36.6 C 12/03/21 07:20 Pulse 64 12/03/21 07:20 Resp 14 12/03/21 07:20 BP 105/65 12/03/21 07:20 Pulse Ox 94 12/03/21 07:20
[2021-12-03 15:33] VITALS: BP 134/77; PULSE 84; RESP 16; TEMP 37.3; O2SAT 98
[2021-12-03] MEDS: Acetaminophen 325 MG TAB 650 MG PO (18:09)
[2021-12-03 19:35] VITALS: BP 125/74; PULSE 89; RESP 20; TEMP 36.9; O2SAT 94
[2021-12-03] MEDS: QUEtiapine 100 MG TAB 150 MG PO (20:36)
[2021-12-04 03:14] VITALS: BP 108/63; PULSE 75; RESP 16; TEMP 36.6; O2SAT 94
[2021-12-04] MEDS: Levothyroxine 50 MCG TAB PO (05:53)
[2021-12-04 07:18] VITALS: BP 120/76; PULSE 71; RESP 14; TEMP 36.3; O2SAT 94
[2021-12-04] MEDS: Folic Acid 1 MG TAB PO (08:45)
[2021-12-04] MEDS: Multivitamin TAB 1 TAB PO (08:45)
[2021-12-04] MEDS: Cholecalciferol (Vitamin D3) 1,000 UNIT TAB 2000 UNITS PO (08:45)
[2021-12-04] MEDS: Ferrous Sulfate 325 MG TAB PO (08:45)
[2021-12-04] MEDS: Magnesium Oxide 400 MG TAB PO (08:45)
[2021-12-04] MEDS: QUEtiapine 50 MG TAB 100 MG PO (08:45)
[2021-12-04] MEDS: Carvedilol 6.25 MG TAB 12.5 MG PO (08:45)
[2021-12-04] MEDS: Pantoprazole 40 MG TABCR PO (08:46)
[2021-12-04] MEDS: LORazepam 0.5 MG TAB PO (08:46)
[2021-12-04] MEDS: Acetaminophen 325 MG TAB 650 MG PO (08:58)
--- NOTE | 2021-12-04 09:58 | PDOC.HHF2F_ITS ---
Home Health Certification Home Health Certification: 1. Encounter Date and Reason I certify that Stacy Orosco was seen by Paulette Dorado NP on 12/04/21 and that I had a [id number] encounter with this patient that meets the physician face to face encounter requirements. 2. Clinical Findings Supporting Skilled Need and Homebound Status I certify that home health services are medically necessary, include either intermittent residential and/or physical/speech therapy, and that this patient is homebound in that absences from the home require considerable and taxing effort and are infrequent or of short duration, or are attributable to the need to receive medical care. [X] (a) Attached documentation from encounter provides clinical findings supporting skilled need and homebound status (including what assistance patient requires to leave the home). The encounter with the patient was in whole, or in part, for the following medical condition, which is the primary reason for home health care:?Bipolar disorder; Anemia, Fall Senior Living: Assess safety and caregiver's ability and willingness to care for Stacy; provide education to the patient and her caregiver regarding medication, medication changes, medication tapers; fall prevention; bowel regimen. CBC no diff & BNP 12/08/2021 (D64.9) (N17.8) results to Patricia Goss APRN Physical Therapy: Assist patient to regain movement, strength and ability to ambulate safely. Occupational Therapy: Assess and provide education to restore functionality. Homebound: Due to illness Stacy requires the aid of a walker and the assistance of another person in order to leave her place of residence safely. 3. Certification and Authentication I certify that I composed the above information based on my clinical judgement relating to this patient's medical condition and, if applicable, clinical findings communicated to me by the NPP or inpatient physician who performed the Home Health Referral. All further orders will be obtained through Patricia Goss APRN, Community-based Physician - PCP
--- NOTE | 2021-12-04 10:05 | DSE_ITS ---
Date of service: 12/01/21 Time of Service: 11:04 DS: Diagnosis Discharge Diagnosis (1) Bipolar 2 disorder: (2) Toxic metabolic encephalopathy: Status: Resolved (3) Diarrhea: Status: Resolved (4) Anemia: Status: Acute (5) Acute kidney injury superimposed on chronic kidney disease: Status: Resolved (6) Rapid atrial fibrillation: Status: Acute (7) Pneumonia: Status: Acute (8) Acute respiratory failure with hypoxia: Status: Resolved (9) Fall: Status: Acute Discharge Plan Disposition Patient Disposition: HOME Condition: Stable Discharge Details Reason For Visit: Severe Anemia,ITZEL,Left Pneumonia with Hypoxemia Admit Date/Time: 11/19/21 06:40 Admit Provider: Heladio Gold Attending Provider: Heladio Gold Primary Care Provider: Patricia Goss Hospital Course Hospital Course: This is an 81-year-old female patient with a past medical history significant for bipolar disorder previously on lithium and Seroquel who presented to the emergency department after being found to be more lethargic which was consistent with history of lithium toxicity she had no fever cough or obvious source of infection. At home patient has been more agitated and abnormal thinking that she was having catatonia which she has had problems with in the past.??On the day of admission during the night prior the patient got up to go to the bathroom and her significant other her a noise and she fell.? She was brought to the ED for evaluation and found to be severely anemic which appear to be chronic with an MCV being low and heme-negative stool.? Patient was also hypotensive and hypoxic and was found to have a pneumonia with significant infiltrate on imaging.? She was placed on BiPAP for hypoxemia but was not retaining CO2.? Patient appeared to have fallen on her right side with some discomfort to palpation over her chest and abdomen but no significant injury noted.? She had no obvious focal neurological findings and imaging mostly revealed the pneumonia.? The patient has been a DNR/DNI in the past but the daughter wanted her to be a full code.? This is an ongoing discussion.? Patient did receive fluid and her first unit of packed red blood cells in the ED with improvement of her blood pressure and hypoxemia was improved with BiPAP with O2.? She will be switched to high flow O2 in the ICU where she will be admitted for continued treatment.? She does have ITZEL with pneumonia over the left lung field.? CT of the head did not reveal any acute process.? CT of the chest and abdomen did reveal cholelithiasis, a large hilar hernia consolidation in the right lung as mentioned and a mild L1 compression fracture with appear to be old.? Patient was not able to offer any history due to her altered mental status She responded to treatment and completed a course of antibiotics which have been changed to Unasyn and azithromycin due to possible aspiration because of her hiatal hernia she did also have an episode of rapid atrial fibrillation which did require Cardizem bolus and drip serial troponins remained negative continued to have altered mental status which initially was thought due to toxic metabolic encephalopathy but differentials also included catatonia which she has been treated in the past for with ECT her last treatment in July 2021. We did consult Dr. Johnson from psychiatry who did agree with continuing the scheduled Ativan which did seem to improve her symptoms. Her anemia was worked up heme stools were negative. Found to have iron deficiency with normal/high B12 folate levels. She received a total of 3 units of packed red blood cells and IV venofer for and has had a stable hemoglobin and hematocrit. Her Protonix was also increased to twice daily dosing any further GI work-up can be deferred to outpatient provider, she will be decreased to protonix daily at discharge. Hospital course was also complicated by urinary retention and she required Payan catheter imaging showed no evidence of obstructive uropathy no urinary tract infection identified. Her Payan has been discontinued and she is voiding. Palliative care was following. It was noted that she was a full code despite DNR/DNI on advanced directives per her previous wishes. An ethics committee meeting was held and the decision to honor her wishes of DNR/ DNI have been upheld, this meeting included Mey Milligan, [employer] of the [place] Ethics Committee.? The advanced directive created by patient previously cannot be changed by her daughter who is her guardian.? Her code status will stand; DNR/DNI. Per advanced directive from 2012 patient selects if terminal condition w/imminent preference for [employer] and natural , if in persistent vegetative state preference for [employer] and natural , if at end-stage condition that is incurable that has already resulted in loss of capacity and complete dependency preference for [employer] and natural , pain relief no matter condition, preference for hospice care as appropriate. Stacy is now medically stable, eating and drinking well and thought to be at her baseline. Her psychiatric medications were discussed with her outpatient provider Dr. Cardenas who is in agreement with not restarting the lithium at this point as she is stable on the current dose of Seroquel. She is at risk for lithium toxicity due to her chronic renal insufficiency and has been noted to have symptoms of lithium toxicity despite having normal levels. He would like to wean benzos so her lorazepam was decreased to 0.5 mg twice daily which she is tolerating well He will follow her outpatient for further medication adjustments Her discharge plan was discussed on a ongoing basis between case management and her daughter Lluvia who is her DPOA and Lluvia did states that she wanted her mother to return home but when it came time for discharge she was reluctant to bring her home requesting a skilled rehab referral be placed. She has been working with physical therapy here and they feel she has met her full inpatient rehab potential and is safe for discharged home with home health services. The daughter would still like referrals to be placed which case management has done. She has not been accepted by any rehab facilities as anticipated and we informed her daughter who has filed an appeal against the hospital discharge. She has been medically stable and is being discharged to home with home health services. Discharge has been appealed so patient will remain here for fpc care until appeal resolved. discharge discussed with Dr Ferguson. Home Meds and New Rx's Prescriptions: New ferrous sulfate 325 mg (65 mg iron) Tablet 325 mg PO BID Qty: 60 0RF docusate sodium [Colace] 100 mg Capsule 100 mg PO BID Qty: 60 0RF quetiapine 50 mg Tablet 100 mg PO DAILY Qty: 60 0RF Continued ondansetron 4 mg tablet,disintegrating 4 mg PO Q8H PRN multivitamin 1 EACH tablet 1 ea PO DAILY cholecalciferol (vitamin D3) [Vitamin D3] 2,000 UNIT tablet 2,000 unit PO DAILY aspirin [Aspirin Low-Strength] 81 MG tablet,chewable 81 mg PO DAILY Desenex 2 % powder 1 applic TP DAILY Rx Instructions: to erythematous areas of groin per discharge [facility] 11/25/19 [facility] acetaminophen [Tylenol Extra Strength] 500 mg tablet 1,000 mg PO TID PRN (Reason: pain) Qty: 270 3RF carvedilol 12.5 mg tablet 12.5 mg PO BID Qty: 60 11RF folic acid 1 mg tablet 1 mg PO DAILY Qty: 30 11RF levothyroxine 50 mcg tablet 50 mcg PO DAILY Qty: 30 11RF Rx Instructions: DX:THYROID REPLACEMENT pantoprazole 40 mg tablet,delayed release (DR/EC) 40 mg PO DAILY Qty: 30 11RF Rx Instructions: Take 40mg in the AM on an empty stomach, at least 20-30 minutes before first meal. polyethylene glycol 3350 17 gram Powder In Packet 17 g PO DAILY PRN PRN (Reason: Constipation) Qty: 0 0RF melatonin 5 mg capsule 5 mg PO HS Label Comments: Take 1 capsule by mouth at bedtime hydroxyzine HCl 25 mg Tablet 25 mg PO PRN PRN Rx Instructions: Daughter thinks she gets this prior to her ECT treatments. quetiapine 100 mg tablet 150 mg PO QPM Changed lorazepam 1 mg tablet 0.5 mg PO BID PRN PRNQty: 0 0RF Label Comments: TAKE ONE TABLET BY MOUTH TWICE A DAY NEEDED Rx Instructions: 1 mg in AM and at 1400 Discontinued amlodipine 10 mg tablet 10 mg PO DAILY Qty: 90 3RF lithium carbonate 300 mg tablet extended release 300 tab PO HS nortriptyline 10 mg capsule 10 mg PO HS Discharge Instructions Instructions: Chronic Kidney Disease (DC), Chronic Urinary Retention in Women (DC), Anemia (DC) Additional Instructions: We discussed whether or not to restart your lithium with DR Cardenas who does not recommend restarting at this time as behaviors are stable on increased seroquel, and kidney function puts you at increased risk for lithium toxicity. Stand Alone Forms: Nursing Discharge Form Referrals: Patricia Goss NP [Primary Care Provider] - 12/19/21 2:30 pm Heladio Cardenas [ [facility] STAFF PHYSICIAN] - Activity:: Activity as Tolerated Equipment/Supplies:: No Equipment Needed Diet:: As Tolerated Discharge Orders Discharge Orders: Discharge Order (Routine); Ordered 12/01/21 Ordered By: Alejandra Trujillo DS: Summary Time Spent with Patient providing and/or coordinating discharge services: Greater than 30 minutes Status at Discharge Functional status at discharge: uses cane/walker Overall status at discharge: patient is progressing back to baseline Mental Status: other (cognitive impairment) Speech and Movement: other Mood: other (cognitive impairment) Affect: normal affect Exam Const General: cooperative, no acute distress and well developed Nutritional Appearance: average body habitus Orientation: alert, awake, oriented to person and confused HENHI Head: normal to inspection, normocephalic and atraumatic Mouth: oral mucosae normal Chest Chest: normal inspection of the chest Resp Effort & Inspection: normal respiratory effort Auscultation: clear to auscultation bilaterally Cardio Rate: regular rate Rhythm: regular rhythm GI Inspection: normal to inspection Palpation: soft Skin Lesions: other (breakdown to cocyx improving per staff report.) Rashes: no rashes Extrem General: normal to inspection, full ROM and no pedal edema Psych Appearance: grossly normal Mental Status: other (cognitive impairment) Speech and Movement: other Mood: other (cognitive impairment) Affect: normal affect Attitude: cooperative Insight: poor Judgment: poor DS: Data Vitals/I&O Vitals and I&O: Vital Signs Temperature 37.2 C 12/01/21 09:01 Temperature Source Tympanic 12/01/21 09:01 Pulse 80 12/01/21 09:01 Pulse Rhythm Regular 12/01/21 03:20 Pulse 96 H 11/24/21 10:00 Respiratory Rate 17 12/01/21 09:01 Respiratory Effort Non-Labored 12/01/21 03:20 Respiratory Depth Normal 12/01/21 03:20 Respiratory Pattern Normal 12/01/21 03:20 Blood Pressure 133/76 12/01/21 09:01 Blood Pressure Mean 87 11/24/21 08:01 Blood Pressure Position Left Lateral 11/24/21 07:45 Pulse Oximetry 93 12/01/21 09:01 Oxygen Delivery Method Room Air 12/01/21 09:01 Oxygen Flow Rate 0 12/01/21 09:01 Fraction of Inspired Oxygen (FIO2) 40 11/19/21 11:32 Pain Level 0 12/01/21 09:01 Comment 11/27/21 12:10 Intake & Output 11/30/21 11/30/21 12/01/21 11:59 23:59 11:59 Intake Total 240 / 240 Output Total 500 / 1600 1100 / 1600 800 / 800 Balance -500 / -1360 -860 / -1360 -800 / -800 Weight 68 kg 68.3 kg Intake: Oral 240 / 240 Output: Urine 500 / 1600 1100 / 1600 800 / 800 Other: Urine Color Light Ronda Yellow Pale Yellow Urine Appearance Clear Clear Clear Stool Size Moderate Moderate Stool Characteristics Soft Soft Brown Brown PFSH All Active Problems (Updated 11/30/21 @ 17:22 by Alejandra Trujillo NP) Palliative care encounter (Acute) Rapid atrial fibrillation (Acute) Discharge planning issues (Acute) DVT prophylaxis (Acute) Hypoxemia (Acute) ITZEL (acute kidney injury) (Acute) Anemia (Acute) Fall (Acute) Altered mental status (Acute) Pneumonia (Acute) Asymmetrical sensorineural hearing loss (Acute) Anxiety (Chronic) Sensorineural hearing loss, bilateral (Acute) Knee pain, right (Acute) Hip pain, right (Acute) Anemia (Chronic) Acute kidney injury superimposed on chronic kidney disease (Acute) Encephalopathy acute (Acute) Multiple fractures of ribs (Acute 12/09/13) Hearing loss (Chronic) Chronic kidney disease, stage III (moderate) (Chronic 09/26/11) [place] [facility] [place]: JOSE-I or ARB not recommended for this pt DJD (degenerative joint disease), lumbar (Acute 12/26/13) x-ray 12/2013 DVT (deep venous thrombosis) (Acute 12/08/13) 09/2013 L at OSH, (confirmed 11/2013 [facility] pt off therapy) RX Xarelto Depressive disorder (Acute 11/11/12) Dr. Esther Heath, Psychiatrist Multiple hospitalizations Psych dx's: unipolar vs. 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 With Catatonia. S/P multiple psychiatric admissions. On [facility], Lorazepam, Nortriptyline and Quetiapine as an out-patient, unclear doses. Hypertension (Chronic) Hyperlipidemia (Chronic) Hypothyroidism (Chronic) Constipation (Chronic) Medical History Bipolar 2 disorder (01/30/17) Per Dr. 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 Surgical History S/P ORIF (open reduction internal fixation) fracture Family History Brother Heart disease Stroke Brother Heart disease Dementia Father Throat cancer Mother Dementia Other Hypertension Social History Smoking/Tobacco Use Status: Never Smoking risk assessment performed?: Yes Alcohol Intake: former Drug use: Never Substance use type: does not use Number of Children: 2 Pets and animals: Yes Pets and animals: cat(s) Current gender identity: female What type of physical activity do you participate in: walking Frequency: daily Seatbelt use: always Do you feel safe at home: Yes Do you feel safe in your relationship?: Yes
[2021-12-04] MEDS: Bisacodyl 5 MG TABEC PO (10:26)
[2021-12-04] MEDS: Docusate Sodium 100 MG CAP PO (10:32)
--- NOTE | 2021-12-04 12:20 | CMDISCH_ITS ---
- If Service Date Differs Date of service: 12/04/21 Time of Service: 12:20 LACE Index Scoring Tool - Questions: Length of Stay (in days): 14 or more Acuity (Admit via E.D.?): Yes Comorbidities: Liver or Renal Disease E.D. Visits: 5 - Answers: Total Score: 19 Risk of Readmission: High Risk Care Management Discharge Reason for Hospitalization: Severe anemia, ITZEL, left pneumonia with hypoxemia. Discharge Plan: Stacy returned home today with new orders for HH RN, PT, OT, HAT CLEANER. Her daughter, Lluvia drove her home via private vehicle. Stacy had been discharged on 12/01/21, but Lluvia (Guardian) did not feel that she was ready for discharge, and appealed the discharge through [employer]. The determination was made on 12/03/21 that the appeal was denied. Lluvia picked up her mother at approximately 10:30am, prior to the 12pm deadline on 12/04/21, which was communicated by [employer]. CM faxed updated information to [facility] to begin services on 12/05/21. She will follow up with [facility] (Dr. Cardenas), her PCP (Patricia Goss APRN), and her discharge plan of care. Patient/Family Education Needs: Review discharge instructions regarding activity levels and medications, discussion of self care needs including ask me three and goals of care. Lluvia inquired about SNF referrals prior to discharge, and CM reviewed with Lluvia that the referrals were sent for short term rehab prior to her original discharge, and she was not offered a bed. Lluvia can follow up with the facilities out patient to appeal these decisions made by outside facilities. Her PCP can send additional information, if needed. BAILEY stated that if facilities have questions regarding this hospitalization, CM will be available during business hours to discuss her needs and answer questions related to this inpatient stay. Lluvia requested that HH begin today, and CM exp lained that HH services will be initiated the day after discharge, per [facility] protocol. Services Needed at Discharge: Home Health Care Services (new HH RN, PT, OT, HAT CLEANER)
== END 2021-12-04 11:10 | disposition home or self-care (01) | DRG 871 ==
LOC: ER 07:19 → ICU 12:07 → MS 11-24 10:33
PROVIDERS: Family Medicine; Internal Medicine; Admitting Provider Family Medicine; Emergency Provider Emergency Medicine; PCP Nurse Practitioner Family; Visit Provider Family Medicine
DX: A41.9 Sepsis, unspecified organism (principal); G92.8 Other toxic encephalopathy; J96.01 Acute respiratory failure with hypoxia; J69.0 Pneumonitis due to inhalation of food and vomit; N17.9 Acute kidney failure, unspecified; F31.81 Bipolar II disorder; E87.0 Hyperosmolality and hypernatremia; Z78.1 Physical restraint status; W19.XXXA Unspecified fall, initial encounter; Z79.82 Long term (current) use of aspirin; I12.9 Hypertensive chronic kidney disease with stage 1 through stage 4 chronic kidney disease, or unspecified chronic kidney disease; E78.5 Hyperlipidemia, unspecified; F41.9 Anxiety disorder, unspecified; M25.551 Pain in right hip; M25.561 Pain in right knee; N18.30 Chronic kidney disease, stage 3 unspecified; M47.816 Spondylosis without myelopathy or radiculopathy, lumbar region; Z86.718 Personal history of other venous thrombosis and embolism; M41.86 Other forms of scoliosis, lumbar region; N39.41 Urge incontinence; E03.9 Hypothyroidism, unspecified; K59.00 Constipation, unspecified; G24.01 Drug induced subacute dyskinesia; K80.20 Calculus of gallbladder without cholecystitis without obstruction; K44.9 Diaphragmatic hernia without obstruction or gangrene; S32.010D Wedge compression fracture of first lumbar vertebra, subsequent encounter for fracture with routine healing; X58.XXXD Exposure to other specified factors, subsequent encounter; D50.9 Iron deficiency anemia, unspecified; E86.0 Dehydration; I48.91 Unspecified atrial fibrillation; Z66 Do not resuscitate; R19.7 Diarrhea, unspecified; L22 Diaper dermatitis
CPT/HCPCS: 36410; 36415; 36591; 51702; 71250; 80048; 80053; 80307; 82550; 82805; 86850; 86900; 86901; 86920; 87040; 87449; 87493; 87635; 93005; 93306; 96361; 96365; 96367; 96375; 97163; 97530; 99291; 70450; 72125; 73560; 74176; 80178; 80320; 80329; 81003; 81015; 82607; 82728; 82746; 83540; 83550; 83615; 83735; 84443; 84484; 85014; 85018; 85025; 85045; 85049; 85610; 87899; 93010; 99223; 99232; 99233; 99239; J0131; J0295; J0456; J0696; J1756; J2060; J2997; J3360; J3410; J3480; J3490; J7060; J8597; P9016

== ENCOUNTER 2021-12-10 16:06 | Outpatient (REF) | payer MEDICARE, SELFPAY ==
[2021-12-10 16:31] LABS: Bilirubin Negative (Negative); Blood Negative (Negative); Clarity Clear (Clear); Glucose Negative (Negative); Ketones Negative (Negative); Leukocyte Esterase Negative (Negative); Nitrite Negative (Negative); Urobilinogen 0.2 EU/dL (Up TO 0.2)
[2021-12-10 16:40] LABS: Bacteria Negative HPF (Negative); C & S Indicated? C&S Done As Ordered; Crystals Rare Amorphous HPF (Negative); Epithelial Cells Rare HPF (Negative); Mucus Negative (Negative); RBC Negative HPF (0-2); WBC Negative HPF (0-5)
== END 2021-12-10 16:07 | disposition home or self-care (01) ==
LOC: LBN 16:06
PROVIDERS: PCP Nurse Practitioner Family; Visit Provider Physician Assistant Medical
DX: N39.0 Urinary tract infection, site not specified (principal)
CPT/HCPCS: 81003; 81015; 87086

== ENCOUNTER 2021-12-12 14:48 | Outpatient (REF) | payer MEDICARE, SELFPAY ==
[2021-12-12 18:19] LABS: Anion Gap 12.7 mmol/L (3-11); BUN 23 mg/dL (7-18); CO2 21.3 mmol/L (21.0-32.0); CREATININE 1.2 mg/dL (0.55-1.02); Calcium 8.8 mg/dL (8.5-10.1); Chloride 107 mmol/L (98-107); Estimated GFR 43.01 (mL/min/1.73m2); Glucose 130 mg/dL (74-106); Potassium 4.4 mmol/L (3.5-5.1); Sodium 141 mmol/L (136-145)
[2021-12-12 18:22] LABS: HCT 35.1 % (36.0-46.0); HGB 10.7 g/dL (11.2-15.7); MCH 25.1 pg (27.0-33.0); MCHC 30.5 % (32.0-36.0); MCV 82 fL (80-95); Platelet Count 400 10^3/uL (130-400); RBC 4.26 10^6/uL (3.93-5.22); WBC 5.16 10^3/uL (4.4-10.8)
== END 2021-12-12 14:49 | disposition home or self-care (01) ==
LOC: LBN 14:48
PROVIDERS: PCP Nurse Practitioner Family; Visit Provider Nurse Practitioner Family
DX: D64.9 Anemia, unspecified (principal)
CPT/HCPCS: 80048; 85027

== ENCOUNTER 2021-12-17 07:33 | Emergency (ER) | payer MEDICARE, SELFPAY ==
[2021-12-17] VITALS (50 sets, daily range): BP systolic 126–196; BP diastolic 58–161; PULSE 80–108; RESP 20; TEMP 36.5–36.7; O2SAT 92–99
--- NOTE | 2021-12-17 08:15 | RT.EKG_ITS ---
APPROVED REPORT Exam: Resting ECG Reason for Exam: [facility] Patient Location: E HR:87 bpm ECG Measurements Heart Rate 87 AXIS WI 169 P 29 QRSd 105 QRS 24 QT 407 T 2 QTc 489 Conclusion Sinus rhythm...normal P axis, V-rate 60- 99 sinus rhythm, normal axis, nonischemic
--- NOTE | 2021-12-17 08:15 | DI.RAD_ITS ---
Exam(s) XR CHEST 1V IN DI DEPT EXAM: XR CHEST 1V IN DI DEPT CLINICAL HISTORY: AMS TECHNIQUE: 2D digital imaging was performed of the chest. One image was obtained. An AP view was ob tained. COMPARISON: CR,XR XR PORTABLE CHEST AP from 06/13/2019 FINDINGS: There is poor inspiration. MEDIASTINUM: Normal. HEART: Normal. PULMONARY VASCULATURE: Normal. LUNGS: There opacity seen in the left lung base. Right lung is clear. PLEURAL SPACE: No pleural effusion or pneumothorax. BONE:Within normal limits for the patient's age. OTHER FINDINGS:There is indwelling central venous catheter. The tip of the catheter is in good posit ion in the superior vena cava. There is a hiatal hernia present. IMPRESSION: Opacity in the left lung base. Pneumonia cannot be excluded. Please correlate clinically. DATA REPOSITORY: RADIATION DOSE DELIVERED:
--- NOTE | 2021-12-17 08:15 | DI.CT_ITS ---
Exam(s) CT HEAD WO EXAM: CT HEAD WO CLINICAL HISTORY: AMS, delirium. TECHNIQUE: Imaging Protocol: Axial computed tomography images with coronal and sagittal reformatted images were created and reviewed COMPARISON: CT CT HEAD WO from 11/23/2021 FINDINGS: Ventricles and Extra axial spaces: Normal in size and morphology for the patient's age. Hemorrhage: None. Cerebral parenchyma: No acute territorial infarct is present. There are areas of decreased attenuati on in the white matter most consistent with small vessel ischemic disease. Midline shift: None. Brainstem/Cerebellum: Normal. Calvarium: Normal. Visualized Paranasal sinuses/Mastoids: Clear. Soft Tissues: Unremarkable. IMPRESSION: No acute intracranial process. RADIATION DOSE DELIVERED: 640.71mGy.cm Total DLP DATA REPOSITORY: All CT scans at this facility are submitted to the National Radiology Data Registry (NRDR) Dose Index Registry (DIR) with the [employer] (A[employer]). RADIATION OPTIMIZATION: All CT scans at this facility use at least one of these dose optimization te chniques: automated exposure control; mA and/or kV adjustment per patient size (includes targeted exa ms where dose is matched to clinical indication); or iterative reconstruction.
--- NOTE | 2021-12-17 08:49 | ED.GENADUL_ITS ---
Discharge Plan Disposition Patient Disposition: HOME Condition: Stable Discharge Details Clinical Impression: Agitation, Acute UTI Primary Care Provider: Patricia Goss ED Provider: Jose Alfredo Castro Home Meds and New Rx's Prescriptions: No Action ondansetron 4 mg tablet,disintegrating 4 mg PO Q8H PRN lithium carbonate 150 mg capsule 150 mg PO ONCE Qty: 30 1RF Rx Instructions: Start with 1/2 dissolved capsule in water x 4 days multivitamin 1 EACH tablet 1 ea PO DAILY cholecalciferol (vitamin D3) [Vitamin D3] 2,000 UNIT tablet 2,000 unit PO DAILY aspirin [Aspirin Low-Strength] 81 MG tablet,chewable 81 mg PO DAILY Desenex 2 % powder 1 applic TP DAILY Rx Instructions: to erythematous areas of groin per discharge [facility] 11/25/19 [facility] acetaminophen [Tylenol Extra Strength] 500 mg tablet 1,000 mg PO TID PRN (Reason: pain) Qty: 270 3RF carvedilol 12.5 mg tablet 12.5 mg PO BID Qty: 60 11RF folic acid 1 mg tablet 1 mg PO DAILY Qty: 30 11RF levothyroxine 50 mcg tablet 50 mcg PO DAILY Qty: 30 11RF Rx Instructions: DX:THYROID REPLACEMENT pantoprazole 40 mg tablet,delayed release (DR/EC) 40 mg PO DAILY Qty: 30 11RF Rx Instructions: Take 40mg in the AM on an empty stomach, at least 20-30 minutes before first meal. polyethylene glycol 3350 17 gram Powder In Packet 17 g PO DAILY PRN PRN (Reason: Constipation) Qty: 0 0RF melatonin 5 mg capsule 5 mg PO HS Label Comments: Take 1 capsule by mouth at bedtime hydroxyzine HCl 25 mg Tablet 25 mg PO PRN PRN Rx Instructions: Daughter thinks she gets this prior to her ECT treatments. quetiapine 100 mg tablet 150 mg PO QPM ferrous sulfate 325 mg (65 mg iron) Tablet 325 mg PO BID Qty: 60 0RF docusate sodium [Colace] 100 mg Capsule 100 mg PO BID Qty: 60 0RF quetiapine 50 mg Tablet 100 mg PO DAILY Qty: 60 0RF lorazepam 1 mg tablet 0.5 mg PO BID PRN PRNQty: 0 0RF Label Comments: TAKE ONE TABLET BY MOUTH TWICE A DAY NEEDED Rx Instructions: 1 mg in AM and at 1400 Discharge Instructions Instructions: Urinary Tract Infection in Women (ED) Additional Instructions: Please follow-up with primary care physician. Please continue take full course of antibiotics for urinary tract infection. Please return to the emergency department if you have any worsening symptoms. Medical Decision Making 81-year-old female recent admission for lithium toxicity metabolic encephalopathy pneumonia, presents with decreased functionality increased agitation and confusion over the past several days to weeks, daughter is having a difficult time caring for her at home due to patient's behavior. No recent falls no infectious symptomatology. Patient is confused, attempting to get up out of bed, easily redirectable however appears globally delirious, recent lowering of her lithium and benzodiazepine dosages, no external signs of trauma, full strength, cranial nerves intact, afebrile nontoxic, dry oral mucosa. Consider delirium in the setting of medication adjustment versus metabolic derangement versus dehydration versus UTI versus intracranial process such as bleed or edema, lower suspicion for meningeal encephalitis, must also consider benzodiazepine withdrawal however not tremulous or tachycardic or hypertensive. Soft blood pressure however patient is of a smaller body habitus and appears slightly dry. We will proceed with light fluid rehydration, trial of benzodiazepine as prior note indicates that her symptoms improved after benzo administration, and patient is allergic to multiple antipsychotics, will need admission for rehab/group home placement given poor functional status and increasing difficulty the family is having in caring for patient. HPI General Date/Time Provider Initiated Documentation: 12/17/21 07:50 . HPI Narrative: 81-year-old female history of bipolar disorder recent admission for lithium toxicity metabolic encephalopathy and pneumonia, presents brought by daughter for increased agitation abnormal behavior poor self-care. Was started on lower dose of her lithium, has had her benzodiazepine dosages lowered, during last admission family requested the patient be placed in group home facility in order for her to recuperate her strength and functionality however placement was denied. Daughter has been caring for patient over the past couple weeks full- time with increased difficulty. Has noticed increased agitation and confusion over the past several days. Denies trauma, denies headache fever nausea vomiting 12: 15 patient resting comfortably labs and imaging largely unremarkable. Hospitalist has refused admission for this patient as he says we do not take social admissions at this hospital. I explained to the hospitalist that primary silo filler feels comfortable caring for this patient and the patient cannot care for self. I have been referred to discussed case with care management team. manager french has come to the bedside with admission criteria as informed the family that patient does not meet admission criteria for failure to thrive. Apparently the inpatient team and care management team have had la rge amount of frustration with this patient's family with regards to plans. She has been provided with home care resources including PT OT and visiting home health care. Patient is hemodynamically stable no acute distress. Family has informed care management team that they will likely take her to [facility]. Will print labs and imaging that way patient does not need to have repeat labs and imaging done if they do decide to go to [facility]. 12: 35 evidence of UTI, daughter endorses that she was found of UTI earlier this week and started on antibiotic. I have called Irina kwong and confirmed that patient is taking cefuroxime. Instructed daughter to continue administering antibiotic, she had been giving a half dose that she was worried about giving her diarrhea, I instructed her to give the full dose as urinary tract infections can cause delirium. Related Data Home Medications Medication Instructions Recorded Confirmed cholecalciferol (vitamin D3) 50 2,000 unit PO DAILY 09/18/12 11/19/21 mcg (2,000 unit) tablet (Vitamin D3) multivitamin 1 ea PO DAILY 09/18/12 11/19/21 aspirin 81 mg chewable tablet 81 mg PO DAILY 12/11/14 11/19/21 (Aspirin Low-Strength) miconazole nitrate 2 % topical 1 applic topical DAILY 11/27/19 11/19/21 powder (Desenex) acetaminophen 500 mg tablet 1,000 mg PO TID PRN pain #270 tabs 02/20/20 11/19/21 (Tylenol Extra Strength) polyethylene glycol 3350 17 gram 17 g PO DAILY PRN PRN Constipation 12/13/20 11/19/21 oral powder packet #0 ea carvedilol 12.5 mg tablet 12.5 mg PO BID #60 tabs 02/09/21 11/19/21 folic acid 1 mg tablet 1 mg PO DAILY #30 tabs 02/09/21 11/19/21 levothyroxine 50 mcg tablet 50 mcg PO DAILY #30 tabs 02/09/21 11/19/21 pantoprazole 40 mg tablet,delayed 40 mg PO DAILY #30 tabs 02/09/21 11/19/21 release hydroxyzine HCl 25 mg tablet 25 mg PO PRN PRN 12/18/21 06/25/22 melatonin 5 mg capsule 5 mg PO HS 05/14/21 11/19/21 ondansetron 4 mg disintegrating 4 mg PO Q8H PRN 05/19/21 11/19/21 tablet quetiapine 100 mg tablet 150 mg PO QPM 11/19/21 11/19/21 docusate sodium 100 mg capsule 100 mg PO BID #60 caps 12/01/21 (Colace) ferrous sulfate 325 mg (65 mg 325 mg PO BID #60 tabs 12/01/21 iron) tablet lorazepam 1 mg tablet 0.5 mg PO BID PRN PRN #0 tabs 12/01/21 11/19/21 quetiapine 50 mg tablet 100 mg PO DAILY #60 tabs 12/01/21 lithium carbonate 150 mg capsule 150 mg PO ONCE #30 caps 12/15/21 12/15/21 Previous Rx's Medication Instructions Recorded acetaminophen 500 mg tablet 1,000 mg PO TID PRN pain #270 tabs 02/20/20 (Tylenol Extra Strength) polyethylene glycol 3350 17 gram 17 g PO DAILY PRN PRN Constipation 12/13/20 oral powder packet #0 ea carvedilol 12.5 mg tablet 12.5 mg PO BID #60 tabs 02/09/21 folic acid 1 mg tablet 1 mg PO DAILY #30 tabs 02/09/21 levothyroxine 50 mcg tablet 50 mcg PO DAILY #30 tabs 02/09/21 pantoprazole 40 mg tablet,delayed 40 mg PO DAILY #30 tabs 02/09/21 release docusate sodium 100 mg capsule 100 mg PO BID #60 caps 12/01/21 (Colace) ferrous sulfate 325 mg (65 mg 325 mg PO BID #60 tabs 12/01/21 iron) tablet lorazepam 1 mg tablet 0.5 mg PO BID PRN PRN #0 tabs 12/01/21 quetiapine 50 mg tablet 100 mg PO DAILY #60 tabs 12/01/21 lithium carbonate 150 mg capsule 150 mg PO ONCE #30 caps 12/15/21 Allergies Allergy/AdvReac Type Severity Reaction Status Date / Time fluoxetine Allergy Mild Verified 05/19/21 10:52 olanzapine Allergy Mild Verified 11/20/21 13:30 trazodone Allergy Mild Verified 05/19/21 10:52 haloperidol AdvReac Severe Verified 11/20/21 13:30 Phenothiazines AdvReac Severe DYSTONIA Verified 05/19/21 10:52 General Stated Complaint: AMS/LOC GRANT: 3 Review of Systems Narrative: Review of Systems Constitutional: negative Eyes: negative ENT: negative Cardiovascular: negative Respiratory: negative Gastrointestinal: negative : negative Musculoskeletal: negative Skin: negative Neurologic: Abnormal behavior agitation Psych: Abnormal behavior agitation PFSH All Active Problems (Updated 12/17/21 @ 12:37 by Jose Alfredo Castro MD) Agitation (Acute) Acute UTI (Acute) Follow-up exam (Acute) to [facility] Hosp D/C (11/28/21 Adm x 2 weeks).. and Urgent Care for UTI(?) Bipolar 2 disorder (Chronic 01/30/17) Per Dr. Heath, with severe treatment resistant dpressive phases vs treatment resistant depression 01/25/17 Palliative care encounter (Acute) Hypoxemia (Acute) Anemia (Chronic) Fall (Acute) October ... led to hosp? Asymmetrical sensorineural hearing loss (Acute) Anxiety (Chronic) Sensorineural hearing loss, bilateral (Acute) Knee pain, right (Acute) Hip pain, right (Acute) Encephalopathy acute (Acute) Multiple fractures of ribs (Acute 12/09/13) Hearing loss (Chronic) Chronic kidney disease, stage III (moderate) (Chronic 09/26/11) 08/25/2016 [facility] nephro consult: JOSE-I or ARB not recommended for this pt DJD (degenerative joint disease), lumbar (Acute 12/26/13) x-ray 12/2013 Depressive disorder (Acute 11/11/12) Dr. Esther Heath, Psychiatrist Multiple hospitalizations Psych dx's: unipolar vs. bipolar 2 depression, multiple episodes of delirium in response to medications in the past during previous hospitalizations Essential hypertension (Chronic 10/01/12) Heartburn (Acute 11/11/12) Hyperlipidemia (Acute 11/11/12) TLCs Lumbar scoliosis (Acute 12/26/13) X-ray 12/2013; moderate L convex lumbar scoliosis Urge incontinence of urine (Acute 11/11/12) Maggie Richards; wears depends at night Major depressive disorder (Chronic 05/10/13) With agitation. With Catatonia. S/P multiple psychiatric admissions. On [place], Lorazepam, Nortriptyline and Quetiapine as an out-patient, unclear doses. Hyperlipidemia (Chronic) Hypothyroidism (Chronic) Constipation (Chronic) Medical History (Updated 12/17/21 @ 12:37 by Jose Alfredo Castro MD) CKD (chronic kidney disease) Deep vein thrombosis (12/08/13) DVT (deep venous thrombosis) (12/08/13) 09/2013 L at OSH, (confirmed 11/2013 [facility] bc pt off therapy) RX Xarelto GERD (gastroesophageal reflux disease) HLD (hyperlipidemia) HTN (hypertension) Hypothyroidism (11/11/12) Tardive dyskinesia (04/17/16) Dr. 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 multiple month hospitalization 2013 Surgical History S/P ORIF (open reduction internal fixation) fracture Family History Brother Heart disease Stroke Brother Heart disease Dementia Father Throat cancer Mother Dementia Other Hypertension Social History Smoking/Tobacco Use Status: Never Smoking risk assessment performed?: Yes Alcohol Intake: former Drug use: Never Substance use type: does not use Number of Children: 2 Pets and animals: Yes Pets and animals: cat(s) Current gender identity: female What type of physical activity do you participate in: walking Frequency: daily Seatbelt use: always Do you feel safe at home: Yes Do you feel safe in your relationship?: Yes Exam Narrative Exam Narrative: Physical Examination General: Awake, psychomotor agitation and confusion HEENT: normocephalic, atraumatic; PERRL, EOM intact, conjunctiva normal; dry oral mucosa Neck: supple, trachea midline; full ROM Chest: normal to inspection Respiratory: normal respiratory effort, speaking in full sentences, clear to auscultation, no wheezing, rales or rhonchi Cardiac: regular rate, regular rhythm, S1S2 intact, no murmurs rubs or gallops GI: abdomen soft, non-tender, non-distended; no palpable mass or hepatosplenomegaly Skin: no lesions, rashes or trauma appreciated Neuro: Confusion to situation place and time, roving movements, moving all extre mities, full strength; no cranial nerve deficits Extremities: No peripheral edema Psych: Confusion Course Vital Signs Vital signs: Vital Signs Temperature 36.7 C 12/17/21 07:39 Pulse 108 H 12/17/21 07:39 Respiratory Rate 20 12/17/21 07:39 Blood Pressure 126/58 L 12/17/21 07:39 Pulse Oximetry 97 12/17/21 07:39 Temperature 36.7 C 12/17/21 07:39 Pulse 108 H 12/17/21 07:39 Respiratory Rate 20 12/17/21 07:44 Respiratory Effort 12/17/21 07:44 Respiratory Depth Normal 12/17/21 07:44 Respiratory Pattern Normal 12/17/21 07:44 Blood Pressure 126/58 L 12/17/21 07:39 Blood Pressure Position Supine 12/17/21 07:39 Pulse Oximetry 97 12/17/21 07:39 Oxygen Delivery Method Room Air 12/17/21 07:39 Oxygen Flow Rate 0 12/17/21 07:39
[2021-12-17] MEDS: Normal Saline 500 ML 1000 ML IV (08:53)
[2021-12-17] MEDS: LORazepam 20 MG/10 ML VIAL IVP (08:53)
[2021-12-17 08:56] LABS: Abs Immature Grans 0.03 10^3/uL (0.0-0.06); Absolute Basophil Count 0.01 10^3/uL (0.0-0.2); Absolute Eosinophil Count 0.12 10^3/uL (0.0-0.7); Absolute Lymphocyte Count 1.15 10^3/uL (1.2-3.4); Absolute Monocyte Count 0.81 10^3/uL (0.1-0.8); Absolute Neutrophil Count 7.19 10^3/uL (1.2-6.7); Basophils % 0.1; Eosinophils % 1.3; HCT 34.3 % (36.0-46.0); HGB 10.4 g/dL (11.2-15.7); Immature Grans % 0.3; Lymphocytes % 12.4; MCH 24.5 pg (27.0-33.0); MCHC 30.3 % (32.0-36.0); MCV 81 fL (80-95); MPV 9.1 fL (8.0-11.0); Monocytes % 8.7; Neutrophils % 77.2; Platelet Count 277 10^3/uL (130-400); RBC 4.24 10^6/uL (3.93-5.22); WBC 9.31 10^3/uL (4.4-10.8)
[2021-12-17 09:10] LABS: INR 1.1 (0.9-1.1); PTT Activated 23.2 sec (21.0-27.5); Prothrombin Time 11.1 sec (9.3-11.0)
[2021-12-17 09:17] LABS: Anisocytosis 3+; Diff Comment RBC Morph Reviewed; Hypochromasia 1+
[2021-12-17 09:18] LABS: Poikilocytes 1+
[2021-12-17 09:19] LABS: Lithium < 0.2 mmol/l (0.6-1.2)
[2021-12-17 09:20] LABS: ALT 18 U/L (14-59); AST 21 U/L (15-37); Albumin 3.4 g/dL (3.4-5.0); Alkaline Phosphatase 69 U/L (46-116); Anion Gap 11.6 mmol/L (3-11); BUN 15 mg/dL (7-18); Bilirubin, Total 0.2 mg/dL (0.2-1.0); CO2 23.4 mmol/L (21.0-32.0); CREATININE 1.5 mg/dL (0.55-1.02); Calcium 9.3 mg/dL (8.5-10.1); Chloride 108 mmol/L (98-107); Estimated GFR 33.25 (mL/min/1.73m2); Glucose 115 mg/dL (74-106); Magnesium 1.9 mg/dL (1.8-2.4); Potassium 3.2 mmol/L (3.5-5.1); Sodium 143 mmol/L (136-145); TSH (W/Ref FT4) 1.42 uIU/mL (0.36-3.74); Total Protein 7.7 g/dL (6.4-8.2); Troponin I < 50 ng/L (<or=60)
[2021-12-17 09:21] LABS: Ammonia < 10 umol/L (11-32); ETHANOL BLOOD < 3.0 mg/dL (<10)
--- NOTE | 2021-12-17 09:51 | DI.VRAD_ITS ---
PROCEDURE INFORMATION: Exam: CT Head Without Contrast Exam date and time: 12/17/2021 9:33 AM Age: 81 years old Clinical indication: Altered mental status/memory loss TECHNIQUE: Imaging protocol: Computed tomography of the head without contrast. COMPARISON: CT HEAD WO 11/23/2021 7:41 PM FINDINGS: Brain: Central and cortical brain atrophy evident, appropriate for patient age. There is nonspecific periventricular low attenuation, likely microangiopathic disease. No acute intracranial hemorrhage. Cerebral ventricles: No ventriculomegaly. Paranasal sinuses: Visualized sinuses are unremarkable. No fluid levels. Mastoid air cells: Visualized mastoid air cells are well aerated. Bones/joints: Unremarkable. No acute fracture. Soft tissues: Unremarkable. IMPRESSION: No acute intracranial abnormality. Dictated and Authenticated by: Sandra Botello MD. Ordering:CHELSEY Veliz MD
--- NOTE | 2021-12-17 09:59 | DI.VRAD_ITS ---
PROCEDURE INFORMATION: Exam: XR Chest Exam date and time: 12/17/2021 9:36 AM Age: 81 years old Clinical indication: Other: Confusion TECHNIQUE: Imaging protocol: Radiologic exam of the chest. Views: 1 view. COMPARISON: CT CHEST/ABD/PEL WO 11/19/2021 5:16 AM FINDINGS: Tubes, catheters and devices: Right port catheter terminates in the SVC. Lungs: Patchy airspace opacity at the left base, worrisome for pneumonia. May be residual or recurrent since previous CT examination. Pleural spaces: Unremarkable. No pleural effusion. No pneumothorax. Heart/Mediastinum: Hiatal hernia. No cardiomegaly. Bones/joints: Unremarkable. IMPRESSION: Patchy airspace opacity at the left base, worrisome for pneumonia. May be residual or recurrent since previous CT examination. Dictated and Authenticated by: Sandra Botello MD. Ordering:CHELSEY Veliz MD
[2021-12-17 11:43] LABS: Bilirubin Negative (Negative); Blood Moderate (Negative); Clarity Sl Cloudy (Clear); Glucose Negative (Negative); Ketones Negative (Negative); Leukocyte Esterase Large (Negative); Nitrite Negative (Negative); Urobilinogen 0.2 EU/dL (Up TO 0.2)
[2021-12-17 11:52] LABS: WBC >50 HPF (0-5)
[2021-12-17 11:53] LABS: C & S Indicated? Yes
[2021-12-17 12:06] LABS: *AMPHETAMINES SCREEN URINE Negative (Negative); *BARBITURATES SCREEN URINE Negative (Negative); *BENZODIAZEPINES SCREEN URINE Positive (Negative); Cannabinoids THC Negative (Negative); Cocaine Screen,Urine Negative (Negative); METHADONE URINE SCREEN Negative (Negative); OPIATES URINE SCREEN Negative (Negative); Tricyclic Antidepressants Negative (Negative)
[2021-12-17] MEDS: Heparin 500 UNITS/5 ML SYRINGE (12:48)
--- NOTE | 2021-12-17 13:21 | CMPROGNOTE_ITS ---
- If Service Date Differs Date of service: 12/17/21 Time of Service: 13:21 Care Management Progress Note CM met with Stacy and her daughter Lluvia at bedside in the ED after lengthy discussion with ED provider and Hospitalist regarding request for admission. ED MD stated Stacy was not safe for discharge because her daughter could no longer take care of her, he was unable to identify medical need for admission. CM reviewed previous admissions and [place] guidelines for Failure to Thrive per MD admission diagnosis request. Lluvia was appropriate with this principal technical writer and reviewed the following concerns: -Stacy has some good days and some bad days; Lluvia played a video of her mother walking down the road independently with her rollator walker on a good day. -Lluvia reviewed that bad days are when her mother has increased anxiety and does not sleep. When CM inquired as to medication management, Lluvia reported she did not feel comfortable using daytime seroquel as it makes her mom comatose. Lluvia reported the seroquel at night does not help Stacy sleep and she does not want her sleeping during the day as Lluvia can not sleep during the day. -Lluvia also reviewed concerns central to her mother's blood pressure, and previous HGB levels; CM deferred to medical staff. Though Lluvia reported HGB was 11 then 10 something, then 11 again. -Lluvia reports advocating for restart of lithium with PCP which she started two days ago at a small dose mixed with water. During recent extended admission, [place] was discontinued; review provider notes for further details. Stacy's last admission was for lithium toxicity. -Lluvia stated Stacy will see Dr. Cardenas; Psychiatrist at [facility] on 12/26/21. She will see her PCP again on 01/02/22. Review of previous discharge plan: CM inquired as to placement efforts since Stacy discharged from [facility] as this was detailed in CM discharge note. Lluvia reports Home Health [employer] is coming this week to work on increasing service supports at home stating as long as they can have someone with her overnight. CM reviewed limitation of staffing, process of custodial medicaid (this has been extensively reviewed with Lluvia on multiple admissions). Lluvia confirmed no further efforts towards placement or custodial medicaid attainment have occurred since discharge from [facility]. CM advised overnight staff is challenging, L/T Medicaid will need to be approved and hourly allotment of hours will be assigned; but service requires staff to be available to fill those hours which is currently a barrier to care in the community. Lluvia reported she wanted the medical record documentation to be changed from last admission that stated Stacy was on lithium as she feels this is a barrier to SNF, she reported Stacy was not on the lithium for two weeks during admission so wanted this information removed from her chart and previously had wanted her m other to go to the [facility]. CM reviewed options for placement from the community and provided education central to documentation requirements. Request for admission: CM reviewed need for medical necessity due to insurance requirements and [place] admission guidelines. Lluvia stated I knew I should have just drove to [facility]. CM reviewed that Lluvia is able to seek care for her mother where she wishes; but that CM was not able to advise her to go elsewhere, and it was likely other medical systems would provide the same guidance. In addition, Lluvia appealed recent [facility] discharge. [facility] denied Lluvia's appeal upon discharge. Lluvia is not actively seeking placement as stated upon discharge. She is advocating for lithium to be restarted though she identifies it as a barrier to SNF. Lluvia also wanted her mother to be a full code; ethics consult resulted in following Stacy's wishes to remain DNR/DNI; refer to Palliative notes for further information. Lluvia also reports she is not follow ing medication recommendations as prescribed upon discharge. SW intervention: Motivational Interviewing/Solution Focused Brief Intervention: CM clarified Lluvia's guardianship status and utilized miracle question to determine her goals of care for her mother. Lluvia reports wanting to resume ECT treatments (refer to Palliative note that states resumption would require MD discussion as this conflicts with Stacy's wishes), lithium (not advised per hospitalist documentation) and wants her mother to go back to how she was before. CM provided patient education central to geriatric psych decline and possibility that Stacy may not return to previous baseline, while validating Lluvia's goals for her mother. CM provided empathetic, client centered framework, and validated that it appears Lluvia is working really hard to care for her mom and advocate for what she feels is best for her. CM also encouraged Lluvia to follow recommendations as prescribed regarding medications, and acknowledged the toll of her caretaking role. CM provided strength-based, empathetic approach to encourage Lluvia to care for herself as the caregiver and examine options for custodial care as current situation does not appear sustainable for Lluvia's or Stacy's quality of life. Plan: BAILEY met with Dr. Zayas to review above information. BAILEY requested that Dr. Zayas review previous admission medications and compare to discharge medications to determine if there were any inconsistencies; and to encourage Lluvia to provide medications to her mother as ordered. Per his note, recent antibiotic was ordered for UTI and Lluvia was only providing half the dose ordered for treatment. There appears to be some disconnect between what is advised for patient management and what Lluvia is able or willing to provide. Two weeks ago when Stacy discharged from [facility] inpatient it appears that she was stable on medication regime utilized, walking 200 ft with cues and CGA and was cleared for discharge with comprehensive discharge plan in place, which Kepro confirmed was appropriate.
== END 2021-12-17 13:09 | disposition home or self-care (01) ==
PROVIDERS: Emergency Provider Emergency Medicine; PCP Nurse Practitioner Family
DX: R45.1 Restlessness and agitation (principal); N39.0 Urinary tract infection, site not specified; I12.9 Hypertensive chronic kidney disease with stage 1 through stage 4 chronic kidney disease, or unspecified chronic kidney disease; N18.9 Chronic kidney disease, unspecified; R41.0 Disorientation, unspecified; Z88.8 Allergy status to other drugs, medicaments and biological substances
CPT/HCPCS: 36415; 80053; 80307; 93005; 96361; 96374; 99284; 70450; 71045; 80178; 80320; 81003; 81015; 82140; 83735; 84443; 84484; 85025; 85610; 85730; 87086; 93010; J3490

== ENCOUNTER 2022-02-03 12:31 | Outpatient (REF) | payer MEDICARE, SELFPAY ==
[2022-02-03 14:58] LABS: Abs Immature Grans 0.03 10^3/uL (0.0-0.06); Absolute Basophil Count 0.02 10^3/uL (0.0-0.2); Absolute Eosinophil Count 0.17 10^3/uL (0.0-0.7); Absolute Lymphocyte Count 1.52 10^3/uL (1.2-3.4); Absolute Monocyte Count 0.42 10^3/uL (0.1-0.8); Absolute Neutrophil Count 3.29 10^3/uL (1.2-6.7); Basophils % 0.4; Eosinophils % 3.1; HCT 37.5 % (36.0-46.0); HGB 11.2 g/dL (11.2-15.7); Immature Grans % 0.6; Lymphocytes % 27.9; MCH 26.4 pg (27.0-33.0); MCHC 29.9 % (32.0-36.0); MCV 88 fL (80-95); MPV 9.2 fL (8.0-11.0); Monocytes % 7.7; Neutrophils % 60.3; Platelet Count 351 10^3/uL (130-400); RBC 4.24 10^6/uL (3.93-5.22); RDW 18.9 % (11.7-14.6); RDW-SD 49.9 fL; WBC 5.45 10^3/uL (4.4-10.8)
[2022-02-03 15:26] LABS: ALT 29 U/L (14-59); AST 18 U/L (15-37); Albumin 3.9 g/dL (3.4-5.0); Alkaline Phosphatase 60 U/L (46-116); Anion Gap 14.4 mmol/L (3-11); BUN 23 mg/dL (7-18); Bilirubin, Total 0.2 mg/dL (0.2-1.0); CO2 23.6 mmol/L (21.0-32.0); CREATININE 1.8 mg/dL (0.55-1.02); Calcium 9.1 mg/dL (8.5-10.1); Chloride 103 mmol/L (98-107); Estimated GFR 27.78 (mL/min/1.73m2); Ferritin 58 ng/mL (8-252); Glucose 91 mg/dL (74-106); Potassium 4.2 mmol/L (3.5-5.1); Sodium 141 mmol/L (136-145); Total Protein 7.7 g/dL (6.4-8.2)
[2022-02-03 15:39] LABS: Iron 53 ug/dL (50-170); Total Iron Binding Capacity 329 ug/dL (250-450); Transferrin Sat 16 % (15-50)
== END 2022-02-03 12:32 | disposition home or self-care (01) ==
LOC: LBN 12:31
PROVIDERS: PCP Nurse Practitioner Family; Visit Provider Nurse Practitioner Family
DX: D64.9 Anemia, unspecified (principal); I10 Essential (primary) hypertension
CPT/HCPCS: 80053; 82728; 83540; 83550; 85025

== ENCOUNTER → 2022-02-06 02:26 | Outpatient (CLI) | payer MEDICARE, SELFPAY ==
--- NOTE | 2022-02-06 11:08 | DI.RAD_ITS ---
Exam(s) XR CHEST 2V PA LATERAL EXAM: XR CHEST 2V PA LATERAL CLINICAL HISTORY: f/u PNEUMONIA, J18.9. TECHNIQUE: 2D digital imaging was performed. COMPARISON: CT CT CHEST/ABD/PEL WO from 11/19/2021 CR,XR XR CHEST 1V IN DI DEPT from 12/17/2021 FINDINGS: 2 views: There is a right-sided Port-A-Cath. Its distal tip is in the SVC. Heart size normal. Prominent retrocardiac hiatal hernia is again noted. No new infiltrates nor pleural effusions. No pulmonary edema. Platelike atelectasis or scarring in the lower left lung field is unchanged. No obvious new pulmonary nodules evident. There is height loss of a lower thoracic vertebral body noted which is unchanged from prior CT scan o f 11/19/2021. IMPRESSION: Persistent platelike atelectasis in the lower left lung field. No pleural effusions. No new obvious pulmonary findings. No pneumothorax. DATA REPOSITORY: RADIATION DOSE DELIVERED:
== END ==
PROVIDERS: PCP Nurse Practitioner Family; Visit Provider Nurse Practitioner Family
DX: J18.9 Pneumonia, unspecified organism (principal); J98.11 Atelectasis
CPT/HCPCS: 71046

== ENCOUNTER 2022-02-15 13:18 | Outpatient (CLI) | payer MEDICARE, SELFPAY ==
--- NOTE | 2022-02-15 13:15 | RT.EKG_ITS ---
APPROVED REPORT Exam: Resting ECG Reason for Exam: r/o dysrhythmia causing tachy Patient Location: O HR:107 bpm ECG Measurements Heart Rate 107 AXIS DE 128 P 69 QRSd 90 QRS 14 QT 347 T -10 QTc 463 Conclusion Sinus tachycardia...rate> 99 Atrial premature complexes...SV complexes w/ short R-R intvls Probable left atrial enlargement...P >50mS, <-0.10mV V1 Probable left ventricular hypertrophy...multiple LVH criteria Borderline T abnormalities, inferior leads...T flat/neg, II III aVF
== END 2022-02-15 13:19 | disposition home or self-care (01) ==
LOC: DI.KIM 13:19
PROVIDERS: PCP Nurse Practitioner Family; Visit Provider Nurse Practitioner Family
DX: R00.0 Tachycardia, unspecified (principal); R94.31 Abnormal electrocardiogram [ECG] [EKG]
CPT/HCPCS: 93010

== ENCOUNTER 2022-02-15 14:38 | Outpatient (REF) | payer MEDICARE, SELFPAY ==
[2022-02-15 19:56] LABS: Anion Gap 11.9 mmol/L (3-11); BUN 27 mg/dL (7-18); CO2 23.1 mmol/L (21.0-32.0); Calcium 9.3 mg/dL (8.5-10.1); Chloride 107 mmol/L (98-107); Estimated GFR 24.48 (mL/min/1.73m2); Glucose 111 mg/dL (74-106); Sodium 142 mmol/L (136-145); TSH (W/Ref FT4) 0.46 uIU/mL (0.36-3.74)
== END 2022-02-15 14:39 | disposition home or self-care (01) ==
LOC: LBN 14:38
PROVIDERS: PCP Nurse Practitioner Family; Visit Provider Nurse Practitioner Family
DX: N18.30 Chronic kidney disease, stage 3 unspecified (principal); E03.9 Hypothyroidism, unspecified
CPT/HCPCS: 80048; 84443

== ENCOUNTER 2022-02-24 11:23 | Outpatient (CLI) | payer MEDICARE, SELFPAY ==
--- NOTE | 2022-02-24 11:15 | RT.EKG_ITS ---
APPROVED REPORT Exam: Resting ECG Reason for Exam: Tachycardia Patient Location: O HR:91 bpm ECG Measurements Heart Rate 91 AXIS WA 137 P 41 QRSd 94 QRS -7 QT 383 T -3 QTc 472 Conclusion Sinus rhythm...normal P axis, V-rate 50- 99 Probable left atrial enlargement...P >50mS, <-0.10mV V1 Probable left ventricular hypertrophy...multiple LVH criteria
== END 2022-02-24 11:24 | disposition home or self-care (01) ==
LOC: DI.KIM 11:24
PROVIDERS: PCP Nurse Practitioner Family; Visit Provider Nurse Practitioner Family
DX: R00.0 Tachycardia, unspecified (principal); R94.31 Abnormal electrocardiogram [ECG] [EKG]
CPT/HCPCS: 93010

== ENCOUNTER 2022-02-27 15:53 | Emergency (ER) | payer MEDICARE, SELFPAY ==
[2022-02-27 15:59] VITALS: BP 179/99; PULSE 108; RESP 18; TEMP 36.8; O2SAT 97
--- NOTE | 2022-02-27 16:00 | RT.EKG_ITS ---
APPROVED REPORT Exam: Resting ECG Reason for Exam: tachycardia Patient Location: E HR:109 bpm ECG Measurements Heart Rate 109 AXIS UT 146 P 50 QRSd 95 QRS 1 QT 363 T 5 QTc 489 Conclusion Sinus tachycardia...rate> 99 sinus tachycardia, normal axis, nonischemic
--- NOTE | 2022-02-27 16:27 | W.ED.GENAD ---
Discharge Plan Disposition Patient Disposition: HOME Condition: Improving Discharge Details Clinical Impression: Anxiety, Acute UTI Primary Care Provider: Patricia Goss ED Provider: Jose Alfredo Castro Home Meds and New Rx's Prescriptions: New cephalexin 500 mg capsule 500 mg PO QID 5 Days Qty: 20 0RF No Action ondansetron 4 mg tablet,disintegrating 4 mg PO Q8H PRN buspirone 10 mg tablet 10 mg PO TID Label Comments: reported med per pt family/and [facility] nurse. this was started on 02/13/22 ferrous sulfate 325 mg (65 mg iron) tablet 325 mg PO DAILY metoprolol succinate 25 mg tablet extended release 24 hr 25 mg PO DAILY Qty: 90 0RF nortriptyline 10 mg capsule 10 mg PO DAILY multivitamin 1 EACH tablet 1 ea PO DAILY cholecalciferol (vitamin D3) [Vitamin D3] 2,000 UNIT tablet 2,000 unit PO DAILY aspirin [Aspirin Low-Strength] 81 MG tablet,chewable 81 mg PO DAILY miconazole nitrate [Desenex] 2 % powder 1 applic TP DAILY Rx Instructions: to erythematous areas of groin per discharge [facility] 11/25/19 [facility] acetaminophen [Tylenol Extra Strength] 500 mg tablet 1,000 mg PO TID PRN (Reason: pain) Qty: 270 3RF diclofenac sodium 1 % gel 2 g topical QID PRN (Reason: Right knee pain) lorazepam 1 mg tablet 1 mg PO TID PRN quetiapine 25 mg tablet 25 mg PO BID PRN (Reason: anxiety) amlodipine 10 mg tablet 10 mg PO DAILY cyanocobalamin (vitamin B-12) 1,000 mcg tablet 1,000 mcg PO DAILY melatonin 3 mg tablet 6 mg PO HS folic acid 1 mg tablet See Rx Instructions .ROUTE .COMPLEX Qty: 30 11RF Dose Instruction: TAKE ONE TABLET BY MOUTH EVERY DAY Rx Instructions: TAKE ONE TABLET BY MOUTH EVERY DAY pantoprazole 40 mg tablet,delayed release (DR/EC) See Rx Instructions .ROUTE .COMPLEX Qty: 30 11RF Dose Instruction: TAKE 1 TABLET BY MOUTH IN THE MORNING ON AN EMPTY STOMACH AT LEAST 20-30 MINUTES BEFORE FIRST MEAL Rx Instructions: TAKE 1 TABLET BY MOUTH IN THE MORNING ON AN EMPTY STOMACH AT LEAST 20-30 MINUTES BEFORE FIRST MEAL polyethylene glycol 3350 17 gram Powder In Packet 17 g PO DAILY PRN PRN (Reason: Constipation) Qty: 0 0RF quetiapine 100 mg tablet 150 mg PO QPM docusate sodium [Colace] 100 mg Capsule 100 mg PO BID Qty: 60 0RF Discharge Instructions Instructions: Urinary Tract Infection in Women (ED), Anxiety (ED) Additional Instructions: Please follow-up with primary care physician. Please reach out to home health service to increase visit frequency. Please return to the emergency department for any worsening symptoms. Medical Decision Making 81-year-old female history of bipolar disorder, anxiety, brought in by daughter for evaluation of tachycardia and anxiety worsening this evening, patient denies chest pain shortness of breath nausea vomiting or other systemic signs of illness. Afebrile nontoxic. Interactive alert following commands. Patient appears extremely anxious, fidgeting in bed; no external signs of trauma. Heart lung sounds normal. No respiratory distress. Mild tachycardia on arrival. Patient has been receiving ECT therapy at [facility] over the past several months and has been taking her psychiatric medications as prescribed. Consider likely acute on chronic anxiety versus panic attack versus less likely infectious process however given patient's age and prior UTIs must consider UTI versus unlikely arrhythmia versus less likely metabolic derangement or intracranial process such as bleed edema or mass-effect. Will obtain screening EKG, blood glucose and urinalysis. Will provide anxiolysis in the form of Ativan p.o. Close reassessment of symptoms. Will encourage close follow-up with primary care and psychiatric team. Patient has home health aide resources at home as well as family at home. 17: 53 resting comfortably no acute distress. Evidence of mild UTI. Nontoxic calm cooperative. Discussed with family need for increased home health visits as home health team is only coming once per week and that patient family request. Will start on Keflex. Given home care instructions and return precautions. HPI General Date/Time Provider Initiated Documentation: 02/27/22 16:04. HPI Narrative: 81-year-old female history of bipolar disorder, anxiety, presents brought in by daughter for evaluation of tachycardia and anxiety, chronic recurrent episodes of panic attacks anxiety, multiple admissions in the past for catatonia depression and anxiety as well as metabolic encephalopathy. Has been receiving consistent ECT therapy at [facility] over the past several months; has been taking psychiatric medications as prescribed. Related Data Home Medications Medication Instructions Recorded Confirmed cholecalciferol (vitamin D3) 50 2,000 unit PO DAILY 09/18/12 02/24/22 mcg (2,000 unit) tablet (Vitamin D3) multivitamin 1 ea PO DAILY 09/18/12 02/24/22 aspirin 81 mg chewable tablet 81 mg PO DAILY 12/11/14 02/24/22 (Aspirin Low-Strength) miconazole nitrate 2 % topical 1 applic topical DAILY 11/27/19 02/24/22 powder (Desenex) acetaminophen 500 mg tablet 1,000 mg PO TID PRN pain #270 tabs 02/20/20 02/24/22 (Tylenol Extra Strength) polyethylene glycol 3350 17 gram 17 g PO DAILY PRN PRN Constipation 12/13/20 02/24/22 oral powder packet #0 ea ondansetron 4 mg disintegrating 4 mg PO Q8H PRN 05/19/21 02/24/22 tablet quetiapine 100 mg tablet 150 mg PO QPM 11/19/21 02/24/22 docusate sodium 100 mg capsule 100 mg PO BID #60 caps 12/01/21 02/24/22 (Colace) amlodipine 10 mg tablet 10 mg PO DAILY 02/02/22 02/24/22 cyanocobalamin (vitamin B-12) 1,000 mcg PO DAILY 02/02/22 02/24/22 1,000 mcg tablet diclofenac sodium 1 % topical gel 2 g topical QID PRN Right knee pain 02/02/22 02/24/22 lorazepam 1 mg tablet 1 mg PO TID PRN 02/02/22 02/24/22 melatonin 3 mg tablet 6 mg PO HS 02/02/22 02/24/22 quetiapine 25 mg tablet 25 mg PO BID PRN anxiety 02/02/22 02/24/22 ferrous sulfate 325 mg (65 mg 325 mg PO DAILY 02/03/22 02/24/22 iron) tablet buspirone 10 mg tablet 10 mg PO TID 02/15/22 02/24/22 folic acid 1 mg tablet See Rx Instructions .Route 02/20/22 02/24/22 .COMPLEX #30 tabs pantoprazole 40 mg tablet,delayed See Rx Instructions .Route 02/20/22 02/24/22 release .COMPLEX #30 tabs metoprolol succinate 25 mg 25 mg PO DAILY #90 tab-caps 02/24/22 02/24/22 tablet,extended release 24 hr nortriptyline 10 mg capsule 10 mg PO DAILY 02/24/22 02/24/22 cephalexin 500 mg capsule 500 mg PO QID 5 days #20 caps 02/27/22 Previous Rx's Medication Instructions Recorded acetaminophen 500 mg tablet 1,000 mg PO TID PRN pain #270 tabs 02/20/20 (Tylenol Extra Strength) polyethylene glycol 3350 17 gram 17 g PO DAILY PRN PRN Constipation 12/13/20 oral powder packet #0 ea docusate sodium 100 mg capsule 100 mg PO BID #60 caps 12/01/21 (Colace) folic acid 1 mg tablet See Rx Instructions .Route 02/20/22 .COMPLEX #30 tabs pantoprazole 40 mg tablet,delayed See Rx Instructions .Route 02/20/22 release .COMPLEX #30 tabs metoprolol succinate 25 mg 25 mg PO DAILY #90 tab-caps 02/24/22 tablet,extended release 24 hr cephalexin 500 mg capsule 500 mg PO QID 5 days #20 caps 02/27/22 Allergies Allergy/AdvReac Type Severity Reaction Status Date / Time fluoxetine Allergy Mild Verified 02/24/22 11:31 olanzapine Allergy Mild Verified 02/24/22 11:31 trazodone Allergy Mild Verified 02/24/22 11:31 haloperidol AdvReac Severe Verified 02/24/22 11:31 Phenothiazines AdvReac Severe DYSTONIA Verified 02/24/22 11:31 General Stated Complaint: Anxiety GRANT: 4 Review of Systems Narrative: Review of Systems Constitutional: negative Eyes: negative ENT: negative Cardiovascular: Tachycardia Respiratory: negative Gastrointestinal: negative : negative Musculoskeletal: negative Skin: negative Neurologic: negative Psych: Anxiety PFSH All Active Problems (Updated 02/27/22 @ 17:54 by Jose Alfredo Castro MD) Anxiety (Chronic) Acute UTI (Acute) Chronic kidney disease (CKD), stage IV (severe) (Chronic) 08/25/2016 [facility] [place] consult: JOSE-I or ARB not recommended for this pt Bipolar 2 disorder (Chronic 01/30/17) Per Dr. Heath, with severe treatment resistant dpressive phases vs treatment resistant depression 01/25/17 [facility] Anemia (Chronic) Asymmetrical sensorineural hearing loss (Acute) Anxiety (Chronic) Sensorineural hearing loss, bilateral (Acute) Knee pain, right (Acute) Hip pain, right (Acute) DJD (degenerative joint disease), lumbar (Acute 12/26/13) x-ray 12/2013 Depressive disorder (Acute 11/11/12) Dr. Esther Heath, Psychiatrist Multiple hospitalizations Psych dx's: unipolar vs. bipolar 2 depression, multiple episodes of delirium in response to medications in the past during previous hospitalizations Essential hypertension (Chronic 10/01/12) Heartburn (Acute 11/11/12) Hyperlipidemia (Acute 11/11/12) TLCs Lumbar scoliosis (Acute 12/26/13) X-ray 12/2013; moderate L convex lumbar scoliosis Urge incontinence of urine (Acute 11/11/12) M. Maurice; wears depends at night Major depressive disorder (Chronic 05/10/13) With agitation. With Catatonia. S/P multiple psychiatric admissions. On [place], Lorazepam, Nortriptyline and Quetiapine as an out-patient, unclear doses. Hypothyroidism (Chronic) Constipation (Chronic) Medical History DVT (deep venous thrombosis) (12/08/13) 09/2013 L at OSH, (confirmed 11/2013 [facility] pt off therapy) RX Xarelto GERD (gastroesophageal reflux disease) Multiple fractures of ribs (12/09/13) Pneumonia Sepsis Tardive dyskinesia (04/17/16) Dr. 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 multiple month hospitalization 2013 Surgical History S/P ORIF (open reduction internal fixation) fracture Family History Brother Heart disease Stroke Brother Heart disease Dementia Father Throat cancer Mother Dementia Other Hypertension Social History Smoking/Tobacco Use Status: Never Smoking risk assessment performed?: Yes Alcohol Intake: former Drug use: Never Substance use type: does not use Number of Children: 2 Pets and animals: Yes Pets and animals: cat(s) Current gender identity: female What type of physical activity do you participate in: walking Frequency: daily Seatbelt use: always Do you feel safe at home: Yes Do you feel safe in your relationship?: Yes Exam Narrative Exam Narrative: Physical Examination General: alert, awake, cooperative, appears anxious HEENT: normocephalic, atraumatic; PERRL, EOM intact, conjunctiva normal; no nasal discharge; moist mucous membranes, oral and pharyngeal mucosa normal, tolerating secretions Neck: supple, trachea midline; full ROM Chest: normal to inspection Respiratory: normal respiratory effort, speaking in full sentences, clear to auscultation, no wheezing, rales or rhonchi Cardiac: Tachycardia, regular rhythm, S1S2 intact, no murmurs rubs or gallops GI: abdomen soft, non-tender, non-distended; no palpable mass or hepatosplenomegaly Skin: no lesions, rashes or trauma appreciated Neuro: Moving all extremities, following commands no cranial nerve deficits, no focal motor deficits, no truncal ataxia Psych: Anxious, psychomotor agitation Course Vital Signs Vital signs: Vital Signs Temperature 36.8 C 02/27/22 15:59 Pulse 108 H 02/27/22 15:59 Respiratory Rate 18 02/27/22 15:59 Blood Pressure 179/99 H 02/27/22 15:59 Pulse Oximetry 97 02/27/22 15:59 Temperature 36.8 C 02/27/22 15:59 Temperature Source Tympanic 02/27/22 15:59 Pulse 108 H 02/27/22 15:59 Respiratory Rate 18 02/27/22 15:59 Respiratory Effort 02/27/22 16:01 Blood Pressure 179/99 H 02/27/22 15:59 Blood Pressure Position Supine 02/27/22 15:59 Pulse Oximetry 97 02/27/22 15:59 Oxygen Delivery Method Room Air 02/27/22 15:59 Oxygen Flow Rate 0 02/27/22 15:59 Pain Level 0 02/27/22 15:59
[2022-02-27] MEDS: LORazepam 1 MG TAB PO (16:43)
[2022-02-27 17:04] LABS: Bilirubin Negative (Negative); Blood Trace-intact (Negative); Clarity Clear (Clear); Glucose Negative (Negative); Ketones Negative (Negative); Leukocyte Esterase Small (Negative); Nitrite Negative (Negative); Urobilinogen 0.2 EU/dL (Up TO 0.2)
[2022-02-27 17:21] LABS: Epithelial Cells Moderate HPF (Negative); RBC Negative HPF (0-2); WBC 20-50 HPF (0-5)
[2022-02-27 17:22] LABS: Bacteria Few HPF (Negative); C & S Indicated? Yes; Crystals Negative HPF (Negative); Mucus Negative (Negative); Other Cells Few Transitional (Negative)
[2022-02-27] MEDS: Cephalexin 500 MG CAP PO (17:52)
== END 2022-02-27 18:08 | disposition home or self-care (01) ==
PROVIDERS: Emergency Provider Emergency Medicine; PCP Nurse Practitioner Family
DX: F41.9 Anxiety disorder, unspecified (principal); N39.0 Urinary tract infection, site not specified; B96.4 Proteus (mirabilis) (morganii) as the cause of diseases classified elsewhere; B96.89 Other specified bacterial agents as the cause of diseases classified elsewhere; R00.0 Tachycardia, unspecified
CPT/HCPCS: 87077; 93005; 99283; 81003; 81015; 87086; 87186; 93010; 99284